=== PATIENT | female | born 1940 | race African-American/Black ===

== ENCOUNTER 2018-02-14 18:27 | Emergency (ER) | payer OTHER ==
[2018-02-14] MEDS ORDERED: LACTULOSE 20 GM/30 ML UCUP ONE (21:09)
[2018-02-14 21:15] LABS: Glomerular Filtration Rate > 60 mL/min (>60)
[2018-02-14 21:16] LABS: Potassium 4.1 mEq/L (3.6-5.0)
[2018-02-14 21:20] LABS: Absolute Monocytes 0.5 K/uL (0.1-1.3); Absolute Neutrophil 7.4 K/uL (1.8-8.0); Basophils % 0.5 % (0-1.3); Eosinophils % 0.6 % (0-4.4); Hematocrit 40.7 % (36.0-45.0); Lymphocytes % 20.1 % (15.3-44.8); MCV 100.5 fL (80-100); MPV 10.3 fL (7.6-11.3); Monocytes % 5.4 % (3.3-12.3); RBC Red Blood Cell Count 4.05 M/uL (3.86-4.86)
[2018-02-14 21:22] LABS: Albumin 4.6 g/dL (3.2-5.5); Bilirubin Direct 0.1 mg/dL (0-0.2); Bilirubin Total 1.1 mg/dL (0.3-1.2); Protein, Total 8.1 g/dL (6.0-8.3)
--- NOTE | 2018-02-14 21:43 | ER ---
Nurse's Notes [facility] Name: Estefani Leiva Age: 77 yrs Sex: Female : 1940 Arrival Date: 02/14/2018 Time: 18:31 Bed 14 Private MD: Diagnosis: Constipation, unspecified;Chronic kidney disease, unspecified Presentation: 02/14 18:33 Presenting complaint: Patient states: she hasnt had a bowel movement for 4 days; hx of hj constipation and tried everything; reports nausea and vomiting;. Transition of care: patient was not received from another setting of care. Onset of symptoms was February 14, 2018. Care prior to arrival: None. 18:33 Method Of Arrival: Ambulatory hj 18:33 Acuity: LEORA 3 hj Triage Assessment: 18:35 General: Appears in no apparent distress. uncomfortable, Behavior is calm, cooperative, hj appropriate for age. Pain: Complains of pain in abdomen. GI: Abdomen is non-distended. Historical: - Allergies: 18:35 No Known Allergies; hj - Home Meds: 18:35 amlodipine 10 mg tab 1 tab once daily [Active]; aspirin 81 mg Oral TbEC 1 tab once hj daily [Active]; atorvastatin 40 mg Oral tab 1 tab once daily [Active]; gabapentin 400 mg Oral cap 1 cap 3 times per day [Active]; Humulin 70/30 100 unit/mL (70-30) Sub-Q susp nightly [Active]; isosorbide dinitrate 30 mg Oral tab 1 tab daily [Active]; metformin 1,000 mg Oral tr24 1 tab twice a day [Active]; metoprolol tartrate 100 mg Oral tab 1 tab 2 times per day [Active]; Vesicare 5 mg Oral tab 1 tab once daily [Active]; - PMHx: 18:35 CVA; Diabetes - NIDDM; Hyperlipidemia; Hypertension; hj - PSHx: 18:35 Hysterectomy; hj - Immunization history:: Adult Immunizations up to date. - Family history:: not pertinent. - Social history:: Smoking status: unknown. - Hospitalizations: : No recent hospitalization is reported. - History obtained from: sister. Screenin:50 Abuse screen: Denies threats or abuse. Denies injuries from another. Nutritional aj1 screening: No deficits noted. Tuberculosis screening: No symptoms or risk factors identified. 22:00 Fall Risk None identified. aj1 Assessment: 18:36 GI: Bowel sounds 20:50 General: Appears in no apparent distress. comfortable, Behavior is calm, cooperative, aj1 appropriate for age. Pain: Complains of pain in abdomen. Neuro: Level of Consciousness is awake, alert, obeys commands, Oriented to person, place, time, situation, Speech is normal, Facial symmetry appears normal. Cardiovascular: Patient's skin is warm and dry. Respiratory: Airway is patent Respiratory effort is even, unlabored, Respiratory pattern is regular, symmetrical. GI: Abdomen is round non-distended, Bowel sounds present X 4 quads. Abd is soft and non tender X 4 quads. Reports constipation, Patient currently denies diarrhea, nausea, vomiting. : No signs and/or symptoms were reported regarding the genitourinary system. EENT: No signs and/or symptoms were reported regarding the EENT system. Derm: No signs and/or symptoms reported regarding the dermatologic system. Skin is pink, warm \T\ dry. normal. Musculoskeletal: No signs and/or symptoms reported regarding the musculoskeletal system. Circulation, motion, and sensation intact. 21:37 Reassessment: Patient appears in no apparent distress at this time. No changes from aj1 previously documented assessment. Patient and/or family updated on plan of care and expected duration. Pain level reassessed. Patient is alert, oriented x 3, equal unlabored respirations, skin warm/dry/pink. 22:00 Reassessment: Patient appears in no apparent distress at this time. No changes from aj1 previously documented assessment. Patient and/or family updated on plan of care and expected duration. Pain level reassessed. Patient is alert, oriented x 3, equal unlabored respirations, skin warm/dry/pink. Vital Signs: 18:36 BP 120 / 56; Pulse 94; Resp 18; Temp 98.5(O); Pulse Ox 99% on R/A; Weight 77.11 kg; Height 5 ft. 7 in. (170.18 cm); Pain 10/10; 20:50 BP 182 / 80; Pulse 89; Resp 18; Pulse Ox 97% ; aj1 21:38 BP 160 / 73; Pulse 91; Resp 18; Pulse Ox 98% on R/A; aj1 18:36 Body Mass Index 26.63 (77.11 kg, 170.18 cm) ED Course: 18:31 Patient arrived in ED. mr 18:34 Triage completed. hj 18:36 Arm band placed on left wrist. 20:33 [facility] Portillo [facility]. ka 20:33 Nader Santos MD is Attending Physician. ka 20:46 Tabitha Jean Baptiste, RN is Primary Nurse. aj1 20:50 Patient has correct armband on for positive identification. Bed in low position. Call aj1 light in reach. Side rails up X 1. 20:50 No provider procedures requiring assistance completed. Initial lab(s) drawn, by mn, aj1 sent to lab. Inserted saline lock: 20 gauge in left antecubital area, using aseptic technique. Blood collected. 22:00 IV discontinued, intact, bleeding controlled, No redness/swelling at site. Pressure aj1 dressing applied. Administered Medications: 21:09 Drug: Lactulose 20 grams Volume: 30 ml; Route: PO; aj1 22:40 Follow up: Response: No adverse reaction aj 22:27 Drug: [place] (7.5 mg-325 mg) 1 tabs Route: PO; aj1 22:40 Follow up: Response: No adverse reaction aj Outcome: 21:42 Discharge ordered by . ka 22:00 Discharged to home via wheelchair, with family. aj1 22:00 Condition: good 22:00 Discharge instructions given to patient, Instructed on discharge instructions, follow up and referral plans. medication usage, Demonstrated understanding of instructions, follow-up care, medications, Prescriptions given X 1. 22:44 Patient left the ED. [facility] Signatures: Tabitha Jean Baptiste, RN RN aj Clari Portillo FNP FNP kav Rivera, Maria mr De La GarzaEdgar RN RN Corrections: (The following items were deleted from the chart) 18:34 18:33 Presenting complaint: Patient states: she hasnt had a bowel movement for 4 days; hj hx of constipation and tried everything; hj 18:39 18:36 Pulse 101bpm; Resp 18bpm; Pulse Ox 99% RA; Temp 98.5F Oral; 77.11 kg; Height 5 hj ft. 7 in.; BMI: 26.6; Pain 10/10; hj
--- NOTE | 2018-02-14 21:43 | EDPHYS ---
Physician Documentation [facility] Name: Estefani Leiva Age: 77 yrs Sex: Female : 1940 Arrival Date: 02/14/2018 Time: 18:31 Bed 14 Private MD: ED Physician Nader Santos HPI: 02/14 20:33 This 77 yrs old Black Female presents to ER via Ambulatory with complaints of kav Constipation. 20:35 Onset: The symptoms/episode began/occurred 4 day(s) ago. Associated signs and symptoms: kav Pertinent positives:. 20:55 The patient has not recently seen a physician. reports diffuse "...crampy abdominal kav pain". 20:56 The patient presents with abdominal pain that is diffuse. Onset: The symptoms/episode kav began/occurred acutely, 4 day(s) ago. The symptoms do not radiate. Associated signs and symptoms: Pertinent positives: constipation, Pertinent negatives: nausea and vomiting, blood in stools. The symptoms are described as crampy. Modifying factors: The symptoms are alleviated by nothing, the symptoms are aggravated by nothing. Severity of pain: At its worst the pain was very mild just prior to arrival. The patient has experienced a previous episode, approximately 1 years ago. Historical: - Allergies: 18:35 No Known Allergies; hj - Home Meds: 18:35 amlodipine 10 mg tab 1 tab once daily [Active]; aspirin 81 mg Oral TbEC 1 tab once hj daily [Active]; atorvastatin 40 mg Oral tab 1 tab once daily [Active]; gabapentin 400 mg Oral cap 1 cap 3 times per day [Active]; Humulin 70/30 100 unit/mL (70-30) Sub-Q susp nightly [Active]; isosorbide dinitrate 30 mg Oral tab 1 tab daily [Active]; metformin 1,000 mg Oral tr24 1 tab twice a day [Active]; metoprolol tartrate 100 mg Oral tab 1 tab 2 times per day [Active]; Vesicare 5 mg Oral tab 1 tab once daily [Active]; - PMHx: 18:35 CVA; Diabetes - NIDDM; Hyperlipidemia; Hypertension; hj - PSHx: 18:35 Hysterectomy; hj - Immunization history:: Adult Immunizations up to date. - Family history:: not pertinent. - Social history:: Smoking status: unknown. - Hospitalizations: : No recent hospitalization is reported. - History obtained from: sister. ROS: 20:58 Constitutional: Negative for fever, chills, and weight loss, Eyes: Negative for injury, kav pain, redness, and discharge, ENT: Negative for injury, pain, and discharge, Neck: Negative for injury, pain, and swelling, Cardiovascular: Negative for chest pain, palpitations, and edema, Respiratory: Negative for shortness of breath, cough, wheezing, and pleuritic chest pain, Back: Negative for injury and pain, : Negative for injury, bleeding, discharge, and swelling, MS/Extremity: Negative for injury and deformity, Skin: Negative for injury, rash, and discoloration, Neuro: Negative for headache, weakness, numbness, tingling, and seizure, Psych: Negative for depression, anxiety, suicide ideation, homicidal ideation, and hallucinations, Allergy/Immunology: Negative for hives, rash, and allergies, Endocrine: Negative for neck swelling, polydipsia, polyuria, polyphagia, and marked weight changes, Hematologic/Lymphatic: Negative for swollen nodes, abnormal bleeding, and unusual bruising. 20:58 Abdomen/GI: Positive for abdominal pain, constipation, abdominal cramps, Negative for nausea and vomiting, diarrhea, abdominal distension, black/tarry stool, rectal pain, rectal bleeding. Exam: 20:58 Constitutional: This is a well developed, well nourished patient who is awake, alert, kav and in no acute distress. Head/Face: Normocephalic, atraumatic. Eyes: Pupils equal round and reactive to light, extra-ocular motions intact. Lids and lashes normal. Conjunctiva and sclera are non-icteric and not injected. Cornea within normal limits. Periorbital areas with no swelling, redness, or edema. ENT: Nares patent. No nasal discharge, no septal abnormalities noted. Tympanic membranes are normal and external auditory canals are clear. Oropharynx with no redness, swelling, or masses, exudates, or evidence of obstruction, uvula midline. Mucous membranes moist. Neck: Trachea midline, no thyromegaly or masses palpated, and no cervical lymphadenopathy. Supple, full range of motion without nuchal rigidity, or vertebral point tenderness. No Meningismus. Chest/axilla: Normal chest wall appearance and motion. Nontender with no deformity. No lesions are appreciated. Cardiovascular: Regular rate and rhythm with a normal S1 and S2. No gallops, murmurs, or rubs. Normal PMI, no JVD. No pulse deficits. Respiratory: Lungs have equal breath sounds bilaterally, clear to auscultation and percussion. No rales, rhonchi or wheezes noted. No increased work of breathing, no retractions or nasal flaring. Back: No spinal tenderness. No costovertebral tenderness. Full range of motion. Skin: Warm, dry with normal turgor. Normal color with no rashes, no lesions, and no evidence of cellulitis. MS/ Extremity: Pulses equal, no cyanosis. Neurovascular intact. Full, normal range of motion. Neuro: Awake and alert, GCS 15, oriented to person, place, time, and situation. Cranial nerves II-XII grossly intact. Motor strength 5/5 in all extremities. Sensory grossly intact. Cerebellar exam normal. Normal gait. Psych: Awake, alert, with orientation to person, place and time. Behavior, mood, and affect are within normal limits. 20:58 Abdomen/GI: Inspection: abdomen appears normal, Bowel sounds: normal, in all quadrants, Palpation: soft, in all quadrants, mild abdominal tenderness, in all quadrants. Vital Signs: 18:36 BP 120 / 56; Pulse 94; Resp 18; Temp 98.5(O); Pulse Ox 99% on R/A; Weight 77.11 kg; hj Height 5 ft. 7 in. (170.18 cm); Pain 10/10; 20:50 BP 182 / 80; Pulse 89; Resp 18; Pulse Ox 97% ; aj1 21:38 BP 160 / 73; Pulse 91; Resp 18; Pulse Ox 98% on R/A; aj1 18:36 Body Mass Index 26.63 (77.11 kg, 170.18 cm) MDM: 20:33 Patient medically screened. kav 20:58 Data reviewed: vital signs, nurses notes. kav 21:31 Data reviewed: lab test result(s), CBC, electrolytes, creatinine, 1.03. kav 21:33 Data reviewed: lab test result(s), electrolytes, baseline creatinine 1.03. patient is kav at baseline. 21:37 ED course: patient reports abdominal pain 7/10. kav 02/14 20:36 Order name: Amylase, Serum kav 02/14 20:36 Order name: Basic Metabolic Panel [facility] 02/14 20:36 Order name: CBC with Diff [facility] 02/14 20:36 Order name: Creatinine for Radiology [facility] 02/14 20:36 Order name: Hepatic Function [facility] 02/14 20:36 Order name: Lipase [facility] 02/14 20:36 Order name: Urine Microscopic Only [facility] 02/14 21:16 Order name: Creatinine (Radiology Only); Complete Time: 21:29 EDMS 02/14 21:29 Interpretation: Normal except: CRE 1.07. [facility] 02/14 21:16 Order name: Basic Metabolic Panel; Complete Time: 21:29 EDMS 02/14 21:29 Interpretation: Normal except: GLUC 123; CRE 1.03; GFR 63. [facility] 02/14 21:16 Order name: Lipase; Complete Time: 21:29 EDMS 02/14 21:30 Interpretation: Abnormal: LIP 16. [facility] 02/14 21:22 Order name: CBC with Automated Diff; Complete Time: 21:50 EDOH 02/14 21:29 Interpretation: Normal except: MCV 100.5; RDW 15.4. [facility] 02/14 21:22 Order name: Liver (Hepatic) Function; Complete Time: 21:29 EDMS 02/14 21:29 Interpretation: Within normal limits. [facility] 02/14 21:22 Order name: Amylase Level; Complete Time: 21:30 EDMS 02/14 21:30 Interpretation: Abnormal: PATRICIA 199. [facility] 02/14 21:46 Order name: CBC Smear Scan; Complete Time: 21:50 EDOH 02/14 20:36 Order name: IV Saline Lock; Complete Time: 21:09 [facility] 02/14 20:36 Order name: Labs collected and sent; Complete Time: 21:09 [facility] Administered Medications: 21:09 Drug: Lactulose 20 grams Volume: 30 ml; Route: PO; aj1 22:40 Follow up: Response: No adverse reaction aj1 22:27 Drug: [place] (7.5 mg-325 mg) 1 tabs Route: PO; aj1 22:40 Follow up: Response: No adverse reaction aj1 Disposition: 02/15 06:21 Co-signature as Attending Physician, Nader Santos MD. Disposition: 02/14/18 21:42 Discharged to Home. Impression: Constipation, unspecified, Chronic kidney disease, unspecified. - Condition is Stable. - Discharge Instructions: Constipation, Adult, [id number]. - Prescriptions for Miralax 17 gram/dose Oral - take 1 packet by ORAL route once daily dilute powder in 8 ounces of water or juice; 1 Container. - Medication Reconciliation Form, Thank You Letter, Antibiotic Education, Prescription Opioid Use form. - Follow up: Private Physician; When: 1 week; Reason: Recheck today's complaints, Continuance of care, Re-evaluation by your physician. - Problem is new. - Symptoms are unchanged. - Notes: f/u with nephrology for chronic kidney disease. baseline creatinine 1.3 Signatures: Dispatcher [employer] EDMS Tabitha Jean Baptiste RN RN ajClari Camarillo FNP Edgar Brown RN RN hj Nader Santos MD MD gs Corrections: (The following items were deleted from the chart) 02/14 20:57 20:55 Modifying factors: The patient symptoms are alleviated by nothing, the patient kav symptoms are aggravated by nothing, kav 20:57 20:55 The patient has experienced similar episodes in the past, chronically, kav kav 20:57 20:55 The patient has experienced a previous episode, approximately 1 years ago, The kav patient has experienced similar episodes in the past, chronically, kav
[2018-02-14 21:45] LABS: Platelet Estimate ADEQ; Urine White Blood Cell Casts OK
[2018-02-14 21:46] LABS: Anisocytosis SLIGHT; Blood Morphology Comment NOTED (NOT SEEN); Poikilocytosis SLIGHT
[2018-02-14] MEDS ORDERED: HYDROCODONE/APAP 7.5/325 MG TAB ONE (22:40)
[2018-02-14 22:54] VITALS: TEMP 98.5
[2018-02-14 22:56] VITALS: BP 160/73; O2SAT 98
== END 2018-02-14 22:44 | disposition home or self-care (01) ==
LOC: ER 18:27
DX: K59.00 Constipation, unspecified (principal); N18.9 Chronic kidney disease, unspecified; E11.9 Type 2 diabetes mellitus without complications; E78.5 Hyperlipidemia, unspecified; I10 Essential (primary) hypertension
CPT/HCPCS: 36415; 80048; 80076; 82150; 83690; 85025; 99284

== ENCOUNTER 2018-07-13 10:41 | Emergency (ER) | payer OTHER ==
[2018-07-13 12:20] LABS: Absolute Lymphocytes (CBC) 1.2 K/uL (0.7-4.9); Absolute Monocytes 0.3 K/uL (0.1-1.3); Absolute Neutrophil 4.1 K/uL (1.8-8.0); Basophils % 0.7 % (0-1.3); Eosinophils % 1.4 % (0-4.4); Hematocrit 40.8 % (36.0-45.0); Lymphocytes % 20.4 % (15.3-44.8); MCH 32.6 pg (27.0-35.0); MPV 11.8 fL (7.6-11.3); Monocytes % 5.8 % (3.3-12.3); RBC Red Blood Cell Count 4.08 M/uL (3.86-4.86)
[2018-07-13 12:28] LABS: Potassium 4.1 mmol/L (3.5-5.1)
--- NOTE | 2018-07-13 13:15 | ER ---
Nurse's Notes [facility] Name: Estefani Leiva Age: 78 yrs Sex: Female : 1940 Arrival Date: 07/13/2018 Time: 10:45 Bed 13 Private MD: Deo Peres Diagnosis: Diarrhea, unspecified Presentation: 07/13 11:10 Presenting complaint: Patient states: Chronic loose stool for 2-3 months. Seen in this ER and followed up with PCP for same complaint. Reports 3-4 loose stools this AM. Transition of care: patient was not received from another setting of care. Onset of symptoms was March 2018. Risk Assessment: Do you want to hurt yourself or someone else? Patient reports no desire to harm self or others. Initial Sepsis Screen: Does the patient meet any 2 criteria? No. Patient's initial sepsis screen is negative. Does the patient have a suspected source of infection? No. Patient's initial sepsis screen is negative. Care prior to arrival: None. 11:10 Method Of Arrival: Ambulatory 11:10 Acuity: LEORA 4 Triage Assessment: 11:13 General: Appears in no apparent distress. comfortable, Behavior is calm, cooperative, aj appropriate for age. Pain: Denies pain. Neuro: Level of Consciousness is awake, alert, obeys commands, Oriented to person, place, time, situation, Appropriate for age. Respiratory: Airway is patent Respiratory effort is even, unlabored, Respiratory pattern is regular, symmetrical. GI: Abdomen is flat, non-distended, Reports diarrhea. Derm: Skin is intact, is healthy with good turgor, Skin is pink, warm \T\ dry. normal. Historical: - Allergies: 11:13 No Known Allergies; - Home Meds: 11:13 amlodipine 10 mg tab 1 tab once daily [Active]; aspirin 81 mg Oral TbEC 1 tab once aj daily [Active]; atorvastatin 40 mg Oral tab 1 tab once daily [Active]; gabapentin 400 mg Oral cap 1 cap 3 times per day [Active]; Humulin 70/30 100 unit/mL (70-30) Sub-Q susp nightly [Active]; isosorbide dinitrate 30 mg Oral tab 1 tab daily [Active]; metformin 1,000 mg Oral tr24 1 tab twice a day [Active]; metoprolol tartrate 100 mg Oral tab 1 tab 2 times per day [Active]; Vesicare 5 mg Oral tab 1 tab once daily [Active]; - PMHx: 11:13 CVA; Diabetes - NIDDM; Hyperlipidemia; Hypertension; aj - PSHx: 11:13 Hysterectomy; aj - Immunization history:: Adult Immunizations up to date. - Social history:: Smoking status: Patient/guardian denies using tobacco. - Ebola Screening: : Patient negative for fever greater than or equal to 101.5 degrees Fahrenheit, and additional compatible Ebola Virus Disease symptoms Patient denies exposure to infectious person Patient denies travel to an Ebola-affected area in the 21 days before illness onset No symptoms or risks identified at this time. Screenin:07 Abuse screen: Denies threats or abuse. Denies injuries from another. Nutritional aj screening: No deficits noted. Tuberculosis screening: No symptoms or risk factors identified. Fall Risk None identified. Assessment: 12:07 Reassessment: see triage. aj 12:07 Reassessment: Patient appears in no apparent distress at this time. No changes from aj previously documented assessment. Patient and/or family updated on plan of care and expected duration. Pain level reassessed. Patient is alert, oriented x 3, equal unlabored respirations, skin warm/dry/pink. Patient denies pain at this time. Vital Signs: 11:15 BP 176 / 90; Pulse 89; Resp 16; Temp 98.9; Pulse Ox 98% on R/A; Weight 72.57 kg; Height aj 5 ft. 9 in. (175.26 cm); Pain 0/10; 11:15 Body Mass Index 23.63 (72.57 kg, 175.26 cm) aj ED Course: 10:45 Patient arrived in ED. mr 10:45 Deo Peres MD is Private Physician. mr 11:10 Christina Gómez, RN is Primary Nurse. aj 11:12 Triage completed. aj 11:15 Arm band placed on left wrist. Patient placed in an exam room. aj 11:27 Nader Santos MD is Attending Physician. gs 12:07 Patient has correct armband on for positive identification. Bed in low position. Call aj light in reach. Side rails up X 1. Adult w/ patient. Pulse ox on. NIBP on. 12:07 Inserted saline lock: 20 gauge in left antecubital area, using aseptic technique. Blood aj collected. 13:01 XRAY Abdomen Acute Series In Process Unspecified. EDMS 13:15 Juan Jose Herman MD is Referral Physician. Administered Medications: No medications were administered Outcome: 13:15 Discharge ordered by . 13:50 Patient left the ED. [facility] Signatures: Dispatcher [employer] EDMS Christina Gómez RN RN aj Rivera, Maria mr Martinez, Maria [facility] Nader Santos MD MD Corrections: (The following items were deleted from the chart) 11:16 11:10 Acuity: LEORA 3 aj aj
--- NOTE | 2018-07-13 13:15 | EDPHYS ---
Physician Documentation [facility] Name: Estefani Leiva Age: 78 yrs Sex: Female : 1940 Arrival Date: 07/13/2018 Time: 10:45 Bed 13 Private MD: Deo Peres ED Physician Nader Santos HPI: 07/13 13:13 This 78 yrs old Black Female presents to ER via Ambulatory with complaints of Diarrhea. gs 13:13 The patient presents to the emergency department with diarrhea, loose stools. Onset: gs The symptoms/episode began/occurred 3 month(s) ago. Possible causes: unknown. The symptoms are aggravated by nothing. The symptoms are alleviated by nothing. Associated signs and symptoms: Pertinent negatives: abdominal pain, fever. Severity of symptoms: At their worst the symptoms were moderate in the emergency department the symptoms are unchanged. The patient has experienced similar episodes in the past, a few times. Historical: - Allergies: 11:13 No Known Allergies; aj - Home Meds: 11:13 amlodipine 10 mg tab 1 tab once daily [Active]; aspirin 81 mg Oral TbEC 1 tab once aj daily [Active]; atorvastatin 40 mg Oral tab 1 tab once daily [Active]; gabapentin 400 mg Oral cap 1 cap 3 times per day [Active]; Humulin 70/30 100 unit/mL (70-30) Sub-Q susp nightly [Active]; isosorbide dinitrate 30 mg Oral tab 1 tab daily [Active]; metformin 1,000 mg Oral tr24 1 tab twice a day [Active]; metoprolol tartrate 100 mg Oral tab 1 tab 2 times per day [Active]; Vesicare 5 mg Oral tab 1 tab once daily [Active]; - PMHx: 11:13 CVA; Diabetes - NIDDM; Hyperlipidemia; Hypertension; aj - PSHx: 11:13 Hysterectomy; aj - Immunization history:: Adult Immunizations up to date. - Social history:: Smoking status: Patient/guardian denies using tobacco. - Ebola Screening: : Patient negative for fever greater than or equal to 101.5 degrees Fahrenheit, and additional compatible Ebola Virus Disease symptoms Patient denies exposure to infectious person Patient denies travel to an Ebola-affected area in the 21 days before illness onset No symptoms or risks identified at this time. ROS: 13:13 All other systems are negative. gs Exam: 13:13 Head/Face: Normocephalic, atraumatic. Eyes: Pupils equal round and reactive to light, gs extra-ocular motions intact. Lids and lashes normal. Conjunctiva and sclera are non-icteric and not injected. Cornea within normal limits. Periorbital areas with no swelling, redness, or edema. ENT: Nares patent. No nasal discharge, no septal abnormalities noted. Tympanic membranes are normal and external auditory canals are clear. Oropharynx with no redness, swelling, or masses, exudates, or evidence of obstruction, uvula midline. Mucous membranes moist. Neck: Trachea midline, no thyromegaly or masses palpated, and no cervical lymphadenopathy. Supple, full range of motion without nuchal rigidity, or vertebral point tenderness. No Meningismus. Chest/axilla: Normal chest wall appearance and motion. Nontender with no deformity. No lesions are appreciated. Cardiovascular: Regular rate and rhythm with a normal S1 and S2. No gallops, murmurs, or rubs. Normal PMI, no JVD. No pulse deficits. Respiratory: Lungs have equal breath sounds bilaterally, clear to auscultation and percussion. No rales, rhonchi or wheezes noted. No increased work of breathing, no retractions or nasal flaring. Abdomen/GI: Soft, non-tender, with normal bowel sounds. No distension or tympany. No guarding or rebound. No evidence of tenderness throughout. Back: No spinal tenderness. No costovertebral tenderness. Full range of motion. Skin: Warm, dry with normal turgor. Normal color with no rashes, no lesions, and no evidence of cellulitis. MS/ Extremity: Pulses equal, no cyanosis. Neurovascular intact. Full, normal range of motion. Neuro: Awake and alert, GCS 15, oriented to person, place, time, and situation. Cranial nerves II-XII grossly intact. Motor strength 5/5 in all extremities. Sensory grossly intact. Cerebellar exam normal. Normal gait. 13:13 Constitutional: The patient appears alert, awake. Vital Signs: 11:15 BP 176 / 90; Pulse 89; Resp 16; Temp 98.9; Pulse Ox 98% on R/A; Weight 72.57 kg; Height aj 5 ft. 9 in. (175.26 cm); Pain 0/10; 11:15 Body Mass Index 23.63 (72.57 kg, 175.26 cm) gela MDM: 11:44 Patient medically screened. 13:13 Data reviewed: vital signs, nurses notes. Response to treatment: There is no gs appreciated change of the patient's symptoms at this time, and as a result, I will discharge patient. ED course: pt with chronic loose stools / diarrhea will discharge refer to gi. 07/13 11:51 Order name: CBC with Diff; Complete Time: 12:48 07/13 11:51 Order name: Basic Metabolic Panel; Complete Time: 12:48 07/13 11:51 Order name: XRAY Abdomen Acute Series Administered Medications: No medications were administered Disposition: 07/13/18 13:15 Discharged to Home. Impression: Diarrhea, unspecified. - Condition is Stable. - Discharge Instructions: Chronic Diarrhea. - Medication Reconciliation Form, Thank You Letter, Antibiotic Education, Prescription Opioid Use form. - Follow up: Juan Jose Herman MD; When: 2 - 3 days; Reason: Re-evaluation by your physician. Signatures: Dispatcher [employer] EDChristina Alvarenga RN RN aj [place] [id number] Nader Santos MD MD Corrections: (The following items were deleted from the chart) 13:50 13:15 07/13/2018 13:15 Discharged to Home. Impression: Diarrhea, unspecified. Condition mh5 is Stable. Forms are Medication Reconciliation Form, Thank You Letter, Antibiotic Education, Prescription Opioid Use. Follow up: Juan Jose Herman; When: 2 - 3 days; Reason: Re-evaluation by your physician.
[2018-07-13 13:55] VITALS: BP 176/90; TEMP 98.9; O2SAT 98
--- NOTE | 2018-07-13 14:13 | RAD REPORT ---
EXAM DESCRIPTION: RAD - Abdomen Acute Series - 07/13/2018 1:03 pm CLINICAL HISTORY: Abdominal pain and constipation FINDINGS: Free air is not seen beneath the diaphragm Bilateral interstitial lung opacities are probably mostly chronic. The bowel gas pattern is unremarkable Vascular calcifications are noted
== END 2018-07-13 13:50 | disposition home or self-care (01) ==
LOC: ER 10:41
DX: R19.7 Diarrhea, unspecified (principal); E11.9 Type 2 diabetes mellitus without complications; Z79.4 Long term (current) use of insulin; Z79.84 Long term (current) use of oral hypoglycemic drugs; I10 Essential (primary) hypertension; E78.5 Hyperlipidemia, unspecified; Z86.73 Personal history of transient ischemic attack (TIA), and cerebral infarction without residual deficits
CPT/HCPCS: 36415; 74022; 80048; 85025; 99284

== ENCOUNTER 2018-09-10 04:24 | Observation (INO) | payer OTHER ==
[2018-09-10] MEDS ORDERED: FUROSEMIDE 20 MG/ 2ML VIAL ONE (05:07)
[2018-09-10] MEDS ORDERED: IPRATROPIUM BROM 0.5MG/2.5ML ONE (05:07)
[2018-09-10] MEDS ORDERED: ALBUTEROL 2.5 MG/3 ML NEB SOL ONE (05:07)
[2018-09-10 05:44] LABS: Absolute Lymphocytes (CBC) 1.1 K/uL (0.7-4.9); Absolute Monocytes 0.3 K/uL (0.1-1.3); Absolute Neutrophil 7.5 K/uL (1.8-8.0); Basophils % 0.4 % (0-1.3); Eosinophils % 1.4 % (0-4.4); Hematocrit 40.2 % (36.0-45.0); Lymphocytes % 11.9 % (15.3-44.8); MCH 33.5 pg (27.0-35.0); MCV 102.9 fL (80-100); MPV 11.4 fL (7.6-11.3); Monocytes % 3.8 % (3.3-12.3); RBC Red Blood Cell Count 3.91 M/uL (3.86-4.86)
[2018-09-10 05:50] LABS: Protime INR 1.03
[2018-09-10] MEDS ORDERED: ONDANSETRON 4 MG/2 ML VIAL IV PRN (06:09)
[2018-09-10] MEDS ORDERED: MAGNESIUM HYDROXIDE 8% 30 ML PO PRN (06:09)
[2018-09-10] MEDS ORDERED: ACETAMINOPHEN 500 MG TAB PO PRN (06:09)
--- NOTE | 2018-09-10 06:09 | ER ---
Nurse's Notes [facility] Name: Estefani Leiva Age: 78 yrs Sex: Female : 1940 Arrival Date: 09/10/2018 Time: 04:38 Bed 7 Private MD: Deo Peres Diagnosis: Systolic (congestive) heart failure Presentation: 09/10 04:26 Presenting complaint: Patient states: that she is having trouble breathing and it fc started yesterday. Denies any cough or congestion. Transition of care: patient was not received from another setting of care. Onset of symptoms was September 09, 2018. Risk Assessment: Do you want to hurt yourself or someone else? Patient reports no desire to harm self or others. Initial Sepsis Screen: Does the patient meet any 2 criteria? No. Patient's initial sepsis screen is negative. Does the patient have a suspected source of infection? No. Patient's initial sepsis screen is negative. Care prior to arrival: Glucose check: 223. 04:26 Method Of Arrival: EMS: [facility] 04:26 Acuity: LEORA 3 fc Triage Assessment: 05:13 Respiratory: Reports shortness of breath at rest Onset: The symptoms/episode ao began/occurred at an unknown time. the patient has moderate shortness of breath. Historical: - Allergies: 04:46 No Known Allergies; fc - Home Meds: 04:46 atorvastatin 40 mg Oral tab 1 tab once daily [Active]; Vesicare 5 mg Oral tab 1 tab fc once daily [Active]; Humulin 70/30 100 unit/mL (70-30) Sub-Q susp 32 units in am and 20 units at night [Active]; isosorbide dinitrate 30 mg Oral tab 1 tab daily [Active]; metformin 1,000 mg Oral tr24 1 tab twice a day [Active]; metoprolol tartrate 100 mg Oral tab 1 tab 2 times per day [Active]; Miralax 17 gram/dose Oral powd once daily [Active]; trazodone 50 mg Oral tab 1 tab q hs prn [Active]; metronidazole 500 mg Oral tab 1 tab once daily [Active]; - PMHx: 04:46 CVA; Diabetes - NIDDM; Hyperlipidemia; Hypertension; Chronic Diarrhea; fc - PSHx: 04:46 Hysterectomy; fc - Immunization history:: Last tetanus immunization: unknown. - Social history:: Smoking status: Patient/guardian denies using tobacco, but has a distant history of tobacco abuse. - Ebola Screening: : Patient negative for fever greater than or equal to 101.5 degrees Fahrenheit, and additional compatible Ebola Virus Disease symptoms Patient denies exposure to infectious person Patient denies travel to an Ebola-affected area in the 21 days before illness onset. Screenin:26 Abuse screen: Denies threats or abuse. Nutritional screening: No deficits noted. fc Tuberculosis screening: No symptoms or risk factors identified. 05:13 Fall Risk None identified. ao Assessment: 04:45 General: Appears in no apparent distress. uncomfortable, Behavior is cooperative, ao anxious. Pain:. Neuro: Level of Consciousness is awake, obeys commands, Oriented to person, place, time, situation, Weakness Speech is normal. Cardiovascular: Heart tones S1 S2 Capillary refill < 3 seconds Patient's skin is warm and dry. Rhythm is sinus tachycardia. Respiratory: Airway is patent Respiratory effort is labored, Breath sounds with crackles Breath sounds are diminished bilaterally. GI: Abdomen is obese, Bowel sounds present X 4 quads. : Last void at 04:00. EENT: No signs and/or symptoms were reported regarding the EENT system. Derm: Skin is intact, Skin is pink, warm \T\ dry. normal, Skin temperature is warm. Musculoskeletal: Circulation, motion, and sensation intact. Range of motion: intact in all extremities. 04:47 Reassessment: Patient was all duty. Patient was cleaned with a clean diaper and a clean ao hospital gown. 05:45 Reassessment: Patient appears in no apparent distress at this time. Patient and/or ao family updated on plan of care and expected duration. Pain level reassessed. 06:20 Reassessment: Patient appears in no apparent distress at this time. Patient and/or ao family updated on plan of care and expected duration. Pain level reassessed. Dr Santos at bedside. Patient to stay in the hospital. Patient agree with POC. 07:05 General: Appears in no apparent distress. comfortable, Behavior is calm, cooperative, sv appropriate for age. Pain: Denies pain. Neuro: Level of Consciousness is awake, alert, obeys commands, Oriented to person, place, time, situation, Speech is normal. Respiratory: Respiratory effort is even, unlabored, Respiratory pattern is symmetrical, tachypnea. Derm: Skin is normal. 07:10 Reassessment: Pt cleaning of urinary incontinence. Brief changed, gown and linens sv changed. Vital Signs: 04:26 BP 149 / 98; Pulse 88; Resp 28; Temp 97.9(O); Pulse Ox 85% on R/A; Weight 86.18 kg (R); fc Height 5 ft. 6 in. (167.64 cm) (R); Pain 0/10; 04:28 Pulse Ox 94% on 4 lpm NC; fc 05:23 BP 149 / 98; Pulse 85; Resp 28; Pulse Ox 98% on Nebulizer Mask; Pain 0/10; ao 05:45 BP 145 / 75; Pulse 52; Resp 23; Pulse Ox 96% on 4 lpm NC; ao 06:20 BP 119 / 60; Pulse 68; Resp 23; Pulse Ox 98% on R/A; ao 07:27 BP 150 / 70; Pulse 73; Resp 23; Temp 97; Pulse Ox 98% 2 lpm ; sv 04:26 Body Mass Index 30.67 (86.18 kg, 167.64 cm) ED Course: 04:26 Arm band placed on Patient placed in an exam room, on a stretcher. fc 04:26 Patient has correct armband on for positive identification. Placed in gown. Bed in low fc position. Call light in reach. Side rails up X2. salon shampoo assistant on. Pulse ox on. NIBP on. 04:26 No provider procedures requiring assistance completed. fc 04:38 Patient arrived in ED. fc 04:38 Deo Peres MD is Private Physician. fc 04:40 Nader Santos MD is Attending Physician. gs 04:42 Triage completed. fc 04:46 Ron Canas RN is Primary Nurse. ao 04:56 EKG done, by ED staff, reviewed by Nader Santos MD. ao 05:01 X-ray completed. Portable x-ray completed in exam room. Patient tolerated procedure az well. 05:02 XRAY Chest (1 view) In Process Unspecified. EDMS 05:05 Inserted saline lock: 20 gauge in left antecubital area, using aseptic technique. Blood jd3 collected. 05:05 First set of blood cultures drawn by ED staff. ao 06:07 Marcela Cohen MD is Hospitalizing Provider. gs 07:26 Evy Hancock, RN is Primary Nurse. sv 07:32 Patient admitted, IV remains in place. intact. sv Administered Medications: 05:05 Drug: Albuterol 2.5 mg Route: Inhalation; ao 05:05 Drug: AtroVENT Aerosol 0.5 mg Route: Inhalation; ao 05:07 Drug: Lasix 20 mg Route: IVP; Site: left antecubital; ao 06:23 Follow up: Response: No adverse reaction ao 07:31 Drug: Aspirin Chewable Tablet 324 mg Route: PO; sv 07:33 Follow up: Response: No adverse reaction sv Outcome: 06:08 Decision to Hospitalize by Provider. gs 07:45 Admitted to Tele accompanied by tech, via stretcher, room 406, with oxygen, with chart, sv Report called to Deirdre WINKLER 07:45 Condition: stable 07:45 Instructed on the need for admit. 08:05 Patient left the ED. sv Signatures: Dispatcher [employer] EDMS Evy Hancock RN RN sv Chretien, Felicia, RN RN Ron Canas RN RN ao Starr, Gregory, MD MD Zach Shelton RN RN jHeidi Doyle Corrections: (The following items were deleted from the chart) 07:46 07:45 Instructed on the need for transfer, sv
--- NOTE | 2018-09-10 06:09 | EDPHYS ---
Physician Documentation [facility] Name: Estefani Leiva Age: 78 yrs Sex: Female : 1940 Arrival Date: 09/10/2018 Time: 04:38 Bed 7 Private MD: Deo Peres ED Physician Nader Santos HPI: 09/10 06:01 This 78 yrs old Black Female presents to ER via EMS with complaints of Shortness Of gs Breath. 06:01 The patient has shortness of breath at rest. Onset: The symptoms/episode began/occurred gs acutely, this morning. Duration: The symptoms are continuous, and are unchanged since they started. The patient's shortness of breath is aggravated by nothing, is alleviated by nothing. Associated signs and symptoms: Pertinent negatives: chest pain, diaphoresis, fever, hemoptysis. Severity of symptoms: At their worst the symptoms were severe in the emergency department the symptoms are unchanged. The patient has not experienced similar symptoms in the past. The patient has not recently seen a physician. Historical: - Allergies: 04:46 No Known Allergies; fc - Home Meds: 04:46 atorvastatin 40 mg Oral tab 1 tab once daily [Active]; Vesicare 5 mg Oral tab 1 tab fc once daily [Active]; Humulin 70/30 100 unit/mL (70-30) Sub-Q susp 32 units in am and 20 units at night [Active]; isosorbide dinitrate 30 mg Oral tab 1 tab daily [Active]; metformin 1,000 mg Oral tr24 1 tab twice a day [Active]; metoprolol tartrate 100 mg Oral tab 1 tab 2 times per day [Active]; Miralax 17 gram/dose Oral powd once daily [Active]; trazodone 50 mg Oral tab 1 tab q hs prn [Active]; metronidazole 500 mg Oral tab 1 tab once daily [Active]; - PMHx: 04:46 CVA; Diabetes - NIDDM; Hyperlipidemia; Hypertension; Chronic Diarrhea; fc - PSHx: 04:46 Hysterectomy; fc - Immunization history:: Last tetanus immunization: unknown. - Social history:: Smoking status: Patient/guardian denies using tobacco, but has a distant history of tobacco abuse. - Ebola Screening: : Patient negative for fever greater than or equal to 101.5 degrees Fahrenheit, and additional compatible Ebola Virus Disease symptoms Patient denies exposure to infectious person Patient denies travel to an Ebola-affected area in the 21 days before illness onset. ROS: 06:01 All other systems are negative. gs Exam: 06:01 Head/Face: Normocephalic, atraumatic. Eyes: Pupils equal round and reactive to light, gs extra-ocular motions intact. Lids and lashes normal. Conjunctiva and sclera are non-icteric and not injected. Cornea within normal limits. Periorbital areas with no swelling, redness, or edema. ENT: Nares patent. No nasal discharge, no septal abnormalities noted. Tympanic membranes are normal and external auditory canals are clear. Oropharynx with no redness, swelling, or masses, exudates, or evidence of obstruction, uvula midline. Mucous membranes moist. Neck: Trachea midline, no thyromegaly or masses palpated, and no cervical lymphadenopathy. Supple, full range of motion without nuchal rigidity, or vertebral point tenderness. No Meningismus. Chest/axilla: Normal chest wall appearance and motion. Nontender with no deformity. No lesions are appreciated. 06:01 Abdomen/GI: Soft, non-tender, with normal bowel sounds. No distension or tympany. No guarding or rebound. No evidence of tenderness throughout. Back: No spinal tenderness. No costovertebral tenderness. Full range of motion. Skin: Warm, dry with normal turgor. Normal color with no rashes, no lesions, and no evidence of cellulitis. MS/ Extremity: Pulses equal, no cyanosis. Neurovascular intact. Full, normal range of motion. Neuro: Awake and alert, GCS 15, oriented to person, place, time, and situation. Cranial nerves II-XII grossly intact. Motor strength 5/5 in all extremities. Sensory grossly intact. Cerebellar exam normal. Normal gait. 06:01 Constitutional: The patient appears alert, awake, in obvious distress, severely distressed. 06:01 Cardiovascular: Rate: normal, Rhythm: regular, Pulses: no pulse deficits are appreciated. 06:01 ECG was reviewed by the Attending Physician. 06:01 Respiratory: moderate respiratory distress is noted, Respirations: tachypnea, Breath sounds: rales, that are moderate, are heard diffusely. Vital Signs: 04:26 BP 149 / 98; Pulse 88; Resp 28; Temp 97.9(O); Pulse Ox 85% on R/A; Weight 86.18 kg (R); fc Height 5 ft. 6 in. (167.64 cm) (R); Pain 0/10; 04:28 Pulse Ox 94% on 4 lpm NC; fc 05:23 BP 149 / 98; Pulse 85; Resp 28; Pulse Ox 98% on Nebulizer Mask; Pain 0/10; ao 05:45 BP 145 / 75; Pulse 52; Resp 23; Pulse Ox 96% on 4 lpm NC; ao 06:20 BP 119 / 60; Pulse 68; Resp 23; Pulse Ox 98% on R/A; ao 07:27 BP 150 / 70; Pulse 73; Resp 23; Temp 97; Pulse Ox 98% 2 lpm ; sv 04:26 Body Mass Index 30.67 (86.18 kg, 167.64 cm) fc MDM: 04:40 Patient medically screened. 06:01 Differential diagnosis: CHF exacerbation, Chronic Obstructive Pulmonary Disease gs Myocardial Infarction pneumonia. Data reviewed: vital signs, nurses notes. Response to treatment: the patient's symptoms have markedly improved after treatment, and as a result, I will admit patient. 09/10 04:45 Order name: Basic Metabolic Panel; Complete Time: 07:36 09/10 04:45 Order name: CBC with Diff; Complete Time: 05:55 09/10 04:45 Order name: LFT's; Complete Time: 07:36 09/10 04:45 Order name: Magnesium; Complete Time: 07:36 09/10 04:45 Order name: NT PRO-BNP; Complete Time: 07:36 09/10 04:45 Order name: PT-INR; Complete Time: 06:27 09/10 04:45 Order name: Troponin (emerg Dept Use Only); Complete Time: 07:36 09/10 04:50 Order name: Blood Culture* 09/10 06:15 Order name: CBC with Automated Diff EDMS 09/10 06:15 Order name: CBC with Automated Diff EDMS 09/10 06:15 Order name: Comprehensive Metabolic Panel EDMS 09/10 06:15 Order name: Comprehensive Metabolic Panel EDMS 09/10 06:15 Order name: Magnesium EDMS 09/10 06:15 Order name: Magnesium EDMS 09/10 04:45 Order name: XRAY Chest (1 view) 09/10 04:45 Order name: EKG; Complete Time: 04:46 09/10 06:15 Order name: CONS Physician Consult [facility] 09/10 06:15 Order name: Heart Healthy [facility] 09/10 06:15 Order name: Echo with Doppler [facility] 09/10 06:15 Order name: Phosphorus [facility] 09/10 06:15 Order name: Phosphorus [facility] 09/10 06:15 Order name: NT PRO-BNP [facility] 09/10 06:15 Order name: NT PRO-BNP [facility] 09/10 06:15 Order name: Troponin I [facility] 09/10 06:15 Order name: Troponin I [facility] 09/10 06:15 Order name: Troponin I [facility] 09/10 04:45 Order name: Cardiac monitoring; Complete Time: 04:52 09/10 04:45 Order name: EKG - Nurse/Tech; Complete Time: 04:52 09/10 04:45 Order name: IV Saline Lock; Complete Time: 05:10 09/10 04:45 Order name: Labs collected and sent; Complete Time: 05:10 09/10 04:45 Order name: O2 Per Protocol; Complete Time: 04:52 09/10 04:45 Order name: O2 Sat Monitoring; Complete Time: 04:52 09/10 06:15 Order name: EKG Electrocardiogram [facility] 09/10 06:15 Order name: EKG Electrocardiogram [facility] EC:01 Rate is 81 beats/min. Rhythm is regular. OH interval is prolonged. QRS interval is gs normal. QT interval is prolonged. T waves are Flattened. Clinical impression: Abnormal EKG without significant change and no change 01/14/18, very prolonged pr. Interpreted by me. Administered Medications: 05:05 Drug: Albuterol 2.5 mg Route: Inhalation; ao 05:05 Drug: AtroVENT Aerosol 0.5 mg Route: Inhalation; ao 05:07 Drug: Lasix 20 mg Route: IVP; Site: left antecubital; ao 06:23 Follow up: Response: No adverse reaction ao 07:31 Drug: Aspirin Chewable Tablet 324 mg Route: PO; sv 07:33 Follow up: Response: No adverse reaction sv Disposition: 09/10/18 06:08 Hospitalization ordered by Marcela Cohen for Inpatient Admission. Preliminary diagnosis is Systolic (congestive) heart failure. - Bed requested for Telemetry/MedSurg (Inpatient). - Status is Inpatient Admission. sv - Condition is Stable. - Problem is new. - Symptoms have improved. UTI on Admission? No Signatures: Dispatcher [employer] Evy iLng RN CATHI Nan Mckeon RN RN Celsa Kahn, RN RN Sharif Coello PA PA cp Ortiz, Alex, RN RN ao Starr, Gregory, MD MD Corrections: (The following items were deleted from the chart) 06:13 06:08 Hospitalization Ordered by Marcela Cohen MD for Inpatient Admission. Preliminary mw diagnosis is Systolic (congestive) heart failure. Bed requested for Telemetry/MedSurg (Inpatient). Status is Inpatient Admission. Condition is Stable. Problem is new. Symptoms have improved. UTI on Admission? No. 06:42 06:01 Rate is 81 beats/min. Rhythm is regular. QRS interval is normal. QT interval is gs prolonged. T waves are Flattened. Clinical impression: Abnormal EKG without significant change. Interpreted by me. 08:05 06:13 09/10/2018 06:08 Hospitalization Ordered by Marcela Cohen MD for Inpatient sv Admission. Preliminary diagnosis is Systolic (congestive) heart failure. Bed requested for Telemetry/MedSurg (Inpatient). Status is Inpatient Admission. Condition is Stable. Problem is new. Symptoms have improved. UTI on Admission? No.
[2018-09-10] MEDS ORDERED: CEFEPIME 1 GM/100 ML BAG IV ONE (06:52)
[2018-09-10 07:15] LABS: Albumin 3.5 g/dL (3.4-5.0); Bilirubin Direct 0.2 mg/dL (0-0.2); Bilirubin Total 0.6 mg/dL (0.2-1.0); Potassium 4.2 mmol/L (3.5-5.1); Protein, Total 7.3 g/dL (6.4-8.2); Troponin (Emerg Dept Use Only) 0.08 ng/mL (0.0-0.045)
[2018-09-10 07:24] LABS: Magnesium 1.5 mg/dL (1.8-2.4)
[2018-09-10] MEDS ORDERED: ASPIRIN 81 MG CHEWABLE TABLET ONE (07:35)
--- NOTE | 2018-09-10 08:29 | RAD REPORT ---
EXAM DESCRIPTION: RAD - Chest Single View - 09/10/2018 5:02 am CLINICAL HISTORY: SOB Chest pain. COMPARISON: Abdomen Acute Series dated 07/13/2018; Chest Single View dated 01/14/2018; CHEST SINGLE EW dated 10/19/2012 FINDINGS: Portable technique limits examination quality. Mild bilateral pulmonary opacities are present, likely representing pulmonary edema. Small pleural ef fusions also present. The heart is upper limit normal size. No displaced fractures. IMPRESSION: Mild CHF versus volume overload pattern.
--- NOTE | 2018-09-10 08:43 | P.HP ---
Certification for Inpatient Patient admitted to: Inpatient With expected LOS: >2 Midnights Patient will require the following post-hospital care: None Practitioner: I am a practitioner with admitting privileges, knowledge of patient current condition, hospital course, and medical plan of care. Services: Services provided to patient in accordance with Admission requirements found in Title 42 Section 412.3 of the Code of Federal Regulations Patient History Date of Service: 09/10/18 Reason for admission: Patient with dyspnea History of Present Illness: Patient is a 78-year-old female came to the hospital with difficulty breathing. Patient has shortness of breath. Patient states she has been feeling poorly for a last few days. Her respiratory status has gradually worsened. She came into the emergency room for further evaluation. In the emergency room patient' s workup revealed congestive heart failure. Patient was admitted to the hospital for further workup. Patient denies any orthopnea or PND. Patient has multiple risk factors including hypertension and diabetes. Patient's EKGs had shown a first-degree AV block. Patient has also had chest x-ray with cardiomegaly. Patient's last carotid Doppler also revealed carotid artery stenosis. Patient will get further workup at this time. Allergies No Known Allergies Allergy (Verified 02/07/16 11:56) Home Medications: Amlodipine Besylate 10 mg PO DAILY 09/08/15 Aspirin [Aspirin EC 81 MG] 1 tab PO DAILY 09/08/15 Gabapentin 300 mg PO TID 09/08/15 Isosorbide Toombs [Imdur*] 1 tab PO DAILY 09/08/15 Metformin HCl 1,000 mg PO BID 09/08/15 Metoprolol Tartrate 100 mg PO BID 09/08/15 Simvastatin 20 mg PO BEDTIME 09/08/15 Solifenacin [Vesicare*] 5 mg PO DAILY 09/08/15 Hum Insulin NPH/Reg Insulin Hm [Humulin 70-30 Vial] 20 units SQ BEDTIME Docusate [Colace Cap*] 100 mg PO BID #60 cap 09/10/15 Cyanocobalamin [Vitamin B-12*] 1,000 mcg PO DAILY 02/07/16 Insulin NPH Hum/Reg Insulin Hm [Humulin 70/30 Kwikpen] 20 unit SQ DAILY AT SUPPER 02/07/16 Insulin NPH Hum/Reg Insulin Hm [Humulin 70/30 Kwikpen] 32 unit SQ DAILY WITH BREAKFAST 02/07/16 - Past Medical/Surgical History Diabetic: Yes -: IDDM -: HTN -: HIGH CHOLESTEROL -: CVA -: HYSTERECTOMY - Social History Alcohol use: No CD- Drugs: No Caffeine use: No Physical Examination - Vital Signs Temperature: 97 F Blood Pressure: 150/70 Pulse: 73 Respirations: 23 - Physical Exam General: Alert, In no apparent distress, Oriented x3 HEENT: Atraumatic, Normocephalic Neck: Supple, 2+ carotid pulse no bruit, JVD not distended, No Thyromegaly, Bruit Respiratory: Clear to auscultation bilaterally, Normal air movement Cardiovascular: Regular rate/rhythm, Normal S1 S2, Systolic murmur Gastrointestinal: Normal bowel sounds, Hypoactive, Soft and benign, Non- distended, W/out succussion splash Musculoskeletal: No clubbing, No swelling, No erythema Neurological: Normal gait, Normal speech, Normal tone, Sensation intact, Cranial nerves 3-12 intact, Normal reflexes 2+, Abnormal strength - Studies Laboratory Data (last 24 hrs) 09/10/18 05:05: PT 12.1, INR 1.03 09/10/18 05:05: WBC 9.1, Hgb 13.1, Hct 40.2, Plt Count 188 09/10/18 05:05: Sodium 143, Potassium 4.2, BUN 14, Creatinine 1.10, Glucose 156 H, Magnesium 1.5 L, Total Bilirubin 0.6, AST 63 H, ALT 50, Alkaline Phosphatase 64 Assessment & Plan - Problems (Diagnosis) (1) Shortness of breath Current Visit: Yes Status: Acute (2) Systolic CHF, acute Current Visit: Yes Status: Acute (3) Hypertension Current Visit: Yes Status: Acute (4) Diabetes type 2 with atherosclerosis of arteries of extremities Current Visit: Yes Status: Acute (5) Carotid artery disease Current Visit: Yes Status: Acute - Plan 1. Echocardiogram 2. Start medication for heart failure including angiotensin receptor sony and beta-sony therapy 3. Carotid artery Doppler 4. Cardiology consultation 5. Aggressive diuresis 6. Strict I's and O's 7. Repeat CXR 8. Daily weights 9. Education regarding diet and treatment of congestive heart failure Discharge Plan: Home Plan to discharge in: Greater than 2 days - Advance Directives Does patient have a Living Will: No Does patient have a Durable POA for Healthcare: No - Code Status/Comfort Care Code Status Assessed: Yes Code Status: Full Code Critical Care: No Time Spent Managing PTS Care (In Minutes): 55
[2018-09-10] MEDS: NPH (HUMAN) 100 UNITS/ML INSULIN SQ SCH (08:50)
[2018-09-10] MEDS: FUROSEMIDE 40 MG/4 ML VIAL IV SCH ×2 (08:51→16:17)
[2018-09-10] MEDS: ASPIRIN EC 81 MG TAB PO SCH ×2 (08:53→09:00)
[2018-09-10] MEDS: ENOXAPARIN 40 MG/0.4 ML SQ SCH (08:53)
[2018-09-10] MEDS: METOPROLOL TAR 50 MG TAB PO SCH ×2 (08:53→19:59)
[2018-09-10] MEDS: ISOSORBIDE MONO SR 30 MG TAB PO SCH (08:53)
--- NOTE | 2018-09-10 10:45 | RAD REPORT ---
EXAM DESCRIPTION: US - CP - 09/10/2018 10:07 am CLINICAL HISTORY: carotid artery stenosis COMPARISON: Carotid Artery Bilateral dated 12/27/2016 TECHNIQUE: Real-time sonographic evaluation of both carotid systems was performed. Doppler interroga tion was performed with waveform tracing bilaterally. FINDINGS: There is advanced atherosclerotic plaquing in both proximal internal carotid arteries and carotid artery bulbs. There is turbulent flow with significant elevated peak systolic velocity involving the right carotid bulb measuring 304 cm/second. Right ICA to CCA ratio is 3.2. Marked atherosclerotic plaquing is seen involving the left carotid bulb within elevated peak systolic velocity 304 cm/second. No flow is seen distal to the left internal carotid bulb compatible with jade pected occlusion. The left vertebral artery is poorly seen. The right vertebral artery shows forward flow. IMPRESSION: Suspected occlusion of the left internal carotid artery distal to the left carotid bulb. Significant stenosis involving the right carotid bulb suspected estimated at 90-95%. If further assessment is clinically desired, CTA or MRA would be useful.
[2018-09-10] MEDS ORDERED: Magnesium Sulfate 2gm IVPB 2 G/50 ML BAG IV ONE (11:00)
[2018-09-10] MEDS ORDERED: PNEUMOCOCCAL VACCINE 0.5 ML IMVAC ONE (12:00)
[2018-09-10] MEDS ORDERED: INFLUENZA VACCINE (for 3y+) 0.5 ML DOSE IMVAC ONE (12:00)
--- NOTE | 2018-09-10 12:29 | ECHO ---
HEIGHT: 5 ft 6 in WEIGHT: 189 lb 15.91 oz DATE OF STUDY: 09/10/[address]: Marcela Cohen MD 2-DIMENSIONAL: YES M.MODE: YES DOPPLER: YES COLOR FLOW: YES TDS: NO PORTABLE: NO DEFINITY: NO BUBBLE STUDY: NO DIAGNOSIS: CONGESTIVE HEART FAILURE CARDIAC HISTORY: CATHERIZATION: NO SURGERY: NO PROSTHETIC VALVE: NO PACEMAKER: NO MEASUREMENTS (cm) DIASTOLIC (NORMALS) SYSTOLIC (NORMALS) IVSd 1.3 (0.6-1.2) LA Diam 2.8 (1.9-4.0) LVEF 30-35% LVIDd 4.1 (3.5-5.7) LVIDs 2.8 (2.0-3.5) %FS % LVPWd 1.3 (0.6-1.2) Ao Diam 3.0 (2.0-3.7) 2 DIMENSIONAL ASSESSMENT: RIGHT ATRIUM: NORMAL LEFT ATRIUM: NORMAL RIGHT VENTRICLE: NORMAL LEFT VENTRICLE: NORMAL TRICUSPID VALVE: NORMAL MITRAL VALVE: NORMAL PULMONIC VALVE: NORMAL AORTIC VALVE: NORMAL PERICARDIAL EFFUSION: NONE AORTIC ROOT: NORMAL LEFT VENTRICULAR WALL MOTION: ANTEROAPICAL AKINESIS. DOPPLER/COLOR FLOW: MILD TRICUSPID AND AORTIC REGURGITATION. COMMENTS: ANTEROAPICAL AKINESIS. LEFT VENTRICULAR EJECTION FRACTION 30-35%. MILD TRICUSPID AND AORTIC REGURGITATION. TECHNOLOGIST: Magnolia PHILLIPS
--- NOTE | 2018-09-10 12:35 | EKG ---
Test Date: 2018-09-10 Test Time: 04:54:13 Condominium Property Manager: CARLOS MEASUREMENT RESULTS: Intervals: Rate: 81 [place]: QRSD: 68 QT: 418 QTc: 485 [place]: P: [place]: QRS: 2 T: 47 INTERPRETIVE STATEMENTS: Accelerated Junctional rhythm Prolonged QT Abnormal ECG Compared to ECG 01/14/2018 12:02:40 Accelerated junctional rhythm now present Prolonged QT interval now present Sinus rhythm no longer present First degree AV block no longer present Electronically Signed On 09-10-18 12:33:11 CDT by Erick Pedersen
[2018-09-10] MEDS: SPIRONOLACTONE 25 MG TABLET PO SCH (14:02)
[2018-09-10 14:37] LABS: Urine Appearance CLEAR; Urine Bilirubin NEGATIVE (NEG); Urine Blood NEGATIVE (NEG); Urine Color YELLOW; Urine Glucose NEGATIVE (NEG); Urine Protein NEGATIVE (NEG); Urine Specific Gravity <=1.005 (1.005-1.030); Urine Urobilinogen 0.2 mg/dL (0.2-1.0); Urine pH 5.5 (5.0-7.0)
[2018-09-10 14:38] LABS: Urine Microscopic Reflex NO UMIC
[2018-09-10] MEDS ORDERED: NPH (HUMAN) 100 UNITS/ML INSULIN SQ SCH (17:00)
--- NOTE | 2018-09-10 17:42 | PN ---
Date of Progress Note: 09/10/2018 Subjective: The patient seen and examined. Chart reviewed and case discussed with RN. The patient states her shortness of breath has been improved as has her lower extremity swelling. Review of Systems: Negative except as above. Medications: List reviewed. Code Status: Full. Physical Examination: Vital Signs: Temperature 98.4, heart rate 70, blood pressure 132/65, respirations 18, O2 94% on room air. General: Awake, alert, oriented x3, in some mild distress. Elderly female, obese, ill-appearing. CV: S1, S2. Regular rate and rhythm. Peripheral pulses present. Respiratory: Diminished breath sounds at the bases. No wheezing or stridor. No use of accessory mu scles. Gastrointestinal: Abdomen is soft, nontender, nondistended. Positive bowel sounds. Extremities: No clubbing or cyanosis. Trace pedal edema. Neurologic: Nonfocal. Laboratory Data: Sodium 142, potassium 4.2, chloride 109, CO2 24, BUN 14, creatinine 1.1, glucose 15 6, magnesium 1.5. Troponin 0.08. Repeat troponin level 0.5. BNP 1437. WBC 9.1, H and H 15.1 and 4 0.2, platelet 188. Blood cultures pending. Echocardiogram shows EF of 30-35%. Anterior apical steven esis, mild tricuspid and aortic regurgitation. Assessment And Plan: A 78-year-old female with: 1.Acute systolic congestive heart failure, ejection fraction is 30-35%. Echocardiogram does show so me apical akinesis. We will continue with beta-sony, BISI inhibitor, and diuretics. Monitor I's a nd O's, and continue fluid-restricted diet. 2.Obesity, BMI 30. 3.Hypomagnesemia. Replace and monitor. 4.Shortness of breath secondary to congestive heart failure, improving. 5.Essential hypertension, stable. 6.Diabetes mellitus type 2 with hyperglycemia with long-term use of insulin. 7.Carotid artery disease. Plan: Continue with diuretics. Rest of the plan as above. SA/MODL Voice ID: [id number] Report ID: [id number]
[2018-09-10 19:42] LABS: Magnesium 1.8 mg/dL (1.8-2.4)
[2018-09-10 19:48] LABS: Troponin I 0.55 ng/mL (0.0-0.045)
[2018-09-10] MEDS ORDERED: MAGNESIUM SULFATE 1 gm IVPB 1 GM/100 ML BAG IV ONE (20:50)
[2018-09-11 04:36] LABS: Absolute Lymphocytes (CBC) 1.5 K/uL (0.7-4.9); Absolute Monocytes 0.4 K/uL (0.1-1.3); Absolute Neutrophil 3.2 K/uL (1.8-8.0); Basophils % 0.9 % (0-1.3); Eosinophils % 1.5 % (0-4.4); MCH 33.5 pg (27.0-35.0); MCV 101.5 fL (80-100); Monocytes % 8.3 % (3.3-12.3); RBC Red Blood Cell Count 3.85 M/uL (3.86-4.86)
[2018-09-11 04:53] LABS: Albumin 3.4 g/dL (3.4-5.0); Bilirubin Total 0.6 mg/dL (0.2-1.0); Magnesium 2.1 mg/dL (1.8-2.4); Potassium 3.5 mmol/L (3.5-5.1); Protein, Total 7.1 g/dL (6.4-8.2)
[2018-09-11] MEDS ORDERED: POTASSIUM 25 MEQ EFFERV TAB PO ONE (04:57)
[2018-09-11 05:52] VITALS: BMI 25.2
--- NOTE | 2018-09-11 07:01 | P.PN ---
Date of Service: 09/11/18 Called by nurse overnight as patient was resting comfortably but telemetry strips indicated a first-degree AV block. This was confirmed by EKG however patient also had a second-degree Mobitz type 1 that she wanted to just briefly. Will continue to monitor on telemetry. Cardiology to follow in the morning as well.
--- NOTE | 2018-09-11 07:24 | CON ---
Date of Consultation: 09/10/2018 Reason For Consultation: Congestive heart failure. History Of Present Illness: Ms. Leiva is a 78-year-old black woman, who has a history of chronic diarrhea, has a history of CVA in the past, diabetes, hypertension, and dyslipidemia. She came in wi th shortness of breath. Chest x-ray showed congestive heart failure. Denied chest pain, nausea, vom iting, diaphoresis. She did not have any PND or orthopnea. Denied palpitations or syncope, but did have some edema when she came in. She was hypertensive when she came in at 188/89 that has improved. The patient denied any previous cardiac history. Past Medical History: As stated above. Allergies: NONE. Review of Systems: Negative. Social History: Negative for tobacco, alcohol, and drug use. Family History: Positive for hypertension and diabetes. Medications: At home include insulin, Imdur, metoprolol, metformin, aspirin, Norvasc, Neurontin, Zoc or, and VESIcare. Physical Examination: General: By the time I saw her, she had diuresed well and is feeling better. No complaint. No acut e distress. Normal sinus rhythm, afebrile. HEENT: Negative, Neck: Supple without any bruit, lymphadenopathy, JVD, or thyromegaly. Chest: Reveals some rales at both bases. Cardiac: Revealed a regular rhythm and rate with an S3 gallops. No murmurs or rubs. Abdomen: Benign. Extremities: Revealed trace edema. Laboratory Data: Her troponin was 0.08. Her BNP was 1437. Impression And Plan: 1.New-onset congestive heart failure, possibly systolic. Elevated BNP and troponin. We will get a 2D echocardiogram. The patient is already asymptomatic and has diuresed well. We will see what the echocardiogram shows prior to making final decisions. 2.History of chronic diarrhea. 3.History of cerebrovascular accident. 4.Diabetes. 5.Hypertension, poorly controlled. 6.Dyslipidemia. Ms. Leiva presently does not have any primary care physician and she will need 1 when she goes trish e. She will also need to follow up with us for further outpatient workup. I think she will eventual ly need to have a stress test to evaluate her coronary anatomy. I will discuss the case further with Dr. Cohen. She is on beta-blockers and Norvasc, but she may need an BISI inhibitor to help with her b lood pressure and protect her kidneys from her diabetes and maybe good for her congestive heart failu re as well. She should probably also be on Lasix when she goes home. MACY Voice ID: [id number] Report ID: [id number]
[2018-09-11] MEDS: NPH (HUMAN) 100 UNITS/ML INSULIN SQ SCH (08:00)
[2018-09-11] MEDS: FUROSEMIDE 40 MG/4 ML VIAL IV SCH (08:17)
[2018-09-11] MEDS: ENOXAPARIN 40 MG/0.4 ML SQ SCH (08:18)
[2018-09-11] MEDS: SPIRONOLACTONE 25 MG TABLET PO SCH (08:18)
[2018-09-11] MEDS: ISOSORBIDE MONO SR 30 MG TAB PO SCH (08:18)
[2018-09-11] MEDS: METOPROLOL TAR 50 MG TAB PO SCH (08:18)
[2018-09-11] MEDS: ASPIRIN EC 81 MG TAB PO SCH (08:19)
[2018-09-11 09:06] VITALS: O2SAT 98
--- NOTE | 2018-09-11 10:34 | EKG ---
Test Date: 2018-09-11 Test Time: 02:30:14 Flat Breakdown Processor: RT MEASUREMENT RESULTS: Intervals: Rate: 63 OH: 314 QRSD: 72 QT: 528 QTc: 540 [place]: P: 79 OH: 314 QRS: -26 T: 247 INTERPRETIVE STATEMENTS: Sinus rhythm with 1st degree AV block ST & T wave abnormality, non specific Prolonged QT Abnormal ECG Compared to ECG 09/10/2018 04:54:13 First degree AV block now present ST (T wave) deviation now present Electronically Signed On 09-11-18 10:34:23 CDT by Myles Sood
[2018-09-11] MEDS ORDERED: POLYETHYL GLY 3350 17 GM/DOSE PO PRN (10:53)
[2018-09-11 13:06] VITALS: BP 108/59; TEMP 97.6
[2018-09-11] MEDS ORDERED: ATORVASTATIN 40 MG TAB PO SCH (21:00)
[2018-09-11] MEDS ORDERED: SOLIFENACIN SUCCIN 5 MG TAB PO SCH (21:00)
[2018-09-11] MEDS ORDERED: TRAZODONE 50 MG TABLET PO SCH (21:00)
--- NOTE | 2018-09-12 06:03 | DS ---
Date of Discharge: 09/11/2018 Solar Sales Assessor: Dr. Pedersen with Cardiology. Admitting Diagnoses: 1.Shortness of breath. 2.Acute new-onset systolic congestive heart failure. 3.Essential hypertension. 4.Diabetes mellitus type 2 with hyperglycemia with long-term use of insulin. 5.Carotid artery disease. Discharge Diagnoses: 1.Acute systolic congestive heart failure, new onset, ejection fraction 30% to 35%, improved. 2.Obesity, body mass index 30. 3.Hypomagnesemia, replaced. 4.Shortness of breath secondary to above, improved. 5.Essential hypertension, stable. 6.Diabetes mellitus type 2 with hyperglycemia and long-term use of insulin. 7.Carotid artery disease. 8.Dyslipidemia. 9.History of chronic diarrhea. 10.First-degree atrioventricular block. Hospital Course: The patient is a 78-year-old female who was admitted to the hospital with shortness of breath. The patient was found to have pulmonary edema. The patient's x-ray also showed some car diomegaly. Her BNP was elevated. She also had some troponin elevation, which was likely due to the congestive heart failure. The patient was seen by rock wool insulator, Dr. Pedersen. CHF guidelines were in itiated. The patient had diuresed well. Her shortness of breath improved. Her edema resolved. Her magnesium was replaced. She was recommended to have outpatient workup including stress test and pos sible catheterization done as an outpatient. Echocardiogram was also done, showed depressed ejection fraction of 30% to 35%. I spoke with Dr. Sood. The patient is okay to follow up as an outpatient . She did have some arrhythmia which is first-degree AV block. She will need outpatient workup incl uding stress test once her CHF is more stable. The patient otherwise was doing well. She did not mcghee ve any further symptoms of shortness of breath. She was then discharged in a stable condition. Activity: Fall precautions. Use assistive ambulatory device. Diet: Diabetic diet. Followup: Follow up with rock wool insulator, Dr. Pedersen, in 1 to 2 weeks. Return to ER for worsening con dition. Establish care with PCP in 2 to 3 days. Medications: As per medication reconciliation list. Physical Examination: General: Awake, alert, and oriented x3. No acute distress. Elderly female. CV: S1, S2. No murmurs. Respiratory: Moving air well bilaterally. Abdomen: Abdomen is soft, nontender, and nondistended. Positive bowel sounds. Extremities: No clubbing, cyanosis, or edema. Neurologic: Nonfocal. SA/MODL Voice ID: [id number] Report ID: [id number]
[2018-09-12] MEDS ORDERED: metroNIDAZOLE 500 MG TABLET PO SCH (09:00)
== END 2018-09-11 13:30 | disposition home or self-care (01) ==
LOC: ER 04:24 → ERHOLD 06:10 → INTOOBSV 06:10 → 4TH 07:46
PROVIDERS: ADMIT Hospitalist; ATTEND Hospitalist
DX: I11.0 Hypertensive heart disease with heart failure (principal); I50.21 Acute systolic (congestive) heart failure; E66.9 Obesity, unspecified; Z68.25 Body mass index [BMI] 25.0-25.9, adult; E83.42 Hypomagnesemia; E11.65 Type 2 diabetes mellitus with hyperglycemia; Z79.4 Long term (current) use of insulin; I77.89 Other specified disorders of arteries and arterioles; E78.5 Hyperlipidemia, unspecified; I44.0 Atrioventricular block, first degree; Z86.73 Personal history of transient ischemic attack (TIA), and cerebral infarction without residual deficits; Z23 Encounter for immunization
CPT/HCPCS: 36415; 71045; 80048; 80053; 80076; 81003; 82962 ×4; 83735 ×3; 83880 ×2; 84100; 84484 ×3; 85025 ×2; 85610; 87040 ×2; 93005 ×2; 93306; 93880; 96374; 99285; G0008; G0378 ×2; J0692; J1650 ×2; J1940; J3475 ×2; Q2035; 90670

== ENCOUNTER 2018-10-22 07:00 | Day surgery (SDC) | payer OTHER ==
--- NOTE | 2018-10-10 14:34 | RAD REPORT ---
EXAM DESCRIPTION: RAD - Chest Pa And Lat (2 Views) - 10/10/2018 2:29 pm CLINICAL HISTORY: preop Chest pain. COMPARISON: Chest Single View dated 09/10/2018; Abdomen Acute Series dated 07/13/2018; Chest Single V iew dated 01/14/2018; CHEST SINGLE VIEW dated 10/19/2012 FINDINGS: The lungs are mildly emphysematous but clear. The heart is upper limit normal size. No dis placed fractures. Aortic atherosclerosis. IMPRESSION: Mild COPD.
[2018-10-10 15:20] LABS: Absolute Lymphocytes (CBC) 1.8 K/uL (0.7-4.9); Absolute Monocytes 0.3 K/uL (0.1-1.3); Absolute Neutrophil 3.3 K/uL (1.8-8.0); Basophils % 0.6 % (0-1.3); Eosinophils % 1.5 % (0-4.4); Hematocrit 38.2 % (36.0-45.0); Lymphocytes % 32.3 % (15.3-44.8); MCH 35.3 pg (27.0-35.0); MCV 100.8 fL (80-100); MPV 10.9 fL (7.6-11.3); Monocytes % 5.5 % (3.3-12.3); RBC Red Blood Cell Count 3.79 M/uL (3.86-4.86)
[2018-10-10 15:29] LABS: Protime INR 1.1
[2018-10-10 15:56] LABS: Potassium 4.3 mmol/L (3.5-5.1)
--- NOTE | 2018-10-10 17:11 | EKG ---
Test Date: 2018-10-10 Test Time: 13:39:05 Electrophysiology Scientist: GAVIN MEASUREMENT RESULTS: Intervals: Rate: 57 NE: 430 QRSD: 66 QT: 452 QTc: 439 [place]: P: 56 NE: 430 QRS: -4 T: 78 INTERPRETIVE STATEMENTS: Sinus bradycardia with 1st degree AV block Otherwise normal ECG Compared to ECG 10/10/2018 13:38:17 T-wave abnormality no longer present Electronically Signed On 10-10-18 17:10:17 CLOTH FINISHER by Myles Sood
[2018-10-22] MEDS ORDERED: NA CHLORIDE 0.9% 500 ML ONE (07:52)
[2018-10-22] MEDS ORDERED: ATROPINE SULF 1 MG/10 ML SYR IV ONE (09:24)
[2018-10-22] MEDS ORDERED: NA CHLORIDE 0.9% 0 ML ONE (09:24)
[2018-10-22] MEDS ORDERED: FENTANYL CITR 100 MCG/2 ML ONE ×2 (10:04→10:17)
[2018-10-22] MEDS ORDERED: MIDAZOLAM HCL 2 MG/2 ML INJ ONE ×3 (10:04→10:16)
[2018-10-22 12:31] VITALS: O2SAT 100
[2018-10-22 15:06] VITALS: BP 160/90; TEMP 98.9
--- NOTE | 2018-10-23 05:08 | OP ---
Surgeon: Erick Pedersen MD Wallcovering Hanger: Hadley Chaudhry. Procedure: The patient admitted to myself as an outpatient for a left heart catheterization and holder tid angiography. Indication: Unstable angina and documented cerebrovascular disease by carotid Doppler. Description Of Procedure: Ms. Leiva is a 78-year-old. She was brought to the tutorial laboratory supervisor as an outp atient. She received 4 mg of Versed for IV sedation and 50 mcg of fentanyl. She is status post aort obifemoral surgery. A 6-Slovenian sheath was introduced in the right common femoral artery and the bypa ss graft itself. Angiography was done with Mela catheter. She was found to have a very large ect atic LAD with about 70 to 80% proximal stenosis just after the first diagonal. She had a subtotal ci rcumflex and a total RCA with collaterals from the LAD to both of those vessels. She appeared to be more left dominant. Carotid angiography was done with a JR4 6-Slovenian catheter and she was found to h ave a total occlusion of her left carotid internal and external. She was found to have a 90% right c arotid bulb stenosis. Left ventriculogram was normal with LVH and ejection fraction about 70%. The patient had an angiography of the graft and the right common femoral area was normal. Pressure was u sed to obtain hemostasis after the case. Total conscious sedation was 45 minutes. Complications wer e none and blood loss was 10 cc. Plater Hot Dip: Erick Pedersen M.D. Final Diagnoses: Severe cerebrovascular disease with a 90% right carotid stenosis, 100% left carotid stenosis. Severe coronary artery disease with 100% occlusion of the circumflex and RCA with collate rals from an LAD with 70% stenosis in it. Plan: The plan is to send Ms. Leiva to [facility] for possible bypass surgery as well as an endarter ectomy of the right carotid versus carotid stent. I would let the surgeon make that decision. I dis cussed the case with the family. They will come to see me in the office on Sunday. We will discuss the risks of the surgery and the benefits and we will proceed from there. SORAYA/RENE Voice ID: [id number] Report ID: [id number]
== END 2018-10-22 15:01 | disposition home or self-care (01) ==
LOC: CCL 07:00
DX: I25.110 Atherosclerotic heart disease of native coronary artery with unstable angina pectoris (principal); I25.82 Chronic total occlusion of coronary artery; I65.23 Occlusion and stenosis of bilateral carotid arteries; I11.0 Hypertensive heart disease with heart failure; I50.21 Acute systolic (congestive) heart failure; E78.6 Lipoprotein deficiency; E11.9 Type 2 diabetes mellitus without complications; Z86.73 Personal history of transient ischemic attack (TIA), and cerebral infarction without residual deficits; Z87.891 Personal history of nicotine dependence
CPT/HCPCS: 36222; 36415; 71046; 80048; 82962 ×2; 85025; 85610; 85730; 93005; 93458; C1893; J2250 ×2; J3010; J0583

== ENCOUNTER 2018-11-11 13:15 | Emergency (ER) | payer OTHER ==
--- OUTSIDE RECORDS SUMMARY | 2018-11-11 13:17 | XMS REPORT | Clinical Summary ---
:1940 Author Organization [facility] Address [address] [place] [address] Care Team Providers Name Role Phone Unavailable Primary Care Provider Unavailable Allergies No Known Allergies Medications Medication Sig Dispensed Refills Start Date End Date Status aspirin 81 MG EC tablet Take 81 mg by 0 Active mouth daily. atorvastatin (LIPITOR) Take 40 mg by 0 10/01/2018 Active 40 MG tablet mouth daily. furosemide (LASIX) 20 MG Take 20 mg by 0 09/11/2018 Active tablet mouth daily. HUMULIN 70/30 U-100 INJECT 32 UNITS 0 08/29/2018 Active INSULIN 100 unit/mL UNDER THE SKIN (70-30) injection EVERY MORNING AND 20 UNITS EVERY EVENING isosorbide dinitrate Take 30 mg by 0 09/12/2018 Active (ISORDIL) 30 MG tablet mouth daily. lisinopril Take 10 mg by 0 09/11/2018 Active (PRINIVIL,ZESTRIL) 10 MG mouth daily. tablet metoprolol (LOPRESSOR) Take 100 mg by 0 08/31/2018 Active 100 MG tablet mouth 2 (two) times daily. metFORMIN Take 1,000 mg by 0 08/31/2018 Active (GLUCOPHAGE-XR) 500 MG mouth 2 (two) 24 hr tablet times daily. VESICARE 5 mg tablet Take 5 mg by 0 09/11/2018 Active mouth daily. spironolactone Take 25 mg by 0 09/11/2018 Active (ALDACTONE) 25 MG tablet mouth daily. traZODone (DESYREL) 50 Take 50 mg by 0 10/21/2018 Active MG tablet mouth every night as needed. Active Problems Problem Noted Date Carotid artery occlusion Coronary artery disease Stroke Hypertension Hyperlipidemia Encounters Date Type Specialty Care Team Description 11/04/2018 Office Visit Cardiology Geo Farfan Occlusion of right carotid artery; MD [facility] Coronary artery disease involving atka coronary artery of atka heart without angina pectoris; Cerebrovascular accident (CVA), unspecified mechanism (HCC); Essential hypertension; Pure hypercholesterolemia after 11/10/2017 Family History Medical History Relation Name Comments Breast cancer Mother Relation Name Status Comments Mother Social History Tobacco Use Types Packs/Day Years Used Date Former Smoker 1 Quit: 2018 Smokeless Tobacco: Never Used Alcohol Use Drinks/Week oz/Week Comments Yes moderately Alcohol Habits Answer Date Recorded How often do you have a drink containing alcohol? Never 11/04/2018 How many drinks containing alcohol do you have on a typical Not asked day when you are drinking? How often do you have six or more drinks on one occasion? Not asked Sex Assigned at Date Recorded Not on file Job Start Date Occupation Industry Not on file Not on file Not on file Travel History Travel Start Travel End No recent travel history available. Last Filed Vital Signs Vital Sign Reading Time Taken Blood Pressure 191/78 11/04/2018 11:06 AM GAS WORKER Pulse 52 11/04/2018 11:06 AM GAS WORKER Temperature 36.6 C (97.9 F) 11/04/2018 11:06 AM GAS WORKER Respiratory Rate 18 11/04/2018 11:06 AM GAS WORKER Oxygen Saturation 96% 11/04/2018 11:06 AM GAS WORKER Inhaled Oxygen Concentration - - Weight 73.9 kg (162 lb 14.4 oz) 11/04/2018 11:06 AM GAS WORKER Height 180.3 cm (5' 11") 11/04/2018 11:06 AM GAS WORKER Body Mass Index 22.72 11/04/2018 11:06 AM GAS WORKER Plan of Treatment Date Type Specialty Care Team Description 11/28/2018 Hospital Encounter Geo Farfan MD [phone] [place], [place] [id number] 11/28/2018 Surgery Geo Farfan ENDARTERECTOMY,CAROTID MD [facility] [phone] [place], [place] [address] Results Not on fileafter 11/10/2017 Insurance Payer Benefit Plan / Group Subscriber ID Type Phone Address CARE IM[employer]OVEMENT MEDICARE MGD CARE IMPROVEMENT PLUS xxxxxxxxx CARE
[2018-11-11 13:54] LABS: Absolute Lymphocytes (CBC) 1.4 K/uL (0.7-4.9); Absolute Monocytes 0.3 K/uL (0.1-1.3); Absolute Neutrophil 4.3 K/uL (1.8-8.0); Basophils % 0.6 % (0-1.3); Eosinophils % 1.6 % (0-4.4); Hematocrit 38.6 % (36.0-45.0); Lymphocytes % 23.2 % (15.3-44.8); MCH 34.3 pg (27.0-35.0); MCV 101.8 fL (80-100); MPV 10.7 fL (7.6-11.3); Monocytes % 5.2 % (3.3-12.3); RBC Red Blood Cell Count 3.79 M/uL (3.86-4.86)
[2018-11-11 13:57] LABS: Protime INR 1.13
[2018-11-11 14:39] LABS: BUN Blood Urea Nitrogen 17 mg/dL (7-18); Bicarbonate 24 mmol/L (21-32); Glucose Level 137 mg/dL (74-106); Potassium 4.5 mmol/L (3.5-5.1); Sodium Level 141 mmol/L (136-145); Troponin (Emerg Dept Use Only) < 0.02 ng/mL (0.0-0.045)
--- NOTE | 2018-11-11 15:12 | RAD REPORT ---
EXAM DESCRIPTION: RAD - Chest Single View - 11/11/2018 1:49 pm CLINICAL HISTORY: Shortness of breath, syncope COMPARISON: October 10, 2018 TECHNIQUE: AP portable chest image was obtained 1337 hours . FINDINGS: Lungs are clear. Lungs are fibrotic as a baseline. Pattern is not substantially different from comparison imaging. No focal consolidation or mass. No measurable pleural effusion and no pneumo thorax. No acute bony abnormality seen. No acute aortic findings suspected. IMPRESSION: Fibrotic lung pattern not substantially different from comparison. No acute finding.
[2018-11-11 15:30] LABS: Urine Amorphous Sediment 1+ /HPF (NONE SEEN); Urine Bacteria <20 /HPF (<20); Urine Culture Reflex Order REFLEXED; Urine RBC <5 /HPF (NONE SEEN)
--- NOTE | 2018-11-11 15:30 | EKG ---
Test Date: 2018-11-11 Test Time: 13:43:15 Tanning Wheel Filler: TORSTEN MEASUREMENT RESULTS: Intervals: Rate: 60 MO: 388 QRSD: 64 QT: 488 QTc: 488 [place]: P: 60 MO: 388 QRS: -23 T: 29 INTERPRETIVE STATEMENTS: Sinus rhythm with 1st degree AV block Possible Left atrial enlargement Left ventricular hypertrophy Abnormal ECG Compared to ECG 10/10/2018 13:39:05 Left ventricular hypertrophy now present Sinus bradycardia no longer present Electronically Signed On 11-11-18 15:30:13 BARREL LATHE OPERATOR INSIDE by Myles Sood
--- NOTE | 2018-11-11 15:35 | ER ---
Nurse's Notes [facility] Name: Estefani Leiva Age: 78 yrs Sex: Female : 1940 Arrival Date: 11/11/2018 Time: 13:23 Bed 23 Private MD: Diagnosis: Syncope and collapse;Benign paroxysmal vertigo Presentation: 11/11 13:25 Presenting complaint: Patient states: was out shopping, then started feeling weak, felt iw like she was going to pass out, felt nauseated, headache, felt SOB, has hx of chronic diarrhea, also c/o pain with urination. Transition of care: patient was not received from another setting of care. Onset of symptoms was November 11, 2018. Risk Assessment: Do you want to hurt yourself or someone else? Patient reports no desire to harm self or others. Initial Sepsis Screen: Does the patient meet any 2 criteria? No. Patient's initial sepsis screen is negative. Does the patient have a suspected source of infection? No. Patient's initial sepsis screen is negative. Care prior to arrival: Medication(s) given: Normal saline infusion, IV initiated. 18 GA, in the left antecubital area, Glucose check: 136 Oxygen administered. via nasal cannula. 13:25 Method Of Arrival: EMS: [facility] iw 13:25 Acuity: LEORA 3 iw Triage Assessment: 15:10 General: Appears in no apparent distress. Behavior is calm, cooperative. Pain: Denies ls4 pain. Historical: - Allergies: 13:41 NKA; iw - Home Meds: 13:41 atorvastatin 40 mg Oral tab 1 tab once daily [Active]; Humulin 70/30 100 unit/mL iw (70-30) Sub-Q susp 32 units in am and 20 units at night [Active]; isosorbide dinitrate 30 mg Oral tab 1 tab daily [Active]; metformin 1,000 mg Oral tr24 1 tab twice a day [Active]; metoprolol tartrate 100 mg Oral tab 1 tab 2 times per day [Active]; metronidazole 500 mg Oral tab 1 tab once daily [Active]; Miralax 17 gram/dose Oral powd once daily [Active]; trazodone 50 mg Oral tab 1 tab q hs prn [Active]; Vesicare 5 mg Oral tab 1 tab once daily [Active]; - PMHx: 13:41 chronic diarrhea; CVA; Diabetes - NIDDM; Hyperlipidemia; Hypertension; iw - PSHx: 13:41 Hysterectomy; iw - Immunization history:: Adult Immunizations. - Ebola Screening: : Patient negative for fever greater than or equal to 101.5 degrees Fahrenheit, and additional compatible Ebola Virus Disease symptoms Patient denies exposure to infectious person Patient denies travel to an Ebola-affected area in the 21 days before illness onset No symptoms or risks identified at this time. - Social history:: Smoking status: Patient/guardian denies using tobacco. Screenin:51 Abuse screen: Denies threats or abuse. Denies injuries from another. Nutritional iw screening: No deficits noted. Tuberculosis screening: No symptoms or risk factors identified. Fall Risk IV access (20 points). Assessment: 14:00 General: Behavior is calm, cooperative. Pain: Denies pain. Neuro: Level of iw Consciousness is awake, alert, obeys commands, Oriented to person, place, time, situation, Paralysis in right arm(s) Reports dizziness. Cardiovascular: Patient's skin is warm and dry. Respiratory: Respiratory effort is even, unlabored, Respiratory pattern is regular. GI: Reports diarrhea, nausea, Patient currently denies abdominal pain. : Reports burning with urination. Derm: Skin is intact, is healthy with good turgor. Musculoskeletal: Range of motion: intact in all extremities. Vital Signs: 13:27 BP 107 / 51; Pulse 58; Resp 16; Temp 97.7(A); Pulse Ox 96% on R/A; Weight 73.48 kg; iw Height 5 ft. 10 in. (177.80 cm); Pain 0/10; 15:09 BP 131 / 64; Pulse 76; Resp 16; Pulse Ox 100% on R/A; Pain 0/10; ls4 13:27 Body Mass Index 23.24 (73.48 kg, 177.80 cm) iw NIH Stroke Scale Scores: 15:25 NIHSS Score: 0 ED Course: 13:23 Patient arrived in ED. iw 13:24 Nader Santos MD is Attending Physician. gs 13:27 Triage completed. iw 13:27 Arm band placed on. iw 13:31 Fabiola Anderson, RN is Primary Nurse. iw 13:35 X-ray completed. Portable x-ray completed in exam room. Patient tolerated procedure ls3 well. 13:51 XRAY Chest (1 view) In Process Unspecified. EDMS 13:51 Maintain EMS IV. Dressing intact. Good blood return noted. Site clean \T\ dry. Gauge \T\ iw site: 18 LAC. 13:52 EKG done, by career technical education instructor. reviewed by Nader Santos MD. sm3 14:30 Urine collected: straight cath specimen, clear. iw 15:10 No provider procedures requiring assistance completed. ls4 15:34 Bed in low position. Call light in reach. Side rails up X 1. ls4 15:34 PT AMBULATED WITH STANDBY ASSISTANCE. NO DISTRESS OR COMPLAINTS OF EARLIER SYMPTOMS. . ls4 16:00 IV discontinued, intact, bleeding controlled, No redness/swelling at site. Pressure ls4 dressing applied. Administered Medications: No medications were administered Outcome: 15:35 Discharge ordered by . gs 16:00 Discharged to home via wheelchair, with family. ls4 16:00 Condition: good 16:00 Discharge instructions given to patient, family, Instructed on discharge instructions, follow up and referral plans. medication usage, safety practices, Demonstrated understanding of Prescriptions given X 1. 16:02 Patient left the ED. ls4 NIH Stroke Scale - NIH Stroke Score Date: 11/11/2018 Time: 15:25 Total Score = 0 1a. Level of Consciousness (LOC) - 0(Alert) 1b. Level of Consciousness (LOC) (Year \T\ Age) - 0(Both) 1c. LOC Commands (Open \T\ Closes Eyes/Child Monitor) - 0(Both) 2. Best Gaze (Lateral Gaze Paresis) - 0(Normal) 3. Visual Field Loss - 0(No visual loss) 4. Facial Palsy - 0(Normal) 5a. Left Arm: Motor (10-second hold) - 0(No drift) 5b. Right Arm: Motor (10-second hold) - 0(No drift) 6a. Left Leg: Motor (5-second hold - always test supine) - 0(No drift) 6b. Right Leg: Motor (5-second hold - always test supine) - 0(No drift) 7. Limb Ataxia (finger/nose \T\ heel/marcus - test with eyes open) - 0(Absent) 8. Sensory Loss (pinprick arms/legs/face) - 0(Normal) 9. Best Language: Aphasia (description/naming/reading) - 0(No aphasia) 10. Dysarthria (speech clarity - read or repeat words) - 0(Normal) 11. Extinction and Inattention (visual/tactile/auditory/spatial/personal) - 0(No abnormality) Initials: Signatures: Dispatcher [employer] Fabiola Pearson, RN RN iw Nader Santos MD MD gs Montes, Shakira 3 Romel Mojica ls3 Nancy Williamson RN RN ls4
--- NOTE | 2018-11-11 15:35 | EDPHYS ---
Physician Documentation [facility] Name: Estefani Leiva Age: 78 yrs Sex: Female : 1940 Arrival Date: 11/11/2018 Time: 13:23 Bed 23 Private MD: ED Physician Nader Santos HPI: 11/11 15:25 This 78 yrs old Black Female presents to ER via EMS with complaints of Near Syncope. gs 15:25 Onset: The symptoms/episode began/occurred acutely, just prior to arrival. Duration: gs This was a single episode. Context: occurred at a store. Associated injury: The patient did not suffer any apparent associated injury. Associated signs and symptoms: Pertinent positives: dizziness, lightheadedness, Pertinent negatives: abdominal pain, chest pain, confusion. Current symptoms: Currently, the patient is not experiencing any symptoms. The patient has experienced similar episodes in the past, several times. Historical: - Allergies: 13:41 NKA; iw - Home Meds: 13:41 atorvastatin 40 mg Oral tab 1 tab once daily [Active]; Humulin 70/30 100 unit/mL iw (70-30) Sub-Q susp 32 units in am and 20 units at night [Active]; isosorbide dinitrate 30 mg Oral tab 1 tab daily [Active]; metformin 1,000 mg Oral tr24 1 tab twice a day [Active]; metoprolol tartrate 100 mg Oral tab 1 tab 2 times per day [Active]; metronidazole 500 mg Oral tab 1 tab once daily [Active]; Miralax 17 gram/dose Oral powd once daily [Active]; trazodone 50 mg Oral tab 1 tab q hs prn [Active]; Vesicare 5 mg Oral tab 1 tab once daily [Active]; - PMHx: 13:41 chronic diarrhea; CVA; Diabetes - NIDDM; Hyperlipidemia; Hypertension; iw - PSHx: 13:41 Hysterectomy; iw - Immunization history:: Adult Immunizations. - Ebola Screening: : Patient negative for fever greater than or equal to 101.5 degrees Fahrenheit, and additional compatible Ebola Virus Disease symptoms Patient denies exposure to infectious person Patient denies travel to an Ebola-affected area in the 21 days before illness onset No symptoms or risks identified at this time. - Social history:: Smoking status: Patient/guardian denies using tobacco. ROS: 15:25 All other systems are negative. gs Exam: 15:25 Head/Face: Normocephalic, atraumatic. Eyes: Pupils equal round and reactive to light, gs extra-ocular motions intact. Lids and lashes normal. Conjunctiva and sclera are non-icteric and not injected. Cornea within normal limits. Periorbital areas with no swelling, redness, or edema. ENT: Nares patent. No nasal discharge, no septal abnormalities noted. Tympanic membranes are normal and external auditory canals are clear. Oropharynx with no redness, swelling, or masses, exudates, or evidence of obstruction, uvula midline. Mucous membranes moist. Neck: Trachea midline, no thyromegaly or masses palpated, and no cervical lymphadenopathy. Supple, full range of motion without nuchal rigidity, or vertebral point tenderness. No Meningismus. Chest/axilla: Normal chest wall appearance and motion. Nontender with no deformity. No lesions are appreciated. Cardiovascular: Regular rate and rhythm with a normal S1 and S2. No gallops, murmurs, or rubs. Normal PMI, no JVD. No pulse deficits. Respiratory: Lungs have equal breath sounds bilaterally, clear to auscultation and percussion. No rales, rhonchi or wheezes noted. No increased work of breathing, no retractions or nasal flaring. Abdomen/GI: Soft, non-tender, with normal bowel sounds. No distension or tympany. No guarding or rebound. No evidence of tenderness throughout. Back: No spinal tenderness. No costovertebral tenderness. Full range of motion. Skin: Warm, dry with normal turgor. Normal color with no rashes, no lesions, and no evidence of cellulitis. MS/ Extremity: Pulses equal, no cyanosis. Neurovascular intact. Full, normal range of motion. Neuro: Awake and alert, GCS 15, oriented to person, place, time, and situation. Cranial nerves II-XII grossly intact. Motor strength 5/5 in all extremities. Sensory grossly intact. Cerebellar exam normal. Normal gait. 15:25 ECG was reviewed by the Attending Physician. Vital Signs: 13:27 BP 107 / 51; Pulse 58; Resp 16; Temp 97.7(A); Pulse Ox 96% on R/A; Weight 73.48 kg; iw Height 5 ft. 10 in. (177.80 cm); Pain 0/10; 15:09 BP 131 / 64; Pulse 76; Resp 16; Pulse Ox 100% on R/A; Pain 0/10; ls4 13:27 Body Mass Index 23.24 (73.48 kg, 177.80 cm) iw NIH Stroke Scale Scores: 15:25 NIHSS Score: 0 gs MDM: 13:29 Patient medically screened. 15:25 Differential Diagnosis: cardiac arrhythmia, vasovagal episode, vertigo. Data reviewed: vital signs, nurses notes. Response to treatment: the patient's symptoms have markedly improved after treatment, and as a result, I will discharge patient. 11/11 13:30 Order name: Basic Metabolic Panel; Complete Time: 15:21 11/11 13:30 Order name: CBC with Diff; Complete Time: 15:21 11/11 13:30 Order name: Magnesium; Complete Time: 15:21 11/11 13:30 Order name: PT-INR; Complete Time: 15:21 11/11 13:30 Order name: Troponin (emerg Dept Use Only); Complete Time: 15:21 11/11 13:30 Order name: Urine Microscopic Only; Complete Time: 15:33 11/11 13:30 Order name: XRAY Chest (1 view); Complete Time: 15:21 11/11 13:30 Order name: EKG; Complete Time: 13:31 11/11 13:30 Order name: Cardiac monitoring; Complete Time: 13:30 11/11 13:30 Order name: EKG - Nurse/Tech; Complete Time: 13:47 11/11 13:30 Order name: IV Saline Lock; Complete Time: 13:30 11/11 13:30 Order name: Labs collected and sent; Complete Time: 13:30 11/11 15:35 Order name: Urine Culture [facility] 11/11 15:58 Order name: Urine Dipstick--Ancillary (enter results) 11/11 13:30 Order name: O2 Per Protocol; Complete Time: 13:30 11/11 13:30 Order name: O2 Sat Monitoring; Complete Time: 13:30 11/11 13:30 Order name: Urine Dipstick-Ancillary (obtain specimen); Complete Time: 14:21 EC:25 Rate is 60 beats/min. Rhythm is regular. TX interval is prolonged. QRS interval is gs normal. T waves are Flattened. Clinical impression: NSR w/ Non-specific ST/T Changes and Abnormal EKG without significant change. Interpreted by me. Administered Medications: No medications were administered Disposition: 11/11/18 15:35 Discharged to Home. Impression: Syncope and collapse, Benign paroxysmal vertigo. - Condition is Stable. - Discharge Instructions: Benign Positional Vertigo, Near-Syncope. - Prescriptions for Meclizine 25 mg Oral Tablet - take 1 tablet by ORAL route every 12 hours As needed; 15 tablet. - Medication Reconciliation Form, Thank You Letter, Antibiotic Education, Prescription Opioid Use form. - Follow up: Private Physician; When: 2 - 3 days; Reason: Re-evaluation by your physician. NIH Stroke Scale - NIH Stroke Score Date: 11/11/2018 Time: 15:25 Total Score = 0 1a. Level of Consciousness (LOC) - 0(Alert) 1b. Level of Consciousness (LOC) (Year \T\ Age) - 0(Both) 1c. LOC Commands (Open \T\ Closes Eyes/Clinical Supervisor) - 0(Both) 2. Best Gaze (Lateral Gaze Paresis) - 0(Normal) 3. Visual Field Loss - 0(No visual loss) 4. Facial Palsy - 0(Normal) 5a. Left Arm: Motor (10-second hold) - 0(No drift) 5b. Right Arm: Motor (10-second hold) - 0(No drift) 6a. Left Leg: Motor (5-second hold - always test supine) - 0(No drift) 6b. Right Leg: Motor (5-second hold - always test supine) - 0(No drift) 7. Limb Ataxia (finger/nose \T\ heel/marcus - test with eyes open) - 0(Absent) 8. Sensory Loss (pinprick arms/legs/face) - 0(Normal) 9. Best Language: Aphasia (description/naming/reading) - 0(No aphasia) 10. Dysarthria (speech clarity - read or repeat words) - 0(Normal) 11. Extinction and Inattention (visual/tactile/auditory/spatial/personal) - 0(No abnormality) Initials: Signatures: Dispatcher [employer] EDDE Fabiola Anderson RN RN iw Nader Santos MD MD Nancy Williamson RN RN ls4 Corrections: (The following items were deleted from the chart) 16:02 15:35 11/11/2018 15:35 Discharged to Home. Impression: Syncope and collapse; ls4 Benign paroxysmal vertigo. Condition is Stable. Forms are Medication Reconciliation Form, Thank You Letter, Antibiotic Education, Prescription Opioid Use. Follow up: Private Physician; When: 2 - 3 days; Reason: Re-evaluation by your physician. gs
[2018-11-11 16:16] LABS: Urine Blood NEGATIVE (NEG); Urine Glucose NEGATIVE (NEG); Urine Protein 1+ (NEG); Urine Specific Gravity 1.025 (1.005-1.030)
[2018-11-11 16:38] VITALS: BP 131/64; O2SAT 100
== END 2018-11-11 16:02 | disposition home or self-care (01) ==
LOC: ER 13:15
DX: H81.10 Benign paroxysmal vertigo, unspecified ear (principal); I10 Essential (primary) hypertension; E78.5 Hyperlipidemia, unspecified; E11.9 Type 2 diabetes mellitus without complications; Z79.4 Long term (current) use of insulin; Z86.73 Personal history of transient ischemic attack (TIA), and cerebral infarction without residual deficits
CPT/HCPCS: 36415; 71045; 80048; 81003; 81015; 83735; 84484; 85025; 85610; 87086; 87088; 93005; 99284

== ENCOUNTER 2019-04-25 11:16 | Emergency (ER) | payer OTHER ==
[2019-04-25 13:49] LABS: Absolute Lymphocytes (CBC) 1.3 K/uL (0.7-4.9); Absolute Monocytes 0.4 K/uL (0.1-1.3); Absolute Neutrophil 5.2 K/uL (1.8-8.0); Basophils % 0.8 % (0-1.3); Eosinophils % 0.3 % (0-4.4); Hematocrit 41.1 % (36.0-45.0); Lymphocytes % 18.7 % (15.3-44.8); MPV 10.2 fL (7.6-11.3); Monocytes % 5.1 % (3.3-12.3); RBC Red Blood Cell Count 4.24 M/uL (3.86-4.86)
[2019-04-25 14:09] LABS: Albumin 3.6 g/dL (3.4-5.0); Bilirubin Direct 0.2 mg/dL (0-0.2); Bilirubin Total 0.7 mg/dL (0.2-1.0); Potassium 4.1 mmol/L (3.5-5.1); Protein, Total 7.8 g/dL (6.4-8.2)
--- OUTSIDE RECORDS SUMMARY | 2019-04-25 14:31 | XMS REPORT | Clinical Summary ---
:1940 Author Organization [facility] Address [address] [place] [address] Care Team Providers Name Role Phone Pcp, No Primary Care Provider Unavailable Hair Mixon Unavailable Allergies No Known Allergies Medications Medication Sig Dispensed Refills Start Date End Date Status aspirin 81 MG EC Take 81 mg by 0 Active tablet mouth daily. atorvastatin Take 40 mg by 0 10/01/2018 Active (LIPITOR) 40 MG mouth daily. tablet furosemide (LASIX) Take 20 mg by 0 09/11/2018 Active 20 MG tablet mouth daily. HUMULIN 70/30 U-100 INJECT 32 UNITS 0 08/29/2018 Active INSULIN 100 unit/mL UNDER THE SKIN (70-30) injection EVERY MORNING AND 20 UNITS EVERY EVENING metFORMIN Take 1,000 mg by 0 08/31/2018 Active (GLUCOPHAGE-XR) 500 mouth 2 (two) MG 24 hr tablet times daily. VESICARE 5 mg Take 5 mg by 0 09/11/2018 Active tablet mouth daily. traZODone (DESYREL) Take 50 mg by 0 10/21/2018 Active 50 MG tablet mouth every night as needed. polyethylene glycol Use daily per 0 12/27/2018 Active (GLYCOLAX) 17 gram package packet instructions for constipation. Is vnue-zps-cpatzib. . lisinopril Take 1 tablet (10 0 12/27/2018 12/27/19 Active (PRINIVIL,ZESTRIL) mg total) by 20 10 MG tablet mouth daily. ferrous sulfate 325 Take 1 tablet 60 tablet 1 12/27/2018 12/27/19 Active (65 FE) MG tablet (325 mg total) by 20 mouth 2 (two) times daily with breakfast and dinner No more refills through my office. metoprolol Take 0.5 tablets 30 tablet 5 12/27/2018 12/27/19 Active (LOPRESSOR) 25 MG (12.5 mg total) 20 tablet by mouth 2 (two) times daily No more refills through my office. isosorbide Take 30 mg by 0 09/12/2018 12/27/19 Discontinued dinitrate (ISORDIL) mouth daily. 19 30 MG tablet lisinopril Take 10 mg by 0 09/11/2018 12/27/19 Discontinued (PRINIVIL,ZESTRIL) mouth daily. 19 10 MG tablet metoprolol Take 100 mg by 0 08/31/2018 12/27/19 Discontinued (LOPRESSOR) 100 MG mouth 2 (two) 19 tablet times daily. spironolactone Take 25 mg by 0 09/11/2018 12/27/19 Discontinued (ALDACTONE) 25 MG mouth daily. 19 tablet metoprolol Take 0.5 tablets 30 tablet 5 12/27/2018 12/27/19 Discontinued (LOPRESSOR) 25 MG (12.5 mg total) 19 tablet by mouth 2 (two) times daily No more refills through my office. acetaminophen-codei Take 1 tablet by 30 tablet 0 12/27/2018 12/27/19 Discontinued ne (TYLENOL #3) mouth every 6 19 300-30 mg per (six) hours as tablet needed for Pain for up to 10 days No more refills through my office. ferrous sulfate 325 Take 1 tablet 60 tablet 1 12/27/2018 12/27/19 Discontinued (65 FE) MG tablet (325 mg total) by 19 mouth 2 (two) times daily with breakfast and dinner No more refills through my office. acetaminophen-codei Take 1 tablet by 30 tablet 0 12/27/2018 01/06/20 ne (TYLENOL #3) mouth every 6 19 300-30 mg per (six) hours as tablet needed for Pain for up to 10 days No more refills through my office. Active Problems Problem Noted Date S/P CABG (coronary artery bypass graft) 12/27/2018 S/P carotid endarterectomy 12/27/2018 CAD (coronary artery disease) 12/17/2018 Carotid stenosis, right 11/28/2018 Carotid artery occlusion Coronary artery disease Stroke Hypertension Hyperlipidemia Encounters Date Type Specialty Care Team Description 01/06/2019 Office Visit Cardiology Adolph, Postoperative state Geo (Primary Dx) MD Scarlet 12/17/2018 Surgery [facility], BYPASS,AORTO CORONARY EDEN Geo Novak MD 12/17/2018 Anesthesia Event Dony Childers MD 11/30/2018 Orders Only General Internal Medicine 11/28/2018 Surgery [facility], ENDARTERECTOMY,CAROTID Geo Novak MD 11/28/2018 Anesthesia Event Dimitri Kowalski MD 11/28/2018 [facility] Cardiology [facility], Carotid stenosis, right (Primary Dx ); - Encounter Geo Occlusion of right carotid artery; 12/27/2018 MD Scarlet Essential hypertension; Dann Jensen, Cerebrovascular accident (CVA), unspecified mechanism (HCC) ; Coronary artery disease involving [place] heart with angina pectoris, unspecified vessel or lesion type (HCC); S/P CABG (coronary artery bypass graft); Impaired mobility and ADLs; Other abnormalities of gait and mobility 11/04/2018 Office Visit Cardiology Adolph, Occlusion of right carotid artery; Geo Coronary artery disease involving [place] coronary artery of [place] heart without angina pectoris; MD Scarlet Cerebrovascular accident (CVA), unspecified mechanism (HCC); Essential hypertension; Pure hypercholesterolemia after 04/24/2018 Family History Medical History Relation Name Comments [...] Vital Sign Reading Time Taken Blood Pressure 99/52 01/06/2019 11:14 AM RESIDENT PHYSICIAN Pulse 95 01/06/2019 11:14 AM RESIDENT PHYSICIAN Temperature 37 C (98.6 F) 01/06/2019 11:14 AM RESIDENT PHYSICIAN Respiratory Rate 18 01/06/2019 11:14 AM RESIDENT PHYSICIAN Oxygen Saturation 98% 01/06/2019 11:14 AM RESIDENT PHYSICIAN Inhaled Oxygen Concentration 60% 12/18/2018 5:00 PM RESIDENT PHYSICIAN Weight 68.9 kg (152 lb) 01/06/2019 11:14 AM RESIDENT PHYSICIAN Height 177.8 cm (5' 10") 01/06/2019 11:14 AM RESIDENT PHYSICIAN Body Mass Index 21.81 01/06/2019 11:14 AM RESIDENT PHYSICIAN Plan of Treatment Not on file Implants Implanted Type Area Engraving Patternmaker Device Shelf Model / Identifier Expiration Serial / Lot Date Leila Hemshld Dbl Akin 0.3x3.0in [id number] - [id number] Graft/Pa Right: GETINGE 02/23/2023 [id number] / Implanted: Qty: 1 on 11/28/2018 by Geo Farfan MD [facility] Neck IND: MAQUET:CV [id number] / [id number] Procedures Procedure Name Priority Date/Time Associated Comments Diagnosis RHYTHM STRIP - SCAN 02/28/2019 10:30 AM CDT RHYTHM STRIP - SCAN 02/27/2019 3:01 PM CDT RHYTHM STRIP - SCAN 02/11/2019 3:40 PM CDT RHYTHM STRIP - SCAN 01/13/2019 9:00 AM RESIDENT PHYSICIAN RHYTHM STRIP - SCAN 01/13/2019 9:00 AM RESIDENT PHYSICIAN POCT-GLUCOSE METER Routine 12/27/2018 1:27 Results for this PM RESIDENT PHYSICIAN procedure are in the results section. POCT-GLUCOSE METER Routine 12/27/2018 8:52 Results for this AM RESIDENT PHYSICIAN procedure are in the results section. CBC W/PLT COUNT & AUTO Routine 12/27/2018 5:54 Results for this DIFFERENTIAL AM RESIDENT PHYSICIAN procedure are in the results section. MAGNESIUM Routine 12/27/2018 5:54 Results for this AM RESIDENT PHYSICIAN procedure are in the results section. BASIC METABOLIC PANEL Routine 12/27/2018 5:54 Results for this (7) AM RESIDENT PHYSICIAN procedure are in the results section. CBC W/PLT COUNT & AUTO Routine 12/27/2018 5:54 Results for this DIFFERENTIAL AM RESIDENT PHYSICIAN procedure are in the results section. POCT-GLUCOSE METER Routine 12/26/2018 11:22 Results for this PM RESIDENT PHYSICIAN procedure are in the results section. POCT-GLUCOSE METER Routine 12/26/2018 6:06 Results for this PM RESIDENT PHYSICIAN procedure are in the results section. POCT-GLUCOSE METER Routine 12/26/2018 1:03 Results for this PM RESIDENT PHYSICIAN procedure are in the results section. POCT-GLUCOSE METER Routine 12/26/2018 8:54 Results for this AM RESIDENT PHYSICIAN procedure are in the results section. POCT-GLUCOSE METER Routine 12/25/2018 9:28 Results for this PM RESIDENT PHYSICIAN procedure are in the results section. POCT-GLUCOSE METER Routine 12/25/2018 5:24 Results for this PM RESIDENT PHYSICIAN procedure are in the results section. POCT-GLUCOSE METER Routine 12/25/2018 1:11 Results for this PM RESIDENT PHYSICIAN procedure are in the results section. POCT-GLUCOSE METER Routine 12/25/2018 9:39 Results for this AM RESIDENT PHYSICIAN procedure are in the results section. POCT-GLUCOSE METER Routine 12/25/2018 8:07 Results for this AM RESIDENT PHYSICIAN procedure are in the results section. CBC W/PLT COUNT & AUTO Routine 12/25/2018 4:19 Results for this DIFFERENTIAL AM RESIDENT PHYSICIAN procedure are in the results section. URIC ACID Routine 12/25/2018 4:19 Results for this AM RESIDENT PHYSICIAN procedure are in the results section. MAGNESIUM Routine 12/25/2018 4:19 Results for this AM RESIDENT PHYSICIAN procedure are in the results section. CBC W/PLT COUNT & AUTO Routine 12/25/2018 4:19 Results for this DIFFERENTIAL AM RESIDENT PHYSICIAN procedure are in the results section. BASIC METABOLIC PANEL Routine 12/25/2018 4:19 Results for this (7) AM RESIDENT PHYSICIAN procedure are in the results section. POCT-GLUCOSE METER Routine 12/24/2018 9:23 Results for this PM RESIDENT PHYSICIAN procedure are in the results section. POCT-GLUCOSE METER Routine 12/24/2018 5:57 Results for this PM RESIDENT PHYSICIAN procedure are in the results section. POCT-GLUCOSE METER Routine 12/24/2018 1:02 Results for this PM RESIDENT PHYSICIAN procedure are in the results section. POCT-GLUCOSE METER Routine 12/24/2018 8:43 Results for this AM RESIDENT PHYSICIAN procedure are in the results section. POCT-GLUCOSE METER Routine 12/23/2018 9:42 Results for this PM RESIDENT PHYSICIAN procedure are in the results section. POCT-GLUCOSE METER Routine 12/23/2018 5:27 Results for this PM RESIDENT PHYSICIAN procedure are in the results section. POCT-GLUCOSE METER Routine 12/23/2018 1:01 Results for this PM RESIDENT PHYSICIAN procedure are in the results section. ECHOCARDIOGRAM REPORT - 12/23/2018 11:20 SCAN AM RESIDENT PHYSICIAN POCT-GLUCOSE METER Routine 12/23/2018 8:37 Results for this AM RESIDENT PHYSICIAN procedure are in the results section. CBC W/PLT COUNT & AUTO Routine 12/23/2018 4:01 Results for this DIFFERENTIAL AM RESIDENT PHYSICIAN procedure are in the results section. CBC W/PLT COUNT & AUTO Routine 12/23/2018 4:01 Results for this DIFFERENTIAL AM RESIDENT PHYSICIAN procedure are in the results section. MAGNESIUM Routine 12/23/2018 4:01 Results for this AM RESIDENT PHYSICIAN procedure are in the results section. BASIC METABOLIC PANEL Routine 12/23/2018 4:01 Results for this (7) AM RESIDENT PHYSICIAN procedure are in the results section. POCT-GLUCOSE METER Routine 12/22/2018 10:01 Results for this PM RESIDENT PHYSICIAN procedure are in the results section. 2D ECHO W/ DOPPLER FITZ 12/22/2018 8:30 Results for this (CW/PW/COLOR) PM RESIDENT PHYSICIAN procedure are in the results section. POCT-GLUCOSE METER Routine 12/22/2018 6:17 Results for this PM RESIDENT PHYSICIAN procedure are in the results section. POCT-GLUCOSE METER Routine 12/22/2018 12:45 Results for this PM RESIDENT PHYSICIAN procedure are in the results section. POCT-GLUCOSE METER Routine 12/22/2018 9:29 Results for this AM RESIDENT PHYSICIAN procedure are in the results section. CBC W/PLT COUNT & AUTO Routine 12/22/2018 5:51 Results for this DIFFERENTIAL AM RESIDENT PHYSICIAN procedure are in the results section. CBC W/PLT COUNT & AUTO Routine 12/22/2018 5:51 Results for this DIFFERENTIAL AM RESIDENT PHYSICIAN procedure are in the results section. MAGNESIUM Routine 12/22/2018 5:39 Results for this AM RESIDENT PHYSICIAN procedure are in the results section. BASIC METABOLIC PANEL Routine 12/22/2018 5:39 Results for this (7) AM RESIDENT PHYSICIAN procedure are in the results section. POCT-GLUCOSE METER Routine 12/21/2018 10:05 Results for this PM RESIDENT PHYSICIAN procedure are in the results section. POCT-GLUCOSE METER Routine 12/21/2018 9:40 Results for this PM RESIDENT PHYSICIAN procedure are in the results section. POCT-GLUCOSE METER Routine 12/21/2018 5:35 Results for this PM RESIDENT PHYSICIAN procedure are in the results section. MAGNESIUM Routine 12/21/2018 2:38 Results for this PM RESIDENT PHYSICIAN procedure are in the results section. BASIC METABOLIC PANEL Routine 12/21/2018 2:38 Results for this (7) PM RESIDENT PHYSICIAN procedure are in the results section. CBC (HEMOGRAM ONLY) Routine 12/21/2018 2:38 Results for this PM RESIDENT PHYSICIAN procedure are in the results section. POCT-GLUCOSE METER Routine 12/21/2018 12:47 Results for this PM RESIDENT PHYSICIAN procedure are in the results section. POCT-GLUCOSE METER Routine 12/21/2018 8:48 Results for this AM RESIDENT PHYSICIAN procedure are in the results section. POCT-GLUCOSE METER Routine 12/20/2018 10:27 Results for this PM RESIDENT PHYSICIAN procedure are in the results section. POCT-GLUCOSE METER Routine 12/20/2018 5:09 Results for this PM RESIDENT PHYSICIAN procedure are in the results section. POCT-GLUCOSE METER Routine 12/20/2018 2:15 Results for this PM RESIDENT PHYSICIAN procedure are in the results section. XR CHEST 1 VIEW STAT 12/20/2018 11:31 Results for this PORTABLE/BEDSIDE AM RESIDENT PHYSICIAN procedure are in the results section. ECG 12-LEAD Routine 12/20/2018 11:13 Results for this AM RESIDENT PHYSICIAN procedure are in the results section. POCT-GLUCOSE METER Routine 12/20/2018 10:04 Results for this AM RESIDENT PHYSICIAN procedure are in the results section. MAGNESIUM Routine 12/20/2018 6:55 Results for this AM RESIDENT PHYSICIAN procedure are in the results section. CBC (HEMOGRAM ONLY) Routine 12/20/2018 6:55 Results for this AM RESIDENT PHYSICIAN procedure are in the results section. BASIC METABOLIC PANEL Routine 12/20/2018 6:55 Results for this (7) AM RESIDENT PHYSICIAN procedure are in the results section. POCT-GLUCOSE METER Routine 12/19/2018 10:02 Results for this PM RESIDENT PHYSICIAN procedure are in the results section. TRANSFUSION SERVICE 12/19/2018 5:50 REPORT - SCAN PM RESIDENT PHYSICIAN POCT-GLUCOSE METER Routine 12/19/2018 5:44 Results for this PM RESIDENT PHYSICIAN procedure are in the results section. POCT-GLUCOSE METER Routine 12/19/2018 12:24 Results for this PM RESIDENT PHYSICIAN procedure are in the results section. POCT-GLUCOSE METER Routine 12/19/2018 8:49 Results for this AM RESIDENT PHYSICIAN procedure are in the results section. ECG 12-LEAD Routine 12/19/2018 6:44 Results for this AM RESIDENT PHYSICIAN procedure are in the results section. PHOSPHORUS Routine 12/19/2018 6:32 Results for this AM RESIDENT PHYSICIAN procedure are in the results section. MAGNESIUM Routine 12/19/2018 6:32 Results for this AM RESIDENT PHYSICIAN procedure are in the results section. CBC (HEMOGRAM ONLY) Routine 12/19/2018 6:32 Results for this AM RESIDENT PHYSICIAN procedure are in the results section. BASIC METABOLIC PANEL Routine 12/19/2018 6:32 Results for this (7) AM RESIDENT PHYSICIAN procedure are in the results section. PREPARE RBC STAT 12/18/2018 11:54 Results for this PM RESIDENT PHYSICIAN procedure are in the results section. POCT-GLUCOSE METER Routine 12/18/2018 9:27 Results for this PM RESIDENT PHYSICIAN procedure are in the results section. TRANSFUSION SERVICE 12/18/2018 5:53 REPORT - SCAN PM RESIDENT PHYSICIAN POCT-GLUCOSE METER Routine 12/18/2018 12:16 Results for this PM RESIDENT PHYSICIAN procedure are in the results section. ECG 12-LEAD Routine 12/18/2018 10:22 AM RESIDENT PHYSICIAN Procedure Note - Interface, External Ris In - 12/18/2018 10:29 AM RESIDENT PHYSICIAN Ventricular Rate 61 BPM Atrial Rate 72 BPM QRS Duration 66 ms Q-T Interval 454 ms QTC Calculation(Bazett) 457 ms R Wales 0 degrees T Wales 30 degrees Atrial fibrillation Abnormal ECG ECG 12-LEAD STAT 12/18/2018 10:22 AM RESIDENT PHYSICIAN POCT-GLUCOSE METER Routine 12/18/2018 9:48 AM RESIDENT PHYSICIAN POCT-GLUCOSE METER Routine 12/18/2018 7:56 AM RESIDENT PHYSICIAN POCT-GLUCOSE METER Routine 12/18/2018 4:57 AM RESIDENT PHYSICIAN BLOOD GAS, ARTERIAL STAT 12/18/2018 4:49 AM RESIDENT PHYSICIAN PHOSPHORUS Routine 12/18/2018 4:49 AM RESIDENT PHYSICIAN APTT Routine 12/18/2018 4:49 AM RESIDENT PHYSICIAN MAGNESIUM Routine 12/18/2018 4:49 AM RESIDENT PHYSICIAN CBC (HEMOGRAM ONLY) Routine 12/18/2018 4:49 AM RESIDENT PHYSICIAN BASIC METABOLIC PANEL (7) Routine 12/18/2018 4:49 AM RESIDENT PHYSICIAN XR CHEST 1 VIEW Routine 12/18/2018 4:03 AM RESIDENT PHYSICIAN Results for this PORTABLE/BEDSIDE procedure are in the results section. POCT-GLUCOSE METER Routine 12/18/2018 2:53 AM RESIDENT PHYSICIAN BLOOD GAS, ARTERIAL STAT 12/18/2018 2:21 AM RESIDENT PHYSICIAN MAGNESIUM Routine 12/17/2018 10:54 PM RESIDENT PHYSICIAN BLOOD GAS, ARTERIAL STAT 12/17/2018 10:52 PM RESIDENT PHYSICIAN ECG 12-LEAD STAT 12/17/2018 9:10 PM RESIDENT PHYSICIAN OXYGEN SATURATION, MEASURED STAT 12/17/2018 7:30 PM RESIDENT PHYSICIAN HGB/HCT (H&H) - STAT LAB STAT 12/17/2018 7:30 PM RESIDENT PHYSICIAN GLUCOSE-STAT LAB STAT 12/17/2018 7:30 PM RESIDENT PHYSICIAN POTASSIUM-STAT LAB STAT 12/17/2018 7:30 PM RESIDENT PHYSICIAN SODIUM NA-STAT LAB STAT 12/17/2018 7:30 PM RESIDENT PHYSICIAN BLOOD GAS, ARTERIAL STAT 12/17/2018 7:30 PM RESIDENT PHYSICIAN LACTIC ACID, ARTERIAL STAT 12/17/2018 7:30 PM RESIDENT PHYSICIAN MAGNESIUM STAT 12/17/2018 7:30 PM RESIDENT PHYSICIAN CALCIUM, IONIZED STAT 12/17/2018 7:30 PM RESIDENT PHYSICIAN RRL CRITICAL LABS STAT 12/17/2018 7:30 PM RESIDENT PHYSICIAN Results for this (ABG,NA,K,H&H,GLUCOSE) procedure are in the results section. POCT-GLUCOSE METER Routine 12/17/2018 6:35 PM RESIDENT PHYSICIAN TRANSFUSION SERVICE REPORT 12/17/2018 5:51 PM RESIDENT PHYSICIAN - SCAN POCT-GLUCOSE METER Routine 12/17/2018 5:34 PM RESIDENT PHYSICIAN POCT-GLUCOSE METER Routine 12/17/2018 3:26 PM RESIDENT PHYSICIAN MAGNESIUM Routine 12/17/2018 2:51 PM RESIDENT PHYSICIAN OXYGEN SATURATION, MEASURED STAT 12/17/2018 2:51 PM RESIDENT PHYSICIAN HGB/HCT (H&H) - STAT LAB Routine 12/17/2018 2:45 PM RESIDENT PHYSICIAN GLUCOSE-STAT LAB Routine 12/17/2018 2:45 PM RESIDENT PHYSICIAN POTASSIUM-STAT LAB Routine 12/17/2018 2:45 PM RESIDENT PHYSICIAN SODIUM NA-STAT LAB Routine 12/17/2018 2:45 PM RESIDENT PHYSICIAN BLOOD GAS, ARTERIAL Routine 12/17/2018 2:45 PM RESIDENT PHYSICIAN LACTIC ACID, ARTERIAL STAT 12/17/2018 2:45 PM RESIDENT PHYSICIAN RRL CRITICAL LABS Routine 12/17/2018 2:45 PM RESIDENT PHYSICIAN Results for this (ABG,NA,K,H&H,GLUCOSE) procedure are in the results section. ECG 12-LEAD Routine 12/17/2018 1:43 PM RESIDENT PHYSICIAN Procedure Note - Interface, External Ris In - 12/17/2018 1:52 PM RESIDENT PHYSICIAN Ventricular Rate 65 BPM Atrial Rate 65 BPM P-R Interval 348 ms QRS Duration 82 ms Q-T Interval 460 ms QTC Calculation(Bazett) 478 ms P Wales 56 degrees R Wales -22 degrees T Wales 90 degrees Sinus rhythm with 1st degree A-V block Prolonged QT Abnormal ECG When compared with ECG of 17-DEC-2018 13:43, No significant change was found ECG 12-LEAD Routine 12/17/2018 1:43 PM RESIDENT PHYSICIAN Procedure Note - Interface, External Ris In - 12/17/2018 1:51 PM RESIDENT PHYSICIAN Ventricular Rate 63 BPM Atrial Rate 63 BPM P-R Interval 280 ms QRS Duration 84 ms Q-T Interval 462 ms QTC Calculation(Bazett) 472 ms P Wales 70 degrees R Wales -22 degrees T Wales 78 degrees Sinus rhythm with 1st degree A-V block Prolonged QT Abnormal ECG When compared with ECG of 16-DEC-2018 13:57, No significant change was found ECG 12-LEAD STAT 12/17/2018 1:43 PM Results for this RESIDENT PHYSICIAN procedure are in the results section. BLOOD GAS, ARTERIAL STAT 12/17/2018 1:20 PM Results for this RESIDENT PHYSICIAN procedure are in the results section. XR CHEST 1 VIEW STAT 12/17/2018 12:03 PM Results for this PORTABLE/BEDSIDE RESIDENT PHYSICIAN procedure are in the results section. (CELLAVISION MANUAL Routine 12/17/2018 12:01 PM Results for this DIFF) RESIDENT PHYSICIAN procedure are in the results section. CBC W/PLT COUNT & Routine 12/17/2018 12:01 PM Results for this AUTO DIFFERENTIAL RESIDENT PHYSICIAN procedure are in the results section. LACTIC ACID, ARTERIAL STAT 12/17/2018 12:01 PM Results for this RESIDENT PHYSICIAN procedure are in the results section. MAGNESIUM STAT 12/17/2018 12:01 PM Results for this RESIDENT PHYSICIAN procedure are in the results section. BASIC METABOLIC PANEL Routine 12/17/2018 12:01 PM Results for this (7) RESIDENT PHYSICIAN procedure are in the results section. CBC W/PLT COUNT & Routine 12/17/2018 12:01 PM Results for this AUTO DIFFERENTIAL RESIDENT PHYSICIAN procedure are in the results section. OXYGEN SATURATION, STAT 12/17/2018 12:01 PM Results for this MEASURED RESIDENT PHYSICIAN procedure are in the results section. FIBRINOGEN STAT 12/17/2018 12:01 PM Results for this RESIDENT PHYSICIAN procedure are in the results section. APTT STAT 12/17/2018 12:01 PM Results for this RESIDENT PHYSICIAN procedure are in the results section. PROTHROMBIN TIME/INR STAT 12/17/2018 12:01 PM Results for this RESIDENT PHYSICIAN procedure are in the results section. CALCIUM, IONIZED STAT 12/17/2018 12:01 PM Results for this RESIDENT PHYSICIAN procedure are in the results section. BLOOD GAS, ARTERIAL STAT 12/17/2018 12:01 PM Results for this RESIDENT PHYSICIAN procedure are in the results section. HGB/HCT (H&H) - STAT STAT 12/17/2018 10:47 AM Results for this LAB RESIDENT PHYSICIAN procedure are in the results section. GLUCOSE-STAT LAB STAT 12/17/2018 10:47 AM Results for this RESIDENT PHYSICIAN procedure are in the results section. POTASSIUM-STAT LAB STAT 12/17/2018 10:47 AM Results for this RESIDENT PHYSICIAN procedure are in the results section. SODIUM NA-STAT LAB STAT 12/17/2018 10:47 AM Results for this RESIDENT PHYSICIAN procedure are in the results section. BLOOD GAS, ARTERIAL STAT 12/17/2018 10:47 AM Results for this RESIDENT PHYSICIAN procedure are in the results section. RRL CRITICAL LABS STAT 12/17/2018 10:47 AM Results for this (ABG,NA,K,H&H,GLUCOSE RESIDENT PHYSICIAN procedure are in ) the results section. CALCIUM, IONIZED STAT 12/17/2018 10:47 AM Results for this RESIDENT PHYSICIAN procedure are in the results section. HGB/HCT (H&H) - STAT STAT 12/17/2018 10:19 AM Results for this LAB RESIDENT PHYSICIAN procedure are in the results section. GLUCOSE-STAT LAB STAT 12/17/2018 10:19 AM Results for this RESIDENT PHYSICIAN procedure are in the results section. POTASSIUM-STAT LAB STAT 12/17/2018 10:19 AM Results for this RESIDENT PHYSICIAN procedure are in the results section. SODIUM NA-STAT LAB STAT 12/17/2018 10:19 AM Results for this RESIDENT PHYSICIAN procedure are in the results section. BLOOD GAS, ARTERIAL STAT 12/17/2018 10:19 AM Results for this RESIDENT PHYSICIAN procedure are in the results section. CALCIUM, IONIZED STAT 12/17/2018 10:19 AM Results for this RESIDENT PHYSICIAN procedure are in the results section. RRL CRITICAL LABS STAT 12/17/2018 10:19 AM Results for this (ABG,NA,K,H&H,GLUCOSE RESIDENT PHYSICIAN procedure are in ) the results section. HGB/HCT (H&H) - STAT STAT 12/17/2018 9:31 AM Results for this LAB RESIDENT PHYSICIAN procedure are in the results section. GLUCOSE-STAT LAB STAT 12/17/2018 9:31 AM Results for this RESIDENT PHYSICIAN procedure are in the results section. POTASSIUM-STAT LAB STAT 12/17/2018 9:31 AM Results for this RESIDENT PHYSICIAN procedure are in the results section. SODIUM NA-STAT LAB STAT 12/17/2018 9:31 AM Results for this RESIDENT PHYSICIAN procedure are in the results section. BLOOD GAS, ARTERIAL STAT 12/17/2018 9:31 AM Results for this RESIDENT PHYSICIAN procedure are in the results section. RRL CRITICAL LABS STAT 12/17/2018 9:31 AM Results for this (ABG,NA,K,H&H,GLUCOSE RESIDENT PHYSICIAN procedure are in ) the results section. TRANSFUSE Routine 12/17/2018 9:22 AM LEUKO-REDUCED RED RESIDENT PHYSICIAN BLOOD CELLS TRANSFUSE Routine 12/17/2018 9:22 AM LEUKO-REDUCED RED RESIDENT PHYSICIAN BLOOD CELLS HGB/HCT (H&H) - STAT STAT 12/17/2018 9:09 AM Results for this LAB RESIDENT PHYSICIAN procedure are in the results section. GLUCOSE-STAT LAB STAT 12/17/2018 9:09 AM Results for this RESIDENT PHYSICIAN procedure are in the results section. POTASSIUM-STAT LAB STAT 12/17/2018 9:09 AM Results for this RESIDENT PHYSICIAN procedure are in the results section. SODIUM NA-STAT LAB STAT 12/17/2018 9:09 AM Results for this RESIDENT PHYSICIAN procedure are in the results section. BLOOD GAS, ARTERIAL STAT 12/17/2018 9:09 AM Results for this RESIDENT PHYSICIAN procedure are in the results section. RRL CRITICAL LABS STAT 12/17/2018 9:09 AM Results for this (ABG,NA,K,H&H,GLUCOSE RESIDENT PHYSICIAN procedure are in ) the results section. ANESTHESIA SHADY Routine 12/17/2018 8:24 AM Results for this RESIDENT PHYSICIAN procedure are in the results section. HGB/HCT (H&H) - STAT STAT 12/17/2018 8:12 AM Results for this LAB RESIDENT PHYSICIAN procedure are in the results section. GLUCOSE-STAT LAB STAT 12/17/2018 8:12 AM Results for this RESIDENT PHYSICIAN procedure are in the results section. POTASSIUM-STAT LAB STAT 12/17/2018 8:12 AM Results for this RESIDENT PHYSICIAN procedure are in the results section. SODIUM NA-STAT LAB STAT 12/17/2018 8:12 AM Results for this RESIDENT PHYSICIAN procedure are in the results section. BLOOD GAS, ARTERIAL STAT 12/17/2018 8:12 AM Results for this RESIDENT PHYSICIAN procedure are in the results section. CALCIUM, IONIZED STAT 12/17/2018 8:12 AM Results for this RESIDENT PHYSICIAN procedure are in the results section. RRL CRITICAL LABS STAT 12/17/2018 8:12 AM Results for this (ABG,NA,K,H&H,GLUCOSE RESIDENT PHYSICIAN procedure are in ) the results section. ENDOSCOPIC 12/17/2018 7:30 AM Coronary artery HARVEST,VEIN RESIDENT PHYSICIAN disease with angina pectoris, unspecified vessel or lesion type, unspecified whether [place] or transplanted heart (HCC) Case Notes 2.5 BYPASS,AORTO CORONARY EDEN 12/17/2018 7:30 AM RESIDENT PHYSICIAN Coronary artery disease with angina pectoris, unspecified vessel or lesion type, unspecified whether [place] or transplanted heart (HCC) Case Notes 2.5 POCT-ACT Routine 12/17/2018 7:19 AM RESIDENT PHYSICIAN POCT-ACT Routine 12/17/2018 7:07 AM RESIDENT PHYSICIAN POCT-ACT Routine 12/17/2018 6:56 AM RESIDENT PHYSICIAN POCT-ACT Routine 12/17/2018 6:44 AM RESIDENT PHYSICIAN POCT-ACT Routine 12/17/2018 6:32 AM RESIDENT PHYSICIAN POCT-ACT Routine 12/17/2018 6:20 AM RESIDENT PHYSICIAN APTT Routine 12/17/2018 4:50 AM RESIDENT PHYSICIAN MAGNESIUM Routine 12/17/2018 4:50 AM RESIDENT PHYSICIAN CBC (HEMOGRAM ONLY) Routine 12/17/2018 4:50 AM RESIDENT PHYSICIAN BASIC METABOLIC PANEL (7) Routine 12/17/2018 4:50 AM RESIDENT PHYSICIAN PROTHROMBIN TIME/INR Routine 12/17/2018 4:50 AM RESIDENT PHYSICIAN POCT-GLUCOSE METER Routine 12/16/2018 9:04 PM RESIDENT PHYSICIAN POCT-GLUCOSE METER Routine 12/16/2018 5:18 PM RESIDENT PHYSICIAN TYPE AND SCREEN, AUTOMATED Routine 12/16/2018 4:29 PM RESIDENT PHYSICIAN ECG 12-LEAD Routine 12/16/2018 1:57 PM RESIDENT PHYSICIAN Procedure Note - Interface, External Ris In - 12/16/2018 2:01 PM RESIDENT PHYSICIAN Ventricular Rate 74 BPM Atrial Rate 74 BPM P-R Interval 406 ms QRS Duration 70 ms Q-T Interval 392 ms QTC Calculation(Bazett) 435 ms P Wales 58 degrees R Wales -19 degrees T Wales 79 degrees Sinus rhythm with 1st degree A-V block Minimal voltage criteria for LVH, may be normal variant Borderline ECG When compared with ECG of 09-DEC-2018 10:48, No significant change was found ECG 12-LEAD Routine 12/16/2018 1:57 PM RESIDENT PHYSICIAN POCT-GLUCOSE METER Routine 12/16/2018 12:31 PM RESIDENT PHYSICIAN POCT-GLUCOSE METER Routine 12/16/2018 9:50 AM RESIDENT PHYSICIAN APTT Routine 12/16/2018 4:06 AM RESIDENT PHYSICIAN MAGNESIUM Routine 12/16/2018 4:06 AM RESIDENT PHYSICIAN CBC (HEMOGRAM ONLY) Routine 12/16/2018 4:06 AM RESIDENT PHYSICIAN BASIC METABOLIC PANEL (7) Routine 12/16/2018 4:06 AM RESIDENT PHYSICIAN APTT Routine 12/15/2018 11:01 PM RESIDENT PHYSICIAN POCT-GLUCOSE METER Routine 12/15/2018 9:41 PM RESIDENT PHYSICIAN POCT-GLUCOSE METER Routine 12/15/2018 6:27 PM RESIDENT PHYSICIAN APTT Routine 12/15/2018 4:29 PM RESIDENT PHYSICIAN APTT Routine 12/15/2018 8:58 AM RESIDENT PHYSICIAN POCT-GLUCOSE METER Routine 12/15/2018 8:52 AM RESIDENT PHYSICIAN APTT Routine 12/15/2018 3:13 AM RESIDENT PHYSICIAN MAGNESIUM Routine 12/15/2018 3:13 AM RESIDENT PHYSICIAN CBC (HEMOGRAM ONLY) Routine 12/15/2018 3:13 AM RESIDENT PHYSICIAN BASIC METABOLIC PANEL (7) Routine 12/15/2018 3:13 AM RESIDENT PHYSICIAN APTT Routine 12/14/2018 9:04 PM RESIDENT PHYSICIAN POCT-GLUCOSE METER Routine 12/14/2018 8:26 PM RESIDENT PHYSICIAN POCT-GLUCOSE METER Routine 12/14/2018 2:32 PM RESIDENT PHYSICIAN APTT Routine 12/14/2018 1:43 PM RESIDENT PHYSICIAN POCT-GLUCOSE METER Routine 12/14/2018 7:43 AM RESIDENT PHYSICIAN APTT Routine 12/14/2018 5:43 AM RESIDENT PHYSICIAN MAGNESIUM Routine 12/14/2018 5:43 AM RESIDENT PHYSICIAN CBC (HEMOGRAM ONLY) Routine 12/14/2018 5:43 AM RESIDENT PHYSICIAN BASIC METABOLIC PANEL (7) Routine 12/14/2018 5:43 AM RESIDENT PHYSICIAN OCCULT BLOOD, STOOL Routine 12/13/2018 10:45 PM RESIDENT PHYSICIAN C. DIFFICILE GDH TOXIN Routine 12/13/2018 10:45 PM RESIDENT PHYSICIAN POCT-GLUCOSE METER Routine 12/13/2018 9:10 PM RESIDENT PHYSICIAN APTT Routine 12/13/2018 8:09 PM RESIDENT PHYSICIAN POCT-GLUCOSE METER Routine 12/13/2018 5:59 PM RESIDENT PHYSICIAN APTT Routine 12/13/2018 2:00 PM RESIDENT PHYSICIAN POCT-GLUCOSE METER Routine 12/13/2018 12:52 PM RESIDENT PHYSICIAN POCT-GLUCOSE METER Routine 12/13/2018 9:35 AM RESIDENT PHYSICIAN APTT Routine 12/13/2018 5:20 AM RESIDENT PHYSICIAN MAGNESIUM Routine 12/13/2018 5:20 AM RESIDENT PHYSICIAN CBC (HEMOGRAM ONLY) Routine 12/13/2018 5:20 AM RESIDENT PHYSICIAN BASIC METABOLIC PANEL (7) Routine 12/13/2018 5:20 AM RESIDENT PHYSICIAN POCT-GLUCOSE METER Routine 12/12/2018 11:15 PM RESIDENT PHYSICIAN POCT-GLUCOSE METER Routine 12/12/2018 6:09 PM RESIDENT PHYSICIAN POCT-GLUCOSE METER Routine 12/12/2018 1:03 PM RESIDENT PHYSICIAN APTT Routine 12/12/2018 12:18 PM RESIDENT PHYSICIAN POCT-GLUCOSE METER Routine 12/12/2018 8:51 AM RESIDENT PHYSICIAN APTT Routine 12/12/2018 4:41 AM RESIDENT PHYSICIAN MAGNESIUM Routine 12/12/2018 1:17 AM RESIDENT PHYSICIAN CBC (HEMOGRAM ONLY) Routine 12/12/2018 1:17 AM RESIDENT PHYSICIAN BASIC METABOLIC PANEL (7) Routine 12/12/2018 1:17 AM RESIDENT PHYSICIAN APTT Routine 12/12/2018 1:17 AM RESIDENT PHYSICIAN POCT-GLUCOSE METER Routine 12/11/2018 6:05 PM RESIDENT PHYSICIAN APTT Routine 12/11/2018 5:13 PM RESIDENT PHYSICIAN POCT-GLUCOSE METER Routine 12/11/2018 2:01 PM RESIDENT PHYSICIAN APTT Routine 12/11/2018 10:41 AM RESIDENT PHYSICIAN POCT-GLUCOSE METER Routine 12/11/2018 8:20 AM RESIDENT PHYSICIAN POCT-GLUCOSE METER Routine 12/10/2018 9:45 PM RESIDENT PHYSICIAN POCT-GLUCOSE METER Routine 12/10/2018 5:25 PM RESIDENT PHYSICIAN POCT-GLUCOSE METER Routine 12/10/2018 1:37 PM RESIDENT PHYSICIAN POCT-GLUCOSE METER Routine 12/10/2018 9:01 AM RESIDENT PHYSICIAN CBC W/PLT COUNT & AUTO Routine 12/10/2018 6:11 AM RESIDENT PHYSICIAN Results for this DIFFERENTIAL procedure are in the results section. MAGNESIUM Routine 12/10/2018 6:11 AM RESIDENT PHYSICIAN BASIC METABOLIC PANEL (7) Routine 12/10/2018 6:11 AM RESIDENT PHYSICIAN CBC W/PLT COUNT & AUTO Routine 12/10/2018 6:11 AM RESIDENT PHYSICIAN Results for this DIFFERENTIAL procedure are in the results section. APTT Routine 12/10/2018 6:11 AM RESIDENT PHYSICIAN APTT Routine 12/09/2018 11:51 PM RESIDENT PHYSICIAN TROPONIN I STAT 12/09/2018 11:51 PM RESIDENT PHYSICIAN POCT-GLUCOSE METER Routine 12/09/2018 11:25 PM RESIDENT PHYSICIAN POCT-GLUCOSE METER Routine 12/09/2018 5:42 PM RESIDENT PHYSICIAN TROPONIN I STAT 12/09/2018 5:32 PM RESIDENT PHYSICIAN POCT-GLUCOSE METER Routine 12/09/2018 1:54 PM RESIDENT PHYSICIAN MAGNESIUM Routine 12/09/2018 11:41 AM RESIDENT PHYSICIAN BASIC METABOLIC PANEL (7) Routine 12/09/2018 11:41 AM RESIDENT PHYSICIAN TROPONIN I STAT 12/09/2018 11:41 AM RESIDENT PHYSICIAN ECG 12-LEAD Routine 12/09/2018 10:48 AM RESIDENT PHYSICIAN Procedure Note - Interface, External Ris In - 12/09/2018 11:05 AM RESIDENT PHYSICIAN Ventricular Rate 72 BPM Atrial Rate 72 BPM P-R Interval 346 ms QRS Duration 70 ms Q-T Interval 416 ms QTC Calculation(Bazett) 455 ms P Wales 84 degrees R Wales -11 degrees T Wales 112 degrees Sinus rhythm with 1st degree A-V block Minimal voltage criteria for LVH, may be normal variant Nonspecific T wave abnormality Abnormal ECG When compared with ECG of 05-DEC-2018 16:10, Significant changes have occurred ECG 12-LEAD STAT 12/09/2018 10:48 AM RESIDENT PHYSICIAN POCT-GLUCOSE METER Routine 12/09/2018 8:33 AM RESIDENT PHYSICIAN CBC W/PLT COUNT & AUTO Routine 12/09/2018 5:44 AM RESIDENT PHYSICIAN Results for this DIFFERENTIAL procedure are in the results section. CBC W/PLT COUNT & AUTO Routine 12/09/2018 5:44 AM RESIDENT PHYSICIAN Results for this DIFFERENTIAL procedure are in the results section. POCT-GLUCOSE METER Routine 12/08/2018 10:51 PM RESIDENT PHYSICIAN POCT-GLUCOSE METER Routine 12/08/2018 7:29 PM RESIDENT PHYSICIAN POCT-GLUCOSE METER Routine 12/08/2018 12:25 PM RESIDENT PHYSICIAN POCT-GLUCOSE METER Routine 12/08/2018 9:17 AM RESIDENT PHYSICIAN POCT-GLUCOSE METER Routine 12/08/2018 7:32 AM RESIDENT PHYSICIAN CBC W/PLT COUNT & AUTO Routine 12/08/2018 4:52 AM RESIDENT PHYSICIAN Results for this DIFFERENTIAL procedure are in the results section. CBC W/PLT COUNT & AUTO Routine 12/08/2018 4:52 AM RESIDENT PHYSICIAN Results for this DIFFERENTIAL procedure are in the results section. BASIC METABOLIC PANEL (7) Routine 12/08/2018 4:52 AM RESIDENT PHYSICIAN POCT-GLUCOSE METER Routine 12/07/2018 10:51 PM RESIDENT PHYSICIAN POCT-GLUCOSE METER Routine 12/07/2018 5:23 PM RESIDENT PHYSICIAN POCT-GLUCOSE METER Routine 12/07/2018 11:59 AM RESIDENT PHYSICIAN POCT-GLUCOSE METER Routine 12/07/2018 8:06 AM RESIDENT PHYSICIAN POCT-GLUCOSE METER Routine 12/06/2018 11:02 PM RESIDENT PHYSICIAN POCT-GLUCOSE METER Routine 12/06/2018 5:01 PM RESIDENT PHYSICIAN POCT-GLUCOSE METER Routine 12/06/2018 1:01 PM RESIDENT PHYSICIAN POCT-GLUCOSE METER Routine 12/06/2018 8:16 AM RESIDENT PHYSICIAN POCT-GLUCOSE METER Routine 12/05/2018 10:49 PM RESIDENT PHYSICIAN POCT-GLUCOSE METER Routine 12/05/2018 6:59 PM RESIDENT PHYSICIAN ECG 12-LEAD Routine 12/05/2018 4:10 PM RESIDENT PHYSICIAN Procedure Note - Interface, External Ris In - 12/05/2018 4:20 PM RESIDENT PHYSICIAN Ventricular Rate 81 BPM Atrial Rate 81 BPM QRS Duration 62 ms Q-T Interval 386 ms QTC Calculation(Bazett) 448 ms P Wales 86 degrees R Wales -10 degrees T Wales 77 degrees Sinus rhythm with marked sinus arrhythmia with 1st degree A-V block Otherwise normal ECG When compared with ECG of 30-NOV-2018 11:52, Significant changes have occurred ECG 12-LEAD FITZ 12/05/2018 4:10 PM Results for this RESIDENT PHYSICIAN procedure are in the results section. POCT-GLUCOSE METER Routine 12/05/2018 1:38 PM Results for this RESIDENT PHYSICIAN procedure are in the results section. POCT-GLUCOSE METER Routine 12/05/2018 8:20 AM Results for this RESIDENT PHYSICIAN procedure are in the results section. CBC (HEMOGRAM ONLY) Routine 12/05/2018 6:09 AM Results for this RESIDENT PHYSICIAN procedure are in the results section. BASIC METABOLIC PANEL Routine 12/05/2018 6:09 AM Results for this (7) RESIDENT PHYSICIAN procedure are in the results section. POCT-GLUCOSE METER Routine 12/04/2018 10:00 PM Results for this RESIDENT PHYSICIAN procedure are in the results section. POCT-GLUCOSE METER Routine 12/04/2018 6:02 PM Results for this RESIDENT PHYSICIAN procedure are in the results section. C. DIFFICILE GDH TOXIN STAT 12/04/2018 5:55 PM Results for this RESIDENT PHYSICIAN procedure are in the results section. POCT-GLUCOSE METER Routine 12/04/2018 1:15 PM Results for this RESIDENT PHYSICIAN procedure are in the results section. POCT-GLUCOSE METER Routine 12/04/2018 7:33 AM Results for this RESIDENT PHYSICIAN procedure are in the results section. CBC (HEMOGRAM ONLY) Routine 12/04/2018 5:21 AM Results for this RESIDENT PHYSICIAN procedure are in the results section. MAGNESIUM Routine 12/04/2018 5:21 AM Results for this RESIDENT PHYSICIAN procedure are in the results section. BASIC METABOLIC PANEL Routine 12/04/2018 5:21 AM Results for this (7) RESIDENT PHYSICIAN procedure are in the results section. POCT-GLUCOSE METER Routine 12/03/2018 10:34 PM Results for this RESIDENT PHYSICIAN procedure are in the results section. POCT-GLUCOSE METER Routine 12/03/2018 5:06 PM Results for this RESIDENT PHYSICIAN procedure are in the results section. POCT-GLUCOSE METER Routine 12/03/2018 12:39 PM Results for this RESIDENT PHYSICIAN procedure are in the results section. POCT-GLUCOSE METER Routine 12/03/2018 8:12 AM Results for this RESIDENT PHYSICIAN procedure are in the results section. CBC (HEMOGRAM ONLY) Routine 12/03/2018 5:27 AM Results for this RESIDENT PHYSICIAN procedure are in the results section. MAGNESIUM Routine 12/03/2018 5:27 AM Results for this RESIDENT PHYSICIAN procedure are in the results section. BASIC METABOLIC PANEL Routine 12/03/2018 5:27 AM Results for this (7) RESIDENT PHYSICIAN procedure are in the results section. POCT-GLUCOSE METER Routine 12/02/2018 10:58 PM Results for this RESIDENT PHYSICIAN procedure are in the results section. POCT-GLUCOSE METER Routine 12/02/2018 5:14 PM Results for this RESIDENT PHYSICIAN procedure are in the results section. POCT-GLUCOSE METER Routine 12/02/2018 11:36 AM Results for this RESIDENT PHYSICIAN procedure are in the results section. POCT-GLUCOSE METER Routine 12/02/2018 8:45 AM Results for this RESIDENT PHYSICIAN procedure are in the results section. CBC (HEMOGRAM ONLY) Routine 12/02/2018 4:49 AM Results for this RESIDENT PHYSICIAN procedure are in the results section. MAGNESIUM Routine 12/02/2018 4:49 AM Results for this RESIDENT PHYSICIAN procedure are in the results section. BASIC METABOLIC PANEL Routine 12/02/2018 4:49 AM Results for this (7) RESIDENT PHYSICIAN procedure are in the results section. POCT-GLUCOSE METER Routine 12/01/2018 9:40 PM Results for this RESIDENT PHYSICIAN procedure are in the results section. POCT-GLUCOSE METER Routine 12/01/2018 5:52 PM Results for this RESIDENT PHYSICIAN procedure are in the results section. POCT-GLUCOSE METER Routine 12/01/2018 12:48 PM Results for this RESIDENT PHYSICIAN procedure are in the results section. POCT-GLUCOSE METER Routine 12/01/2018 9:48 AM Results for this RESIDENT PHYSICIAN procedure are in the results section. CBC W/PLT COUNT & AUTO Routine 12/01/2018 5:00 AM Results for this DIFFERENTIAL RESIDENT PHYSICIAN procedure are in the results section. HEPATIC FUNCTION PANEL Routine 12/01/2018 5:00 AM Results for this RESIDENT PHYSICIAN procedure are in the results section. MAGNESIUM Routine 12/01/2018 5:00 AM Results for this RESIDENT PHYSICIAN procedure are in the results section. BASIC METABOLIC PANEL Routine 12/01/2018 5:00 AM Results for this (7) RESIDENT PHYSICIAN procedure are in the results section. CBC W/PLT COUNT & AUTO Routine 12/01/2018 5:00 AM Results for this DIFFERENTIAL RESIDENT PHYSICIAN procedure are in the results section. POCT-GLUCOSE METER Routine 11/30/2018 9:24 PM Results for this RESIDENT PHYSICIAN procedure are in the results section. POCT-GLUCOSE METER Routine 11/30/2018 6:24 PM Results for this RESIDENT PHYSICIAN procedure are in the results section. POCT-GLUCOSE METER Routine 11/30/2018 12:19 PM Results for this RESIDENT PHYSICIAN procedure are in the results section. ECG 12-LEAD Routine 11/30/2018 11:52 AM Results for this RESIDENT PHYSICIAN procedure are in the results section. POCT-GLUCOSE METER Routine 11/30/2018 8:14 AM Results for this RESIDENT PHYSICIAN procedure are in the results section. CBC W/PLT COUNT & AUTO Routine 11/30/2018 5:46 AM Results for this DIFFERENTIAL RESIDENT PHYSICIAN procedure are in the results section. LIPID PANEL Routine 11/30/2018 5:46 AM Results for this RESIDENT PHYSICIAN procedure are in the results section. HEMOGLOBIN A1C Routine 11/30/2018 5:46 AM Results for this RESIDENT PHYSICIAN procedure are in the results section. MAGNESIUM Routine 11/30/2018 5:46 AM Results for this RESIDENT PHYSICIAN procedure are in the results section. BASIC METABOLIC PANEL Routine 11/30/2018 5:46 AM Results for this (7) RESIDENT PHYSICIAN procedure are in the results section. CBC W/PLT COUNT & AUTO Routine 11/30/2018 5:46 AM Results for this DIFFERENTIAL RESIDENT PHYSICIAN procedure are in the results section. POCT-GLUCOSE METER Routine 11/29/2018 9:43 PM Results for this RESIDENT PHYSICIAN procedure are in the results section. TRANSFUSION SERVICE 11/29/2018 5:53 PM REPORT - SCAN RESIDENT PHYSICIAN POCT-GLUCOSE METER Routine 11/29/2018 5:24 PM Results for this RESIDENT PHYSICIAN procedure are in the results section. POCT-GLUCOSE METER Routine 11/29/2018 3:22 PM Results for this RESIDENT PHYSICIAN procedure are in the results section. POCT-GLUCOSE METER Routine 11/29/2018 11:03 AM Results for this RESIDENT PHYSICIAN procedure are in the results section. POCT-GLUCOSE METER Routine 11/29/2018 7:22 AM Results for this RESIDENT PHYSICIAN procedure are in the results section. CBC W/PLT COUNT & AUTO Routine 11/29/2018 3:05 AM Results for this DIFFERENTIAL RESIDENT PHYSICIAN procedure are in the results section. MAGNESIUM Routine 11/29/2018 3:05 AM Results for this RESIDENT PHYSICIAN procedure are in the results section. BASIC METABOLIC PANEL Routine 11/29/2018 3:05 AM Results for this (7) RESIDENT PHYSICIAN procedure are in the results section. CBC W/PLT COUNT & AUTO Routine 11/29/2018 3:05 AM Results for this DIFFERENTIAL RESIDENT PHYSICIAN procedure are in the results section. BASIC METABOLIC PANEL Routine 11/28/2018 5:14 PM Results for this (7) RESIDENT PHYSICIAN procedure are in the results section. POCT-GLUCOSE METER Routine 11/28/2018 3:16 PM Results for this RESIDENT PHYSICIAN procedure are in the results section. POCT-GLUCOSE METER Routine 11/28/2018 2:35 PM Results for this RESIDENT PHYSICIAN procedure are in the results section. CBC W/PLT COUNT & AUTO STAT 11/28/2018 9:54 AM Results for this DIFFERENTIAL RESIDENT PHYSICIAN procedure are in the results section. PHOSPHORUS STAT 11/28/2018 9:54 AM Results for this RESIDENT PHYSICIAN procedure are in the results section. BLOOD GAS, ARTERIAL STAT 11/28/2018 9:54 AM Results for this RESIDENT PHYSICIAN procedure are in the results section. LACTIC ACID, ARTERIAL STAT 11/28/2018 9:54 AM Results for this RESIDENT PHYSICIAN procedure are in the results section. CALCIUM, IONIZED STAT 11/28/2018 9:54 AM Results for this RESIDENT PHYSICIAN procedure are in the results section. MAGNESIUM STAT 11/28/2018 9:54 AM Results for this RESIDENT PHYSICIAN procedure are in the results section. BASIC METABOLIC PANEL STAT 11/28/2018 9:54 AM Results for this (7) RESIDENT PHYSICIAN procedure are in the results section. CBC W/PLT COUNT & AUTO STAT 11/28/2018 9:54 AM Results for this DIFFERENTIAL RESIDENT PHYSICIAN procedure are in the results section. TISSUE EXAM AP Routine 11/28/2018 9:01 AM Results for this RESIDENT PHYSICIAN procedure are in the results section. ABORH, MANUAL STAT 11/28/2018 8:16 AM Results for this RESIDENT PHYSICIAN procedure are in the results section. ECG 12-LEAD Routine 11/28/2018 8:02 AM Results for this RESIDENT PHYSICIAN procedure are in the results section. 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 CBC W/PLT COUNT & AUTO Routine 11/28/2018 6:47 AM Results for this DIFFERENTIAL RESIDENT PHYSICIAN procedure are in the results section. TYPE AND SCREEN, Routine 11/28/2018 6:47 AM Results for this AUTOMATED RESIDENT PHYSICIAN procedure are in the results section. APTT Routine 11/28/2018 6:47 AM Results for this RESIDENT PHYSICIAN procedure are in the results section. PROTHROMBIN TIME/INR Routine 11/28/2018 6:47 AM Results for this RESIDENT PHYSICIAN procedure are in the results section. CBC W/PLT COUNT & AUTO Routine 11/28/2018 6:47 AM Results for this DIFFERENTIAL RESIDENT PHYSICIAN procedure are in the results section. COMPREHENSIVE Routine 11/28/2018 6:47 AM Results for this METABOLIC PANEL RESIDENT PHYSICIAN procedure are in the results section. after 04/24/2018 Results RHYTHM STRIP - SCAN (02/28/2019 10:30 AM CDT)Only the most recent of5 resultswithin the time period is included. Narrative Performed At POC-Glucose meter (12/27/2018 1:27 PM RESIDENT PHYSICIAN)Only the most recent of118 resultswithin the time period is included. POC-Glucose Meter 153 (H)Comment: TESTED AT 70 - 110 mg/dL [facility] [address] [place] [id number] Specimen Blood Performing Organization Address City/State/Zipcode Phone Number [address] [address] CENTER CBC with platelet count + automated diff (12/27/2018 5:54 AM RESIDENT PHYSICIAN)Only the most recent of13 resultswithin the time period is included. WBC 7.1 3.5 - 10.5 K/L [facility] RBC 2.97 (L) 3.93 - 5.22 M/L [facility] Hemoglobin 9.2 (L) 11.2 - 15.7 GM/DL [facility] Hematocrit 30.1 (L) 34.1 - 44.9 % [facility] MCV 101.3 (H) 79.4 - 94.8 fL [facility] MCH 31.0 25.6 - 32.2 pg [facility] MCHC 30.6 (L) 32.2 - 35.5 GM/DL [facility] RDW 17.2 (H) 11.7 - 14.4 % [facility] Platelets 292 150 - 450 K/CU MM [facility] MPV 11.5 9.4 - 12.3 fL [facility] nRBC 0 0 - 0 /100 WBC [facility] % Neutros 71 % [facility] % Lymphs 19 % [facility] % Monos 7 % [facility] % Eos 2 % [facility] % Baso 1 % [facility] # Neutros 5.01 1.56 - 6.13 K/L [facility] # Lymphs 1.35 1.18 - 3.74 K/L [facility] # Monos 0.50 (H) 0.24 - 0.36 K/L [facility] # Eos 0.11 0.04 - 0.36 K/L [facility] # Baso 0.05 0.01 - 0.08 K/L [facility] Immature 1 0 - 1 % [facility] Granulocytes-[facility] Specimen Blood Performing Organization Address City/State/Zipcode Phone Number [address] [address] CENTER Magnesium (12/27/2018 5:54 AM RESIDENT PHYSICIAN)Only the most recent of27 resultswithin the time period is included. Magnesium 1.5 (L) 1.6 - 2.6 mg/dL [facility] Specimen Blood Performing Organization Address City/State/Zipcode Phone Number [address] [address] [place] Basic Metabolic Panel (12/27/2018 5:54 AM RESIDENT PHYSICIAN)Only the most recent of27 resultswithin the time period is included. Sodium 141 136 - 145 meq/L [facility] Potassium 4.9 3.5 - 5.1 meq/L [facility] Chloride 105 98 - 107 meq/L [facility] CO2 28 22 - 29 meq/L [facility] BUN 11 7 - 21 mg/dL [facility] Creatinine 0.88 0.57 - 1.25 mg/dL [facility] Glucose 132 (H) 70 - 105 mg/dL [facility] Calcium 9.9 8.4 - 10.2 mg/dL [facility] EGFR 75Comment: ESTIMATED GFR IS mL/min/1.73 sq m [facility] NOT ACCURATE CREATININE [facility] CENTER CLEARANCE IN PREDICTING GLOMERULAR FILTRATION RATE. ESTIMATED GFR IS NOT APPLICABLE FOR DIALYSIS PATIENTS. Specimen Blood Performing Organization Address City/State/Zipcode Phone Number [address] [address] [phone] [place] Uric acid (12/25/2018 4:19 AM RESIDENT PHYSICIAN) Uric Acid 5.9 2.6 - 7.2 mg/dL [facility] Specimen Blood Performing Organization Address City/State/Zipcode Phone Number [address] [address] [place] ECHOCARDIOGRAM REPORT - SCAN (12/23/2018 11:20 AM RESIDENT PHYSICIAN) Narrative Performed At 2D Echo W/Doppler(CW/PW/Color) (12/22/2018 8:30 PM RESIDENT PHYSICIAN) Ejection Fraction [facility] Specimen Narrative Performed At Transthoracic Echocardiography Report (TTE) 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 Clinical History CANCER, ANEMIA, CHF, ACBX2(12/17/18) HLD, HTN HGB 8.9 HCT 28.9 % Height: 70 inches Weight: 68.04 kg (150 lbs) BSA: 1.85 m^2 BMI: 21.52 kg/m^2 HR: 100 bpm BP: 110/58 mmHg Summary The left ventricle is chamber size (by PSLAX dimension) is small . LV septal thickness is mildly increased. LV posterior wall thickness is normal . All of the LV segments are hyperkinetic . Estimated LVEF by qualitative assessment is increased (>60%) . Normal right ventricle structure and function. Estimated peak systolic PA pressure is 35-40 mmHg . No evidence of pericardial effusion. Signature Findings Left Ventricle The left ventricle is chamber size (by PSLAX di mension) is small . LV septal thickness is mildly in creased. LV posterior wall thickness is normal . Al l of the LV segments are hyperkinetic . Estimated LV EF by qualitative assessment is increased (>60%) . Left AtriumLA size is normal . Right VentricleNormal right ventricle structure and function. Right Atrium Normal right atrium. Aortic Valve Mild AoV cusp thickening. A trace of aortic regurgitation. Mitral Valve Mild MV leaflet thickening. Tricuspid ValveMild tricuspid regurgitation. Es timated peak systolic PA pressure is 35-40 mmHg . Pulmonic Valve PV is not well visualized. AortaAortic root size (SInus of Valsalva diameter) is no rmal . PericardiumNo evidence of pericardial effusion. IVC/SVC/PA/PV/PleuralThe estimated RA pressure by IVC dynamics 5-10mmHg . A left pleural effusion is noted. Chambers/Structures Left Atrium LA Dimension: 3.45 cmLA Area: 20.27 cm^2 LA Volume: 55.46 ml LA Vol. Index: 30 ml/m^2 Left Ventricle LVIDd: 3.57 cm LV Septum Diastolic: 1.17 cm LV PW Diastolic: 1.05 cm LVOT Diameter: 2.02 cm Aorta Ao Root S of Heather.: 3.31 cm Doppler/Quantitative Measurements LVOT Peak Velocity: 1.32 m/s Peak Gradient: 6.93 mmHg Mean Velocity: 0.83 m/s Mean Gradient: 3.37 mmHg LVOT Diameter: 2.02 cmLVOT VTI: 19.23 cm LVOT Area: 3.2 cm^2 LVOT SV:61.6 ml LVOT CO: 6.16 l/min LVOT CI: 3.33 l/min/m^2 Procedure Note Interface, External Ris In - 12/23/2018 10:38 AM RESIDENT PHYSICIAN Transthoracic Echocardiography Report (TTE) Demographics Patient Name AVIS LEIVA Date of Study 12/22/2018 TOPHER Gender Female Visit Number [id number] Race Unknown Room Number 1161 Number Date of 1940 Referring LEONORA Fernandes Physician Age 78 year(s) 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 Clinical History CANCER, ANEMIA, CHF, ACBX2(12/17/18) HLD, HTN HGB 8.9 HCT 28.9 % Height: 70 inches Weight: 68.04 kg (150 lbs) BSA: 1.85 m^2 BMI: 21.52 kg/m^2 HR: 100 bpm BP: 110/58 mmHg Summary The left ventricle is chamber size (by PSLAX dimension) is small . LV septal thickness is mildly increased. LV posterior wall thickness is normal . All of the LV segments are hyperkinetic . Estimated LVEF by qualitative assessment is increased (>60%) . Normal right ventricle structure and function. Estimated peak systolic PA pressure is 35-40 mmHg . No evidence of pericardial effusion. Signature Findings Left Ventricle The left ventricle is chamber size (by PSLAX dimension) is small . LV septal thickness is mildly increased. LV posterior wall thickness is normal . All of the LV segments are hyperkinetic . Estimated LVEF by qualitative assessment is increased (>60%) . Left Atrium LA size is normal . Right Ventricle Normal right ventricle structure and function. Right Atrium Normal right atrium. Aortic Valve Mild AoV cusp thickening. A trace of aortic regurgitation. Mitral Valve Mild MV leaflet thickening. Tricuspid Valve Mild tricuspid regurgitation. Estimated peak systolic PA pressure is 35-40 mmHg . Pulmonic Valve PV is not well visualized. Aorta Aortic root size (SInus of Valsalva diameter) is normal . Pericardium No evidence of pericardial effusion. IVC/SVC/PA/PV/Pleural The estimated RA pressure by IVC dynamics 5-10mmHg . A left pleural effusion is noted. Chambers/Structures Left Atrium LA Dimension: 3.45 cm LA Area: 20.27 cm^2 LA Volume: 55.46 ml LA Vol. Index: 30 ml/m^2 Left Ventricle LVIDd: 3.57 cm LV Septum Diastolic: 1.17 cm LV PW Diastolic: 1.05 cm LVOT Diameter: 2.02 cm Aorta Ao Root S of Heather.: 3.31 cm Doppler/Quantitative Measurements LVOT Peak Velocity: 1.32 m/s Peak Gradient: 6.93 mmHg Mean Velocity: 0.83 m/s Mean Gradient: 3.37 mmHg LVOT Diameter: 2.02 cm LVOT VTI: 19.23 cm LVOT Area: 3.2 cm^2 LVOT SV:61.6 ml LVOT CO: 6.16 l/min LVOT CI: 3.33 l/min/m^2 Performing Organization Address [facility] [place] [facility] Centercode Phone Number [facility] MKCKESSON CPACS CBC (Hemogram only) (12/21/2018 2:38 PM RESIDENT PHYSICIAN)Only the most recent of14 resultswithin the time period is included. WBC 9.0 3.5 - 10.5 K/L [facility] RBC 3.01 (L) 3.93 - 5.22 M/L [facility] Hemoglobin 9.5 (L) 11.2 - 15.7 GM/DL [facility] Hematocrit 30.6 (L) 34.1 - 44.9 % [facility] MCV 101.7 (H) 79.4 - 94.8 fL [facility] MCH 31.6 25.6 - 32.2 pg [facility] MCHC 31.0 (L) 32.2 - 35.5 GM/DL [facility] RDW 17.0 (H) 11.7 - 14.4 % [facility] Platelets 131 (L) 150 - 450 K/CU MM [facility] MPV 12.6 (H) 9.4 - 12.3 fL [facility] nRBC 1 (H) 0 - 0 /100 WBC [facility] Specimen Blood Performing Organization Address City/[facility]/Zipcode Phone Number [facility] [address] [place] [address] [phone] CENTER XR chest 1 view portable / bedside (12/20/2018 11:31 AM RESIDENT PHYSICIAN)Only the most recent of4 resultswithin the time period is included. Specimen Narrative Performed At FINAL REPORT [facility] TECHNIQUE: Frontal chest radiographs dated 12/20/2018. CLINICAL HISTORY: Shortness of breath COMPARISON STUDY: Chest radiograph dated 12/18/2018 IMPRESSION: Small left pleural effusion with associated atelectasis. Right lung is clear. No pneumothorax. Cardiomediastinal silhouette is normal in size. No pulmonary edema. Sternotomy wires are intact and well aligned. Bones are osteopenic. Signed: Flor Shipman MD Report Verified Date/Time:12/20/2018 12:01:09 Reading Location: [facility] Radiology Reading Room Procedure Note Interface, External Ris In - 12/20/2018 12:03 PM RESIDENT PHYSICIAN FINAL REPORT TECHNIQUE: Frontal chest radiographs dated 12/20/2018. CLINICAL HISTORY: Shortness of breath COMPARISON STUDY: Chest radiograph dated 12/18/2018 IMPRESSION: Small left pleural effusion with associated atelectasis. Right lung is clear. No pneumothorax. Cardiomediastinal silhouette is normal in size. No pulmonary edema. Sternotomy wires are intact and well aligned. Bones are osteopenic. Signed: Flor Shipman MD Report Verified Date/Time: 12/20/2018 12:01:09 Reading Location: [facility] Radiology Reading Room Performing Organization Address City/State/Zipcode Phone Number GE RIS ECG 12 lead (12/20/2018 11:13 AM RESIDENT PHYSICIAN)Only the most recent of10 resultswithin the time period is included. Specimen Narrative Performed At Ventricular Rate 84 BPM GE MUSE Atrial Rate 535 BPM QRS Duration 64 ms Q-T Interval 376 ms QTC Calculation(Bazett) 444 ms R Wales 9 degrees T Wales -18 degrees Atrial fibrillation Nonspecific T wave abnormality Abnormal ECG When compared with ECG of 19-DEC-2018 06:44, Atrial fibrillation replaced sinus rhythm Confirmed by MD SOLOMON YOCHAI ([id number]) on 12/22/2018 6:34:58 AM Procedure Note Interface, External Ris In - 12/22/2018 6:35 AM RESIDENT PHYSICIAN Ventricular Rate 84 BPM Atrial Rate 535 BPM QRS Duration 64 ms Q-T Interval 376 ms QTC Calculation(Bazett) 444 ms R Wales 9 degrees T Wales -18 degrees Atrial fibrillation Nonspecific T wave abnormality Abnormal ECG When compared with ECG of 19-DEC-2018 06:44, Atrial fibrillation replaced sinus rhythm Confirmed by MD SOLOMON YOCHAI ([id number]) on 12/22/2018 6:34:58 AM Performing Organization Address City/State/Zipcode Phone Number [facility] [employer] TRANSFUSION SERVICE REPORT - SCAN (12/19/2018 5:50 PM RESIDENT PHYSICIAN)Only the most recent of4 resultswithin the time period is included. Narrative Performed At Phosphorus (12/19/2018 6:32 AM RESIDENT PHYSICIAN)Only the most recent of3 resultswithin the time period is included. Phosphorus 2.9 2.3 - 4.7 mg/dL [facility] Specimen Blood Performing Organization Address [facility] [place] [facility] Centercode Phone Number [facility] [address] [place] [address] [phone] CENTER Prepare RBC (12/18/2018 11:54 PM RESIDENT PHYSICIAN) CROSSMATCH COMPATIBLE SAFETRACE TX Unit ABO O Pos SAFETRACE TX UNIT NUMBER [id number] SAFETRACE TX Status TRANSFUSED SAFETRACE TX Blood Bank Product RED BLOOD CELLS SAFETRACE TX PRODUCT CODE [id number] SAFETRACE TX CROSSMATCH COMPATIBLE SAFETRACE TX Unit ABO O Pos SAFETRACE TX UNIT NUMBER [id number] SAFETRACE TX Status TRANSFUSED SAFETRACE TX Blood Bank Product RED BLOOD CELLS SAFETRACE TX PRODUCT CODE [id number] SAFETRACE TX CROSSMATCH COMPATIBLE SAFETRACE TX Unit ABO O Pos SAFETRACE TX UNIT NUMBER [id number] SAFETRACE TX Status RETURNED FROM ISSUE SAFETRACE TX Blood Bank Product RED BLOOD CELLS SAFETRACE TX PRODUCT CODE [id number] SAFETRACE TX CROSSMATCH COMPATIBLE SAFETRACE TX Unit ABO O Pos SAFETRACE TX UNIT NUMBER [id number] SAFETRACE TX Status RETURNED FROM ISSUE SAFETRACE TX Blood Bank Product RED BLOOD CELLS SAFETRACE TX PRODUCT CODE [id number] SAFETRACE TX Performing Organization Address City/[facility] Phone Number SAFETRACE TX aPTT (12/18/2018 4:49 AM RESIDENT PHYSICIAN)Only the most recent of22 resultswithin the time period is included. PTT 32.9 22.5 - 36.0 seconds [facility] Specimen Blood Performing Organization Address City/[facility]/Zipcode Phone Number [facility] [address] [place] Blood gas, arterial (12/18/2018 4:49 AM RESIDENT PHYSICIAN)Only the most recent of13 resultswithin the time period is included. pH, Arterial 7.41 7.35 - 7.45 [facility] pCO2, Arterial 34 (L) 35 - 45 mmHg [facility] pO2, Arterial 242 (H) 80 - 90 mmHg [facility] O2 Sat, Arterial 99.6 (H) 96.0 - 97.0 % [facility] HCO3, Arterial 21 21 - 29 mmol/L [facility] Base Excess, Arterial -3.1 (L) -2.0 - 3.0 mmol/L [facility] Patient Temperature 36.9 C [facility] FIO2 60.0 % [facility] Specimen Blood, Arterial Performing Organization Address City/[facility] [place] [facility] Centercode Phone Number [address] [address] [place] Potassium-Stat Lab (12/17/2018 7:30 PM RESIDENT PHYSICIAN)Only the most recent of7 resultswithin the time period is included. Potassium 4.2 3.6 - 5.5 meq/L [facility] Specimen Blood, Arterial Performing Organization Address City/[facility]/Zipcode Phone Number [address] [address] CENTER Sodium Na-Stat Lab (12/17/2018 7:30 PM RESIDENT PHYSICIAN)Only the most recent of7 resultswithin the time period is included. Sodium 139 135 - 148 meq/L [facility] Specimen Blood, Arterial Performing Organization Address [facility] [place] [facility] Centercode Phone Number [address] [address] CENTER Glucose-Stat Lab (12/17/2018 7:30 PM RESIDENT PHYSICIAN)Only the most recent of7 resultswithin the time period is included. Glucose 136 (H) 70 - 110 mg/dL [facility] Specimen Blood, Arterial Performing Organization Address [facility] [place] [facility] Centercoil Phone Number [address] [address] [place] Oxygen saturation, measured (12/17/2018 7:30 PM RESIDENT PHYSICIAN)Only the most recent of3 resultswithin the time period is included. O2 Saturation (Measured) 61.6 % [facility] Specimen Blood Performing Organization Address [facility] [place] [facility] Centercoil Phone Number [address] [address] [place] HGB/HCT (H&H)-Stat Lab (12/17/2018 7:30 PM RESIDENT PHYSICIAN)Only the most recent of7 resultswithin the time period is included. Hemoglobin 10.8 (L) 12.0 - 15.0 g/dL [facility] Hematocrit 32.0 (L) 36.0 - 45.0 % [facility] Specimen Blood, Arterial Performing Organization Address [facility] Phone Number [address] [address] [phone] [place] Calcium, Ionized (12/17/2018 7:30 PM RESIDENT PHYSICIAN)Only the most recent of6 resultswithin the time period is included. Calcium, Ion 1.12 1.12 - 1.27 mmol/L [facility] pH, Blood 7.48 [facility] Specimen Blood Performing Organization Address [facility] [place] [facility] Centerco[facility] Phone Number [address] [address] [phone] [place] Lactic acid, arterial, whole blood (12/17/2018 7:30 PM RESIDENT PHYSICIAN)Only the most recent of4 resultswithin the time period is included. Lactate, Art 1.5 0.5 - 2.2 mmol/L [facility] Specimen Blood, Arterial Performing Organization Address City/[facility]/Zipcode Phone Number [address] [address] [place] Manual Differential (12/17/2018 12:01 PM RESIDENT PHYSICIAN) Total Counted [facility] WBC Morphology Normal [facility] Platelet Morphology Normal [facility] Polychromasia 1+ few [facility] Anisocytosis 1+ few [facility] Specimen Blood Performing Organization Address [facility] [place] [facility] Centerco[facility] Phone Number [address] [address] CENTER Prothrombin time/INR (12/17/2018 12:01 PM RESIDENT PHYSICIAN)Only the most recent of3 resultswithin the time period is included. Protime 17.4 (H) 11.7 - 14.7 seconds [facility] INR 1.4 <=5.9 [facility] Specimen Blood Narrative Performed At RECOMMENDED COUMADIN/WARFARIN INR THERAPY [facility] RANGES STANDARD DOSE: 2.0 - 3.0 Includes: PROPHYLAXIS for venous thrombosis, systemic embolization; TREATMENT for venous thrombosis and/or pulmonary embolus. HIGH RISK: Target INR is 2.5-3.5 for patients with mechanical heart valves. Performing Organization Address City/[facility] [place] [facility] Centercode Phone Number [address] [address] [phone] CENTER Fibrinogen (12/17/2018 12:01 PM RESIDENT PHYSICIAN) Fibrinogen 238 225 - 434 mg/dl [facility] Specimen Blood Performing Organization Address City/[facility] [place] [facility] Centercode Phone Number [address] [address] CENTER Transfuse Leuko-Red RBC (12/17/2018 9:22 AM RESIDENT PHYSICIAN)Only the most recent of2 resultswithin the time period is included.SHADY (12/17/2018 8:24 AM RESIDENT PHYSICIAN) Narrative Performed At Geo Alarcon MD 12/17/2018 10:53 AM SHADY Date: 12/17/2018 8:24 AM Sex: Female Location: OR Requesting Physician: Geo Farfan MD Examiner: Geo Alarcon MD Ma, MD Dony IntubatedSedated Patient screened for esoph disease: Yes Insertion: easy Probe Type: multiplane Modalities: 2D, CWD and PWD Pre Intervention Summary: Aorta: No aneurysm, no dissection, no mobile plaques, grade 4 atheroma distal arch AV: trileaflet morphology, no aortic stenosis, mild central aortic regurgitation LV: normal chamber size , no LVH, normal systolic function (EF 60% by qualitative assessment), no RWMA, no thrombus MV: normal morphology, mild mitral regurgitation, no mitral stenosis LA: no JAMES thrombus, normal size and function PV: limited visualization RV: normal sized chamber, grossly normal function, no thrombus TV: normal morphology, trace tricuspid regurgitation RA: no thrombus no PFO by color doppler flow All findings communicated to surgical team. Post Intervention Summary:S/p ACB x3 Preserved biventricular function. Trace AI. No aortic dissection. Procedure Note Geo Alarcon MD - 12/17/2018 8:24 AM RESIDENT PHYSICIAN SHADY Date: 12/17/2018 8:24 AM Sex: Female Location: OR Requesting Physician: Geo Farfan MD Examiner: Geo Alarcon MD Ma, MD Dony Intubated Sedated Patient screened for esoph disease: Yes Insertion: easy Probe Type: multiplane Modalities: 2D, CWD and PWD Pre Intervention Summary: Aorta: No aneurysm, no dissection, no mobile plaques , grade 4 atheroma distal arch AV: trileaflet morphology, no aortic stenosis, mild central aortic regurgitation LV: normal chamber size , no LVH, normal systolic function (EF 60% by qualitative assessment), no RWMA, no thrombus MV: normal morphology, mild mitral regurgitation, no mitral stenosis LA: no JAMES thrombus, normal size and function PV: limited visualization RV: normal sized chamber, grossly normal function, no thrombus TV: normal morphology, trace tricuspid regurgitation RA: no thrombus no PFO by color doppler flow All findings communicated to surgical team. Post Intervention Summary: S/p ACB x3 Preserved biventricular function. Trace AI. No aortic dissection. POC ACTIVATED CLOTTING TIME (12/17/2018 7:19 AM RESIDENT PHYSICIAN)Only the most recent of6 resultswithin the time period is included. Activated Clotting Time 103Comment: TESTED AT sec [address] [address] Specimen Blood Performing Organization Address [facility]/[place] [facility] Centercode Phone Number [address] [address] CENTER Type and screen, automated (12/16/2018 4:29 PM RESIDENT PHYSICIAN)Only the most recent of2 resultswithin the time period is included. ABO/RH AUTOMATED (BEAKER) O POSITIVE [facility] Ab Scrn NEGATIVE [facility] Specimen Blood Performing Organization Address [facility] [place] [facility] Centercoil Phone Number [address] [address] [phone] Clostridium difficile [facility] Toxin (12/13/2018 10:45 PM RESIDENT PHYSICIAN)Only the most recent of2 resultswithin the time period is included. C. Difficle Toxin Negative Negative [facility] C. Difficile [facility] Antigen Positive (A)Comment: C. Negative [facility] difficile present but toxin [facility] not detected. Indicates colonization with non-toxigenic strain or level of toxin below detectable levels. No need for enteric isolation. Treatment is rarely needed (only when strong clinical suspicion for Clostridium difficile infection) Specimen Stool Narrative Performed At Testing performed by [employer] [facility] Assay.For [facility], published sensitivity of the assay is 98.7% compared to cytotoxicity testing.For Toxin AB, published sensitivity is 87.8% and specificity 99.4% compared to cytotoxicity testing. Verification of kit performance was done by the [facility] Microbiology Lab prior to clinical use. Performing Organization Address [facility] [place] [facility] Centercode Phone Number [address] [address] [place] Occult blood, stool (12/13/2018 10:45 PM RESIDENT PHYSICIAN) Occult blood Negative Negative [facility] Specimen Stool Performing Organization Address [facility] [place] [facility] Center[facility] Phone Number [place] [phone] [place] [address] [phone] [place] Troponin I (12/09/2018 11:51 PM RESIDENT PHYSICIAN)Only the most recent of3 resultswithin the time period is included. Troponin I 0.03 0.00 - 0.03 ng/mL [facility] Specimen Blood Narrative Performed At Troponin I (TnI) levels must be interpreted [facility] in the context of the presenting symptoms and the clinical findings. Elevated TnI levels indicate myocardial damage, but are not specific for ischemic heart disease. Elevated TnI levels are seen in patients with other cardiac conditions (including myocarditis and congestive heart failure), and slight TnI elevations occur in patients with other conditions, including sepsis, renal failure, acidosis, acute neurological disease, and persistent tachyarrhythmia. Performing Organization Address [facility] Phone Number [address] [address] [place] Hepatic function panel (12/01/2018 5:00 AM RESIDENT PHYSICIAN) Protein, Total 6.6 6.0 - 8.3 gm/dL [facility] Albumin 3.2 (L) 3.5 - 5.0 g/dL [facility] Total Bilirubin 0.6 0.2 - 1.2 mg/dL [facility] Bilirubin, Direct 0.3 0.1 - 0.5 mg/dL [facility] Alkaline Phosphatase 56 40 - 150 U/L [facility] AST 35 (H) 5 - 34 U/L [facility] ALT 32 6 - 55 U/L [facility] Specimen Blood Performing Organization Address [facility]/State/Zipcode Phone Number [facility] [address] [place], [place] [address] [phone] [place] Hemoglobin A1c (11/30/2018 5:46 AM RESIDENT PHYSICIAN) Hemoglobin A1C 7.2 (H) 4.3 - 6.1 % [facility] Specimen Blood Performing Organization Address City/[facility]/Zipcode Phone Number [address] [address] [phone] [place] Lipid panel (11/30/2018 5:46 AM RESIDENT PHYSICIAN) Triglycerides 120 mg/dL [facility] Cholesterol 123 mg/dL [facility] HDL 21 mg/dL [facility] LDL Calculated 78 mg/dL [facility] Specimen Blood Narrative Performed At Triglyceride Reference Range: [facility] Low Risk <150 [id number] High Risk 200-499 Very High Risk>=500 Cholesterol Reference Range: Low Risk <200 [id number] High Risk>240 HDL Cholesterol Reference Range: Low Risk >=60 High Risk <40 LDL Cholesterol Reference Range: Optimal<100 Near [id number] [id number] Dnhy651-107 Very High >=190 Performing Organization Address City/State/Zipcode Phone Number [address] [phone] [place] Tissue Exam (11/28/2018 9:01 AM RESIDENT PHYSICIAN) Case Report Surgical Pathology Report Case: [id number] [facility] Authorizing Provider:Geo Farfan, Collected: 11/28/2018 0901 [facility] Ordering Location: [facility] ANTOINETTE Received: 11/28/2018 1029 [employer] Pathologist: Reese Soares MD Specimen:Plaque, Right Carotid DIAGNOSIS ARTERY, RIGHT CAROTID, ENDARTERECTOMY: [facility] CALCIFIC ATHEROSCLEROTIC PLAQUE [facility] Signing Pathologist Direct Phone Line: [phone] CPT Code(s) 63624; [address] [facility] CLINICAL HISTORY Carotid stenosis [facility] SPECIMEN SOURCE Right carotid plaque [facility] GROSS DESCRIPTION Specimen is received in [facility] saline labeled with the [facility] patient's information and labeled "right carotid plaque" and consists of three irregular fragments of calcified azar-red tissue measuring 2.5 x 2 x 0[address] Construction Inspector sections are submitted in A1 for decalcification. CG/ew MICROSCOPIC DESCRIPTION PERFORMED [facility] Specimen Tissue Performing Organization Address City/[facility]/Zipcode Phone Number [facility] [address] [place] [address] [phone] CENTER ABORH, manual (11/28/2018 8:16 AM RESIDENT PHYSICIAN) ABO Grouping O [facility] Rh Factor Positive [facility] Specimen Blood Performing Organization Address City/[facility]/[place] [facility] Centercode Phone Number [address] [address] Comprehensive metabolic panel (11/28/2018 6:47 AM RESIDENT PHYSICIAN) Protein, Total 7.4Comment: Specimen 6.0 - 8.3 gm/dL [facility] slightly hemolyzed [facility] Albumin 3.6Comment: Specimen 3.5 - 5.0 g/dL [facility] [facility] slightly hemolyzed [facility] Alkaline Phosphatase 77 40 - 150 U/L [facility] Total Bilirubin 0.8Comment: Specimen 0.2 - 1.2 mg/dL [facility] slightly hemolyzed [facility] Sodium 140 136 - 145 meq/L [facility] Potassium 4.2Comment: Specimen 3.5 - 5.1 meq/L [facility] slightly hemolyzed [facility] Chloride 106 98 - 107 meq/L [facility] CO2 24 22 - 29 meq/L [facility] BUN 41 (H) 7 - 21 mg/dL [facility] Creatinine 1.76 (H)Comment: 0.57 - 1.25 mg/dL [facility] Specimen slightly [facility] hemolyzed Glucose 98 70 - 105 mg/dL [facility] Calcium 9.9 8.4 - 10.2 mg/dL [facility] AST 143 (H)Comment: Specimen 5 - 34 U/L [facility] slightly hemolyzed [facility] ALT 112 (H)Comment: Specimen 6 - 55 U/L [facility] slightly hemolyzed [facility] EGFR 34Comment: ESTIMATED GFR mL/min/1.73 sq m [facility] IS NOT ACCURATE [facility] CREATININE CLEARANCE IN PREDICTING GLOMERULAR FILTRATION RATE. ESTIMATED GFR IS NOT APPLICABLE FOR DIALYSIS PATIENTS. Specimen Blood Performing Organization Address City/State/Zipcode Phone Number [facility] [address] [place] [address] CENTER after 04/24/2018 Insurance Payer Benefit Plan / Subscriber ID Type Phone Address Group [facility] - UNITED MEDICARE xxxxxxxxx MEDICARE MGD CARE HMO MEDICAID - MEDICAID [facility] xxxxxxxxx Medicaid Contracted MGD CARE PLAN Advance Directives For more information, please contact:[address] [phone] Code Status Date Activated Date Inactivated Comments Full Code 12/17/2018 7:11 AM This code status was determined by: Patient Full Code 12/16/2018 1:38 PM 12/17/2018 7:11 AM This code status was determined by: Patient Full Code 11/28/2018 6:09 AM 12/16/2018 1:38 PM This code status was determined by: Patient
--- OUTSIDE RECORDS SUMMARY | 2019-04-25 14:35 | XMS REPORT ---
:1940 [facility] Address [address] [place] [address] Care Team Providers Name Role Phone CHIO FREY Unavailable Unavailable Problems This patient has no known problems. Allergies, Adverse Reactions, Alerts This patient has no known allergies or adverse reactions. Medications This patient has no known medications. Results Test Description Test Time Test Comments Text Results Atomic Results Result Comments POCT-GLUCOSE METER 2018-12-27 13:28:00 Test Item Value Reference Range Comments POC-GLUCOSE METER (BEAKER) (test 153 mg/dL 70-110 TESTED AT [address] ipmu=6595) [facility] [address] POCT-GLUCOSE [id number] 09:00:00 Test Item Value Reference Range Comments POC-GLUCOSE METER (BEAKER) 193 mg/dL 70-110 TESTED AT [address] (test zjxn=4645) [facility] [address] [id number] 06:55:00 Test Item Value Reference Range Comments MAGNESIUM (BEAKER) (test wvet=438) 1.5 mg/dL 1.6-2.6 BASIC METABOLIC [id number] 06:55:00 Test Item Value Reference Range Comments SODIUM (BEAKER) (test 141 meq/L 136-145 stup=436) POTASSIUM (BEAKER) (test 4.9 meq/L 3.5-5.1 pfvj=238) CHLORIDE (BEAKER) (test 105 meq/L 98-107 psll=602) CO2 (BEAKER) (test 28 meq/L 22-29 gcft=344) BLOOD UREA NITROGEN 11 mg/dL 7-21 (BEAKER) (test wgkt=417) CREATININE (BEAKER) (test 0.88 mg/dL 0.57-1.25 tvtn=949) GLUCOSE RANDOM (BEAKER) 132 mg/dL 70-105 (test uawi=256) CALCIUM (BEAKER) (test 9.9 mg/dL 8.4-10.2 tezp=182) EGFR (BEAKER) (test 75 mL/min/1.73 sq m ESTIMATED GFR IS NOT wlix=2148) ACCURATE CREATININE CLEARANCE IN PREDICTING GLOMERULAR FILTRATION RATE. ESTIMATED GFR IS NOT APPLICABLE FOR DIALYSIS PATIENTS. CBC W/PLT COUNT & AUTO [id number] 06:25:00 Test Item Value Reference Range Comments WHITE BLOOD CELL COUNT (BEAKER) (test pxzf=446) 7.1 K/ L 3.5-10.5 RED BLOOD CELL COUNT (BEAKER) (test fgyw=820) 2.97 M/ L 3.93-5.22 HEMOGLOBIN (BEAKER) (test vkcf=482) 9.2 GM/DL 11.2-15.7 HEMATOCRIT (BEAKER) (test dydm=217) 30.1 % 34.1-44.9 MEAN CORPUSCULAR VOLUME (BEAKER) (test ploj=559) 101.3 fL 79.4-94.8 MEAN CORPUSCULAR HEMOGLOBIN (BEAKER) (test 31.0 pg 25.6-32.2 ciib=112) MEAN CORPUSCULAR HEMOGLOBIN CONC (BEAKER) (test 30.6 GM/DL 32.2-35.5 ztky=206) RED CELL DISTRIBUTION WIDTH (BEAKER) (test 17.2 % 11.7-14.4 wydn=537) PLATELET COUNT (BEAKER) (test mkcd=435) 292 K/CU MM 150-450 MEAN PLATELET VOLUME (BEAKER) (test drdh=058) 11.5 fL 9.4-12.3 NUCLEATED RED BLOOD CELLS (BEAKER) (test 0 /100 WBC 0-0 odws=239) NEUTROPHILS RELATIVE PERCENT (BEAKER) (test 71 % nwnu=573) LYMPHOCYTES RELATIVE PERCENT (BEAKER) (test 19 % ftcj=862) MONOCYTES RELATIVE PERCENT (BEAKER) (test 7 % aunx=676) EOSINOPHILS RELATIVE PERCENT (BEAKER) (test 2 % hndk=256) BASOPHILS RELATIVE PERCENT (BEAKER) (test 1 % bzpr=499) NEUTROPHILS ABSOLUTE COUNT (BEAKER) (test 5.01 K/ L 1.56-6.13 khor=941) LYMPHOCYTES ABSOLUTE COUNT (BEAKER) (test 1.35 K/ L 1.18-3.74 oygg=913) MONOCYTES ABSOLUTE COUNT (BEAKER) (test 0.50 K/ L 0.24-0.36 hxvb=263) EOSINOPHILS ABSOLUTE COUNT (BEAKER) (test 0.11 K/ L 0.04-0.36 iwqo=001) BASOPHILS ABSOLUTE COUNT (BEAKER) (test 0.05 K/ L 0.01-0.08 jyie=279) IMMATURE GRANULOCYTES-RELATIVE PERCENT (BEAKER) 1 % 0-1 (test mntb=7043) POCT-GLUCOSE [id number] 23:25:00 Test Item Value Reference Range Comments POC-GLUCOSE METER (BEAKER) 171 mg/dL 70-110 TESTED AT [address] (test wjhu=8348) [facility] [address] POCT-GLUCOSE [id number] 18:08:00 Test Item Value Reference Range Comments POC-GLUCOSE METER (BEAKER) 138 mg/dL 70-110 TESTED AT [address] (test turq=0895) [place] [id number] POCT-GLUCOSE [id number] 13:05:00 Test Item Value Reference Range Comments POC-GLUCOSE METER (BEAKER) 140 mg/dL 70-110 TESTED AT [address] (test lqdh=3388) [facility] [address] POCT-GLUCOSE [id number] 08:57:00 Test Item Value Reference Range Comments POC-GLUCOSE METER (BEAKER) 180 mg/dL 70-110 TESTED AT [address] (test gmkv=6854) [facility] [address] POCT-GLUCOSE [id number] 21:30:00 Test Item Value Reference Range Comments POC-GLUCOSE METER (BEAKER) 212 mg/dL 70-110 TESTED AT [address] (test nlpx=1811) [facility] [address] POCT-GLUCOSE [id number] 17:26:00 Test Item Value Reference Range Comments POC-GLUCOSE METER (BEAKER) 117 mg/dL 70-110 TESTED AT [address] (test qfnv=7246) [facility] [address] POCT-GLUCOSE [id number] 13:12:00 Test Item Value Reference Range Comments POC-GLUCOSE METER (BEAKER) 166 mg/dL 70-110 TESTED AT [address] (test ruyk=0466) [facility] [address] URIC [id number] 13:02:00 Test Item Value Reference Range Comments URIC ACID (BEAKER) (test sqsa=549) 5.9 mg/dL 2.6-7.2 POCT-GLUCOSE [id number] 09:40:00 Test Item Value Reference Range Comments POC-GLUCOSE METER (BEAKER) 175 mg/dL 70-110 TESTED AT [place] [id number] [facility] (test casa=0267) [place] [address] POCT-GLUCOSE [id number] 08:10:00 Test Item Value Reference Range Comments POC-GLUCOSE METER (BEAKER) 175 mg/dL 70-110 TESTED AT [address] (test zgeq=6881) [place] [address] [id number] 05:15:00 Test Item Value Reference Range Comments MAGNESIUM (BEAKER) (test dfan=938) 1.8 mg/dL 1.6-2.6 BASIC METABOLIC [id number] 05:15:00 Test Item Value Reference Range Comments SODIUM (BEAKER) (test 140 meq/L 136-145 upiu=430) POTASSIUM (BEAKER) (test 4.2 meq/L 3.5-5.1 mlua=312) CHLORIDE (BEAKER) (test 105 meq/L 98-107 parc=839) CO2 (BEAKER) (test 29 meq/L 22-29 dktn=972) BLOOD UREA NITROGEN 11 mg/dL 7-21 (BEAKER) (test hulk=361) CREATININE (BEAKER) (test 0.77 mg/dL 0.57-1.25 omyv=150) GLUCOSE RANDOM (BEAKER) 110 mg/dL 70-105 (test romj=939) CALCIUM (BEAKER) (test 9.5 mg/dL 8.4-10.2 bmjk=856) EGFR (BEAKER) (test 88 mL/min/1.73 sq m ESTIMATED GFR IS NOT yzse=9436) ACCURATE CREATININE CLEARANCE IN PREDICTING GLOMERULAR FILTRATION RATE. ESTIMATED GFR IS NOT APPLICABLE FOR DIALYSIS PATIENTS. CBC W/PLT COUNT & AUTO [id number] 04:56:00 Test Item Value Reference Range Comments WHITE BLOOD CELL COUNT (BEAKER) (test qtws=044) 6.3 K/ L 3.5-10.5 RED BLOOD CELL COUNT (BEAKER) (test hcgz=135) 2.85 M/ L 3.93-5.22 HEMOGLOBIN (BEAKER) (test mlgl=407) 8.8 GM/DL 11.2-15.7 HEMATOCRIT (BEAKER) (test dnwl=546) 28.6 % 34.1-44.9 MEAN CORPUSCULAR VOLUME (BEAKER) (test ddqt=331) 100.4 fL 79.4-94.8 MEAN CORPUSCULAR HEMOGLOBIN (BEAKER) (test 30.9 pg 25.6-32.2 zjva=730) MEAN CORPUSCULAR HEMOGLOBIN CONC (BEAKER) (test 30.8 GM/DL 32.2-35.5 wozi=739) RED CELL DISTRIBUTION WIDTH (BEAKER) (test 17.0 % 11.7-14.4 plvk=728) PLATELET COUNT (BEAKER) (test bbwm=712) 214 K/CU MM 150-450 MEAN PLATELET VOLUME (BEAKER) (test tihl=009) 11.6 fL 9.4-12.3 NUCLEATED RED BLOOD CELLS (BEAKER) (test 0 /100 WBC 0-0 vqfn=973) NEUTROPHILS RELATIVE PERCENT (BEAKER) (test 68 % ygzd=137) LYMPHOCYTES RELATIVE PERCENT (BEAKER) (test 19 % gyvs=326) MONOCYTES RELATIVE PERCENT (BEAKER) (test 9 % ovny=042) EOSINOPHILS RELATIVE PERCENT (BEAKER) (test 2 % wojg=208) BASOPHILS RELATIVE PERCENT (BEAKER) (test 1 % dvae=890) NEUTROPHILS ABSOLUTE COUNT (BEAKER) (test 4.27 K/ L 1.56-6.13 gijy=894) LYMPHOCYTES ABSOLUTE COUNT (BEAKER) (test 1.20 K/ L 1.18-3.74 urnu=313) MONOCYTES ABSOLUTE COUNT (BEAKER) (test 0.53 K/ L 0.24-0.36 ypud=900) EOSINOPHILS ABSOLUTE COUNT (BEAKER) (test 0.15 K/ L 0.04-0.36 ppml=983) BASOPHILS ABSOLUTE COUNT (BEAKER) (test 0.04 K/ L 0.01-0.08 zxxv=579) IMMATURE GRANULOCYTES-RELATIVE PERCENT (BEAKER) 1 % 0-1 (test xbeo=1688) POCT-GLUCOSE [id number] 21:26:00 Test Item Value Reference Range Comments POC-GLUCOSE METER (BEAKER) 162 mg/dL 70-110 TESTED AT [address] (test zlbr=6409) [place] [id number] POCT-GLUCOSE [id number] 19:38:00 Test Item Value Reference Range Comments POC-GLUCOSE METER (BEAKER) 194 mg/dL 70-110 TESTED AT [address] (test avoh=4704) [place] [address] POCT-GLUCOSE [id number] 13:05:00 Test Item Value Reference Range Comments POC-GLUCOSE METER (BEAKER) 177 mg/dL 70-110 TESTED AT [address] (test dixh=6926) [place] [address] POCT-GLUCOSE [id number] 08:48:00 Test Item Value Reference Range Comments POC-GLUCOSE METER (BEAKER) 140 mg/dL 70-110 TESTED AT [address] (test ywug=7039) [place] [address] POCT-GLUCOSE [id number] 21:57:00 Test Item Value Reference Range Comments POC-GLUCOSE METER (BEAKER) 160 mg/dL 70-110 TESTED AT [address] (test rvoe=1219) [place] [address] POCT-GLUCOSE [id number] 17:35:00 Test Item Value Reference Range Comments POC-GLUCOSE METER (BEAKER) 107 mg/dL 70-110 TESTED AT [address] (test pkxd=6414) [place] [address] POCT-GLUCOSE [id number] 13:02:00 Test Item Value Reference Range Comments POC-GLUCOSE METER (BEAKER) 167 mg/dL 70-110 TESTED AT [address] (test clai=9579) [place] [address] POCT-GLUCOSE [id number] 08:39:00 Test Item Value Reference Range Comments POC-GLUCOSE METER (BEAKER) 172 mg/dL 70-110 TESTED AT [address] (test otuq=1241) [place] [address] [id number] 06:10:00 Test Item Value Reference Range Comments MAGNESIUM (BEAKER) (test kxcj=763) 1.5 mg/dL 1.6-2.6 BASIC METABOLIC [id number] 06:10:00 Test Item Value Reference Range Comments SODIUM (BEAKER) (test 140 meq/L 136-145 nczv=017) POTASSIUM (BEAKER) (test 3.9 meq/L 3.5-5.1 nvve=915) CHLORIDE (BEAKER) (test 105 meq/L 98-107 edcb=950) CO2 (BEAKER) (test 28 meq/L 22-29 cbsx=275) BLOOD UREA NITROGEN 12 mg/dL 7-21 (BEAKER) (test ilnu=264) CREATININE (BEAKER) (test 0.73 mg/dL 0.57-1.25 ihfv=733) GLUCOSE RANDOM (BEAKER) 102 mg/dL 70-105 (test gwoe=009) CALCIUM (BEAKER) (test 9.0 mg/dL 8.4-10.2 hetu=087) EGFR (BEAKER) (test 93 mL/min/1.73 sq m ESTIMATED GFR IS NOT xavo=2200) ACCURATE CREATININE CLEARANCE IN PREDICTING GLOMERULAR FILTRATION RATE. ESTIMATED GFR IS NOT APPLICABLE FOR DIALYSIS PATIENTS. CBC W/PLT COUNT & AUTO [id number] 05:12:00 Test Item Value Reference Range Comments WHITE BLOOD CELL COUNT (BEAKER) (test mvvh=938) 8.0 K/ L 3.5-10.5 RED BLOOD CELL COUNT (BEAKER) (test lzwf=460) 2.70 M/ L 3.93-5.22 HEMOGLOBIN (BEAKER) (test pmvj=741) 8.5 GM/DL 11.2-15.7 HEMATOCRIT (BEAKER) (test pbcm=670) 27.2 % 34.1-44.9 MEAN CORPUSCULAR VOLUME (BEAKER) (test mcaw=164) 100.7 fL 79.4-94.8 MEAN CORPUSCULAR HEMOGLOBIN (BEAKER) (test 31.5 pg 25.6-32.2 pvra=357) MEAN CORPUSCULAR HEMOGLOBIN CONC (BEAKER) (test 31.3 GM/DL 32.2-35.5 xjdo=810) RED CELL DISTRIBUTION WIDTH (BEAKER) (test 16.9 % 11.7-14.4 vdns=362) PLATELET COUNT (BEAKER) (test laum=006) 146 K/CU MM 150-450 MEAN PLATELET VOLUME (BEAKER) (test mghz=765) 12.2 fL 9.4-12.3 NUCLEATED RED BLOOD CELLS (BEAKER) (test 0 /100 WBC 0-0 jsha=389) NEUTROPHILS RELATIVE PERCENT (BEAKER) (test 75 % pvmv=387) LYMPHOCYTES RELATIVE PERCENT (BEAKER) (test 15 % nvhr=728) MONOCYTES RELATIVE PERCENT (BEAKER) (test 7 % aoco=738) EOSINOPHILS RELATIVE PERCENT (BEAKER) (test 2 % dnxj=154) BASOPHILS RELATIVE PERCENT (BEAKER) (test 0 % ifrg=320) NEUTROPHILS ABSOLUTE COUNT (BEAKER) (test 6.01 K/ L 1.56-6.13 xftg=428) LYMPHOCYTES ABSOLUTE COUNT (BEAKER) (test 1.16 K/ L 1.18-3.74 ytos=159) MONOCYTES ABSOLUTE COUNT (BEAKER) (test 0.59 K/ L 0.24-0.36 alpn=599) EOSINOPHILS ABSOLUTE COUNT (BEAKER) (test 0.12 K/ L 0.04-0.36 czvh=452) BASOPHILS ABSOLUTE COUNT (BEAKER) (test 0.03 K/ L 0.01-0.08 rtrv=771) IMMATURE GRANULOCYTES-RELATIVE PERCENT (BEAKER) 1 % 0-1 (test qtro=0276) POCT-GLUCOSE [id number] 22:03:00 Test Item Value Reference Range Comments POC-GLUCOSE METER (BEAKER) 208 mg/dL 70-110 TESTED AT [address] (test qrev=1459) [place] [address] POCT-GLUCOSE [id number] 18:20:00 Test Item Value Reference Range Comments POC-GLUCOSE METER (BEAKER) 146 mg/dL 70-110 TESTED AT [address] (test pmsx=2167) [place] [address] POCT-GLUCOSE [id number] 12:53:00 Test Item Value Reference Range Comments POC-GLUCOSE METER (BEAKER) 168 mg/dL 70-110 TESTED AT [address] (test jfna=7435) [place] [address] POCT-GLUCOSE [id number] 09:31:00 Test Item Value Reference Range Comments POC-GLUCOSE METER (BEAKER) 192 mg/dL 70-110 TESTED AT [address] (test rnmn=6657) [place] [address] [id number] 07:27:00 Test Item Value Reference Range Comments MAGNESIUM (BEAKER) (test wllr=823) 1.6 mg/dL 1.6-2.6 BASIC METABOLIC [id number] 07:27:00 Test Item Value Reference Range Comments SODIUM (BEAKER) (test 140 meq/L 136-145 ppqx=293) POTASSIUM (BEAKER) (test 4.4 meq/L 3.5-5.1 gvur=475) CHLORIDE (BEAKER) (test 106 meq/L 98-107 xmvm=282) CO2 (BEAKER) (test 26 meq/L 22-29 hvec=618) BLOOD UREA NITROGEN 15 mg/dL 7-21 (BEAKER) (test usta=486) CREATININE (BEAKER) (test 0.78 mg/dL 0.57-1.25 nvwl=368) GLUCOSE RANDOM (BEAKER) 128 mg/dL 70-105 (test vird=511) CALCIUM (BEAKER) (test 9.3 mg/dL 8.4-10.2 bwyo=461) EGFR (BEAKER) (test 86 mL/min/1.73 sq m ESTIMATED GFR IS NOT hieo=0177) ACCURATE CREATININE CLEARANCE IN PREDICTING GLOMERULAR FILTRATION RATE. ESTIMATED GFR IS NOT APPLICABLE FOR DIALYSIS PATIENTS. CBC W/PLT COUNT & AUTO [id number] 06:06:00 Test Item Value Reference Range Comments WHITE BLOOD CELL COUNT (BEAKER) (test dacv=330) 8.0 K/ L 3.5-10.5 RED BLOOD CELL COUNT (BEAKER) (test aqcc=323) 2.86 M/ L 3.93-5.22 HEMOGLOBIN (BEAKER) (test wuen=979) 8.9 GM/DL 11.2-15.7 HEMATOCRIT (BEAKER) (test prcz=673) 28.9 % 34.1-44.9 MEAN CORPUSCULAR VOLUME (BEAKER) (test pthr=896) 101.0 fL 79.4-94.8 MEAN CORPUSCULAR HEMOGLOBIN (BEAKER) (test 31.1 pg 25.6-32.2 ryro=392) MEAN CORPUSCULAR HEMOGLOBIN CONC (BEAKER) (test 30.8 GM/DL 32.2-35.5 ahmq=442) RED CELL DISTRIBUTION WIDTH (BEAKER) (test 16.8 % 11.7-14.4 gdgk=598) PLATELET COUNT (BEAKER) (test pfcn=312) 142 K/CU MM 150-450 MEAN PLATELET VOLUME (BEAKER) (test jkjh=878) 12.5 fL 9.4-12.3 NUCLEATED RED BLOOD CELLS (BEAKER) (test 0 /100 WBC 0-0 wjee=359) NEUTROPHILS RELATIVE PERCENT (BEAKER) (test 74 % pxmk=925) LYMPHOCYTES RELATIVE PERCENT (BEAKER) (test 16 % ftze=710) MONOCYTES RELATIVE PERCENT (BEAKER) (test 7 % aejn=869) EOSINOPHILS RELATIVE PERCENT (BEAKER) (test 2 % gtkg=464) BASOPHILS RELATIVE PERCENT (BEAKER) (test 0 % cmzf=529) NEUTROPHILS ABSOLUTE COUNT (BEAKER) (test 5.96 K/ L 1.56-6.13 fbyt=068) LYMPHOCYTES ABSOLUTE COUNT (BEAKER) (test 1.24 K/ L 1.18-3.74 uopg=813) MONOCYTES ABSOLUTE COUNT (BEAKER) (test 0.58 K/ L 0.24-0.36 rllm=941) EOSINOPHILS ABSOLUTE COUNT (BEAKER) (test 0.13 K/ L 0.04-0.36 tlln=946) BASOPHILS ABSOLUTE COUNT (BEAKER) (test 0.03 K/ L 0.01-0.08 jlwr=228) IMMATURE GRANULOCYTES-RELATIVE PERCENT (BEAKER) 1 % 0-1 (test wmvu=8301) POCT-GLUCOSE [id number] 22:49:00 Test Item Value Reference Range Comments POC-GLUCOSE METER (BEAKER) 214 mg/dL 70-110 TESTED AT [address] (test thiw=4988) [place] [address] POCT-GLUCOSE [id number] 22:48:00 Test Item Value Reference Range Comments POC-GLUCOSE METER (BEAKER) 247 mg/dL 70-110 TESTED AT [address] (test ghqb=3183) [place] [id number] POCT-GLUCOSE [id number] 17:37:00 Test Item Value Reference Range Comments POC-GLUCOSE METER (BEAKER) 185 mg/dL 70-110 TESTED AT [address] (test bzgq=6681) [place] [address] [id number] 15:08:00 Test Item Value Reference Range Comments MAGNESIUM (BEAKER) (test wbwp=497) 1.7 mg/dL 1.6-2.6 BASIC METABOLIC [id number] 15:08:00 Test Item Value Reference Range Comments SODIUM (BEAKER) (test 141 meq/L 136-145 zivy=878) POTASSIUM (BEAKER) (test 4.1 meq/L 3.5-5.1 fykc=318) CHLORIDE (BEAKER) (test 108 meq/L 98-107 xmzs=468) CO2 (BEAKER) (test 23 meq/L 22-29 tbtb=846) BLOOD UREA NITROGEN 17 mg/dL 7-21 (BEAKER) (test opim=547) CREATININE (BEAKER) (test 0.87 mg/dL 0.57-1.25 upzc=321) GLUCOSE RANDOM (BEAKER) 143 mg/dL 70-105 (test tvye=588) CALCIUM (BEAKER) (test 9.5 mg/dL 8.4-10.2 invb=834) EGFR (BEAKER) (test 76 mL/min/1.73 sq m ESTIMATED GFR IS NOT fvxr=6261) ACCURATE CREATININE CLEARANCE IN PREDICTING GLOMERULAR FILTRATION RATE. ESTIMATED GFR IS NOT APPLICABLE FOR DIALYSIS PATIENTS. CBC (HEMOGRAM ONLY)2018-12-21 15:00:00 Test Item Value Reference Range Comments WHITE BLOOD CELL COUNT (BEAKER) (test iofu=342) 9.0 K/ L 3.5-10.5 RED BLOOD CELL COUNT (BEAKER) (test lmwc=967) 3.01 M/ L 3.93-5.22 HEMOGLOBIN (BEAKER) (test piql=973) 9.5 GM/DL 11.2-15.7 HEMATOCRIT (BEAKER) (test llna=043) 30.6 % 34.1-44.9 MEAN CORPUSCULAR VOLUME (BEAKER) (test skip=601) 101.7 fL 79.4-94.8 MEAN CORPUSCULAR HEMOGLOBIN (BEAKER) (test 31.6 pg 25.6-32.2 htfy=861) MEAN CORPUSCULAR HEMOGLOBIN CONC (BEAKER) (test 31.0 GM/DL 32.2-35.5 etag=552) RED CELL DISTRIBUTION WIDTH (BEAKER) (test 17.0 % 11.7-14.4 mnfd=372) PLATELET COUNT (BEAKER) (test ecgj=341) 131 K/CU MM 150-450 MEAN PLATELET VOLUME (BEAKER) (test sbnk=931) 12.6 fL 9.4-12.3 NUCLEATED RED BLOOD CELLS (BEAKER) (test WBC 0-0 hdrh=387) POCT-GLUCOSE [id number] 12:49:00 Test Item Value Reference Range Comments POC-GLUCOSE METER (BEAKER) 182 mg/dL 70-110 TESTED AT [address] (test niah=4003) [place] [id number] POCT-GLUCOSE [id number] 08:49:00 Test Item Value Reference Range Comments POC-GLUCOSE METER (BEAKER) 111 mg/dL 70-110 TESTED AT [address] (test bfnk=3262) [facility] [address] POCT-GLUCOSE [id number] 22:38:00 Test Item Value Reference Range Comments POC-GLUCOSE METER (BEAKER) 225 mg/dL 70-110 TESTED AT [address] (test jutd=0019) [place] [id number] POCT-GLUCOSE [id number] 17:12:00 Test Item Value Reference Range Comments POC-GLUCOSE METER (BEAKER) 194 mg/dL 70-110 TESTED AT [address] (test lven=1772) [facility] [address] POCT-GLUCOSE [id number] 14:19:00 Test Item Value Reference Range Comments POC-GLUCOSE METER (BEAKER) 179 mg/dL 70-110 TESTED AT [address] (test lqat=1891) [facility] [address] RAD, CHEST, 1 VIEW, NON [id number] 12:01:00Reason for exam:->short of breathShould this be performed at the bedside?->YesFINAL REPORT TECHNIQUE: Frontal chest radiographs dated 12/20/2018. CLINICAL HISTORY: Shortness of breath COMPARISON STUDY: Chest radiograph dated 12/18/2018 IMPRESSION:Small leftpleural effusion with associated atelectasis. Right lung is clear. No pneumothorax. Cardiomediastinal silhouette is normal in size. No pulmonary edema. Sternotomy wires are intact and well aligned. Bones are osteopenic. Signed: Linh [place] Verified Date/Time: 12/20/2018 12:01:09 Reading Location: [facility] Radiology Reading Room POCT-GLUCOSE [id number] 10:07:00 Test Item Value Reference Range Comments POC-GLUCOSE METER (BEAKER) 169 mg/dL 70-110 TESTED AT [facility] [address] (test unfo=6026) [facility] [address] [id number] 08:40:00 Test Item Value Reference Range Comments MAGNESIUM (BEAKER) (test gprp=362) 1.5 mg/dL 1.6-2.6 BASIC METABOLIC [id number] 08:40:00 Test Item Value Reference Range Comments SODIUM (BEAKER) (test 141 meq/L 136-145 xsos=281) POTASSIUM (BEAKER) (test 4.1 meq/L 3.5-5.1 kqmk=752) CHLORIDE (BEAKER) (test 106 meq/L 98-107 sjui=798) CO2 (BEAKER) (test 28 meq/L 22-29 dqhe=040) BLOOD UREA NITROGEN 13 mg/dL 7-21 (BEAKER) (test wdrq=215) CREATININE (BEAKER) (test 0.84 mg/dL 0.57-1.25 kqni=820) GLUCOSE RANDOM (BEAKER) 142 mg/dL 70-105 (test fltv=830) CALCIUM (BEAKER) (test 9.6 mg/dL 8.4-10.2 rrqd=113) EGFR (BEAKER) (test 79 mL/min/1.73 sq m ESTIMATED GFR IS NOT wfnn=9406) ACCURATE CREATININE CLEARANCE IN PREDICTING GLOMERULAR FILTRATION RATE. ESTIMATED GFR IS NOT APPLICABLE FOR DIALYSIS PATIENTS. CBC (HEMOGRAM ONLY)2018-12-20 08:24:00 Test Item Value Reference Range Comments WHITE BLOOD CELL COUNT (BEAKER) (test pzvy=129) 9.7 K/ L 3.5-10.5 RED BLOOD CELL COUNT (BEAKER) (test eyxo=463) 3.10 M/ L 3.93-5.22 HEMOGLOBIN (BEAKER) (test sqos=311) 9.8 GM/DL 11.2-15.7 HEMATOCRIT (BEAKER) (test drsb=736) 30.8 % 34.1-44.9 MEAN CORPUSCULAR VOLUME (BEAKER) (test oxpu=507) 99.4 fL 79.4-94.8 MEAN CORPUSCULAR HEMOGLOBIN (BEAKER) (test 31.6 pg 25.6-32.2 dvkq=353) MEAN CORPUSCULAR HEMOGLOBIN CONC (BEAKER) (test 31.8 GM/DL 32.2-35.5 zwqv=315) RED CELL DISTRIBUTION WIDTH (BEAKER) (test 17.1 % 11.7-14.4 yhjb=522) PLATELET COUNT (BEAKER) (test awet=954) 110 K/CU MM 150-450 MEAN PLATELET VOLUME (BEAKER) (test btzb=292) 13.1 fL 9.4-12.3 NUCLEATED RED BLOOD CELLS (BEAKER) (test 0 /100 WBC 0-0 shqf=801) POCT-GLUCOSE [id number] 22:11:00 Test Item Value Reference Range Comments POC-GLUCOSE METER (BEAKER) 207 mg/dL 70-110 TESTED AT [address] (test ehni=1475) [place] [id number] POCT-GLUCOSE [id number] 17:51:00 Test Item Value Reference Range Comments POC-GLUCOSE METER (BEAKER) 197 mg/dL 70-110 TESTED AT [address] (test rzbm=8503) [place] [id number] POCT-GLUCOSE [id number] 12:26:00 Test Item Value Reference Range Comments POC-GLUCOSE METER (BEAKER) 238 mg/dL 70-110 TESTED AT [address] (test kdfo=8442) [place] [id number] POCT-GLUCOSE [id number] 12:00:00 Test Item Value Reference Range Comments POC-GLUCOSE METER (BEAKER) 207 mg/dL 70-110 TESTED AT [address] (test rzjf=2280) [place] [id number] 07:04:00 Test Item Value Reference Range Comments PHOSPHORUS (BEAKER) (test ftdg=840) 2.9 mg/dL 2.3-4.7 [id number] 07:04:00 Test Item Value Reference Range Comments MAGNESIUM (BEAKER) (test lmrq=129) 1.8 mg/dL 1.6-2.6 BASIC METABOLIC [id number] 07:04:00 Test Item Value Reference Range Comments SODIUM (BEAKER) (test 143 meq/L 136-145 rstz=758) POTASSIUM (BEAKER) (test 4.3 meq/L 3.5-5.1 jhzz=844) CHLORIDE (BEAKER) (test 109 meq/L 98-107 ftpt=095) CO2 (BEAKER) (test 23 meq/L 22-29 osqy=231) BLOOD UREA NITROGEN 13 mg/dL 7-21 (BEAKER) (test funi=094) CREATININE (BEAKER) (test 0.88 mg/dL 0.57-1.25 tlsm=356) GLUCOSE RANDOM (BEAKER) 168 mg/dL 70-105 (test wnxj=148) CALCIUM (BEAKER) (test 10.1 mg/dL 8.4-10.2 shlq=304) EGFR (BEAKER) (test 75 mL/min/1.73 sq m ESTIMATED GFR IS NOT czri=1553) ACCURATE CREATININE CLEARANCE IN PREDICTING GLOMERULAR FILTRATION RATE. ESTIMATED GFR IS NOT APPLICABLE FOR DIALYSIS PATIENTS. CBC (HEMOGRAM ONLY)2018-12-19 06:44:00 Test Item Value Reference Range Comments WHITE BLOOD CELL COUNT (BEAKER) (test nave=383) 13.1 K/ L 3.5-10.5 RED BLOOD CELL COUNT (BEAKER) (test ysmg=419) 3.42 M/ L 3.93-5.22 HEMOGLOBIN (BEAKER) (test rfyp=226) 10.7 GM/DL 11.2-15.7 HEMATOCRIT (BEAKER) (test jmkx=891) 33.7 % 34.1-44.9 MEAN CORPUSCULAR VOLUME (BEAKER) (test rreu=248) 98.5 fL 79.4-94.8 MEAN CORPUSCULAR HEMOGLOBIN (BEAKER) (test 31.3 pg 25.6-32.2 fzdg=806) MEAN CORPUSCULAR HEMOGLOBIN CONC (BEAKER) (test 31.8 GM/DL 32.2-35.5 wgkw=982) RED CELL DISTRIBUTION WIDTH (BEAKER) (test 17.4 % 11.7-14.4 twqx=561) PLATELET COUNT (BEAKER) (test fdee=250) 107 K/CU MM 150-450 MEAN PLATELET VOLUME (BEAKER) (test hsek=551) 12.3 fL 9.4-12.3 NUCLEATED RED BLOOD CELLS (BEAKER) (test 0 /100 WBC 0-0 srir=620) POCT-GLUCOSE [id number] 21:38:00 Test Item Value Reference Range Comments POC-GLUCOSE METER (BEAKER) 204 mg/dL 70-110 TESTED AT [address] (test hwjk=3675) [facility] [address] POCT-GLUCOSE [id number] 12:18:00 Test Item Value Reference Range Comments POC-GLUCOSE METER (BEAKER) 158 mg/dL 70-110 TESTED AT [address] (test zmvg=3386) [place] [id number] POCT-GLUCOSE [id number] 09:50:00 Test Item Value Reference Range Comments POC-GLUCOSE METER (BEAKER) 153 mg/dL 70-110 TESTED AT [address] (test tzvh=7937) [place] [id number] POCT-GLUCOSE [id number] 09:50:00 Test Item Value Reference Range Comments POC-GLUCOSE METER (BEAKER) 132 mg/dL 70-110 TESTED AT [address] (test ggdo=5665) [place] [id number] POCT-GLUCOSE [id number] 07:48:00 Test Item Value Reference Range Comments POC-GLUCOSE METER (BEAKER) 98 mg/dL 70-110 TESTED AT [address] (test vyzu=7104) [place] [id number] POCT-GLUCOSE [id number] 07:48:00 Test Item Value Reference Range Comments POC-GLUCOSE METER (BEAKER) 101 mg/dL 70-110 TESTED AT [address] (test hfup=9453) [place] [address] [id number] 05:44:00 Test Item Value Reference Range Comments PHOSPHORUS (BEAKER) (test nryw=613) 3.7 mg/dL 2.3-4.7 [id number] 05:44:00 Test Item Value Reference Range Comments MAGNESIUM (BEAKER) (test mbpc=014) 2.4 mg/dL 1.6-2.6 BASIC METABOLIC [id number] 05:44:00 Test Item Value Reference Range Comments SODIUM (BEAKER) (test 144 meq/L 136-145 zegn=988) POTASSIUM (BEAKER) (test 4.3 meq/L 3.5-5.1 xbiy=736) CHLORIDE (BEAKER) (test 115 meq/L 98-107 nmyq=755) CO2 (BEAKER) (test 21 meq/L 22-29 lbfc=261) BLOOD UREA NITROGEN 16 mg/dL 7-21 (BEAKER) (test gcow=168) CREATININE (BEAKER) (test 0.99 mg/dL 0.57-1.25 ksoy=067) GLUCOSE RANDOM (BEAKER) 107 mg/dL 70-105 (test ezvq=713) CALCIUM (BEAKER) (test 9.0 mg/dL 8.4-10.2 zvuo=897) EGFR (BEAKER) (test 66 mL/min/1.73 sq m ESTIMATED GFR IS NOT oljo=4170) ACCURATE CREATININE CLEARANCE IN PREDICTING GLOMERULAR FILTRATION RATE. ESTIMATED GFR IS NOT APPLICABLE FOR DIALYSIS PATIENTS. [id number] 05:26:00 Test Item Value Reference Range Comments PARTIAL THROMBOPLASTIN TIME (BEAKER) (test 32.9 seconds 22.5-36.0 azal=337) CBC (HEMOGRAM ONLY)2018-12-18 05:20:00 Test Item Value Reference Range Comments WHITE BLOOD CELL COUNT (BEAKER) (test mltt=071) 11.6 K/ L 3.5-10.5 RED BLOOD CELL COUNT (BEAKER) (test hpds=528) 3.08 M/ L 3.93-5.22 HEMOGLOBIN (BEAKER) (test wurz=652) 9.7 GM/DL 11.2-15.7 HEMATOCRIT (BEAKER) (test vboc=037) 29.7 % 34.1-44.9 MEAN CORPUSCULAR VOLUME (BEAKER) (test tnwf=597) 96.4 fL 79.4-94.8 MEAN CORPUSCULAR HEMOGLOBIN (BEAKER) (test 31.5 pg 25.6-32.2 lhei=557) MEAN CORPUSCULAR HEMOGLOBIN CONC (BEAKER) (test 32.7 GM/DL 32.2-35.5 kpwu=926) RED CELL DISTRIBUTION WIDTH (BEAKER) (test 17.8 % 11.7-14.4 zffo=699) PLATELET COUNT (BEAKER) (test ozuu=513) 102 K/CU MM 150-450 MEAN PLATELET VOLUME (BEAKER) (test qvhz=003) 12.1 fL 9.4-12.3 NUCLEATED RED BLOOD CELLS (BEAKER) (test 0 /100 WBC 0-0 uxui=498) BLOOD GAS, [id number] 05:10:00 Test Item Value Reference Range Comments PH ARTERIAL (BEAKER) (test wueh=436) 7.41 7.35-7.45 PCO2 ARTERIAL (BEAKER) (test kkzh=568) 34 mmHg 35-45 PO2 ARTERIAL (BEAKER) (test sgxp=311) 242 mmHg 80-90 O2 SATURATION ARTERIAL (BEAKER) (test kari=282) 99.6 % 96.0-97.0 HCO3 ARTERIAL (BEAKER) (test rdcv=728) 21 mmol/L 21-29 BASE EXCESS ARTERIAL (BEAKER) (test ozyp=155) -3.1 mmol/L -2.0-3.0 PATIENT TEMPERATURE (BEAKER) (test vpzm=2375) 36.9 C FIO2 (BEAKER) (test dllu=8760) 60.0 % RAD, CHEST, 1 VIEW, NON [id number] 04:43:00while patient is intubated or has chest tubes.Reason for exam:->Status post CV SurgeryShould thisbe performed at the bedside?->YesFINAL REPORT Chest one view. Clinical history: Status post CV Surgery Comparison: Chest radiograph 12/17 Technique: A single frontal view of the chest was obtained. Findings: There has been interval removal of endotracheal and feeding tubes. There is a left chest tube. There is a mediastinal drain. The cardiomediastinal contours are stable. There improved aeration in the bilateral lungs with residual bilateral lower lobe opacities, left greater than right which may represent pneumonia/atelectasis. There is no definite pleural effusion. There is no pneumothorax. Signed: Anabell Hamilton MDReport Verified Date/Time: 12/18/2018 04: 43:02 Reading Location: [address] Reading Room BLOOD GAS, [id number] 02:48:00 Test Item Value Reference Range Comments PH ARTERIAL (BEAKER) (test ziil=415) 7.39 7.35-7.45 PCO2 ARTERIAL (BEAKER) (test osbf=556) 36 mmHg 35-45 PO2 ARTERIAL (BEAKER) (test iqmz=102) 221 mmHg 80-90 O2 SATURATION ARTERIAL (BEAKER) (test wppa=288) 99.5 % 96.0-97.0 HCO3 ARTERIAL (BEAKER) (test sypr=260) 21 mmol/L 21-29 BASE EXCESS ARTERIAL (BEAKER) (test vdye=179) -3.5 mmol/L -2.0-3.0 PATIENT TEMPERATURE (BEAKER) (test oqra=4526) 36.7 C FIO2 (BEAKER) (test gnbr=5630) 40.0 % [id number] 23:12:00 Test Item Value Reference Range Comments MAGNESIUM (BEAKER) (test pgqk=001) 2.4 mg/dL 1.6-2.6 Check Serum Magnesium level 2 hours after IV magnesium replacement.BLOOD GAS, [id number] 23:00:00 Test Item Value Reference Range Comments PH ARTERIAL (BEAKER) (test frhp=001) 7.40 7.35-7.45 PCO2 ARTERIAL (BEAKER) (test rnim=617) 35 mmHg 35-45 PO2 ARTERIAL (BEAKER) (test xlqi=770) 139 mmHg 80-90 O2 SATURATION ARTERIAL (BEAKER) (test vzfi=640) 98.8 % 96.0-97.0 HCO3 ARTERIAL (BEAKER) (test obop=743) 22 mmol/L 21-29 BASE EXCESS ARTERIAL (BEAKER) (test kuaw=706) -2.8 mmol/L -2.0-3.0 PATIENT TEMPERATURE (BEAKER) (test gllv=5860) 36.9 C FIO2 (BEAKER) (test dswb=2228) 40.0 % LACTIC ACID, ARTERIAL, WHOLE [id number] 20:01:00 Test Item Value Reference Range Comments LACTATE BLOOD ARTERIAL (2) (BEAKER) (test 1.5 mmol/L 0.5-2.2 ltte=6149) [id number] 19:59:00 Test Item Value Reference Range Comments MAGNESIUM (BEAKER) (test zuow=915) 1.7 mg/dL 1.6-2.6 SODIUM NA-STAT [id number] 19:40:00 Test Item Value Reference Range Comments SODIUM (BEAKER) (test kyig=421) 139 meq/L 135-148 POTASSIUM-STAT [id number] 19:40:00 Test Item Value Reference Range Comments POTASSIUM (BEAKER) (test ywsv=734) 4.2 meq/L 3.6-5.5 OXYGEN SATURATION, [id number] 19:40:00 Test Item Value Reference Range Comments O2 SATURATION (MEASURED) (BEAKER) (test wbmp=8933) 61.6 % CALCIUM, [id number] 19:40:00 Test Item Value Reference Range Comments CALCIUM IONIZED (BEAKER) (test wawn=926) 1.12 mmol/L 1.12-1.27 PH, BLOOD (BEAKER) (test pbvf=2411) 7.48 BLOOD GAS, [id number] 19:40:00 Test Item Value Reference Range Comments PH ARTERIAL (BEAKER) (test mirt=453) 7.48 7.35-7.45 PCO2 ARTERIAL (BEAKER) (test luid=326) 27 mmHg 35-45 PO2 ARTERIAL (BEAKER) (test hgxe=469) 158 mmHg 80-90 O2 SATURATION ARTERIAL (BEAKER) (test ljek=009) 99.2 % 96.0-97.0 HCO3 ARTERIAL (BEAKER) (test hhbl=167) 19 mmol/L 21-29 BASE EXCESS ARTERIAL (BEAKER) (test wpcc=092) -2.9 mmol/L -2.0-3.0 PATIENT TEMPERATURE (BEAKER) (test yggh=9629) 37.4 C FIO2 (BEAKER) (test hmqa=0000) 40.0 % GLUCOSE-STAT [id number] 19:40:00 Test Item Value Reference Range Comments GLUCOSE RANDOM (BEAKER) (test gvlx=744) 136 mg/dL 70-110 HGB/HCT (H&H) - STAT [id number] 19:40:00 Test Item Value Reference Range Comments HEMOGLOBIN (BEAKER) (test btzp=363) 10.8 g/dL 12.0-15.0 HEMATOCRIT (BEAKER) (test bnay=993) 32.0 % 36.0-45.0 POCT-GLUCOSE [id number] 18:42:00 Test Item Value Reference Range Comments POC-GLUCOSE METER (BEAKER) 138 mg/dL 70-110 TESTED AT [facility] [address] [facility] (test gfrs=7739) [facility] [address] POCT-GLUCOSE [id number] 17:37:00 Test Item Value Reference Range Comments POC-GLUCOSE METER (BEAKER) 147 mg/dL 70-110 TESTED AT [facility] [address] (test sqex=9009) [facility] [address] CBC W/PLT COUNT & AUTO [id number] 16:05:00 Test Item Value Reference Range Comments WHITE BLOOD CELL COUNT 4.7 K/ L 3.5-10.5 (BEAKER) (test sxby=532) RED BLOOD CELL COUNT (BEAKER) 4.11 M/ L 3.93-5.22 (test oizl=499) HEMOGLOBIN (BEAKER) (test 12.8 GM/DL 11.2-15.7 zpml=625) HEMATOCRIT (BEAKER) (test 40.0 % 34.1-44.9 ppfo=630) MEAN CORPUSCULAR VOLUME 97.3 fL 79.4-94.8 Discordant result compared (BEAKER) (test pavu=650) to previous result; clinical correlation required. MEAN CORPUSCULAR HEMOGLOBIN 31.1 pg 25.6-32.2 (BEAKER) (test ujly=269) MEAN CORPUSCULAR HEMOGLOBIN 32.0 GM/DL 32.2-35.5 CONC (BEAKER) (test zghw=492) RED CELL DISTRIBUTION WIDTH 17.1 % 11.7-14.4 (BEAKER) (test oitg=987) PLATELET COUNT (BEAKER) (test 84 K/CU MM 150-450 Discordant result compared zhpg=773) to previous result; clinical correlation required. MEAN PLATELET VOLUME (BEAKER) 12.3 fL 9.4-12.3 (test mzgw=233) NUCLEATED RED BLOOD CELLS 0 /100 WBC 0-0 (BEAKER) (test mvft=228) NEUTROPHILS RELATIVE PERCENT 87 % (BEAKER) (test zqgd=867) LYMPHOCYTES RELATIVE PERCENT 9 % (BEAKER) (test amcj=510) MONOCYTES RELATIVE PERCENT 2 % (BEAKER) (test benb=639) EOSINOPHILS RELATIVE PERCENT 0 % (BEAKER) (test znrn=046) BASOPHILS RELATIVE PERCENT 0 % (BEAKER) (test hymz=601) NEUTROPHILS ABSOLUTE COUNT 4.07 K/ L 1.56-6.13 (BEAKER) (test mrci=961) LYMPHOCYTES ABSOLUTE COUNT 0.41 K/ L 1.18-3.74 (BEAKER) (test boue=767) MONOCYTES ABSOLUTE COUNT 0.08 K/ L 0.24-0.36 (BEAKER) (test jmta=652) EOSINOPHILS ABSOLUTE COUNT 0.02 K/ L 0.04-0.36 (BEAKER) (test psqr=964) BASOPHILS ABSOLUTE COUNT 0.01 K/ L 0.01-0.08 (BEAKER) (test jkmu=632) IMMATURE GRANULOCYTES-RELATIVE 2 % 0-1 PERCENT (BEAKER) (test jyij=2366) (CELLAVISION MANUAL DIFF)2018-12-17 16:05:00 Test Item Value Reference Range Comments TOTAL COUNTED (BEAKER) (test thwd=2125) WBC MORPHOLOGY (BEAKER) (test qazz=388) Normal PLT MORPHOLOGY (BEAKER) (test mutb=845) Normal POLYCHROMATOPHILLIC RBCS(BEAKER) (test eetp=012) 1+ few ANISOCYTOSIS (BEAKER) (test knwf=426) 1+ few [id number] 15:49:00 Test Item Value Reference Range Comments ACTIVATED CLOTTING TIME 103 sec TESTED AT [address] (BEAKER) (test xykj=520) [place] [address] [id number] 15:49:00 Test Item Value Reference Range Comments ACTIVATED CLOTTING TIME 400 sec TESTED AT [address] (BEAKER) (test desu=247) [place] [address] [id number] 15:49:00 Test Item Value Reference Range Comments ACTIVATED CLOTTING TIME 373 sec TESTED AT [address] (BEAKER) (test lxzp=326) [place] [address] [id number] 15:49:00 Test Item Value Reference Range Comments ACTIVATED CLOTTING TIME 450 sec TESTED AT [address] (BEAKER) (test avlg=692) [place] [address] [id number] 15:49:00 Test Item Value Reference Range Comments ACTIVATED CLOTTING TIME 389 sec TESTED AT [address] (BEAKER) (test afah=138) [place] [address] [id number] 15:49:00 Test Item Value Reference Range Comments ACTIVATED CLOTTING TIME 340 sec TESTED AT [place] [address] [address] (BEAKER) (test fbrn=405) [place] [address] POCT-GLUCOSE [id number] 15:27:00 Test Item Value Reference Range Comments POC-GLUCOSE METER (BEAKER) 131 mg/dL 70-110 TESTED AT [facility] [address] [facility] (test vuxc=2612) [facility] [address] LACTIC ACID, ARTERIAL, WHOLE [id number] 15:19:00 Test Item Value Reference Range Comments LACTATE BLOOD ARTERIAL (2) (BEAKER) (test 2.3 mmol/L 0.5-2.2 dpnv=5875) [id number] 15:16:00 Test Item Value Reference Range Comments MAGNESIUM (BEAKER) (test hjny=485) 2.8 mg/dL 1.6-2.6 OXYGEN SATURATION, [id number] 14:57:00 Test Item Value Reference Range Comments O2 SATURATION (MEASURED) (BEAKER) (test aovn=8725) 51.5 % SODIUM NA-STAT [id number] 14:56:00 Test Item Value Reference Range Comments SODIUM (BEAKER) (test kveq=066) 140 meq/L 135-148 POTASSIUM-STAT [id number] 14:56:00 Test Item Value Reference Range Comments POTASSIUM (BEAKER) (test jprc=723) 3.9 meq/L 3.6-5.5 HGB/HCT (H&H) - STAT [id number] 14:56:00 Test Item Value Reference Range Comments HEMOGLOBIN (BEAKER) (test syux=296) 12.3 g/dL 12.0-15.0 HEMATOCRIT (BEAKER) (test rdia=937) 36.0 % 36.0-45.0 BLOOD GAS, [id number] 14:56:00 Test Item Value Reference Range Comments PH ARTERIAL (BEAKER) (test hhwx=591) 7.42 7.35-7.45 PCO2 ARTERIAL (BEAKER) (test nfzs=781) 33 mmHg 35-45 PO2 ARTERIAL (BEAKER) (test rguj=476) 96 mmHg 80-90 O2 SATURATION ARTERIAL (BEAKER) (test svaa=590) 97.9 % 96.0-97.0 HCO3 ARTERIAL (BEAKER) (test jtkv=464) 22 mmol/L 21-29 BASE EXCESS ARTERIAL (BEAKER) (test jqoh=482) -3.0 mmol/L -2.0-3.0 PATIENT TEMPERATURE (BEAKER) (test wres=7561) 35.0 C FIO2 (BEAKER) (test wxjn=4353) 60.0 % GLUCOSE-STAT [id number] 14:56:00 Test Item Value Reference Range Comments GLUCOSE RANDOM (BEAKER) (test ghbl=845) 141 mg/dL 70-110 BLOOD GAS, [id number] 13:28:00 Test Item Value Reference Range Comments PH ARTERIAL (BEAKER) (test xejk=052) 7.30 7.35-7.45 PCO2 ARTERIAL (BEAKER) (test mjzu=799) 42 mmHg 35-45 PO2 ARTERIAL (BEAKER) (test ebrh=386) 74 mmHg 80-90 O2 SATURATION ARTERIAL (BEAKER) (test awis=572) 94.6 % 96.0-97.0 HCO3 ARTERIAL (BEAKER) (test qkkj=134) 21 mmol/L 21-29 BASE EXCESS ARTERIAL (BEAKER) (test gkua=663) -5.8 mmol/L -2.0-3.0 PATIENT TEMPERATURE (BEAKER) (test bpip=4052) 35.5 C FIO2 (BEAKER) (test hmnv=3150) 60.0 % RAD, CHEST, 1 VIEW, NON [id number] 12:53:00Reason for exam:->PostopFINAL REPORT Chest x-ray Clinical History: Postop Comparison: November 28, 2018Views: 1 Chest x-ray:The cardiac and mediastinal silhouettes are prominent. There is no evidence ofa pneumothorax. There is no evidence of a large pleural effusion. There is no evidence of overt cardiac failure. The visible regional skeleton is intact. There is evidence of a left lower loberetrocardiac space focal parenchymal opacity. Interval placement of sternal wires, two chest tubes and endotracheal tube and nasogastric tube. There is a left internal jugular catheter terminating in the left brachiocephalic vein. Impression: Postoperative changes noted with interval development of left lower lobe presumed retrocardiac space compressive atelectasis. A nasogastric tube terminates in the proximal stomach. The left central venous catheter terminates in the expected location of the leftbrachiocephalic vein. Signed: Shorty Tyler Verified Date/Time: 12/17/2018 12:53:38 Reading Location: [facility] B1 [id number] Consult Reading Room PROTHROMBIN [id number] 12:37:00 Test Item Value Reference Range Comments PROTIME (BEAKER) (test asyl=437) 17.4 seconds 11.7-14.7 INR (BEAKER) (test soyo=945) 1.4 <=5.9 RECOMMENDED COUMADIN/WARFARIN INR THERAPY RANGESSTANDARD DOSE: 2.0 - 3.0 Includes: PROPHYLAXIS forvenous thrombosis, systemic embolization; TREATMENT for venous thrombosis and/or pulmonary embolus.HIGH RISK: Target INR is 2.5-3.5 for patients with mechanical heart valves.[id number] 12:37:00 Test Item Value Reference Range Comments FIBRINOGEN LEVEL (BEAKER) (test rnfo=649) 238 mg/dl 225-434 [id number] 12:37:00 Test Item Value Reference Range Comments PARTIAL THROMBOPLASTIN TIME (BEAKER) (test 33.3 seconds 22.5-36.0 smtj=561) [id number] 12:37:00 Test Item Value Reference Range Comments MAGNESIUM (BEAKER) (test fwtd=510) 1.4 mg/dL 1.6-2.6 BASIC METABOLIC [id number] 12:37:00 Test Item Value Reference Range Comments SODIUM (BEAKER) (test 142 meq/L 136-145 fmmp=123) POTASSIUM (BEAKER) (test 4.2 meq/L 3.5-5.1 yrmi=532) CHLORIDE (BEAKER) (test 113 meq/L 98-107 legz=874) CO2 (BEAKER) (test 22 meq/L 22-29 rkml=914) BLOOD UREA NITROGEN 15 mg/dL 7-21 (BEAKER) (test hatg=921) CREATININE (BEAKER) (test 0.86 mg/dL 0.57-1.25 yhzd=466) GLUCOSE RANDOM (BEAKER) 195 mg/dL 70-105 (test lwzq=459) CALCIUM (BEAKER) (test 8.5 mg/dL 8.4-10.2 jemd=617) EGFR (BEAKER) (test 77 mL/min/1.73 sq m ESTIMATED GFR IS NOT mudn=2923) ACCURATE CREATININE CLEARANCE IN PREDICTING GLOMERULAR FILTRATION RATE. ESTIMATED GFR IS NOT APPLICABLE FOR DIALYSIS PATIENTS. LACTIC ACID, ARTERIAL, WHOLE [id number] 12:35:00 Test Item Value Reference Range Comments LACTATE BLOOD ARTERIAL (2) (BEAKER) (test 1.5 mmol/L 0.5-2.2 qwkl=0074) CALCIUM, [id number] 12:32:00 Test Item Value Reference Range Comments CALCIUM IONIZED (BEAKER) (test gvzt=622) 1.19 mmol/L 1.12-1.27 PH, BLOOD (BEAKER) (test fdjk=6463) 7.28 OXYGEN SATURATION, [id number] 12:32:00 Test Item Value Reference Range Comments O2 SATURATION (MEASURED) (BEAKER) (test qnjp=5000) 49.7 % BLOOD GAS, [id number] 12:31:00 Test Item Value Reference Range Comments PH ARTERIAL (BEAKER) (test dgey=036) 7.31 7.35-7.45 PCO2 ARTERIAL (BEAKER) (test anep=944) 44 mmHg 35-45 PO2 ARTERIAL (BEAKER) (test xabj=721) 53 mmHg 80-90 O2 SATURATION ARTERIAL (BEAKER) (test vfqc=256) 87.4 % 96.0-97.0 HCO3 ARTERIAL (BEAKER) (test fsyv=589) 22 mmol/L 21-29 BASE EXCESS ARTERIAL (BEAKER) (test nysy=095) -4.9 mmol/L -2.0-3.0 PATIENT TEMPERATURE (BEAKER) (test jinm=9238) 35.3 C FIO2 (BEAKER) (test tqpm=9790) 60.0 % BLOOD GAS, [id number] 10:54:00 Test Item Value Reference Range Comments PH ARTERIAL (BEAKER) (test pfgg=710) 7.36 7.35-7.45 PCO2 ARTERIAL (BEAKER) (test yydr=671) 37 mmHg 35-45 PO2 ARTERIAL (BEAKER) (test opgi=629) 220 mmHg 80-90 O2 SATURATION ARTERIAL (BEAKER) (test uiph=100) 99.4 % 96.0-97.0 HCO3 ARTERIAL (BEAKER) (test ypnd=198) 21 mmol/L 21-29 BASE EXCESS ARTERIAL (BEAKER) (test vdoz=472) -4.7 mmol/L -2.0-3.0 PATIENT TEMPERATURE (BEAKER) (test tbbw=6174) 35.7 C FIO2 (BEAKER) (test lely=6509) 100.0 % GLUCOSE-STAT [id number] 10:54:00 Test Item Value Reference Range Comments GLUCOSE RANDOM (BEAKER) (test qbof=864) 193 mg/dL 70-110 CALCIUM, [id number] 10:54:00 Test Item Value Reference Range Comments CALCIUM IONIZED (BEAKER) (test apfv=557) 1.08 mmol/L 1.12-1.27 PH, BLOOD (BEAKER) (test tinh=4166) 7.34 SODIUM NA-STAT [id number] 10:53:00 Test Item Value Reference Range Comments SODIUM (BEAKER) (test zwnz=244) 138 meq/L 135-148 POTASSIUM-STAT [id number] 10:53:00 Test Item Value Reference Range Comments POTASSIUM (BEAKER) (test onlf=258) 4.4 meq/L 3.6-5.5 HGB/HCT (H&H) - STAT [id number] 10:53:00 Test Item Value Reference Range Comments HEMOGLOBIN (BEAKER) (test zznt=625) 12.3 g/dL 12.0-15.0 HEMATOCRIT (BEAKER) (test cimv=445) 36.0 % 36.0-45.0 CALCIUM, [id number] 10:30:00 Test Item Value Reference Range Comments CALCIUM IONIZED (BEAKER) (test jbaa=048) 1.16 mmol/L 1.12-1.27 PH, BLOOD (BEAKER) (test cmak=6491) 7.34 BLOOD GAS, [id number] 10:25:00 Test Item Value Reference Range Comments PH ARTERIAL (BEAKER) (test jkss=679) 7.36 7.35-7.45 PCO2 ARTERIAL (BEAKER) (test hktn=370) 41 mmHg 35-45 PO2 ARTERIAL (BEAKER) (test tdol=954) 115 mmHg 80-90 O2 SATURATION ARTERIAL (BEAKER) (test uwcq=111) 98.2 % 96.0-97.0 HCO3 ARTERIAL (BEAKER) (test mwyt=642) 23 mmol/L 21-29 BASE EXCESS ARTERIAL (BEAKER) (test xkpw=923) -3.1 mmol/L -2.0-3.0 PATIENT TEMPERATURE (BEAKER) (test rzug=9190) 35.7 C FIO2 (BEAKER) (test xciv=1518) 100.0 % GLUCOSE-STAT [id number] 10:25:00 Test Item Value Reference Range Comments GLUCOSE RANDOM (BEAKER) (test zrfv=176) 223 mg/dL 70-110 HGB/HCT (H&H) - STAT [id number] 10:25:00 Test Item Value Reference Range Comments HEMOGLOBIN (BEAKER) (test swfz=759) 13.4 g/dL 12.0-15.0 HEMATOCRIT (BEAKER) (test lpxv=333) 39.0 % 36.0-45.0 SODIUM NA-STAT [id number] 10:24:00 Test Item Value Reference Range Comments SODIUM (BEAKER) (test ptyb=415) 136 meq/L 135-148 POTASSIUM-STAT [id number] 10:24:00 Test Item Value Reference Range Comments POTASSIUM (BEAKER) (test iush=789) 5.0 meq/L 3.6-5.5 POTASSIUM-STAT [id number] 09:51:00 Test Item Value Reference Range Comments POTASSIUM (BEAKER) (test glxs=859) 6.4 meq/L 3.6-5.5 BLOOD GAS, [id number] 09:45:00 Test Item Value Reference Range Comments PH ARTERIAL (BEAKER) (test yoab=516) 7.42 7.35-7.45 PCO2 ARTERIAL (BEAKER) (test yljn=161) 37 mmHg 35-45 PO2 ARTERIAL (BEAKER) (test jhoi=514) 277 mmHg 80-90 O2 SATURATION ARTERIAL (BEAKER) (test mgev=668) 99.7 % 96.0-97.0 HCO3 ARTERIAL (BEAKER) (test ewrw=663) 24 mmol/L 21-29 BASE EXCESS ARTERIAL (BEAKER) (test bzho=575) -0.7 mmol/L -2.0-3.0 PATIENT TEMPERATURE (BEAKER) (test wczw=0467) 34.4 C FIO2 (BEAKER) (test cahf=7526) 70.0 % GLUCOSE-STAT [id number] 09:45:00 Test Item Value Reference Range Comments GLUCOSE RANDOM (BEAKER) (test heuu=749) 235 mg/dL 70-110 HGB/HCT (H&H) - STAT [id number] 09:45:00 Test Item Value Reference Range Comments HEMOGLOBIN (BEAKER) (test dnyg=056) 9.0 g/dL 12.0-15.0 HEMATOCRIT (BEAKER) (test wcki=871) 26.0 % 36.0-45.0 SODIUM NA-STAT [id number] 09:45:00 Test Item Value Reference Range Comments SODIUM (BEAKER) (test syur=688) 134 meq/L 135-148 HGB/HCT (H&H) - STAT [id number] 09:23:00 Test Item Value Reference Range Comments HEMOGLOBIN (BEAKER) (test xsex=574) 5.3 g/dL 12.0-15.0 HEMATOCRIT (BEAKER) (test whrz=344) 16.0 % 36.0-45.0 SODIUM NA-STAT [id number] 09:16:00 Test Item Value Reference Range Comments SODIUM (BEAKER) (test dnas=418) 130 meq/L 135-148 POTASSIUM-STAT [id number] 09:16:00 Test Item Value Reference Range Comments POTASSIUM (BEAKER) (test hpfc=970) 5.7 meq/L 3.6-5.5 BLOOD GAS, [id number] 09:15:00 Test Item Value Reference Range Comments PH ARTERIAL (BEAKER) (test tovc=127) 7.29 7.35-7.45 PCO2 ARTERIAL (BEAKER) (test kjey=967) 40 mmHg 35-45 PO2 ARTERIAL (BEAKER) (test jdwr=333) 270 mmHg 80-90 O2 SATURATION ARTERIAL (BEAKER) (test eupw=417) 99.6 % 96.0-97.0 HCO3 ARTERIAL (BEAKER) (test kugd=605) 20 mmol/L 21-29 BASE EXCESS ARTERIAL (BEAKER) (test ehdf=961) -7.0 mmol/L -2.0-3.0 PATIENT TEMPERATURE (BEAKER) (test aaqk=2114) 34.1 C FIO2 (BEAKER) (test iybj=4252) 65.0 % GLUCOSE-STAT [id number] 09:15:00 Test Item Value Reference Range Comments GLUCOSE RANDOM (BEAKER) (test vbsz=545) 206 mg/dL 70-110 BLOOD GAS, [id number] 08:17:00 Test Item Value Reference Range Comments PH ARTERIAL (BEAKER) (test hnsj=931) 7.49 7.35-7.45 PCO2 ARTERIAL (BEAKER) (test txbl=314) 27 mmHg 35-45 PO2 ARTERIAL (BEAKER) (test mhir=882) 436 mmHg 80-90 O2 SATURATION ARTERIAL (BEAKER) (test fiti=318) 99.9 % 96.0-97.0 HCO3 ARTERIAL (BEAKER) (test koab=741) 21 mmol/L 21-29 BASE EXCESS ARTERIAL (BEAKER) (test tshq=300) -2.3 mmol/L -2.0-3.0 PATIENT TEMPERATURE (BEAKER) (test fksj=8843) 35.3 C FIO2 (BEAKER) (test uvac=9136) 100.0 % GLUCOSE-STAT [id number] 08:17:00 Test Item Value Reference Range Comments GLUCOSE RANDOM (BEAKER) (test yrxg=240) 124 mg/dL 70-110 HGB/HCT (H&H) - STAT [id number] 08:17:00 Test Item Value Reference Range Comments HEMOGLOBIN (BEAKER) (test tkic=909) 10.0 g/dL 12.0-15.0 HEMATOCRIT (BEAKER) (test gubm=677) 29.0 % 36.0-45.0 CALCIUM, [id number] 08:17:00 Test Item Value Reference Range Comments CALCIUM IONIZED (BEAKER) (test pacd=010) 1.10 mmol/L 1.12-1.27 PH, BLOOD (BEAKER) (test xotk=5874) 7.47 SODIUM NA-STAT [id number] 08:16:00 Test Item Value Reference Range Comments SODIUM (BEAKER) (test eigc=101) 138 meq/L 135-148 POTASSIUM-STAT [id number] 08:16:00 Test Item Value Reference Range Comments POTASSIUM (BEAKER) (test rfur=345) 4.2 meq/L 3.6-5.5 [id number] 06:01:00 Test Item Value Reference Range Comments MAGNESIUM (BEAKER) (test owgu=690) 1.5 mg/dL 1.6-2.6 BASIC METABOLIC [id number] 06:01:00 Test Item Value Reference Range Comments SODIUM (BEAKER) (test 141 meq/L 136-145 ukev=160) POTASSIUM (BEAKER) (test 4.6 meq/L 3.5-5.1 wnxs=329) CHLORIDE (BEAKER) (test 112 meq/L 98-107 dgpt=013) CO2 (BEAKER) (test 22 meq/L 22-29 smns=232) BLOOD UREA NITROGEN 17 mg/dL 7-21 (BEAKER) (test jayf=150) CREATININE (BEAKER) (test 1.03 mg/dL 0.57-1.25 wfcm=540) GLUCOSE RANDOM (BEAKER) 109 mg/dL 70-105 (test oaiv=496) CALCIUM (BEAKER) (test 9.7 mg/dL 8.4-10.2 qduz=745) EGFR (BEAKER) (test 63 mL/min/1.73 sq m ESTIMATED GFR IS NOT hpwh=4735) ACCURATE CREATININE CLEARANCE IN PREDICTING GLOMERULAR FILTRATION RATE. ESTIMATED GFR IS NOT APPLICABLE FOR DIALYSIS PATIENTS. [id number] 05:50:00 Test Item Value Reference Range Comments PARTIAL THROMBOPLASTIN TIME (BEAKER) (test 81.2 seconds 22.5-36.0 xddy=404) PROTHROMBIN [id number] 05:49:00 Test Item Value Reference Range Comments PROTIME (BEAKER) (test cewg=797) 14.2 seconds 11.7-14.7 INR (BEAKER) (test btzy=817) 1.1 <=5.9 RECOMMENDED COUMADIN/WARFARIN INR THERAPY RANGESSTANDARD DOSE: 2.0 - 3.0 Includes: PROPHYLAXIS forvenous thrombosis, systemic embolization; TREATMENT for venous thrombosis and/or pulmonary embolus.HIGH RISK: Target INR is 2.5-3.5 for patients with mechanical heart valves.CBC (HEMOGRAM ONLY)[id number] 05:40:00 Test Item Value Reference Range Comments WHITE BLOOD CELL COUNT (BEAKER) (test xzks=634) 4.9 K/ L 3.5-10.5 RED BLOOD CELL COUNT (BEAKER) (test pebt=016) 3.05 M/ L 3.93-5.22 HEMOGLOBIN (BEAKER) (test yytp=033) 10.0 GM/DL 11.2-15.7 HEMATOCRIT (BEAKER) (test cydk=346) 31.8 % 34.1-44.9 MEAN CORPUSCULAR VOLUME (BEAKER) (test eawo=986) 104.3 fL 79.4-94.8 MEAN CORPUSCULAR HEMOGLOBIN (BEAKER) (test 32.8 pg 25.6-32.2 ywgf=960) MEAN CORPUSCULAR HEMOGLOBIN CONC (BEAKER) (test 31.4 GM/DL 32.2-35.5 umar=130) RED CELL DISTRIBUTION WIDTH (BEAKER) (test 14.8 % 11.7-14.4 pwrf=505) PLATELET COUNT (BEAKER) (test ossa=306) 171 K/CU MM 150-450 MEAN PLATELET VOLUME (BEAKER) (test kohb=352) 12.5 fL 9.4-12.3 NUCLEATED RED BLOOD CELLS (BEAKER) (test 0 /100 WBC 0-0 ofgq=392) POCT-GLUCOSE [id number] 21:31:00 Test Item Value Reference Range Comments POC-GLUCOSE METER (BEAKER) 123 mg/dL 70-110 TESTED AT [address] (test bdjw=4329) [place] [id number] POCT-GLUCOSE [id number] 17:23:00 Test Item Value Reference Range Comments POC-GLUCOSE METER (BEAKER) 121 mg/dL 70-110 TESTED AT [address] (test mvdx=6846) [place] [id number] POCT-GLUCOSE [id number] 12:37:00 Test Item Value Reference Range Comments POC-GLUCOSE METER (BEAKER) 167 mg/dL 70-110 TESTED AT [address] (test mklr=3714) [place] [id number] POCT-GLUCOSE [id number] 09:52:00 Test Item Value Reference Range Comments POC-GLUCOSE METER (BEAKER) 227 mg/dL 70-110 TESTED AT [address] (test nosz=2785) [place] [address] [id number] 04:44:00 Test Item Value Reference Range Comments PARTIAL THROMBOPLASTIN TIME (BEAKER) (test 66.8 seconds 22.5-36.0 kylp=853) [id number] 04:42:00 Test Item Value Reference Range Comments MAGNESIUM (BEAKER) (test uypk=672) 1.7 mg/dL 1.6-2.6 BASIC METABOLIC [id number] 04:42:00 Test Item Value Reference Range Comments SODIUM (BEAKER) (test 139 meq/L 136-145 ujld=259) POTASSIUM (BEAKER) (test 4.0 meq/L 3.5-5.1 knqs=967) CHLORIDE (BEAKER) (test 111 meq/L 98-107 rsqe=354) CO2 (BEAKER) (test 22 meq/L 22-29 jmio=552) BLOOD UREA NITROGEN 19 mg/dL 7-21 (BEAKER) (test rejq=977) CREATININE (BEAKER) (test 1.09 mg/dL 0.57-1.25 xvcm=205) GLUCOSE RANDOM (BEAKER) 109 mg/dL 70-105 (test hish=106) CALCIUM (BEAKER) (test 9.3 mg/dL 8.4-10.2 ppuh=079) EGFR (BEAKER) (test 59 mL/min/1.73 sq m ESTIMATED GFR IS NOT nmbi=9340) ACCURATE CREATININE CLEARANCE IN PREDICTING GLOMERULAR FILTRATION RATE. ESTIMATED GFR IS NOT APPLICABLE FOR DIALYSIS PATIENTS. CBC (HEMOGRAM ONLY)2018-12-16 04:25:00 Test Item Value Reference Range Comments WHITE BLOOD CELL COUNT (BEAKER) (test wfdm=440) 4.5 K/ L 3.5-10.5 RED BLOOD CELL COUNT (BEAKER) (test nlpg=563) 2.86 M/ L 3.93-5.22 HEMOGLOBIN (BEAKER) (test mxor=576) 9.3 GM/DL 11.2-15.7 HEMATOCRIT (BEAKER) (test iwzd=791) 29.8 % 34.1-44.9 MEAN CORPUSCULAR VOLUME (BEAKER) (test gyiv=008) 104.2 fL 79.4-94.8 MEAN CORPUSCULAR HEMOGLOBIN (BEAKER) (test 32.5 pg 25.6-32.2 diqz=129) MEAN CORPUSCULAR HEMOGLOBIN CONC (BEAKER) (test 31.2 GM/DL 32.2-35.5 tltr=612) RED CELL DISTRIBUTION WIDTH (BEAKER) (test 14.7 % 11.7-14.4 usls=494) PLATELET COUNT (BEAKER) (test ufeu=935) 181 K/CU MM 150-450 MEAN PLATELET VOLUME (BEAKER) (test rlmm=145) 12.2 fL 9.4-12.3 NUCLEATED RED BLOOD CELLS (BEAKER) (test 0 /100 WBC 0-0 jgjr=361) [id number] 23:39:00 Test Item Value Reference Range Comments PARTIAL THROMBOPLASTIN TIME (BEAKER) (test 70.2 seconds 22.5-36.0 dhdz=967) POCT-GLUCOSE [id number] 21:47:00 Test Item Value Reference Range Comments POC-GLUCOSE METER (BEAKER) 145 mg/dL 70-110 TESTED AT [address] (test jctp=1191) [place] [address] POCT-GLUCOSE [id number] 18:36:00 Test Item Value Reference Range Comments POC-GLUCOSE METER (BEAKER) 143 mg/dL 70-110 TESTED AT [address] (test dvtt=4798) [place] [address] [id number] 17:07:00 Test Item Value Reference Range Comments PARTIAL THROMBOPLASTIN TIME (BEAKER) (test 65.6 seconds 22.5-36.0 aguq=858) [id number] 09:50:00 Test Item Value Reference Range Comments PARTIAL THROMBOPLASTIN TIME (BEAKER) (test 58.1 seconds 22.5-36.0 dcrj=304) POCT-GLUCOSE [id number] 09:08:00 Test Item Value Reference Range Comments POC-GLUCOSE METER (BEAKER) 164 mg/dL 70-110 TESTED AT [address] (test twcr=3089) [place] [address] [id number] 04:08:00 Test Item Value Reference Range Comments PARTIAL THROMBOPLASTIN TIME (BEAKER) (test 79.3 seconds 22.5-36.0 qdnh=259) [id number] 04:05:00 Test Item Value Reference Range Comments MAGNESIUM (BEAKER) (test qbzs=508) 1.5 mg/dL 1.6-2.6 BASIC METABOLIC [id number] 04:05:00 Test Item Value Reference Range Comments SODIUM (BEAKER) (test 140 meq/L 136-145 vjip=493) POTASSIUM (BEAKER) (test 4.2 meq/L 3.5-5.1 rovw=835) CHLORIDE (BEAKER) (test 110 meq/L 98-107 cgob=372) CO2 (BEAKER) (test 22 meq/L 22-29 neaz=974) BLOOD UREA NITROGEN 19 mg/dL 7-21 (BEAKER) (test acdr=429) CREATININE (BEAKER) (test 1.04 mg/dL 0.57-1.25 irlo=002) GLUCOSE RANDOM (BEAKER) 118 mg/dL 70-105 (test jcug=722) CALCIUM (BEAKER) (test 9.6 mg/dL 8.4-10.2 zfmp=638) EGFR (BEAKER) (test 62 mL/min/1.73 sq m ESTIMATED GFR IS NOT sfxw=0559) ACCURATE CREATININE CLEARANCE IN PREDICTING GLOMERULAR FILTRATION RATE. ESTIMATED GFR IS NOT APPLICABLE FOR DIALYSIS PATIENTS. CBC (HEMOGRAM ONLY)2018-12-15 03:57:00 Test Item Value Reference Range Comments WHITE BLOOD CELL COUNT (BEAKER) (test uste=774) 5.5 K/ L 3.5-10.5 RED BLOOD CELL COUNT (BEAKER) (test zaou=735) 2.99 M/ L 3.93-5.22 HEMOGLOBIN (BEAKER) (test hqyr=221) 9.7 GM/DL 11.2-15.7 HEMATOCRIT (BEAKER) (test uxzy=736) 31.2 % 34.1-44.9 MEAN CORPUSCULAR VOLUME (BEAKER) (test dirn=484) 104.3 fL 79.4-94.8 MEAN CORPUSCULAR HEMOGLOBIN (BEAKER) (test 32.4 pg 25.6-32.2 ezzf=253) MEAN CORPUSCULAR HEMOGLOBIN CONC (BEAKER) (test 31.1 GM/DL 32.2-35.5 hmqf=035) RED CELL DISTRIBUTION WIDTH (BEAKER) (test 14.6 % 11.7-14.4 sprf=495) PLATELET COUNT (BEAKER) (test fcqp=523) 167 K/CU MM 150-450 MEAN PLATELET VOLUME (BEAKER) (test qcvd=811) 12.3 fL 9.4-12.3 NUCLEATED RED BLOOD CELLS (BEAKER) (test 0 /100 WBC 0-0 cgaf=316) [id number] 21:53:00 Test Item Value Reference Range Comments PARTIAL THROMBOPLASTIN TIME (BEAKER) (test 112.2 seconds 22.5-36.0 kisx=458) POCT-GLUCOSE [id number] 20:34:00 Test Item Value Reference Range Comments POC-GLUCOSE METER (BEAKER) 125 mg/dL 70-110 TESTED AT [address] (test lkmc=4959) [place] [address] OCCULT BLOOD, [id number] 14:49:00 Test Item Value Reference Range Comments FECAL OCCULT BLOOD (BEAKER) (test xupt=664) Negative Negative POCT-GLUCOSE [id number] 14:43:00 Test Item Value Reference Range Comments POC-GLUCOSE METER (BEAKER) 128 mg/dL 70-110 TESTED AT [address] (test celh=6774) [place] [address] [id number] 14:43:00 Test Item Value Reference Range Comments PARTIAL THROMBOPLASTIN TIME (BEAKER) (test 104.0 seconds 22.5-36.0 khyw=307) C. DIFFICILE GDH [id number] 09:11:00 Test Item Value Reference Range Comments CDT TOXIN (test Negative Negative ejlu=[id number]) CDT GDH ANTIGEN (test Positive Negative C. difficile present but toxin cvln=[id number]) not detected. Indicates colonization with non-toxigenic strain or level of toxin below detectable levels. No need for enteric isolation. Treatment is rarely needed (only when strong clinical suspicion for Clostridium difficile infection) Testing performed by [employer] Rapid Cassette Assay. For GDH, published sensitivity of the assay is 98.7% compared to cytotoxicity testing. For Toxin AB, published sensitivity is 87.8% and specificity 99.4% compared to cytotoxicity testing.Verification of kit performance was done by the [facility] Microbiology Lab prior to clinical use.[id number] 07:50:00 Test Item Value Reference Range Comments MAGNESIUM (BEAKER) (test 1.8 mg/dL 1.6-2.6 Specimen slightly hemolyzed stnq=250) BASIC METABOLIC [id number] 07:50:00 Test Item Value Reference Range Comments SODIUM (BEAKER) (test 137 meq/L 136-145 jaoz=654) POTASSIUM (BEAKER) (test 4.8 meq/L 3.5-5.1 Specimen slightly zmyw=584) hemolyzed CHLORIDE (BEAKER) (test 107 meq/L 98-107 kvnz=430) CO2 (BEAKER) (test 20 meq/L 22-29 nxqy=001) BLOOD UREA NITROGEN 21 mg/dL 7-21 (BEAKER) (test eobe=797) CREATININE (BEAKER) (test 1.11 mg/dL 0.57-1.25 Specimen slightly wrlv=823) hemolyzed GLUCOSE RANDOM (BEAKER) 97 mg/dL 70-105 (test bueu=043) CALCIUM (BEAKER) (test 9.3 mg/dL 8.4-10.2 thhy=227) EGFR (BEAKER) (test 57 mL/min/1.73 sq m ESTIMATED GFR IS NOT vmch=7152) ACCURATE CREATININE CLEARANCE IN PREDICTING GLOMERULAR FILTRATION RATE. ESTIMATED GFR IS NOT APPLICABLE FOR DIALYSIS PATIENTS. POCT-GLUCOSE [id number] 07:49:00 Test Item Value Reference Range Comments POC-GLUCOSE METER (BEAKER) 131 mg/dL 70-110 TESTED AT [facility] [address] [place] [address] (test xckw=5565) [facility] [address] [id number] 07:18:00 Test Item Value Reference Range Comments PARTIAL THROMBOPLASTIN TIME (BEAKER) (test 38.8 seconds 22.5-36.0 lzhe=354) CBC (HEMOGRAM ONLY)2018-12-14 07:00:00 Test Item Value Reference Range Comments WHITE BLOOD CELL COUNT (BEAKER) (test bvue=988) 4.9 K/ L 3.5-10.5 RED BLOOD CELL COUNT (BEAKER) (test nipe=079) 2.91 M/ L 3.93-5.22 HEMOGLOBIN (BEAKER) (test pdhi=355) 9.5 GM/DL 11.2-15.7 HEMATOCRIT (BEAKER) (test ucfa=763) 30.8 % 34.1-44.9 MEAN CORPUSCULAR VOLUME (BEAKER) (test oobt=832) 105.8 fL 79.4-94.8 MEAN CORPUSCULAR HEMOGLOBIN (BEAKER) (test 32.6 pg 25.6-32.2 kmcc=462) MEAN CORPUSCULAR HEMOGLOBIN CONC (BEAKER) (test 30.8 GM/DL 32.2-35.5 foei=428) RED CELL DISTRIBUTION WIDTH (BEAKER) (test 14.6 % 11.7-14.4 vixz=181) PLATELET COUNT (BEAKER) (test hoob=623) 177 K/CU MM 150-450 MEAN PLATELET VOLUME (BEAKER) (test xttb=623) 12.7 fL 9.4-12.3 NUCLEATED RED BLOOD CELLS (BEAKER) (test 0 /100 WBC 0-0 muhv=204) [id number] 21:36:00 Test Item Value Reference Range Comments PARTIAL THROMBOPLASTIN TIME (BEAKER) (test 73.2 seconds 22.5-36.0 lxpm=251) POCT-GLUCOSE [id number] 21:14:00 Test Item Value Reference Range Comments POC-GLUCOSE METER (BEAKER) 116 mg/dL 70-110 TESTED AT [address] (test qxop=6777) [place] [address] POCT-GLUCOSE [id number] 18:13:00 Test Item Value Reference Range Comments POC-GLUCOSE METER (BEAKER) 150 mg/dL 70-110 TESTED AT [address] (test xfey=9216) [place] [address] [id number] 14:26:00 Test Item Value Reference Range Comments PARTIAL THROMBOPLASTIN TIME (BEAKER) (test 87.5 seconds 22.5-36.0 iyie=404) POCT-GLUCOSE [id number] 12:54:00 Test Item Value Reference Range Comments POC-GLUCOSE METER (BEAKER) 140 mg/dL 70-110 TESTED AT [address] (test jkfh=0200) [place] [id number] POCT-GLUCOSE [id number] 09:38:00 Test Item Value Reference Range Comments POC-GLUCOSE METER (BEAKER) 148 mg/dL 70-110 TESTED AT [address] (test nvgn=9925) [place] [address] [id number] 06:53:00 Test Item Value Reference Range Comments MAGNESIUM (BEAKER) (test knpi=496) 2.0 mg/dL 1.6-2.6 BASIC METABOLIC [id number] 06:53:00 Test Item Value Reference Range Comments SODIUM (BEAKER) (test 138 meq/L 136-145 vkpt=768) POTASSIUM (BEAKER) (test 4.5 meq/L 3.5-5.1 ocqc=949) CHLORIDE (BEAKER) (test 106 meq/L 98-107 walw=041) CO2 (BEAKER) (test 22 meq/L 22-29 sjoy=760) BLOOD UREA NITROGEN 24 mg/dL 7-21 (BEAKER) (test uabv=474) CREATININE (BEAKER) (test 1.18 mg/dL 0.57-1.25 bvih=970) GLUCOSE RANDOM (BEAKER) 128 mg/dL 70-105 (test rbth=875) CALCIUM (BEAKER) (test 9.5 mg/dL 8.4-10.2 gfiz=257) EGFR (BEAKER) (test 54 mL/min/1.73 sq m ESTIMATED GFR IS NOT ceey=8912) ACCURATE CREATININE CLEARANCE IN PREDICTING GLOMERULAR FILTRATION RATE. ESTIMATED GFR IS NOT APPLICABLE FOR DIALYSIS PATIENTS. [id number] 06:39:00 Test Item Value Reference Range Comments PARTIAL THROMBOPLASTIN TIME (BEAKER) (test 109.7 seconds 22.5-36.0 hzwv=207) CBC (HEMOGRAM ONLY)2018-12-13 06:19:00 Test Item Value Reference Range Comments WHITE BLOOD CELL COUNT (BEAKER) (test mlkt=391) 5.2 K/ L 3.5-10.5 RED BLOOD CELL COUNT (BEAKER) (test opil=226) 3.38 M/ L 3.93-5.22 HEMOGLOBIN (BEAKER) (test gyci=412) 10.8 GM/DL 11.2-15.7 HEMATOCRIT (BEAKER) (test beos=309) 35.6 % 34.1-44.9 MEAN CORPUSCULAR VOLUME (BEAKER) (test dxps=107) 105.3 fL 79.4-94.8 MEAN CORPUSCULAR HEMOGLOBIN (BEAKER) (test 32.0 pg 25.6-32.2 wztv=888) MEAN CORPUSCULAR HEMOGLOBIN CONC (BEAKER) (test 30.3 GM/DL 32.2-35.5 prsq=396) RED CELL DISTRIBUTION WIDTH (BEAKER) (test 14.5 % 11.7-14.4 lqlp=124) PLATELET COUNT (BEAKER) (test mvzv=023) 190 K/CU MM 150-450 MEAN PLATELET VOLUME (BEAKER) (test twpe=867) 12.4 fL 9.4-12.3 NUCLEATED RED BLOOD CELLS (BEAKER) (test 0 /100 WBC 0-0 hiwg=530) POCT-GLUCOSE [id number] 23:24:00 Test Item Value Reference Range Comments POC-GLUCOSE METER (BEAKER) 157 mg/dL 70-110 TESTED AT [address] (test bjhg=1884) [place] [address] POCT-GLUCOSE [id number] 18:13:00 Test Item Value Reference Range Comments POC-GLUCOSE METER (BEAKER) 135 mg/dL 70-110 TESTED AT [address] (test qfim=1635) [place] [address] POCT-GLUCOSE [id number] 13:04:00 Test Item Value Reference Range Comments POC-GLUCOSE METER (BEAKER) 147 mg/dL 70-110 TESTED AT [address] (test nbyw=3897) [place] [address] [id number] 12:49:00 Test Item Value Reference Range Comments PARTIAL THROMBOPLASTIN TIME (BEAKER) (test 92.6 seconds 22.5-36.0 qnxj=862) POCT-GLUCOSE [id number] 08:55:00 Test Item Value Reference Range Comments POC-GLUCOSE METER (BEAKER) 144 mg/dL 70-110 TESTED AT [address] (test ohsl=8152) [place] [address] [id number] 05:30:00 Test Item Value Reference Range Comments PARTIAL THROMBOPLASTIN TIME (BEAKER) (test 84.5 seconds 22.5-36.0 aewv=765) [id number] 02:15:00 Test Item Value Reference Range Comments PARTIAL THROMBOPLASTIN TIME (BEAKER) (test 160.4 seconds 22.5-36.0 ujlw=540) [id number] 01:51:00 Test Item Value Reference Range Comments MAGNESIUM (BEAKER) (test zczz=972) 1.7 mg/dL 1.6-2.6 BASIC METABOLIC [id number] 01:51:00 Test Item Value Reference Range Comments SODIUM (BEAKER) (test 137 meq/L 136-145 nmfu=560) POTASSIUM (BEAKER) (test 4.1 meq/L 3.5-5.1 kldr=476) CHLORIDE (BEAKER) (test 106 meq/L 98-107 qhkn=638) CO2 (BEAKER) (test 21 meq/L 22-29 dysm=747) BLOOD UREA NITROGEN 25 mg/dL 7-21 (BEAKER) (test obxn=126) CREATININE (BEAKER) (test 1.25 mg/dL 0.57-1.25 retb=306) GLUCOSE RANDOM (BEAKER) 101 mg/dL 70-105 (test wyof=436) CALCIUM (BEAKER) (test 9.2 mg/dL 8.4-10.2 sqrf=107) EGFR (BEAKER) (test 50 mL/min/1.73 sq m ESTIMATED GFR IS NOT pigl=2369) ACCURATE CREATININE CLEARANCE IN PREDICTING GLOMERULAR FILTRATION RATE. ESTIMATED GFR IS NOT APPLICABLE FOR DIALYSIS PATIENTS. CBC (HEMOGRAM ONLY)2018-12-12 01:24:00 Test Item Value Reference Range Comments WHITE BLOOD CELL COUNT (BEAKER) (test gbyb=275) 6.0 K/ L 3.5-10.5 RED BLOOD CELL COUNT (BEAKER) (test rjta=768) 2.99 M/ L 3.93-5.22 HEMOGLOBIN (BEAKER) (test ihbn=918) 9.7 GM/DL 11.2-15.7 HEMATOCRIT (BEAKER) (test clnh=984) 30.4 % 34.1-44.9 MEAN CORPUSCULAR VOLUME (BEAKER) (test kqcj=926) 101.7 fL 79.4-94.8 MEAN CORPUSCULAR HEMOGLOBIN (BEAKER) (test 32.4 pg 25.6-32.2 zkfm=466) MEAN CORPUSCULAR HEMOGLOBIN CONC (BEAKER) (test 31.9 GM/DL 32.2-35.5 pzyr=864) RED CELL DISTRIBUTION WIDTH (BEAKER) (test 14.5 % 11.7-14.4 xucu=013) PLATELET COUNT (BEAKER) (test knnh=773) 197 K/CU MM 150-450 MEAN PLATELET VOLUME (BEAKER) (test lcvz=877) 12.0 fL 9.4-12.3 NUCLEATED RED BLOOD CELLS (BEAKER) (test 0 /100 WBC 0-0 ybdc=667) POCT-GLUCOSE [id number] 18:06:00 Test Item Value Reference Range Comments POC-GLUCOSE METER (BEAKER) 110 mg/dL 70-110 TESTED AT [address] (test jeec=6165) [facility] [address] [id number] 17:35:00 Test Item Value Reference Range Comments PARTIAL THROMBOPLASTIN TIME (BEAKER) (test 49.2 seconds 22.5-36.0 hwey=001) POCT-GLUCOSE [id number] 14:02:00 Test Item Value Reference Range Comments POC-GLUCOSE METER (BEAKER) 215 mg/dL 70-110 TESTED AT [address] (test ojxt=7719) [place] [address] [id number] 11:09:00 Test Item Value Reference Range Comments PARTIAL THROMBOPLASTIN TIME (BEAKER) (test 52.4 seconds 22.5-36.0 qxuj=359) Prior to initiating heparinPOCT-GLUCOSE [id number] 08:34:00 Test Item Value Reference Range Comments POC-GLUCOSE METER (BEAKER) 121 mg/dL 70-110 TESTED AT [address] (test kodx=3900) [place] [id number] POCT-GLUCOSE [id number] 21:46:00 Test Item Value Reference Range Comments POC-GLUCOSE METER (BEAKER) 132 mg/dL 70-110 TESTED AT [address] (test hbzt=6632) [place] [id number] POCT-GLUCOSE [id number] 17:30:00 Test Item Value Reference Range Comments POC-GLUCOSE METER (BEAKER) 146 mg/dL 70-110 TESTED AT [address] (test fxaf=0128) [place] [id number] POCT-GLUCOSE [id number] 13:44:00 Test Item Value Reference Range Comments POC-GLUCOSE METER (BEAKER) 124 mg/dL 70-110 TESTED AT [address] (test kjbj=4912) [place] [id number] POCT-GLUCOSE [id number] 09:03:00 Test Item Value Reference Range Comments POC-GLUCOSE METER (BEAKER) 136 mg/dL 70-110 TESTED AT [address] (test garh=9995) [place] [address] CBC W/PLT COUNT & AUTO [id number] 07:24:00 Test Item Value Reference Range Comments WHITE BLOOD CELL COUNT (BEAKER) (test nmzp=931) 5.8 K/ L 3.5-10.5 RED BLOOD CELL COUNT (BEAKER) (test oudz=507) 3.17 M/ L 3.93-5.22 HEMOGLOBIN (BEAKER) (test yjuf=588) 10.4 GM/DL 11.2-15.7 HEMATOCRIT (BEAKER) (test clzk=285) 33.1 % 34.1-44.9 MEAN CORPUSCULAR VOLUME (BEAKER) (test pnvi=373) 104.4 fL 79.4-94.8 MEAN CORPUSCULAR HEMOGLOBIN (BEAKER) (test 32.8 pg 25.6-32.2 pybv=438) MEAN CORPUSCULAR HEMOGLOBIN CONC (BEAKER) (test 31.4 GM/DL 32.2-35.5 unmr=784) RED CELL DISTRIBUTION WIDTH (BEAKER) (test 14.5 % 11.7-14.4 wqmr=173) PLATELET COUNT (BEAKER) (test iqte=964) 218 K/CU MM 150-450 MEAN PLATELET VOLUME (BEAKER) (test vswt=312) 12.2 fL 9.4-12.3 NUCLEATED RED BLOOD CELLS (BEAKER) (test 0 /100 WBC 0-0 sywu=590) NEUTROPHILS RELATIVE PERCENT (BEAKER) (test 66 % mlwt=542) LYMPHOCYTES RELATIVE PERCENT (BEAKER) (test 25 % zizn=856) MONOCYTES RELATIVE PERCENT (BEAKER) (test 6 % wlxj=403) EOSINOPHILS RELATIVE PERCENT (BEAKER) (test 2 % eaet=230) BASOPHILS RELATIVE PERCENT (BEAKER) (test 1 % bcks=356) NEUTROPHILS ABSOLUTE COUNT (BEAKER) (test 3.84 K/ L 1.56-6.13 lajc=846) LYMPHOCYTES ABSOLUTE COUNT (BEAKER) (test 1.45 K/ L 1.18-3.74 bajz=233) MONOCYTES ABSOLUTE COUNT (BEAKER) (test 0.34 K/ L 0.24-0.36 ebcy=882) EOSINOPHILS ABSOLUTE COUNT (BEAKER) (test 0.13 K/ L 0.04-0.36 zbde=795) BASOPHILS ABSOLUTE COUNT (BEAKER) (test 0.04 K/ L 0.01-0.08 wgxq=566) IMMATURE GRANULOCYTES-RELATIVE PERCENT (BEAKER) 0 % 0-1 (test jroz=8485) [id number] 06:43:00 Test Item Value Reference Range Comments MAGNESIUM (BEAKER) (test dojo=140) 1.4 mg/dL 1.6-2.6 BASIC METABOLIC [id number] 06:43:00 Test Item Value Reference Range Comments SODIUM (BEAKER) (test 140 meq/L 136-145 qmxt=909) POTASSIUM (BEAKER) (test 4.1 meq/L 3.5-5.1 nqzt=115) CHLORIDE (BEAKER) (test 108 meq/L 98-107 kfrx=541) CO2 (BEAKER) (test 21 meq/L 22-29 nzdd=055) BLOOD UREA NITROGEN 22 mg/dL 7-21 (BEAKER) (test gnjx=614) CREATININE (BEAKER) (test 1.08 mg/dL 0.57-1.25 rnob=223) GLUCOSE RANDOM (BEAKER) 101 mg/dL 70-105 (test qtfw=368) CALCIUM (BEAKER) (test 9.2 mg/dL 8.4-10.2 zjmt=389) EGFR (BEAKER) (test 59 mL/min/1.73 sq m ESTIMATED GFR IS NOT svbf=8082) ACCURATE CREATININE CLEARANCE IN PREDICTING GLOMERULAR FILTRATION RATE. ESTIMATED GFR IS NOT APPLICABLE FOR DIALYSIS PATIENTS. [id number] 06:36:00 Test Item Value Reference Range Comments PARTIAL THROMBOPLASTIN TIME (BEAKER) (test 70.2 seconds 22.5-36.0 kvct=389) TROPONIN [id number] 00:58:00 Test Item Value Reference Range Comments TROPONIN I (BEAKER) (test pnro=526) 0.03 ng/mL 0.00-0.03 Troponin I (TnI) levels must be interpreted in the context of the presenting symptoms and the clinical findings. Elevated TnI levels indicate myocardial damage, but are not specific for ischemic heart disease. Elevated TnI levels are seen in patients with other cardiac conditions (including myocarditis and congestive heart failure), and slight TnI elevations occur in patients with other conditions, including sepsis, renal failure, acidosis, acute neurological disease, and persistent tachyarrhythmia.[id number] 00:23:00 Test Item Value Reference Range Comments PARTIAL THROMBOPLASTIN TIME (BEAKER) (test 46.8 seconds 22.5-36.0 mvfm=304) Prior to initiating heparinPOCT-GLUCOSE [id number] 23:28:00 Test Item Value Reference Range Comments POC-GLUCOSE METER (BEAKER) 96 mg/dL 70-110 TESTED AT [address] (test jpgb=8582) [facility] [id number] TROPONIN [id number] 18:41:00 Test Item Value Reference Range Comments TROPONIN I (BEAKER) (test jqte=259) 0.02 ng/mL 0.00-0.03 Troponin I (TnI) levels must be interpreted in the context of the presenting symptoms and the clinical findings. Elevated TnI levels indicate myocardial damage, but are not specific for ischemic heart disease. Elevated TnI levels are seen in patients with other cardiac conditions (including myocarditis and congestive heart failure), and slight TnI elevations occur in patients with other conditions, including sepsis, renal failure, acidosis, acute neurological disease, and persistent tachyarrhythmia.POCT-GLUCOSE [id number] 17:53:00 Test Item Value Reference Range Comments POC-GLUCOSE METER (BEAKER) 132 mg/dL 70-110 TESTED AT [address] (test cegd=7099) [place] [id number] POCT-GLUCOSE [id number] 14:30:00 Test Item Value Reference Range Comments POC-GLUCOSE METER (BEAKER) 179 mg/dL 70-110 TESTED AT [address] (test czja=3974) [place] [id number] TROPONIN [id number] 12:32:00 Test Item Value Reference Range Comments TROPONIN I (BEAKER) (test gikd=231) 0.03 ng/mL 0.00-0.03 Troponin I (TnI) levels must be interpreted in the context of the presenting symptoms and the clinical findings. Elevated TnI levels indicate myocardial damage, but are not specific for ischemic heart disease. Elevated TnI levels are seen in patients with other cardiac conditions (including myocarditis and congestive heart failure), and slight TnI elevations occur in patients with other conditions, including sepsis, renal failure, acidosis, acute neurological disease, and persistent tachyarrhythmia.[id number] 12:22:00 Test Item Value Reference Range Comments MAGNESIUM (BEAKER) (test pjlz=950) 1.1 mg/dL 1.6-2.6 BASIC METABOLIC [id number] 12:22:00 Test Item Value Reference Range Comments SODIUM (BEAKER) (test 138 meq/L 136-145 pbdr=894) POTASSIUM (BEAKER) (test 4.1 meq/L 3.5-5.1 lzec=646) CHLORIDE (BEAKER) (test 105 meq/L 98-107 fuup=211) CO2 (BEAKER) (test 24 meq/L 22-29 phfv=021) BLOOD UREA NITROGEN 22 mg/dL 7-21 (BEAKER) (test aogn=694) CREATININE (BEAKER) (test 1.44 mg/dL 0.57-1.25 oqlt=614) GLUCOSE RANDOM (BEAKER) 134 mg/dL 70-105 (test hvor=625) CALCIUM (BEAKER) (test 9.4 mg/dL 8.4-10.2 grus=413) EGFR (BEAKER) (test 43 mL/min/1.73 sq m ESTIMATED GFR IS NOT ratv=6851) ACCURATE CREATININE CLEARANCE IN PREDICTING GLOMERULAR FILTRATION RATE. ESTIMATED GFR IS NOT APPLICABLE FOR DIALYSIS PATIENTS. POCT-GLUCOSE [id number] 08:39:00 Test Item Value Reference Range Comments POC-GLUCOSE METER (BEAKER) 121 mg/dL 70-110 TESTED AT [facility] [address] [place] [address] (test tqne=9571) [facility] [address] CBC W/PLT COUNT & AUTO [id number] 06:20:00 Test Item Value Reference Range Comments WHITE BLOOD CELL COUNT (BEAKER) (test qccm=369) 4.9 K/ L 3.5-10.5 RED BLOOD CELL COUNT (BEAKER) (test mfiy=615) 3.28 M/ L 3.93-5.22 HEMOGLOBIN (BEAKER) (test ncbo=683) 10.6 GM/DL 11.2-15.7 HEMATOCRIT (BEAKER) (test oaqn=870) 33.8 % 34.1-44.9 MEAN CORPUSCULAR VOLUME (BEAKER) (test kvkd=403) 103.0 fL 79.4-94.8 MEAN CORPUSCULAR HEMOGLOBIN (BEAKER) (test 32.3 pg 25.6-32.2 igrk=579) MEAN CORPUSCULAR HEMOGLOBIN CONC (BEAKER) (test 31.4 GM/DL 32.2-35.5 trpd=397) RED CELL DISTRIBUTION WIDTH (BEAKER) (test 14.5 % 11.7-14.4 jvdh=459) PLATELET COUNT (BEAKER) (test xfdg=104) 232 K/CU MM 150-450 MEAN PLATELET VOLUME (BEAKER) (test pmnk=574) 11.9 fL 9.4-12.3 NUCLEATED RED BLOOD CELLS (BEAKER) (test 0 /100 WBC 0-0 ldkf=302) NEUTROPHILS RELATIVE PERCENT (BEAKER) (test 56 % hvaa=229) LYMPHOCYTES RELATIVE PERCENT (BEAKER) (test 32 % jftv=357) MONOCYTES RELATIVE PERCENT (BEAKER) (test 8 % phsd=425) EOSINOPHILS RELATIVE PERCENT (BEAKER) (test 3 % xout=762) BASOPHILS RELATIVE PERCENT (BEAKER) (test 1 % otiw=351) NEUTROPHILS ABSOLUTE COUNT (BEAKER) (test 2.76 K/ L 1.56-6.13 aein=301) LYMPHOCYTES ABSOLUTE COUNT (BEAKER) (test 1.57 K/ L 1.18-3.74 qdha=178) MONOCYTES ABSOLUTE COUNT (BEAKER) (test 0.39 K/ L 0.24-0.36 whho=545) EOSINOPHILS ABSOLUTE COUNT (BEAKER) (test 0.13 K/ L 0.04-0.36 djwn=097) BASOPHILS ABSOLUTE COUNT (BEAKER) (test 0.04 K/ L 0.01-0.08 eqbp=881) IMMATURE GRANULOCYTES-RELATIVE PERCENT (BEAKER) 1 % 0-1 (test efgr=7489) POCT-GLUCOSE [id number] 23:04:00 Test Item Value Reference Range Comments POC-GLUCOSE METER (BEAKER) 106 mg/dL 70-110 TESTED AT [address] (test pxwu=9216) [facility] [address] POCT-GLUCOSE [id number] 19:31:00 Test Item Value Reference Range Comments POC-GLUCOSE METER (BEAKER) 142 mg/dL 70-110 TESTED AT [address] (test rolc=7508) [facility] [address] POCT-GLUCOSE [id number] 12:27:00 Test Item Value Reference Range Comments POC-GLUCOSE METER (BEAKER) 101 mg/dL 70-110 TESTED AT [address] (test ghqs=1449) [facility] [address] POCT-GLUCOSE [id number] 09:34:00 Test Item Value Reference Range Comments POC-GLUCOSE METER (BEAKER) 126 mg/dL 70-110 TESTED AT [place] [id number] [facility] (test ogic=7852) [facility] [address] POCT-GLUCOSE [id number] 07:54:00 Test Item Value Reference Range Comments POC-GLUCOSE METER (BEAKER) 101 mg/dL 70-110 TESTED AT [place] [address] [facility] (test atlr=5823) [facility] [address] BASIC METABOLIC [id number] 05:55:00 Test Item Value Reference Range Comments SODIUM (BEAKER) (test 139 meq/L 136-145 cqmj=444) POTASSIUM (BEAKER) (test 4.2 meq/L 3.5-5.1 davg=393) CHLORIDE (BEAKER) (test 105 meq/L 98-107 oevr=167) CO2 (BEAKER) (test 25 meq/L 22-29 ommm=977) BLOOD UREA NITROGEN 17 mg/dL 7-21 (BEAKER) (test ipfu=281) CREATININE (BEAKER) (test 1.08 mg/dL 0.57-1.25 ergy=882) GLUCOSE RANDOM (BEAKER) 85 mg/dL 70-105 (test ifob=168) CALCIUM (BEAKER) (test 9.3 mg/dL 8.4-10.2 rmze=869) EGFR (BEAKER) (test 59 mL/min/1.73 sq m ESTIMATED GFR IS NOT gxtq=3100) ACCURATE CREATININE CLEARANCE IN PREDICTING GLOMERULAR FILTRATION RATE. ESTIMATED GFR IS NOT APPLICABLE FOR DIALYSIS PATIENTS. CBC W/PLT COUNT & AUTO [id number] 05:06:00 Test Item Value Reference Range Comments WHITE BLOOD CELL COUNT (BEAKER) (test qlai=415) 4.5 K/ L 3.5-10.5 RED BLOOD CELL COUNT (BEAKER) (test nlcy=572) 3.42 M/ L 3.93-5.22 HEMOGLOBIN (BEAKER) (test savh=984) 11.1 GM/DL 11.2-15.7 HEMATOCRIT (BEAKER) (test upcq=833) 35.2 % 34.1-44.9 MEAN CORPUSCULAR VOLUME (BEAKER) (test qaed=571) 102.9 fL 79.4-94.8 MEAN CORPUSCULAR HEMOGLOBIN (BEAKER) (test 32.5 pg 25.6-32.2 voua=461) MEAN CORPUSCULAR HEMOGLOBIN CONC (BEAKER) (test 31.5 GM/DL 32.2-35.5 fpjz=252) RED CELL DISTRIBUTION WIDTH (BEAKER) (test 14.6 % 11.7-14.4 xqrn=022) PLATELET COUNT (BEAKER) (test byik=750) 258 K/CU MM 150-450 MEAN PLATELET VOLUME (BEAKER) (test bomj=020) 11.7 fL 9.4-12.3 NUCLEATED RED BLOOD CELLS (BEAKER) (test 0 /100 WBC 0-0 elgg=183) NEUTROPHILS RELATIVE PERCENT (BEAKER) (test 62 % ypnn=347) LYMPHOCYTES RELATIVE PERCENT (BEAKER) (test 26 % ejfi=846) MONOCYTES RELATIVE PERCENT (BEAKER) (test 7 % vyhb=936) EOSINOPHILS RELATIVE PERCENT (BEAKER) (test 3 % ehcf=087) BASOPHILS RELATIVE PERCENT (BEAKER) (test 0 % sbdk=929) NEUTROPHILS ABSOLUTE COUNT (BEAKER) (test 2.77 K/ L 1.56-6.13 ebdm=774) LYMPHOCYTES ABSOLUTE COUNT (BEAKER) (test 1.17 K/ L 1.18-3.74 zeln=837) MONOCYTES ABSOLUTE COUNT (BEAKER) (test 0.33 K/ L 0.24-0.36 ziaq=002) EOSINOPHILS ABSOLUTE COUNT (BEAKER) (test 0.15 K/ L 0.04-0.36 xlkl=697) BASOPHILS ABSOLUTE COUNT (BEAKER) (test 0.02 K/ L 0.01-0.08 jaoj=801) IMMATURE GRANULOCYTES-RELATIVE PERCENT (BEAKER) 1 % 0-1 (test fyww=4698) POCT-GLUCOSE [id number] 23:07:00 Test Item Value Reference Range Comments POC-GLUCOSE METER (BEAKER) 102 mg/dL 70-110 TESTED AT [address] (test xgoj=9294) [facility] [address] POCT-GLUCOSE [id number] 17:29:00 Test Item Value Reference Range Comments POC-GLUCOSE METER (BEAKER) 114 mg/dL 70-110 TESTED AT [address] (test ejzm=7744) [facility] [address] POCT-GLUCOSE [id number] 12:02:00 Test Item Value Reference Range Comments POC-GLUCOSE METER (BEAKER) 146 mg/dL 70-110 TESTED AT [address] (test tmot=3105) [facility] [address] POCT-GLUCOSE [id number] 08:14:00 Test Item Value Reference Range Comments POC-GLUCOSE METER (BEAKER) 101 mg/dL 70-110 TESTED AT [address] (test yzbm=1382) [facility] [address] POCT-GLUCOSE [id number] 23:17:00 Test Item Value Reference Range Comments POC-GLUCOSE METER (BEAKER) 112 mg/dL 70-110 TESTED AT [address] (test dkii=1621) [facility] [address] POCT-GLUCOSE [id number] 17:06:00 Test Item Value Reference Range Comments POC-GLUCOSE METER (BEAKER) 114 mg/dL 70-110 TESTED AT [address] (test vwax=4382) [facility] [address] POCT-GLUCOSE [id number] 13:08:00 Test Item Value Reference Range Comments POC-GLUCOSE METER (BEAKER) 110 mg/dL 70-110 TESTED AT [address] (test upbh=1894) [facility] [address] POCT-GLUCOSE [id number] 08:26:00 Test Item Value Reference Range Comments POC-GLUCOSE METER (BEAKER) 151 mg/dL 70-110 TESTED AT [address] (test thrf=5571) [facility] [address] POCT-GLUCOSE [id number] 23:22:00 Test Item Value Reference Range Comments POC-GLUCOSE METER (BEAKER) 116 mg/dL 70-110 TESTED AT [address] (test muzu=5732) [facility] [address] POCT-GLUCOSE [id number] 19:01:00 Test Item Value Reference Range Comments POC-GLUCOSE METER (BEAKER) 145 mg/dL 70-110 TESTED AT [address] (test ukkg=3244) [facility] [address] POCT-GLUCOSE [id number] 13:42:00 Test Item Value Reference Range Comments POC-GLUCOSE METER (BEAKER) 119 mg/dL 70-110 TESTED AT [address] (test knnq=3994) [facility] [address] TISSUE [id number] 12:34:00Surgical Pathology Report Case: [id number] Authorizing Provider: Chio Frey, Collected: [id number] OrderingLocation: [facility] Received: 2018 1029 [employer]IOPERAT[employer] SERVICES Pathologist: Reese Soares MD Specimen: Plaque, Right Carotid ARTERY, RIGHT CAROTID, ENDARTERECTOMY:CALCIFIC ATHEROSCLEROTIC PLAQUE Signing Pathologist Direct Phone Line: [phone] signed by Reese Soares MD on 2018 at 12:34 [id number]; [id number] stenosis Right carotid plaque Specimen is received in saline labeled with the patient's information and labeled "right carotid plaque" and consists of three irregular fragments of calcified azar-red tissue measuring 2.5 x 2 x 0.3 cm in aggregate. Employee Relations Administrator sections are submitted in A1 for decalcification.CG/ew PERFORMEDPOCT-GLUCOSE [id number] 10:06:00 Test Item Value Reference Range Comments POC-GLUCOSE METER (BEAKER) 137 mg/dL 70-110 TESTED AT [address] (test eudk=9389) [facility] [address] C. DIFFICILE GDH [id number] 09:08:00 Test Item Value Reference Range Comments CDT TOXIN (test Negative Negative zfwq=[id number]) CDT GDH ANTIGEN (test Positive Negative C. difficile present but toxin nkzk=[id number]) not detected. Indicates colonization with non-toxigenic strain or level of toxin below detectable levels. No need for enteric isolation. Treatment is rarely needed (only when strong clinical suspicion for Clostridium difficile infection) Testing performed by [employer] Rapid Cassette Assay. For GDH, published sensitivity of the assay is 98.7% compared to cytotoxicity testing. For Toxin AB, published sensitivity is 87.8% and specificity 99.4% compared to cytotoxicity testing.Verification of kit performance was done by the [facility] Microbiology Lab prior to clinical use.BASIC METABOLIC [id number] 07:16:00 Test Item Value Reference Range Comments SODIUM (BEAKER) (test 141 meq/L 136-145 vihj=173) POTASSIUM (BEAKER) (test 4.1 meq/L 3.5-5.1 ejmy=905) CHLORIDE (BEAKER) (test 109 meq/L 98-107 jmue=946) CO2 (BEAKER) (test 24 meq/L 22-29 vbww=295) BLOOD UREA NITROGEN 15 mg/dL 7-21 (BEAKER) (test jzzr=962) CREATININE (BEAKER) (test 0.95 mg/dL 0.57-1.25 fotj=674) GLUCOSE RANDOM (BEAKER) 105 mg/dL 70-105 (test nrmd=435) CALCIUM (BEAKER) (test 9.3 mg/dL 8.4-10.2 roij=167) EGFR (BEAKER) (test 69 mL/min/1.73 sq m ESTIMATED GFR IS NOT tllm=4405) ACCURATE CREATININE CLEARANCE IN PREDICTING GLOMERULAR FILTRATION RATE. ESTIMATED GFR IS NOT APPLICABLE FOR DIALYSIS PATIENTS. CBC (HEMOGRAM ONLY)2018-12-05 06:56:00 Test Item Value Reference Range Comments WHITE BLOOD CELL COUNT (BEAKER) (test abwj=243) 6.9 K/ L 3.5-10.5 RED BLOOD CELL COUNT (BEAKER) (test zznk=853) 3.26 M/ L 3.93-5.22 HEMOGLOBIN (BEAKER) (test lhgt=192) 10.7 GM/DL 11.2-15.7 HEMATOCRIT (BEAKER) (test nsdw=559) 33.4 % 34.1-44.9 MEAN CORPUSCULAR VOLUME (BEAKER) (test yjjt=378) 102.5 fL 79.4-94.8 MEAN CORPUSCULAR HEMOGLOBIN (BEAKER) (test 32.8 pg 25.6-32.2 tjld=225) MEAN CORPUSCULAR HEMOGLOBIN CONC (BEAKER) (test 32.0 GM/DL 32.2-35.5 aowv=641) RED CELL DISTRIBUTION WIDTH (BEAKER) (test 14.2 % 11.7-14.4 whni=839) PLATELET COUNT (BEAKER) (test bldm=841) 289 K/CU MM 150-450 MEAN PLATELET VOLUME (BEAKER) (test oovn=449) 11.2 fL 9.4-12.3 NUCLEATED RED BLOOD CELLS (BEAKER) (test 0 /100 WBC 0-0 idso=696) POCT-GLUCOSE [id number] 22:15:00 Test Item Value Reference Range Comments POC-GLUCOSE METER (BEAKER) 112 mg/dL 70-110 TESTED AT [address] (test bftf=6101) [facility] [address] POCT-GLUCOSE [id number] 18:17:00 Test Item Value Reference Range Comments POC-GLUCOSE METER (BEAKER) 149 mg/dL 70-110 TESTED AT [address] (test hcif=6110) [facility] [address] POCT-GLUCOSE [id number] 13:17:00 Test Item Value Reference Range Comments POC-GLUCOSE METER (BEAKER) 160 mg/dL 70-110 TESTED AT [address] (test pwfi=3096) [facility] [address] POCT-GLUCOSE [id number] 08:01:00 Test Item Value Reference Range Comments POC-GLUCOSE METER (BEAKER) 110 mg/dL 70-110 TESTED AT [address] (test juxo=2206) [place] [id number] 05:54:00 Test Item Value Reference Range Comments MAGNESIUM (BEAKER) (test 1.9 mg/dL 1.6-2.6 Specimen slightly hemolyzed sdcp=935) BASIC METABOLIC [id number] 05:54:00 Test Item Value Reference Range Comments SODIUM (BEAKER) (test 141 meq/L 136-145 txtx=140) POTASSIUM (BEAKER) (test 4.4 meq/L 3.5-5.1 Specimen slightly xtxx=035) hemolyzed CHLORIDE (BEAKER) (test 109 meq/L 98-107 fgqe=276) CO2 (BEAKER) (test 23 meq/L 22-29 mznv=743) BLOOD UREA NITROGEN 18 mg/dL 7-21 (BEAKER) (test mlmk=492) CREATININE (BEAKER) (test 0.91 mg/dL 0.57-1.25 Specimen slightly mxhh=703) hemolyzed GLUCOSE RANDOM (BEAKER) 87 mg/dL 70-105 (test fzwb=056) CALCIUM (BEAKER) (test 9.5 mg/dL 8.4-10.2 mmex=424) EGFR (BEAKER) (test 72 mL/min/1.73 sq m ESTIMATED GFR IS NOT nhva=5459) ACCURATE CREATININE CLEARANCE IN PREDICTING GLOMERULAR FILTRATION RATE. ESTIMATED GFR IS NOT APPLICABLE FOR DIALYSIS PATIENTS. CBC (HEMOGRAM ONLY)2018-12-04 05:42:00 Test Item Value Reference Range Comments WHITE BLOOD CELL COUNT (BEAKER) (test uiiu=359) 6.2 K/ L 3.5-10.5 RED BLOOD CELL COUNT (BEAKER) (test gwua=825) 3.39 M/ L 3.93-5.22 HEMOGLOBIN (BEAKER) (test iero=701) 11.2 GM/DL 11.2-15.7 HEMATOCRIT (BEAKER) (test dlaz=103) 34.9 % 34.1-44.9 MEAN CORPUSCULAR VOLUME (BEAKER) (test wtlf=272) 102.9 fL 79.4-94.8 MEAN CORPUSCULAR HEMOGLOBIN (BEAKER) (test 33.0 pg 25.6-32.2 qufe=239) MEAN CORPUSCULAR HEMOGLOBIN CONC (BEAKER) (test 32.1 GM/DL 32.2-35.5 zhzo=206) RED CELL DISTRIBUTION WIDTH (BEAKER) (test 14.4 % 11.7-14.4 fkuh=064) PLATELET COUNT (BEAKER) (test dysw=039) 299 K/CU MM 150-450 MEAN PLATELET VOLUME (BEAKER) (test vqld=538) 11.5 fL 9.4-12.3 NUCLEATED RED BLOOD CELLS (BEAKER) (test 0 /100 WBC 0-0 lbnt=107) POCT-GLUCOSE [id number] 22:44:00 Test Item Value Reference Range Comments POC-GLUCOSE METER (BEAKER) 91 mg/dL 70-110 TESTED AT [address] (test llcg=8356) [facility] [address] POCT-GLUCOSE [id number] 17:10:00 Test Item Value Reference Range Comments POC-GLUCOSE METER (BEAKER) 151 mg/dL 70-110 TESTED AT [address] (test pwdv=1935) [facility] [address] POCT-GLUCOSE [id number] 12:46:00 Test Item Value Reference Range Comments POC-GLUCOSE METER (BEAKER) 166 mg/dL 70-110 TESTED AT [address] (test tqno=3128) [facility] [address] POCT-GLUCOSE [id number] 08:21:00 Test Item Value Reference Range Comments POC-GLUCOSE METER (BEAKER) 147 mg/dL 70-110 TESTED AT [facility] [address] (test ebbm=8539) [facility] [address] CBC (HEMOGRAM ONLY)2018-12-03 07:53:00 Test Item Value Reference Range Comments WHITE BLOOD CELL COUNT (BEAKER) (test ifvu=984) 6.1 K/ L 3.5-10.5 RED BLOOD CELL COUNT (BEAKER) (test sllp=546) 3.30 M/ L 3.93-5.22 HEMOGLOBIN (BEAKER) (test uxrx=596) 10.7 GM/DL 11.2-15.7 HEMATOCRIT (BEAKER) (test qtjd=441) 33.6 % 34.1-44.9 MEAN CORPUSCULAR VOLUME (BEAKER) (test bdqv=368) 101.8 fL 79.4-94.8 MEAN CORPUSCULAR HEMOGLOBIN (BEAKER) (test 32.4 pg 25.6-32.2 uakd=247) MEAN CORPUSCULAR HEMOGLOBIN CONC (BEAKER) (test 31.8 GM/DL 32.2-35.5 uyiq=817) RED CELL DISTRIBUTION WIDTH (BEAKER) (test 14.0 % 11.7-14.4 jiyr=365) PLATELET COUNT (BEAKER) (test wfqy=732) 252 K/CU MM 150-450 MEAN PLATELET VOLUME (BEAKER) (test ktjj=060) 11.9 fL 9.4-12.3 NUCLEATED RED BLOOD CELLS (BEAKER) (test 0 /100 WBC 0-0 xraq=133) [id number] 06:48:00 Test Item Value Reference Range Comments MAGNESIUM (BEAKER) (test iume=339) 1.5 mg/dL 1.6-2.6 BASIC METABOLIC [id number] 06:48:00 Test Item Value Reference Range Comments SODIUM (BEAKER) (test 142 meq/L 136-145 vasv=874) POTASSIUM (BEAKER) (test 4.1 meq/L 3.5-5.1 lkcm=320) CHLORIDE (BEAKER) (test 108 meq/L 98-107 kzsc=353) CO2 (BEAKER) (test 25 meq/L 22-29 onvc=222) BLOOD UREA NITROGEN 19 mg/dL 7-21 (BEAKER) (test okkq=926) CREATININE (BEAKER) (test 0.95 mg/dL 0.57-1.25 nbgl=425) GLUCOSE RANDOM (BEAKER) 119 mg/dL 70-105 (test odiw=884) CALCIUM (BEAKER) (test 9.1 mg/dL 8.4-10.2 oeir=703) EGFR (BEAKER) (test 69 mL/min/1.73 sq m ESTIMATED GFR IS NOT gxus=6682) ACCURATE CREATININE CLEARANCE IN PREDICTING GLOMERULAR FILTRATION RATE. ESTIMATED GFR IS NOT APPLICABLE FOR DIALYSIS PATIENTS. POCT-GLUCOSE [id number] 23:20:00 Test Item Value Reference Range Comments POC-GLUCOSE METER (BEAKER) 125 mg/dL 70-110 TESTED AT [address] (test yzcy=2244) [place] [id number] POCT-GLUCOSE [id number] 17:33:00 Test Item Value Reference Range Comments POC-GLUCOSE METER (BEAKER) 136 mg/dL 70-110 TESTED AT [address] (test dzoh=5801) [place] [address] POCT-GLUCOSE [id number] 11:43:00 Test Item Value Reference Range Comments POC-GLUCOSE METER (BEAKER) 168 mg/dL 70-110 TESTED AT [address] (test wvod=3533) [place] [address] POCT-GLUCOSE [id number] 08:52:00 Test Item Value Reference Range Comments POC-GLUCOSE METER (BEAKER) 165 mg/dL 70-110 TESTED AT [address] (test sopl=7067) [place] [address] [id number] 05:18:00 Test Item Value Reference Range Comments MAGNESIUM (BEAKER) (test dyqt=493) 1.8 mg/dL 1.6-2.6 BASIC METABOLIC [id number] 05:18:00 Test Item Value Reference Range Comments SODIUM (BEAKER) (test 139 meq/L 136-145 oaca=594) POTASSIUM (BEAKER) (test 4.3 meq/L 3.5-5.1 tone=682) CHLORIDE (BEAKER) (test 107 meq/L 98-107 leny=666) CO2 (BEAKER) (test 24 meq/L 22-29 fpvc=590) BLOOD UREA NITROGEN 18 mg/dL 7-21 (BEAKER) (test vfzl=997) CREATININE (BEAKER) (test 0.98 mg/dL 0.57-1.25 cgfz=221) GLUCOSE RANDOM (BEAKER) 138 mg/dL 70-105 (test tqhl=408) CALCIUM (BEAKER) (test 8.8 mg/dL 8.4-10.2 axwb=623) EGFR (BEAKER) (test 66 mL/min/1.73 sq m ESTIMATED GFR IS NOT uqpc=2186) ACCURATE CREATININE CLEARANCE IN PREDICTING GLOMERULAR FILTRATION RATE. ESTIMATED GFR IS NOT APPLICABLE FOR DIALYSIS PATIENTS. CBC (HEMOGRAM ONLY)2018-12-02 05:06:00 Test Item Value Reference Range Comments WHITE BLOOD CELL COUNT (BEAKER) (test nvkp=569) 5.9 K/ L 3.5-10.5 RED BLOOD CELL COUNT (BEAKER) (test jlvg=382) 3.14 M/ L 3.93-5.22 HEMOGLOBIN (BEAKER) (test wyoh=925) 10.2 GM/DL 11.2-15.7 HEMATOCRIT (BEAKER) (test pric=532) 32.6 % 34.1-44.9 MEAN CORPUSCULAR VOLUME (BEAKER) (test sqig=267) 103.8 fL 79.4-94.8 MEAN CORPUSCULAR HEMOGLOBIN (BEAKER) (test 32.5 pg 25.6-32.2 rvxn=592) MEAN CORPUSCULAR HEMOGLOBIN CONC (BEAKER) (test 31.3 GM/DL 32.2-35.5 uywv=980) RED CELL DISTRIBUTION WIDTH (BEAKER) (test 14.3 % 11.7-14.4 alme=699) PLATELET COUNT (BEAKER) (test kfep=214) 206 K/CU MM 150-450 MEAN PLATELET VOLUME (BEAKER) (test qicn=703) 11.8 fL 9.4-12.3 NUCLEATED RED BLOOD CELLS (BEAKER) (test 0 /100 WBC 0-0 inzc=198) POCT-GLUCOSE [id number] 22:03:00 Test Item Value Reference Range Comments POC-GLUCOSE METER (BEAKER) 206 mg/dL 70-110 TESTED AT [facility] [address] [facility] (test chcw=7112) [facility] [address] POCT-GLUCOSE [id number] 21:51:00 Test Item Value Reference Range Comments POC-GLUCOSE METER (BEAKER) 185 mg/dL 70-110 TESTED AT [facility] [address] [place] [address] (test syaq=9347) [facility] [address] POCT-GLUCOSE [id number] 12:51:00 Test Item Value Reference Range Comments POC-GLUCOSE METER (BEAKER) 180 mg/dL 70-110 TESTED AT [address] (test gfen=8824) [facility] [address] POCT-GLUCOSE [id number] 09:51:00 Test Item Value Reference Range Comments POC-GLUCOSE METER (BEAKER) 171 mg/dL 70-110 TESTED AT [address] (test divb=5832) [facility] [address] [id number] 06:42:00 Test Item Value Reference Range Comments MAGNESIUM (BEAKER) (test lngp=637) 1.6 mg/dL 1.6-2.6 BASIC METABOLIC [id number] 06:42:00 Test Item Value Reference Range Comments SODIUM (BEAKER) (test 140 meq/L 136-145 ouwi=984) POTASSIUM (BEAKER) (test 3.9 meq/L 3.5-5.1 nzfs=281) CHLORIDE (BEAKER) (test 108 meq/L 98-107 dauv=239) CO2 (BEAKER) (test 25 meq/L 22-29 yjgj=113) BLOOD UREA NITROGEN 12 mg/dL 7-21 (BEAKER) (test bbwz=749) CREATININE (BEAKER) (test 0.91 mg/dL 0.57-1.25 vgjp=909) GLUCOSE RANDOM (BEAKER) 133 mg/dL 70-105 (test nnwy=907) CALCIUM (BEAKER) (test 9.2 mg/dL 8.4-10.2 tgkx=309) EGFR (BEAKER) (test 72 mL/min/1.73 sq m ESTIMATED GFR IS NOT khrn=6412) ACCURATE CREATININE CLEARANCE IN PREDICTING GLOMERULAR FILTRATION RATE. ESTIMATED GFR IS NOT APPLICABLE FOR DIALYSIS PATIENTS. HEPATIC FUNCTION [id number] 06:42:00 Test Item Value Reference Range Comments TOTAL PROTEIN (BEAKER) (test clfv=589) 6.6 gm/dL 6.0-8.3 ALBUMIN (BEAKER) (test pfaf=6261) 3.2 g/dL 3.5-5.0 BILIRUBIN TOTAL (BEAKER) (test vvyw=057) 0.6 mg/dL 0.2-1.2 BILIRUBIN DIRECT (BEAKER) (test igkh=106) 0.3 mg/dL 0.1-0.5 ALKALINE PHOSPHATASE (BEAKER) (test bofy=015) 56 U/L 40-150 AST (SGOT) (BEAKER) (test wmeg=833) 35 U/L 5-34 ALT (SGPT) (BEAKER) (test cqgw=912) 32 U/L 6-55 CBC W/PLT COUNT & AUTO [id number] 05:25:00 Test Item Value Reference Range Comments WHITE BLOOD CELL COUNT (BEAKER) (test dsnd=989) 6.0 K/ L 3.5-10.5 RED BLOOD CELL COUNT (BEAKER) (test zkbt=817) 2.96 M/ L 3.93-5.22 HEMOGLOBIN (BEAKER) (test jwtn=248) 9.7 GM/DL 11.2-15.7 HEMATOCRIT (BEAKER) (test vywp=547) 30.9 % 34.1-44.9 MEAN CORPUSCULAR VOLUME (BEAKER) (test xfjv=321) 104.4 fL 79.4-94.8 MEAN CORPUSCULAR HEMOGLOBIN (BEAKER) (test 32.8 pg 25.6-32.2 eltq=930) MEAN CORPUSCULAR HEMOGLOBIN CONC (BEAKER) (test 31.4 GM/DL 32.2-35.5 chfp=562) RED CELL DISTRIBUTION WIDTH (BEAKER) (test 14.3 % 11.7-14.4 wijz=511) PLATELET COUNT (BEAKER) (test ittm=138) 185 K/CU MM 150-450 MEAN PLATELET VOLUME (BEAKER) (test kzaz=823) 12.3 fL 9.4-12.3 NUCLEATED RED BLOOD CELLS (BEAKER) (test 0 /100 WBC 0-0 qocy=059) NEUTROPHILS RELATIVE PERCENT (BEAKER) (test 61 % tgzj=367) LYMPHOCYTES RELATIVE PERCENT (BEAKER) (test 26 % nonl=325) MONOCYTES RELATIVE PERCENT (BEAKER) (test 8 % rthp=449) EOSINOPHILS RELATIVE PERCENT (BEAKER) (test 3 % ohft=328) BASOPHILS RELATIVE PERCENT (BEAKER) (test 1 % qvbj=400) NEUTROPHILS ABSOLUTE COUNT (BEAKER) (test 3.61 K/ L 1.56-6.13 xbni=654) LYMPHOCYTES ABSOLUTE COUNT (BEAKER) (test 1.57 K/ L 1.18-3.74 ytym=934) MONOCYTES ABSOLUTE COUNT (BEAKER) (test 0.49 K/ L 0.24-0.36 bzak=183) EOSINOPHILS ABSOLUTE COUNT (BEAKER) (test 0.17 K/ L 0.04-0.36 qqgh=962) BASOPHILS ABSOLUTE COUNT (BEAKER) (test 0.04 K/ L 0.01-0.08 ksqz=818) IMMATURE GRANULOCYTES-RELATIVE PERCENT (BEAKER) 2 % 0-1 (test poeu=8663) POCT-GLUCOSE [id number] 21:31:00 Test Item Value Reference Range Comments POC-GLUCOSE METER (BEAKER) 143 mg/dL 70-110 TESTED AT [address] (test nhkp=2313) [place] [address] POCT-GLUCOSE [id number] 18:26:00 Test Item Value Reference Range Comments POC-GLUCOSE METER (BEAKER) 252 mg/dL 70-110 TESTED AT [address] (test ueaq=5853) [place] [address] POCT-GLUCOSE [id number] 12:40:00 Test Item Value Reference Range Comments POC-GLUCOSE METER (BEAKER) 161 mg/dL 70-110 TESTED AT [address] (test rjfi=3530) [place] [address] HEMOGLOBIN [id number] 11:08:00 Test Item Value Reference Range Comments HEMOGLOBIN A1C (BEAKER) (test ggfd=769) 7.2 % 4.3-6.1 POCT-GLUCOSE [id number] 08:17:00 Test Item Value Reference Range Comments POC-GLUCOSE METER (BEAKER) 162 mg/dL 70-110 TESTED AT [address] (test lajk=2358) [place] [address] POCT-GLUCOSE [id number] 07:48:00 Test Item Value Reference Range Comments POC-GLUCOSE METER (BEAKER) 158 mg/dL 70-110 TESTED AT [address] (test iyjh=0462) [place] [address] [id number] 06:55:00 Test Item Value Reference Range Comments MAGNESIUM (BEAKER) (test jyry=171) 1.4 mg/dL 1.6-2.6 BASIC METABOLIC [id number] 06:55:00 Test Item Value Reference Range Comments SODIUM (BEAKER) (test 140 meq/L 136-145 cpkh=325) POTASSIUM (BEAKER) (test 3.9 meq/L 3.5-5.1 zyoq=548) CHLORIDE (BEAKER) (test 107 meq/L 98-107 dfwb=225) CO2 (BEAKER) (test 24 meq/L 22-29 hsnx=140) BLOOD UREA NITROGEN 12 mg/dL 7-21 (BEAKER) (test fojd=650) CREATININE (BEAKER) (test 0.93 mg/dL 0.57-1.25 hpik=353) GLUCOSE RANDOM (BEAKER) 143 mg/dL 70-105 (test fzka=754) CALCIUM (BEAKER) (test 9.0 mg/dL 8.4-10.2 fifx=350) EGFR (BEAKER) (test 70 mL/min/1.73 sq m ESTIMATED GFR IS NOT uwue=6411) ACCURATE CREATININE CLEARANCE IN PREDICTING GLOMERULAR FILTRATION RATE. ESTIMATED GFR IS NOT APPLICABLE FOR DIALYSIS PATIENTS. LIPID [id number] 06:55:00 Test Item Value Reference Range Comments TRIGLYCERIDES (BEAKER) (test qlfy=690) 120 mg/dL CHOLESTEROL (BEAKER) (test gopy=517) 123 mg/dL HDL CHOLESTEROL (BEAKER) (test bric=620) 21 mg/dL LDL CHOLESTEROL CALCULATED (BEAKER) (test 78 mg/dL nwdu=861) Triglyceride Reference Range: Low Risk <150 Borderline 150- 199 High Risk 200-499 Very High Risk >=500Cholesterol Reference Range: Low Risk <200 Borderline 200-239 High Risk > 240HDL Cholesterol Reference Range: Low Risk >=60 High Risk <40LDL Cholesterol Reference Range: Optimal <100 Near Optimal 100-129 Borderline 130-159 High 160-189 Very High >=190CBC W/PLT COUNT & AUTO [id number] 06:39:00 Test Item Value Reference Range Comments WHITE BLOOD CELL COUNT (BEAKER) (test ytev=575) 6.1 K/ L 3.5-10.5 RED BLOOD CELL COUNT (BEAKER) (test ujvx=895) 3.35 M/ L 3.93-5.22 HEMOGLOBIN (BEAKER) (test jtqm=071) 10.9 GM/DL 11.2-15.7 HEMATOCRIT (BEAKER) (test cwpc=489) 34.4 % 34.1-44.9 MEAN CORPUSCULAR VOLUME (BEAKER) (test fizv=115) 102.7 fL 79.4-94.8 MEAN CORPUSCULAR HEMOGLOBIN (BEAKER) (test 32.5 pg 25.6-32.2 wjvy=483) MEAN CORPUSCULAR HEMOGLOBIN CONC (BEAKER) (test 31.7 GM/DL 32.2-35.5 zyoq=812) RED CELL DISTRIBUTION WIDTH (BEAKER) (test 14.3 % 11.7-14.4 ztxx=324) PLATELET COUNT (BEAKER) (test kozh=698) 182 K/CU MM 150-450 MEAN PLATELET VOLUME (BEAKER) (test zhpl=645) 12.9 fL 9.4-12.3 NUCLEATED RED BLOOD CELLS (BEAKER) (test 0 /100 WBC 0-0 bmwr=620) NEUTROPHILS RELATIVE PERCENT (BEAKER) (test 70 % jyud=487) LYMPHOCYTES RELATIVE PERCENT (BEAKER) (test 18 % zxqf=718) MONOCYTES RELATIVE PERCENT (BEAKER) (test 7 % bzdk=014) EOSINOPHILS RELATIVE PERCENT (BEAKER) (test 3 % wacy=313) BASOPHILS RELATIVE PERCENT (BEAKER) (test 0 % masx=629) NEUTROPHILS ABSOLUTE COUNT (BEAKER) (test 4.29 K/ L 1.56-6.13 heoy=622) LYMPHOCYTES ABSOLUTE COUNT (BEAKER) (test 1.10 K/ L 1.18-3.74 hiyr=575) MONOCYTES ABSOLUTE COUNT (BEAKER) (test 0.44 K/ L 0.24-0.36 pxkt=310) EOSINOPHILS ABSOLUTE COUNT (BEAKER) (test 0.18 K/ L 0.04-0.36 igju=411) BASOPHILS ABSOLUTE COUNT (BEAKER) (test 0.02 K/ L 0.01-0.08 xruw=353) IMMATURE GRANULOCYTES-RELATIVE PERCENT (BEAKER) 2 % 0-1 (test swqm=6787) POCT-GLUCOSE [id number] 21:50:00 Test Item Value Reference Range Comments POC-GLUCOSE METER (BEAKER) 185 mg/dL 70-110 TESTED AT [address] (test oiwl=3702) [facility] [id number] POCT-GLUCOSE [id number] 17:26:00 Test Item Value Reference Range Comments POC-GLUCOSE METER (BEAKER) 201 mg/dL 70-110 TESTED AT [address] (test tiga=0507) [place] [id number] POCT-GLUCOSE [id number] 15:25:00 Test Item Value Reference Range Comments POC-GLUCOSE METER (BEAKER) 136 mg/dL 70-110 TESTED AT [address] (test rpiw=7223) [place] [id number] POCT-GLUCOSE [id number] 13:38:00 Test Item Value Reference Range Comments POC-GLUCOSE METER (BEAKER) 136 mg/dL 70-110 TESTED AT [address] (test ndvc=9194) [place] [id number] POCT-GLUCOSE [id number] 11:05:00 Test Item Value Reference Range Comments POC-GLUCOSE METER (BEAKER) 183 mg/dL 70-110 TESTED AT [address] (test hoha=9883) [place] [id number] 04:18:00 Test Item Value Reference Range Comments MAGNESIUM (BEAKER) (test seyb=943) 1.4 mg/dL 1.6-2.6 BASIC METABOLIC [id number] 04:18:00 Test Item Value Reference Range Comments SODIUM (BEAKER) (test 142 meq/L 136-145 hvnp=701) POTASSIUM (BEAKER) (test 3.6 meq/L 3.5-5.1 pzuf=163) CHLORIDE (BEAKER) (test 111 meq/L 98-107 zxrh=368) CO2 (BEAKER) (test 22 meq/L 22-29 ovug=897) BLOOD UREA NITROGEN 21 mg/dL 7-21 (BEAKER) (test mpda=243) CREATININE (BEAKER) (test 0.95 mg/dL 0.57-1.25 jich=074) GLUCOSE RANDOM (BEAKER) 128 mg/dL 70-105 (test hjtj=129) CALCIUM (BEAKER) (test 8.6 mg/dL 8.4-10.2 pxre=343) EGFR (BEAKER) (test 69 mL/min/1.73 sq m ESTIMATED GFR IS NOT tktg=0484) ACCURATE CREATININE CLEARANCE IN PREDICTING GLOMERULAR FILTRATION RATE. ESTIMATED GFR IS NOT APPLICABLE FOR DIALYSIS PATIENTS. CBC W/PLT COUNT & AUTO [id number] 03:47:00 Test Item Value Reference Range Comments WHITE BLOOD CELL COUNT (BEAKER) (test haqu=010) 6.1 K/ L 3.5-10.5 RED BLOOD CELL COUNT (BEAKER) (test icae=491) 2.88 M/ L 3.93-5.22 HEMOGLOBIN (BEAKER) (test xiuh=413) 9.6 GM/DL 11.2-15.7 HEMATOCRIT (BEAKER) (test xych=154) 29.2 % 34.1-44.9 MEAN CORPUSCULAR VOLUME (BEAKER) (test zqbe=838) 101.4 fL 79.4-94.8 MEAN CORPUSCULAR HEMOGLOBIN (BEAKER) (test 33.3 pg 25.6-32.2 sawf=735) MEAN CORPUSCULAR HEMOGLOBIN CONC (BEAKER) (test 32.9 GM/DL 32.2-35.5 lift=858) RED CELL DISTRIBUTION WIDTH (BEAKER) (test 14.0 % 11.7-14.4 rnxs=613) PLATELET COUNT (BEAKER) (test jmwh=160) 126 K/CU MM 150-450 MEAN PLATELET VOLUME (BEAKER) (test sbzl=213) 12.6 fL 9.4-12.3 NUCLEATED RED BLOOD CELLS (BEAKER) (test 0 /100 WBC 0-0 mcqf=245) NEUTROPHILS RELATIVE PERCENT (BEAKER) (test 73 % ccqb=905) LYMPHOCYTES RELATIVE PERCENT (BEAKER) (test 15 % usog=220) MONOCYTES RELATIVE PERCENT (BEAKER) (test 8 % yruu=491) EOSINOPHILS RELATIVE PERCENT (BEAKER) (test 2 % xwfy=343) BASOPHILS RELATIVE PERCENT (BEAKER) (test 0 % qopx=517) NEUTROPHILS ABSOLUTE COUNT (BEAKER) (test 4.44 K/ L 1.56-6.13 kgno=931) LYMPHOCYTES ABSOLUTE COUNT (BEAKER) (test 0.90 K/ L 1.18-3.74 vyyt=040) MONOCYTES ABSOLUTE COUNT (BEAKER) (test 0.48 K/ L 0.24-0.36 lkel=304) EOSINOPHILS ABSOLUTE COUNT (BEAKER) (test 0.14 K/ L 0.04-0.36 aprs=513) BASOPHILS ABSOLUTE COUNT (BEAKER) (test 0.02 K/ L 0.01-0.08 apva=060) IMMATURE GRANULOCYTES-RELATIVE PERCENT (BEAKER) 1 % 0-1 (test nywd=5614) BASIC METABOLIC [id number] 17:45:00 Test Item Value Reference Range Comments SODIUM (BEAKER) (test 141 meq/L 136-145 wsii=974) POTASSIUM (BEAKER) (test 3.9 meq/L 3.5-5.1 yqsv=051) CHLORIDE (BEAKER) (test 110 meq/L 98-107 awcj=840) CO2 (BEAKER) (test 25 meq/L 22-29 aicr=663) BLOOD UREA NITROGEN 28 mg/dL 7-21 (BEAKER) (test iurj=366) CREATININE (BEAKER) (test 1.18 mg/dL 0.57-1.25 wwti=658) GLUCOSE RANDOM (BEAKER) 147 mg/dL 70-105 (test rebp=730) CALCIUM (BEAKER) (test 9.0 mg/dL 8.4-10.2 npqa=886) EGFR (BEAKER) (test 54 mL/min/1.73 sq m ESTIMATED GFR IS NOT djmb=8475) ACCURATE CREATININE CLEARANCE IN PREDICTING GLOMERULAR FILTRATION RATE. ESTIMATED GFR IS NOT APPLICABLE FOR DIALYSIS PATIENTS. POCT-GLUCOSE [id number] 14:36:00 Test Item Value Reference Range Comments POC-GLUCOSE METER (BEAKER) 158 mg/dL 70-110 TESTED AT [facility] [address] [facility] (test ltqu=3277) [facility] [address] [id number] 10:50:00 Test Item Value Reference Range Comments PHOSPHORUS (BEAKER) (test agzo=508) 3.1 mg/dL 2.3-4.7 [id number] 10:50:00 Test Item Value Reference Range Comments MAGNESIUM (BEAKER) (test fiyl=583) 1.4 mg/dL 1.6-2.6 BASIC METABOLIC [id number] 10:50:00 Test Item Value Reference Range Comments SODIUM (BEAKER) (test 137 meq/L 136-145 nkel=625) POTASSIUM (BEAKER) (test 3.6 meq/L 3.5-5.1 oryd=983) CHLORIDE (BEAKER) (test 107 meq/L 98-107 anvw=902) CO2 (BEAKER) (test 18 meq/L 22-29 owdw=253) BLOOD UREA NITROGEN 36 mg/dL 7-21 (BEAKER) (test wjny=242) CREATININE (BEAKER) (test 1.54 mg/dL 0.57-1.25 gmyu=362) GLUCOSE RANDOM (BEAKER) 139 mg/dL 70-105 (test yjjs=742) CALCIUM (BEAKER) (test 8.7 mg/dL 8.4-10.2 jxpr=018) EGFR (BEAKER) (test 39 mL/min/1.73 sq m ESTIMATED GFR IS NOT esfx=7328) ACCURATE CREATININE CLEARANCE IN PREDICTING GLOMERULAR FILTRATION RATE. ESTIMATED GFR IS NOT APPLICABLE FOR DIALYSIS PATIENTS. LACTIC ACID, ARTERIAL, WHOLE [id number] 10:47:00 Test Item Value Reference Range Comments LACTATE BLOOD ARTERIAL (2) (BEAKER) (test 0.7 mmol/L 0.5-2.2 yymd=3868) BLOOD GAS, [id number] 10:36:00 Test Item Value Reference Range Comments PH ARTERIAL (BEAKER) (test hwlw=312) 7.41 7.35-7.45 PCO2 ARTERIAL (BEAKER) (test yczt=940) 33 mmHg 35-45 PO2 ARTERIAL (BEAKER) (test tgci=293) 157 mmHg 80-90 O2 SATURATION ARTERIAL (BEAKER) (test caxb=542) 99.1 % 96.0-97.0 HCO3 ARTERIAL (BEAKER) (test kzbc=610) 20 mmol/L 21-29 BASE EXCESS ARTERIAL (BEAKER) (test endw=295) -3.5 mmol/L -2.0-3.0 PATIENT TEMPERATURE (BEAKER) (test offm=1429) 36.8 C FIO2 (BEAKER) (test bjhq=0841) 32.0 % CALCIUM, [id number] 10:36:00 Test Item Value Reference Range Comments CALCIUM IONIZED (BEAKER) (test nxza=106) 1.12 mmol/L 1.12-1.27 PH, BLOOD (BEAKER) (test gioq=1227) 7.41 CBC W/PLT COUNT & AUTO [id number] 10:32:00 Test Item Value Reference Range Comments WHITE BLOOD CELL COUNT (BEAKER) (test pwjo=316) 8.9 K/ L 3.5-10.5 RED BLOOD CELL COUNT (BEAKER) (test tzin=154) 3.38 M/ L 3.93-5.22 HEMOGLOBIN (BEAKER) (test nojg=747) 11.2 GM/DL 11.2-15.7 HEMATOCRIT (BEAKER) (test twlp=808) 34.3 % 34.1-44.9 MEAN CORPUSCULAR VOLUME (BEAKER) (test ngss=129) 101.5 fL 79.4-94.8 MEAN CORPUSCULAR HEMOGLOBIN (BEAKER) (test 33.1 pg 25.6-32.2 awyi=268) MEAN CORPUSCULAR HEMOGLOBIN CONC (BEAKER) (test 32.7 GM/DL 32.2-35.5 hkhc=972) RED CELL DISTRIBUTION WIDTH (BEAKER) (test 14.4 % 11.7-14.4 jfuq=211) PLATELET COUNT (BEAKER) (test fpzc=887) 142 K/CU MM 150-450 MEAN PLATELET VOLUME (BEAKER) (test xlri=219) 12.9 fL 9.4-12.3 NUCLEATED RED BLOOD CELLS (BEAKER) (test 0 /100 WBC 0-0 xway=594) NEUTROPHILS RELATIVE PERCENT (BEAKER) (test 77 % cysn=767) LYMPHOCYTES RELATIVE PERCENT (BEAKER) (test 12 % jnqq=083) MONOCYTES RELATIVE PERCENT (BEAKER) (test 8 % qxjk=936) EOSINOPHILS RELATIVE PERCENT (BEAKER) (test 1 % jxyp=491) BASOPHILS RELATIVE PERCENT (BEAKER) (test 0 % hrdg=074) NEUTROPHILS ABSOLUTE COUNT (BEAKER) (test 6.87 K/ L 1.56-6.13 eanv=394) LYMPHOCYTES ABSOLUTE COUNT (BEAKER) (test 1.10 K/ L 1.18-3.74 upeg=993) MONOCYTES ABSOLUTE COUNT (BEAKER) (test 0.69 K/ L 0.24-0.36 ylvb=831) EOSINOPHILS ABSOLUTE COUNT (BEAKER) (test 0.10 K/ L 0.04-0.36 yctz=915) BASOPHILS ABSOLUTE COUNT (BEAKER) (test 0.03 K/ L 0.01-0.08 lltn=902) IMMATURE GRANULOCYTES-RELATIVE PERCENT (BEAKER) 1 % 0-1 (test pgrb=4373) COMPREHENSIVE METABOLIC [id number] 07:28:00 Test Item Value Reference Range Comments TOTAL PROTEIN (BEAKER) 7.4 gm/dL 6.0-8.3 Specimen slightly (test xyrq=795) hemolyzed ALBUMIN (BEAKER) (test 3.6 g/dL 3.5-5.0 Specimen slightly yitl=3198) hemolyzed ALKALINE PHOSPHATASE 77 U/L 40-150 (BEAKER) (test ojak=621) BILIRUBIN TOTAL (BEAKER) 0.8 mg/dL 0.2-1.2 Specimen slightly (test yayb=403) hemolyzed SODIUM (BEAKER) (test 140 meq/L 136-145 nxvt=708) POTASSIUM (BEAKER) (test 4.2 meq/L 3.5-5.1 Specimen slightly fiyg=987) hemolyzed CHLORIDE (BEAKER) (test 106 meq/L 98-107 siyl=135) CO2 (BEAKER) (test 24 meq/L 22-29 csjg=200) BLOOD UREA NITROGEN 41 mg/dL 7-21 (BEAKER) (test ghfk=865) CREATININE (BEAKER) (test 1.76 mg/dL 0.57-1.25 Specimen slightly eedj=224) hemolyzed GLUCOSE RANDOM (BEAKER) 98 mg/dL 70-105 (test unlt=944) CALCIUM (BEAKER) (test 9.9 mg/dL 8.4-10.2 mcbb=114) AST (SGOT) (BEAKER) (test 143 U/L 5-34 Specimen slightly qpnp=980) hemolyzed ALT (SGPT) (BEAKER) (test 112 U/L 6-55 Specimen slightly lhie=917) hemolyzed EGFR (BEAKER) (test 34 mL/min/1.73 sq m ESTIMATED GFR IS NOT uafv=5572) ACCURATE CREATININE CLEARANCE IN PREDICTING GLOMERULAR FILTRATION RATE. ESTIMATED GFR IS NOT APPLICABLE FOR DIALYSIS PATIENTS. RAD, CHEST, 1 VIEW, NON [id number] 07:18:00Reason for exam:->CV pre- opShould this be performed at the bedside?->YesFINAL REPORT INDICATION: CV pre-op COMPARISON: None TECHNIQUE: Single frontalview of the chest. FINDINGS: Lungs and pleura: Clear lungs. No effusion.Heart and mediastinum: Normal heart size. Unremarkable mediastinal contours.Osseous structures: No acute abnormality.Other: None. IMPRESSION: No acute intrathoracic abnormality. Signed: JR Victor M, Juan Jose Skinner Verified Date/Time: 11/28/2018 07:18:00 Reading Location: [facility] Radiology Reading Room [id number] 07:13:00 Test Item Value Reference Range Comments PARTIAL THROMBOPLASTIN TIME (BEAKER) (test 38.8 seconds 22.5-36.0 caef=534) PROTHROMBIN [id number] 07:12:00 Test Item Value Reference Range Comments PROTIME (BEAKER) (test nbfw=564) 14.3 seconds 11.7-14.7 INR (BEAKER) (test txux=736) 1.1 <=5.9 RECOMMENDED COUMADIN/WARFARIN INR THERAPY RANGESSTANDARD DOSE: 2.0 - 3.0 Includes: PROPHYLAXIS forvenous thrombosis, systemic embolization; TREATMENT for venous thrombosis and/or pulmonary embolus.HIGH RISK: Target INR is 2.5-3.5 for patients with mechanical heart valves.CBC W/PLT COUNT & AUTO [id number] 07:04:00 Test Item Value Reference Range Comments WHITE BLOOD CELL COUNT (BEAKER) (test rfks=402) 6.0 K/ L 3.5-10.5 RED BLOOD CELL COUNT (BEAKER) (test ligv=697) 3.34 M/ L 3.93-5.22 HEMOGLOBIN (BEAKER) (test ckuk=642) 11.2 GM/DL 11.2-15.7 HEMATOCRIT (BEAKER) (test gkos=528) 34.2 % 34.1-44.9 MEAN CORPUSCULAR VOLUME (BEAKER) (test attj=396) 102.4 fL 79.4-94.8 MEAN CORPUSCULAR HEMOGLOBIN (BEAKER) (test 33.5 pg 25.6-32.2 ysoo=699) MEAN CORPUSCULAR HEMOGLOBIN CONC (BEAKER) (test 32.7 GM/DL 32.2-35.5 lutr=973) RED CELL DISTRIBUTION WIDTH (BEAKER) (test 14.6 % 11.7-14.4 pmzt=169) PLATELET COUNT (BEAKER) (test pokt=610) 151 K/CU MM 150-450 MEAN PLATELET VOLUME (BEAKER) (test bgab=192) 13.5 fL 9.4-12.3 NUCLEATED RED BLOOD CELLS (BEAKER) (test 0 /100 WBC 0-0 xojk=526) NEUTROPHILS RELATIVE PERCENT (BEAKER) (test 68 % xzaj=116) LYMPHOCYTES RELATIVE PERCENT (BEAKER) (test 19 % eoqh=599) MONOCYTES RELATIVE PERCENT (BEAKER) (test 10 % iwnz=317) EOSINOPHILS RELATIVE PERCENT (BEAKER) (test 2 % hyvs=966) BASOPHILS RELATIVE PERCENT (BEAKER) (test 0 % wern=274) NEUTROPHILS ABSOLUTE COUNT (BEAKER) (test 4.08 K/ L 1.56-6.13 qpzw=340) LYMPHOCYTES ABSOLUTE COUNT (BEAKER) (test 1.13 K/ L 1.18-3.74 jhum=316) MONOCYTES ABSOLUTE COUNT (BEAKER) (test 0.58 K/ L 0.24-0.36 kcll=806) EOSINOPHILS ABSOLUTE COUNT (BEAKER) (test 0.12 K/ L 0.04-0.36 ztku=221) BASOPHILS ABSOLUTE COUNT (BEAKER) (test 0.02 K/ L 0.01-0.08 qsqg=567) IMMATURE GRANULOCYTES-RELATIVE PERCENT (BEAKER) 1 % 0-1 (test jdgi=8847)
--- NOTE | 2019-04-25 14:48 | RAD REPORT ---
EXAM DESCRIPTION: CTAbdomen Pelvis W Contrast - 04/25/2019 2:30 pm CLINICAL HISTORY: Abdominal pain. lower abdominal pain, IV ONLY COMPARISON: Abdomen Pelvis W Contrast dated 07/10/2017 TECHNIQUE: Biphasic CT imaging of the abdomen and pelvis was performed with 100 ml non-ionic IV cont rast. All CT scans are performed using dose optimization technique as appropriate and may include automated exposure control or mA/KV adjustment according to patient size. FINDINGS: A small left pleural effusion is seen. Mild atelectasis in both lung bases. The liver demonstrates no focal mass or biliary dilatation. Multiple gallstones are present in the ga llbladder. The spleen, pancreas, adrenal glands and kidneys are within normal limits. No bowel obstruction, free air, free fluid or abscess. Moderate stool is noted throughout the colon. There is a particularly large volume of stool in the rectum. The appendix is normal. No evidence of significant lymphadenopathy. Moderate lumbar degenerative changes. Changes of previous aortobifemoral bypass noted. IMPRESSION: Rectal fecal impaction is likely with stercoral colitis. Cholelithiasis. Small left pleural effusion.
[2019-04-25] MEDS ORDERED: MAGNESIUM CITRATE 300 ML BOT ONE (15:29)
--- NOTE | 2019-04-25 17:35 | EDPHYS ---
Physician Documentation [facility] Name: Estefani Leiva Age: 78 yrs Sex: Female : 1940 Arrival Date: 04/25/2019 Time: 11:19 Bed 15 Private MD: ED Physician Cliff Campuzano HPI: 04/25 12:49 This 78 yrs old Black Female presents to ER via Wheelchair with complaints of Abdominal jmm Pain, High Blood Pressure, High Blood Sugar. 12:49 The patient presents with abdominal pain in the lower abdomen. Onset: The jmm symptoms/episode began/occurred today. The symptoms do not radiate. This is a 78 year old female with a history of DM, CVA, HLP, HTN that presents to the ED with complaints of lower abdominal pain. Denies vomiting or diarrhea. patient recently on antibiotics for diarrhea and uti 2 weeks prior. . Historical: - Allergies: 11:22 NKA; sv - PMHx: 11:22 chronic diarrhea; CVA; Diabetes - NIDDM; Hyperlipidemia; Hypertension; sv - PSHx: 11:22 Hysterectomy; sv - Immunization history:: Adult Immunizations up to date. - Social history:: Smoking status: Patient/guardian denies using tobacco. - Ebola Screening: : No symptoms or risks identified at this time. ROS: 12:49 Constitutional: Negative for fever, chills, and weight loss, Cardiovascular: Negative jmm for chest pain, palpitations, and edema, Respiratory: Negative for shortness of breath, cough, wheezing, and pleuritic chest pain. 12:49 Abdomen/GI: Positive for abdominal pain. 12:49 All other systems are negative. Exam: 12:49 Head/Face: atraumatic. Chest/axilla: Normal chest wall appearance and motion. jmm Cardiovascular: Regular rate and rhythm. No edema appreciated Respiratory: Normal respirations, no respiratory distress appreciated 12:49 Constitutional: The patient appears alert, awake, uncomfortable. 12:49 Abdomen/GI: Inspection: abdomen appears normal, Bowel sounds: normal, Palpation: soft, mild abdominal tenderness, in the suprapubic area. 12:49 Skin: Appearance: Color: normal in color. 12:49 Neuro: Orientation: is normal, Mentation: is normal, Memory: is normal. 12:49 Psych: Behavior/mood is pleasant, cooperative. Vital Signs: 11:22 BP 146 / 78; Pulse 99; Resp 24; Temp 97.6; Pulse Ox 98% ; Weight 71.21 kg; Height 5 ft. sv 10 in. (177.80 cm); Pain 7/10; 13:30 BP 161 / 69; Pulse 87; Resp 16; Pulse Ox 98% ; bp 15:24 BP 173 / 71; Pulse 85; Resp 16; Pulse Ox 98% ; bp 16:30 BP 112 / 66; Pulse 48; Resp 14; Pulse Ox 97% ; bp 18:14 BP 167 / 96; Pulse 90; Resp 14; Temp 98; Pulse Ox 97% ; bp 11:22 Body Mass Index 22.53 (71.21 kg, 177.80 cm) sv MDM: 12:49 Patient medically screened. [facility] 17:18 Data reviewed: vital signs, nurses notes. Counseling: I had a detailed discussion with [facility] the patient and/or guardian regarding: the historical points, exam findings, and any diagnostic results supporting the discharge/admit diagnosis, the need for outpatient follow up, to return to the emergency department if symptoms worsen or persist or if there are any questions or concerns that arise at home. 17:18 ED course: Patient was manually dis impacted in the ED. Patient has decreased pain in [facility] the ED. Advised to follow up with GI for further evaluation and otherwise given strict return precautions. Patient understood and agrees with the plan of care. . 04/25 12:49 Order name: Basic Metabolic Panel; Complete Time: 14:11 [facility] 04/25 12:49 Order name: CBC with Diff; Complete Time: 14:11 [facility] 04/25 12:49 Order name: Creatinine for Radiology; Complete Time: 14:11 [facility] 04/25 12:49 Order name: Hepatic Function; Complete Time: 14:11 [facility] 04/25 12:49 Order name: Lipase; Complete Time: 14:11 [facility] 04/25 12:49 Order name: CT Abd/Pelvis - W/Contrast; Complete Time: 14:50 [facility] 04/25 12:49 Order name: IV Saline Lock; Complete Time: 13:16 [facility] 04/25 12:49 Order name: Labs collected and sent; Complete Time: 13:31 [facility] 04/25 15:41 Order name: Gown patient; Complete Time: 16:07 [facility] 04/25 15:41 Order name: Gila. Order: disimpaction; Complete Time: 16:48 [facility] Administered Medications: 13:30 Drug: morphine 2 mg Route: IVP; Site: left forearm; bp 14:54 Follow up: Response: No adverse reaction bp 13:30 Drug: Zofran 4 mg Route: IVP; Site: left forearm; bp 14:54 Follow up: Response: No adverse reaction bp 15:00 Drug: Magnesium Citrate Liquid 300 ml Route: PO; bp 15:16 Follow up: Response: No adverse reaction bp Point of Care Testing: Blood Glucose: 11:22 Blood Glucose: 161 mg/dL; sv Ranges: Critical Glucose Levels:Adult <50 mg/dl or >400 mg/dl <40 mg/dl or >180 mg/dl Disposition: 04/25/19 17:35 Discharged to Home. Impression: Fecal impaction, Colitis. - Condition is Stable. - Discharge Instructions: Fecal Impaction, Colitis. - Prescriptions for Augmentin 875- 125 mg Oral Tablet - take 1 tablet by ORAL route every 12 hours for 10 days; 20 tablet. Flagyl 500 mg Oral Tablet - take 1 tablet by ORAL route every 8 hours for 10 days; 30 tablet. - Medication Reconciliation Form, Thank You Letter, Antibiotic Education, Prescription Opioid Use form. - Follow up: Haresh Pack MD; When: 2 - 3 days; Reason: Recheck today's complaints, Continuance of care, Re-evaluation by your physician. Addendum: 04/28/2019 06:56 Co-signature as Attending Physician, Cliff Campuzano MD I agree with the assessment and k dr plan of care. Signatures: Dispatcher [employer] Evy Ling, RN RN Cliff Medina MD MD kdr Mickail, Joel, PA PA [facility] Heber Smith, RN RN bp Corrections: (The following items were deleted from the chart) 04/25 18:27 17:35 04/25/2019 17:35 Discharged to Home. Impression: Fecal impaction; Colitis. bp Condition is Stable. Forms are Medication Reconciliation Form, Thank You Letter, Antibiotic Education, Prescription Opioid Use. Follow up: Haresh Pack; When: 2 - 3 days; Reason: Recheck today's complaints, Continuance of care, Re-evaluation by your physician. kaya
--- NOTE | 2019-04-25 17:35 | ER ---
Nurse's Notes [facility] Name: Estefani Leiva Age: 78 yrs Sex: Female : 1940 Arrival Date: 04/25/2019 Time: 11:19 Bed 15 Private MD: Diagnosis: Fecal impaction;Colitis Presentation: 04/25 11:21 Presenting complaint: Patient states: lower abd pain x 1 day, hyperglycemia. Denies sv n/v. Transition of care: patient was not received from another setting of care. Onset of symptoms was April 25, 2019. Initial Sepsis Screen:. Care prior to arrival: None. 11:21 Method Of Arrival: Wheelchair sv 11:25 Acuity: LEORA 3 sv 11:30 Risk Assessment: Do you want to hurt yourself or someone else? Patient reports no bp desire to harm self or others. Initial Sepsis Screen: Does the patient meet any 2 criteria? No. Patient's initial sepsis screen is negative. Does the patient have a suspected source of infection? No. Patient's initial sepsis screen is negative. Triage Assessment: 11:30 General: Appears in no apparent distress. comfortable, Behavior is cooperative, bp appropriate for age, anxious. Pain: Complains of pain in abdomen. EENT: No deficits noted. Neuro: No deficits noted. Cardiovascular: No deficits noted. Respiratory: No deficits noted. GI: Abdomen is non-distended, Bowel sounds present X 4 quads. : No deficits noted. Derm: No deficits noted. Musculoskeletal: Circulation, motion, and sensation intact. Range of motion: intact in all extremities. Historical: - Allergies: 11:22 NKA; sv - PMHx: 11:22 chronic diarrhea; CVA; Diabetes - NIDDM; Hyperlipidemia; Hypertension; sv - PSHx: 11:22 Hysterectomy; sv - Immunization history:: Adult Immunizations up to date. - Social history:: Smoking status: Patient/guardian denies using tobacco. - Ebola Screening: : No symptoms or risks identified at this time. Screenin:30 Abuse screen: Denies threats or abuse. Denies injuries from another. Nutritional bp screening: No deficits noted. Tuberculosis screening: No symptoms or risk factors identified. Fall Risk None identified. Assessment: 11:30 General: SEE TRIAGE NOTE. bp 13:34 Reassessment: ALL CURRENT ORDERS COMPLETED, VS STABLE ON MONITOR. bp 15:24 Reassessment: PT DRINKING MAG CITRATE, VS STABLE ON MONITOR. bp 16:48 Reassessment: PT SUCCESSFULLY USED BED DASILVA FOR BOWEL MOVEMENT. bp 18:14 Reassessment: PT D/C HOME VIA W/C WITH FAMILY, DX WITH FECAL IMPACTION AND COLITIS. bp AWAITING FAMILY FOR TRANSPORT. 18:26 Reassessment: PT JOSE WITH FAMILY. bp Vital Signs: 11:22 BP 146 / 78; Pulse 99; Resp 24; Temp 97.6; Pulse Ox 98% ; Weight 71.21 kg; Height 5 ft. sv 10 in. (177.80 cm); Pain 7/10; 13:30 BP 161 / 69; Pulse 87; Resp 16; Pulse Ox 98% ; bp 15:24 BP 173 / 71; Pulse 85; Resp 16; Pulse Ox 98% ; bp 16:30 BP 112 / 66; Pulse 48; Resp 14; Pulse Ox 97% ; bp 18:14 BP 167 / 96; Pulse 90; Resp 14; Temp 98; Pulse Ox 97% ; bp 11:22 Body Mass Index 22.53 (71.21 kg, 177.80 cm) sv ED Course: 11:19 Patient arrived in ED. mr 11:25 Triage completed. sv 11:30 Arm band placed on. bp 11:30 Patient has correct armband on for positive identification. Bed in low position. Call bp light in reach. Side rails up X2. Adult w/ patient. 12:17 Cliff Campuzano MD is Attending Physician. kdr 12:23 Christina Gómez, RN is Primary Nurse. aj 12:48 James Yadav PA is PHCP. jmm 12:52 Radiology exam delayed due to lab results not completed at this time. (BUN/Creatinine). vm2 13:17 Inserted saline lock: 22 gauge in left wrist, using aseptic technique. em1 13:25 Radiology exam delayed due to lab results not completed at this time. (BUN/Creatinine). vm2 14:31 CT Abd/Pelvis - W/Contrast In Process Unspecified. 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 bp 17:34 Haresh Pack MD is Referral Physician. jmm 18:15 IV discontinued, intact, bleeding controlled, No redness/swelling at site. Pressure bp dressing applied. Administered Medications: 13:30 Drug: morphine 2 mg Route: IVP; Site: left forearm; bp 14:54 Follow up: Response: No adverse reaction bp 13:30 Drug: Zofran 4 mg Route: IVP; Site: left forearm; bp 14:54 Follow up: Response: No adverse reaction bp 15:00 Drug: Magnesium Citrate Liquid 300 ml Route: PO; bp 15:16 Follow up: Response: No adverse reaction bp Point of Care Testing: Blood Glucose: 11:22 Blood Glucose: 161 mg/dL; sv Ranges: Outcome: 17:35 Discharge ordered by MD. kirkpatrick 18:15 Discharged to home bp 18:15 Condition: stable 18:15 Discharge instructions given to patient, Instructed on discharge instructions, follow up and referral plans. medication usage, Demonstrated understanding of instructions, follow-up care, medications, Prescriptions given X 2. 18:27 Patient left the ED. bp Signatures: Dispatcher [employer] EDMS Evy Hancock RN RN sv Myers, Amanda, RN RN aj Rittger, Kevin, MD MD kdr Mickail, Joel, PA PA jmm Rivera, Mary mr Martinez, Eric 1 Jessa Bernal 2 Heber Smith RN RN bp
[2019-04-25 19:06] VITALS: O2SAT 97
[2019-04-25 19:07] VITALS: BP 167/96; TEMP 98
== END 2019-04-25 18:27 | disposition home or self-care (01) ==
LOC: ER 11:16
DX: K56.41 Fecal impaction (principal); K52.9 Noninfective gastroenteritis and colitis, unspecified; I10 Essential (primary) hypertension; E11.9 Type 2 diabetes mellitus without complications; Z86.73 Personal history of transient ischemic attack (TIA), and cerebral infarction without residual deficits
CPT/HCPCS: 85025; 80048; 36415; 82962; 80076; 83690; 74177; 96375; 96374; 99284; Q9967

== ENCOUNTER 2020-01-20 11:41 | Emergency (ER) | payer OTHER ==
--- OUTSIDE RECORDS SUMMARY | 2020-01-20 11:50 | XMS REPORT ---
:1940 [facility] Address [address] [place] [address] Care Team Providers Name Role Phone CHIO [...] (BEAKER) (test 153 mg/dL 70-110 TESTED AT [address] rnqh=4198) [facility] [address] POCT-GLUCOSE [id number] 09:00:00 Test Item Value Reference Range Comments POC-GLUCOSE METER (BEAKER) 193 mg/dL 70-110 TESTED AT [address] (test hhts=9118) [facility] [address] [id number] 06:55:00 Test Item Value Reference Range Comments MAGNESIUM (BEAKER) (test owxa=859) 1.5 mg/dL 1.6-2.6 BASIC METABOLIC [id number] 06:55:00 Test Item Value Reference Range Comments SODIUM (BEAKER) (test 141 meq/L 136-145 apvd=945) POTASSIUM (BEAKER) (test 4.9 meq/L 3.5-5.1 jsvk=513) CHLORIDE (BEAKER) (test 105 meq/L 98-107 vdcc=739) CO2 (BEAKER) (test 28 meq/L 22-29 ntgu=788) BLOOD UREA NITROGEN 11 mg/dL 7-21 (BEAKER) (test ojvc=061) CREATININE (BEAKER) (test 0.88 mg/dL 0.57-1.25 qqwp=265) GLUCOSE RANDOM (BEAKER) 132 mg/dL 70-105 (test giye=048) CALCIUM (BEAKER) (test 9.9 mg/dL 8.4-10.2 deyx=851) EGFR (BEAKER) (test 75 mL/min/1.73 sq m ESTIMATED GFR IS NOT difn=2415) ACCURATE CREATININE CLEARANCE IN PREDICTING GLOMERULAR FILTRATION RATE. ESTIMATED GFR IS NOT APPLICABLE FOR DIALYSIS PATIENTS. CBC W/PLT COUNT & AUTO [id number] 06:25:00 Test Item Value Reference Range Comments WHITE BLOOD CELL COUNT (BEAKER) (test gnwo=173) 7.1 K/ L 3.5-10.5 RED BLOOD CELL COUNT (BEAKER) (test pgap=885) 2.97 M/ L 3.93-5.22 HEMOGLOBIN (BEAKER) (test oope=811) 9.2 GM/DL 11.2-15.7 HEMATOCRIT (BEAKER) (test inem=187) 30.1 % 34.1-44.9 MEAN CORPUSCULAR VOLUME (BEAKER) (test zizt=887) 101.3 fL 79.4-94.8 MEAN CORPUSCULAR HEMOGLOBIN (BEAKER) (test 31.0 pg 25.6-32.2 wjrn=026) MEAN CORPUSCULAR HEMOGLOBIN CONC (BEAKER) (test 30.6 GM/DL 32.2-35.5 gofo=322) RED CELL DISTRIBUTION WIDTH (BEAKER) (test 17.2 % 11.7-14.4 wjmy=044) PLATELET COUNT (BEAKER) (test iawa=326) 292 K/CU MM 150-450 MEAN PLATELET VOLUME (BEAKER) (test kmdk=122) 11.5 fL 9.4-12.3 NUCLEATED RED BLOOD CELLS (BEAKER) (test 0 /100 WBC 0-0 nyaf=485) NEUTROPHILS RELATIVE PERCENT (BEAKER) (test 71 % mvsz=420) LYMPHOCYTES RELATIVE PERCENT (BEAKER) (test 19 % abfq=681) MONOCYTES RELATIVE PERCENT (BEAKER) (test 7 % fkjg=403) EOSINOPHILS RELATIVE PERCENT (BEAKER) (test 2 % hazg=202) BASOPHILS RELATIVE PERCENT (BEAKER) (test 1 % hzwa=538) NEUTROPHILS ABSOLUTE COUNT (BEAKER) (test 5.01 K/ L 1.56-6.13 yyjn=769) LYMPHOCYTES ABSOLUTE COUNT (BEAKER) (test 1.35 K/ L 1.18-3.74 tdsk=556) MONOCYTES ABSOLUTE COUNT (BEAKER) (test 0.50 K/ L 0.24-0.36 tedv=634) EOSINOPHILS ABSOLUTE COUNT (BEAKER) (test 0.11 K/ L 0.04-0.36 prfk=885) BASOPHILS ABSOLUTE COUNT (BEAKER) (test 0.05 K/ L 0.01-0.08 hobs=747) IMMATURE GRANULOCYTES-RELATIVE PERCENT (BEAKER) 1 % 0-1 (test cfvm=7508) POCT-GLUCOSE [id number] 23:25:00 Test Item Value Reference Range Comments POC-GLUCOSE METER (BEAKER) 171 mg/dL 70-110 TESTED AT [address] (test ezvr=9470) [facility] [address] POCT-GLUCOSE [id number] 18:08:00 Test Item Value Reference Range Comments POC-GLUCOSE METER (BEAKER) 138 mg/dL 70-110 TESTED AT [address] (test cfxd=7590) [place] [id number] POCT-GLUCOSE [id number] 13:05:00 Test Item Value Reference Range Comments POC-GLUCOSE METER (BEAKER) 140 mg/dL 70-110 TESTED AT [address] (test wmlq=9964) [facility] [address] POCT-GLUCOSE [id number] 08:57:00 Test Item Value Reference Range Comments POC-GLUCOSE METER (BEAKER) 180 mg/dL 70-110 TESTED AT [address] (test mkuw=4996) [facility] [address] POCT-GLUCOSE [id number] 21:30:00 Test Item Value Reference Range Comments POC-GLUCOSE METER (BEAKER) 212 mg/dL 70-110 TESTED AT [address] (test vjzm=7555) [facility] [address] POCT-GLUCOSE [id number] 17:26:00 Test Item Value Reference Range Comments POC-GLUCOSE METER (BEAKER) 117 mg/dL 70-110 TESTED AT [address] (test ltnx=5622) [facility] [address] POCT-GLUCOSE [id number] 13:12:00 Test Item Value Reference Range Comments POC-GLUCOSE METER (BEAKER) 166 mg/dL 70-110 TESTED AT [address] (test qves=3081) [facility] [address] URIC [id number] 13:02:00 Test Item Value Reference Range Comments URIC ACID (BEAKER) (test useu=274) 5.9 mg/dL 2.6-7.2 POCT-GLUCOSE [id number] 09:40:00 Test Item Value Reference Range Comments POC-GLUCOSE METER (BEAKER) 175 mg/dL 70-110 TESTED AT [place] [id number] [facility] (test vybj=5944) [place] [id number] POCT-GLUCOSE [id number] 08:10:00 Test Item Value Reference Range Comments POC-GLUCOSE METER (BEAKER) 175 mg/dL 70-110 TESTED AT [address] (test uyqe=9704) [place] [address] [id number] 05:15:00 Test Item Value Reference Range Comments MAGNESIUM (BEAKER) (test livp=270) 1.8 mg/dL 1.6-2.6 BASIC METABOLIC [id number] 05:15:00 Test Item Value Reference Range Comments SODIUM (BEAKER) (test 140 meq/L 136-145 czwj=463) POTASSIUM (BEAKER) (test 4.2 meq/L 3.5-5.1 zyjz=490) CHLORIDE (BEAKER) (test 105 meq/L 98-107 fnad=452) CO2 (BEAKER) (test 29 meq/L 22-29 kwpb=201) BLOOD UREA NITROGEN 11 mg/dL 7-21 (BEAKER) (test btxz=073) CREATININE (BEAKER) (test 0.77 mg/dL 0.57-1.25 uisq=910) GLUCOSE RANDOM (BEAKER) 110 mg/dL 70-105 (test wukv=863) CALCIUM (BEAKER) (test 9.5 mg/dL 8.4-10.2 pfvh=034) EGFR (BEAKER) (test 88 mL/min/1.73 sq m ESTIMATED GFR IS NOT ypoi=6419) ACCURATE CREATININE CLEARANCE IN PREDICTING GLOMERULAR FILTRATION RATE. ESTIMATED GFR IS NOT APPLICABLE FOR DIALYSIS PATIENTS. CBC W/PLT COUNT & AUTO [id number] 04:56:00 Test Item Value Reference Range Comments WHITE BLOOD CELL COUNT (BEAKER) (test fiik=564) 6.3 K/ L 3.5-10.5 RED BLOOD CELL COUNT (BEAKER) (test oypx=595) 2.85 M/ L 3.93-5.22 HEMOGLOBIN (BEAKER) (test iwod=262) 8.8 GM/DL 11.2-15.7 HEMATOCRIT (BEAKER) (test ljla=540) 28.6 % 34.1-44.9 MEAN CORPUSCULAR VOLUME (BEAKER) (test jpww=238) 100.4 fL 79.4-94.8 MEAN CORPUSCULAR HEMOGLOBIN (BEAKER) (test 30.9 pg 25.6-32.2 wggk=579) MEAN CORPUSCULAR HEMOGLOBIN CONC (BEAKER) (test 30.8 GM/DL 32.2-35.5 ptuv=340) RED CELL DISTRIBUTION WIDTH (BEAKER) (test 17.0 % 11.7-14.4 hyif=759) PLATELET COUNT (BEAKER) (test pdqh=546) 214 K/CU MM 150-450 MEAN PLATELET VOLUME (BEAKER) (test lais=417) 11.6 fL 9.4-12.3 NUCLEATED RED BLOOD CELLS (BEAKER) (test 0 /100 WBC 0-0 jnie=867) NEUTROPHILS RELATIVE PERCENT (BEAKER) (test 68 % nudq=322) LYMPHOCYTES RELATIVE PERCENT (BEAKER) (test 19 % ckkf=756) MONOCYTES RELATIVE PERCENT (BEAKER) (test 9 % seqd=695) EOSINOPHILS RELATIVE PERCENT (BEAKER) (test 2 % lwtv=169) BASOPHILS RELATIVE PERCENT (BEAKER) (test 1 % jlok=435) NEUTROPHILS ABSOLUTE COUNT (BEAKER) (test 4.27 K/ L 1.56-6.13 wsic=727) LYMPHOCYTES ABSOLUTE COUNT (BEAKER) (test 1.20 K/ L 1.18-3.74 utgj=913) MONOCYTES ABSOLUTE COUNT (BEAKER) (test 0.53 K/ L 0.24-0.36 zrsx=757) EOSINOPHILS ABSOLUTE COUNT (BEAKER) (test 0.15 K/ L 0.04-0.36 pmjm=193) BASOPHILS ABSOLUTE COUNT (BEAKER) (test 0.04 K/ L 0.01-0.08 lkgf=337) IMMATURE GRANULOCYTES-RELATIVE PERCENT (BEAKER) 1 % 0-1 (test pvvu=6800) POCT-GLUCOSE [id number] 21:26:00 Test Item Value Reference Range Comments POC-GLUCOSE METER (BEAKER) 162 mg/dL 70-110 TESTED AT [address] (test kmju=0674) [place] [address] POCT-GLUCOSE [id number] 19:38:00 Test Item Value Reference Range Comments POC-GLUCOSE METER (BEAKER) 194 mg/dL 70-110 TESTED AT [address] (test nefi=8055) [place] [address] POCT-GLUCOSE [id number] 13:05:00 Test Item Value Reference Range Comments POC-GLUCOSE METER (BEAKER) 177 mg/dL 70-110 TESTED AT [address] (test drtr=8324) [place] [address] POCT-GLUCOSE [id number] 08:48:00 Test Item Value Reference Range Comments POC-GLUCOSE METER (BEAKER) 140 mg/dL 70-110 TESTED AT [address] (test zxuq=7269) [place] [address] POCT-GLUCOSE [id number] 21:57:00 Test Item Value Reference Range Comments POC-GLUCOSE METER (BEAKER) 160 mg/dL 70-110 TESTED AT [address] (test eggm=4521) [place] [address] POCT-GLUCOSE [id number] 17:35:00 Test Item Value Reference Range Comments POC-GLUCOSE METER (BEAKER) 107 mg/dL 70-110 TESTED AT [address] (test dvuh=5585) [place] [address] POCT-GLUCOSE [id number] 13:02:00 Test Item Value Reference Range Comments POC-GLUCOSE METER (BEAKER) 167 mg/dL 70-110 TESTED AT [address] (test zncp=8641) [place] [address] POCT-GLUCOSE [id number] 08:39:00 Test Item Value Reference Range Comments POC-GLUCOSE METER (BEAKER) 172 mg/dL 70-110 TESTED AT [address] (test bzqw=8617) [place] [address] [id number] 06:10:00 Test Item Value Reference Range Comments MAGNESIUM (BEAKER) (test wjrn=679) 1.5 mg/dL 1.6-2.6 BASIC METABOLIC [id number] 06:10:00 Test Item Value Reference Range Comments SODIUM (BEAKER) (test 140 meq/L 136-145 elik=712) POTASSIUM (BEAKER) (test 3.9 meq/L 3.5-5.1 okai=876) CHLORIDE (BEAKER) (test 105 meq/L 98-107 yvpa=322) CO2 (BEAKER) (test 28 meq/L 22-29 popj=528) BLOOD UREA NITROGEN 12 mg/dL 7-21 (BEAKER) (test ukxl=329) CREATININE (BEAKER) (test 0.73 mg/dL 0.57-1.25 nezj=159) GLUCOSE RANDOM (BEAKER) 102 mg/dL 70-105 (test htwa=395) CALCIUM (BEAKER) (test 9.0 mg/dL 8.4-10.2 ewen=444) EGFR (BEAKER) (test 93 mL/min/1.73 sq m ESTIMATED GFR IS NOT mwlb=1742) ACCURATE CREATININE CLEARANCE IN PREDICTING GLOMERULAR FILTRATION RATE. ESTIMATED GFR IS NOT APPLICABLE FOR DIALYSIS PATIENTS. CBC W/PLT COUNT & AUTO [id number] 05:12:00 Test Item Value Reference Range Comments WHITE BLOOD CELL COUNT (BEAKER) (test bwsv=850) 8.0 K/ L 3.5-10.5 RED BLOOD CELL COUNT (BEAKER) (test mznd=520) 2.70 M/ L 3.93-5.22 HEMOGLOBIN (BEAKER) (test jwrt=132) 8.5 GM/DL 11.2-15.7 HEMATOCRIT (BEAKER) (test qosi=113) 27.2 % 34.1-44.9 MEAN CORPUSCULAR VOLUME (BEAKER) (test xwro=619) 100.7 fL 79.4-94.8 MEAN CORPUSCULAR HEMOGLOBIN (BEAKER) (test 31.5 pg 25.6-32.2 wwev=712) MEAN CORPUSCULAR HEMOGLOBIN CONC (BEAKER) (test 31.3 GM/DL 32.2-35.5 mftr=913) RED CELL DISTRIBUTION WIDTH (BEAKER) (test 16.9 % 11.7-14.4 uuta=085) PLATELET COUNT (BEAKER) (test klpy=643) 146 K/CU MM 150-450 MEAN PLATELET VOLUME (BEAKER) (test uihx=610) 12.2 fL 9.4-12.3 NUCLEATED RED BLOOD CELLS (BEAKER) (test 0 /100 WBC 0-0 azer=703) NEUTROPHILS RELATIVE PERCENT (BEAKER) (test 75 % jmaa=759) LYMPHOCYTES RELATIVE PERCENT (BEAKER) (test 15 % vzvw=239) MONOCYTES RELATIVE PERCENT (BEAKER) (test 7 % gvtt=942) EOSINOPHILS RELATIVE PERCENT (BEAKER) (test 2 % osxr=427) BASOPHILS RELATIVE PERCENT (BEAKER) (test 0 % rwme=170) NEUTROPHILS ABSOLUTE COUNT (BEAKER) (test 6.01 K/ L 1.56-6.13 kfdw=054) LYMPHOCYTES ABSOLUTE COUNT (BEAKER) (test 1.16 K/ L 1.18-3.74 zumb=485) MONOCYTES ABSOLUTE COUNT (BEAKER) (test 0.59 K/ L 0.24-0.36 limg=016) EOSINOPHILS ABSOLUTE COUNT (BEAKER) (test 0.12 K/ L 0.04-0.36 mlrm=179) BASOPHILS ABSOLUTE COUNT (BEAKER) (test 0.03 K/ L 0.01-0.08 ratu=459) IMMATURE GRANULOCYTES-RELATIVE PERCENT (BEAKER) 1 % 0-1 (test rkkh=6660) POCT-GLUCOSE [id number] 22:03:00 Test Item Value Reference Range Comments POC-GLUCOSE METER (BEAKER) 208 mg/dL 70-110 TESTED AT [address] (test sxzb=4812) [place] [address] POCT-GLUCOSE [id number] 18:20:00 Test Item Value Reference Range Comments POC-GLUCOSE METER (BEAKER) 146 mg/dL 70-110 TESTED AT [address] (test jfzb=1577) [place] [address] POCT-GLUCOSE [id number] 12:53:00 Test Item Value Reference Range Comments POC-GLUCOSE METER (BEAKER) 168 mg/dL 70-110 TESTED AT [address] (test gpcb=2740) [place] [address] POCT-GLUCOSE [id number] 09:31:00 Test Item Value Reference Range Comments POC-GLUCOSE METER (BEAKER) 192 mg/dL 70-110 TESTED AT [address] (test sopf=2032) [place] [address] [id number] 07:27:00 Test Item Value Reference Range Comments MAGNESIUM (BEAKER) (test vlqx=642) 1.6 mg/dL 1.6-2.6 BASIC METABOLIC [id number] 07:27:00 Test Item Value Reference Range Comments SODIUM (BEAKER) (test 140 meq/L 136-145 ibsq=190) POTASSIUM (BEAKER) (test 4.4 meq/L 3.5-5.1 wywf=957) CHLORIDE (BEAKER) (test 106 meq/L 98-107 mgea=370) CO2 (BEAKER) (test 26 meq/L 22-29 lcof=371) BLOOD UREA NITROGEN 15 mg/dL 7-21 (BEAKER) (test kjho=678) CREATININE (BEAKER) (test 0.78 mg/dL 0.57-1.25 ezpz=970) GLUCOSE RANDOM (BEAKER) 128 mg/dL 70-105 (test bfdz=068) CALCIUM (BEAKER) (test 9.3 mg/dL 8.4-10.2 rnul=090) EGFR (BEAKER) (test 86 mL/min/1.73 sq m ESTIMATED GFR IS NOT wikc=2679) ACCURATE CREATININE CLEARANCE IN PREDICTING GLOMERULAR FILTRATION RATE. ESTIMATED GFR IS NOT APPLICABLE FOR DIALYSIS PATIENTS. CBC W/PLT COUNT & AUTO [id number] 06:06:00 Test Item Value Reference Range Comments WHITE BLOOD CELL COUNT (BEAKER) (test lhhw=328) 8.0 K/ L 3.5-10.5 RED BLOOD CELL COUNT (BEAKER) (test jgak=335) 2.86 M/ L 3.93-5.22 HEMOGLOBIN (BEAKER) (test raqt=215) 8.9 GM/DL 11.2-15.7 HEMATOCRIT (BEAKER) (test dleq=611) 28.9 % 34.1-44.9 MEAN CORPUSCULAR VOLUME (BEAKER) (test xrkn=125) 101.0 fL 79.4-94.8 MEAN CORPUSCULAR HEMOGLOBIN (BEAKER) (test 31.1 pg 25.6-32.2 bofl=206) MEAN CORPUSCULAR HEMOGLOBIN CONC (BEAKER) (test 30.8 GM/DL 32.2-35.5 kwll=143) RED CELL DISTRIBUTION WIDTH (BEAKER) (test 16.8 % 11.7-14.4 hiic=964) PLATELET COUNT (BEAKER) (test tcad=276) 142 K/CU MM 150-450 MEAN PLATELET VOLUME (BEAKER) (test fgzf=121) 12.5 fL 9.4-12.3 NUCLEATED RED BLOOD CELLS (BEAKER) (test 0 /100 WBC 0-0 wfkq=407) NEUTROPHILS RELATIVE PERCENT (BEAKER) (test 74 % meiw=051) LYMPHOCYTES RELATIVE PERCENT (BEAKER) (test 16 % mbxx=205) MONOCYTES RELATIVE PERCENT (BEAKER) (test 7 % xjrd=215) EOSINOPHILS RELATIVE PERCENT (BEAKER) (test 2 % orkk=491) BASOPHILS RELATIVE PERCENT (BEAKER) (test 0 % fwtt=217) NEUTROPHILS ABSOLUTE COUNT (BEAKER) (test 5.96 K/ L 1.56-6.13 gwfp=978) LYMPHOCYTES ABSOLUTE COUNT (BEAKER) (test 1.24 K/ L 1.18-3.74 uzhf=569) MONOCYTES ABSOLUTE COUNT (BEAKER) (test 0.58 K/ L 0.24-0.36 pyri=516) EOSINOPHILS ABSOLUTE COUNT (BEAKER) (test 0.13 K/ L 0.04-0.36 gnvc=381) BASOPHILS ABSOLUTE COUNT (BEAKER) (test 0.03 K/ L 0.01-0.08 ktwb=752) IMMATURE GRANULOCYTES-RELATIVE PERCENT (BEAKER) 1 % 0-1 (test jynu=7762) POCT-GLUCOSE [id number] 22:49:00 Test Item Value Reference Range Comments POC-GLUCOSE METER (BEAKER) 214 mg/dL 70-110 TESTED AT [address] (test feuz=9321) [place] [address] POCT-GLUCOSE [id number] 22:48:00 Test Item Value Reference Range Comments POC-GLUCOSE METER (BEAKER) 247 mg/dL 70-110 TESTED AT [address] (test mfny=5438) [place] [id number] POCT-GLUCOSE [id number] 17:37:00 Test Item Value Reference Range Comments POC-GLUCOSE METER (BEAKER) 185 mg/dL 70-110 TESTED AT [address] (test uqnj=4490) [place] [address] [id number] 15:08:00 Test Item Value Reference Range Comments MAGNESIUM (BEAKER) (test zqus=195) 1.7 mg/dL 1.6-2.6 BASIC METABOLIC [id number] 15:08:00 Test Item Value Reference Range Comments SODIUM (BEAKER) (test 141 meq/L 136-145 pdhl=072) POTASSIUM (BEAKER) (test 4.1 meq/L 3.5-5.1 oivt=033) CHLORIDE (BEAKER) (test 108 meq/L 98-107 rdbb=329) CO2 (BEAKER) (test 23 meq/L 22-29 dqbt=722) BLOOD UREA NITROGEN 17 mg/dL 7-21 (BEAKER) (test pliq=076) CREATININE (BEAKER) (test 0.87 mg/dL 0.57-1.25 rcei=390) GLUCOSE RANDOM (BEAKER) 143 mg/dL 70-105 (test pboj=725) CALCIUM (BEAKER) (test 9.5 mg/dL 8.4-10.2 lvxv=812) EGFR (BEAKER) (test 76 mL/min/1.73 sq m ESTIMATED GFR IS NOT cgiq=8703) ACCURATE CREATININE CLEARANCE IN PREDICTING GLOMERULAR FILTRATION RATE. ESTIMATED GFR IS NOT APPLICABLE FOR DIALYSIS PATIENTS. CBC (HEMOGRAM ONLY)2018-12-21 15:00:00 Test Item Value Reference Range Comments WHITE BLOOD CELL COUNT (BEAKER) (test ycsp=987) 9.0 K/ L 3.5-10.5 RED BLOOD CELL COUNT (BEAKER) (test pari=352) 3.01 M/ L 3.93-5.22 HEMOGLOBIN (BEAKER) (test iqig=233) 9.5 GM/DL 11.2-15.7 HEMATOCRIT (BEAKER) (test eusp=868) 30.6 % 34.1-44.9 MEAN CORPUSCULAR VOLUME (BEAKER) (test gaho=291) 101.7 fL 79.4-94.8 MEAN CORPUSCULAR HEMOGLOBIN (BEAKER) (test 31.6 pg 25.6-32.2 penl=785) MEAN CORPUSCULAR HEMOGLOBIN CONC (BEAKER) (test 31.0 GM/DL 32.2-35.5 rrft=328) RED CELL DISTRIBUTION WIDTH (BEAKER) (test 17.0 % 11.7-14.4 djcx=107) PLATELET COUNT (BEAKER) (test rxhr=369) 131 K/CU MM 150-450 MEAN PLATELET VOLUME (BEAKER) (test tyyd=069) 12.6 fL 9.4-12.3 NUCLEATED RED BLOOD CELLS (BEAKER) (test WBC 0-0 fait=865) POCT-GLUCOSE [id number] 12:49:00 Test Item Value Reference Range Comments POC-GLUCOSE METER (BEAKER) 182 mg/dL 70-110 TESTED AT [address] (test lfmi=2657) [place] [id number] POCT-GLUCOSE [id number] 08:49:00 Test Item Value Reference Range Comments POC-GLUCOSE METER (BEAKER) 111 mg/dL 70-110 TESTED AT [address] (test eqqh=6467) [facility] [address] POCT-GLUCOSE [id number] 22:38:00 Test Item Value Reference Range Comments POC-GLUCOSE METER (BEAKER) 225 mg/dL 70-110 TESTED AT [address] (test ezll=7670) [place] [id number] POCT-GLUCOSE [id number] 17:12:00 Test Item Value Reference Range Comments POC-GLUCOSE METER (BEAKER) 194 mg/dL 70-110 TESTED AT [address] (test pqyn=9454) [facility] [address] POCT-GLUCOSE [id number] 14:19:00 Test Item Value Reference Range Comments POC-GLUCOSE METER (BEAKER) 179 mg/dL 70-110 TESTED AT [address] (test xymv=9527) [facility] [address] RAD, CHEST, 1 VIEW, NON [id number] 12:01:00Reason for exam:->short of breathShould this be [...] [place] Verified Date/Time: 12/20/2018 12:01:09 Reading Location: [facility] Radiology Reading Room POCT-GLUCOSE [id number] 10:07:00 Test Item Value Reference Range Comments POC-GLUCOSE METER (BEAKER) 169 mg/dL 70-110 TESTED AT [facility] [address] (test tgmv=0781) [facility] [address] [id number] 08:40:00 Test Item Value Reference Range Comments MAGNESIUM (BEAKER) (test flfm=076) 1.5 mg/dL 1.6-2.6 BASIC METABOLIC [id number] 08:40:00 Test Item Value Reference Range Comments SODIUM (BEAKER) (test 141 meq/L 136-145 fjiy=982) POTASSIUM (BEAKER) (test 4.1 meq/L 3.5-5.1 jbsg=035) CHLORIDE (BEAKER) (test 106 meq/L 98-107 nuiv=031) CO2 (BEAKER) (test 28 meq/L 22-29 fykl=897) BLOOD UREA NITROGEN 13 mg/dL 7-21 (BEAKER) (test bnuh=034) CREATININE (BEAKER) (test 0.84 mg/dL 0.57-1.25 ssab=114) GLUCOSE RANDOM (BEAKER) 142 mg/dL 70-105 (test iiyv=059) CALCIUM (BEAKER) (test 9.6 mg/dL 8.4-10.2 heei=175) EGFR (BEAKER) (test 79 mL/min/1.73 sq m ESTIMATED GFR IS NOT wizu=1923) ACCURATE CREATININE CLEARANCE IN PREDICTING GLOMERULAR FILTRATION RATE. ESTIMATED GFR IS NOT APPLICABLE FOR DIALYSIS PATIENTS. CBC (HEMOGRAM ONLY)2018-12-20 08:24:00 Test Item Value Reference Range Comments WHITE BLOOD CELL COUNT (BEAKER) (test zzcv=540) 9.7 K/ L 3.5-10.5 RED BLOOD CELL COUNT (BEAKER) (test prue=052) 3.10 M/ L 3.93-5.22 HEMOGLOBIN (BEAKER) (test byhi=887) 9.8 GM/DL 11.2-15.7 HEMATOCRIT (BEAKER) (test yuro=199) 30.8 % 34.1-44.9 MEAN CORPUSCULAR VOLUME (BEAKER) (test zcpb=101) 99.4 fL 79.4-94.8 MEAN CORPUSCULAR HEMOGLOBIN (BEAKER) (test 31.6 pg 25.6-32.2 xgjf=813) MEAN CORPUSCULAR HEMOGLOBIN CONC (BEAKER) (test 31.8 GM/DL 32.2-35.5 zzbe=248) RED CELL DISTRIBUTION WIDTH (BEAKER) (test 17.1 % 11.7-14.4 gjds=991) PLATELET COUNT (BEAKER) (test osnq=554) 110 K/CU MM 150-450 MEAN PLATELET VOLUME (BEAKER) (test ultc=379) 13.1 fL 9.4-12.3 NUCLEATED RED BLOOD CELLS (BEAKER) (test 0 /100 WBC 0-0 vbkn=182) POCT-GLUCOSE [id number] 22:11:00 Test Item Value Reference Range Comments POC-GLUCOSE METER (BEAKER) 207 mg/dL 70-110 TESTED AT [address] (test zokb=6202) [place] [id number] POCT-GLUCOSE [id number] 17:51:00 Test Item Value Reference Range Comments POC-GLUCOSE METER (BEAKER) 197 mg/dL 70-110 TESTED AT [address] (test bywh=7648) [place] [id number] POCT-GLUCOSE [id number] 12:26:00 Test Item Value Reference Range Comments POC-GLUCOSE METER (BEAKER) 238 mg/dL 70-110 TESTED AT [address] (test ykjz=7769) [place] [id number] POCT-GLUCOSE [id number] 12:00:00 Test Item Value Reference Range Comments POC-GLUCOSE METER (BEAKER) 207 mg/dL 70-110 TESTED AT [address] (test ommi=2071) [place] [id number] 07:04:00 Test Item Value Reference Range Comments PHOSPHORUS (BEAKER) (test axql=097) 2.9 mg/dL 2.3-4.7 [id number] 07:04:00 Test Item Value Reference Range Comments MAGNESIUM (BEAKER) (test ufpz=770) 1.8 mg/dL 1.6-2.6 BASIC METABOLIC [id number] 07:04:00 Test Item Value Reference Range Comments SODIUM (BEAKER) (test 143 meq/L 136-145 dfuc=000) POTASSIUM (BEAKER) (test 4.3 meq/L 3.5-5.1 cpko=850) CHLORIDE (BEAKER) (test 109 meq/L 98-107 urgt=556) CO2 (BEAKER) (test 23 meq/L 22-29 xtdx=573) BLOOD UREA NITROGEN 13 mg/dL 7-21 (BEAKER) (test mvhk=469) CREATININE (BEAKER) (test 0.88 mg/dL 0.57-1.25 ulzn=572) GLUCOSE RANDOM (BEAKER) 168 mg/dL 70-105 (test yljt=484) CALCIUM (BEAKER) (test 10.1 mg/dL 8.4-10.2 gbfh=785) EGFR (BEAKER) (test 75 mL/min/1.73 sq m ESTIMATED GFR IS NOT zwuz=2299) ACCURATE CREATININE CLEARANCE IN PREDICTING GLOMERULAR FILTRATION RATE. ESTIMATED GFR IS NOT APPLICABLE FOR DIALYSIS PATIENTS. CBC (HEMOGRAM ONLY)2018-12-19 06:44:00 Test Item Value Reference Range Comments WHITE BLOOD CELL COUNT (BEAKER) (test ybfz=653) 13.1 K/ L 3.5-10.5 RED BLOOD CELL COUNT (BEAKER) (test yuur=741) 3.42 M/ L 3.93-5.22 HEMOGLOBIN (BEAKER) (test zdhd=053) 10.7 GM/DL 11.2-15.7 HEMATOCRIT (BEAKER) (test mmkd=297) 33.7 % 34.1-44.9 MEAN CORPUSCULAR VOLUME (BEAKER) (test lvpp=036) 98.5 fL 79.4-94.8 MEAN CORPUSCULAR HEMOGLOBIN (BEAKER) (test 31.3 pg 25.6-32.2 xxoc=506) MEAN CORPUSCULAR HEMOGLOBIN CONC (BEAKER) (test 31.8 GM/DL 32.2-35.5 srdu=491) RED CELL DISTRIBUTION WIDTH (BEAKER) (test 17.4 % 11.7-14.4 ufou=278) PLATELET COUNT (BEAKER) (test ezid=585) 107 K/CU MM 150-450 MEAN PLATELET VOLUME (BEAKER) (test wzfy=618) 12.3 fL 9.4-12.3 NUCLEATED RED BLOOD CELLS (BEAKER) (test 0 /100 WBC 0-0 kyum=425) POCT-GLUCOSE [id number] 21:38:00 Test Item Value Reference Range Comments POC-GLUCOSE METER (BEAKER) 204 mg/dL 70-110 TESTED AT [address] (test jgkk=6991) [facility] [id number] POCT-GLUCOSE [id number] 12:18:00 Test Item Value Reference Range Comments POC-GLUCOSE METER (BEAKER) 158 mg/dL 70-110 TESTED AT [address] (test nqrd=2853) [place] [id number] POCT-GLUCOSE [id number] 09:50:00 Test Item Value Reference Range Comments POC-GLUCOSE METER (BEAKER) 153 mg/dL 70-110 TESTED AT [address] (test jhrv=4425) [place] [id number] POCT-GLUCOSE [id number] 09:50:00 Test Item Value Reference Range Comments POC-GLUCOSE METER (BEAKER) 132 mg/dL 70-110 TESTED AT [address] (test nadd=4580) [place] [id number] POCT-GLUCOSE [id number] 07:48:00 Test Item Value Reference Range Comments POC-GLUCOSE METER (BEAKER) 98 mg/dL 70-110 TESTED AT [address] (test fsdd=7238) [place] [id number] POCT-GLUCOSE [id number] 07:48:00 Test Item Value Reference Range Comments POC-GLUCOSE METER (BEAKER) 101 mg/dL 70-110 TESTED AT [address] (test noxc=2807) [place] [address] [id number] 05:44:00 Test Item Value Reference Range Comments PHOSPHORUS (BEAKER) (test jtok=471) 3.7 mg/dL 2.3-4.7 [id number] 05:44:00 Test Item Value Reference Range Comments MAGNESIUM (BEAKER) (test twru=351) 2.4 mg/dL 1.6-2.6 BASIC METABOLIC [id number] 05:44:00 Test Item Value Reference Range Comments SODIUM (BEAKER) (test 144 meq/L 136-145 doxx=880) POTASSIUM (BEAKER) (test 4.3 meq/L 3.5-5.1 dhln=291) CHLORIDE (BEAKER) (test 115 meq/L 98-107 oafz=130) CO2 (BEAKER) (test 21 meq/L 22-29 plzp=958) BLOOD UREA NITROGEN 16 mg/dL 7-21 (BEAKER) (test ajqv=310) CREATININE (BEAKER) (test 0.99 mg/dL 0.57-1.25 wqzl=541) GLUCOSE RANDOM (BEAKER) 107 mg/dL 70-105 (test aaap=997) CALCIUM (BEAKER) (test 9.0 mg/dL 8.4-10.2 cxlt=731) EGFR (BEAKER) (test 66 mL/min/1.73 sq m ESTIMATED GFR IS NOT rfbj=1052) ACCURATE CREATININE CLEARANCE IN PREDICTING GLOMERULAR FILTRATION RATE. ESTIMATED GFR IS NOT APPLICABLE FOR DIALYSIS PATIENTS. [id number] 05:26:00 Test Item Value Reference Range Comments PARTIAL THROMBOPLASTIN TIME (BEAKER) (test 32.9 seconds 22.5-36.0 uova=107) CBC (HEMOGRAM ONLY)2018-12-18 05:20:00 Test Item Value Reference Range Comments WHITE BLOOD CELL COUNT (BEAKER) (test hler=739) 11.6 K/ L 3.5-10.5 RED BLOOD CELL COUNT (BEAKER) (test xbvw=699) 3.08 M/ L 3.93-5.22 HEMOGLOBIN (BEAKER) (test qmyt=463) 9.7 GM/DL 11.2-15.7 HEMATOCRIT (BEAKER) (test qrpb=755) 29.7 % 34.1-44.9 MEAN CORPUSCULAR VOLUME (BEAKER) (test vwzo=472) 96.4 fL 79.4-94.8 MEAN CORPUSCULAR HEMOGLOBIN (BEAKER) (test 31.5 pg 25.6-32.2 wdmi=503) MEAN CORPUSCULAR HEMOGLOBIN CONC (BEAKER) (test 32.7 GM/DL 32.2-35.5 wjfa=161) RED CELL DISTRIBUTION WIDTH (BEAKER) (test 17.8 % 11.7-14.4 wifk=457) PLATELET COUNT (BEAKER) (test qlse=312) 102 K/CU MM 150-450 MEAN PLATELET VOLUME (BEAKER) (test pgzz=882) 12.1 fL 9.4-12.3 NUCLEATED RED BLOOD CELLS (BEAKER) (test 0 /100 WBC 0-0 hfmw=128) BLOOD GAS, [id number] 05:10:00 Test Item Value Reference Range Comments PH ARTERIAL (BEAKER) (test xvth=473) 7.41 7.35-7.45 PCO2 ARTERIAL (BEAKER) (test ckql=926) 34 mmHg 35-45 PO2 ARTERIAL (BEAKER) (test gwbb=335) 242 mmHg 80-90 O2 SATURATION ARTERIAL (BEAKER) (test orcs=455) 99.6 % 96.0-97.0 HCO3 ARTERIAL (BEAKER) (test hlyq=190) 21 mmol/L 21-29 BASE EXCESS ARTERIAL (BEAKER) (test qxqe=874) -3.1 mmol/L -2.0-3.0 PATIENT TEMPERATURE (BEAKER) (test pksb=0943) 36.9 C FIO2 (BEAKER) (test fifb=8242) 60.0 % RAD, CHEST, 1 VIEW, NON [id number] 04:43:00while patient is intubated or has chest [...] Verified Date/Time: 12/18/2018 04: 43:02 Reading Location: [address] Reading Room BLOOD GAS, [id number] 02:48:00 Test Item Value Reference Range Comments PH ARTERIAL (BEAKER) (test ohdz=875) 7.39 7.35-7.45 PCO2 ARTERIAL (BEAKER) (test gomx=420) 36 mmHg 35-45 PO2 ARTERIAL (BEAKER) (test iqzt=657) 221 mmHg 80-90 O2 SATURATION ARTERIAL (BEAKER) (test zsew=617) 99.5 % 96.0-97.0 HCO3 ARTERIAL (BEAKER) (test epcs=861) 21 mmol/L 21-29 BASE EXCESS ARTERIAL (BEAKER) (test ogfl=471) -3.5 mmol/L -2.0-3.0 PATIENT TEMPERATURE (BEAKER) (test qfwz=8132) 36.7 C FIO2 (BEAKER) (test ffwu=1666) 40.0 % [id number] 23:12:00 Test Item Value Reference Range Comments MAGNESIUM (BEAKER) (test dadm=254) 2.4 mg/dL 1.6-2.6 Check Serum Magnesium level 2 hours after IV magnesium replacement.BLOOD GAS, [id number] 23:00:00 Test Item Value Reference Range Comments PH ARTERIAL (BEAKER) (test stib=384) 7.40 7.35-7.45 PCO2 ARTERIAL (BEAKER) (test zpvh=387) 35 mmHg 35-45 PO2 ARTERIAL (BEAKER) (test uvmw=713) 139 mmHg 80-90 O2 SATURATION ARTERIAL (BEAKER) (test gags=061) 98.8 % 96.0-97.0 HCO3 ARTERIAL (BEAKER) (test yyfl=521) 22 mmol/L 21-29 BASE EXCESS ARTERIAL (BEAKER) (test ykck=959) -2.8 mmol/L -2.0-3.0 PATIENT TEMPERATURE (BEAKER) (test qjki=4000) 36.9 C FIO2 (BEAKER) (test bgkx=9382) 40.0 % LACTIC ACID, ARTERIAL, WHOLE [id number] 20:01:00 Test Item Value Reference Range Comments LACTATE BLOOD ARTERIAL (2) (BEAKER) (test 1.5 mmol/L 0.5-2.2 gqpp=2015) [id number] 19:59:00 Test Item Value Reference Range Comments MAGNESIUM (BEAKER) (test mgcw=335) 1.7 mg/dL 1.6-2.6 SODIUM NA-STAT [id number] 19:40:00 Test Item Value Reference Range Comments SODIUM (BEAKER) (test bzfb=427) 139 meq/L 135-148 POTASSIUM-STAT [id number] 19:40:00 Test Item Value Reference Range Comments POTASSIUM (BEAKER) (test kfyd=964) 4.2 meq/L 3.6-5.5 OXYGEN SATURATION, [id number] 19:40:00 Test Item Value Reference Range Comments O2 SATURATION (MEASURED) (BEAKER) (test khey=4034) 61.6 % CALCIUM, [id number] 19:40:00 Test Item Value Reference Range Comments CALCIUM IONIZED (BEAKER) (test rjhx=806) 1.12 mmol/L 1.12-1.27 PH, BLOOD (BEAKER) (test eayu=7673) 7.48 BLOOD GAS, [id number] 19:40:00 Test Item Value Reference Range Comments PH ARTERIAL (BEAKER) (test nhdj=320) 7.48 7.35-7.45 PCO2 ARTERIAL (BEAKER) (test fqjn=976) 27 mmHg 35-45 PO2 ARTERIAL (BEAKER) (test apry=708) 158 mmHg 80-90 O2 SATURATION ARTERIAL (BEAKER) (test skqh=480) 99.2 % 96.0-97.0 HCO3 ARTERIAL (BEAKER) (test jlaf=614) 19 mmol/L 21-29 BASE EXCESS ARTERIAL (BEAKER) (test fywm=337) -2.9 mmol/L -2.0-3.0 PATIENT TEMPERATURE (BEAKER) (test pkcn=8673) 37.4 C FIO2 (BEAKER) (test vkzp=9484) 40.0 % GLUCOSE-STAT [id number] 19:40:00 Test Item Value Reference Range Comments GLUCOSE RANDOM (BEAKER) (test njuc=334) 136 mg/dL 70-110 HGB/HCT (H&H) - STAT [id number] 19:40:00 Test Item Value Reference Range Comments HEMOGLOBIN (BEAKER) (test tkqw=086) 10.8 g/dL 12.0-15.0 HEMATOCRIT (BEAKER) (test qaol=441) 32.0 % 36.0-45.0 POCT-GLUCOSE [id number] 18:42:00 Test Item Value Reference Range Comments POC-GLUCOSE METER (BEAKER) 138 mg/dL 70-110 TESTED AT [facility] [address] [facility] (test zmrj=9006) [facility] [address] POCT-GLUCOSE [id number] 17:37:00 Test Item Value Reference Range Comments POC-GLUCOSE METER (BEAKER) 147 mg/dL 70-110 TESTED AT [facility] [address] (test vkjo=1625) [facility] [address] CBC W/PLT COUNT & AUTO [id number] 16:05:00 Test Item Value Reference Range Comments WHITE BLOOD CELL COUNT 4.7 K/ L 3.5-10.5 (BEAKER) (test cogn=212) RED BLOOD CELL COUNT (BEAKER) 4.11 M/ L 3.93-5.22 (test himz=318) HEMOGLOBIN (BEAKER) (test 12.8 GM/DL 11.2-15.7 uqnz=756) HEMATOCRIT (BEAKER) (test 40.0 % 34.1-44.9 vupw=895) MEAN CORPUSCULAR VOLUME 97.3 fL 79.4-94.8 Discordant result compared (BEAKER) (test vlhd=694) to previous result; clinical correlation required. MEAN CORPUSCULAR HEMOGLOBIN 31.1 pg 25.6-32.2 (BEAKER) (test jljz=711) MEAN CORPUSCULAR HEMOGLOBIN 32.0 GM/DL 32.2-35.5 CONC (BEAKER) (test fvrl=720) RED CELL DISTRIBUTION WIDTH 17.1 % 11.7-14.4 (BEAKER) (test finv=019) PLATELET COUNT (BEAKER) (test 84 K/CU MM 150-450 Discordant result compared ecbx=657) to previous result; clinical correlation required. MEAN PLATELET VOLUME (BEAKER) 12.3 fL 9.4-12.3 (test omfx=578) NUCLEATED RED BLOOD CELLS 0 /100 WBC 0-0 (BEAKER) (test jprp=569) NEUTROPHILS RELATIVE PERCENT 87 % (BEAKER) (test jyhm=212) LYMPHOCYTES RELATIVE PERCENT 9 % (BEAKER) (test zomj=493) MONOCYTES RELATIVE PERCENT 2 % (BEAKER) (test nwuv=583) EOSINOPHILS RELATIVE PERCENT 0 % (BEAKER) (test wxgx=781) BASOPHILS RELATIVE PERCENT 0 % (BEAKER) (test gduy=493) NEUTROPHILS ABSOLUTE COUNT 4.07 K/ L 1.56-6.13 (BEAKER) (test skhv=199) LYMPHOCYTES ABSOLUTE COUNT 0.41 K/ L 1.18-3.74 (BEAKER) (test axms=762) MONOCYTES ABSOLUTE COUNT 0.08 K/ L 0.24-0.36 (BEAKER) (test wkkk=372) EOSINOPHILS ABSOLUTE COUNT 0.02 K/ L 0.04-0.36 (BEAKER) (test dzao=952) BASOPHILS ABSOLUTE COUNT 0.01 K/ L 0.01-0.08 (BEAKER) (test vzvl=248) IMMATURE GRANULOCYTES-RELATIVE 2 % 0-1 PERCENT (BEAKER) (test dzcj=9830) (CELLAVISION MANUAL DIFF)2018-12-17 16:05:00 Test Item Value Reference Range Comments TOTAL COUNTED (BEAKER) (test cgjd=6089) WBC MORPHOLOGY (BEAKER) (test smoi=392) Normal PLT MORPHOLOGY (BEAKER) (test bnxw=920) Normal POLYCHROMATOPHILLIC RBCS(BEAKER) (test aklp=045) 1+ few ANISOCYTOSIS (BEAKER) (test bfyq=644) 1+ few [id number] 15:49:00 Test Item Value Reference Range Comments ACTIVATED CLOTTING TIME 103 sec TESTED AT [address] (BEAKER) (test eapa=830) [place] [address] [id number] 15:49:00 Test Item Value Reference Range Comments ACTIVATED CLOTTING TIME 400 sec TESTED AT [address] (BEAKER) (test zrxj=919) [place] [address] [id number] 15:49:00 Test Item Value Reference Range Comments ACTIVATED CLOTTING TIME 373 sec TESTED AT [address] (BEAKER) (test gotp=454) [place] [address] [id number] 15:49:00 Test Item Value Reference Range Comments ACTIVATED CLOTTING TIME 450 sec TESTED AT [address] (BEAKER) (test jrny=246) [place] [address] [id number] 15:49:00 Test Item Value Reference Range Comments ACTIVATED CLOTTING TIME 389 sec TESTED AT [address] (BEAKER) (test ranc=909) [place] [address] [id number] 15:49:00 Test Item Value Reference Range Comments ACTIVATED CLOTTING TIME 340 sec TESTED AT [place] [address] [facility] (BEAKER) (test uzpq=531) [place] [address] POCT-GLUCOSE [id number] 15:27:00 Test Item Value Reference Range Comments POC-GLUCOSE METER (BEAKER) 131 mg/dL 70-110 TESTED AT [facility] [address] [facility] (test suhv=9155) [facility] [address] LACTIC ACID, ARTERIAL, WHOLE [id number] 15:19:00 Test Item Value Reference Range Comments LACTATE BLOOD ARTERIAL (2) (BEAKER) (test 2.3 mmol/L 0.5-2.2 tgow=5450) [id number] 15:16:00 Test Item Value Reference Range Comments MAGNESIUM (BEAKER) (test wghh=899) 2.8 mg/dL 1.6-2.6 OXYGEN SATURATION, [id number] 14:57:00 Test Item Value Reference Range Comments O2 SATURATION (MEASURED) (BEAKER) (test jsow=3582) 51.5 % SODIUM NA-STAT [id number] 14:56:00 Test Item Value Reference Range Comments SODIUM (BEAKER) (test cjvb=280) 140 meq/L 135-148 POTASSIUM-STAT [id number] 14:56:00 Test Item Value Reference Range Comments POTASSIUM (BEAKER) (test efxb=997) 3.9 meq/L 3.6-5.5 HGB/HCT (H&H) - STAT [id number] 14:56:00 Test Item Value Reference Range Comments HEMOGLOBIN (BEAKER) (test ddcy=463) 12.3 g/dL 12.0-15.0 HEMATOCRIT (BEAKER) (test dgmp=119) 36.0 % 36.0-45.0 BLOOD GAS, [id number] 14:56:00 Test Item Value Reference Range Comments PH ARTERIAL (BEAKER) (test ckxi=099) 7.42 7.35-7.45 PCO2 ARTERIAL (BEAKER) (test aawe=309) 33 mmHg 35-45 PO2 ARTERIAL (BEAKER) (test vtua=439) 96 mmHg 80-90 O2 SATURATION ARTERIAL (BEAKER) (test uobq=743) 97.9 % 96.0-97.0 HCO3 ARTERIAL (BEAKER) (test piuc=196) 22 mmol/L 21-29 BASE EXCESS ARTERIAL (BEAKER) (test dfck=455) -3.0 mmol/L -2.0-3.0 PATIENT TEMPERATURE (BEAKER) (test cpck=4074) 35.0 C FIO2 (BEAKER) (test pvoc=5811) 60.0 % GLUCOSE-STAT [id number] 14:56:00 Test Item Value Reference Range Comments GLUCOSE RANDOM (BEAKER) (test lwyp=470) 141 mg/dL 70-110 BLOOD GAS, [id number] 13:28:00 Test Item Value Reference Range Comments PH ARTERIAL (BEAKER) (test bpao=175) 7.30 7.35-7.45 PCO2 ARTERIAL (BEAKER) (test botj=085) 42 mmHg 35-45 PO2 ARTERIAL (BEAKER) (test rdlr=879) 74 mmHg 80-90 O2 SATURATION ARTERIAL (BEAKER) (test nnzj=931) 94.6 % 96.0-97.0 HCO3 ARTERIAL (BEAKER) (test bnzu=993) 21 mmol/L 21-29 BASE EXCESS ARTERIAL (BEAKER) (test lpqb=264) -5.8 mmol/L -2.0-3.0 PATIENT TEMPERATURE (BEAKER) (test iywa=0188) 35.5 C FIO2 (BEAKER) (test vznp=4035) 60.0 % RAD, CHEST, 1 VIEW, NON [id number] 12:53:00Reason for exam:->PostopFINAL REPORT Chest x-ray Clinical [...] Tyler Verified Date/Time: 12/17/2018 12:53:38 Reading Location: [facility] B1 C013W Consult Reading Room PROTHROMBIN [id number] 12:37:00 Test Item Value Reference Range Comments PROTIME (BEAKER) (test wsrt=007) 17.4 seconds 11.7-14.7 INR (BEAKER) (test qhna=222) 1.4 <=5.9 RECOMMENDED COUMADIN/WARFARIN INR THERAPY RANGESSTANDARD DOSE: 2.0 - 3.0 Includes: PROPHYLAXIS forvenous thrombosis, systemic embolization; TREATMENT for venous thrombosis and/or pulmonary embolus.HIGH RISK: Target INR is 2.5-3.5 for patients with mechanical heart valves.[id number] 12:37:00 Test Item Value Reference Range Comments FIBRINOGEN LEVEL (BEAKER) (test dqeb=473) 238 mg/dl 225-434 [id number] 12:37:00 Test Item Value Reference Range Comments PARTIAL THROMBOPLASTIN TIME (BEAKER) (test 33.3 seconds 22.5-36.0 wfwk=507) [id number] 12:37:00 Test Item Value Reference Range Comments MAGNESIUM (BEAKER) (test sonc=088) 1.4 mg/dL 1.6-2.6 BASIC METABOLIC [id number] 12:37:00 Test Item Value Reference Range Comments SODIUM (BEAKER) (test 142 meq/L 136-145 gffv=826) POTASSIUM (BEAKER) (test 4.2 meq/L 3.5-5.1 gkrt=327) CHLORIDE (BEAKER) (test 113 meq/L 98-107 cnmc=114) CO2 (BEAKER) (test 22 meq/L 22-29 kbek=922) BLOOD UREA NITROGEN 15 mg/dL 7-21 (BEAKER) (test kort=533) CREATININE (BEAKER) (test 0.86 mg/dL 0.57-1.25 djdv=380) GLUCOSE RANDOM (BEAKER) 195 mg/dL 70-105 (test eapb=536) CALCIUM (BEAKER) (test 8.5 mg/dL 8.4-10.2 yedi=013) EGFR (BEAKER) (test 77 mL/min/1.73 sq m ESTIMATED GFR IS NOT umzh=1677) ACCURATE CREATININE CLEARANCE IN PREDICTING GLOMERULAR FILTRATION RATE. ESTIMATED GFR IS NOT APPLICABLE FOR DIALYSIS PATIENTS. LACTIC ACID, ARTERIAL, WHOLE [id number] 12:35:00 Test Item Value Reference Range Comments LACTATE BLOOD ARTERIAL (2) (BEAKER) (test 1.5 mmol/L 0.5-2.2 lkhv=4049) CALCIUM, [id number] 12:32:00 Test Item Value Reference Range Comments CALCIUM IONIZED (BEAKER) (test epzm=520) 1.19 mmol/L 1.12-1.27 PH, BLOOD (BEAKER) (test tazy=0072) 7.28 OXYGEN SATURATION, [id number] 12:32:00 Test Item Value Reference Range Comments O2 SATURATION (MEASURED) (BEAKER) (test qeoy=8991) 49.7 % BLOOD GAS, [id number] 12:31:00 Test Item Value Reference Range Comments PH ARTERIAL (BEAKER) (test taur=659) 7.31 7.35-7.45 PCO2 ARTERIAL (BEAKER) (test znhc=682) 44 mmHg 35-45 PO2 ARTERIAL (BEAKER) (test wdqt=004) 53 mmHg 80-90 O2 SATURATION ARTERIAL (BEAKER) (test rikj=790) 87.4 % 96.0-97.0 HCO3 ARTERIAL (BEAKER) (test zido=783) 22 mmol/L 21-29 BASE EXCESS ARTERIAL (BEAKER) (test yejs=581) -4.9 mmol/L -2.0-3.0 PATIENT TEMPERATURE (BEAKER) (test ceeu=9956) 35.3 C FIO2 (BEAKER) (test fuym=6135) 60.0 % BLOOD GAS, [id number] 10:54:00 Test Item Value Reference Range Comments PH ARTERIAL (BEAKER) (test vsgc=929) 7.36 7.35-7.45 PCO2 ARTERIAL (BEAKER) (test uhkh=859) 37 mmHg 35-45 PO2 ARTERIAL (BEAKER) (test ysdb=498) 220 mmHg 80-90 O2 SATURATION ARTERIAL (BEAKER) (test oedc=154) 99.4 % 96.0-97.0 HCO3 ARTERIAL (BEAKER) (test etiv=282) 21 mmol/L 21-29 BASE EXCESS ARTERIAL (BEAKER) (test tspy=167) -4.7 mmol/L -2.0-3.0 PATIENT TEMPERATURE (BEAKER) (test nktu=8962) 35.7 C FIO2 (BEAKER) (test xshk=2263) 100.0 % GLUCOSE-STAT [id number] 10:54:00 Test Item Value Reference Range Comments GLUCOSE RANDOM (BEAKER) (test acqg=940) 193 mg/dL 70-110 CALCIUM, [id number] 10:54:00 Test Item Value Reference Range Comments CALCIUM IONIZED (BEAKER) (test oril=768) 1.08 mmol/L 1.12-1.27 PH, BLOOD (BEAKER) (test fxoh=8333) 7.34 SODIUM NA-STAT [id number] 10:53:00 Test Item Value Reference Range Comments SODIUM (BEAKER) (test kche=894) 138 meq/L 135-148 POTASSIUM-STAT [id number] 10:53:00 Test Item Value Reference Range Comments POTASSIUM (BEAKER) (test djdu=560) 4.4 meq/L 3.6-5.5 HGB/HCT (H&H) - STAT [id number] 10:53:00 Test Item Value Reference Range Comments HEMOGLOBIN (BEAKER) (test zzle=989) 12.3 g/dL 12.0-15.0 HEMATOCRIT (BEAKER) (test xaah=142) 36.0 % 36.0-45.0 CALCIUM, [id number] 10:30:00 Test Item Value Reference Range Comments CALCIUM IONIZED (BEAKER) (test pebt=268) 1.16 mmol/L 1.12-1.27 PH, BLOOD (BEAKER) (test fxtn=7812) 7.34 BLOOD GAS, [id number] 10:25:00 Test Item Value Reference Range Comments PH ARTERIAL (BEAKER) (test twtl=722) 7.36 7.35-7.45 PCO2 ARTERIAL (BEAKER) (test gbov=661) 41 mmHg 35-45 PO2 ARTERIAL (BEAKER) (test jstf=612) 115 mmHg 80-90 O2 SATURATION ARTERIAL (BEAKER) (test jqqj=500) 98.2 % 96.0-97.0 HCO3 ARTERIAL (BEAKER) (test terw=537) 23 mmol/L 21-29 BASE EXCESS ARTERIAL (BEAKER) (test kzmh=421) -3.1 mmol/L -2.0-3.0 PATIENT TEMPERATURE (BEAKER) (test lhdv=3499) 35.7 C FIO2 (BEAKER) (test utai=9053) 100.0 % GLUCOSE-STAT [id number] 10:25:00 Test Item Value Reference Range Comments GLUCOSE RANDOM (BEAKER) (test qwbx=607) 223 mg/dL 70-110 HGB/HCT (H&H) - STAT [id number] 10:25:00 Test Item Value Reference Range Comments HEMOGLOBIN (BEAKER) (test mbai=018) 13.4 g/dL 12.0-15.0 HEMATOCRIT (BEAKER) (test txhq=564) 39.0 % 36.0-45.0 SODIUM NA-STAT [id number] 10:24:00 Test Item Value Reference Range Comments SODIUM (BEAKER) (test yymu=231) 136 meq/L 135-148 POTASSIUM-STAT [id number] 10:24:00 Test Item Value Reference Range Comments POTASSIUM (BEAKER) (test crdu=432) 5.0 meq/L 3.6-5.5 POTASSIUM-STAT [id number] 09:51:00 Test Item Value Reference Range Comments POTASSIUM (BEAKER) (test fjrd=051) 6.4 meq/L 3.6-5.5 BLOOD GAS, [id number] 09:45:00 Test Item Value Reference Range Comments PH ARTERIAL (BEAKER) (test nprq=222) 7.42 7.35-7.45 PCO2 ARTERIAL (BEAKER) (test lvtm=650) 37 mmHg 35-45 PO2 ARTERIAL (BEAKER) (test munv=579) 277 mmHg 80-90 O2 SATURATION ARTERIAL (BEAKER) (test edpj=265) 99.7 % 96.0-97.0 HCO3 ARTERIAL (BEAKER) (test ekbs=388) 24 mmol/L 21-29 BASE EXCESS ARTERIAL (BEAKER) (test uyuu=871) -0.7 mmol/L -2.0-3.0 PATIENT TEMPERATURE (BEAKER) (test vfia=0285) 34.4 C FIO2 (BEAKER) (test xvhy=9532) 70.0 % GLUCOSE-STAT [id number] 09:45:00 Test Item Value Reference Range Comments GLUCOSE RANDOM (BEAKER) (test gwsf=642) 235 mg/dL 70-110 HGB/HCT (H&H) - STAT [id number] 09:45:00 Test Item Value Reference Range Comments HEMOGLOBIN (BEAKER) (test myza=694) 9.0 g/dL 12.0-15.0 HEMATOCRIT (BEAKER) (test yrog=237) 26.0 % 36.0-45.0 SODIUM NA-STAT [id number] 09:45:00 Test Item Value Reference Range Comments SODIUM (BEAKER) (test yowk=505) 134 meq/L 135-148 HGB/HCT (H&H) - STAT [id number] 09:23:00 Test Item Value Reference Range Comments HEMOGLOBIN (BEAKER) (test wvnb=323) 5.3 g/dL 12.0-15.0 HEMATOCRIT (BEAKER) (test hnup=151) 16.0 % 36.0-45.0 SODIUM NA-STAT [id number] 09:16:00 Test Item Value Reference Range Comments SODIUM (BEAKER) (test tewr=662) 130 meq/L 135-148 POTASSIUM-STAT [id number] 09:16:00 Test Item Value Reference Range Comments POTASSIUM (BEAKER) (test vghh=848) 5.7 meq/L 3.6-5.5 BLOOD GAS, [id number] 09:15:00 Test Item Value Reference Range Comments PH ARTERIAL (BEAKER) (test ztlw=622) 7.29 7.35-7.45 PCO2 ARTERIAL (BEAKER) (test mymn=168) 40 mmHg 35-45 PO2 ARTERIAL (BEAKER) (test tjkt=075) 270 mmHg 80-90 O2 SATURATION ARTERIAL (BEAKER) (test blde=322) 99.6 % 96.0-97.0 HCO3 ARTERIAL (BEAKER) (test oihd=591) 20 mmol/L 21-29 BASE EXCESS ARTERIAL (BEAKER) (test njhx=316) -7.0 mmol/L -2.0-3.0 PATIENT TEMPERATURE (BEAKER) (test dubg=0814) 34.1 C FIO2 (BEAKER) (test kodd=1074) 65.0 % GLUCOSE-STAT [id number] 09:15:00 Test Item Value Reference Range Comments GLUCOSE RANDOM (BEAKER) (test ysnh=992) 206 mg/dL 70-110 BLOOD GAS, [id number] 08:17:00 Test Item Value Reference Range Comments PH ARTERIAL (BEAKER) (test erwx=217) 7.49 7.35-7.45 PCO2 ARTERIAL (BEAKER) (test qipd=745) 27 mmHg 35-45 PO2 ARTERIAL (BEAKER) (test ngxf=601) 436 mmHg 80-90 O2 SATURATION ARTERIAL (BEAKER) (test pmiv=918) 99.9 % 96.0-97.0 HCO3 ARTERIAL (BEAKER) (test wiki=038) 21 mmol/L 21-29 BASE EXCESS ARTERIAL (BEAKER) (test cvnn=970) -2.3 mmol/L -2.0-3.0 PATIENT TEMPERATURE (BEAKER) (test cywp=2617) 35.3 C FIO2 (BEAKER) (test pxfh=4663) 100.0 % GLUCOSE-STAT [id number] 08:17:00 Test Item Value Reference Range Comments GLUCOSE RANDOM (BEAKER) (test dgie=295) 124 mg/dL 70-110 HGB/HCT (H&H) - STAT [id number] 08:17:00 Test Item Value Reference Range Comments HEMOGLOBIN (BEAKER) (test legc=139) 10.0 g/dL 12.0-15.0 HEMATOCRIT (BEAKER) (test nfmf=046) 29.0 % 36.0-45.0 CALCIUM, [id number] 08:17:00 Test Item Value Reference Range Comments CALCIUM IONIZED (BEAKER) (test uzaj=555) 1.10 mmol/L 1.12-1.27 PH, BLOOD (BEAKER) (test xcdm=1515) 7.47 SODIUM NA-STAT [id number] 08:16:00 Test Item Value Reference Range Comments SODIUM (BEAKER) (test aket=514) 138 meq/L 135-148 POTASSIUM-STAT [id number] 08:16:00 Test Item Value Reference Range Comments POTASSIUM (BEAKER) (test myjp=648) 4.2 meq/L 3.6-5.5 [id number] 06:01:00 Test Item Value Reference Range Comments MAGNESIUM (BEAKER) (test lkox=297) 1.5 mg/dL 1.6-2.6 BASIC METABOLIC [id number] 06:01:00 Test Item Value Reference Range Comments SODIUM (BEAKER) (test 141 meq/L 136-145 hpyi=698) POTASSIUM (BEAKER) (test 4.6 meq/L 3.5-5.1 dwut=242) CHLORIDE (BEAKER) (test 112 meq/L 98-107 gjsr=288) CO2 (BEAKER) (test 22 meq/L 22-29 ulcg=035) BLOOD UREA NITROGEN 17 mg/dL 7-21 (BEAKER) (test dbzy=813) CREATININE (BEAKER) (test 1.03 mg/dL 0.57-1.25 jlyi=673) GLUCOSE RANDOM (BEAKER) 109 mg/dL 70-105 (test gabz=390) CALCIUM (BEAKER) (test 9.7 mg/dL 8.4-10.2 ewck=832) EGFR (BEAKER) (test 63 mL/min/1.73 sq m ESTIMATED GFR IS NOT xyvb=0090) ACCURATE CREATININE CLEARANCE IN PREDICTING GLOMERULAR FILTRATION RATE. ESTIMATED GFR IS NOT APPLICABLE FOR DIALYSIS PATIENTS. [id number] 05:50:00 Test Item Value Reference Range Comments PARTIAL THROMBOPLASTIN TIME (BEAKER) (test 81.2 seconds 22.5-36.0 zsdz=466) PROTHROMBIN TIME/[id number] 05:49:00 Test Item Value Reference Range Comments PROTIME (BEAKER) (test ycin=135) 14.2 seconds 11.7-14.7 INR (BEAKER) (test xpxe=654) 1.1 <=5.9 RECOMMENDED COUMADIN/WARFARIN INR THERAPY RANGESSTANDARD DOSE: 2.0 - 3.0 Includes: PROPHYLAXIS forvenous thrombosis, systemic embolization; TREATMENT for venous thrombosis and/or pulmonary embolus.HIGH RISK: Target INR is 2.5-3.5 for patients with mechanical heart valves.CBC (HEMOGRAM ONLY)2018-12-17 05:40:00 Test Item Value Reference Range Comments WHITE BLOOD CELL COUNT (BEAKER) (test aiol=598) 4.9 K/ L 3.5-10.5 RED BLOOD CELL COUNT (BEAKER) (test xfld=418) 3.05 M/ L 3.93-5.22 HEMOGLOBIN (BEAKER) (test dycs=390) 10.0 GM/DL 11.2-15.7 HEMATOCRIT (BEAKER) (test agrx=292) 31.8 % 34.1-44.9 MEAN CORPUSCULAR VOLUME (BEAKER) (test lsdq=917) 104.3 fL 79.4-94.8 MEAN CORPUSCULAR HEMOGLOBIN (BEAKER) (test 32.8 pg 25.6-32.2 jwqy=832) MEAN CORPUSCULAR HEMOGLOBIN CONC (BEAKER) (test 31.4 GM/DL 32.2-35.5 hpte=742) RED CELL DISTRIBUTION WIDTH (BEAKER) (test 14.8 % 11.7-14.4 zthi=473) PLATELET COUNT (BEAKER) (test upzn=032) 171 K/CU MM 150-450 MEAN PLATELET VOLUME (BEAKER) (test ooxu=202) 12.5 fL 9.4-12.3 NUCLEATED RED BLOOD CELLS (BEAKER) (test 0 /100 WBC 0-0 teth=198) POCT-GLUCOSE [id number] 21:31:00 Test Item Value Reference Range Comments POC-GLUCOSE METER (BEAKER) 123 mg/dL 70-110 TESTED AT [address] (test fzqr=6486) [place] [id number] POCT-GLUCOSE [id number] 17:23:00 Test Item Value Reference Range Comments POC-GLUCOSE METER (BEAKER) 121 mg/dL 70-110 TESTED AT [address] (test ajhe=1351) [place] [id number] POCT-GLUCOSE [id number] 12:37:00 Test Item Value Reference Range Comments POC-GLUCOSE METER (BEAKER) 167 mg/dL 70-110 TESTED AT [address] (test auew=0550) [place] [id number] POCT-GLUCOSE [id number] 09:52:00 Test Item Value Reference Range Comments POC-GLUCOSE METER (BEAKER) 227 mg/dL 70-110 TESTED AT [address] (test zpda=3380) [place] [id number] [id number] 04:44:00 Test Item Value Reference Range Comments PARTIAL THROMBOPLASTIN TIME (BEAKER) (test 66.8 seconds 22.5-36.0 tkfl=217) [id number] 04:42:00 Test Item Value Reference Range Comments MAGNESIUM (BEAKER) (test dcnr=808) 1.7 mg/dL 1.6-2.6 BASIC METABOLIC [id number] 04:42:00 Test Item Value Reference Range Comments SODIUM (BEAKER) (test 139 meq/L 136-145 kzbs=479) POTASSIUM (BEAKER) (test 4.0 meq/L 3.5-5.1 xshy=575) CHLORIDE (BEAKER) (test 111 meq/L 98-107 glcf=874) CO2 (BEAKER) (test 22 meq/L 22-29 isvg=906) BLOOD UREA NITROGEN 19 mg/dL 7-21 (BEAKER) (test cybh=783) CREATININE (BEAKER) (test 1.09 mg/dL 0.57-1.25 pfro=170) GLUCOSE RANDOM (BEAKER) 109 mg/dL 70-105 (test ysza=897) CALCIUM (BEAKER) (test 9.3 mg/dL 8.4-10.2 szba=859) EGFR (BEAKER) (test 59 mL/min/1.73 sq m ESTIMATED GFR IS NOT dxqx=8187) ACCURATE CREATININE CLEARANCE IN PREDICTING GLOMERULAR FILTRATION RATE. ESTIMATED GFR IS NOT APPLICABLE FOR DIALYSIS PATIENTS. CBC (HEMOGRAM ONLY)2018-12-16 04:25:00 Test Item Value Reference Range Comments WHITE BLOOD CELL COUNT (BEAKER) (test zehd=777) 4.5 K/ L 3.5-10.5 RED BLOOD CELL COUNT (BEAKER) (test mjqr=311) 2.86 M/ L 3.93-5.22 HEMOGLOBIN (BEAKER) (test mmym=297) 9.3 GM/DL 11.2-15.7 HEMATOCRIT (BEAKER) (test ykcu=778) 29.8 % 34.1-44.9 MEAN CORPUSCULAR VOLUME (BEAKER) (test myvi=991) 104.2 fL 79.4-94.8 MEAN CORPUSCULAR HEMOGLOBIN (BEAKER) (test 32.5 pg 25.6-32.2 vggh=075) MEAN CORPUSCULAR HEMOGLOBIN CONC (BEAKER) (test 31.2 GM/DL 32.2-35.5 aaes=794) RED CELL DISTRIBUTION WIDTH (BEAKER) (test 14.7 % 11.7-14.4 llfe=344) PLATELET COUNT (BEAKER) (test huiz=597) 181 K/CU MM 150-450 MEAN PLATELET VOLUME (BEAKER) (test waxo=602) 12.2 fL 9.4-12.3 NUCLEATED RED BLOOD CELLS (BEAKER) (test 0 /100 WBC 0-0 twbr=280) [id number] 23:39:00 Test Item Value Reference Range Comments PARTIAL THROMBOPLASTIN TIME (BEAKER) (test 70.2 seconds 22.5-36.0 bvcz=735) POCT-GLUCOSE [id number] 21:47:00 Test Item Value Reference Range Comments POC-GLUCOSE METER (BEAKER) 145 mg/dL 70-110 TESTED AT [address] (test punl=7152) [place] [address] POCT-GLUCOSE [id number] 18:36:00 Test Item Value Reference Range Comments POC-GLUCOSE METER (BEAKER) 143 mg/dL 70-110 TESTED AT [address] (test tmup=5866) [place] [address] [id number] 17:07:00 Test Item Value Reference Range Comments PARTIAL THROMBOPLASTIN TIME (BEAKER) (test 65.6 seconds 22.5-36.0 lrcc=417) [id number] 09:50:00 Test Item Value Reference Range Comments PARTIAL THROMBOPLASTIN TIME (BEAKER) (test 58.1 seconds 22.5-36.0 stbm=492) POCT-GLUCOSE [id number] 09:08:00 Test Item Value Reference Range Comments POC-GLUCOSE METER (BEAKER) 164 mg/dL 70-110 TESTED AT [address] (test jati=8663) [place] [address] [id number] 04:08:00 Test Item Value Reference Range Comments PARTIAL THROMBOPLASTIN TIME (BEAKER) (test 79.3 seconds 22.5-36.0 wgfi=047) [id number] 04:05:00 Test Item Value Reference Range Comments MAGNESIUM (BEAKER) (test wjol=084) 1.5 mg/dL 1.6-2.6 BASIC METABOLIC [id number] 04:05:00 Test Item Value Reference Range Comments SODIUM (BEAKER) (test 140 meq/L 136-145 fsqc=410) POTASSIUM (BEAKER) (test 4.2 meq/L 3.5-5.1 ctwd=054) CHLORIDE (BEAKER) (test 110 meq/L 98-107 ngna=771) CO2 (BEAKER) (test 22 meq/L 22-29 encb=463) BLOOD UREA NITROGEN 19 mg/dL 7-21 (BEAKER) (test xyot=578) CREATININE (BEAKER) (test 1.04 mg/dL 0.57-1.25 kqko=158) GLUCOSE RANDOM (BEAKER) 118 mg/dL 70-105 (test ucym=177) CALCIUM (BEAKER) (test 9.6 mg/dL 8.4-10.2 bijn=018) EGFR (BEAKER) (test 62 mL/min/1.73 sq m ESTIMATED GFR IS NOT rtmg=8375) ACCURATE CREATININE CLEARANCE IN PREDICTING GLOMERULAR FILTRATION RATE. ESTIMATED GFR IS NOT APPLICABLE FOR DIALYSIS PATIENTS. CBC (HEMOGRAM ONLY)2018-12-15 03:57:00 Test Item Value Reference Range Comments WHITE BLOOD CELL COUNT (BEAKER) (test dskl=776) 5.5 K/ L 3.5-10.5 RED BLOOD CELL COUNT (BEAKER) (test ollz=828) 2.99 M/ L 3.93-5.22 HEMOGLOBIN (BEAKER) (test vnfa=062) 9.7 GM/DL 11.2-15.7 HEMATOCRIT (BEAKER) (test bclv=568) 31.2 % 34.1-44.9 MEAN CORPUSCULAR VOLUME (BEAKER) (test hksr=877) 104.3 fL 79.4-94.8 MEAN CORPUSCULAR HEMOGLOBIN (BEAKER) (test 32.4 pg 25.6-32.2 mzap=409) MEAN CORPUSCULAR HEMOGLOBIN CONC (BEAKER) (test 31.1 GM/DL 32.2-35.5 ltfh=732) RED CELL DISTRIBUTION WIDTH (BEAKER) (test 14.6 % 11.7-14.4 mkji=742) PLATELET COUNT (BEAKER) (test uryb=175) 167 K/CU MM 150-450 MEAN PLATELET VOLUME (BEAKER) (test dhvm=419) 12.3 fL 9.4-12.3 NUCLEATED RED BLOOD CELLS (BEAKER) (test 0 /100 WBC 0-0 obff=710) [id number] 21:53:00 Test Item Value Reference Range Comments PARTIAL THROMBOPLASTIN TIME (BEAKER) (test 112.2 seconds 22.5-36.0 elyh=904) POCT-GLUCOSE [id number] 20:34:00 Test Item Value Reference Range Comments POC-GLUCOSE METER (BEAKER) 125 mg/dL 70-110 TESTED AT [address] (test peop=3070) [place] [address] OCCULT BLOOD, [id number] 14:49:00 Test Item Value Reference Range Comments FECAL OCCULT BLOOD (BEAKER) (test rrwv=185) Negative Negative POCT-GLUCOSE [id number] 14:43:00 Test Item Value Reference Range Comments POC-GLUCOSE METER (BEAKER) 128 mg/dL 70-110 TESTED AT [address] (test ydhu=2205) [place] [address] [id number] 14:43:00 Test Item Value Reference Range Comments PARTIAL THROMBOPLASTIN TIME (BEAKER) (test 104.0 seconds 22.5-36.0 wcit=950) C. DIFFICILE GDH [id number] 09:11:00 Test Item Value Reference Range Comments CDT TOXIN (test Negative Negative jhyr=[id number]) CDT GDH ANTIGEN (test Positive Negative C. difficile present but toxin mxzc=[id number]) not detected. Indicates colonization with non-toxigenic strain [...] of kit performance was done by the [facility] Microbiology Lab prior to clinical use.[id number] 07:50:00 Test Item Value Reference Range Comments MAGNESIUM (BEAKER) (test 1.8 mg/dL 1.6-2.6 Specimen slightly hemolyzed ujdd=616) BASIC METABOLIC [id number] 07:50:00 Test Item Value Reference Range Comments SODIUM (BEAKER) (test 137 meq/L 136-145 avxx=635) POTASSIUM (BEAKER) (test 4.8 meq/L 3.5-5.1 Specimen slightly hhwa=561) hemolyzed CHLORIDE (BEAKER) (test 107 meq/L 98-107 ssku=645) CO2 (BEAKER) (test 20 meq/L 22-29 pzxa=947) BLOOD UREA NITROGEN 21 mg/dL 7-21 (BEAKER) (test tutp=447) CREATININE (BEAKER) (test 1.11 mg/dL 0.57-1.25 Specimen slightly irdh=699) hemolyzed GLUCOSE RANDOM (BEAKER) 97 mg/dL 70-105 (test ybti=140) CALCIUM (BEAKER) (test 9.3 mg/dL 8.4-10.2 kujt=701) EGFR (BEAKER) (test 57 mL/min/1.73 sq m ESTIMATED GFR IS NOT okwm=7726) ACCURATE CREATININE CLEARANCE IN PREDICTING GLOMERULAR FILTRATION RATE. ESTIMATED GFR IS NOT APPLICABLE FOR DIALYSIS PATIENTS. POCT-GLUCOSE [id number] 07:49:00 Test Item Value Reference Range Comments POC-GLUCOSE METER (BEAKER) 131 mg/dL 70-110 TESTED AT [facility] [address] [place] [address] (test remg=2438) [facility] [address] [id number] 07:18:00 Test Item Value Reference Range Comments PARTIAL THROMBOPLASTIN TIME (BEAKER) (test 38.8 seconds 22.5-36.0 rmuh=786) CBC (HEMOGRAM ONLY)2018-12-14 07:00:00 Test Item Value Reference Range Comments WHITE BLOOD CELL COUNT (BEAKER) (test zoul=925) 4.9 K/ L 3.5-10.5 RED BLOOD CELL COUNT (BEAKER) (test jsmy=302) 2.91 M/ L 3.93-5.22 HEMOGLOBIN (BEAKER) (test tevm=702) 9.5 GM/DL 11.2-15.7 HEMATOCRIT (BEAKER) (test dxcd=075) 30.8 % 34.1-44.9 MEAN CORPUSCULAR VOLUME (BEAKER) (test lizo=146) 105.8 fL 79.4-94.8 MEAN CORPUSCULAR HEMOGLOBIN (BEAKER) (test 32.6 pg 25.6-32.2 jauk=333) MEAN CORPUSCULAR HEMOGLOBIN CONC (BEAKER) (test 30.8 GM/DL 32.2-35.5 lajq=663) RED CELL DISTRIBUTION WIDTH (BEAKER) (test 14.6 % 11.7-14.4 ribx=658) PLATELET COUNT (BEAKER) (test ohcf=930) 177 K/CU MM 150-450 MEAN PLATELET VOLUME (BEAKER) (test nxwc=124) 12.7 fL 9.4-12.3 NUCLEATED RED BLOOD CELLS (BEAKER) (test 0 /100 WBC 0-0 fbpa=358) [id number] 21:36:00 Test Item Value Reference Range Comments PARTIAL THROMBOPLASTIN TIME (BEAKER) (test 73.2 seconds 22.5-36.0 wumi=962) POCT-GLUCOSE [id number] 21:14:00 Test Item Value Reference Range Comments POC-GLUCOSE METER (BEAKER) 116 mg/dL 70-110 TESTED AT [address] (test ockj=1379) [place] [address] POCT-GLUCOSE [id number] 18:13:00 Test Item Value Reference Range Comments POC-GLUCOSE METER (BEAKER) 150 mg/dL 70-110 TESTED AT [address] (test shea=1939) [place] [address] [id number] 14:26:00 Test Item Value Reference Range Comments PARTIAL THROMBOPLASTIN TIME (BEAKER) (test 87.5 seconds 22.5-36.0 nqrn=891) POCT-GLUCOSE [id number] 12:54:00 Test Item Value Reference Range Comments POC-GLUCOSE METER (BEAKER) 140 mg/dL 70-110 TESTED AT [address] (test olcn=5446) [place] [id number] POCT-GLUCOSE [id number] 09:38:00 Test Item Value Reference Range Comments POC-GLUCOSE METER (BEAKER) 148 mg/dL 70-110 TESTED AT [address] (test kmzr=8585) [place] [address] [id number] 06:53:00 Test Item Value Reference Range Comments MAGNESIUM (BEAKER) (test lhtt=352) 2.0 mg/dL 1.6-2.6 BASIC METABOLIC [id number] 06:53:00 Test Item Value Reference Range Comments SODIUM (BEAKER) (test 138 meq/L 136-145 vejc=216) POTASSIUM (BEAKER) (test 4.5 meq/L 3.5-5.1 paie=174) CHLORIDE (BEAKER) (test 106 meq/L 98-107 hxld=816) CO2 (BEAKER) (test 22 meq/L 22-29 zfwf=902) BLOOD UREA NITROGEN 24 mg/dL 7-21 (BEAKER) (test hnib=042) CREATININE (BEAKER) (test 1.18 mg/dL 0.57-1.25 enhw=071) GLUCOSE RANDOM (BEAKER) 128 mg/dL 70-105 (test ldhz=392) CALCIUM (BEAKER) (test 9.5 mg/dL 8.4-10.2 dvfn=901) EGFR (BEAKER) (test 54 mL/min/1.73 sq m ESTIMATED GFR IS NOT zoki=2835) ACCURATE CREATININE CLEARANCE IN PREDICTING GLOMERULAR FILTRATION RATE. ESTIMATED GFR IS NOT APPLICABLE FOR DIALYSIS PATIENTS. [id number] 06:39:00 Test Item Value Reference Range Comments PARTIAL THROMBOPLASTIN TIME (BEAKER) (test 109.7 seconds 22.5-36.0 axyh=432) CBC (HEMOGRAM ONLY)2018-12-13 06:19:00 Test Item Value Reference Range Comments WHITE BLOOD CELL COUNT (BEAKER) (test uuuu=921) 5.2 K/ L 3.5-10.5 RED BLOOD CELL COUNT (BEAKER) (test oyvc=295) 3.38 M/ L 3.93-5.22 HEMOGLOBIN (BEAKER) (test sxiv=041) 10.8 GM/DL 11.2-15.7 HEMATOCRIT (BEAKER) (test vqou=721) 35.6 % 34.1-44.9 MEAN CORPUSCULAR VOLUME (BEAKER) (test mzxc=608) 105.3 fL 79.4-94.8 MEAN CORPUSCULAR HEMOGLOBIN (BEAKER) (test 32.0 pg 25.6-32.2 pfbb=236) MEAN CORPUSCULAR HEMOGLOBIN CONC (BEAKER) (test 30.3 GM/DL 32.2-35.5 wblp=635) RED CELL DISTRIBUTION WIDTH (BEAKER) (test 14.5 % 11.7-14.4 gtqt=539) PLATELET COUNT (BEAKER) (test hwez=042) 190 K/CU MM 150-450 MEAN PLATELET VOLUME (BEAKER) (test bxse=322) 12.4 fL 9.4-12.3 NUCLEATED RED BLOOD CELLS (BEAKER) (test 0 /100 WBC 0-0 wycz=954) POCT-GLUCOSE [id number] 23:24:00 Test Item Value Reference Range Comments POC-GLUCOSE METER (BEAKER) 157 mg/dL 70-110 TESTED AT [address] (test hzzs=0477) [place] [address] POCT-GLUCOSE [id number] 18:13:00 Test Item Value Reference Range Comments POC-GLUCOSE METER (BEAKER) 135 mg/dL 70-110 TESTED AT [address] (test ghyh=7446) [place] [address] POCT-GLUCOSE [id number] 13:04:00 Test Item Value Reference Range Comments POC-GLUCOSE METER (BEAKER) 147 mg/dL 70-110 TESTED AT [address] (test vyzf=1692) [place] [address] [id number] 12:49:00 Test Item Value Reference Range Comments PARTIAL THROMBOPLASTIN TIME (BEAKER) (test 92.6 seconds 22.5-36.0 teaq=646) POCT-GLUCOSE [id number] 08:55:00 Test Item Value Reference Range Comments POC-GLUCOSE METER (BEAKER) 144 mg/dL 70-110 TESTED AT [address] (test nodq=5803) [place] [address] [id number] 05:30:00 Test Item Value Reference Range Comments PARTIAL THROMBOPLASTIN TIME (BEAKER) (test 84.5 seconds 22.5-36.0 nuqc=286) [id number] 02:15:00 Test Item Value Reference Range Comments PARTIAL THROMBOPLASTIN TIME (BEAKER) (test 160.4 seconds 22.5-36.0 kpoj=258) [id number] 01:51:00 Test Item Value Reference Range Comments MAGNESIUM (BEAKER) (test sxwn=268) 1.7 mg/dL 1.6-2.6 BASIC METABOLIC [id number] 01:51:00 Test Item Value Reference Range Comments SODIUM (BEAKER) (test 137 meq/L 136-145 ixfp=879) POTASSIUM (BEAKER) (test 4.1 meq/L 3.5-5.1 rxyp=349) CHLORIDE (BEAKER) (test 106 meq/L 98-107 vzoz=091) CO2 (BEAKER) (test 21 meq/L 22-29 rzhr=767) BLOOD UREA NITROGEN 25 mg/dL 7-21 (BEAKER) (test wehf=305) CREATININE (BEAKER) (test 1.25 mg/dL 0.57-1.25 cbkb=489) GLUCOSE RANDOM (BEAKER) 101 mg/dL 70-105 (test otga=218) CALCIUM (BEAKER) (test 9.2 mg/dL 8.4-10.2 tbai=758) EGFR (BEAKER) (test 50 mL/min/1.73 sq m ESTIMATED GFR IS NOT zjuz=1886) ACCURATE CREATININE CLEARANCE IN PREDICTING GLOMERULAR FILTRATION RATE. ESTIMATED GFR IS NOT APPLICABLE FOR DIALYSIS PATIENTS. CBC (HEMOGRAM ONLY)2018-12-12 01:24:00 Test Item Value Reference Range Comments WHITE BLOOD CELL COUNT (BEAKER) (test dxwv=729) 6.0 K/ L 3.5-10.5 RED BLOOD CELL COUNT (BEAKER) (test upsk=783) 2.99 M/ L 3.93-5.22 HEMOGLOBIN (BEAKER) (test relg=523) 9.7 GM/DL 11.2-15.7 HEMATOCRIT (BEAKER) (test vkyg=713) 30.4 % 34.1-44.9 MEAN CORPUSCULAR VOLUME (BEAKER) (test wkiu=347) 101.7 fL 79.4-94.8 MEAN CORPUSCULAR HEMOGLOBIN (BEAKER) (test 32.4 pg 25.6-32.2 osqx=620) MEAN CORPUSCULAR HEMOGLOBIN CONC (BEAKER) (test 31.9 GM/DL 32.2-35.5 fmpf=723) RED CELL DISTRIBUTION WIDTH (BEAKER) (test 14.5 % 11.7-14.4 pkkq=649) PLATELET COUNT (BEAKER) (test jqpx=280) 197 K/CU MM 150-450 MEAN PLATELET VOLUME (BEAKER) (test ugpb=260) 12.0 fL 9.4-12.3 NUCLEATED RED BLOOD CELLS (BEAKER) (test 0 /100 WBC 0-0 mest=899) POCT-GLUCOSE [id number] 18:06:00 Test Item Value Reference Range Comments POC-GLUCOSE METER (BEAKER) 110 mg/dL 70-110 TESTED AT [address] (test kojl=9974) [facility] [address] [id number] 17:35:00 Test Item Value Reference Range Comments PARTIAL THROMBOPLASTIN TIME (BEAKER) (test 49.2 seconds 22.5-36.0 tqdm=830) POCT-GLUCOSE [id number] 14:02:00 Test Item Value Reference Range Comments POC-GLUCOSE METER (BEAKER) 215 mg/dL 70-110 TESTED AT [address] (test fcqc=6136) [place] [address] [id number] 11:09:00 Test Item Value Reference Range Comments PARTIAL THROMBOPLASTIN TIME (BEAKER) (test 52.4 seconds 22.5-36.0 bwjf=704) Prior to initiating heparinPOCT-GLUCOSE [id number] 08:34:00 Test Item Value Reference Range Comments POC-GLUCOSE METER (BEAKER) 121 mg/dL 70-110 TESTED AT [address] (test xyfb=8318) [place] [id number] POCT-GLUCOSE [id number] 21:46:00 Test Item Value Reference Range Comments POC-GLUCOSE METER (BEAKER) 132 mg/dL 70-110 TESTED AT [address] (test qxzo=4791) [place] [address] POCT-GLUCOSE [id number] 17:30:00 Test Item Value Reference Range Comments POC-GLUCOSE METER (BEAKER) 146 mg/dL 70-110 TESTED AT [address] (test bpoc=8402) [place] [address] POCT-GLUCOSE [id number] 13:44:00 Test Item Value Reference Range Comments POC-GLUCOSE METER (BEAKER) 124 mg/dL 70-110 TESTED AT [address] (test pscu=4465) [place] [address] POCT-GLUCOSE [id number] 09:03:00 Test Item Value Reference Range Comments POC-GLUCOSE METER (BEAKER) 136 mg/dL 70-110 TESTED AT [address] (test tttb=5696) [place] [address] CBC W/PLT COUNT & AUTO [id number] 07:24:00 Test Item Value Reference Range Comments WHITE BLOOD CELL COUNT (BEAKER) (test qugr=937) 5.8 K/ L 3.5-10.5 RED BLOOD CELL COUNT (BEAKER) (test rygb=763) 3.17 M/ L 3.93-5.22 HEMOGLOBIN (BEAKER) (test rmlo=664) 10.4 GM/DL 11.2-15.7 HEMATOCRIT (BEAKER) (test ixpy=669) 33.1 % 34.1-44.9 MEAN CORPUSCULAR VOLUME (BEAKER) (test uoat=461) 104.4 fL 79.4-94.8 MEAN CORPUSCULAR HEMOGLOBIN (BEAKER) (test 32.8 pg 25.6-32.2 zckr=571) MEAN CORPUSCULAR HEMOGLOBIN CONC (BEAKER) (test 31.4 GM/DL 32.2-35.5 kvhc=654) RED CELL DISTRIBUTION WIDTH (BEAKER) (test 14.5 % 11.7-14.4 xdkc=648) PLATELET COUNT (BEAKER) (test slsw=661) 218 K/CU MM 150-450 MEAN PLATELET VOLUME (BEAKER) (test epef=622) 12.2 fL 9.4-12.3 NUCLEATED RED BLOOD CELLS (BEAKER) (test 0 /100 WBC 0-0 pfjk=935) NEUTROPHILS RELATIVE PERCENT (BEAKER) (test 66 % fbwu=570) LYMPHOCYTES RELATIVE PERCENT (BEAKER) (test 25 % sjze=908) MONOCYTES RELATIVE PERCENT (BEAKER) (test 6 % hqih=821) EOSINOPHILS RELATIVE PERCENT (BEAKER) (test 2 % kior=972) BASOPHILS RELATIVE PERCENT (BEAKER) (test 1 % yuvl=829) NEUTROPHILS ABSOLUTE COUNT (BEAKER) (test 3.84 K/ L 1.56-6.13 akfa=420) LYMPHOCYTES ABSOLUTE COUNT (BEAKER) (test 1.45 K/ L 1.18-3.74 dnvz=058) MONOCYTES ABSOLUTE COUNT (BEAKER) (test 0.34 K/ L 0.24-0.36 wonl=810) EOSINOPHILS ABSOLUTE COUNT (BEAKER) (test 0.13 K/ L 0.04-0.36 ians=462) BASOPHILS ABSOLUTE COUNT (BEAKER) (test 0.04 K/ L 0.01-0.08 unjk=123) IMMATURE GRANULOCYTES-RELATIVE PERCENT (BEAKER) 0 % 0-1 (test fjiw=2788) [id number] 06:43:00 Test Item Value Reference Range Comments MAGNESIUM (BEAKER) (test zklo=309) 1.4 mg/dL 1.6-2.6 BASIC METABOLIC [id number] 06:43:00 Test Item Value Reference Range Comments SODIUM (BEAKER) (test 140 meq/L 136-145 hruf=947) POTASSIUM (BEAKER) (test 4.1 meq/L 3.5-5.1 kjse=928) CHLORIDE (BEAKER) (test 108 meq/L 98-107 kvdx=418) CO2 (BEAKER) (test 21 meq/L 22-29 nsov=603) BLOOD UREA NITROGEN 22 mg/dL 7-21 (BEAKER) (test llne=377) CREATININE (BEAKER) (test 1.08 mg/dL 0.57-1.25 jomw=326) GLUCOSE RANDOM (BEAKER) 101 mg/dL 70-105 (test tgtm=614) CALCIUM (BEAKER) (test 9.2 mg/dL 8.4-10.2 gpda=868) EGFR (BEAKER) (test 59 mL/min/1.73 sq m ESTIMATED GFR IS NOT uhun=6922) ACCURATE CREATININE CLEARANCE IN PREDICTING GLOMERULAR FILTRATION RATE. ESTIMATED GFR IS NOT APPLICABLE FOR DIALYSIS PATIENTS. [id number] 06:36:00 Test Item Value Reference Range Comments PARTIAL THROMBOPLASTIN TIME (BEAKER) (test 70.2 seconds 22.5-36.0 gcps=556) TROPONIN [id number] 00:58:00 Test Item Value Reference Range Comments TROPONIN I (BEAKER) (test labt=305) 0.03 ng/mL 0.00-0.03 Troponin I (TnI) levels [...] failure, acidosis, acute neurological disease, and persistent tachyarrhythmia.[id number] 00:23:00 Test Item Value Reference Range Comments PARTIAL THROMBOPLASTIN TIME (BEAKER) (test 46.8 seconds 22.5-36.0 grsy=769) Prior to initiating heparinPOCT-GLUCOSE [id number] 23:28:00 Test Item Value Reference Range Comments POC-GLUCOSE METER (BEAKER) 96 mg/dL 70-110 TESTED AT [address] (test pggm=3713) [facility] [address] TROPONIN [id number] 18:41:00 Test Item Value Reference Range Comments TROPONIN I (BEAKER) (test txje=040) 0.02 ng/mL 0.00-0.03 Troponin I (TnI) levels [...] acidosis, acute neurological disease, and persistent tachyarrhythmia.POCT-GLUCOSE [id number] 17:53:00 Test Item Value Reference Range Comments POC-GLUCOSE METER (BEAKER) 132 mg/dL 70-110 TESTED AT [address] (test rhrz=5389) [place] [address] POCT-GLUCOSE [id number] 14:30:00 Test Item Value Reference Range Comments POC-GLUCOSE METER (BEAKER) 179 mg/dL 70-110 TESTED AT [address] (test dvmg=4257) [place] [id number] TROPONIN [id number] 12:32:00 Test Item Value Reference Range Comments TROPONIN I (BEAKER) (test kznx=159) 0.03 ng/mL 0.00-0.03 Troponin I (TnI) levels [...] failure, acidosis, acute neurological disease, and persistent tachyarrhythmia.[id number] 12:22:00 Test Item Value Reference Range Comments MAGNESIUM (BEAKER) (test lfch=907) 1.1 mg/dL 1.6-2.6 BASIC METABOLIC [id number] 12:22:00 Test Item Value Reference Range Comments SODIUM (BEAKER) (test 138 meq/L 136-145 otci=482) POTASSIUM (BEAKER) (test 4.1 meq/L 3.5-5.1 tore=682) CHLORIDE (BEAKER) (test 105 meq/L 98-107 kyfg=361) CO2 (BEAKER) (test 24 meq/L 22-29 gdko=310) BLOOD UREA NITROGEN 22 mg/dL 7-21 (BEAKER) (test yfnp=901) CREATININE (BEAKER) (test 1.44 mg/dL 0.57-1.25 zuhm=677) GLUCOSE RANDOM (BEAKER) 134 mg/dL 70-105 (test bwpt=529) CALCIUM (BEAKER) (test 9.4 mg/dL 8.4-10.2 bdkv=255) EGFR (BEAKER) (test 43 mL/min/1.73 sq m ESTIMATED GFR IS NOT jnkn=8144) ACCURATE CREATININE CLEARANCE IN PREDICTING GLOMERULAR FILTRATION RATE. ESTIMATED GFR IS NOT APPLICABLE FOR DIALYSIS PATIENTS. POCT-GLUCOSE [id number] 08:39:00 Test Item Value Reference Range Comments POC-GLUCOSE METER (BEAKER) 121 mg/dL 70-110 TESTED AT [facility] [address] [place] [address] (test cvdh=1587) [facility] [address] CBC W/PLT COUNT & AUTO [id number] 06:20:00 Test Item Value Reference Range Comments WHITE BLOOD CELL COUNT (BEAKER) (test ucuh=660) 4.9 K/ L 3.5-10.5 RED BLOOD CELL COUNT (BEAKER) (test bvkx=277) 3.28 M/ L 3.93-5.22 HEMOGLOBIN (BEAKER) (test zqgr=722) 10.6 GM/DL 11.2-15.7 HEMATOCRIT (BEAKER) (test zwon=972) 33.8 % 34.1-44.9 MEAN CORPUSCULAR VOLUME (BEAKER) (test wwed=342) 103.0 fL 79.4-94.8 MEAN CORPUSCULAR HEMOGLOBIN (BEAKER) (test 32.3 pg 25.6-32.2 pivn=686) MEAN CORPUSCULAR HEMOGLOBIN CONC (BEAKER) (test 31.4 GM/DL 32.2-35.5 wjql=122) RED CELL DISTRIBUTION WIDTH (BEAKER) (test 14.5 % 11.7-14.4 uzge=363) PLATELET COUNT (BEAKER) (test jzgv=541) 232 K/CU MM 150-450 MEAN PLATELET VOLUME (BEAKER) (test hxpd=925) 11.9 fL 9.4-12.3 NUCLEATED RED BLOOD CELLS (BEAKER) (test 0 /100 WBC 0-0 wfgg=994) NEUTROPHILS RELATIVE PERCENT (BEAKER) (test 56 % gjlh=618) LYMPHOCYTES RELATIVE PERCENT (BEAKER) (test 32 % rotg=777) MONOCYTES RELATIVE PERCENT (BEAKER) (test 8 % deeo=554) EOSINOPHILS RELATIVE PERCENT (BEAKER) (test 3 % cblk=386) BASOPHILS RELATIVE PERCENT (BEAKER) (test 1 % vtid=496) NEUTROPHILS ABSOLUTE COUNT (BEAKER) (test 2.76 K/ L 1.56-6.13 rvxf=834) LYMPHOCYTES ABSOLUTE COUNT (BEAKER) (test 1.57 K/ L 1.18-3.74 wrcx=903) MONOCYTES ABSOLUTE COUNT (BEAKER) (test 0.39 K/ L 0.24-0.36 kwba=072) EOSINOPHILS ABSOLUTE COUNT (BEAKER) (test 0.13 K/ L 0.04-0.36 gpmh=779) BASOPHILS ABSOLUTE COUNT (BEAKER) (test 0.04 K/ L 0.01-0.08 junn=885) IMMATURE GRANULOCYTES-RELATIVE PERCENT (BEAKER) 1 % 0-1 (test plhs=7530) POCT-GLUCOSE [id number] 23:04:00 Test Item Value Reference Range Comments POC-GLUCOSE METER (BEAKER) 106 mg/dL 70-110 TESTED AT [address] (test zdls=9206) [facility] [id number] POCT-GLUCOSE [id number] 19:31:00 Test Item Value Reference Range Comments POC-GLUCOSE METER (BEAKER) 142 mg/dL 70-110 TESTED AT [address] (test madb=7044) [facility] [address] POCT-GLUCOSE [id number] 12:27:00 Test Item Value Reference Range Comments POC-GLUCOSE METER (BEAKER) 101 mg/dL 70-110 TESTED AT [address] (test vwba=5336) [facility] [address] POCT-GLUCOSE [id number] 09:34:00 Test Item Value Reference Range Comments POC-GLUCOSE METER (BEAKER) 126 mg/dL 70-110 TESTED AT [place] [id number] [facility] (test zvaa=4548) [facility] [address] POCT-GLUCOSE [id number] 07:54:00 Test Item Value Reference Range Comments POC-GLUCOSE METER (BEAKER) 101 mg/dL 70-110 TESTED AT [place] [id number] [facility] (test hotp=5565) [facility] [address] BASIC METABOLIC [id number] 05:55:00 Test Item Value Reference Range Comments SODIUM (BEAKER) (test 139 meq/L 136-145 ckzz=106) POTASSIUM (BEAKER) (test 4.2 meq/L 3.5-5.1 bhou=052) CHLORIDE (BEAKER) (test 105 meq/L 98-107 oukp=135) CO2 (BEAKER) (test 25 meq/L 22-29 voiv=131) BLOOD UREA NITROGEN 17 mg/dL 7-21 (BEAKER) (test lwco=873) CREATININE (BEAKER) (test 1.08 mg/dL 0.57-1.25 nxzx=619) GLUCOSE RANDOM (BEAKER) 85 mg/dL 70-105 (test vqfb=234) CALCIUM (BEAKER) (test 9.3 mg/dL 8.4-10.2 jrht=165) EGFR (BEAKER) (test 59 mL/min/1.73 sq m ESTIMATED GFR IS NOT irkl=5003) ACCURATE CREATININE CLEARANCE IN PREDICTING GLOMERULAR FILTRATION RATE. ESTIMATED GFR IS NOT APPLICABLE FOR DIALYSIS PATIENTS. CBC W/PLT COUNT & AUTO [id number] 05:06:00 Test Item Value Reference Range Comments WHITE BLOOD CELL COUNT (BEAKER) (test qecp=656) 4.5 K/ L 3.5-10.5 RED BLOOD CELL COUNT (BEAKER) (test frss=007) 3.42 M/ L 3.93-5.22 HEMOGLOBIN (BEAKER) (test qimn=062) 11.1 GM/DL 11.2-15.7 HEMATOCRIT (BEAKER) (test ijbz=303) 35.2 % 34.1-44.9 MEAN CORPUSCULAR VOLUME (BEAKER) (test ffvx=490) 102.9 fL 79.4-94.8 MEAN CORPUSCULAR HEMOGLOBIN (BEAKER) (test 32.5 pg 25.6-32.2 bayt=121) MEAN CORPUSCULAR HEMOGLOBIN CONC (BEAKER) (test 31.5 GM/DL 32.2-35.5 qjbu=399) RED CELL DISTRIBUTION WIDTH (BEAKER) (test 14.6 % 11.7-14.4 awzf=044) PLATELET COUNT (BEAKER) (test roew=122) 258 K/CU MM 150-450 MEAN PLATELET VOLUME (BEAKER) (test kyeb=215) 11.7 fL 9.4-12.3 NUCLEATED RED BLOOD CELLS (BEAKER) (test 0 /100 WBC 0-0 rjld=280) NEUTROPHILS RELATIVE PERCENT (BEAKER) (test 62 % gfid=879) LYMPHOCYTES RELATIVE PERCENT (BEAKER) (test 26 % fqlj=042) MONOCYTES RELATIVE PERCENT (BEAKER) (test 7 % lafo=580) EOSINOPHILS RELATIVE PERCENT (BEAKER) (test 3 % zlmb=662) BASOPHILS RELATIVE PERCENT (BEAKER) (test 0 % mboz=039) NEUTROPHILS ABSOLUTE COUNT (BEAKER) (test 2.77 K/ L 1.56-6.13 etmj=041) LYMPHOCYTES ABSOLUTE COUNT (BEAKER) (test 1.17 K/ L 1.18-3.74 hhwo=133) MONOCYTES ABSOLUTE COUNT (BEAKER) (test 0.33 K/ L 0.24-0.36 xryl=603) EOSINOPHILS ABSOLUTE COUNT (BEAKER) (test 0.15 K/ L 0.04-0.36 eigz=103) BASOPHILS ABSOLUTE COUNT (BEAKER) (test 0.02 K/ L 0.01-0.08 etoa=122) IMMATURE GRANULOCYTES-RELATIVE PERCENT (BEAKER) 1 % 0-1 (test wqjn=5129) POCT-GLUCOSE [id number] 23:07:00 Test Item Value Reference Range Comments POC-GLUCOSE METER (BEAKER) 102 mg/dL 70-110 TESTED AT [address] (test hmry=1242) [facility] [address] POCT-GLUCOSE [id number] 17:29:00 Test Item Value Reference Range Comments POC-GLUCOSE METER (BEAKER) 114 mg/dL 70-110 TESTED AT [address] (test vhrp=8291) [facility] [address] POCT-GLUCOSE [id number] 12:02:00 Test Item Value Reference Range Comments POC-GLUCOSE METER (BEAKER) 146 mg/dL 70-110 TESTED AT [address] (test lgqu=0771) [facility] [address] POCT-GLUCOSE [id number] 08:14:00 Test Item Value Reference Range Comments POC-GLUCOSE METER (BEAKER) 101 mg/dL 70-110 TESTED AT [address] (test ocpg=7540) [facility] [address] POCT-GLUCOSE [id number] 23:17:00 Test Item Value Reference Range Comments POC-GLUCOSE METER (BEAKER) 112 mg/dL 70-110 TESTED AT [address] (test wlxm=0504) [facility] [address] POCT-GLUCOSE [id number] 17:06:00 Test Item Value Reference Range Comments POC-GLUCOSE METER (BEAKER) 114 mg/dL 70-110 TESTED AT [address] (test duem=4090) [facility] [address] POCT-GLUCOSE [id number] 13:08:00 Test Item Value Reference Range Comments POC-GLUCOSE METER (BEAKER) 110 mg/dL 70-110 TESTED AT [address] (test ieos=5177) [facility] [address] POCT-GLUCOSE [id number] 08:26:00 Test Item Value Reference Range Comments POC-GLUCOSE METER (BEAKER) 151 mg/dL 70-110 TESTED AT [address] (test exhp=6163) [facility] [address] POCT-GLUCOSE [id number] 23:22:00 Test Item Value Reference Range Comments POC-GLUCOSE METER (BEAKER) 116 mg/dL 70-110 TESTED AT [address] (test tstv=2297) [facility] [address] POCT-GLUCOSE [id number] 19:01:00 Test Item Value Reference Range Comments POC-GLUCOSE METER (BEAKER) 145 mg/dL 70-110 TESTED AT [address] (test jihn=5783) [facility] [address] POCT-GLUCOSE [id number] 13:42:00 Test Item Value Reference Range Comments POC-GLUCOSE METER (BEAKER) 119 mg/dL 70-110 TESTED AT [address] (test dfgb=7909) [facility] [address] TISSUE [id number] 12:34:00Surgical Pathology Report Case: [id number] Authorizing Provider: Chio Frey, Collected: 11/28/2018900 OrderingLocation: [facility] Received: 2018 1029 PERIOPERATIVE SERVICES Pathologist: Reese Soares MD Specimen: Plaque, Right Carotid ARTERY, RIGHT CAROTID, ENDARTERECTOMY:CALCIFIC ATHEROSCLEROTIC PLAQUE Signing Pathologist Direct Phone Line: [phone] signed by Reese Soares MD on 2018 at 12:34 [id number]; [id number] stenosis Right carotid plaque Specimen is received in saline labeled with the patient's information and labeled "right carotid plaque" and consists of three irregular fragments of calcified azar-red tissue measuring 2.5 x 2 x 0.3 cm in aggregate. Applied Psychology Teacher sections are submitted in A1 for decalcification.CG/ew PERFORMEDPOCT-GLUCOSE [id number] 10:06:00 Test Item Value Reference Range Comments POC-GLUCOSE METER (BEAKER) 137 mg/dL 70-110 TESTED AT [address] (test sadh=0184) [facility] [address] C. DIFFICILE GDH [id number] 09:08:00 Test Item Value Reference Range Comments CDT TOXIN (test Negative Negative tiqc=[id number]) CDT GDH ANTIGEN (test Positive Negative C. difficile present but toxin ehqt=[id number]) not detected. Indicates colonization with non-toxigenic strain [...] of kit performance was done by the [facility] Microbiology Lab prior to clinical use.BASIC METABOLIC [id number] 07:16:00 Test Item Value Reference Range Comments SODIUM (BEAKER) (test 141 meq/L 136-145 ngob=895) POTASSIUM (BEAKER) (test 4.1 meq/L 3.5-5.1 bkjz=211) CHLORIDE (BEAKER) (test 109 meq/L 98-107 lwwu=564) CO2 (BEAKER) (test 24 meq/L 22-29 mfpe=253) BLOOD UREA NITROGEN 15 mg/dL 7-21 (BEAKER) (test jxtg=518) CREATININE (BEAKER) (test 0.95 mg/dL 0.57-1.25 emgd=428) GLUCOSE RANDOM (BEAKER) 105 mg/dL 70-105 (test uddt=220) CALCIUM (BEAKER) (test 9.3 mg/dL 8.4-10.2 pydd=401) EGFR (BEAKER) (test 69 mL/min/1.73 sq m ESTIMATED GFR IS NOT guii=8790) ACCURATE CREATININE CLEARANCE IN PREDICTING GLOMERULAR FILTRATION RATE. ESTIMATED GFR IS NOT APPLICABLE FOR DIALYSIS PATIENTS. CBC (HEMOGRAM ONLY)2018-12-05 06:56:00 Test Item Value Reference Range Comments WHITE BLOOD CELL COUNT (BEAKER) (test ojxn=165) 6.9 K/ L 3.5-10.5 RED BLOOD CELL COUNT (BEAKER) (test wzdd=442) 3.26 M/ L 3.93-5.22 HEMOGLOBIN (BEAKER) (test dcfb=763) 10.7 GM/DL 11.2-15.7 HEMATOCRIT (BEAKER) (test bntg=105) 33.4 % 34.1-44.9 MEAN CORPUSCULAR VOLUME (BEAKER) (test jtwo=140) 102.5 fL 79.4-94.8 MEAN CORPUSCULAR HEMOGLOBIN (BEAKER) (test 32.8 pg 25.6-32.2 gtmc=230) MEAN CORPUSCULAR HEMOGLOBIN CONC (BEAKER) (test 32.0 GM/DL 32.2-35.5 qdls=459) RED CELL DISTRIBUTION WIDTH (BEAKER) (test 14.2 % 11.7-14.4 iltv=052) PLATELET COUNT (BEAKER) (test gycy=206) 289 K/CU MM 150-450 MEAN PLATELET VOLUME (BEAKER) (test phkk=685) 11.2 fL 9.4-12.3 NUCLEATED RED BLOOD CELLS (BEAKER) (test 0 /100 WBC 0-0 dkee=431) POCT-GLUCOSE [id number] 22:15:00 Test Item Value Reference Range Comments POC-GLUCOSE METER (BEAKER) 112 mg/dL 70-110 TESTED AT [address] (test fhah=8833) [facility] [address] POCT-GLUCOSE [id number] 18:17:00 Test Item Value Reference Range Comments POC-GLUCOSE METER (BEAKER) 149 mg/dL 70-110 TESTED AT [address] (test ziay=1992) [facility] [address] POCT-GLUCOSE [id number] 13:17:00 Test Item Value Reference Range Comments POC-GLUCOSE METER (BEAKER) 160 mg/dL 70-110 TESTED AT [address] (test ihvz=4421) [facility] [address] POCT-GLUCOSE [id number] 08:01:00 Test Item Value Reference Range Comments POC-GLUCOSE METER (BEAKER) 110 mg/dL 70-110 TESTED AT [address] (test lzgq=5098) [place] [id number] 05:54:00 Test Item Value Reference Range Comments MAGNESIUM (BEAKER) (test 1.9 mg/dL 1.6-2.6 Specimen slightly hemolyzed zkay=050) BASIC METABOLIC [id number] 05:54:00 Test Item Value Reference Range Comments SODIUM (BEAKER) (test 141 meq/L 136-145 lrge=460) POTASSIUM (BEAKER) (test 4.4 meq/L 3.5-5.1 Specimen slightly onjc=066) hemolyzed CHLORIDE (BEAKER) (test 109 meq/L 98-107 vavs=346) CO2 (BEAKER) (test 23 meq/L 22-29 qtre=626) BLOOD UREA NITROGEN 18 mg/dL 7-21 (BEAKER) (test rmyu=607) CREATININE (BEAKER) (test 0.91 mg/dL 0.57-1.25 Specimen slightly fxum=089) hemolyzed GLUCOSE RANDOM (BEAKER) 87 mg/dL 70-105 (test ohyt=107) CALCIUM (BEAKER) (test 9.5 mg/dL 8.4-10.2 pvcs=078) EGFR (BEAKER) (test 72 mL/min/1.73 sq m ESTIMATED GFR IS NOT vsmm=0403) ACCURATE CREATININE CLEARANCE IN PREDICTING GLOMERULAR FILTRATION RATE. ESTIMATED GFR IS NOT APPLICABLE FOR DIALYSIS PATIENTS. CBC (HEMOGRAM ONLY)2018-12-04 05:42:00 Test Item Value Reference Range Comments WHITE BLOOD CELL COUNT (BEAKER) (test enwc=937) 6.2 K/ L 3.5-10.5 RED BLOOD CELL COUNT (BEAKER) (test ytiy=147) 3.39 M/ L 3.93-5.22 HEMOGLOBIN (BEAKER) (test cdcp=600) 11.2 GM/DL 11.2-15.7 HEMATOCRIT (BEAKER) (test xkvq=725) 34.9 % 34.1-44.9 MEAN CORPUSCULAR VOLUME (BEAKER) (test kgdz=959) 102.9 fL 79.4-94.8 MEAN CORPUSCULAR HEMOGLOBIN (BEAKER) (test 33.0 pg 25.6-32.2 fytd=667) MEAN CORPUSCULAR HEMOGLOBIN CONC (BEAKER) (test 32.1 GM/DL 32.2-35.5 hpfs=282) RED CELL DISTRIBUTION WIDTH (BEAKER) (test 14.4 % 11.7-14.4 qgdv=042) PLATELET COUNT (BEAKER) (test xcrc=706) 299 K/CU MM 150-450 MEAN PLATELET VOLUME (BEAKER) (test mnre=848) 11.5 fL 9.4-12.3 NUCLEATED RED BLOOD CELLS (BEAKER) (test 0 /100 WBC 0-0 fqoq=308) POCT-GLUCOSE [id number] 22:44:00 Test Item Value Reference Range Comments POC-GLUCOSE METER (BEAKER) 91 mg/dL 70-110 TESTED AT [address] (test klik=6545) [facility] [address] POCT-GLUCOSE [id number] 17:10:00 Test Item Value Reference Range Comments POC-GLUCOSE METER (BEAKER) 151 mg/dL 70-110 TESTED AT [address] (test ozzm=5604) [facility] [address] POCT-GLUCOSE [id number] 12:46:00 Test Item Value Reference Range Comments POC-GLUCOSE METER (BEAKER) 166 mg/dL 70-110 TESTED AT [address] (test vyor=3608) [facility] [address] POCT-GLUCOSE [id number] 08:21:00 Test Item Value Reference Range Comments POC-GLUCOSE METER (BEAKER) 147 mg/dL 70-110 TESTED AT [facility] [address] (test xxas=9275) [facility] [address] CBC (HEMOGRAM ONLY)2018-12-03 07:53:00 Test Item Value Reference Range Comments WHITE BLOOD CELL COUNT (BEAKER) (test yzur=316) 6.1 K/ L 3.5-10.5 RED BLOOD CELL COUNT (BEAKER) (test wtnp=998) 3.30 M/ L 3.93-5.22 HEMOGLOBIN (BEAKER) (test uxoa=668) 10.7 GM/DL 11.2-15.7 HEMATOCRIT (BEAKER) (test rsdp=858) 33.6 % 34.1-44.9 MEAN CORPUSCULAR VOLUME (BEAKER) (test xxos=898) 101.8 fL 79.4-94.8 MEAN CORPUSCULAR HEMOGLOBIN (BEAKER) (test 32.4 pg 25.6-32.2 aouw=460) MEAN CORPUSCULAR HEMOGLOBIN CONC (BEAKER) (test 31.8 GM/DL 32.2-35.5 gbvz=219) RED CELL DISTRIBUTION WIDTH (BEAKER) (test 14.0 % 11.7-14.4 qedo=100) PLATELET COUNT (BEAKER) (test mqfw=267) 252 K/CU MM 150-450 MEAN PLATELET VOLUME (BEAKER) (test swpe=080) 11.9 fL 9.4-12.3 NUCLEATED RED BLOOD CELLS (BEAKER) (test 0 /100 WBC 0-0 bejx=424) [id number] 06:48:00 Test Item Value Reference Range Comments MAGNESIUM (BEAKER) (test snro=863) 1.5 mg/dL 1.6-2.6 BASIC METABOLIC [id number] 06:48:00 Test Item Value Reference Range Comments SODIUM (BEAKER) (test 142 meq/L 136-145 vwow=180) POTASSIUM (BEAKER) (test 4.1 meq/L 3.5-5.1 xkzx=580) CHLORIDE (BEAKER) (test 108 meq/L 98-107 kmwd=001) CO2 (BEAKER) (test 25 meq/L 22-29 vshw=481) BLOOD UREA NITROGEN 19 mg/dL 7-21 (BEAKER) (test bgjy=444) CREATININE (BEAKER) (test 0.95 mg/dL 0.57-1.25 vxcj=294) GLUCOSE RANDOM (BEAKER) 119 mg/dL 70-105 (test dnsu=059) CALCIUM (BEAKER) (test 9.1 mg/dL 8.4-10.2 xbrx=038) EGFR (BEAKER) (test 69 mL/min/1.73 sq m ESTIMATED GFR IS NOT sxbq=5514) ACCURATE CREATININE CLEARANCE IN PREDICTING GLOMERULAR FILTRATION RATE. ESTIMATED GFR IS NOT APPLICABLE FOR DIALYSIS PATIENTS. POCT-GLUCOSE [id number] 23:20:00 Test Item Value Reference Range Comments POC-GLUCOSE METER (BEAKER) 125 mg/dL 70-110 TESTED AT [address] (test usqf=1893) [place] [id number] POCT-GLUCOSE [id number] 17:33:00 Test Item Value Reference Range Comments POC-GLUCOSE METER (BEAKER) 136 mg/dL 70-110 TESTED AT [address] (test osqe=7954) [place] [address] POCT-GLUCOSE [id number] 11:43:00 Test Item Value Reference Range Comments POC-GLUCOSE METER (BEAKER) 168 mg/dL 70-110 TESTED AT [address] (test bbcb=4914) [place] [id number] POCT-GLUCOSE [id number] 08:52:00 Test Item Value Reference Range Comments POC-GLUCOSE METER (BEAKER) 165 mg/dL 70-110 TESTED AT [address] (test wofs=4347) [place] [address] [id number] 05:18:00 Test Item Value Reference Range Comments MAGNESIUM (BEAKER) (test kkjk=857) 1.8 mg/dL 1.6-2.6 BASIC METABOLIC [id number] 05:18:00 Test Item Value Reference Range Comments SODIUM (BEAKER) (test 139 meq/L 136-145 xnyp=100) POTASSIUM (BEAKER) (test 4.3 meq/L 3.5-5.1 lejj=417) CHLORIDE (BEAKER) (test 107 meq/L 98-107 xrhv=442) CO2 (BEAKER) (test 24 meq/L 22-29 inhy=163) BLOOD UREA NITROGEN 18 mg/dL 7-21 (BEAKER) (test tidi=503) CREATININE (BEAKER) (test 0.98 mg/dL 0.57-1.25 kpml=396) GLUCOSE RANDOM (BEAKER) 138 mg/dL 70-105 (test vitm=358) CALCIUM (BEAKER) (test 8.8 mg/dL 8.4-10.2 jhet=401) EGFR (BEAKER) (test 66 mL/min/1.73 sq m ESTIMATED GFR IS NOT wegl=0446) ACCURATE CREATININE CLEARANCE IN PREDICTING GLOMERULAR FILTRATION RATE. ESTIMATED GFR IS NOT APPLICABLE FOR DIALYSIS PATIENTS. CBC (HEMOGRAM ONLY)2018-12-02 05:06:00 Test Item Value Reference Range Comments WHITE BLOOD CELL COUNT (BEAKER) (test oitp=869) 5.9 K/ L 3.5-10.5 RED BLOOD CELL COUNT (BEAKER) (test xnph=091) 3.14 M/ L 3.93-5.22 HEMOGLOBIN (BEAKER) (test oueq=216) 10.2 GM/DL 11.2-15.7 HEMATOCRIT (BEAKER) (test ndux=931) 32.6 % 34.1-44.9 MEAN CORPUSCULAR VOLUME (BEAKER) (test qumt=706) 103.8 fL 79.4-94.8 MEAN CORPUSCULAR HEMOGLOBIN (BEAKER) (test 32.5 pg 25.6-32.2 piae=777) MEAN CORPUSCULAR HEMOGLOBIN CONC (BEAKER) (test 31.3 GM/DL 32.2-35.5 exnf=438) RED CELL DISTRIBUTION WIDTH (BEAKER) (test 14.3 % 11.7-14.4 nbtw=348) PLATELET COUNT (BEAKER) (test kwbv=061) 206 K/CU MM 150-450 MEAN PLATELET VOLUME (BEAKER) (test ipus=317) 11.8 fL 9.4-12.3 NUCLEATED RED BLOOD CELLS (BEAKER) (test 0 /100 WBC 0-0 eyyp=239) POCT-GLUCOSE [id number] 22:03:00 Test Item Value Reference Range Comments POC-GLUCOSE METER (BEAKER) 206 mg/dL 70-110 TESTED AT [facility] [address] [facility] (test wwpy=6814) [facility] [address] POCT-GLUCOSE [id number] 21:51:00 Test Item Value Reference Range Comments POC-GLUCOSE METER (BEAKER) 185 mg/dL 70-110 TESTED AT [facility] [address] [place] [address] (test xwge=7522) [facility] [address] POCT-GLUCOSE [id number] 12:51:00 Test Item Value Reference Range Comments POC-GLUCOSE METER (BEAKER) 180 mg/dL 70-110 TESTED AT [address] (test fgpm=8657) [facility] [address] POCT-GLUCOSE [id number] 09:51:00 Test Item Value Reference Range Comments POC-GLUCOSE METER (BEAKER) 171 mg/dL 70-110 TESTED AT [address] (test fmcc=9471) [facility] [address] [id number] 06:42:00 Test Item Value Reference Range Comments MAGNESIUM (BEAKER) (test zose=854) 1.6 mg/dL 1.6-2.6 BASIC METABOLIC [id number] 06:42:00 Test Item Value Reference Range Comments SODIUM (BEAKER) (test 140 meq/L 136-145 jcyg=260) POTASSIUM (BEAKER) (test 3.9 meq/L 3.5-5.1 rmrf=460) CHLORIDE (BEAKER) (test 108 meq/L 98-107 gacy=561) CO2 (BEAKER) (test 25 meq/L 22-29 wqna=309) BLOOD UREA NITROGEN 12 mg/dL 7-21 (BEAKER) (test rxly=423) CREATININE (BEAKER) (test 0.91 mg/dL 0.57-1.25 hvgi=236) GLUCOSE RANDOM (BEAKER) 133 mg/dL 70-105 (test kinv=798) CALCIUM (BEAKER) (test 9.2 mg/dL 8.4-10.2 sufo=199) EGFR (BEAKER) (test 72 mL/min/1.73 sq m ESTIMATED GFR IS NOT bthp=9261) ACCURATE CREATININE CLEARANCE IN PREDICTING GLOMERULAR FILTRATION RATE. ESTIMATED GFR IS NOT APPLICABLE FOR DIALYSIS PATIENTS. HEPATIC FUNCTION [id number] 06:42:00 Test Item Value Reference Range Comments TOTAL PROTEIN (BEAKER) (test aiqc=040) 6.6 gm/dL 6.0-8.3 ALBUMIN (BEAKER) (test tdog=9095) 3.2 g/dL 3.5-5.0 BILIRUBIN TOTAL (BEAKER) (test zhvs=256) 0.6 mg/dL 0.2-1.2 BILIRUBIN DIRECT (BEAKER) (test ltka=164) 0.3 mg/dL 0.1-0.5 ALKALINE PHOSPHATASE (BEAKER) (test qlbm=716) 56 U/L 40-150 AST (SGOT) (BEAKER) (test bzmj=790) 35 U/L 5-34 ALT (SGPT) (BEAKER) (test pwhf=673) 32 U/L 6-55 CBC W/PLT COUNT & AUTO [id number] 05:25:00 Test Item Value Reference Range Comments WHITE BLOOD CELL COUNT (BEAKER) (test cjyk=382) 6.0 K/ L 3.5-10.5 RED BLOOD CELL COUNT (BEAKER) (test qvlt=375) 2.96 M/ L 3.93-5.22 HEMOGLOBIN (BEAKER) (test oank=541) 9.7 GM/DL 11.2-15.7 HEMATOCRIT (BEAKER) (test krgg=485) 30.9 % 34.1-44.9 MEAN CORPUSCULAR VOLUME (BEAKER) (test bnjg=785) 104.4 fL 79.4-94.8 MEAN CORPUSCULAR HEMOGLOBIN (BEAKER) (test 32.8 pg 25.6-32.2 nery=676) MEAN CORPUSCULAR HEMOGLOBIN CONC (BEAKER) (test 31.4 GM/DL 32.2-35.5 ttud=515) RED CELL DISTRIBUTION WIDTH (BEAKER) (test 14.3 % 11.7-14.4 bdyp=751) PLATELET COUNT (BEAKER) (test nqpk=139) 185 K/CU MM 150-450 MEAN PLATELET VOLUME (BEAKER) (test aden=102) 12.3 fL 9.4-12.3 NUCLEATED RED BLOOD CELLS (BEAKER) (test 0 /100 WBC 0-0 ielq=884) NEUTROPHILS RELATIVE PERCENT (BEAKER) (test 61 % legn=163) LYMPHOCYTES RELATIVE PERCENT (BEAKER) (test 26 % rzfz=084) MONOCYTES RELATIVE PERCENT (BEAKER) (test 8 % ziwj=693) EOSINOPHILS RELATIVE PERCENT (BEAKER) (test 3 % dmyl=424) BASOPHILS RELATIVE PERCENT (BEAKER) (test 1 % szum=418) NEUTROPHILS ABSOLUTE COUNT (BEAKER) (test 3.61 K/ L 1.56-6.13 pkwi=051) LYMPHOCYTES ABSOLUTE COUNT (BEAKER) (test 1.57 K/ L 1.18-3.74 qtfk=625) MONOCYTES ABSOLUTE COUNT (BEAKER) (test 0.49 K/ L 0.24-0.36 idnb=296) EOSINOPHILS ABSOLUTE COUNT (BEAKER) (test 0.17 K/ L 0.04-0.36 rooy=406) BASOPHILS ABSOLUTE COUNT (BEAKER) (test 0.04 K/ L 0.01-0.08 ndap=677) IMMATURE GRANULOCYTES-RELATIVE PERCENT (BEAKER) 2 % 0-1 (test waqa=1615) POCT-GLUCOSE [id number] 21:31:00 Test Item Value Reference Range Comments POC-GLUCOSE METER (BEAKER) 143 mg/dL 70-110 TESTED AT [address] (test xvvp=5367) [place] [address] POCT-GLUCOSE [id number] 18:26:00 Test Item Value Reference Range Comments POC-GLUCOSE METER (BEAKER) 252 mg/dL 70-110 TESTED AT [address] (test rpsw=2229) [place] [address] POCT-GLUCOSE [id number] 12:40:00 Test Item Value Reference Range Comments POC-GLUCOSE METER (BEAKER) 161 mg/dL 70-110 TESTED AT [address] (test keek=6154) [place] [address] HEMOGLOBIN [id number] 11:08:00 Test Item Value Reference Range Comments HEMOGLOBIN A1C (BEAKER) (test tyzh=454) 7.2 % 4.3-6.1 POCT-GLUCOSE [id number] 08:17:00 Test Item Value Reference Range Comments POC-GLUCOSE METER (BEAKER) 162 mg/dL 70-110 TESTED AT [address] (test wjab=7353) [place] [address] POCT-GLUCOSE [id number] 07:48:00 Test Item Value Reference Range Comments POC-GLUCOSE METER (BEAKER) 158 mg/dL 70-110 TESTED AT [address] (test nvpz=2386) [place] [address] [id number] 06:55:00 Test Item Value Reference Range Comments MAGNESIUM (BEAKER) (test vcin=736) 1.4 mg/dL 1.6-2.6 BASIC METABOLIC [id number] 06:55:00 Test Item Value Reference Range Comments SODIUM (BEAKER) (test 140 meq/L 136-145 zxta=953) POTASSIUM (BEAKER) (test 3.9 meq/L 3.5-5.1 jisn=886) CHLORIDE (BEAKER) (test 107 meq/L 98-107 losx=739) CO2 (BEAKER) (test 24 meq/L 22-29 kqhk=247) BLOOD UREA NITROGEN 12 mg/dL 7-21 (BEAKER) (test gktv=680) CREATININE (BEAKER) (test 0.93 mg/dL 0.57-1.25 wdcf=056) GLUCOSE RANDOM (BEAKER) 143 mg/dL 70-105 (test hhnf=452) CALCIUM (BEAKER) (test 9.0 mg/dL 8.4-10.2 faos=647) EGFR (BEAKER) (test 70 mL/min/1.73 sq m ESTIMATED GFR IS NOT koel=7428) ACCURATE CREATININE CLEARANCE IN PREDICTING GLOMERULAR FILTRATION RATE. ESTIMATED GFR IS NOT APPLICABLE FOR DIALYSIS PATIENTS. LIPID [id number] 06:55:00 Test Item Value Reference Range Comments TRIGLYCERIDES (BEAKER) (test obam=835) 120 mg/dL CHOLESTEROL (BEAKER) (test kxfp=752) 123 mg/dL HDL CHOLESTEROL (BEAKER) (test ohzr=707) 21 mg/dL LDL CHOLESTEROL CALCULATED (BEAKER) (test 78 mg/dL dbyo=885) Triglyceride Reference Range: Low Risk <150 Borderline 150- 199 High Risk 200-499 Very High Risk >=500Cholesterol Reference Range: Low Risk <200 Borderline 200-239 High Risk > 240HDL Cholesterol Reference Range: Low Risk >=60 High Risk <40LDL Cholesterol Reference Range: Optimal <100 Near Optimal 100-129 Borderline 130-159 High 160-189 Very High >=190CBC W/PLT COUNT & AUTO [id number] 06:39:00 Test Item Value Reference Range Comments WHITE BLOOD CELL COUNT (BEAKER) (test ogfu=436) 6.1 K/ L 3.5-10.5 RED BLOOD CELL COUNT (BEAKER) (test afyw=399) 3.35 M/ L 3.93-5.22 HEMOGLOBIN (BEAKER) (test mbpp=742) 10.9 GM/DL 11.2-15.7 HEMATOCRIT (BEAKER) (test rqrn=300) 34.4 % 34.1-44.9 MEAN CORPUSCULAR VOLUME (BEAKER) (test deft=402) 102.7 fL 79.4-94.8 MEAN CORPUSCULAR HEMOGLOBIN (BEAKER) (test 32.5 pg 25.6-32.2 zizs=583) MEAN CORPUSCULAR HEMOGLOBIN CONC (BEAKER) (test 31.7 GM/DL 32.2-35.5 swph=784) RED CELL DISTRIBUTION WIDTH (BEAKER) (test 14.3 % 11.7-14.4 hnfe=878) PLATELET COUNT (BEAKER) (test ajzh=956) 182 K/CU MM 150-450 MEAN PLATELET VOLUME (BEAKER) (test jpoy=665) 12.9 fL 9.4-12.3 NUCLEATED RED BLOOD CELLS (BEAKER) (test 0 /100 WBC 0-0 ojto=095) NEUTROPHILS RELATIVE PERCENT (BEAKER) (test 70 % kjyn=890) LYMPHOCYTES RELATIVE PERCENT (BEAKER) (test 18 % insv=709) MONOCYTES RELATIVE PERCENT (BEAKER) (test 7 % pbyr=181) EOSINOPHILS RELATIVE PERCENT (BEAKER) (test 3 % pfkq=578) BASOPHILS RELATIVE PERCENT (BEAKER) (test 0 % ahft=386) NEUTROPHILS ABSOLUTE COUNT (BEAKER) (test 4.29 K/ L 1.56-6.13 ttnn=089) LYMPHOCYTES ABSOLUTE COUNT (BEAKER) (test 1.10 K/ L 1.18-3.74 pjuv=936) MONOCYTES ABSOLUTE COUNT (BEAKER) (test 0.44 K/ L 0.24-0.36 jovv=158) EOSINOPHILS ABSOLUTE COUNT (BEAKER) (test 0.18 K/ L 0.04-0.36 lapw=612) BASOPHILS ABSOLUTE COUNT (BEAKER) (test 0.02 K/ L 0.01-0.08 ojok=940) IMMATURE GRANULOCYTES-RELATIVE PERCENT (BEAKER) 2 % 0-1 (test jnnd=8371) POCT-GLUCOSE [id number] 21:50:00 Test Item Value Reference Range Comments POC-GLUCOSE METER (BEAKER) 185 mg/dL 70-110 TESTED AT [address] (test cnhh=3102) [facility] [address] POCT-GLUCOSE [id number] 17:26:00 Test Item Value Reference Range Comments POC-GLUCOSE METER (BEAKER) 201 mg/dL 70-110 TESTED AT [address] (test gbby=9746) [place] [id number] POCT-GLUCOSE [id number] 15:25:00 Test Item Value Reference Range Comments POC-GLUCOSE METER (BEAKER) 136 mg/dL 70-110 TESTED AT [address] (test swmm=3968) [place] [id number] POCT-GLUCOSE [id number] 13:38:00 Test Item Value Reference Range Comments POC-GLUCOSE METER (BEAKER) 136 mg/dL 70-110 TESTED AT [address] (test umzq=9658) [place] [id number] POCT-GLUCOSE [id number] 11:05:00 Test Item Value Reference Range Comments POC-GLUCOSE METER (BEAKER) 183 mg/dL 70-110 TESTED AT [address] (test kril=6643) [place] [address] [id number] 04:18:00 Test Item Value Reference Range Comments MAGNESIUM (BEAKER) (test ypis=295) 1.4 mg/dL 1.6-2.6 BASIC METABOLIC [id number] 04:18:00 Test Item Value Reference Range Comments SODIUM (BEAKER) (test 142 meq/L 136-145 tzgl=510) POTASSIUM (BEAKER) (test 3.6 meq/L 3.5-5.1 ldxe=788) CHLORIDE (BEAKER) (test 111 meq/L 98-107 ulbp=983) CO2 (BEAKER) (test 22 meq/L 22-29 czjl=322) BLOOD UREA NITROGEN 21 mg/dL 7-21 (BEAKER) (test vtjg=650) CREATININE (BEAKER) (test 0.95 mg/dL 0.57-1.25 nxhj=683) GLUCOSE RANDOM (BEAKER) 128 mg/dL 70-105 (test ynnz=655) CALCIUM (BEAKER) (test 8.6 mg/dL 8.4-10.2 ofbb=966) EGFR (BEAKER) (test 69 mL/min/1.73 sq m ESTIMATED GFR IS NOT erqz=5430) ACCURATE CREATININE CLEARANCE IN PREDICTING GLOMERULAR FILTRATION RATE. ESTIMATED GFR IS NOT APPLICABLE FOR DIALYSIS PATIENTS. CBC W/PLT COUNT & AUTO [id number] 03:47:00 Test Item Value Reference Range Comments WHITE BLOOD CELL COUNT (BEAKER) (test biqo=360) 6.1 K/ L 3.5-10.5 RED BLOOD CELL COUNT (BEAKER) (test lbxl=458) 2.88 M/ L 3.93-5.22 HEMOGLOBIN (BEAKER) (test ofvb=993) 9.6 GM/DL 11.2-15.7 HEMATOCRIT (BEAKER) (test vpdg=441) 29.2 % 34.1-44.9 MEAN CORPUSCULAR VOLUME (BEAKER) (test ognr=044) 101.4 fL 79.4-94.8 MEAN CORPUSCULAR HEMOGLOBIN (BEAKER) (test 33.3 pg 25.6-32.2 mkhi=275) MEAN CORPUSCULAR HEMOGLOBIN CONC (BEAKER) (test 32.9 GM/DL 32.2-35.5 pbpk=548) RED CELL DISTRIBUTION WIDTH (BEAKER) (test 14.0 % 11.7-14.4 eeyw=312) PLATELET COUNT (BEAKER) (test zxwu=756) 126 K/CU MM 150-450 MEAN PLATELET VOLUME (BEAKER) (test wbpr=170) 12.6 fL 9.4-12.3 NUCLEATED RED BLOOD CELLS (BEAKER) (test 0 /100 WBC 0-0 iptt=373) NEUTROPHILS RELATIVE PERCENT (BEAKER) (test 73 % coga=612) LYMPHOCYTES RELATIVE PERCENT (BEAKER) (test 15 % isca=802) MONOCYTES RELATIVE PERCENT (BEAKER) (test 8 % wwjg=705) EOSINOPHILS RELATIVE PERCENT (BEAKER) (test 2 % vpgo=661) BASOPHILS RELATIVE PERCENT (BEAKER) (test 0 % hvin=570) NEUTROPHILS ABSOLUTE COUNT (BEAKER) (test 4.44 K/ L 1.56-6.13 bxjb=999) LYMPHOCYTES ABSOLUTE COUNT (BEAKER) (test 0.90 K/ L 1.18-3.74 oxdy=088) MONOCYTES ABSOLUTE COUNT (BEAKER) (test 0.48 K/ L 0.24-0.36 rjyj=954) EOSINOPHILS ABSOLUTE COUNT (BEAKER) (test 0.14 K/ L 0.04-0.36 uuzv=592) BASOPHILS ABSOLUTE COUNT (BEAKER) (test 0.02 K/ L 0.01-0.08 nilw=659) IMMATURE GRANULOCYTES-RELATIVE PERCENT (BEAKER) 1 % 0-1 (test odwa=8872) BASIC METABOLIC [id number] 17:45:00 Test Item Value Reference Range Comments SODIUM (BEAKER) (test 141 meq/L 136-145 hfif=740) POTASSIUM (BEAKER) (test 3.9 meq/L 3.5-5.1 gunn=805) CHLORIDE (BEAKER) (test 110 meq/L 98-107 fdar=664) CO2 (BEAKER) (test 25 meq/L 22-29 qase=444) BLOOD UREA NITROGEN 28 mg/dL 7-21 (BEAKER) (test nsdd=497) CREATININE (BEAKER) (test 1.18 mg/dL 0.57-1.25 ivps=245) GLUCOSE RANDOM (BEAKER) 147 mg/dL 70-105 (test tccg=533) CALCIUM (BEAKER) (test 9.0 mg/dL 8.4-10.2 tvpi=825) EGFR (BEAKER) (test 54 mL/min/1.73 sq m ESTIMATED GFR IS NOT acoy=3298) ACCURATE CREATININE CLEARANCE IN PREDICTING GLOMERULAR FILTRATION RATE. ESTIMATED GFR IS NOT APPLICABLE FOR DIALYSIS PATIENTS. POCT-GLUCOSE [id number] 14:36:00 Test Item Value Reference Range Comments POC-GLUCOSE METER (BEAKER) 158 mg/dL 70-110 TESTED AT [facility] [address] [facility] (test hrus=5541) [facility] [address] [id number] 10:50:00 Test Item Value Reference Range Comments PHOSPHORUS (BEAKER) (test tpwi=237) 3.1 mg/dL 2.3-4.7 [id number] 10:50:00 Test Item Value Reference Range Comments MAGNESIUM (BEAKER) (test sfzy=477) 1.4 mg/dL 1.6-2.6 BASIC METABOLIC [id number] 10:50:00 Test Item Value Reference Range Comments SODIUM (BEAKER) (test 137 meq/L 136-145 zovc=601) POTASSIUM (BEAKER) (test 3.6 meq/L 3.5-5.1 ptad=026) CHLORIDE (BEAKER) (test 107 meq/L 98-107 trrm=308) CO2 (BEAKER) (test 18 meq/L 22-29 oadl=457) BLOOD UREA NITROGEN 36 mg/dL 7-21 (BEAKER) (test pkzw=313) CREATININE (BEAKER) (test 1.54 mg/dL 0.57-1.25 vvsq=831) GLUCOSE RANDOM (BEAKER) 139 mg/dL 70-105 (test crkp=848) CALCIUM (BEAKER) (test 8.7 mg/dL 8.4-10.2 degm=225) EGFR (BEAKER) (test 39 mL/min/1.73 sq m ESTIMATED GFR IS NOT lmww=1718) ACCURATE CREATININE CLEARANCE IN PREDICTING GLOMERULAR FILTRATION RATE. ESTIMATED GFR IS NOT APPLICABLE FOR DIALYSIS PATIENTS. LACTIC ACID, ARTERIAL, WHOLE [id number] 10:47:00 Test Item Value Reference Range Comments LACTATE BLOOD ARTERIAL (2) (BEAKER) (test 0.7 mmol/L 0.5-2.2 fapg=1413) BLOOD GAS, [id number] 10:36:00 Test Item Value Reference Range Comments PH ARTERIAL (BEAKER) (test wtyn=600) 7.41 7.35-7.45 PCO2 ARTERIAL (BEAKER) (test fvhj=196) 33 mmHg 35-45 PO2 ARTERIAL (BEAKER) (test rxnu=293) 157 mmHg 80-90 O2 SATURATION ARTERIAL (BEAKER) (test akeg=103) 99.1 % 96.0-97.0 HCO3 ARTERIAL (BEAKER) (test dqta=101) 20 mmol/L 21-29 BASE EXCESS ARTERIAL (BEAKER) (test knpt=694) -3.5 mmol/L -2.0-3.0 PATIENT TEMPERATURE (BEAKER) (test rwat=1589) 36.8 C FIO2 (BEAKER) (test oadb=9906) 32.0 % CALCIUM, [id number] 10:36:00 Test Item Value Reference Range Comments CALCIUM IONIZED (BEAKER) (test rvwm=708) 1.12 mmol/L 1.12-1.27 PH, BLOOD (BEAKER) (test auzj=9036) 7.41 CBC W/PLT COUNT & AUTO [id number] 10:32:00 Test Item Value Reference Range Comments WHITE BLOOD CELL COUNT (BEAKER) (test isyy=119) 8.9 K/ L 3.5-10.5 RED BLOOD CELL COUNT (BEAKER) (test clca=394) 3.38 M/ L 3.93-5.22 HEMOGLOBIN (BEAKER) (test xanu=814) 11.2 GM/DL 11.2-15.7 HEMATOCRIT (BEAKER) (test yozi=962) 34.3 % 34.1-44.9 MEAN CORPUSCULAR VOLUME (BEAKER) (test jcnt=408) 101.5 fL 79.4-94.8 MEAN CORPUSCULAR HEMOGLOBIN (BEAKER) (test 33.1 pg 25.6-32.2 qgve=437) MEAN CORPUSCULAR HEMOGLOBIN CONC (BEAKER) (test 32.7 GM/DL 32.2-35.5 nnwb=854) RED CELL DISTRIBUTION WIDTH (BEAKER) (test 14.4 % 11.7-14.4 moeg=471) PLATELET COUNT (BEAKER) (test taoi=267) 142 K/CU MM 150-450 MEAN PLATELET VOLUME (BEAKER) (test oync=857) 12.9 fL 9.4-12.3 NUCLEATED RED BLOOD CELLS (BEAKER) (test 0 /100 WBC 0-0 dgtu=091) NEUTROPHILS RELATIVE PERCENT (BEAKER) (test 77 % mgpv=361) LYMPHOCYTES RELATIVE PERCENT (BEAKER) (test 12 % rkls=961) MONOCYTES RELATIVE PERCENT (BEAKER) (test 8 % ndio=750) EOSINOPHILS RELATIVE PERCENT (BEAKER) (test 1 % negr=184) BASOPHILS RELATIVE PERCENT (BEAKER) (test 0 % zocu=188) NEUTROPHILS ABSOLUTE COUNT (BEAKER) (test 6.87 K/ L 1.56-6.13 tanj=237) LYMPHOCYTES ABSOLUTE COUNT (BEAKER) (test 1.10 K/ L 1.18-3.74 vebq=970) MONOCYTES ABSOLUTE COUNT (BEAKER) (test 0.69 K/ L 0.24-0.36 jhpo=861) EOSINOPHILS ABSOLUTE COUNT (BEAKER) (test 0.10 K/ L 0.04-0.36 pfgh=345) BASOPHILS ABSOLUTE COUNT (BEAKER) (test 0.03 K/ L 0.01-0.08 mwpv=531) IMMATURE GRANULOCYTES-RELATIVE PERCENT (BEAKER) 1 % 0-1 (test kxyv=9677) COMPREHENSIVE METABOLIC [id number] 07:28:00 Test Item Value Reference Range Comments TOTAL PROTEIN (BEAKER) 7.4 gm/dL 6.0-8.3 Specimen slightly (test nhav=973) hemolyzed ALBUMIN (BEAKER) (test 3.6 g/dL 3.5-5.0 Specimen slightly cxfq=2655) hemolyzed ALKALINE PHOSPHATASE 77 U/L 40-150 (BEAKER) (test mkqr=258) BILIRUBIN TOTAL (BEAKER) 0.8 mg/dL 0.2-1.2 Specimen slightly (test whkx=264) hemolyzed SODIUM (BEAKER) (test 140 meq/L 136-145 lkzu=706) POTASSIUM (BEAKER) (test 4.2 meq/L 3.5-5.1 Specimen slightly ksww=064) hemolyzed CHLORIDE (BEAKER) (test 106 meq/L 98-107 mkan=782) CO2 (BEAKER) (test 24 meq/L 22-29 lris=279) BLOOD UREA NITROGEN 41 mg/dL 7-21 (BEAKER) (test amom=957) CREATININE (BEAKER) (test 1.76 mg/dL 0.57-1.25 Specimen slightly kslp=502) hemolyzed GLUCOSE RANDOM (BEAKER) 98 mg/dL 70-105 (test agtd=152) CALCIUM (BEAKER) (test 9.9 mg/dL 8.4-10.2 jnxh=374) AST (SGOT) (BEAKER) (test 143 U/L 5-34 Specimen slightly lhfk=902) hemolyzed ALT (SGPT) (BEAKER) (test 112 U/L 6-55 Specimen slightly ehrx=422) hemolyzed EGFR (BEAKER) (test 34 mL/min/1.73 sq m ESTIMATED GFR IS NOT mads=8865) ACCURATE CREATININE CLEARANCE IN PREDICTING GLOMERULAR FILTRATION RATE. ESTIMATED GFR IS NOT APPLICABLE FOR DIALYSIS PATIENTS. RAD, CHEST, 1 VIEW, NON [id number] 07:18:00Reason for exam:->CV pre- opShould this be performed at the bedside?->YesFINAL REPORT INDICATION: CV pre-op COMPARISON: None TECHNIQUE: Single frontalview of the chest. FINDINGS: Lungs and pleura: Clear lungs. No effusion.Heart and mediastinum: Normal heart size. Unremarkable mediastinal contours.Osseous structures: No acute abnormality.Other: None. IMPRESSION: No acute intrathoracic abnormality. Signed: JR Victor M, Juan Jose Skinner Verified Date/Time: 11/28/2018 07:18:00 Reading Location: [facility] Radiology Reading Room [id number] 07:13:00 Test Item Value Reference Range Comments PARTIAL THROMBOPLASTIN TIME (BEAKER) (test 38.8 seconds 22.5-36.0 nvvd=191) PROTHROMBIN TIME/[id number] 07:12:00 Test Item Value Reference Range Comments PROTIME (BEAKER) (test jdbc=452) 14.3 seconds 11.7-14.7 INR (BEAKER) (test bdns=449) 1.1 <=5.9 RECOMMENDED COUMADIN/WARFARIN INR THERAPY RANGESSTANDARD DOSE: 2.0 - 3.0 Includes: PROPHYLAXIS forvenous thrombosis, systemic embolization; TREATMENT for venous thrombosis and/or pulmonary embolus.HIGH RISK: Target INR is 2.5-3.5 for patients with mechanical heart valves.CBC W/PLT COUNT & AUTO [id number] 07:04:00 Test Item Value Reference Range Comments WHITE BLOOD CELL COUNT (BEAKER) (test vzfs=791) 6.0 K/ L 3.5-10.5 RED BLOOD CELL COUNT (BEAKER) (test uufu=283) 3.34 M/ L 3.93-5.22 HEMOGLOBIN (BEAKER) (test pbgz=643) 11.2 GM/DL 11.2-15.7 HEMATOCRIT (BEAKER) (test nocp=686) 34.2 % 34.1-44.9 MEAN CORPUSCULAR VOLUME (BEAKER) (test xkhn=360) 102.4 fL 79.4-94.8 MEAN CORPUSCULAR HEMOGLOBIN (BEAKER) (test 33.5 pg 25.6-32.2 ulkk=789) MEAN CORPUSCULAR HEMOGLOBIN CONC (BEAKER) (test 32.7 GM/DL 32.2-35.5 eokj=652) RED CELL DISTRIBUTION WIDTH (BEAKER) (test 14.6 % 11.7-14.4 pcde=593) PLATELET COUNT (BEAKER) (test rcre=609) 151 K/CU MM 150-450 MEAN PLATELET VOLUME (BEAKER) (test qvba=024) 13.5 fL 9.4-12.3 NUCLEATED RED BLOOD CELLS (BEAKER) (test 0 /100 WBC 0-0 gynr=103) NEUTROPHILS RELATIVE PERCENT (BEAKER) (test 68 % eiol=343) LYMPHOCYTES RELATIVE PERCENT (BEAKER) (test 19 % vxmo=523) MONOCYTES RELATIVE PERCENT (BEAKER) (test 10 % agey=695) EOSINOPHILS RELATIVE PERCENT (BEAKER) (test 2 % kfgq=867) BASOPHILS RELATIVE PERCENT (BEAKER) (test 0 % zmqu=402) NEUTROPHILS ABSOLUTE COUNT (BEAKER) (test 4.08 K/ L 1.56-6.13 hanz=967) LYMPHOCYTES ABSOLUTE COUNT (BEAKER) (test 1.13 K/ L 1.18-3.74 inkm=092) MONOCYTES ABSOLUTE COUNT (BEAKER) (test 0.58 K/ L 0.24-0.36 fmqh=733) EOSINOPHILS ABSOLUTE COUNT (BEAKER) (test 0.12 K/ L 0.04-0.36 gtcs=013) BASOPHILS ABSOLUTE COUNT (BEAKER) (test 0.02 K/ L 0.01-0.08 spyx=354) IMMATURE GRANULOCYTES-RELATIVE PERCENT (BEAKER) 1 % 0-1 (test lhro=2382)
[2020-01-20 12:23] LABS: Absolute Lymphocytes (CBC) 1.2 K/uL (0.7-4.9); Basophils % 0.3 % (0-1.3); Hematocrit 37.4 % (36.0-45.0); Lymphocytes % 15.5 % (15.3-44.8); RBC Red Blood Cell Count 3.63 M/uL (3.86-4.86)
[2020-01-20 12:31] LABS: Protime INR 1.08
[2020-01-20 12:41] LABS: ALT/SGPT 408 U/L (12-78); Albumin 3.8 g/dL (3.4-5.0); Alkaline Phosphatase 53 U/L (45-117); BUN Blood Urea Nitrogen 34 mg/dL (7-18); Bicarbonate 25 mmol/L (21-32); Bilirubin Direct 0.2 mg/dL (0-0.2); CKMB Creatine Kinase MB 1.7 ng/mL (0.3-3.6); Creatine Phosphokinase 152 U/L (26-192); Glucose Level 182 mg/dL (74-106); Lipase 119 U/L (73-393); Magnesium 1.9 mg/dL (1.8-2.4); Potassium 4.6 mmol/L (3.5-5.1); Protein, Total 8.5 g/dL (6.4-8.2); Sodium Level 144 mmol/L (136-145); Troponin (Emerg Dept Use Only) < 0.02 ng/mL (0.0-0.045)
[2020-01-20 12:43] LABS: AST/SGOT 568 U/L (15-37)
--- NOTE | 2020-01-20 12:52 | RAD REPORT ---
EXAM DESCRIPTION: CT - CTHCSPWOC - 01/20/2020 12:38 pm CLINICAL HISTORY: Trauma, head and neck injury. fall COMPARISON: CT HEAD CSPINE MPR WO CONTRAST dated 01/28/2014 TECHNIQUE: Axial 5 mm thick images of the head were obtained. Axial 2 mm thick images of the cervical spine were obtained with sagittal and coronal reconstruction images generated and reviewed. All CT scans are performed using dose optimization technique as appropriate and may include automated exposure control or mA/KV adjustment according to patient size. FINDINGS: CT HEAD WITHOUT CONTRAST: No acute hemorrhage, hydrocephalus or extra-axial collection is identified.Moderate generalized brain atrophy is present with advanced periventricular and deep white matter chronic microvascular ischemi c changes.No areas of brain edema or midline shift. The paranasal sinuses and mastoids are clear.The calvarium is intact. CT CERVICAL SPINE WITHOUT CONTRAST: No fracture or subluxation.Degenerative changes are present lower cervical spine with endplate osteop hytes.No prevertebral soft tissues swelling is identified. Small pneumothorax is identified in the ri ght lung apex. IMPRESSION: No acute intracranial or cervical spine findings. Small pneumothorax is incidentally noted in the right apex. Correlation with chest radiograph would b e suggested. Dr. Gordon was notified.
--- NOTE | 2020-01-20 13:07 | RAD REPORT ---
EXAM DESCRIPTION: RAD - Chest Single View - 01/20/2020 1:00 pm CLINICAL HISTORY: PNEUMOTHORAX Chest pain. COMPARISON: Chest Single View dated 11/11/2018; Chest Pa And Lat (2 Views) dated 10/10/2018; Chest S reena View dated 09/10/2018; Abdomen Acute Series dated 07/13/2018 FINDINGS: Portable technique limits examination quality. A moderate to large right-sided pneumothorax is seen estimated at 50-60% of lung volume. The heart is enlarged with sternotomy wires present. Several right-sided rib fractures are seen affecting ribs 2 - 7.
--- NOTE | 2020-01-20 13:08 | RAD REPORT ---
EXAM DESCRIPTION: RAD - Knee Right 2 View - 01/20/2020 1:03 pm CLINICAL HISTORY: PAIN COMPARISON: No comparisons FINDINGS: Tricompartmental osteoarthritic changes are present. No acute fracture or dislocation. No joint effusion. Moderate popliteal atherosclerosis.
--- NOTE | 2020-01-20 13:27 | RAD REPORT ---
EXAM DESCRIPTION: CT - Thorax Wo Con CLINICAL HISTORY: Chest pain pneumothorax COMPARISON: No comparisons FINDINGS: A large right-sided pneumothorax is present estimated at 60-70 % of lung volume. Mild atel ectasis is present in the right lung base. Emphysematous changes are present. There is shift of the cardiomediastinal structures to the left present. Multiple right-sided rib fractures seen involving lateral right fourth, fifth, sixth and seventh, eig hth ribs. Additionally fracture with displacement seen involving posterior right sixth, seventh, eigh th, ninth, tenth ribs. All CT scans are performed using dose optimization technique as appropriate and may include automated exposure control or mA/KV adjustment according to patient size. IMPRESSION: Large right-sided tension pneumothorax as detailed. Numerous right-sided rib fractures involving the lateral and posterior aspects of several ribs as det dang. Findings discussed with Dr. Campuzano
[2020-01-20] MEDS ORDERED: propofoL 200 MG/20 ML VIAL IV ONE (13:41)
[2020-01-20] MEDS ORDERED: NA CHLORIDE 0.9% 1,000 ML ONE (13:41)
[2020-01-20] MEDS ORDERED: ONDANSETRON 4 MG/2 ML VIAL ONE ×2 (13:55→14:47)
[2020-01-20] MEDS ORDERED: HYDRALAZINE HCL 20 MG/ML VIAL ONE (15:51)
--- NOTE | 2020-01-20 15:55 | RAD REPORT ---
EXAM DESCRIPTION: CT - Abdomen Pelvis W Contrast - 01/20/2020 3:27 pm CLINICAL HISTORY: PAIN, right-sided pneumothorax with chest tube placement COMPARISON: Abdomen Pelvis W Contrast dated 04/25/2019; Thorax Wo Con dated 01/20/2020 TECHNIQUE: Biphasic, helical CT imaging of the abdomen and pelvis was performed following 100 ml non -ionic IV contrast. No oral contrast. All CT scans are performed using dose optimization technique as appropriate and may include automated exposure control or mA/KV adjustment according to patient size. FINDINGS: Right base atelectasis is present. Only a trace amount of pneumothorax present. Chest tube is seen in the soft tissues of the lower chest. Entry into the chest is above the field of view of t his examination. No pericardial thickening or effusion. No acute left lung base finding. Approximately 8 centimeter diameter low-density area is present in the posterosuperior right lobe of the liver. posterolateral capsular margin is poorly defined. There is fluid between the diaphragm and liver and along the lateral and inferior aspect of the liver capsule. No active extravasation of con trast seen at this time. There is fluid attenuation collecting in the dependent portion of the pelvis . Spleen and pancreas show no acute findings peer multiple gallstones are present with no acute gallbla dder finding seen. No biliary tree dilatation. Symmetric renal function is seen with no hydronephrosis or suspicious renal mass. No traumatic injury to the renal parenchyma. No pyelonephritis or mass lesion. No bladder abnormalities. No adrenal abno rmalities. Uterus is absent. Ovaries are absent or atrophic. No traumatic injury to the bowel. Moderate stool volume distends the rectum. No free air or pneumato sis. No hernia, mass or bulky lymphadenopathy. Bony degenerative change present. No acute vertebral body compression fracture. Rib fractures are det dang on the chest report. Findings telephoned to the referring physician 3:49 p.m. IMPRESSION: Large 8 centimeter low-density area in the posterosuperior liver in proximity to rib fra ctures. Irregular capsular margins seen posterolateral liver. There is fluid adjacent to the liver an d collecting in the dependent portion of the pelvis. Liver laceration is most likely given the trauma setting. No active extravasation of contrast outside of the liver capsule. Chest tube has been placed. Trace amount of pneumothorax seen in the lateral right base. Right chest is only partially imaged on this study.
--- NOTE | 2020-01-20 16:19 | RAD REPORT ---
EXAM DESCRIPTION: RAD - Chest Single View - 01/20/2020 3:26 pm CLINICAL HISTORY: POST CHEST TUBE, slip and fall COMPARISON: Chest Single View dated 01/20/2020 TECHNIQUE: AP portable chest image was obtained 01/20/2020 3:26 pm . FINDINGS: Large bore chest tube has been placed. Tip is in the lateral apex. The large tension pneum othorax has been nearly fully resolved. There does appear to be trace amounts of pneumothorax remnant at the base on the right. Trachea is midline. No pulmonary hemorrhage identified. Atelectasis is min imal. Heart size is normal. No measurable pleural effusion and no pneumothorax. No acute bony abnorma lity seen. No acute aortic findings suspected. IMPRESSION: Right-sided chest tube placement with complete or near complete resolution of the pneumo thorax. Trachea is now midline. No pulmonary hemorrhage. Minimal atelectasis present.
[2020-01-20 16:20] LABS: Absolute Lymphocytes (CBC) 0.7 K/uL (0.7-4.9); Basophils % 0.4 % (0-1.3); Hematocrit 34.8 % (36.0-45.0); Lymphocytes % 6.9 % (15.3-44.8); MPV 10.9 fL (7.6-11.3); RBC Red Blood Cell Count 3.38 M/uL (3.86-4.86)
--- NOTE | 2020-01-20 16:29 | ER ---
Nurse's Notes [facility] Name: Estefani Leiva Age: 79 yrs Sex: Female : 1940 Arrival Date: 01/20/2020 Time: 11:47 Bed 3 Private MD: Diagnosis: Pneumothorax, unspecified;Multiple fractures of ribs, right side;Moderate laceration of liver Presentation: 01/20 11:48 Presenting complaint: Patient states: Slipped and fell in kitchen. Unable to get up for ll1 2 hours. Found down by family, lived alone. Generalized right sided body pain. Transition of care: patient was not received from another setting of care. Onset of symptoms was January 20, 2020. Risk Assessment: Do you want to hurt yourself or someone else? Patient reports no desire to harm self or others. Initial Sepsis Screen: Does the patient meet any 2 criteria? No. Patient's initial sepsis screen is negative. Does the patient have a suspected source of infection? No. Patient's initial sepsis screen is negative. Care prior to arrival: Glucose check: 197. 11:48 Method Of Arrival: EMS: [facility] ll1 11:48 Acuity: LEORA 4 ll1 11:48 Acuity: LEORA 3 ll1 12:01 Mechanism of Injury: Fall from standing position. Trauma event details: Injury ll1 occurred: at home. Injury occurred: January 20, 2020. 16:01 Acuity: LEORA 2 jl7 Triage Assessment: 11:52 General: Appears in no apparent distress. uncomfortable, Behavior is calm, cooperative. ll1 Pain: Complains of pain in right knee and right lateral neck pain. Neuro: Level of Consciousness is awake, alert, Oriented to person, place, Prototype Model Maker are weak on right Moves all extremities. Speech is normal, Facial symmetry appears normal, Denies blurred vision numbness headache. Cardiovascular: Capillary refill < 3 seconds Patient's skin is warm and dry. Respiratory: No deficits noted. Derm: No deficits noted. Musculoskeletal: Reports pain in right knee and right neck. Trauma Activation: Not Applicable Physician: ED Physician; Name: ; Notified At: ; Arrived At: Physician: General Surgeon; Name: ; Notified At: ; Arrived At: Physician: Radiology; Name: ; Notified At: ; Arrived At: Physician: Respiratory; Name: ; Notified At: ; Arrived At: Physician: Lab; Name: ; Notified At: ; Arrived At: Historical: - Allergies: 11:51 NKA; ll1 - PMHx: 11:51 chronic diarrhea; Diabetes - NIDDM; CVA; Hyperlipidemia; Hypertension; ll1 - PSHx: 11:51 Hysterectomy; ll1 - Immunization history:: Adult Immunizations unknown. - Coronavirus screen:: The patient has NOT traveled to [place] in the past 14 days. - Immunization history: Last tetanus immunization: unknown. - Social history:: Smoking status: Patient denies any tobacco usage or history of. - Ebola Screening: : No symptoms or risks identified at this time. Screenin:00 Abuse screen: Denies threats or abuse. Tuberculosis screening: No symptoms or risk ll1 factors identified. Fall risk At risk due to age, prior history of falls, Intervention for positive screen: instructed to call for assist when getting up, side rails up. Exposure risk/Travel Screening: None identified. 12:02 Nutritional screening: No deficits noted. Fall Risk Fall in past 12 months (25 points). ll1 Primary Survey: 11:58 NO uncontrolled hemorrhage observed. A: The patient is alert. A: Airway: patent. ll1 Breathing/Chest: Respiratory pattern: regular, Respiratory effort: spontaneous, unlabored. Circulation: Skin color: pink, Skin temperature: warm, dry. Disability Alert. Exposure/Environment: A warming method has been applied: A warm blanket has been provided to the patient. 12:49 Reassessment Breathing/Chest Respiratory pattern Regular Respiratory effort Spontaneous ll1 Unlabored. Secondary Survey: 11:59 Musculoskeletal: Reports pain in right knee and right side of neck. ll1 Assessment: 11:57 General: see triage assessment. ll1 14:15 Reassessment: Patient appears in no apparent distress at this time. Patient and/or ph family updated on plan of care and expected duration. Pain level reassessed. Pt awake and alert, oriented to person and place, moved to ER-3 for chest tube placement, procedure explained to family by ERP, awaiting surgeon for chest tube placement. 14:30 Reassessment: Patient appears in no apparent distress at this time. No changes from ph previously documented assessment. Pt c/ nausea, ERP notified, see MAR. 14:50 Reassessment: Patient appears in no apparent distress at this time. No changes from ph previously documented assessment. Patient and/or family updated on plan of care and expected duration. Pain level reassessed. Dr La at bedside for chest tube placement, consent for signed by daughter. 15:15 Reassessment: Patient appears in no apparent distress at this time. Patient and/or ph family updated on plan of care and expected duration. Pain level reassessed. Pt awake but drowsy, tolerated procedure well, CXR taken to confirm plcmnt, pt taken to CT via stretcher. 15:45 Reassessment: ERD notified of BP, see MAR for orders. jl7 15:56 Reassessment: vEan Vela and family at bedside discussing results and POC. jl7 16:17 Reassessment: Patient appears in no apparent distress at this time. Patient and/or ph family updated on plan of care and expected duration. Pain level reassessed. 16:30 Reassessment: Patient appears in no apparent distress at this time. Patient and/or ph family updated on plan of care and expected duration. Pain level reassessed. Report called to [facility] ED, awaiting EMS for transport. 17:35 Reassessment: Patient appears in no apparent distress at this time. Patient and/or ph family updated on plan of care and expected duration. Pain level reassessed. [facility] at bedside for transfer, report given to Red LORENZO-P, approx 5 mL of bloody drainage noted in Pleur-a-vac. Vital Signs: 11:55 BP 190 / 66; Pulse 57; Resp 16; Temp 97.2; Pulse Ox 98% ; Weight 68.04 kg; ll1 12:15 BP 169 / 56; Pulse 58; Resp 18; Pulse Ox 95% ; ll1 13:00 BP 167 / 89; Pulse 56; Resp 22; Pulse Ox 95% on R/A; ph 14:00 BP 164 / 92; Pulse 58; Resp 24; Pulse Ox 93% on 2 lpm NC; ll1 14:35 BP 160 / 69; Pulse 55; Resp 22; Pulse Ox 99% on 2 lpm NC; ph 15:12 BP 164 / 89; Pulse 66; Resp 22; Pulse Ox 100% on 2 lpm NC; ph 15:45 BP 207 / 89; Pulse 73; Resp 19; Pulse Ox 100% ; jl7 16:08 BP 109 / 96; Pulse 68; Resp 21; Pulse Ox 100% ; jl7 16:30 BP 122 / 56; Pulse 64; Resp 20; Pulse Ox 99% on 2 lpm NC; ph 17:27 BP 138 / 59; Pulse 67; Resp 18; Temp 97.5; Pulse Ox 98% on 2 lpm NC; ph Becky Coma Score: 12:00 Eye Response: spontaneous(4). Verbal Response: oriented(5). Motor Response: obeys ll1 commands(6). Total: 15. 13:00 Eye Response: spontaneous(4). Verbal Response: oriented(5). Motor Response: obeys ph commands(6). Total: 15. 14:00 Eye Response: spontaneous(4). Verbal Response: oriented(5). Motor Response: obeys ph commands(6). Total: 15. 15:00 Eye Response: spontaneous(4). Verbal Response: oriented(5). Motor Response: obeys ph commands(6). Total: 15. 17:00 Eye Response: spontaneous(4). Verbal Response: oriented(5). Motor Response: obeys ph commands(6). Total: 15. Trauma Score (Adult): 12:00 Eye Response: spontaneous(1); Verbal Response: oriented(1); Motor Response: obeys ll1 commands(2); Systolic BP: > 89 mm Hg(4); Respiratory Rate: 10 to 29 per min(4); Becky Score: 15; Trauma Score: 12 13:00 Eye Response: spontaneous(1); Verbal Response: oriented(1); Motor Response: obeys ph commands(2); Systolic BP: > 89 mm Hg(4); Respiratory Rate: 10 to 29 per min(4); Becky Score: 15; Trauma Score: 12 14:00 Eye Response: spontaneous(1); Verbal Response: oriented(1); Motor Response: obeys ph commands(2); Systolic BP: > 89 mm Hg(4); Respiratory Rate: 10 to 29 per min(4); Becky Score: 15; Trauma Score: 12 15:00 Eye Response: spontaneous(1); Verbal Response: oriented(1); Motor Response: obeys ph commands(2); Systolic BP: > 89 mm Hg(4); Respiratory Rate: 10 to 29 per min(4); Becky Score: 15; Trauma Score: 12 16:08 Eye Response: spontaneous(1); Verbal Response: oriented(1); Motor Response: obeys ph commands(2); Systolic BP: > 89 mm Hg(4); Respiratory Rate: 10 to 29 per min(4); Becky Score: 15; Trauma Score: 12 17:00 Eye Response: spontaneous(1); Verbal Response: oriented(1); Motor Response: obeys ph commands(2); Systolic BP: > 89 mm Hg(4); Respiratory Rate: 10 to 29 per min(4); Newry Score: 15; Trauma Score: 12 ED Course: 11:47 Patient arrived in ED. ll1 11:49 Jeanmarie Gordon MD is Attending Physician. tw4 11:50 Triage completed. ll1 11:57 Arm band placed on right wrist. ll1 12:02 Patient has correct armband on for positive identification. Fall risk band placed. Bed ll1 in low position. Call light in reach. Side rails up X 1. monitor worker on. Pulse ox on. NIBP on. 12:02 Patient maintains SpO2 saturation greater than 95% on room air. Thermoregulation: warm ll1 blanket given to patient. 12:03 Amandeep Johnson, RN is Primary Nurse. ll1 12:16 Inserted saline lock: 20 gauge in left antecubital area, using aseptic technique. Blood ll1 collected. 12:38 CT Head C Spine In Process Unspecified. EDMS 13:02 Knee Right 2 View In Process Unspecified. EDMS 13:02 CXR XRAY In Process Unspecified. EDMS 13:15 CT Chest Wo Con In Process Unspecified. EDMS 14:25 Consent for conscious sedation explained by physician, JEAN MARIE juarez. Surgical consent ph explained by physicianlarry POA. 15:00 Assist provider with chest tube insertion with 28 Fr. in right lateral chest wall. Tray ph was set up. Attached to A-TEX. Chest tube inserted by Edgar La MD Placement verified by CXR, return of air, Dressed with foam tape, 4X4s, Patient tolerated well. 15:26 CXR XRAY In Process Unspecified. EDMS 15:29 CT Abd/Pelvis - IV Contrast Only In Process Unspecified. EDMS 16:08 Repeat lab(s) drawn. by me, sent to lab. jl7 17:32 Patient transferred, IV remains in place. ph Administered Medications: 14:25 Drug: Zofran 4 mg Route: IVP; Site: left antecubital; ph 14:40 Follow up: Response: No adverse reaction; Nausea unchanged ph 14:45 Drug: Zofran 4 mg Route: IVP; Site: left antecubital; ph 14:55 Follow up: Response: No adverse reaction; Vomiting decreased ph 14:51 Drug: Propofol 80 mg {Note: given as 40 mg \T\ 1451, 20 mg \T\ 1452, 20 mg \T\ 1457, per Dr bj Gordon.} Route: IVP; Site: left antecubital; 14:55 Follow up: Response: No adverse reaction; Patient is sedated; RASS: Moderate sedation ph (-3) 15:46 Drug: hydrALAZINE 20 mg Route: IV; Rate: calculated rate; Site: left antecubital; jl7 17:34 Follow up: Response: No adverse reaction; Blood pressure is lowered; IV Status: ph Completed infusion 16:21 Drug: NS 0.9% 500 ml Route: IV; Rate: bolus; Site: left antecubital; ph 17:34 Follow up: Response: No adverse reaction; IV Status: Completed infusion; IV Intake: ph 500ml 16:45 Drug: fentaNYL (PF) 25 mcg Route: IVP; Site: left antecubital; ph 17:00 Follow up: Response: No adverse reaction; Pain is decreased; RASS: Drowsy (-1) ph 17:24 Drug: fentaNYL (PF) 25 mcg Route: IVP; Site: left antecubital; ph 17:35 Follow up: Response: No adverse reaction ph Intake: 12:00 PO: 0ml; Total: 0ml. ll1 17:34 IV: 500ml; Total: 500ml. ph 17:37 drainage from chest tube ph Output: 17:37 Drainage: 5ml; Total: 5ml. ph 17:37 drainage from chest tube ph Outcome: 16:28 ER care complete, transfer ordered by twKyle 17:31 Transferred by ground [facility]. to [facility], Transfer form ph completed. X-rays sent w/ patient. 17:31 Condition: stable 17:31 Patient's length of stay was not longer than 2 hours. 17:38 Patient left the ED. ph Signatures: Dispatcher [employer] Criss Palumbo, RN RN ph Healy, CATHI Servin RN jl7 Jeanmarie Gordon MD MD tw4 Amandeep Johnson RN RN ll1
--- NOTE | 2020-01-20 16:30 | EDPHYS ---
Physician Documentation [facility] Name: Estefani Leiva Age: 79 yrs Sex: Female : 1940 Arrival Date: 01/20/2020 Time: 11:47 Bed 3 Private MD: ED Physician Jeanmarie Gordon HPI: 01/20 14:06 This 79 yrs old Black Female presents to ER via EMS with complaints of Fall Injury. tw4 14:06 Details of fall: The patient fell from an upright position, while walking. Onset: The tw4 symptoms/episode began/occurred today. Associated injuries: The patient sustained right knee. Severity of symptoms: At their worst the symptoms were moderate, in the emergency department the symptoms are unchanged. The patient has not experienced similar symptoms in the past. Historical: - Allergies: 11:51 NKA; ll1 - PMHx: 11:51 chronic diarrhea; Diabetes - NIDDM; CVA; Hyperlipidemia; Hypertension; ll1 - PSHx: 11:51 Hysterectomy; ll1 - Immunization history:: Adult Immunizations unknown. - Coronavirus screen:: The patient has NOT traveled to [place] in the past 14 days. - Immunization history: Last tetanus immunization: unknown. - Social history:: Smoking status: Patient denies any tobacco usage or history of. - Ebola Screening: : No symptoms or risks identified at this time. ROS: 14:06 Constitutional: Negative for fever, chills, and weight loss, Eyes: Negative for injury, tw4 pain, redness, and discharge, Cardiovascular: Negative for chest pain, palpitations, and edema, Respiratory: Negative for shortness of breath, cough, wheezing, and pleuritic chest pain, Abdomen/GI: Negative for abdominal pain, nausea, vomiting, diarrhea, and constipation, Back: Negative for injury and pain, Skin: Negative for injury, rash, and discoloration, Neuro: Negative for headache, weakness, numbness, tingling, and seizure. 14:06 MS/extremity: Positive for injury or acute deformity, decreased range of motion, swelling, tenderness. Exam: 14:06 Constitutional: This is a well developed, well nourished patient who is awake, alert, tw4 and in no acute distress. Head/Face: Normocephalic, atraumatic. Cardiovascular: Regular rate and rhythm with a normal S1 and S2. No gallops, murmurs, or rubs. Normal PMI, no JVD. No pulse deficits. Respiratory: Lungs have equal breath sounds bilaterally, clear to auscultation and percussion. No rales, rhonchi or wheezes noted. No increased work of breathing, no retractions or nasal flaring. Abdomen/GI: Soft, non-tender, with normal bowel sounds. No distension or tympany. No guarding or rebound. No evidence of tenderness throughout. Back: No spinal tenderness. No costovertebral tenderness. Full range of motion. MS/ Extremity: Pulses equal, no cyanosis. Neurovascular intact. Full, normal range of motion. Neuro: Awake and alert, GCS 15, oriented to person, place, time, and situation. Cranial nerves II-XII grossly intact. Motor strength 5/5 in all extremities. Sensory grossly intact. Cerebellar exam normal. Normal gait. Vital Signs: 11:55 BP 190 / 66; Pulse 57; Resp 16; Temp 97.2; Pulse Ox 98% ; Weight 68.04 kg; ll1 12:15 BP 169 / 56; Pulse 58; Resp 18; Pulse Ox 95% ; ll1 13:00 BP 167 / 89; Pulse 56; Resp 22; Pulse Ox 95% on R/A; ph 14:00 BP 164 / 92; Pulse 58; Resp 24; Pulse Ox 93% on 2 lpm NC; ll1 14:35 BP 160 / 69; Pulse 55; Resp 22; Pulse Ox 99% on 2 lpm NC; ph 15:12 BP 164 / 89; Pulse 66; Resp 22; Pulse Ox 100% on 2 lpm NC; ph 15:45 BP 207 / 89; Pulse 73; Resp 19; Pulse Ox 100% ; jl7 16:08 BP 109 / 96; Pulse 68; Resp 21; Pulse Ox 100% ; jl7 16:30 BP 122 / 56; Pulse 64; Resp 20; Pulse Ox 99% on 2 lpm NC; ph 17:27 BP 138 / 59; Pulse 67; Resp 18; Temp 97.5; Pulse Ox 98% on 2 lpm NC; ph Kaleva Coma Score: 12:00 Eye Response: spontaneous(4). Verbal Response: oriented(5). Motor Response: obeys ll1 commands(6). Total: 15. 13:00 Eye Response: spontaneous(4). Verbal Response: oriented(5). Motor Response: obeys ph commands(6). Total: 15. 14:00 Eye Response: spontaneous(4). Verbal Response: oriented(5). Motor Response: obeys ph commands(6). Total: 15. 15:00 Eye Response: spontaneous(4). Verbal Response: oriented(5). Motor Response: obeys ph commands(6). Total: 15. 17:00 Eye Response: spontaneous(4). Verbal Response: oriented(5). Motor Response: obeys ph commands(6). Total: 15. Trauma Score (Adult): 12:00 Eye Response: spontaneous(1); Verbal Response: oriented(1); Motor Response: obeys ll1 commands(2); Systolic BP: > 89 mm Hg(4); Respiratory Rate: 10 to 29 per min(4); Becky Score: 15; Trauma Score: 12 13:00 Eye Response: spontaneous(1); Verbal Response: oriented(1); Motor Response: obeys ph commands(2); Systolic BP: > 89 mm Hg(4); Respiratory Rate: 10 to 29 per min(4); Kaleva Score: 15; Trauma Score: 12 14:00 Eye Response: spontaneous(1); Verbal Response: oriented(1); Motor Response: obeys ph commands(2); Systolic BP: > 89 mm Hg(4); Respiratory Rate: 10 to 29 per min(4); Kaleva Score: 15; Trauma Score: 12 15:00 Eye Response: spontaneous(1); Verbal Response: oriented(1); Motor Response: obeys ph commands(2); Systolic BP: > 89 mm Hg(4); Respiratory Rate: 10 to 29 per min(4); Kaleva Score: 15; Trauma Score: 12 16:08 Eye Response: spontaneous(1); Verbal Response: oriented(1); Motor Response: obeys ph commands(2); Systolic BP: > 89 mm Hg(4); Respiratory Rate: 10 to 29 per min(4); Kaleva Score: 15; Trauma Score: 12 17:00 Eye Response: spontaneous(1); Verbal Response: oriented(1); Motor Response: obeys ph commands(2); Systolic BP: > 89 mm Hg(4); Respiratory Rate: 10 to 29 per min(4); Kaleva Score: 15; Trauma Score: 12 Procedures: 16:50 Moderate sedation: Pre-procedure assessment: the patient has been NPO an unknown amount tw4 of time prior to arrival, ASA physical classification: I - healthy, no underlying organic disease, Airway assessment: able to hyperextend neck, able to maintain airway, can open mouth without difficulty, Mallampati classification of tongue size: I - faucial pillars, soft palate, and uvula can be fully visualized, Monitoring during procedure: manager monitoring, continuous pulse oximetry, nurse at bedside at all times, Medications employed: Propofol 80 mg, Post-procedure assessment: the patient is moderately sedated, Coy sedation score: Respiratory status: even and unlabored, a reversal agent was not used. MDM: 11:49 Patient medically screened. tw4 13:56 Differential diagnosis: abrasion, closed head injury, contusion, sprain, strain. Data tw4 reviewed: vital signs, nurses notes, old medical records, lab test result(s), CBC, electrolytes, hepatic panel, radiologic studies, CT scan, plain films. Data interpreted: Pulse oximetry: Interpretation: normal. Counseling: I had a detailed discussion with the patient and/or guardian regarding: the historical points, exam findings, and any diagnostic results supporting the discharge/admit diagnosis, lab results, radiology results. Other consultation: consulted surgery Dr La for PTX at 1340 will perform chest thoracostomy in the ED. 16:20 Medication response: hydralazine. Response to treatment: the patient's symptoms have tw4 mildly improved after treatment, and as a result, I will admit patient. ED course: Pt had CT scan performed which revealed liver laceration that is encapsulated with no extravasation of contrast. There is minimal extraperitoneal hemorrhage. 16:50 ED course: Chest tube placed by Dr La pt tolerated procedure well. Pt received tw4 Fentanyl 25mcg for pain. 01/20 11:52 Order name: Basic Metabolic Panel; Complete Time: 12:49 tw4 01/20 12:49 Interpretation: Normal except: CL 110; GLUC 182; BUN 34; CRE 1.40; GFR 44. tw4 01/20 11:52 Order name: CBC with Diff; Complete Time: 12:43 tw4 01/20 12:43 Interpretation: Normal except: RBC 3.63; MCV 103.0; RDW 17.3. tw4 /25 11:52 Order name: Ckmb; Complete Time: 12:49 01/20 11:52 Order name: CPK; Complete Time: 12:49 01/20 11:52 Order name: Hepatic Function; Complete Time: 12:49 01/20 11:52 Order name: Lipase; Complete Time: 12:49 01/20 11:52 Order name: CT Head C Spine; Complete Time: 16:09 01/20 11:52 Order name: Magnesium; Complete Time: 12:49 01/20 11:52 Order name: Protime (+inr); Complete Time: 12:43 01/20 12:43 Interpretation: Normal except: PT 12.7. 01/20 11:52 Order name: Ptt, Activated; Complete Time: 12:43 01/20 11:52 Order name: Troponin (emerg Dept Use Only); Complete Time: 12:49 01/20 12:50 Order name: Knee Right 2 View; Complete Time: 16:09 [facility] 01/20 16:01 Order name: CBC with Diff jl7 01/20 16:29 Interpretation: Normal except: WBC 10.3; RBC 3.38; HGB 11.3; HCT 34.8; MCV 103.0; NEUT tw4 A 9.1; LYM% 6.9; CLARE% 88.4; RDW 17.0. 01/20 11:52 Order name: EKG; Complete Time: 11:54 01/20 11:52 Order name: Cardiac monitoring; Complete Time: 12:21 01/20 11:52 Order name: EKG - Nurse/Tech; Complete Time: 14:31 01/20 11:52 Order name: IV Saline Lock; Complete Time: 12:21 01/20 11:52 Order name: Labs collected and sent; Complete Time: 12:21 01/20 12:51 Order name: CXR XRAY; Complete Time: 16:09 01/20 12:53 Order name: CT Chest Wo Con; Complete Time: 16:09 01/20 14:59 Order name: CT Abd/Pelvis - IV Contrast Only; Complete Time: 16:01/20 15:01 Order name: CXR XRAY; Complete Time: 16:29 tw4 01/20 11:52 Order name: NPO; Complete Time: 12:21 4 01/20 11:52 Order name: O2 Per Protocol; Complete Time: 12:01/20 11:52 Order name: O2 Sat Monitoring; Complete Time: 12:4 EC:30 Rate is 57 beats/min. Rhythm is regular. QRS [place] is Normal. VA interval is normal. QRS tw4 interval is normal. QT interval is normal. No Q waves. T waves are Inverted in leads V5, V6. No ST changes noted. Clinical impression: NSR w/ Non-specific ST/T Changes. Interpreted by me. Reviewed by me. Administered Medications: 14:25 Drug: Zofran 4 mg Route: IVP; Site: left antecubital; ph 14:40 Follow up: Response: No adverse reaction; Nausea unchanged ph 14:45 Drug: Zofran 4 mg Route: IVP; Site: left antecubital; ph 14:55 Follow up: Response: No adverse reaction; Vomiting decreased ph 14:51 Drug: Propofol 80 mg {Note: given as 40 mg \T\ 1451, 20 mg \T\ 1452, 20 mg \T\ 1457, per Dr bj Gordon.} Route: IVP; Site: left antecubital; 14:55 Follow up: Response: No adverse reaction; Patient is sedated; RASS: Moderate sedation ph (-3) 15:46 Drug: hydrALAZINE 20 mg Route: IV; Rate: calculated rate; Site: left antecubital; jl7 17:34 Follow up: Response: No adverse reaction; Blood pressure is lowered; IV Status: ph Completed infusion 16:21 Drug: NS 0.9% 500 ml Route: IV; Rate: bolus; Site: left antecubital; ph 17:34 Follow up: Response: No adverse reaction; IV Status: Completed infusion; IV Intake: ph 500ml 16:45 Drug: fentaNYL (PF) 25 mcg Route: IVP; Site: left antecubital; ph 17:00 Follow up: Response: No adverse reaction; Pain is decreased; RASS: Drowsy (-1) ph 17:24 Drug: fentaNYL (PF) 25 mcg Route: IVP; Site: left antecubital; ph 17:35 Follow up: Response: No adverse reaction ph Disposition: 01/20/20 16:28 Transfer ordered to [facility]. Diagnosis are Pneumothorax, unspecified, Multiple fractures of ribs, right side, Moderate laceration of liver. - Reason for transfer: Higher level of care. - Accepting physician is Dr Kendrick. - Condition is Stable. - Problem is new. - Symptoms have improved. Critical care time excluding procedures: 16:50 Critical care time: Bedside Care: 40 minutes, Consultation: 15 minutes, Family tw4 Intervention: 10 minutes. Total time: 65 minutes Signatures: Dispatcher [employer] EDNH Criss Shahid, RN RN ph Malathi Healy, RN RN jl7 Jeanmarie Gordon MD MD tw4 Amandeep Johnson RN RN ll1 Corrections: (The following items were deleted from the chart) 12:49 11:54 Knee Right 3 View+RAD.RAD.BRZ ordered. [facility] 17:38 16:28 01/20/2020 16:28 Transfer ordered to [facility]. Diagnosis is ph Pneumothorax, unspecified; Multiple fractures of ribs, right side; Moderate laceration of liver. Reason for transfer: Higher level of care. Accepting physician is Dr Kendrick. Condition is Stable. Problem is new. Symptoms have improved. tw4
[2020-01-20] MEDS ORDERED: FENTANYL CITR 100 MCG/2 ML ONE (16:37)
[2020-01-20 17:23] LABS: Blood Morphology Comment NOT SEEN (NOT SEEN); Platelet Estimate DECR; Urine White Blood Cell Casts OK
--- NOTE | 2020-01-20 20:23 | CON ---
Date of Consultation: 01/20/2020 Reason For Consultation: Trauma patient and a pneumothorax. History Of Present Illness: This is a case of a female who comes to us, initially seen by the ER alan brown after the patient apparently tripped and hit the right chest with the nearby table as per virgen nicole, sustaining multiple rib fractures, but during the workup, initially it seemed as a possible rib f racture. Did not do the chest CT, but then the doctor did a chest CT and then found to have a pneumo thorax. So, the x-ray also showing the patient has a pneumothorax and a surgical consult was called emergently for placement of a chest tube since this is more than 40%. Most of the information of ramirez s patient is obtained from the 2 daughters. They are at bedside. They seem to communicate. The pat ient is calm, but she does not give much information. Other than that, she did not pass out and she just tripped what she called it. No dysuria, hematuria, hematochezia, melena. No shortness of breat h. No chest pain other than over the area of the ribs on palpation. Secondary survey shows a tender ness of the right chest area and no crepitus, no open lacerations. Allergies: NONE. Past Medical History: History of intermittent diarrhea or constipation, CVA, noninsulin-dependent di abetes, hyperlipidemia, hypertension. Past Surgical History: Hysterectomy. Social History: She does not smoke. She does not drink alcohol. Family History: Noncontributory. Physical Examination: General: Patient is awake and alert. She follows commands. She states she has tenderness when we p alpated the right chest area. HEENT: Pupils are anicteric, equal, and reactive. EOM positive. Tongue in the midline. No step-of f, no pinpoint tenderness. Neck: No step-off, no pinpoint tenderness. Chest: Initially before the chest tube, patient had diminished breath sounds on the right side. Aft er the chest tube, patient had a full normal auscultation. Patient has a midline incision in the lidia st a previous cardiac surgery, although details of that are not given at this moment. Abdomen: Soft and depressible. No guarding or rebound. No peritoneal signs. Pelvis: Stable. Rectal: Deferred. Genitalia: Deferred. Breasts: No discrete masses palpated, no nipple discharge. Extremities: Patient has no pinpoint tenderness. No gross deformities. pulses are prese nt in dorsalis pedis, although decreased. No cyanosis. Neuro: GCS 15. Diagnostic Data: Blood work shows a WBC count of 8.1, hemoglobin of 12. INR is 1.08. AST 568, ALT 408. Potassium is 4.6. Lipase 119. Patient had initial head CT, C-spine CAT. The head and neck [facility] CAT scan shows no intracranial or cervical spine findings. Small pneumothorax seen in the apex. This was followed by a chest CT and the chest CT shows a large right-sided pneumothorax. Assessment: An 79-year-old patient comes to us with a large pneumothorax on the right side. Patient and the family fully explained the benefits, alternatives, and risks of chest tube placement which i nclude but not limited to infection, bleeding, damage to adjacent structures, anesthesia complication , hemothorax, pneumothorax, empyema, VA, even . She also understands this may not relieve her s ymptoms. She might need more than one surgical intervention. I discussed the case with the ER physi bhavya and the primary doctor. Even though she is in the trauma service now, may require some medical intervention in the future in the sense of pulmonary toilet, even pain management since the patient h as multiple rib fractures. The chest tube was done just before we have this note since we did not wa nt to delay the treatment immediately. The patient was explained about the multiple rib fractures on the right side and the lateral side which are the right 4, 5, 6, 7, and 8 and then she also has lu tional fractures on 6, 7, 8, 9, 10. The patient's primary doctor will evaluate her to see if they fe el comfortable admitting this patient to this institution. If not, then patient will be transferred to a higher level of care. Once again, we would pay attention to the chest tube point and daily x-ra ys. I also recommend the patient to complete the CAT scan to include the abdomen and pelvis. HM/MODL Voice ID: [id number] Report ID: [id number]
[2020-01-20 23:27] VITALS: BP 138/59; TEMP 97.5; O2SAT 98
--- NOTE | 2020-01-21 00:59 | OP ---
Surgeon: Edgar La MD This is an emergent chest tube placement in the ER. Preoperative Diagnoses: Multiple rib fracture, right side and pneumothorax large. Postoperative Diagnoses: Multiple rib fracture, right side and pneumothorax large. Procedure: A right chest tube placement. Please see the ER physician's conscious sedation on this patient previously. Anesthesia: Javed Monson, local anesthetic Indications: This is the case 79-year-old patient found to have pneumothorax emergently explained to the patient and family the need for immediate chest tube placement, decompress the area the area and treat. The patient is hemodynamically stable in no distress and no chest pain at this moment. Ines l signs were stable. So, we put the patient in the supine position. Local anesthesia was applied. The area was prepped and draped in a sterile fashion. Time-out was called. We identified the area b etween the fourth and fifth intercostal space. We made an incision around that area and found the ar ea just above the rib and enter the chest over that area with careful manipulation of the clamp. The n, after that, we made sure there were no adhesions and after that, we put a chest tube in this patie nt and secured in place with 3-0 nylon. [place] of air was heard when we put that in. Vital signs stil l stable. The chest tube was connected to Pleur-evac suction and the area was covered with a lasting gauze and sterile dressings. Patient tolerated the procedure well. The patient will stay in the ER and the medical doctors will try to once again evaluate to see if the y can handle the situation, if not they we will suggest the patient to be sent to a higher level of c are. KAREN/RENE Voice ID: [id number] Report ID: [id number]
--- NOTE | 2020-01-21 08:20 | EKG ---
Test Date: 2020-01-20 Test Time: 14:16:34 Replacer: PIERO MEASUREMENT RESULTS: Intervals: Rate: 57 AK: 240 QRSD: 68 QT: 460 QTc: 447 Burnet: P: 74 AK: 240 QRS: 15 T: 33 INTERPRETIVE STATEMENTS: Sinus rhythm with first degree AV block Nonspecific T wave abnormality Abnormal ECG Compared to ECG 11/11/2018 13:43:15 T-wave abnormality now present Left ventricular hypertrophy no longer present Electronically Signed On 01-21-20 08:19:47 ONLINE COMMUNICATIONS MANAGER by Myles Sood
== END 2020-01-20 17:38 | disposition short-term general hospital (02) ==
LOC: ER 11:41
PROC: 0W9930Z Drainage of Right Pleural Cavity with Drainage Device, Percutaneous Approach (ICD-10-PCS; principal; 2020-01-20)
DX: J93.9 Pneumothorax, unspecified (principal); S36.115A Moderate laceration of liver, initial encounter; M25.561 Pain in right knee; W19.XXXA Unspecified fall, initial encounter; Y93.01 Activity, walking, marching and hiking; Y92.9 Unspecified place or not applicable; I10 Essential (primary) hypertension
CPT/HCPCS: 96365; 93005; 85025 ×2; 80048; 36415; 83735; 82550; 85610; 80076; 85730; 84484; 82553; 83690; 70450; 71250; 72125; 74177; 71045 ×2; 73560; 96375; 99291; 96366; 32551; Q9967; J0360; J2704; J3010; J7030; J2405 ×2

== ENCOUNTER 2020-06-18 20:26 | Observation (INO) | payer OTHER ==
--- OUTSIDE RECORDS SUMMARY | 2020-06-18 20:28 | XMS REPORT | Clinical Summary ---
:1940 Author Organization [facility] Address [address] [place] [address] Care Team Providers Name Role Phone Pcp Primary Care Provider Unavailable Oral Christopher Unavailable Allergies No Known Allergies Medications Medication Sig Dispensed Refills Start Date End Date Status aspirin 81 MG EC Take 81 mg by mouth 0 Active tablet daily. atorvastatin Take 40 mg by mouth 0 10/01/2018 Active (LIPITOR) 40 MG daily. tablet furosemide (LASIX) Take 20 mg by mouth 0 09/11/2018 Active 20 MG tablet daily. HUMULIN 70/30 U-100 INJECT 32 UNITS 0 08/29/2018 Active INSULIN 100 unit/mL UNDER THE SKIN (70-30) injection EVERY MORNING AND 20 UNITS EVERY EVENING metFORMIN Take 1,000 mg by 0 08/31/2018 Ac tive (GLUCOPHAGE-XR) 500 mouth 2 (two) times MG 24 hr tablet daily. VESICARE 5 mg Take 5 mg by mouth 0 09/11/2018 Active tablet daily. traZODone (DESYREL) Take 50 mg by mouth 0 10/21/2018 Active 50 MG tablet every night as needed. polyethylene glycol Use daily per 0 12/27/2018 Active (GLYCOLAX) 17 gram package packet instructions for constipation. Is kvji-duw-zoyuotn.. lisinopril Take 1 tablet (10 0 12/27/2018 12/27/2019 (PRINIVIL,ZESTRIL) mg total) by mouth 10 MG tablet daily. ferrous sulfate 325 Take 1 tablet (325 60 tablet 1 12/27/2018 12/27/2019 (65 FE) MG tablet mg total) by mouth 2 (two) times daily with breakfast and dinner No more refills through my office. metoprolol Take 0.5 tablets 30 tablet 5 12/27/2018 12/27/2019 (LOPRESSOR) 25 MG (12.5 mg total) by tablet mouth 2 (two) times daily No more refills through my office. Active Problems Problem Noted Date S/P CABG (coronary artery bypass graft) 12/27/2018 S/P carotid endarterectomy 12/27/2018 CAD (coronary artery disease) 12/17/2018 Carotid stenosis, right 11/28/2018 Carotid artery occlusion Coronary artery disease Stroke Hypertension Hyperlipidemia Family History Medical History Relation Name Comments Breast cancer Mother Relation Name Status Comments Mother Social History Tobacco Use Types Packs/Day Years Used Date Former Smoker 1 Quit: 2017 Smokeless Tobacco: Never Used Alcohol Use Drinks/Week oz/Week Comments Yes moderately Alcohol Habits Answer Date Recorded How often do you have a drink containing alcohol? Never 11/04/2018 How many drinks containing alcohol do you have on a typical Not asked day when you are drinking? How often do you have six or more drinks on one occasion? No t asked Sex Assigned at Date Recorded Not on file Job Start Date Occupation Industry Not on file Not on file Not on file Travel History Travel Start Travel End No recent travel history available. Last Filed Vital Signs Not on file Plan of Treatment Health Maintenance Due Date Last Done Comments PNEUMOCOCCAL 65+ LOW/MEDIUM RISK (1 of 2 - PCV13) 2004 MEDICARE ANNUAL WELLNESS (YEAR 2 or FIRST YEAR if no 11/27/2019 IPPE) INFLUENZA VACCINE (Season Ended) 2020 Implants Implanted Type Area Access Clerk Device Shelf Model / Identifier Expiration Serial / Lot Date Grft Hemshld Dbl Akin 0.3x3.0in [id number] - [id number] Graft /Pa Right: GETINGE 02/23/2023 [id number] / Implanted: Qty: 1 on 11/28/2018 by Geo Farfan MD t ch Neck IND:MAROXANNET:CV [id number] / [id number] Results Not on fileafter 06/18/2019 Insurance Payer Benefit Plan / Subscriber ID Type Phone Address Group [facility]IC[facility] xxxxxxxxx MEDICARE MGD CARE HMO MEDICAID - MEDICAID [facility] COMM STAR xxxxxxxxx Medicaid Contracted MGD CARE PLAN Advance Directives For more information, please contact:[place] [id number] [place], [place] [phone] Code Status Date Activated Date Inactivated Comments Full Code 12/17/2018 7:11 AM This code status was determined by: Patient Full Code 12/16/2018 1:38 PM 12/17/2018 7:11 AM This code status was determined by: Patient Full Code 11/28/2018 6:09 AM 12/16/2018 1:38 PM This code status was determined by: Patient
--- OUTSIDE RECORDS SUMMARY | 2020-06-18 20:34 | XMS REPORT | Continuity of Care Document ---
:1940 Author Organization [facility] t Address [address] [place] [address] Care Team Providers Name Role Phone Pcp Primary Care Physician Unavailable ROBERT FARFAN Attending Clinician Unavailable ROBERT FARFAN Admitting Clinician Unavailable Problems Condition Condition Condition Status Onset Resolution Last Treating Co mments Source Name Details Category Date Date Treatment Clinician Date S/P CABG S/P CABG Disease [facility] 2 [place] - artery artery 00:00: Medical bypass bypass [address] [place] [address] graft) graft) S/P S/P Disease Active [facility] carotid carotid 2 [facility] - endarterec endarterec 00:00: Sd dical jessa jessa 00 [place] Carotid Carotid Disease Active [facility] stenosis, stenosis, [facility] - right right 00:00: Medical 00 [place] Carotid Carotid Disease Active [facility] St artery artery [facility] - occlusion occlusion [facility] Coronary Coronary Disease Active [facility] artery artery [facility] - disease [facility] Stroke Stroke Disease Active [facility] Hypertensi Hypertensi Disease Active [facility] on on [facility] Hyperlipid Hyperlipid Disease [facility] Allergies, Adverse Reactions, Alerts This patient has no known allergies or adverse reactions. Family History Family Member Diagnosis Comments Start Date Stop Date Source Natural mother Breast cancer [facility] Social History Social Habit Start Date Stop Date Quantity Comments Source History of tobacco Current smoker [facility] History SDOH [facility] - Alcohol Std Drinks [facility]ica Center History SDMN ZACARIAS Siddiqui - Alcohol Binge Medical Janett ter Sex Assigned At [facility] gissel - [facility] Center Cigarettes smoked 2019-01-08 2019-01-08 ZACARIAS Siddiqui - current (pack per 00:00:00 00:00:00 Medical Center day) - Reported Alcohol Comment 2018-11-06 2018-11-06 moderately [facility] [address] Denise chauhan - 00:00:00 00:00:00 Medical Center History SDMN 2018-11-04 2018-11-04 1 ZACARIAS Siddiqui - Alcohol Frequency 00:00:00 00:00:00 Medical Center Smoking Status Start Date Stop Date Source Former smoker 2019-01-08 00:00:00 2019-01-08 00:00:00 [facility] Medications Ordered Filled Start Stop Current Ordering Indication Dosage Frequency Signature Comments Components Source Medication Medication Date Date Medication? Clinician (SIG) Name Name polyethylen Yes Use daily [facility] e glycol - per [facility] - (GLYCOLAX) 00:00: package Medi preeti 17 gram 00 instructio Center packet ns for constipati on. Is over-the-c ounter.. lisinopril 2020- No 10mg QD Take [address] (PRINIVIL,Z 12-27 tablet (10 L ukes - ESTRIL) 10 00:00: 23:59 mg total) M edical MG tablet 00 :00 by mouth Center daily. ferrous 2020- No 325mg Take [address] sulfate 325 12-27 tablet [facility] - (65 FE) MG 00:00: 23:59 (325 mg Med ical tablet 00 :00 total) by Center mouth 2 (two) times daily with breakfast and dinner No more refills through my office. metoprolol 2020- No 12.5mg Q.5D Take 0.[address] (LOPRESSOR) 12-27 tablets Luke s - 25 MG 00:00: 23:59 (12.5 mg Medical tablet 00 :00 total) by Center mouth 2 (two) times daily No more refills through my office. aspirin 81 2017-11 Yes 81mg QD Take [address] MG EC 2-10 by mouth [facility] - tablet 11:11: daily. [place] [address] Center traZODone 2017-11 Yes 50mg Take [address] (DESYREL) 1-26 by mouth [facility] - 50 MG 00:00: every Medical tablet 00 night as Center needed. atorvastati 2017-11 Yes 40mg QD Take [address] n (LIPITOR) 1-06 by mouth [facility] - 40 MG 00:00: daily. Medical tablet 00 Center furosemide 2017-11 Yes 20mg QD Take [address] (LASIX) 20 0-17 by mouth [facility] - MG tablet 00:00: daily. Medica l 00 [place] VESICARE 5 2017-11 Yes 5mg QD Take [address] mg tablet 0-17 by mouth [facility] - 00:00: daily. [facility] 00 [place] metFORMIN 2017-11 Yes 1000mg Q.5D Take 1,[address] (GLUCOPHAGE 0-06 mg by [facility] - -XR) 500 MG 00:00: mouth 2 Med ical 24 hr 00 (two) Center tablet times daily. HUMULIN 2017-11 Yes INJECT 32 [facility] 70/30 U-100 0-04 UNITS [facility] - INSULIN 100 00:00: UNDER THE M edical unit/mL 00 SKIN EVERY Center (70-30) MORNING injection AND 20 UNITS EVERY EVENING Procedures This patient has no known procedures. Plan of Care Planned Activity Planned Date Details Comments Source Future Scheduled 2020-07-[address] [facility] - Test 00:00:00 (Season Ended) [code = [facility] INFLUENZA VACCINE (Season Ended)] Future Scheduled 2019-11-[address] [facility] - Test 00:00:00 WELLNESS (YEAR 2 or Medical Center FIRST YEAR if no IPPE) [code = MEDICARE ANNUAL WELLNESS (YEAR 2 or FIRST YEAR if no IPPE)] Future Scheduled 2004 PNEUMOCOCCAL [address]+ [facility] - Test 00:00:00 LOW/MEDIUM RISK ([facility] [place] 2 - PCV13) [code = PNEUMOCOCCAL 65+ LOW/MEDIUM RISK (1 of 2 - PCV13)] Results Test Description Test Time Test Comments Results Result Comments Source POCT-GLUCOSE METER 2018-12-27 13:28:00 Test Item Value Reference Range Interpretation [facility] POC-GLUCOSE METER (RUFUS) (test 153 mg/dL 70-110 H TESTED AT [facility] [address] [facility] code = 1538) [facility] 7703 0 POCT-GLUCOSE [id number] 09:00:00 Test Item Value Reference Range Interpretation Comments POC-GLUCOSE METER 193 mg/dL 70-110 H TESTED AT [facility] 6720 (BEAKER) (test code = ALONDRA Coy [facility] 1538) [id number] 06:55:00 Test Item Value Reference Range Interpretation Comments MAGNESIUM (BEAKER) (test code = 1.5 mg/dL 1.6-2.6 L 627) BASIC METABOLIC [id number] 06:55:00 Test Item Value Reference Range Interpretation Comments SODIUM (BEAKER) 141 meq/L 136-145 (test code = 381) POTASSIUM (BEAKER) 4.9 meq/L 3.5-5.1 (test code = 379) CHLORIDE (BEAKER) 105 meq/L 98-107 (test code = 382) CO2 (BEAKER) (test 28 meq/L 22-29 code = 355) BLOOD UREA NITROGEN 11 mg/dL 7-21 (BEAKER) (test code = 354) CREATININE (BEAKER) 0.88 mg/dL 0.57-1.25 (test code = 358) GLUCOSE RANDOM 132 mg/dL 70-105 H (BEAKER) (test code = 652) CALCIUM (BEAKER) 9.9 mg/dL 8.4-10.2 (test code = 697) EGFR (BEAKER) (test 75 mL/min/1.73 ESTIMA DMITRY GFR IS code = 1092) sq m NOT ACCURATE CREATININE CLEARANCE IN PREDICTING GLOMERULAR FILTRATION RATE . ESTIMATED GFR I S NOT APPLICABLE FOR DIALYSIS PATIEN TS. CBC W/PLT COUNT & AUTO [id number] 06:25:00 Test Item Value Reference Range Interpretation Comments WHITE BLOOD CELL COUNT (BEAKER) 7.1 K/ L 3.5-10.5 (test code = 775) RED BLOOD CELL COUNT (BEAKER) 2.97 M/ L 3.93-5.22 L (test code = 761) HEMOGLOBIN (BEAKER) (test code = 9.2 GM/DL 11.2-15.7 L 410) HEMATOCRIT (BEAKER) (test code = 30.1 % 34.1-44.9 L 411) MEAN CORPUSCULAR VOLUME (BEAKER) 101.3 fL 79.4-94.8 H (test code = 753) MEAN CORPUSCULAR HEMOGLOBIN 31.0 pg 25.6-32.2 (BEAKER) (test code = 751) MEAN CORPUSCULAR HEMOGLOBIN CONC 30.6 GM/DL 32.2-35.5 L (BEAKER) (test code = 752) RED CELL DISTRIBUTION WIDTH 17.2 % 11.7-14.4 H (BEAKER) (test code = 412) PLATELET COUNT (BEAKER) (test 292 K/CU MM 150-450 code = 756) MEAN PLATELET VOLUME (BEAKER) 11.5 fL 9.4-12.3 (test code = 754) NUCLEATED RED BLOOD CELLS 0 /100 WBC 0-0 (BEAKER) (test code = 413) NEUTROPHILS RELATIVE PERCENT 71 % (BEAKER) (test code = 429) LYMPHOCYTES RELATIVE PERCENT 19 % (BEAKER) (test code = 430) MONOCYTES RELATIVE PERCENT 7 % (BEAKER) (test code = 431) EOSINOPHILS RELATIVE PERCENT 2 % (BEAKER) (test code = 432) BASOPHILS RELATIVE PERCENT 1 % (BEAKER) (test code = 437) NEUTROPHILS ABSOLUTE COUNT 5.01 K/ L 1.56-6.13 (BEAKER) (test code = 670) LYMPHOCYTES ABSOLUTE COUNT 1.35 K/ L 1.18-3.74 (BEAKER) (test code = 414) MONOCYTES ABSOLUTE COUNT (BEAKER) 0.50 K/ L 0.24-0.36 H (test code = 415) EOSINOPHILS ABSOLUTE COUNT 0.11 K/ L 0.04-0.36 (BEAKER) (test code = 416) BASOPHILS ABSOLUTE COUNT (BEAKER) 0.05 K/ L 0.01-0.08 (test code = 417) IMMATURE GRANULOCYTES-RELATIVE 1 % 0-1 PERCENT (BEAKER) (test code = 2801) POCT-GLUCOSE [id number] 23:25:00 Test Item Value Reference Range Interpretation Comments POC-GLUCOSE METER 171 mg/dL 70-110 H TESTED AT [facility] 6720 (BEAKER) (test code = ALONDRA [place] 1538) [id number] POCT-GLUCOSE [id number] 18:08:00 Test Item Value Reference Range Interpretation Comments POC-GLUCOSE METER 138 mg/dL 70-110 H TESTED AT [facility] 6720 (BEAKER) (test code = ALONDRA Coy [facility] 1538) [id number] POCT-GLUCOSE [id number] 13:05:00 Test Item Value Reference Range Interpretation Comments POC-GLUCOSE METER 140 mg/dL 70-110 H TESTED AT [place] [address] ([facility]) (test code = ALONDRA Coy [facility] 1538) [id number] POCT-GLUCOSE [id number] 08:57:00 Test Item Value Reference Range Interpretation Comments POC-GLUCOSE METER 180 mg/dL 70-110 H TESTED AT [place] [address] ([facility]) (test code = ALONDRA Coy [facility] 1538) [address] POCT-GLUCOSE [id number] 21:30:00 Test Item Value Reference Range Interpretation Comments POC-GLUCOSE METER 212 mg/dL 70-110 H TESTED AT [place] [address] ([facility]) (test code = ALONDRA Coy [facility] 1538) [address] POCT-GLUCOSE [id number] 17:26:00 Test Item Value Reference Range Interpretation Comments POC-GLUCOSE METER 117 mg/dL 70-110 H TESTED AT [place] [address] ([facility]) (test code = [facility] Zbigniew [facility] 1538) [address] POCT-GLUCOSE [id number] 13:12:00 Test Item Value Reference Range Interpretation Comments POC-GLUCOSE METER 166 mg/dL 70-110 H TESTED AT [place] [address] ([facility]) (test code = [facility] Zbigniew [facility] 1538) [id number] URIC [id number] 13:02:00 Test Item Value Reference Range Interpretation Comments URIC ACID (AKER) (test code = 5.9 mg/dL 2.6-7.2 773) POCT-GLUCOSE [id number] 09:40:00 Test Item Value Reference Range Interpretation Comments POC-GLUCOSE METER 175 mg/dL 70-110 H TESTED AT [place] [address] ([facility]) (test code = [facility] Zbigniew [facility] 1538) [id number] POCT-GLUCOSE [id number] 08:10:00 Test Item Value Reference Range Interpretation Comments POC-GLUCOSE METER 175 mg/dL 70-110 H TESTED AT [place] [address] ([facility]) (test code = [facility] 1538) [id number] 05:15:00 Test Item Value Reference Range Interpretation Comments MAGNESIUM (BEAKER) (test code = 1.8 mg/dL 1.6-2.6 627) BASIC METABOLIC [id number] 05:15:00 Test Item Value Reference Range Interpretation Comments SODIUM (BEAKER) 140 meq/L 136-145 (test code = 381) POTASSIUM (BEAKER) 4.2 meq/L 3.5-5.1 (test code = 379) CHLORIDE (BEAKER) 105 meq/L 98-107 (test code = 382) CO2 (BEAKER) (test 29 meq/L 22-29 code = 355) BLOOD UREA NITROGEN 11 mg/dL 7-21 (BEAKER) (test code = 354) CREATININE (BEAKER) 0.77 mg/dL 0.57-1.25 (test code = 358) GLUCOSE RANDOM 110 mg/dL 70-105 H (BEAKER) (test code = 652) CALCIUM (BEAKER) 9.5 mg/dL 8.4-10.2 (test code = 697) EGFR (BEAKER) (test 88 mL/min/1.73 ESTIMA DMITRY GFR IS code = 1092) sq m NOT ACCURATE CREATININE CLEARANCE IN PREDICTING GLOMERULAR FILTRATION RATE . ESTIMATED GFR I S NOT APPLICABLE FOR DIALYSIS PATIEN TS. CBC W/PLT COUNT & AUTO [id number] 04:56:00 Test Item Value Reference Range Interpretation Comments WHITE BLOOD CELL COUNT (BEAKER) 6.3 K/ L 3.5-10.5 (test code = 775) RED BLOOD CELL COUNT (BEAKER) 2.85 M/ L 3.93-5.22 L (test code = 761) HEMOGLOBIN (BEAKER) (test code = 8.8 GM/DL 11.2-15.7 L 410) HEMATOCRIT (BEAKER) (test code = 28.6 % 34.1-44.9 L 411) MEAN CORPUSCULAR VOLUME (BEAKER) 100.4 fL 79.4-94.8 H (test code = 753) MEAN CORPUSCULAR HEMOGLOBIN 30.9 pg 25.6-32.2 (BEAKER) (test code = 751) MEAN CORPUSCULAR HEMOGLOBIN CONC 30.8 GM/DL 32.2-35.5 L (BEAKER) (test code = 752) RED CELL DISTRIBUTION WIDTH 17.0 % 11.7-14.4 H (BEAKER) (test code = 412) PLATELET COUNT (BEAKER) (test 214 K/CU MM 150-450 code = 756) MEAN PLATELET VOLUME (BEAKER) 11.6 fL 9.4-12.3 (test code = 754) NUCLEATED RED BLOOD CELLS 0 /100 WBC 0-0 (BEAKER) (test code = 413) NEUTROPHILS RELATIVE PERCENT 68 % (BEAKER) (test code = 429) LYMPHOCYTES RELATIVE PERCENT 19 % (BEAKER) (test code = 430) MONOCYTES RELATIVE PERCENT 9 % (BEAKER) (test code = 431) EOSINOPHILS RELATIVE PERCENT 2 % (BEAKER) (test code = 432) BASOPHILS RELATIVE PERCENT 1 % (BEAKER) (test code = 437) NEUTROPHILS ABSOLUTE COUNT 4.27 K/ L 1.56-6.13 (BEAKER) (test code = 670) LYMPHOCYTES ABSOLUTE COUNT 1.20 K/ L 1.18-3.74 (BEAKER) (test code = 414) MONOCYTES ABSOLUTE COUNT (BEAKER) 0.53 K/ L 0.24-0.36 H (test code = 415) EOSINOPHILS ABSOLUTE COUNT 0.15 K/ L 0.04-0.36 (BEAKER) (test code = 416) BASOPHILS ABSOLUTE COUNT (BEAKER) 0.04 K/ L 0.01-0.08 (test code = 417) IMMATURE GRANULOCYTES-RELATIVE 1 % 0-1 PERCENT (BEAKER) (test code = 2801) POCT-GLUCOSE [id number] 21:26:00 Test Item Value Reference Range Interpretation Comments POC-GLUCOSE METER 162 mg/dL 70-110 H TESTED AT [place] [address] [facility] (test code = ALONDRA CRISOSTOMO 1538) [id number] POCT-GLUCOSE [id number] 19:38:00 Test Item Value Reference Range Interpretation Comments POC-GLUCOSE METER 194 mg/dL 70-110 H TESTED AT [place] [address] ([facility]) (test code = ALONDRA [place]IS[place] 1538) [id number] POCT-GLUCOSE [id number] 13:05:00 Test Item Value Reference Range Interpretation Comments POC-GLUCOSE METER 177 mg/dL 70-110 H TESTED AT [place] [address] ([facility]) (test code = ALONDRA CRIS[place] 1538) [id number] POCT-GLUCOSE [id number] 08:48:00 Test Item Value Reference Range Interpretation Comments POC-GLUCOSE METER 140 mg/dL 70-110 H TESTED AT [facility] 6720 (BEAKER) (test code = ALONDRA Coy [place] 1538) [id number] POCT-GLUCOSE [id number] 21:57:00 Test Item Value Reference Range Interpretation Comments POC-GLUCOSE METER 160 mg/dL 70-110 H TESTED AT [facility] 6720 (BEAKER) (test code = ALONDRA Coy [place] 1538) [id number] POCT-GLUCOSE [id number] 17:35:00 Test Item Value Reference Range Interpretation Comments POC-GLUCOSE METER 107 mg/dL 70-110 TESTED AT [facility] 6720 (BEAKER) (test code = ALONDRA Coy [place] 1538) [id number] POCT-GLUCOSE [id number] 13:02:00 Test Item Value Reference Range Interpretation Comments POC-GLUCOSE METER 167 mg/dL 70-110 H TESTED AT [facility] 6720 (BEAKER) (test code = ALONDRA Coy [place] 1538) [id number] POCT-GLUCOSE [id number] 08:39:00 Test Item Value Reference Range Interpretation Comments POC-GLUCOSE METER 172 mg/dL 70-110 H TESTED AT [facility] 6720 (BEAKER) (test code = ALONDRA Coy [place] 1538) [id number] 06:10:00 Test Item Value Reference Range Interpretation Comments MAGNESIUM (BEAKER) (test code = 1.5 mg/dL 1.6-2.6 L 627) BASIC METABOLIC [id number] 06:10:00 Test Item Value Reference Range Interpretation Comments SODIUM (BEAKER) 140 meq/L 136-145 (test code = 381) POTASSIUM (BEAKER) 3.9 meq/L 3.5-5.1 (test code = 379) CHLORIDE (BEAKER) 105 meq/L 98-107 (test code = 382) CO2 (BEAKER) (test 28 meq/L 22-29 code = 355) BLOOD UREA NITROGEN 12 mg/dL 7-21 (BEAKER) (test code = 354) CREATININE (BEAKER) 0.73 mg/dL 0.57-1.25 (test code = 358) GLUCOSE RANDOM 102 mg/dL 70-105 (BEAKER) (test code = 652) CALCIUM (BEAKER) 9.0 mg/dL 8.4-10.2 (test code = 697) EGFR (BEAKER) (test 93 mL/min/1.73 ESTIMA DMITRY GFR IS code = 1092) sq m NOT ACCURATE CREATININE CLEARANCE IN PREDICTING GLOMERULAR FILTRATION RATE . ESTIMATED GFR I S NOT APPLICABLE FOR DIALYSIS PATIEN TS. CBC W/PLT COUNT & AUTO [id number] 05:12:00 Test Item Value Reference Range Interpretation Comments WHITE BLOOD CELL COUNT (BEAKER) 8.0 K/ L 3.5-10.5 (test code = 775) RED BLOOD CELL COUNT (BEAKER) 2.70 M/ L 3.93-5.22 L (test code = 761) HEMOGLOBIN (BEAKER) (test code = 8.5 GM/DL 11.2-15.7 L 410) HEMATOCRIT (BEAKER) (test code = 27.2 % 34.1-44.9 L 411) MEAN CORPUSCULAR VOLUME (BEAKER) 100.7 fL 79.4-94.8 H (test code = 753) MEAN CORPUSCULAR HEMOGLOBIN 31.5 pg 25.6-32.2 (BEAKER) (test code = 751) MEAN CORPUSCULAR HEMOGLOBIN CONC 31.3 GM/DL 32.2-35.5 L (BEAKER) (test code = 752) RED CELL DISTRIBUTION WIDTH 16.9 % 11.7-14.4 H (BEAKER) (test code = 412) PLATELET COUNT (BEAKER) (test 146 K/CU MM 150-450 L code = 756) MEAN PLATELET VOLUME (BEAKER) 12.2 fL 9.4-12.3 (test code = 754) NUCLEATED RED BLOOD CELLS 0 /100 WBC 0-0 (BEAKER) (test code = 413) NEUTROPHILS RELATIVE PERCENT 75 % (BEAKER) (test code = 429) LYMPHOCYTES RELATIVE PERCENT 15 % (BEAKER) (test code = 430) MONOCYTES RELATIVE PERCENT 7 % (BEAKER) (test code = 431) EOSINOPHILS RELATIVE PERCENT 2 % (BEAKER) (test code = 432) BASOPHILS RELATIVE PERCENT 0 % (BEAKER) (test code = 437) NEUTROPHILS ABSOLUTE COUNT 6.01 K/ L 1.56-6.13 (BEAKER) (test code = 670) LYMPHOCYTES ABSOLUTE COUNT 1.16 K/ L 1.18-3.74 L (BEAKER) (test code = 414) MONOCYTES ABSOLUTE COUNT (BEAKER) 0.59 K/ L 0.24-0.36 H (test code = 415) EOSINOPHILS ABSOLUTE COUNT 0.12 K/ L 0.04-0.36 (BEAKER) (test code = 416) BASOPHILS ABSOLUTE COUNT (BEAKER) 0.03 K/ L 0.01-0.08 (test code = 417) IMMATURE GRANULOCYTES-RELATIVE 1 % 0-1 PERCENT (BEAKER) (test code = 2801) POCT-GLUCOSE [id number] 22:03:00 Test Item Value Reference Range Interpretation Comments POC-GLUCOSE METER 208 mg/dL 70-110 H TESTED AT [place] [address] (BEAKER) (test code = ALONDRA [place] 1538) [id number] POCT-GLUCOSE [id number] 18:20:00 Test Item Value Reference Range Interpretation Comments POC-GLUCOSE METER 146 mg/dL 70-110 H TESTED AT [place] [address] (BEAKER) (test code = ALONDRA [place] 1538) [id number] POCT-GLUCOSE [id number] 12:53:00 Test Item Value Reference Range Interpretation Comments POC-GLUCOSE METER 168 mg/dL 70-110 H TESTED AT [place] [address] (BEAKER) (test code = ALONDRA [place] 1538) [id number] POCT-GLUCOSE [id number] 09:31:00 Test Item Value Reference Range Interpretation Comments POC-GLUCOSE METER 192 mg/dL 70-110 H TESTED AT [place] [address] (BEAKER) (test code = ALONDRA [place] 1538) [id number] 07:27:00 Test Item Value Reference Range Interpretation Comments MAGNESIUM (BEAKER) (test code = 1.6 mg/dL 1.6-2.6 627) BASIC METABOLIC [id number] 07:27:00 Test Item Value Reference Range Interpretation Comments SODIUM (BEAKER) 140 meq/L 136-145 (test code = 381) POTASSIUM (BEAKER) 4.4 meq/L 3.5-5.1 (test code = 379) CHLORIDE (BEAKER) 106 meq/L 98-107 (test code = 382) CO2 (BEAKER) (test 26 meq/L 22-29 code = 355) BLOOD UREA NITROGEN 15 mg/dL 7-21 (BEAKER) (test code = 354) CREATININE (BEAKER) 0.78 mg/dL 0.57-1.25 (test code = 358) GLUCOSE RANDOM 128 mg/dL 70-105 H (BEAKER) (test code = 652) CALCIUM (BEAKER) 9.3 mg/dL 8.4-10.2 (test code = 697) EGFR (BEAKER) (test 86 mL/min/1.73 ESTIMA DMITRY GFR IS code = 1092) sq m NOT ACCURATE CREATININE CLEARANCE IN PREDICTING GLOMERULAR FILTRATION RATE . ESTIMATED GFR I S NOT APPLICABLE FOR DIALYSIS PATIEN TS. CBC W/PLT COUNT & AUTO [id number] 06:06:00 Test Item Value Reference Range Interpretation Comments WHITE BLOOD CELL COUNT (BEAKER) 8.0 K/ L 3.5-10.5 (test code = 775) RED BLOOD CELL COUNT (BEAKER) 2.86 M/ L 3.93-5.22 L (test code = 761) HEMOGLOBIN (BEAKER) (test code = 8.9 GM/DL 11.2-15.7 L 410) HEMATOCRIT (BEAKER) (test code = 28.9 % 34.1-44.9 L 411) MEAN CORPUSCULAR VOLUME (BEAKER) 101.0 fL 79.4-94.8 H (test code = 753) MEAN CORPUSCULAR HEMOGLOBIN 31.1 pg 25.6-32.2 (BEAKER) (test code = 751) MEAN CORPUSCULAR HEMOGLOBIN CONC 30.8 GM/DL 32.2-35.5 L (BEAKER) (test code = 752) RED CELL DISTRIBUTION WIDTH 16.8 % 11.7-14.4 H (BEAKER) (test code = 412) PLATELET COUNT (BEAKER) (test 142 K/CU MM 150-450 L code = 756) MEAN PLATELET VOLUME (BEAKER) 12.5 fL 9.4-12.3 H (test code = 754) NUCLEATED RED BLOOD CELLS 0 /100 WBC 0-0 (BEAKER) (test code = 413) NEUTROPHILS RELATIVE PERCENT 74 % (BEAKER) (test code = 429) LYMPHOCYTES RELATIVE PERCENT 16 % (BEAKER) (test code = 430) MONOCYTES RELATIVE PERCENT 7 % (BEAKER) (test code = 431) EOSINOPHILS RELATIVE PERCENT 2 % (BEAKER) (test code = 432) BASOPHILS RELATIVE PERCENT 0 % (BEAKER) (test code = 437) NEUTROPHILS ABSOLUTE COUNT 5.96 K/ L 1.56-6.13 (BEAKER) (test code = 670) LYMPHOCYTES ABSOLUTE COUNT 1.24 K/ L 1.18-3.74 (BEAKER) (test code = 414) MONOCYTES ABSOLUTE COUNT (BEAKER) 0.58 K/ L 0.24-0.36 H (test code = 415) EOSINOPHILS ABSOLUTE COUNT 0.13 K/ L 0.04-0.36 (BEAKER) (test code = 416) BASOPHILS ABSOLUTE COUNT (BEAKER) 0.03 K/ L 0.01-0.08 (test code = 417) IMMATURE GRANULOCYTES-RELATIVE 1 % 0-1 PERCENT (BEAKER) (test code = 2801) POCT-GLUCOSE [id number] 22:49:00 Test Item Value Reference Range Interpretation Comments POC-GLUCOSE METER 214 mg/dL 70-110 H TESTED AT [place] [address] (BEAKER) (test code = [facility] 1538) [id number] POCT-GLUCOSE [id number] 22:48:00 Test Item Value Reference Range Interpretation Comments POC-GLUCOSE METER 247 mg/dL 70-110 H [facility] AT [place] [address] [facility] (test code = [facility] 1538) [id number] POCT-GLUCOSE [id number] 17:37:00 Test Item Value Reference Range Interpretation Comments POC-GLUCOSE METER 185 mg/dL 70-110 H TESTED AT [place] [address] ([facility] (test code = [facility] 1538) [id number] 15:08:00 Test Item Value Reference Range Interpretation Comments MAGNESIUM (BEAKER) (test code = 1.7 mg/dL 1.6-2.6 627) BASIC METABOLIC [id number] 15:08:00 Test Item Value Reference Range Interpretation Comments SODIUM (BEAKER) 141 meq/L 136-145 (test code = 381) POTASSIUM (BEAKER) 4.1 meq/L 3.5-5.1 (test code = 379) CHLORIDE (BEAKER) 108 meq/L 98-107 H (test code = 382) CO2 (BEAKER) (test 23 meq/L 22-29 code = 355) BLOOD UREA NITROGEN 17 mg/dL 7-21 (BEAKER) (test code = 354) CREATININE (BEAKER) 0.87 mg/dL 0.57-1.25 (test code = 358) GLUCOSE RANDOM 143 mg/dL 70-105 H (BEAKER) (test code = 652) CALCIUM (BEAKER) 9.5 mg/dL 8.4-10.2 (test code = 697) EGFR (BEAKER) (test 76 mL/min/1.73 ESTIMA DMITRY GFR IS code = 1092) sq m NOT ACCURATE CREATININE CLEARANCE IN PREDICTING GLOMERULAR FILTRATION RATE . ESTIMATED GFR I S NOT APPLICABLE FOR DIALYSIS PATIEN TS. CBC (HEMOGRAM ONLY)2018-12-21 15:00:00 Test Item Value Reference Range Interpretation Comments WHITE BLOOD CELL COUNT (BEAKER) 9.0 K/ L 3.5-10.5 (test code = 775) RED BLOOD CELL COUNT (BEAKER) 3.01 M/ L 3.93-5.22 L (test code = 761) HEMOGLOBIN (BEAKER) (test code = 9.5 GM/DL 11.2-15.7 L 410) HEMATOCRIT (BEAKER) (test code = 30.6 % 34.1-44.9 L 411) MEAN CORPUSCULAR VOLUME (BEAKER) 101.7 fL 79.4-94.8 H (test code = 753) MEAN CORPUSCULAR HEMOGLOBIN 31.6 pg 25.6-32.2 (BEAKER) (test code = 751) MEAN CORPUSCULAR HEMOGLOBIN CONC 31.0 GM/DL 32.2-35.5 L (BEAKER) (test code = 752) RED CELL DISTRIBUTION WIDTH 17.0 % 11.7-14.4 H (BEAKER) (test code = 412) PLATELET COUNT (BEAKER) (test 131 K/CU MM 150-450 L code = 756) MEAN PLATELET VOLUME (BEAKER) 12.6 fL 9.4-12.3 H (test code = 754) NUCLEATED RED BLOOD CELLS 1 /100 WBC 0-0 H (BEAKER) (test code = 413) POCT-GLUCOSE [id number] 12:49:00 Test Item Value Reference Range Interpretation Comments POC-GLUCOSE METER 182 mg/dL 70-110 H TESTED AT [facility] 6720 (BEAKER) (test code = [facility] 1538) [id number] POCT-GLUCOSE [id number] 08:49:00 Test Item Value Reference Range Interpretation Comments POC-GLUCOSE METER 111 mg/dL 70-110 H TESTED AT [place] [address] ([facility]) (test code = [facility] 1538) [id number] POCT-GLUCOSE [id number] 22:38:00 Test Item Value Reference Range Interpretation Comments POC-GLUCOSE METER 225 mg/dL 70-110 H TESTED AT [place] [address] ([facility]) (test code = ALONDRA Coy [facility] 1538) [id number] POCT-GLUCOSE [id number] 17:12:00 Test Item Value Reference Range Interpretation Comments POC-GLUCOSE METER 194 mg/dL 70-110 H TESTED AT [place] [address] ([facility]) (test code = ALONDRA Coy [facility] 1538) [address] POCT-GLUCOSE [id number] 14:19:00 Test Item Value Reference Range Interpretation Comments POC-GLUCOSE METER 179 mg/dL 70-110 H TESTED AT [place] [address] ([facility]) (test code = ALONDRA Coy [facility] 1538) [address] RAD, CHEST, 1 VIEW, NON [id number] 12:01:00Reason for exam:->short of breathShould this be performed at the bedside?->YesFINAL REPORT TECHNIQUE: Frontal chest radiographs dated 12/20/2018. CLINICAL H ISTORY: Shortness of breath COMPARISON STUDY: Chest radiograph dated 12/18/2018 IMPRESSION:Small leftpleural effusion with associated atelectasis. Right lung is clear. No pneumothorax. Cardiomediastinal silhouette is normal in size. No pulmonary edema. Sternotomy wires are intact and well aligned. Bones are osteopenic. Signed: Flor Shipman Verified Date/Time: 12/20/2018 12:01:09 Reading Location: [facility] Radiology Reading Room POCT-GLUCOSE METER 2018-12-20 10:07:00 Test Item Value Reference Range Interpretation Comments POC-GLUCOSE METER 169 mg/dL 70-110 H TESTED AT [place] [address] (BEAKER) (test code = ALONDRA [place] 1538) [address] [id number] 08:40:00 Test Item Value Reference Range Interpretation Comments MAGNESIUM (BEAKER) (test code = 1.5 mg/dL 1.6-2.6 L 627) BASIC METABOLIC [id number] 08:40:00 Test Item Value Reference Range Interpretation Comments SODIUM (BEAKER) 141 meq/L 136-145 (test code = 381) POTASSIUM (BEAKER) 4.1 meq/L 3.5-5.1 (test code = 379) CHLORIDE (BEAKER) 106 meq/L 98-107 (test code = 382) CO2 (BEAKER) (test 28 meq/L 22-29 code = 355) BLOOD UREA NITROGEN 13 mg/dL 7-21 (BEAKER) (test code = 354) CREATININE (BEAKER) 0.84 mg/dL 0.57-1.25 (test code = 358) GLUCOSE RANDOM 142 mg/dL 70-105 H (BEAKER) (test code = 652) CALCIUM (BEAKER) 9.6 mg/dL 8.4-10.2 (test code = 697) EGFR (BEAKER) (test 79 mL/min/1.73 ESTIMA DMITRY GFR IS code = 1092) sq m NOT ACCURATE CREATININE CLEARANCE IN PREDICTING GLOMERULAR FILTRATION RATE . ESTIMATED GFR I S NOT APPLICABLE FOR DIALYSIS PATIEN TS. CBC (HEMOGRAM ONLY)2018-12-20 08:24:00 Test Item Value Reference Range Interpretation Comments WHITE BLOOD CELL COUNT (BEAKER) 9.7 K/ L 3.5-10.5 (test code = 775) RED BLOOD CELL COUNT (BEAKER) 3.10 M/ L 3.93-5.22 L (test code = 761) HEMOGLOBIN (BEAKER) (test code = 9.8 GM/DL 11.2-15.7 L 410) HEMATOCRIT (BEAKER) (test code = 30.8 % 34.1-44.9 L 411) MEAN CORPUSCULAR VOLUME (BEAKER) 99.4 fL 79.4-94.8 H (test code = 753) MEAN CORPUSCULAR HEMOGLOBIN 31.6 pg 25.6-32.2 (BEAKER) (test code = 751) MEAN CORPUSCULAR HEMOGLOBIN CONC 31.8 GM/DL 32.2-35.5 L (BEAKER) (test code = 752) RED CELL DISTRIBUTION WIDTH 17.1 % 11.7-14.4 H (AKER) (test code = 412) PLATELET COUNT (AKER) (test 110 K/CU MM 150-450 L code = 756) MEAN PLATELET VOLUME (BEAKER) 13.1 fL 9.4-12.3 H (test code = 754) NUCLEATED RED BLOOD CELLS 0 /100 WBC 0-0 (AKER) (test code = 413) POCT-GLUCOSE [id number] 22:11:00 Test Item Value Reference Range Interpretation Comments POC-GLUCOSE METER 207 mg/dL 70-110 H TESTED AT [place] [address] ([facility]) (test code = ALONDRA CRISOSTOMO 1538) [address] POCT-GLUCOSE [id number] 17:51:00 Test Item Value Reference Range Interpretation Comments POC-GLUCOSE METER 197 mg/dL 70-110 H TESTED AT [place] [address] ([facility]) (test code = ALONDRA [place] 1538) [address] POCT-GLUCOSE [id number] 12:26:00 Test Item Value Reference Range Interpretation Comments POC-GLUCOSE METER 238 mg/dL 70-110 H TESTED AT [place] [address] ([facility]) (test code = ALONDRA [place] 1538) [address] POCT-GLUCOSE [id number] 12:00:00 Test Item Value Reference Range Interpretation Comments POC-GLUCOSE METER 207 mg/dL 70-110 H TESTED AT [place] [address] ([facility]) (test code = ALONDRA [place] 1538) [address] [id number] 07:04:00 Test Item Value Reference Range Interpretation Comments PHOSPHORUS (BEAKER) (test code = 2.9 mg/dL 2.3-4.7 604) [id number] 07:04:00 Test Item Value Reference Range Interpretation Comments MAGNESIUM (BEAKER) (test code = 1.8 mg/dL 1.6-2.6 627) BASIC METABOLIC [id number] 07:04:00 Test Item Value Reference Range Interpretation Comments SODIUM (BEAKER) 143 meq/L 136-145 (test code = 381) POTASSIUM (BEAKER) 4.3 meq/L 3.5-5.1 (test code = 379) CHLORIDE (BEAKER) 109 meq/L 98-107 H (test code = 382) CO2 (BEAKER) (test 23 meq/L 22-29 code = 355) BLOOD UREA NITROGEN 13 mg/dL 7-21 (BEAKER) (test code = 354) CREATININE (BEAKER) 0.88 mg/dL 0.57-1.25 (test code = 358) GLUCOSE RANDOM 168 mg/dL 70-105 H (BEAKER) (test code = 652) CALCIUM (BEAKER) 10.1 mg/dL 8.4-10.2 (test code = 697) EGFR (BEAKER) (test 75 mL/min/1.73 ESTIMA DMITRY GFR IS code = 1092) sq m NOT ACCURATE CREATININE CLEARANCE IN PREDICTING GLOMERULAR FILTRATION RATE . ESTIMATED GFR I S NOT APPLICABLE FOR DIALYSIS PATIEN TS. CBC (HEMOGRAM ONLY)2018-12-19 06:44:00 Test Item Value Reference Range Interpretation Comments WHITE BLOOD CELL COUNT (BEAKER) 13.1 K/ L 3.5-10.5 H (test code = 775) RED BLOOD CELL COUNT (BEAKER) 3.42 M/ L 3.93-5.22 L (test code = 761) HEMOGLOBIN (BEAKER) (test code = 10.7 GM/DL 11.2-15.7 L 410) HEMATOCRIT (BEAKER) (test code = 33.7 % 34.1-44.9 L 411) MEAN CORPUSCULAR VOLUME (BEAKER) 98.5 fL 79.4-94.8 H (test code = 753) MEAN CORPUSCULAR HEMOGLOBIN 31.3 pg 25.6-32.2 (BEAKER) (test code = 751) MEAN CORPUSCULAR HEMOGLOBIN CONC 31.8 GM/DL 32.2-35.5 L (BEAKER) (test code = 752) RED CELL DISTRIBUTION WIDTH 17.4 % 11.7-14.4 H (BEAKER) (test code = 412) PLATELET COUNT (BEAKER) (test 107 K/CU MM 150-450 L code = 756) MEAN PLATELET VOLUME (BEAKER) 12.3 fL 9.4-12.3 (test code = 754) NUCLEATED RED BLOOD CELLS 0 /100 WBC 0-0 (BEAKER) (test code = 413) POCT-GLUCOSE [id number] 21:38:00 Test Item Value Reference Range Interpretation Comments POC-GLUCOSE METER 204 mg/dL 70-110 H TESTED AT [place] [address] ([facility]) (test code = ALONDRA Coy [facility] 1538) [address] POCT-GLUCOSE [id number] 12:18:00 Test Item Value Reference Range Interpretation Comments POC-GLUCOSE METER 158 mg/dL 70-110 H TEST[facility] AT [place] [address] [facility] (test code = ALONDRA Coy [facility] 1538) [address] POCT-GLUCOSE [id number] 09:50:00 Test Item Value Reference Range Interpretation Comments POC-GLUCOSE METER 153 mg/dL 70-110 H TESTED AT [place] [address] ([facility]) ([facility] 1538) [address] POCT-GLUCOSE [id number] 09:50:00 Test Item Value Reference Range Interpretation Comments POC-GLUCOSE METER 132 mg/dL 70-110 H TESTED AT [place] [address] ([facility]) (test code = ALONDRA Coy [facility] 1538) [address] POCT-GLUCOSE [id number] 07:48:00 Test Item Value Reference Range Interpretation Comments POC-GLUCOSE METER 98 mg/dL 70-110 TESTED AT [place] [address] ([facility]) (test code = [facility] Zbigniew [facility] [id number] 1538) POCT-GLUCOSE [id number] 07:48:00 Test Item Value Reference Range Interpretation Comments POC-GLUCOSE METER 101 mg/dL 70-110 TESTED AT [place] [address] [facility] (test code = [facility] Zbigniew [facility] 1538) [address] [id number] 05:44:00 Test Item Value Reference Range Interpretation Comments PHOSPHORUS (BEAKER) (test code = 3.7 mg/dL 2.3-4.7 604) [id number] 05:44:00 Test Item Value Reference Range Interpretation Comments MAGNESIUM (BEAKER) (test code = 2.4 mg/dL 1.6-2.6 627) BASIC METABOLIC [id number] 05:44:00 Test Item Value Reference Range Interpretation Comments SODIUM (BEAKER) 144 meq/L 136-145 (test code = 381) POTASSIUM (BEAKER) 4.3 meq/L 3.5-5.1 (test code = 379) CHLORIDE (BEAKER) 115 meq/L 98-107 H (test code = 382) CO2 (BEAKER) (test 21 meq/L 22-29 L code = 355) BLOOD UREA NITROGEN 16 mg/dL 7-21 (BEAKER) (test code = 354) CREATININE (BEAKER) 0.99 mg/dL 0.57-1.25 (test code = 358) GLUCOSE RANDOM 107 mg/dL 70-105 H (BEAKER) (test code = 652) CALCIUM (BEAKER) 9.0 mg/dL 8.4-10.2 (test code = 697) EGFR (BEAKER) (test 66 mL/min/1.73 ESTIMA DMITRY GFR IS code = 1092) sq m NOT ACCURATE CREATININE CLEARANCE IN PREDICTING GLOMERULAR FILTRATION RATE . ESTIMATED GFR I S NOT APPLICABLE FOR DIALYSIS PATIEN ANGE. [id number] 05:26:00 Test Item Value Reference Range Interpretation Comments PARTIAL THROMBOPLASTIN TIME 32.9 seconds 22.5-36.0 (BEAKER) (test code = 760) CBC (HEMOGRAM ONLY)2018-12-18 05:20:00 Test Item Value Reference Range Interpretation Comments WHITE BLOOD CELL COUNT (BEAKER) 11.6 K/ L 3.5-10.5 H (test code = 775) RED BLOOD CELL COUNT (BEAKER) 3.08 M/ L 3.93-5.22 L (test code = 761) HEMOGLOBIN (BEAKER) (test code = 9.7 GM/DL 11.2-15.7 L 410) HEMATOCRIT (BEAKER) (test code = 29.7 % 34.1-44.9 L 411) MEAN CORPUSCULAR VOLUME (BEAKER) 96.4 fL 79.4-94.8 H (test code = 753) MEAN CORPUSCULAR HEMOGLOBIN 31.5 pg 25.6-32.2 (BEAKER) (test code = 751) MEAN CORPUSCULAR HEMOGLOBIN CONC 32.7 GM/DL 32.2-35.5 (BEAKER) (test code = 752) RED CELL DISTRIBUTION WIDTH 17.8 % 11.7-14.4 H (BEAKER) (test code = 412) PLATELET COUNT (BEAKER) (test 102 K/CU MM 150-450 L code = 756) MEAN PLATELET VOLUME (BEAKER) 12.1 fL 9.4-12.3 (test code = 754) NUCLEATED RED BLOOD CELLS 0 /100 WBC 0-0 (BEAKER) (test code = 413) BLOOD GAS, [id number] 05:10:00 Test Item Value Reference Range Interpretation Comments PH ARTERIAL (BEAKER) (test code = 7.41 7.35-7.45 383) PCO2 ARTERIAL (BEAKER) (test code 34 mmHg 35-45 L = 384) PO2 ARTERIAL (BEAKER) (test code 242 mmHg 80-90 H = 385) O2 SATURATION ARTERIAL (BEAKER) 99.6 % 96.0-97.0 H (test code = 386) HCO3 ARTERIAL (BEAKER) (test code 21 mmol/L 21-29 = 388) BASE EXCESS ARTERIAL (BEAKER) -3.1 mmol/L -2.0-3.0 L (test code = 387) PATIENT TEMPERATURE (BEAKER) 36.9 C (test code = 1818) FIO2 (BEAKER) (test code = 1819) 60.0 % RAD, CHEST, 1 VIEW, NON [id number] 04:43:00while patient is intubated or has chest tubes.Reason for exam:->Status post CV SurgeryShould thisbe performed at the bedside?->YesFINAL REPORT Chest one view. Clinical history: Status post CV Surgery Comparison: Chest radiograph 12/17/2018 Technique: A single frontal view of the chest was obtained. Findings:There has been interval removal of endotracheal and feeding tubes. There is a left chest tube. There is a mediastinal drain. The cardiomediastinal contours are stable. There improved aeration in the bilateral lungs with residual bilateral lower lobe opacities, left greater than right which may represent pneumonia/atelectasis. There is no definite pleural effusion. There is no pneumothorax. Signed: Nicolette Hamilton MDReport Verified Date/Time: 12/18/2018 04:43:02 Reading Location: [address] Reading Room BLOOD GAS, [id number] 02:48:00 Test Item Value Reference Range Interpretation Comments PH ARTERIAL (BEAKER) (test code = 7.39 7.35-7.45 383) PCO2 ARTERIAL (BEAKER) (test code 36 mmHg 35-45 = 384) PO2 ARTERIAL (BEAKER) (test code 221 mmHg 80-90 H = 385) O2 SATURATION ARTERIAL (BEAKER) 99.5 % 96.0-97.0 H (test code = 386) HCO3 ARTERIAL (BEAKER) (test code 21 mmol/L 21-29 = 388) BASE EXCESS ARTERIAL (BEAKER) -3.5 mmol/L -2.0-3.0 L (test code = 387) PATIENT TEMPERATURE (BEAKER) 36.7 C (test code = 1818) FIO2 (BEAKER) (test code = 1819) 40.0 % [id number] 23:12:00 Test Item Value Reference Range Interpretation Comments MAGNESIUM (BEAKER) (test code = 2.4 mg/dL 1.6-2.6 627) Check Serum Magnesium level 2 hours after IV magnesium replacement.BLOOD GAS, [id number] 23:00:00 Test Item Value Reference Range Interpretation Comments PH ARTERIAL (BEAKER) (test code = 7.40 7.35-7.45 383) PCO2 ARTERIAL (BEAKER) (test code 35 mmHg 35-45 = 384) PO2 ARTERIAL (BEAKER) (test code 139 mmHg 80-90 H = 385) O2 SATURATION ARTERIAL (BEAKER) 98.8 % 96.0-97.0 H (test code = 386) HCO3 ARTERIAL (BEAKER) (test code 22 mmol/L 21-29 = 388) BASE EXCESS ARTERIAL (BEAKER) -2.8 mmol/L -2.0-3.0 L (test code = 387) PATIENT TEMPERATURE (BEAKER) 36.9 C (test code = 1818) FIO2 (BEAKER) (test code = 1819) 40.0 % LACTIC ACID, ARTERIAL, WHOLE [id number] 20:01:00 Test Item Value Reference Range Interpretation Comments LACTATE BLOOD ARTERIAL (2) 1.5 mmol/L 0.5-2.2 (BEAKER) (test code = 2874) [id number] 19:59:00 Test Item Value Reference Range Interpretation Comments MAGNESIUM (BEAKER) (test code = 1.7 mg/dL 1.6-2.6 627) SODIUM NA-STAT [id number] 19:40:00 Test Item Value Reference Range Interpretation Comments SODIUM (BEAKER) (test code = 381) 139 meq/L 135-148 POTASSIUM-STAT [id number] 19:40:00 Test Item Value Reference Range Interpretation Comments POTASSIUM (BEAKER) (test code = 4.2 meq/L 3.6-5.5 379) OXYGEN SATURATION, [id number] 19:40:00 Test Item Value Reference Range Interpretation Comments O2 SATURATION (MEASURED) (BEAKER) 61.6 % (test code = 1455) CALCIUM, [id number] 19:40:00 Test Item Value Reference Range Interpretation Comments CALCIUM IONIZED (BEAKER) (test 1.12 mmol/L 1.12-1.27 code = 698) PH, BLOOD (BEAKER) (test code = 7.48 1810) BLOOD GAS, [id number] 19:40:00 Test Item Value Reference Range Interpretation Comments PH ARTERIAL (BEAKER) (test code = 7.48 7.35-7.45 H 383) PCO2 ARTERIAL (BEAKER) (test code 27 mmHg 35-45 L = 384) PO2 ARTERIAL (BEAKER) (test code 158 mmHg 80-90 H = 385) O2 SATURATION ARTERIAL (BEAKER) 99.2 % 96.0-97.0 H (test code = 386) HCO3 ARTERIAL (BEAKER) (test code 19 mmol/L 21-29 L = 388) BASE EXCESS ARTERIAL (BEAKER) -2.9 mmol/L -2.0-3.0 L (test code = 387) PATIENT TEMPERATURE (BEAKER) 37.4 C (test code = 1818) FIO2 (BEAKER) (test code = 1819) 40.0 % GLUCOSE-STAT [id number] 19:40:00 Test Item Value Reference Range Interpretation Comments GLUCOSE RANDOM (BEAKER) (test code 136 mg/dL 70-110 H = 652) HGB/HCT (H&H) - STAT [id number] 19:40:00 Test Item Value Reference Range Interpretation Comments HEMOGLOBIN (BEAKER) (test code = 10.8 g/dL 12.0-15.0 L 410) HEMATOCRIT (BEAKER) (test code = 32.0 % 36.0-45.0 L 411) POCT-GLUCOSE [id number] 18:42:00 Test Item Value Reference Range Interpretation Comments POC-GLUCOSE METER 138 mg/dL 70-110 H TESTED AT [facility] 6720 (BEAKER) (test code = ALONDRA Coy [place] 1538) [address] POCT-GLUCOSE [id number] 17:37:00 Test Item Value Reference Range Interpretation Comments POC-GLUCOSE METER 147 mg/dL 70-110 H TESTED AT [facility] 6720 (BEAKER) (test code = ALONDRA Coy [facility] 1538) [address] CBC W/PLT COUNT & AUTO [id number] 16:05:00 Test Item Value Reference Range Interpretation Comments WHITE BLOOD CELL COUNT 4.7 K/ L 3.5-10.5 (BEAKER) (test code = 775) RED BLOOD CELL COUNT 4.11 M/ L 3.93-5.22 (BEAKER) (test code = 761) HEMOGLOBIN (BEAKER) 12.8 GM/DL 11.2-15.7 (test code = 410) HEMATOCRIT (BEAKER) 40.0 % 34.1-44.9 (test code = 411) MEAN CORPUSCULAR 97.3 fL 79.4-94.8 H Discordant result VOLUME (BEAKER) (test compar ed to previous code = 753) result; clinica l correlation req uired. MEAN CORPUSCULAR 31.1 pg 25.6-32.2 HEMOGLOBIN (BEAKER) (test code = 751) MEAN CORPUSCULAR 32.0 GM/DL 32.2-35.5 L HEMOGLOBIN CONC (BEAKER) (test code = 752) RED CELL DISTRIBUTION 17.1 % 11.7-14.4 H WIDTH (BEAKER) (test code = 412) PLATELET COUNT 84 K/CU MM 150-450 L Discordant re sult (BEAKER) (test code = compar ed to previous 756) result; clinica l correlation req uired. MEAN PLATELET VOLUME 12.3 fL 9.4-12.3 (BEAKER) (test code = 754) NUCLEATED RED BLOOD 0 /100 WBC 0-0 CELLS (BEAKER) (test code = 413) NEUTROPHILS RELATIVE 87 % PERCENT (BEAKER) (test code = 429) LYMPHOCYTES RELATIVE 9 % PERCENT (BEAKER) (test code = 430) MONOCYTES RELATIVE 2 % PERCENT (BEAKER) (test code = 431) EOSINOPHILS RELATIVE 0 % PERCENT (BEAKER) (test code = 432) BASOPHILS RELATIVE 0 % PERCENT (BEAKER) (test code = 437) NEUTROPHILS ABSOLUTE 4.07 K/ L 1.56-6.13 COUNT (BEAKER) (test code = 670) LYMPHOCYTES ABSOLUTE 0.41 K/ L 1.18-3.74 L COUNT (BEAKER) (test code = 414) MONOCYTES ABSOLUTE 0.08 K/ L 0.24-0.36 L COUNT (BEAKER) (test code = 415) EOSINOPHILS ABSOLUTE 0.02 K/ L 0.04-0.36 L COUNT (BEAKER) (test code = 416) BASOPHILS ABSOLUTE 0.01 K/ L 0.01-0.08 COUNT (BEAKER) (test code = 417) IMMATURE 2 % 0-1 H GRANULOCYTES-RELATIVE PERCENT (BEAKER) (test code = 2801) (CELLAVISION MANUAL DIFF)2018-12-17 16:05:00 Test Item Value Reference Range Interpretation Comments TOTAL COUNTED (BEAKER) (test code = 1351) WBC MORPHOLOGY (BEAKER) (test code = Normal 487) PLT MORPHOLOGY (BEAKER) (test code = Normal 486) POLYCHROMATOPHILLIC RBCS(BEAKER) (test 1+ few code = 478) ANISOCYTOSIS (BEAKER) (test code = 1+ few 961) [id number] 15:49:00 Test Item Value Reference Range Interpretation Comments ACTIVATED CLOTTING TIME 103 sec TEST ED AT [place] [address] [facility] (test code = ALONDRA Coy [facility] 441) [address] [id number] 15:49:00 Test Item Value Reference Range Interpretation Comments ACTIVATED CLOTTING TIME 400 sec TEST ED AT [place] [address] (BEAKER) (test code = ALONDRA Coy [place] 441) [address] [id number] 15:49:00 Test Item Value Reference Range Interpretation Comments ACTIVATED CLOTTING TIME 373 sec TEST ED AT [place] [address] (BEAKER) (test code = ALONDRA Coy [place] 441) [address] [id number] 15:49:00 Test Item Value Reference Range Interpretation Comments ACTIVATED CLOTTING TIME 450 sec TEST ED AT [place] [address] ([facility]) (test code = ALONDRA [place] 441) [address] [id number] 15:49:00 Test Item Value Reference Range Interpretation Comments ACTIVATED CLOTTING TIME 389 sec TEST ED AT [place] [address] ([facility]) (test code = ALONDRA Coy [place] 441) [address] [id number] 15:49:00 Test Item Value Reference Range Interpretation Comments ACTIVATED CLOTTING TIME 340 sec TEST ED AT [place] [address] ([facility]) (test code = ALONDRA Coy [place] 441) [address] POCT-GLUCOSE [id number] 15:27:00 Test Item Value Reference Range Interpretation Comments POC-GLUCOSE METER 131 mg/dL 70-110 H TESTED AT [place] [address] ([facility]) (test code = ALONDRA Coy [place] 1538) [address] LACTIC ACID, ARTERIAL, WHOLE [id number] 15:19:00 Test Item Value Reference Range Interpretation Comments LACTATE BLOOD ARTERIAL (2) 2.3 mmol/L 0.5-2.2 H (BEAKER) (test code = 2874) [id number] 15:16:00 Test Item Value Reference Range Interpretation Comments MAGNESIUM (BEAKER) (test code = 2.8 mg/dL 1.6-2.6 H 627) OXYGEN SATURATION, [id number] 14:57:00 Test Item Value Reference Range Interpretation Comments O2 SATURATION (MEASURED) (BEAKER) 51.5 % (test code = 1455) SODIUM NA-STAT [id number] 14:56:00 Test Item Value Reference Range Interpretation Comments SODIUM (BEAKER) (test code = 381) 140 meq/L 135-148 POTASSIUM-STAT [id number] 14:56:00 Test Item Value Reference Range Interpretation Comments POTASSIUM (BEAKER) (test code = 3.9 meq/L 3.6-5.5 379) HGB/HCT (H&H) - STAT [id number] 14:56:00 Test Item Value Reference Range Interpretation Comments HEMOGLOBIN (BEAKER) (test code = 12.3 g/dL 12.0-15.0 410) HEMATOCRIT (BEAKER) (test code = 36.0 % 36.0-45.0 411) BLOOD GAS, [id number] 14:56:00 Test Item Value Reference Range Interpretation Comments PH ARTERIAL (BEAKER) (test code = 7.42 7.35-7.45 383) PCO2 ARTERIAL (BEAKER) (test code 33 mmHg 35-45 L = 384) PO2 ARTERIAL (BEAKER) (test code 96 mmHg 80-90 H = 385) O2 SATURATION ARTERIAL (BEAKER) 97.9 % 96.0-97.0 H (test code = 386) HCO3 ARTERIAL (BEAKER) (test code 22 mmol/L 21-29 = 388) BASE EXCESS ARTERIAL (BEAKER) -3.0 mmol/L -2.0-3.0 L (test code = 387) PATIENT TEMPERATURE (BEAKER) 35.0 C (test code = 1818) FIO2 (BEAKER) (test code = 1819) 60.0 % GLUCOSE-STAT [id number] 14:56:00 Test Item Value Reference Range Interpretation Comments GLUCOSE RANDOM (BEAKER) (test code 141 mg/dL 70-110 H = 652) BLOOD GAS, [id number] 13:28:00 Test Item Value Reference Range Interpretation Comments PH ARTERIAL (BEAKER) (test code = 7.30 7.35-7.45 L 383) PCO2 ARTERIAL (BEAKER) (test code 42 mmHg 35-45 = 384) PO2 ARTERIAL (BEAKER) (test code 74 mmHg 80-90 L = 385) O2 SATURATION ARTERIAL (BEAKER) 94.6 % 96.0-97.0 L (test code = 386) HCO3 ARTERIAL (BEAKER) (test code 21 mmol/L 21-29 = 388) BASE EXCESS ARTERIAL (BEAKER) -5.8 mmol/L -2.0-3.0 L (test code = 387) PATIENT TEMPERATURE (BEAKER) 35.5 C (test code = 1818) FIO2 (BEAKER) (test code = 1819) 60.0 % RAD, CHEST, 1 VIEW, NON [id number] 12:53:00Reason for exam:->PostopFINAL REPORT Chest x-ray Clinical History: Postop Comparison: November 28, 2018Views: 1 Chest x-ray:The cardiac and mediastinal silhouettes are prominent. There is no evidence ofa pneumothorax. There is no evidence of a large pleural effusion. There is no evidence of overt cardiac failure. The visible regional skeleton is intact. There is evidence of a left lower lobe retrocardiac space focal parenchymal opacity. Interval placement of [...] expected location of the leftbrachiocephalic vein. Signed: Risa Tyler Verified Date/Time: 12/17/2018 12:53:38 Reading Location: [facility] Consult Reading Room Electronically signed by: RISA TYLER M.D. on 12/17 12:53 PMPROTHROMBIN TIME/[id number] 12:37:00 Test Item Value Reference Range Interpretation Comments PROTIME (BEAKER) (test code = 17.4 seconds 11.7-14.7 H 759) INR (BEAKER) (test code = 370) 1.4 <=5.9 RECOMMENDED COUMADIN/WARFARIN INR THERAPY RANGESSTANDARD DOSE: 2.0 - 3.0 Includes: PROPHYLAXIS forvenous thrombosis, systemic embolization; TREATMENT for venous thrombosis and/or pulmonary embolus.HIGH RISK: Target INR is 2.5-3.5 for patients with mechanical heart valves.[id number] 12:37:00 Test Item Value Reference Range Interpretation Comments FIBRINOGEN LEVEL (BEAKER) (test 238 mg/dl 225-434 code = 658) [id number] 12:37:00 Test Item Value Reference Range Interpretation Comments PARTIAL THROMBOPLASTIN TIME 33.3 seconds 22.5-36.0 (BEAKER) (test code = 760) [id number] 12:37:00 Test Item Value Reference Range Interpretation Comments MAGNESIUM (BEAKER) (test code = 1.4 mg/dL 1.6-2.6 L 627) BASIC METABOLIC [id number] 12:37:00 Test Item Value Reference Range Interpretation Comments SODIUM (BEAKER) 142 meq/L 136-145 (test code = 381) POTASSIUM (BEAKER) 4.2 meq/L 3.5-5.1 (test code = 379) CHLORIDE (BEAKER) 113 meq/L 98-107 H (test code = 382) CO2 (BEAKER) (test 22 meq/L 22-29 code = 355) BLOOD UREA NITROGEN 15 mg/dL 7-21 (BEAKER) (test code = 354) CREATININE (BEAKER) 0.86 mg/dL 0.57-1.25 (test code = 358) GLUCOSE RANDOM 195 mg/dL 70-105 H (BEAKER) (test code = 652) CALCIUM (BEAKER) 8.5 mg/dL 8.4-10.2 (test code = 697) EGFR (BEAKER) (test 77 mL/min/1.73 ESTIMA DMITRY GFR IS code = 1092) sq m NOT ACCURATE CREATININE CLEARANCE IN PREDICTING GLOMERULAR FILTRATION RATE . ESTIMATED GFR I S NOT APPLICABLE FOR DIALYSIS PATIEN TS. LACTIC ACID, ARTERIAL, WHOLE [id number] 12:35:00 Test Item Value Reference Range Interpretation Comments LACTATE BLOOD ARTERIAL (2) 1.5 mmol/L 0.5-2.2 (BEAKER) (test code = 2874) CALCIUM, [id number] 12:32:00 Test Item Value Reference Range Interpretation Comments CALCIUM IONIZED (BEAKER) (test 1.19 mmol/L 1.12-1.27 code = 698) PH, BLOOD (BEAKER) (test code = 7.28 1810) OXYGEN SATURATION, [id number] 12:32:00 Test Item Value Reference Range Interpretation Comments O2 SATURATION (MEASURED) (BEAKER) 49.7 % (test code = 1455) BLOOD GAS, [id number] 12:31:00 Test Item Value Reference Range Interpretation Comments PH ARTERIAL (BEAKER) (test code = 7.31 7.35-7.45 L 383) PCO2 ARTERIAL (BEAKER) (test code 44 mmHg 35-45 = 384) PO2 ARTERIAL (BEAKER) (test code 53 mmHg 80-90 L = 385) O2 SATURATION ARTERIAL (BEAKER) 87.4 % 96.0-97.0 L (test code = 386) HCO3 ARTERIAL (BEAKER) (test code 22 mmol/L 21-29 = 388) BASE EXCESS ARTERIAL (BEAKER) -4.9 mmol/L -2.0-3.0 L (test code = 387) PATIENT TEMPERATURE (BEAKER) 35.3 C (test code = 1818) FIO2 (BEAKER) (test code = 1819) 60.0 % BLOOD GAS, [id number] 10:54:00 Test Item Value Reference Range Interpretation Comments PH ARTERIAL (BEAKER) (test code = 7.36 7.35-7.45 383) PCO2 ARTERIAL (BEAKER) (test code 37 mmHg 35-45 = 384) PO2 ARTERIAL (BEAKER) (test code 220 mmHg 80-90 H = 385) O2 SATURATION ARTERIAL (BEAKER) 99.4 % 96.0-97.0 H (test code = 386) HCO3 ARTERIAL (BEAKER) (test code 21 mmol/L 21-29 = 388) BASE EXCESS ARTERIAL (BEAKER) -4.7 mmol/L -2.0-3.0 L (test code = 387) PATIENT TEMPERATURE (BEAKER) 35.7 C (test code = 1818) FIO2 (BEAKER) (test code = 1819) 100.0 % GLUCOSE-STAT [id number] 10:54:00 Test Item Value Reference Range Interpretation Comments GLUCOSE RANDOM (BEAKER) (test code 193 mg/dL 70-110 H = 652) CALCIUM, [id number] 10:54:00 Test Item Value Reference Range Interpretation Comments CALCIUM IONIZED (BEAKER) (test 1.08 mmol/L 1.12-1.27 L code = 698) PH, BLOOD (BEAKER) (test code = 7.34 1810) SODIUM NA-STAT [id number] 10:53:00 Test Item Value Reference Range Interpretation Comments SODIUM (BEAKER) (test code = 381) 138 meq/L 135-148 POTASSIUM-STAT [id number] 10:53:00 Test Item Value Reference Range Interpretation Comments POTASSIUM (BEAKER) (test code = 4.4 meq/L 3.6-5.5 379) HGB/HCT (H&H) - STAT [id number] 10:53:00 Test Item Value Reference Range Interpretation Comments HEMOGLOBIN (BEAKER) (test code = 12.3 g/dL 12.0-15.0 410) HEMATOCRIT (BEAKER) (test code = 36.0 % 36.0-45.0 411) CALCIUM, [id number] 10:30:00 Test Item Value Reference Range Interpretation Comments CALCIUM IONIZED (BEAKER) (test 1.16 mmol/L 1.12-1.27 code = 698) PH, BLOOD (BEAKER) (test code = 7.34 1810) BLOOD GAS, [id number] 10:25:00 Test Item Value Reference Range Interpretation Comments PH ARTERIAL (BEAKER) (test code = 7.36 7.35-7.45 383) PCO2 ARTERIAL (BEAKER) (test code 41 mmHg 35-45 = 384) PO2 ARTERIAL (BEAKER) (test code 115 mmHg 80-90 H = 385) O2 SATURATION ARTERIAL (BEAKER) 98.2 % 96.0-97.0 H (test code = 386) HCO3 ARTERIAL (BEAKER) (test code 23 mmol/L 21-29 = 388) BASE EXCESS ARTERIAL (BEAKER) -3.1 mmol/L -2.0-3.0 L (test code = 387) PATIENT TEMPERATURE (BEAKER) 35.7 C (test code = 1818) FIO2 (BEAKER) (test code = 1819) 100.0 % GLUCOSE-STAT [id number] 10:25:00 Test Item Value Reference Range Interpretation Comments GLUCOSE RANDOM (BEAKER) (test code 223 mg/dL 70-110 H = 652) HGB/HCT (H&H) - STAT [id number] 10:25:00 Test Item Value Reference Range Interpretation Comments HEMOGLOBIN (BEAKER) (test code = 13.4 g/dL 12.0-15.0 410) HEMATOCRIT (BEAKER) (test code = 39.0 % 36.0-45.0 411) SODIUM NA-STAT [id number] 10:24:00 Test Item Value Reference Range Interpretation Comments SODIUM (BEAKER) (test code = 381) 136 meq/L 135-148 POTASSIUM-STAT [id number] 10:24:00 Test Item Value Reference Range Interpretation Comments POTASSIUM (BEAKER) (test code = 5.0 meq/L 3.6-5.5 379) POTASSIUM-STAT [id number] 09:51:00 Test Item Value Reference Range Interpretation Comments POTASSIUM (BEAKER) (test code = 6.4 meq/L 3.6-5.5 HH 379) BLOOD GAS, [id number] 09:45:00 Test Item Value Reference Range Interpretation Comments PH ARTERIAL (BEAKER) (test code = 7.42 7.35-7.45 383) PCO2 ARTERIAL (BEAKER) (test code 37 mmHg 35-45 = 384) PO2 ARTERIAL (BEAKER) (test code 277 mmHg 80-90 H = 385) O2 SATURATION ARTERIAL (BEAKER) 99.7 % 96.0-97.0 H (test code = 386) HCO3 ARTERIAL (BEAKER) (test code 24 mmol/L 21-29 = 388) BASE EXCESS ARTERIAL (BEAKER) -0.7 mmol/L -2.0-3.0 (test code = 387) PATIENT TEMPERATURE (BEAKER) 34.4 C (test code = 1818) FIO2 (BEAKER) (test code = 1819) 70.0 % GLUCOSE-STAT [id number] 09:45:00 Test Item Value Reference Range Interpretation Comments GLUCOSE RANDOM (BEAKER) (test code 235 mg/dL 70-110 H = 652) HGB/HCT (H&H) - STAT [id number] 09:45:00 Test Item Value Reference Range Interpretation Comments HEMOGLOBIN (BEAKER) (test code = 9.0 g/dL 12.0-15.0 L 410) HEMATOCRIT (BEAKER) (test code = 26.0 % 36.0-45.0 L 411) SODIUM NA-STAT [id number] 09:45:00 Test Item Value Reference Range Interpretation Comments SODIUM (BEAKER) (test code = 381) 134 meq/L 135-148 L HGB/HCT (H&H) - STAT [id number] 09:23:00 Test Item Value Reference Range Interpretation Comments HEMOGLOBIN (BEAKER) (test code = 5.3 g/dL 12.0-15.0 LL 410) HEMATOCRIT (BEAKER) (test code = 16.0 % 36.0-45.0 L 411) SODIUM NA-STAT [id number] 09:16:00 Test Item Value Reference Range Interpretation Comments SODIUM (BEAKER) (test code = 381) 130 meq/L 135-148 L POTASSIUM-STAT [id number] 09:16:00 Test Item Value Reference Range Interpretation Comments POTASSIUM (BEAKER) (test code = 5.7 meq/L 3.6-5.5 H 379) BLOOD GAS, [id number] 09:15:00 Test Item Value Reference Range Interpretation Comments PH ARTERIAL (BEAKER) (test code = 7.29 7.35-7.45 L 383) PCO2 ARTERIAL (BEAKER) (test code 40 mmHg 35-45 = 384) PO2 ARTERIAL (BEAKER) (test code 270 mmHg 80-90 H = 385) O2 SATURATION ARTERIAL (BEAKER) 99.6 % 96.0-97.0 H (test code = 386) HCO3 ARTERIAL (BEAKER) (test code 20 mmol/L 21-29 L = 388) BASE EXCESS ARTERIAL (BEAKER) -7.0 mmol/L -2.0-3.0 L (test code = 387) PATIENT TEMPERATURE (BEAKER) 34.1 C (test code = 1818) FIO2 (BEAKER) (test code = 1819) 65.0 % GLUCOSE-STAT [id number] 09:15:00 Test Item Value Reference Range Interpretation Comments GLUCOSE RANDOM (BEAKER) (test code 206 mg/dL 70-110 H = 652) BLOOD GAS, [id number] 08:17:00 Test Item Value Reference Range Interpretation Comments PH ARTERIAL (BEAKER) (test code = 7.49 7.35-7.45 H 383) PCO2 ARTERIAL (BEAKER) (test code 27 mmHg 35-45 L = 384) PO2 ARTERIAL (BEAKER) (test code 436 mmHg 80-90 H = 385) O2 SATURATION ARTERIAL (BEAKER) 99.9 % 96.0-97.0 H (test code = 386) HCO3 ARTERIAL (BEAKER) (test code 21 mmol/L 21-29 = 388) BASE EXCESS ARTERIAL (BEAKER) -2.3 mmol/L -2.0-3.0 L (test code = 387) PATIENT TEMPERATURE (BEAKER) 35.3 C (test code = 1818) FIO2 (BEAKER) (test code = 1819) 100.0 % GLUCOSE-STAT [id number] 08:17:00 Test Item Value Reference Range Interpretation Comments GLUCOSE RANDOM (BEAKER) (test code 124 mg/dL 70-110 H = 652) HGB/HCT (H&H) - STAT [id number] 08:17:00 Test Item Value Reference Range Interpretation Comments HEMOGLOBIN (BEAKER) (test code = 10.0 g/dL 12.0-15.0 L 410) HEMATOCRIT (BEAKER) (test code = 29.0 % 36.0-45.0 L 411) CALCIUM, [id number] 08:17:00 Test Item Value Reference Range Interpretation Comments CALCIUM IONIZED (BEAKER) (test 1.10 mmol/L 1.12-1.27 L code = 698) PH, BLOOD (BEAKER) (test code = 7.47 1810) SODIUM NA-STAT [id number] 08:16:00 Test Item Value Reference Range Interpretation Comments SODIUM (BEAKER) (test code = 381) 138 meq/L 135-148 POTASSIUM-STAT [id number] 08:16:00 Test Item Value Reference Range Interpretation Comments POTASSIUM (BEAKER) (test code = 4.2 meq/L 3.6-5.5 379) [id number] 06:01:00 Test Item Value Reference Range Interpretation Comments MAGNESIUM (BEAKER) (test code = 1.5 mg/dL 1.6-2.6 L 627) BASIC METABOLIC [id number] 06:01:00 Test Item Value Reference Range Interpretation Comments SODIUM (BEAKER) 141 meq/L 136-145 (test code = 381) POTASSIUM (BEAKER) 4.6 meq/L 3.5-5.1 (test code = 379) CHLORIDE (BEAKER) 112 meq/L 98-107 H (test code = 382) CO2 (BEAKER) (test 22 meq/L 22-29 code = 355) BLOOD UREA NITROGEN 17 mg/dL 7-21 (BEAKER) (test code = 354) CREATININE (BEAKER) 1.03 mg/dL 0.57-1.25 (test code = 358) GLUCOSE RANDOM 109 mg/dL 70-105 H (BEAKER) (test code = 652) CALCIUM (BEAKER) 9.7 mg/dL 8.4-10.2 (test code = 697) EGFR (BEAKER) (test 63 mL/min/1.73 ESTIMA DMITRY GFR IS code = 1092) sq m NOT ACCURATE CREATININE CLEARANCE IN PREDICTING GLOMERULAR FILTRATION RATE . ESTIMATED GFR I S NOT APPLICABLE FOR DIALYSIS PATIMELISSA CASSIDY. [id number] 05:50:00 Test Item Value Reference Range Interpretation Comments PARTIAL THROMBOPLASTIN TIME 81.2 seconds 22.5-36.0 H (BEAKER) (test code = 760) PROTHROMBIN [id number] 05:49:00 Test Item Value Reference Range Interpretation Comments PROTIME (BEAKER) (test code = 14.2 seconds 11.7-14.7 759) INR (BEAKER) (test code = 370) 1.1 <=5.9 RECOMMENDED COUMADIN/WARFARIN INR THERAPY RANGESSTANDARD DOSE: 2.0 - 3.0 Includes: PROPHYLAXIS forvenous thrombosis, systemic embolization; TREATMENT for venous thrombosis and/or pulmonary embolus.HIGH RISK: Target INR is 2.5-3.5 for patients with mechanical heart valves.CBC (HEMOGRAM ONLY)2018-12-17 05:40:00 Test Item Value Reference Range Interpretation Comments WHITE BLOOD CELL COUNT (BEAKER) 4.9 K/ L 3.5-10.5 (test code = 775) RED BLOOD CELL COUNT (BEAKER) 3.05 M/ L 3.93-5.22 L (test code = 761) HEMOGLOBIN (BEAKER) (test code = 10.0 GM/DL 11.2-15.7 L 410) HEMATOCRIT (BEAKER) (test code = 31.8 % 34.1-44.9 L 411) MEAN CORPUSCULAR VOLUME (BEAKER) 104.3 fL 79.4-94.8 H (test code = 753) MEAN CORPUSCULAR HEMOGLOBIN 32.8 pg 25.6-32.2 H (BEAKER) (test code = 751) MEAN CORPUSCULAR HEMOGLOBIN CONC 31.4 GM/DL 32.2-35.5 L (BEAKER) (test code = 752) RED CELL DISTRIBUTION WIDTH 14.8 % 11.7-14.4 H (BEAKER) (test code = 412) PLATELET COUNT (BEAKER) (test 171 K/CU MM 150-450 code = 756) MEAN PLATELET VOLUME (BEAKER) 12.5 fL 9.4-12.3 H (test code = 754) NUCLEATED RED BLOOD CELLS 0 /100 WBC 0-0 (BEAKER) (test code = 413) POCT-GLUCOSE [id number] 21:31:00 Test Item Value Reference Range Interpretation Comments POC-GLUCOSE METER 123 mg/dL 70-110 H TESTED AT [place] [address] (BEAKER) (test code = ALONDRA Coy [facility] 1538) [id number] POCT-GLUCOSE [id number] 17:23:00 Test Item Value Reference Range Interpretation Comments POC-GLUCOSE METER 121 mg/dL 70-110 H TESTED AT [place] [address] ([facility]) (test code = ALONDRA Coy [facility] 1538) [address] POCT-GLUCOSE [id number] 12:37:00 Test Item Value Reference Range Interpretation Comments POC-GLUCOSE METER 167 mg/dL 70-110 H TESTED AT [place] [address] ([facility]) (test code = [facility] Zbigniew [facility] 1538) [address] POCT-GLUCOSE [id number] 09:52:00 Test Item Value Reference Range Interpretation Comments POC-GLUCOSE METER 227 mg/dL 70-110 H TESTED AT [place] [address] ([facility]) (test code = [facility] Zbigniew [facility] 1538) [address] [id number] 04:44:00 Test Item Value Reference Range Interpretation Comments PARTIAL THROMBOPLASTIN TIME 66.8 seconds 22.5-36.0 H (AKER) (test code = 760) [id number] 04:42:00 Test Item Value Reference Range Interpretation Comments MAGNESIUM (BEAKER) (test code = 1.7 mg/dL 1.6-2.6 627) BASIC METABOLIC [id number] 04:42:00 Test Item Value Reference Range Interpretation Comments SODIUM (BEAKER) 139 meq/L 136-145 (test code = 381) POTASSIUM (BEAKER) 4.0 meq/L 3.5-5.1 (test code = 379) CHLORIDE (BEAKER) 111 meq/L 98-107 H (test code = 382) CO2 (BEAKER) (test 22 meq/L 22-29 code = 355) BLOOD UREA NITROGEN 19 mg/dL 7-21 (BEAKER) (test code = 354) CREATININE (BEAKER) 1.09 mg/dL 0.57-1.25 (test code = 358) GLUCOSE RANDOM 109 mg/dL 70-105 H (BEAKER) (test code = 652) CALCIUM (BEAKER) 9.3 mg/dL 8.4-10.2 (test code = 697) EGFR (BEAKER) (test 59 mL/min/1.73 ESTIMA DMITRY GFR IS code = 1092) sq m NOT ACCURATE CREATININE CLEARANCE IN PREDICTING GLOMERULAR FILTRATION RATE . ESTIMATED GFR I S NOT APPLICABLE FOR DIALYSIS PATIEN TS. CBC (HEMOGRAM ONLY)2018-12-16 04:25:00 Test Item Value Reference Range Interpretation Comments WHITE BLOOD CELL COUNT (BEAKER) 4.5 K/ L 3.5-10.5 (test code = 775) RED BLOOD CELL COUNT (BEAKER) 2.86 M/ L 3.93-5.22 L (test code = 761) HEMOGLOBIN (BEAKER) (test code = 9.3 GM/DL 11.2-15.7 L 410) HEMATOCRIT (BEAKER) (test code = 29.8 % 34.1-44.9 L 411) MEAN CORPUSCULAR VOLUME (BEAKER) 104.2 fL 79.4-94.8 H (test code = 753) MEAN CORPUSCULAR HEMOGLOBIN 32.5 pg 25.6-32.2 H (BEAKER) (test code = 751) MEAN CORPUSCULAR HEMOGLOBIN CONC 31.2 GM/DL 32.2-35.5 L (BEAKER) (test code = 752) RED CELL DISTRIBUTION WIDTH 14.7 % 11.7-14.4 H (BEAKER) (test code = 412) PLATELET COUNT (BEAKER) (test 181 K/CU MM 150-450 code = 756) MEAN PLATELET VOLUME (BEAKER) 12.2 fL 9.4-12.3 (test code = 754) NUCLEATED RED BLOOD CELLS 0 /100 WBC 0-0 (BEAKER) (test code = 413) [id number] 23:39:00 Test Item Value Reference Range Interpretation Comments PARTIAL THROMBOPLASTIN TIME 70.2 seconds 22.5-36.0 H (BEAKER) (test code = 760) POCT-GLUCOSE [id number] 21:47:00 Test Item Value Reference Range Interpretation Comments POC-GLUCOSE METER 145 mg/dL 70-110 H TESTED AT [facility] [address] ([facility]) (test code = ALONDRA CRISOSTOMO 1538) [address] POCT-GLUCOSE [id number] 18:36:00 Test Item Value Reference Range Interpretation Comments POC-GLUCOSE METER 143 mg/dL 70-110 H TESTED AT [facility] [address] ([facility]) (test code = ALONDRA CRISOSTOMO 1538) [address] [id number] 17:07:00 Test Item Value Reference Range Interpretation Comments PARTIAL THROMBOPLASTIN TIME 65.6 seconds 22.5-36.0 H (BEAKER) (test code = 760) [id number] 09:50:00 Test Item Value Reference Range Interpretation Comments PARTIAL THROMBOPLASTIN TIME 58.1 seconds 22.5-36.0 H (BEAKER) (test code = 760) POCT-GLUCOSE [id number] 09:08:00 Test Item Value Reference Range Interpretation Comments POC-GLUCOSE METER 164 mg/dL 70-110 H TESTED AT [facility] [address] (BEAKER) (test code = ALONDRA Coy [facility] 1538) [address] [id number] 04:08:00 Test Item Value Reference Range Interpretation Comments PARTIAL THROMBOPLASTIN TIME 79.3 seconds 22.5-36.0 H (BEAKER) (test code = 760) [id number] 04:05:00 Test Item Value Reference Range Interpretation Comments MAGNESIUM (BEAKER) (test code = 1.5 mg/dL 1.6-2.6 L 627) BASIC METABOLIC [id number] 04:05:00 Test Item Value Reference Range Interpretation Comments SODIUM (BEAKER) 140 meq/L 136-145 (test code = 381) POTASSIUM (BEAKER) 4.2 meq/L 3.5-5.1 (test code = 379) CHLORIDE (BEAKER) 110 meq/L 98-107 H (test code = 382) CO2 (BEAKER) (test 22 meq/L 22-29 code = 355) BLOOD UREA NITROGEN 19 mg/dL 7-21 (BEAKER) (test code = 354) CREATININE (BEAKER) 1.04 mg/dL 0.57-1.25 (test code = 358) GLUCOSE RANDOM 118 mg/dL 70-105 H (BEAKER) (test code = 652) CALCIUM (BEAKER) 9.6 mg/dL 8.4-10.2 (test code = 697) EGFR (BEAKER) (test 62 mL/min/1.73 ESTIMA DMITRY GFR IS code = 1092) sq m NOT ACCURATE CREATININE CLEARANCE IN PREDICTING GLOMERULAR FILTRATION RATE . ESTIMATED GFR I S NOT APPLICABLE FOR DIALYSIS PATIEN TS. CBC (HEMOGRAM ONLY)2018-12-15 03:57:00 Test Item Value Reference Range Interpretation Comments WHITE BLOOD CELL COUNT (BEAKER) 5.5 K/ L 3.5-10.5 (test code = 775) RED BLOOD CELL COUNT (BEAKER) 2.99 M/ L 3.93-5.22 L (test code = 761) HEMOGLOBIN (BEAKER) (test code = 9.7 GM/DL 11.2-15.7 L 410) HEMATOCRIT (BEAKER) (test code = 31.2 % 34.1-44.9 L 411) MEAN CORPUSCULAR VOLUME (BEAKER) 104.3 fL 79.4-94.8 H (test code = 753) MEAN CORPUSCULAR HEMOGLOBIN 32.4 pg 25.6-32.2 H (BEAKER) (test code = 751) MEAN CORPUSCULAR HEMOGLOBIN CONC 31.1 GM/DL 32.2-35.5 L (BEAKER) (test code = 752) RED CELL DISTRIBUTION WIDTH 14.6 % 11.7-14.4 H (BEAKER) (test code = 412) PLATELET COUNT (BEAKER) (test 167 K/CU MM 150-450 code = 756) MEAN PLATELET VOLUME (BEAKER) 12.3 fL 9.4-12.3 (test code = 754) NUCLEATED RED BLOOD CELLS 0 /100 WBC 0-0 (BEAKER) (test code = 413) [id number] 21:53:00 Test Item Value Reference Range Interpretation Comments PARTIAL THROMBOPLASTIN TIME 112.2 seconds 22.5-36.0 H (BEAKER) (test code = 760) POCT-GLUCOSE [id number] 20:34:00 Test Item Value Reference Range Interpretation Comments POC-GLUCOSE METER 125 mg/dL 70-110 H TESTED AT [place] [address] ([facility]) (test code = ALONDRA CRISOSTOM[place] 1538) [id number] OCCULT BLOOD, [id number] 14:49:00 Test Item Value Reference Range Interpretation Comments FECAL OCCULT BLOOD (BEAKER) (test Negative Negative code = 618) POCT-GLUCOSE [id number] 14:43:00 Test Item Value Reference Range Interpretation Comments POC-GLUCOSE METER 128 mg/dL 70-110 H TESTED AT [place] [address] (BEAKER) (test code = ALONDRA [place] 1538) [address] [id number] 14:43:00 Test Item Value Reference Range Interpretation Comments PARTIAL THROMBOPLASTIN TIME 104.0 seconds 22.5-36.0 H (BEAKER) (test code = 760) C. DIFFICILE GDH [id number] 09:11:00 Test Item Value Reference Range Interpretation Comments CDT TOXIN (test code Negative Negative = [id number]) CDT GDH ANTIGEN Positive Negative A C. difficile present but (test code = toxin not detec dmitry. [id number]) Indicates colon ization with non-toxige sabrina strain or level of tox in below detectable leve ls. No need for enteri c isolation. [place] atment is rarely needed ( only when strong clinical suspicion for Clostridium difficile infection) Testing performed by [employer]. For GDH, published sensitivity of the assay is 98.7% compared to cytotoxicity testing. For Toxin AB, published sensitivity is 87.8% and specificity 99.4% compared to cytotoxicity testing.Verification of kit performance was done by the [facility] prior to clinical use.[id number] 07:50:00 Test Item Value Reference Range Interpretation Comments MAGNESIUM (BEAKER) 1.8 mg/dL 1.6-2.6 Specimen slightly (test code = 627) hemolyzed BASIC METABOLIC [id number] 07:50:00 Test Item Value Reference Range Interpretation Comments SODIUM (BEAKER) 137 meq/L 136-145 (test code = 381) POTASSIUM (BEAKER) 4.8 meq/L 3.5-5.1 Specimen slightly (test code = 379) hemolyzed CHLORIDE (BEAKER) 107 meq/L 98-107 (test code = 382) CO2 (BEAKER) (test 20 meq/L 22-29 L code = 355) BLOOD UREA NITROGEN 21 mg/dL 7-21 (BEAKER) (test code = 354) CREATININE (BEAKER) 1.11 mg/dL 0.57-1.25 Specimen slightly (test code = 358) hemolyzed GLUCOSE RANDOM 97 mg/dL 70-105 (BEAKER) (test code = 652) CALCIUM (BEAKER) 9.3 mg/dL 8.4-10.2 (test code = 697) EGFR (BEAKER) (test 57 mL/min/1.73 ESTIMA DMITRY GFR IS code = 1092) sq m NOT ACCURATE CREATININE CLEARANCE IN PREDICTING GLOMERULAR FILTRATION RATE . ESTIMATED GFR I S NOT APPLICABLE FOR DIALYSIS PATIEN TS. POCT-GLUCOSE [id number] 07:49:00 Test Item Value Reference Range Interpretation Comments POC-GLUCOSE METER 131 mg/dL 70-110 H TESTED AT [facility] [address] (BEAKER) (test code = ALONDRA [place] 1538) [address] [id number] 07:18:00 Test Item Value Reference Range Interpretation Comments PARTIAL THROMBOPLASTIN TIME 38.8 seconds 22.5-36.0 H (BEAKER) (test code = 760) CBC (HEMOGRAM ONLY)2018-12-14 07:00:00 Test Item Value Reference Range Interpretation Comments WHITE BLOOD CELL COUNT (BEAKER) 4.9 K/ L 3.5-10.5 (test code = 775) RED BLOOD CELL COUNT (BEAKER) 2.91 M/ L 3.93-5.22 L (test code = 761) HEMOGLOBIN (BEAKER) (test code = 9.5 GM/DL 11.2-15.7 L 410) HEMATOCRIT (BEAKER) (test code = 30.8 % 34.1-44.9 L 411) MEAN CORPUSCULAR VOLUME (BEAKER) 105.8 fL 79.4-94.8 H (test code = 753) MEAN CORPUSCULAR HEMOGLOBIN 32.6 pg 25.6-32.2 H (BEAKER) (test code = 751) MEAN CORPUSCULAR HEMOGLOBIN CONC 30.8 GM/DL 32.2-35.5 L (BEAKER) (test code = 752) RED CELL DISTRIBUTION WIDTH 14.6 % 11.7-14.4 H (BEAKER) (test code = 412) PLATELET COUNT (BEAKER) (test 177 K/CU MM 150-450 code = 756) MEAN PLATELET VOLUME (BEAKER) 12.7 fL 9.4-12.3 H (test code = 754) NUCLEATED RED BLOOD CELLS 0 /100 WBC 0-0 (BEAKER) (test code = 413) [id number] 21:36:00 Test Item Value Reference Range Interpretation Comments PARTIAL THROMBOPLASTIN TIME 73.2 seconds 22.5-36.0 H (BEAKER) (test code = 760) POCT-GLUCOSE [id number] 21:14:00 Test Item Value Reference Range Interpretation Comments POC-GLUCOSE METER 116 mg/dL 70-110 H TESTED AT [place] [address] (BEAKER) (test code = ALONDRA Coy [facility] 1538) [address] POCT-GLUCOSE [id number] 18:13:00 Test Item Value Reference Range Interpretation Comments POC-GLUCOSE METER 150 mg/dL 70-110 H [facility] AT [place] [address] [facility] (test code = ALONDRA Coy [facility] 1538) [address] [id number] 14:26:00 Test Item Value Reference Range Interpretation Comments PARTIAL THROMBOPLASTIN TIME 87.5 seconds 22.5-36.0 H (BEAKER) (test code = 760) POCT-GLUCOSE [id number] 12:54:00 Test Item Value Reference Range Interpretation Comments POC-GLUCOSE METER 140 mg/dL 70-110 H TESTED AT [place] [address] ([facility]) (test code = ALONDRA Coy [facility] 1538) [address] POCT-GLUCOSE [id number] 09:38:00 Test Item Value Reference Range Interpretation Comments POC-GLUCOSE METER 148 mg/dL 70-110 H TESTED AT [place] [address] ([facility] (test code = [facility] Zbigniew [facility] 1538) [id number] 06:53:00 Test Item Value Reference Range Interpretation Comments MAGNESIUM (BEAKER) (test code = 2.0 mg/dL 1.6-2.6 627) BASIC METABOLIC [id number] 06:53:00 Test Item Value Reference Range Interpretation Comments SODIUM (BEAKER) 138 meq/L 136-145 (test code = 381) POTASSIUM (BEAKER) 4.5 meq/L 3.5-5.1 (test code = 379) CHLORIDE (BEAKER) 106 meq/L 98-107 (test code = 382) CO2 (BEAKER) (test 22 meq/L 22-29 code = 355) BLOOD UREA NITROGEN 24 mg/dL 7-21 H (BEAKER) (test code = 354) CREATININE (BEAKER) 1.18 mg/dL 0.57-1.25 (test code = 358) GLUCOSE RANDOM 128 mg/dL 70-105 H (BEAKER) (test code = 652) CALCIUM (BEAKER) 9.5 mg/dL 8.4-10.2 (test code = 697) EGFR (BEAKER) (test 54 mL/min/1.73 ESTIMA DMITRY GFR IS code = 1092) sq m NOT ACCURATE CREATININE CLEARANCE IN PREDICTING GLOMERULAR FILTRATION RATE . ESTIMATED GFR I S NOT APPLICABLE FOR DIALYSIS PATIEN [id number] 06:39:00 Test Item Value Reference Range Interpretation Comments PARTIAL THROMBOPLASTIN TIME 109.7 seconds 22.5-36.0 H (BEAKER) (test code = 760) CBC (HEMOGRAM ONLY)[id number] 06:19:00 Test Item Value Reference Range Interpretation Comments WHITE BLOOD CELL COUNT (BEAKER) 5.2 K/ L 3.5-10.5 (test code = 775) RED BLOOD CELL COUNT (BEAKER) 3.38 M/ L 3.93-5.22 L (test code = 761) HEMOGLOBIN (BEAKER) (test code = 10.8 GM/DL 11.2-15.7 L 410) HEMATOCRIT (BEAKER) (test code = 35.6 % 34.1-44.9 411) MEAN CORPUSCULAR VOLUME (BEAKER) 105.3 fL 79.4-94.8 H (test code = 753) MEAN CORPUSCULAR HEMOGLOBIN 32.0 pg 25.6-32.2 (BEAKER) (test code = 751) MEAN CORPUSCULAR HEMOGLOBIN CONC 30.3 GM/DL 32.2-35.5 L (BEAKER) (test code = 752) RED CELL DISTRIBUTION WIDTH 14.5 % 11.7-14.4 H (BEAKER) (test code = 412) PLATELET COUNT (BEAKER) (test 190 K/CU MM 150-450 code = 756) MEAN PLATELET VOLUME (BEAKER) 12.4 fL 9.4-12.3 H (test code = 754) NUCLEATED RED BLOOD CELLS 0 /100 WBC 0-0 (BEAKER) (test code = 413) POCT-GLUCOSE [id number] 23:24:00 Test Item Value Reference Range Interpretation Comments POC-GLUCOSE METER 157 mg/dL 70-110 H TESTED AT [facility] 6720 (BEAKER) (test code = ALONDRA CRISOSTOMO 1538) [id number] POCT-GLUCOSE [id number] 18:13:00 Test Item Value Reference Range Interpretation Comments POC-GLUCOSE METER 135 mg/dL 70-110 H TESTED AT [facility] 67[address] (BEAKER) (test code = ALONDRA Coy [place] 1538) [address] POCT-GLUCOSE [id number] 13:04:00 Test Item Value Reference Range Interpretation Comments POC-GLUCOSE METER 147 mg/dL 70-110 H TESTED AT [facility] 67[address] (BEAKER) (test code = ALONDRA Coy [place] 1538) [id number] 12:49:00 Test Item Value Reference Range Interpretation Comments PARTIAL THROMBOPLASTIN TIME 92.6 seconds 22.5-36.0 H (BEAKER) (test code = 760) POCT-GLUCOSE [id number] 08:55:00 Test Item Value Reference Range Interpretation Comments POC-GLUCOSE METER 144 mg/dL 70-110 H TESTED AT [facility] 67[address] (BEAKER) (test code = ALONDRA Coy [place] 1538) [id number] 05:30:00 Test Item Value Reference Range Interpretation Comments PARTIAL THROMBOPLASTIN TIME 84.5 seconds 22.5-36.0 H (BEAKER) (test code = 760) [id number] 02:15:00 Test Item Value Reference Range Interpretation Comments PARTIAL THROMBOPLASTIN TIME 160.4 seconds 22.5-36.0 HH (BEAKER) (test code = 760) [id number] 01:51:00 Test Item Value Reference Range Interpretation Comments MAGNESIUM (BEAKER) (test code = 1.7 mg/dL 1.6-2.6 627) BASIC METABOLIC [id number] 01:51:00 Test Item Value Reference Range Interpretation Comments SODIUM (BEAKER) 137 meq/L 136-145 (test code = 381) POTASSIUM (BEAKER) 4.1 meq/L 3.5-5.1 (test code = 379) CHLORIDE (BEAKER) 106 meq/L 98-107 (test code = 382) CO2 (BEAKER) (test 21 meq/L 22-29 L code = 355) BLOOD UREA NITROGEN 25 mg/dL 7-21 H (BEAKER) (test code = 354) CREATININE (BEAKER) 1.25 mg/dL 0.57-1.25 (test code = 358) GLUCOSE RANDOM 101 mg/dL 70-105 (BEAKER) (test code = 652) CALCIUM (BEAKER) 9.2 mg/dL 8.4-10.2 (test code = 697) EGFR (BEAKER) (test 50 mL/min/1.73 ESTIMA DMITRY GFR IS code = 1092) sq m NOT ACCURATE CREATININE CLEARANCE IN PREDICTING GLOMERULAR FILTRATION RATE . ESTIMATED GFR I S NOT APPLICABLE FOR DIALYSIS PATIEN TS. CBC (HEMOGRAM ONLY)2018-12-12 01:24:00 Test Item Value Reference Range Interpretation Comments WHITE BLOOD CELL COUNT (BEAKER) 6.0 K/ L 3.5-10.5 (test code = 775) RED BLOOD CELL COUNT (BEAKER) 2.99 M/ L 3.93-5.22 L (test code = 761) HEMOGLOBIN (BEAKER) (test code = 9.7 GM/DL 11.2-15.7 L 410) HEMATOCRIT (BEAKER) (test code = 30.4 % 34.1-44.9 L 411) MEAN CORPUSCULAR VOLUME (BEAKER) 101.7 fL 79.4-94.8 H (test code = 753) MEAN CORPUSCULAR HEMOGLOBIN 32.4 pg 25.6-32.2 H (BEAKER) (test code = 751) MEAN CORPUSCULAR HEMOGLOBIN CONC 31.9 GM/DL 32.2-35.5 L (BEAKER) (test code = 752) RED CELL DISTRIBUTION WIDTH 14.5 % 11.7-14.4 H (BEAKER) (test code = 412) PLATELET COUNT (BEAKER) (test 197 K/CU MM 150-450 code = 756) MEAN PLATELET VOLUME (BEAKER) 12.0 fL 9.4-12.3 (test code = 754) NUCLEATED RED BLOOD CELLS 0 /100 WBC 0-0 (BEAKER) (test code = 413) POCT-GLUCOSE [id number] 18:06:00 Test Item Value Reference Range Interpretation Comments POC-GLUCOSE METER 110 mg/dL 70-110 TESTED AT [facility] 6720 (BEAKER) (test code = [place] 1538) [address] [id number] 17:35:00 Test Item Value Reference Range Interpretation Comments PARTIAL THROMBOPLASTIN TIME 49.2 seconds 22.5-36.0 H ([facility]) (test code = 760) POCT-GLUCOSE [id number] 14:02:00 Test Item Value Reference Range Interpretation Comments POC-GLUCOSE METER 215 mg/dL 70-110 H TESTED AT [place] [address] ([facility]) (test code = ALONDRA Coy [facility] 1538) [address] [id number] 11:09:00 Test Item Value Reference Range Interpretation Comments PARTIAL THROMBOPLASTIN TIME 52.4 seconds 22.5-36.0 H ([facility]) (test code = 760) Prior to initiating heparinPOCT-GLUCOSE [id number] 08:34:00 Test Item Value Reference Range Interpretation Comments POC-GLUCOSE METER 121 mg/dL 70-110 H TESTED AT [place] [address] ([facility]) (test code = ALONDRA Coy [facility] 1538) [address] POCT-GLUCOSE [id number] 21:46:00 Test Item Value Reference Range Interpretation Comments POC-GLUCOSE METER 132 mg/dL 70-110 H TESTED AT [place] [address] ([facility]) (test code = ALONDRA Coy [facility] 1538) [address] POCT-GLUCOSE [id number] 17:30:00 Test Item Value Reference Range Interpretation Comments POC-GLUCOSE METER 146 mg/dL 70-110 H TESTED AT [place] [address] ([facility]) (test code = ALONDRA Coy [facility] 1538) [address] POCT-GLUCOSE [id number] 13:44:00 Test Item Value Reference Range Interpretation Comments POC-GLUCOSE METER 124 mg/dL 70-110 H TESTED AT [place] [address] ([facility]) (test code = ALONDRA Coy [facility] 1538) [address] POCT-GLUCOSE [id number] 09:03:00 Test Item Value Reference Range Interpretation Comments POC-GLUCOSE METER 136 mg/dL 70-110 H TESTED AT [place] [address] ([facility]) (test code = ALONDRA Coy [facility] 1538) [address] CBC W/PLT COUNT & AUTO [id number] 07:24:00 Test Item Value Reference Range Interpretation Comments WHITE BLOOD CELL COUNT ([facility]) 5.8 K/ L 3.5-10.5 (test code = 775) RED BLOOD CELL COUNT ([facility]) 3.17 M/ L 3.93-5.22 L (test code = 761) HEMOGLOBIN (BEAKER) (test code = 10.4 GM/DL 11.2-15.7 L 410) HEMATOCRIT (BEAKER) (test code = 33.1 % 34.1-44.9 L 411) MEAN CORPUSCULAR VOLUME (BEAKER) 104.4 fL 79.4-94.8 H (test code = 753) MEAN CORPUSCULAR HEMOGLOBIN 32.8 pg 25.6-32.2 H (BEAKER) (test code = 751) MEAN CORPUSCULAR HEMOGLOBIN CONC 31.4 GM/DL 32.2-35.5 L (BEAKER) (test code = 752) RED CELL DISTRIBUTION WIDTH 14.5 % 11.7-14.4 H (BEAKER) (test code = 412) PLATELET COUNT (BEAKER) (test 218 K/CU MM 150-450 code = 756) MEAN PLATELET VOLUME (BEAKER) 12.2 fL 9.4-12.3 (test code = 754) NUCLEATED RED BLOOD CELLS 0 /100 WBC 0-0 (BEAKER) (test code = 413) NEUTROPHILS RELATIVE PERCENT 66 % (BEAKER) (test code = 429) LYMPHOCYTES RELATIVE PERCENT 25 % (BEAKER) (test code = 430) MONOCYTES RELATIVE PERCENT 6 % (BEAKER) (test code = 431) EOSINOPHILS RELATIVE PERCENT 2 % (BEAKER) (test code = 432) BASOPHILS RELATIVE PERCENT 1 % (BEAKER) (test code = 437) NEUTROPHILS ABSOLUTE COUNT 3.84 K/ L 1.56-6.13 (BEAKER) (test code = 670) LYMPHOCYTES ABSOLUTE COUNT 1.45 K/ L 1.18-3.74 (BEAKER) (test code = 414) MONOCYTES ABSOLUTE COUNT (BEAKER) 0.34 K/ L 0.24-0.36 (test code = 415) EOSINOPHILS ABSOLUTE COUNT 0.13 K/ L 0.04-0.36 (BEAKER) (test code = 416) BASOPHILS ABSOLUTE COUNT (BEAKER) 0.04 K/ L 0.01-0.08 (test code = 417) IMMATURE GRANULOCYTES-RELATIVE 0 % 0-1 PERCENT (BEAKER) (test code = 2801) [id number] 06:43:00 Test Item Value Reference Range Interpretation Comments MAGNESIUM (BEAKER) (test code = 1.4 mg/dL 1.6-2.6 L 627) BASIC METABOLIC [id number] 06:43:00 Test Item Value Reference Range Interpretation Comments SODIUM (BEAKER) 140 meq/L 136-145 (test code = 381) POTASSIUM (BEAKER) 4.1 meq/L 3.5-5.1 (test code = 379) CHLORIDE (BEAKER) 108 meq/L 98-107 H (test code = 382) CO2 (BEAKER) (test 21 meq/L 22-29 L code = 355) BLOOD UREA NITROGEN 22 mg/dL 7-21 H (BEAKER) (test code = 354) CREATININE (BEAKER) 1.08 mg/dL 0.57-1.25 (test code = 358) GLUCOSE RANDOM 101 mg/dL 70-105 (BEAKER) (test code = 652) CALCIUM (BEAKER) 9.2 mg/dL 8.4-10.2 (test code = 697) EGFR (BEAKER) (test 59 mL/min/1.73 ESTIMA DMITRY GFR IS code = 1092) sq m NOT ACCURATE CREATININE CLEARANCE IN PREDICTING GLOMERULAR FILTRATION RATE . ESTIMATED GFR I S NOT APPLICABLE FOR DIALYSIS PATIEN TS. [id number] 06:36:00 Test Item Value Reference Range Interpretation Comments PARTIAL THROMBOPLASTIN TIME 70.2 seconds 22.5-36.0 H (BEAKER) (test code = 760) TROPONIN [id number] 00:58:00 Test Item Value Reference Range Interpretation Comments TROPONIN I (BEAKER) (test code = 0.03 ng/mL 0.00-0.03 397) Troponin I (TnI) levels must be interpreted [...] failure, acidosis, acute neurological disease, and persistent tachyarrhythmia.[id number] 00:23:00 Test Item Value Reference Range Interpretation Comments PARTIAL THROMBOPLASTIN TIME 46.8 seconds 22.5-36.0 H (BEAKER) (test code = 760) Prior to initiating heparinPOCT-GLUCOSE [id number] 23:28:00 Test Item Value Reference Range Interpretation Comments POC-GLUCOSE METER 96 mg/dL 70-110 TESTED AT [place] [address] ([facility]) (test code = [facility] [address] 1538) TROPONIN [id number] 18:41:00 Test Item Value Reference Range Interpretation Comments TROPONIN I ([facility]) (test code = 0.02 ng/mL 0.00-0.03 397) Troponin I (TnI) levels must be interpreted [...] acidosis, acute neurological disease, and persistent tachyarrhythmia.POCT-GLUCOSE [id number] 17:53:00 Test Item Value Reference Range Interpretation Comments POC-GLUCOSE METER 132 mg/dL 70-110 H TESTED AT [place] [address] ([facility]) (test code = [facility] 1538) [address] POCT-GLUCOSE [id number] 14:30:00 Test Item Value Reference Range Interpretation Comments POC-GLUCOSE METER 179 mg/dL 70-110 H TESTED AT [place] [address] ([facility]) (test code = [facility] 1538) [address] TROPONIN [id number] 12:32:00 Test Item Value Reference Range Interpretation Comments TROPONIN I ([facility]) (test code = 0.03 ng/mL 0.00-0.03 397) Troponin I (TnI) levels must be interpreted [...] failure, acidosis, acute neurological disease, and persistent tachyarrhythmia.[id number] 12:22:00 Test Item Value Reference Range Interpretation Comments MAGNESIUM ([facility]) (test code = 1.1 mg/dL 1.6-2.6 L 627) BASIC METABOLIC [id number] 12:22:00 Test Item Value Reference Range Interpretation Comments SODIUM (BEAKER) 138 meq/L 136-145 (test code = 381) POTASSIUM (BEAKER) 4.1 meq/L 3.5-5.1 (test code = 379) CHLORIDE (BEAKER) 105 meq/L 98-107 (test code = 382) CO2 (BEAKER) (test 24 meq/L 22-29 code = 355) BLOOD UREA NITROGEN 22 mg/dL 7-21 H (BEAKER) (test code = 354) CREATININE (BEAKER) 1.44 mg/dL 0.57-1.25 H (test code = 358) GLUCOSE RANDOM 134 mg/dL 70-105 H (BEAKER) (test code = 652) CALCIUM (BEAKER) 9.4 mg/dL 8.4-10.2 (test code = 697) EGFR (BEAKER) (test 43 mL/min/1.73 ESTIMA DMITRY GFR IS code = 1092) sq m NOT ACCURATE CREATININE CLEARANCE IN PREDICTING GLOMERULAR FILTRATION RATE . ESTIMATED GFR I S NOT APPLICABLE FOR DIALYSIS PATIEN TS. POCT-GLUCOSE [id number] 08:39:00 Test Item Value Reference Range Interpretation Comments POC-GLUCOSE METER 121 mg/dL 70-110 H TESTED AT [facility] 6720 (BEAKER) (test code = ALONDRA Coy [place] 1538) [address] CBC W/PLT COUNT & AUTO [id number] 06:20:00 Test Item Value Reference Range Interpretation Comments WHITE BLOOD CELL COUNT (BEAKER) 4.9 K/ L 3.5-10.5 (test code = 775) RED BLOOD CELL COUNT (BEAKER) 3.28 M/ L 3.93-5.22 L (test code = 761) HEMOGLOBIN (BEAKER) (test code = 10.6 GM/DL 11.2-15.7 L 410) HEMATOCRIT (BEAKER) (test code = 33.8 % 34.1-44.9 L 411) MEAN CORPUSCULAR VOLUME (BEAKER) 103.0 fL 79.4-94.8 H (test code = 753) MEAN CORPUSCULAR HEMOGLOBIN 32.3 pg 25.6-32.2 H (BEAKER) (test code = 751) MEAN CORPUSCULAR HEMOGLOBIN CONC 31.4 GM/DL 32.2-35.5 L (BEAKER) (test code = 752) RED CELL DISTRIBUTION WIDTH 14.5 % 11.7-14.4 H (BEAKER) (test code = 412) PLATELET COUNT (BEAKER) (test 232 K/CU MM 150-450 code = 756) MEAN PLATELET VOLUME (BEAKER) 11.9 fL 9.4-12.3 (test code = 754) NUCLEATED RED BLOOD CELLS 0 /100 WBC 0-0 (BEAKER) (test code = 413) NEUTROPHILS RELATIVE PERCENT 56 % (BEAKER) (test code = 429) LYMPHOCYTES RELATIVE PERCENT 32 % (BEAKER) (test code = 430) MONOCYTES RELATIVE PERCENT 8 % (BEAKER) (test code = 431) EOSINOPHILS RELATIVE PERCENT 3 % (BEAKER) (test code = 432) BASOPHILS RELATIVE PERCENT 1 % (BEAKER) (test code = 437) NEUTROPHILS ABSOLUTE COUNT 2.76 K/ L 1.56-6.13 (BEAKER) (test code = 670) LYMPHOCYTES ABSOLUTE COUNT 1.57 K/ L 1.18-3.74 (BEAKER) (test code = 414) MONOCYTES ABSOLUTE COUNT (BEAKER) 0.39 K/ L 0.24-0.36 H (test code = 415) EOSINOPHILS ABSOLUTE COUNT 0.13 K/ L 0.04-0.36 (BEAKER) (test code = 416) BASOPHILS ABSOLUTE COUNT (BEAKER) 0.04 K/ L 0.01-0.08 (test code = 417) IMMATURE GRANULOCYTES-RELATIVE 1 % 0-1 PERCENT (BEAKER) (test code = 2801) POCT-GLUCOSE [id number] 23:04:00 Test Item Value Reference Range Interpretation Comments POC-GLUCOSE METER 106 mg/dL 70-110 TESTED AT [place] [address] ([facility]) (test code = [place] 1538) [address] POCT-GLUCOSE [id number] 19:31:00 Test Item Value Reference Range Interpretation Comments POC-GLUCOSE METER 142 mg/dL 70-110 H TESTED AT [place] [address] ([facility]) (test code = AL[place] 1538) [address] POCT-GLUCOSE [id number] 12:27:00 Test Item Value Reference Range Interpretation Comments POC-GLUCOSE METER 101 mg/dL 70-110 TESTED AT [place] [address] (BEAKER) (test code = [facility] 1538) [address] POCT-GLUCOSE [id number] 09:34:00 Test Item Value Reference Range Interpretation Comments POC-GLUCOSE METER 126 mg/dL 70-110 H TESTED AT [facility] 67 (BEAKER) (test code = [facility] 1538) [address] POCT-GLUCOSE [id number] 07:54:00 Test Item Value Reference Range Interpretation Comments POC-GLUCOSE METER 101 mg/dL 70-110 TESTED AT [place] [address] (BEAKER) (test code = [facility] 1538) [address] BASIC METABOLIC [id number] 05:55:00 Test Item Value Reference Range Interpretation Comments SODIUM (BEAKER) 139 meq/L 136-145 (test code = 381) POTASSIUM (BEAKER) 4.2 meq/L 3.5-5.1 (test code = 379) CHLORIDE (BEAKER) 105 meq/L 98-107 (test code = 382) CO2 (BEAKER) (test 25 meq/L 22-29 code = 355) BLOOD UREA NITROGEN 17 mg/dL 7-21 (BEAKER) (test code = 354) CREATININE (BEAKER) 1.08 mg/dL 0.57-1.25 (test code = 358) GLUCOSE RANDOM 85 mg/dL 70-105 (BEAKER) (test code = 652) CALCIUM (BEAKER) 9.3 mg/dL 8.4-10.2 (test code = 697) EGFR (BEAKER) (test 59 mL/min/1.73 ESTIMA DMITRY GFR IS code = 1092) sq m NOT ACCURATE CREATININE CLEARANCE IN PREDICTING GLOMERULAR FILTRATION RATE . ESTIMATED GFR I S NOT APPLICABLE FOR DIALYSIS PATIEN TS. CBC W/PLT COUNT & AUTO [id number] 05:06:00 Test Item Value Reference Range Interpretation Comments WHITE BLOOD CELL COUNT (BEAKER) 4.5 K/ L 3.5-10.5 (test code = 775) RED BLOOD CELL COUNT (BEAKER) 3.42 M/ L 3.93-5.22 L (test code = 761) HEMOGLOBIN (BEAKER) (test code = 11.1 GM/DL 11.2-15.7 L 410) HEMATOCRIT (BEAKER) (test code = 35.2 % 34.1-44.9 411) MEAN CORPUSCULAR VOLUME (BEAKER) 102.9 fL 79.4-94.8 H (test code = 753) MEAN CORPUSCULAR HEMOGLOBIN 32.5 pg 25.6-32.2 H (BEAKER) (test code = 751) MEAN CORPUSCULAR HEMOGLOBIN CONC 31.5 GM/DL 32.2-35.5 L (BEAKER) (test code = 752) RED CELL DISTRIBUTION WIDTH 14.6 % 11.7-14.4 H (BEAKER) (test code = 412) PLATELET COUNT (BEAKER) (test 258 K/CU MM 150-450 code = 756) MEAN PLATELET VOLUME (BEAKER) 11.7 fL 9.4-12.3 (test code = 754) NUCLEATED RED BLOOD CELLS 0 /100 WBC 0-0 (BEAKER) (test code = 413) NEUTROPHILS RELATIVE PERCENT 62 % (BEAKER) (test code = 429) LYMPHOCYTES RELATIVE PERCENT 26 % (BEAKER) (test code = 430) MONOCYTES RELATIVE PERCENT 7 % (BEAKER) (test code = 431) EOSINOPHILS RELATIVE PERCENT 3 % (BEAKER) (test code = 432) BASOPHILS RELATIVE PERCENT 0 % (BEAKER) (test code = 437) NEUTROPHILS ABSOLUTE COUNT 2.77 K/ L 1.56-6.13 (BEAKER) (test code = 670) LYMPHOCYTES ABSOLUTE COUNT 1.17 K/ L 1.18-3.74 L (BEAKER) (test code = 414) MONOCYTES ABSOLUTE COUNT (BEAKER) 0.33 K/ L 0.24-0.36 (test code = 415) EOSINOPHILS ABSOLUTE COUNT 0.15 K/ L 0.04-0.36 (BEAKER) (test code = 416) BASOPHILS ABSOLUTE COUNT (BEAKER) 0.02 K/ L 0.01-0.08 (test code = 417) IMMATURE GRANULOCYTES-RELATIVE 1 % 0-1 PERCENT (BEAKER) (test code = 2801) POCT-GLUCOSE [id number] 23:07:00 Test Item Value Reference Range Interpretation Comments POC-GLUCOSE METER 102 mg/dL 70-110 TESTED AT [facility] 6720 (BEAKER) (test code = [place] 1538) [address] POCT-GLUCOSE [id number] 17:29:00 Test Item Value Reference Range Interpretation Comments POC-GLUCOSE METER 114 mg/dL 70-110 H TESTED AT [place] [address] ([facility]) (test code = ALONDRA Coy [place] 1538) [address] POCT-GLUCOSE [id number] 12:02:00 Test Item Value Reference Range Interpretation Comments POC-GLUCOSE METER 146 mg/dL 70-110 H TESTED AT [place] [address] ([facility]) (test code = ALONDRA Coy [place] 1538) [address] POCT-GLUCOSE [id number] 08:14:00 Test Item Value Reference Range Interpretation Comments POC-GLUCOSE METER 101 mg/dL 70-110 TESTED AT [place] [address] ([facility]) (test code = ALONDRA Coy [place] 1538) [address] POCT-GLUCOSE [id number] 23:17:00 Test Item Value Reference Range Interpretation Comments POC-GLUCOSE METER 112 mg/dL 70-110 H TESTED AT [place] [address] ([facility]) (test code = ALONDRA Coy [place] 1538) [address] POCT-GLUCOSE [id number] 17:06:00 Test Item Value Reference Range Interpretation Comments POC-GLUCOSE METER 114 mg/dL 70-110 H TESTED AT [place] [address] ([facility]) (test code = ALONDAR Coy [place] 1538) [address] POCT-GLUCOSE [id number] 13:08:00 Test Item Value Reference Range Interpretation Comments POC-GLUCOSE METER 110 mg/dL 70-110 TESTED AT [place] [address] ([facility]) (test code = ALONDRA Coy [place] 1538) [address] POCT-GLUCOSE [id number] 08:26:00 Test Item Value Reference Range Interpretation Comments POC-GLUCOSE METER 151 mg/dL 70-110 H TESTED AT [place] [address] ([facility]) (test code = ALONDRA Coy [place] 1538) [address] POCT-GLUCOSE [id number] 23:22:00 Test Item Value Reference Range Interpretation Comments POC-GLUCOSE METER 116 mg/dL 70-110 H TESTED AT [place] [address] ([facility]) (test code = ALONDRA Coy [place] 1538) [address] POCT-GLUCOSE [id number] 19:01:00 Test Item Value Reference Range Interpretation Comments POC-GLUCOSE METER 145 mg/dL 70-110 H TESTED AT [place] [address] ([facility]) (test code = BERTPREETHI [place] 1538) [address] POCT-GLUCOSE [id number] 13:42:00 Test Item Value Reference Range Interpretation Comments POC-GLUCOSE METER 119 mg/dL 70-110 H TESTED AT [place] [address] ([facility]) (test code = ALONDRA Coy [facility] 1538) [address] TISSUE [id number] 12:34:00Surgical Pathology Report Case: [id number] Authorizing Provider: Geo Farfan, Collected: 11/28/2018 0901 Order[address] Location: [facility] Received: 11/28/2018 1029 PERIOPERATIVE SERVICES Pathologist: Reese Soares MD Specimen: Plaque, Right Carotid ARTERY, RIGHT CAROTID, ENDARTERECTOMY:CALCIFIC ATHEROSCLEROTIC PLAQUE Signing Pathologist Direct Phone Line: [phone]; [phone] stenosis Right carotid plaque Specimen is received in saline labeled with the patient's information and labeled "right carotid plaque" and consists of three irregular fragments of calcified azar-red tissue measuring 2.5 x 2 x 0.3 cm in aggregate. Product Support Consultant sections are submitted in A1 for decalcification.CG/ew PERFORMEDPOCT-GLUCOSE [id number] 10:06:00 Test Item Value Reference Range Interpretation Comments POC-GLUCOSE METER 137 mg/dL 70-110 H TESTED AT [place] [address] ([facility]) (test code = ALONDRA Coy [facility] 1538) [address] C. DIFFICILE GDH [id number] 09:08:00 Test Item Value Reference Range Interpretation Comments CDT TOXIN (test code Negative Negative = [id number]) CDT GDH ANTIGEN Positive Negative A C. difficile present but (test code = toxin not detec dmitry. [id number]) Indicates colon ization with non-toxige sabrina strain or level of tox in below detectable leve ls. No need for enteri c isolation. Irving atment is rarely needed ( only when strong clinical suspicion for Clostridium difficile infection) Testing performed by [employer] Rapid Cassette Assay. For GDH, published sensitivity of the assay is 98.7% compared to cytotoxicity testing. For Toxin AB, published sensitivity is 87.8% and specificity 99.4% compared to cytotoxicity testing.Verification of kit performance was done by the [facility] Microbiology Lab prior to clinical use.BASIC METABOLIC [id number] 07:16:00 Test Item Value Reference Range Interpretation Comments SODIUM (BEAKER) 141 meq/L 136-145 (test code = 381) POTASSIUM (BEAKER) 4.1 meq/L 3.5-5.1 (test code = 379) CHLORIDE (BEAKER) 109 meq/L 98-107 H (test code = 382) CO2 (BEAKER) (test 24 meq/L 22-29 code = 355) BLOOD UREA NITROGEN 15 mg/dL 7-21 (BEAKER) (test code = 354) CREATININE (BEAKER) 0.95 mg/dL 0.57-1.25 (test code = 358) GLUCOSE RANDOM 105 mg/dL 70-105 (BEAKER) (test code = 652) CALCIUM (BEAKER) 9.3 mg/dL 8.4-10.2 (test code = 697) EGFR (BEAKER) (test 69 mL/min/1.73 ESTIMA DMITRY GFR IS code = 1092) sq m NOT ACCURATE CREATININE CLEARANCE IN PREDICTING GLOMERULAR FILTRATION RATE . ESTIMATED GFR I S NOT APPLICABLE FOR DIALYSIS PATIEN TS. CBC (HEMOGRAM ONLY)2018-12-05 06:56:00 Test Item Value Reference Range Interpretation Comments WHITE BLOOD CELL COUNT (BEAKER) 6.9 K/ L 3.5-10.5 (test code = 775) RED BLOOD CELL COUNT (BEAKER) 3.26 M/ L 3.93-5.22 L (test code = 761) HEMOGLOBIN (BEAKER) (test code = 10.7 GM/DL 11.2-15.7 L 410) HEMATOCRIT (BEAKER) (test code = 33.4 % 34.1-44.9 L 411) MEAN CORPUSCULAR VOLUME (BEAKER) 102.5 fL 79.4-94.8 H (test code = 753) MEAN CORPUSCULAR HEMOGLOBIN 32.8 pg 25.6-32.2 H (BEAKER) (test code = 751) MEAN CORPUSCULAR HEMOGLOBIN CONC 32.0 GM/DL 32.2-35.5 L (BEAKER) (test code = 752) RED CELL DISTRIBUTION WIDTH 14.2 % 11.7-14.4 (BEAKER) (test code = 412) PLATELET COUNT (BEAKER) (test 289 K/CU MM 150-450 code = 756) MEAN PLATELET VOLUME (AKER) 11.2 fL 9.4-12.3 (test code = 754) NUCLEATED RED BLOOD CELLS 0 /100 WBC 0-0 (AKER) (test code = 413) POCT-GLUCOSE [id number] 22:15:00 Test Item Value Reference Range Interpretation Comments POC-GLUCOSE METER 112 mg/dL 70-110 H TESTED AT [place] [address] ([facility]) (test code = ALONDRA Coy [facility] 1538) [id number] POCT-GLUCOSE [id number] 18:17:00 Test Item Value Reference Range Interpretation Comments POC-GLUCOSE METER 149 mg/dL 70-110 H TESTED AT [place] [address] ([facility]) (test code = [facility] Zbigniew [facility] 1538) [id number] POCT-GLUCOSE [id number] 13:17:00 Test Item Value Reference Range Interpretation Comments POC-GLUCOSE METER 160 mg/dL 70-110 H TESTED AT [place] [address] ([facility]) (test code = [facility]iew [facility] 1538) [id number] POCT-GLUCOSE [id number] 08:01:00 Test Item Value Reference Range Interpretation Comments POC-GLUCOSE METER 110 mg/dL 70-110 TESTED AT [place] [address] ([facility]) (test code = [facility] 1538) [id number] 05:54:00 Test Item Value Reference Range Interpretation Comments MAGNESIUM (BEAKER) 1.9 mg/dL 1.6-2.6 Specimen slightly (test code = 627) hemolyzed BASIC METABOLIC [id number] 05:54:00 Test Item Value Reference Range Interpretation Comments SODIUM (BEAKER) 141 meq/L 136-145 (test code = 381) POTASSIUM (BEAKER) 4.4 meq/L 3.5-5.1 Specimen slightly (test code = 379) hemolyzed CHLORIDE (BEAKER) 109 meq/L 98-107 H (test code = 382) CO2 (BEAKER) (test 23 meq/L 22-29 code = 355) BLOOD UREA NITROGEN 18 mg/dL 7-21 (BEAKER) (test code = 354) CREATININE (BEAKER) 0.91 mg/dL 0.57-1.25 Specimen slightly (test code = 358) hemolyzed GLUCOSE RANDOM 87 mg/dL 70-105 (BEAKER) (test code = 652) CALCIUM (BEAKER) 9.5 mg/dL 8.4-10.2 (test code = 697) EGFR (BEAKER) (test 72 mL/min/1.73 ESTIMA DMITRY GFR IS code = 1092) sq m NOT ACCURATE CREATININE CLEARANCE IN PREDICTING GLOMERULAR FILTRATION RATE . ESTIMATED GFR I S NOT APPLICABLE FOR DIALYSIS PATIEN TS. CBC (HEMOGRAM ONLY)2018-12-04 05:42:00 Test Item Value Reference Range Interpretation Comments WHITE BLOOD CELL COUNT (BEAKER) 6.2 K/ L 3.5-10.5 (test code = 775) RED BLOOD CELL COUNT (BEAKER) 3.39 M/ L 3.93-5.22 L (test code = 761) HEMOGLOBIN (BEAKER) (test code = 11.2 GM/DL 11.2-15.7 410) HEMATOCRIT (BEAKER) (test code = 34.9 % 34.1-44.9 411) MEAN CORPUSCULAR VOLUME (BEAKER) 102.9 fL 79.4-94.8 H (test code = 753) MEAN CORPUSCULAR HEMOGLOBIN 33.0 pg 25.6-32.2 H (BEAKER) (test code = 751) MEAN CORPUSCULAR HEMOGLOBIN CONC 32.1 GM/DL 32.2-35.5 L (BEAKER) (test code = 752) RED CELL DISTRIBUTION WIDTH 14.4 % 11.7-14.4 (BEAKER) (test code = 412) PLATELET COUNT (BEAKER) (test 299 K/CU MM 150-450 code = 756) MEAN PLATELET VOLUME (BEAKER) 11.5 fL 9.4-12.3 (test code = 754) NUCLEATED RED BLOOD CELLS 0 /100 WBC 0-0 (BEAKER) (test code = 413) POCT-GLUCOSE [id number] 22:44:00 Test Item Value Reference Range Interpretation Comments POC-GLUCOSE METER 91 mg/dL 70-110 TESTED AT [facility] 6720 (BEAKER) (test code = [place] [address] 1538) POCT-GLUCOSE [id number] 17:10:00 Test Item Value Reference Range Interpretation Comments POC-GLUCOSE METER 151 mg/dL 70-110 H TESTED AT [place] [address] (BEAKER) (test code = ALONDRA Coy [facility] 1538) [id number] POCT-GLUCOSE [id number] 12:46:00 Test Item Value Reference Range Interpretation Comments POC-GLUCOSE METER 166 mg/dL 70-110 H TESTED AT [place] [address] (BEAKER) (test code = ALONDRA Coy [facility] 1538) [address] POCT-GLUCOSE [id number] 08:21:00 Test Item Value Reference Range Interpretation Comments POC-GLUCOSE METER 147 mg/dL 70-110 H TESTED AT [place] [address] (BEAKER) (test code = ALONDRA Coy [facility] 1538) [id number] CBC (HEMOGRAM ONLY)2018-12-03 07:53:00 Test Item Value Reference Range Interpretation Comments WHITE BLOOD CELL COUNT (BEAKER) 6.1 K/ L 3.5-10.5 (test code = 775) RED BLOOD CELL COUNT (BEAKER) 3.30 M/ L 3.93-5.22 L (test code = 761) HEMOGLOBIN (BEAKER) (test code = 10.7 GM/DL 11.2-15.7 L 410) HEMATOCRIT (BEAKER) (test code = 33.6 % 34.1-44.9 L 411) MEAN CORPUSCULAR VOLUME (BEAKER) 101.8 fL 79.4-94.8 H (test code = 753) MEAN CORPUSCULAR HEMOGLOBIN 32.4 pg 25.6-32.2 H (BEAKER) (test code = 751) MEAN CORPUSCULAR HEMOGLOBIN CONC 31.8 GM/DL 32.2-35.5 L (BEAKER) (test code = 752) RED CELL DISTRIBUTION WIDTH 14.0 % 11.7-14.4 (BEAKER) (test code = 412) PLATELET COUNT (BEAKER) (test 252 K/CU MM 150-450 code = 756) MEAN PLATELET VOLUME (BEAKER) 11.9 fL 9.4-12.3 (test code = 754) NUCLEATED RED BLOOD CELLS 0 /100 WBC 0-0 (BEAKER) (test code = 413) [id number] 06:48:00 Test Item Value Reference Range Interpretation Comments MAGNESIUM (BEAKER) (test code = 1.5 mg/dL 1.6-2.6 L 627) BASIC METABOLIC [id number] 06:48:00 Test Item Value Reference Range Interpretation Comments SODIUM (BEAKER) 142 meq/L 136-145 (test code = 381) POTASSIUM (BEAKER) 4.1 meq/L 3.5-5.1 (test code = 379) CHLORIDE (BEAKER) 108 meq/L 98-107 H (test code = 382) CO2 (BEAKER) (test 25 meq/L 22-29 code = 355) BLOOD UREA NITROGEN 19 mg/dL 7-21 (BEAKER) (test code = 354) CREATININE (BEAKER) 0.95 mg/dL 0.57-1.25 (test code = 358) GLUCOSE RANDOM 119 mg/dL 70-105 H (BEAKER) (test code = 652) CALCIUM (BEAKER) 9.1 mg/dL 8.4-10.2 (test code = 697) EGFR (BEAKER) (test 69 mL/min/1.73 ESTIMA DMITRY GFR IS code = 1092) sq m NOT ACCURATE CREATININE CLEARANCE IN PREDICTING GLOMERULAR FILTRATION RATE . ESTIMATED GFR I S NOT APPLICABLE FOR DIALYSIS PATIEN TS. POCT-GLUCOSE [id number] 23:20:00 Test Item Value Reference Range Interpretation Comments POC-GLUCOSE METER 125 mg/dL 70-110 H TESTED AT [place] [address] ([facility]) (test code = ALONDRA [place] 1538) [address] POCT-GLUCOSE [id number] 17:33:00 Test Item Value Reference Range Interpretation Comments POC-GLUCOSE METER 136 mg/dL 70-110 H TESTED AT [place] [id number] ([facility]) (test code = ALONDRA [place] 1538) [address] POCT-GLUCOSE [id number] 11:43:00 Test Item Value Reference Range Interpretation Comments POC-GLUCOSE METER 168 mg/dL 70-110 H TESTED AT [place] [id number] ([facility]) (test code = ALONDRA [place] 1538) [address] POCT-GLUCOSE [id number] 08:52:00 Test Item Value Reference Range Interpretation Comments POC-GLUCOSE METER 165 mg/dL 70-110 H TESTED AT [facility] 67[address] ([facility]) (test code = ALONDRA [place] 1538) [address] [id number] 05:18:00 Test Item Value Reference Range Interpretation Comments MAGNESIUM (BEAKER) (test code = 1.8 mg/dL 1.6-2.6 627) BASIC METABOLIC [id number] 05:18:00 Test Item Value Reference Range Interpretation Comments SODIUM (BEAKER) 139 meq/L 136-145 (test code = 381) POTASSIUM (BEAKER) 4.3 meq/L 3.5-5.1 (test code = 379) CHLORIDE (BEAKER) 107 meq/L 98-107 (test code = 382) CO2 (BEAKER) (test 24 meq/L 22-29 code = 355) BLOOD UREA NITROGEN 18 mg/dL 7-21 (BEAKER) (test code = 354) CREATININE (BEAKER) 0.98 mg/dL 0.57-1.25 (test code = 358) GLUCOSE RANDOM 138 mg/dL 70-105 H (BEAKER) (test code = 652) CALCIUM (BEAKER) 8.8 mg/dL 8.4-10.2 (test code = 697) EGFR (BEAKER) (test 66 mL/min/1.73 ESTIMA DMITRY GFR IS code = 1092) sq m NOT ACCURATE CREATININE CLEARANCE IN PREDICTING GLOMERULAR FILTRATION RATE . ESTIMATED GFR I S NOT APPLICABLE FOR DIALYSIS PATIEN TS. CBC (HEMOGRAM ONLY)2018-12-02 05:06:00 Test Item Value Reference Range Interpretation Comments WHITE BLOOD CELL COUNT (BEAKER) 5.9 K/ L 3.5-10.5 (test code = 775) RED BLOOD CELL COUNT (BEAKER) 3.14 M/ L 3.93-5.22 L (test code = 761) HEMOGLOBIN (BEAKER) (test code = 10.2 GM/DL 11.2-15.7 L 410) HEMATOCRIT (BEAKER) (test code = 32.6 % 34.1-44.9 L 411) MEAN CORPUSCULAR VOLUME (BEAKER) 103.8 fL 79.4-94.8 H (test code = 753) MEAN CORPUSCULAR HEMOGLOBIN 32.5 pg 25.6-32.2 H (BEAKER) (test code = 751) MEAN CORPUSCULAR HEMOGLOBIN CONC 31.3 GM/DL 32.2-35.5 L (BEAKER) (test code = 752) RED CELL DISTRIBUTION WIDTH 14.3 % 11.7-14.4 (BEAKER) (test code = 412) PLATELET COUNT (BEAKER) (test 206 K/CU MM 150-450 code = 756) MEAN PLATELET VOLUME (BEAKER) 11.8 fL 9.4-12.3 (test code = 754) NUCLEATED RED BLOOD CELLS 0 /100 WBC 0-0 (BEAKER) (test code = 413) POCT-GLUCOSE [id number] 22:03:00 Test Item Value Reference Range Interpretation Comments POC-GLUCOSE METER 206 mg/dL 70-110 H TESTED AT [place] [address] ([facility]) (test code = [facility] 1538) [address] POCT-GLUCOSE [id number] 21:51:00 Test Item Value Reference Range Interpretation Comments POC-GLUCOSE METER 185 mg/dL 70-110 H TESTED AT [place] [address] ([facility]) (test code = [facility] 1538) [address] POCT-GLUCOSE [id number] 12:51:00 Test Item Value Reference Range Interpretation Comments POC-GLUCOSE METER 180 mg/dL 70-110 H TESTED AT [place] [address] ([facility]) (test code = [facility] 1538) [address] POCT-GLUCOSE [id number] 09:51:00 Test Item Value Reference Range Interpretation Comments POC-GLUCOSE METER 171 mg/dL 70-110 H TESTED AT [place] [address] ([facility]) (test code = [facility] 1538) [address] [id number] 06:42:00 Test Item Value Reference Range Interpretation Comments MAGNESIUM (BEAKER) (test code = 1.6 mg/dL 1.6-2.6 627) BASIC METABOLIC [id number] 06:42:00 Test Item Value Reference Range Interpretation Comments SODIUM (BEAKER) 140 meq/L 136-145 (test code = 381) POTASSIUM (BEAKER) 3.9 meq/L 3.5-5.1 (test code = 379) CHLORIDE (BEAKER) 108 meq/L 98-107 H (test code = 382) CO2 (BEAKER) (test 25 meq/L 22-29 code = 355) BLOOD UREA NITROGEN 12 mg/dL 7-21 (BEAKER) (test code = 354) CREATININE (BEAKER) 0.91 mg/dL 0.57-1.25 (test code = 358) GLUCOSE RANDOM 133 mg/dL 70-105 H (BEAKER) (test code = 652) CALCIUM (BEAKER) 9.2 mg/dL 8.4-10.2 (test code = 697) EGFR (BEAKER) (test 72 mL/min/1.73 ESTIMA DMITRY GFR IS code = 1092) sq m NOT ACCURATE CREATININE CLEARANCE IN PREDICTING GLOMERULAR FILTRATION RATE . ESTIMATED GFR I S NOT APPLICABLE FOR DIALYSIS PATIEN TS. HEPATIC FUNCTION [id number] 06:42:00 Test Item Value Reference Range Interpretation Comments TOTAL PROTEIN (BEAKER) (test code = 6.6 gm/dL 6.0-8.3 770) ALBUMIN (BEAKER) (test code = 1145) 3.2 g/dL 3.5-5.0 L BILIRUBIN TOTAL (BEAKER) (test code 0.6 mg/dL 0.2-1.2 = 377) BILIRUBIN DIRECT (BEAKER) (test 0.3 mg/dL 0.1-0.5 code = 706) ALKALINE PHOSPHATASE (BEAKER) (test 56 U/L 40-150 code = 346) AST (SGOT) (BEAKER) (test code = 35 U/L 5-34 H 353) ALT (SGPT) (BEAKER) (test code = 32 U/L 6-55 347) CBC W/PLT COUNT & AUTO [id number] 05:25:00 Test Item Value Reference Range Interpretation Comments WHITE BLOOD CELL COUNT (BEAKER) 6.0 K/ L 3.5-10.5 (test code = 775) RED BLOOD CELL COUNT (BEAKER) 2.96 M/ L 3.93-5.22 L (test code = 761) HEMOGLOBIN (BEAKER) (test code = 9.7 GM/DL 11.2-15.7 L 410) HEMATOCRIT (BEAKER) (test code = 30.9 % 34.1-44.9 L 411) MEAN CORPUSCULAR VOLUME (BEAKER) 104.4 fL 79.4-94.8 H (test code = 753) MEAN CORPUSCULAR HEMOGLOBIN 32.8 pg 25.6-32.2 H (BEAKER) (test code = 751) MEAN CORPUSCULAR HEMOGLOBIN CONC 31.4 GM/DL 32.2-35.5 L (BEAKER) (test code = 752) RED CELL DISTRIBUTION WIDTH 14.3 % 11.7-14.4 (BEAKER) (test code = 412) PLATELET COUNT (BEAKER) (test 185 K/CU MM 150-450 code = 756) MEAN PLATELET VOLUME (BEAKER) 12.3 fL 9.4-12.3 (test code = 754) NUCLEATED RED BLOOD CELLS 0 /100 WBC 0-0 (BEAKER) (test code = 413) NEUTROPHILS RELATIVE PERCENT 61 % (BEAKER) (test code = 429) LYMPHOCYTES RELATIVE PERCENT 26 % (BEAKER) (test code = 430) MONOCYTES RELATIVE PERCENT 8 % (BEAKER) (test code = 431) EOSINOPHILS RELATIVE PERCENT 3 % (BEAKER) (test code = 432) BASOPHILS RELATIVE PERCENT 1 % (BEAKER) (test code = 437) NEUTROPHILS ABSOLUTE COUNT 3.61 K/ L 1.56-6.13 (BEAKER) (test code = 670) LYMPHOCYTES ABSOLUTE COUNT 1.57 K/ L 1.18-3.74 (BEAKER) (test code = 414) MONOCYTES ABSOLUTE COUNT (BEAKER) 0.49 K/ L 0.24-0.36 H (test code = 415) EOSINOPHILS ABSOLUTE COUNT 0.17 K/ L 0.04-0.36 (BEAKER) (test code = 416) BASOPHILS ABSOLUTE COUNT (BEAKER) 0.04 K/ L 0.01-0.08 (test code = 417) IMMATURE GRANULOCYTES-RELATIVE 2 % 0-1 H PERCENT (BEAKER) (test code = 2801) POCT-GLUCOSE [id number] 21:31:00 Test Item Value Reference Range Interpretation Comments POC-GLUCOSE METER 143 mg/dL 70-110 H TESTED AT [place] [address] ([facility]) (test code = ALONDRA Coy [place] 1538) [address] POCT-GLUCOSE [id number] 18:26:00 Test Item Value Reference Range Interpretation Comments POC-GLUCOSE METER 252 mg/dL 70-110 H TESTED AT [place] [address] ([facility]) (test code = ALONDRA Coy [place] 1538) [address] POCT-GLUCOSE [id number] 12:40:00 Test Item Value Reference Range Interpretation Comments POC-GLUCOSE METER 161 mg/dL 70-110 H TESTED AT [facility] 6720 (BEAKER) (test code = [facility] 1538) [address] HEMOGLOBIN [id number] 11:08:00 Test Item Value Reference Range Interpretation Comments HEMOGLOBIN A1C (BEAKER) (test code = 7.2 % 4.3-6.1 H 368) POCT-GLUCOSE [id number] 08:17:00 Test Item Value Reference Range Interpretation Comments POC-GLUCOSE METER 162 mg/dL 70-110 H TESTED AT [facility] 6720 ([facility]) (test code = [facility] 1538) [address] POCT-GLUCOSE [id number] 07:48:00 Test Item Value Reference Range Interpretation Comments POC-GLUCOSE METER 158 mg/dL 70-110 H TESTED AT [facility] 67 ([facility]) (test code = [facility] 1538) [address] [id number] 06:55:00 Test Item Value Reference Range Interpretation Comments MAGNESIUM (BEAKER) (test code = 1.4 mg/dL 1.6-2.6 L 627) BASIC METABOLIC [id number] 06:55:00 Test Item Value Reference Range Interpretation Comments SODIUM (BEAKER) 140 meq/L 136-145 (test code = 381) POTASSIUM (BEAKER) 3.9 meq/L 3.5-5.1 (test code = 379) CHLORIDE (BEAKER) 107 meq/L 98-107 (test code = 382) CO2 (BEAKER) (test 24 meq/L 22-29 code = 355) BLOOD UREA NITROGEN 12 mg/dL 7-21 (BEAKER) (test code = 354) CREATININE (BEAKER) 0.93 mg/dL 0.57-1.25 (test code = 358) GLUCOSE RANDOM 143 mg/dL 70-105 H (BEAKER) (test code = 652) CALCIUM (BEAKER) 9.0 mg/dL 8.4-10.2 (test code = 697) EGFR (BEAKER) (test 70 mL/min/1.73 ESTIMA DMITRY GFR IS code = 1092) sq m NOT ACCURATE CREATININE CLEARANCE IN PREDICTING GLOMERULAR FILTRATION RATE . ESTIMATED GFR I S NOT APPLICABLE FOR DIALYSIS PATIEN TS. LIPID [id number] 06:55:00 Test Item Value Reference Range Interpretation Comments TRIGLYCERIDES (BEAKER) (test code = 120 mg/dL 540) CHOLESTEROL (BEAKER) (test code = 123 mg/dL 631) HDL CHOLESTEROL (BEAKER) (test code 21 mg/dL = 976) LDL CHOLESTEROL CALCULATED (BEAKER) 78 mg/dL (test code = 633) Triglyceride Reference Range: Low Risk <150 Borderline 150-199 High Risk 200-499 Very High Risk >=500Cholesterol Reference Range: Low Risk <200 Borderline 200-239 High Risk >240HDL Cholesterol Reference Range: Low Risk >=60 High Risk <40LDL Cholesterol Reference Range: Optimal <100 Near Optimal 100-129 Borderline 130-159 High 160-189 Very High >=190CBC W/PLT COUNT & AUTO [id number] 06:39:00 Test Item Value Reference Range Interpretation Comments WHITE BLOOD CELL COUNT (BEAKER) 6.1 K/ L 3.5-10.5 (test code = 775) RED BLOOD CELL COUNT (BEAKER) 3.35 M/ L 3.93-5.22 L (test code = 761) HEMOGLOBIN (BEAKER) (test code = 10.9 GM/DL 11.2-15.7 L 410) HEMATOCRIT (BEAKER) (test code = 34.4 % 34.1-44.9 411) MEAN CORPUSCULAR VOLUME (BEAKER) 102.7 fL 79.4-94.8 H (test code = 753) MEAN CORPUSCULAR HEMOGLOBIN 32.5 pg 25.6-32.2 H (BEAKER) (test code = 751) MEAN CORPUSCULAR HEMOGLOBIN CONC 31.7 GM/DL 32.2-35.5 L (BEAKER) (test code = 752) RED CELL DISTRIBUTION WIDTH 14.3 % 11.7-14.4 (BEAKER) (test code = 412) PLATELET COUNT (BEAKER) (test 182 K/CU MM 150-450 code = 756) MEAN PLATELET VOLUME (BEAKER) 12.9 fL 9.4-12.3 H (test code = 754) NUCLEATED RED BLOOD CELLS 0 /100 WBC 0-0 (BEAKER) (test code = 413) NEUTROPHILS RELATIVE PERCENT 70 % (BEAKER) (test code = 429) LYMPHOCYTES RELATIVE PERCENT 18 % (BEAKER) (test code = 430) MONOCYTES RELATIVE PERCENT 7 % (BEAKER) (test code = 431) EOSINOPHILS RELATIVE PERCENT 3 % (BEAKER) (test code = 432) BASOPHILS RELATIVE PERCENT 0 % (BEAKER) (test code = 437) NEUTROPHILS ABSOLUTE COUNT 4.29 K/ L 1.56-6.13 (BEAKER) (test code = 670) LYMPHOCYTES ABSOLUTE COUNT 1.10 K/ L 1.18-3.74 L (BEAKER) (test code = 414) MONOCYTES ABSOLUTE COUNT (BEAKER) 0.44 K/ L 0.24-0.36 H (test code = 415) EOSINOPHILS ABSOLUTE COUNT 0.18 K/ L 0.04-0.36 (BEAKER) (test code = 416) BASOPHILS ABSOLUTE COUNT (BEAKER) 0.02 K/ L 0.01-0.08 (test code = 417) IMMATURE GRANULOCYTES-RELATIVE 2 % 0-1 H PERCENT (BEAKER) (test code = 2801) POCT-GLUCOSE [id number] 21:50:00 Test Item Value Reference Range Interpretation Comments POC-GLUCOSE METER 185 mg/dL 70-110 H TESTED AT [place] [address] ([facility]) (test code = [facility] 1538) [address] POCT-GLUCOSE [id number] 17:26:00 Test Item Value Reference Range Interpretation Comments POC-GLUCOSE METER 201 mg/dL 70-110 H TESTED AT [place] [address] ([facility]) (test code = [facility] 1538) [address] POCT-GLUCOSE [id number] 15:25:00 Test Item Value Reference Range Interpretation Comments POC-GLUCOSE METER 136 mg/dL 70-110 H TESTED AT [place] [address] ([facility]) (test code = [facility] 1538) [address] POCT-GLUCOSE [id number] 13:38:00 Test Item Value Reference Range Interpretation Comments POC-GLUCOSE METER 136 mg/dL 70-110 H TESTED AT [place] [address] ([facility]) (test code = [facility] 1538) [address] POCT-GLUCOSE [id number] 11:05:00 Test Item Value Reference Range Interpretation Comments POC-GLUCOSE METER 183 mg/dL 70-110 H TESTED AT [place] [address] ([facility]) (test code = [facility] 1538) [address] [id number] 04:18:00 Test Item Value Reference Range Interpretation Comments MAGNESIUM (BEAKER) (test code = 1.4 mg/dL 1.6-2.6 L 627) BASIC METABOLIC [id number] 04:18:00 Test Item Value Reference Range Interpretation Comments SODIUM (BEAKER) 142 meq/L 136-145 (test code = 381) POTASSIUM (BEAKER) 3.6 meq/L 3.5-5.1 (test code = 379) CHLORIDE (BEAKER) 111 meq/L 98-107 H (test code = 382) CO2 (BEAKER) (test 22 meq/L 22-29 code = 355) BLOOD UREA NITROGEN 21 mg/dL 7-21 (BEAKER) (test code = 354) CREATININE (BEAKER) 0.95 mg/dL 0.57-1.25 (test code = 358) GLUCOSE RANDOM 128 mg/dL 70-105 H (BEAKER) (test code = 652) CALCIUM (BEAKER) 8.6 mg/dL 8.4-10.2 (test code = 697) EGFR (BEAKER) (test 69 mL/min/1.73 ESTIMA DMITRY GFR IS code = 1092) sq m NOT ACCURATE CREATININE CLEARANCE IN PREDICTING GLOMERULAR FILTRATION RATE . ESTIMATED GFR I S NOT APPLICABLE FOR DIALYSIS PATIEN TS. CBC W/PLT COUNT & AUTO [id number] 03:47:00 Test Item Value Reference Range Interpretation Comments WHITE BLOOD CELL COUNT (BEAKER) 6.1 K/ L 3.5-10.5 (test code = 775) RED BLOOD CELL COUNT (BEAKER) 2.88 M/ L 3.93-5.22 L (test code = 761) HEMOGLOBIN (BEAKER) (test code = 9.6 GM/DL 11.2-15.7 L 410) HEMATOCRIT (BEAKER) (test code = 29.2 % 34.1-44.9 L 411) MEAN CORPUSCULAR VOLUME (BEAKER) 101.4 fL 79.4-94.8 H (test code = 753) MEAN CORPUSCULAR HEMOGLOBIN 33.3 pg 25.6-32.2 H (BEAKER) (test code = 751) MEAN CORPUSCULAR HEMOGLOBIN CONC 32.9 GM/DL 32.2-35.5 (BEAKER) (test code = 752) RED CELL DISTRIBUTION WIDTH 14.0 % 11.7-14.4 (BEAKER) (test code = 412) PLATELET COUNT (BEAKER) (test 126 K/CU MM 150-450 L code = 756) MEAN PLATELET VOLUME (BEAKER) 12.6 fL 9.4-12.3 H (test code = 754) NUCLEATED RED BLOOD CELLS 0 /100 WBC 0-0 (BEAKER) (test code = 413) NEUTROPHILS RELATIVE PERCENT 73 % (BEAKER) (test code = 429) LYMPHOCYTES RELATIVE PERCENT 15 % (BEAKER) (test code = 430) MONOCYTES RELATIVE PERCENT 8 % (BEAKER) (test code = 431) EOSINOPHILS RELATIVE PERCENT 2 % (BEAKER) (test code = 432) BASOPHILS RELATIVE PERCENT 0 % (BEAKER) (test code = 437) NEUTROPHILS ABSOLUTE COUNT 4.44 K/ L 1.56-6.13 (BEAKER) (test code = 670) LYMPHOCYTES ABSOLUTE COUNT 0.90 K/ L 1.18-3.74 L (BEAKER) (test code = 414) MONOCYTES ABSOLUTE COUNT (BEAKER) 0.48 K/ L 0.24-0.36 H (test code = 415) EOSINOPHILS ABSOLUTE COUNT 0.14 K/ L 0.04-0.36 (BEAKER) (test code = 416) BASOPHILS ABSOLUTE COUNT (BEAKER) 0.02 K/ L 0.01-0.08 (test code = 417) IMMATURE GRANULOCYTES-RELATIVE 1 % 0-1 PERCENT (BEAKER) (test code = 2801) BASIC METABOLIC [id number] 17:45:00 Test Item Value Reference Range Interpretation Comments SODIUM (BEAKER) 141 meq/L 136-145 (test code = 381) POTASSIUM (BEAKER) 3.9 meq/L 3.5-5.1 (test code = 379) CHLORIDE (BEAKER) 110 meq/L 98-107 H (test code = 382) CO2 (BEAKER) (test 25 meq/L 22-29 code = 355) BLOOD UREA NITROGEN 28 mg/dL 7-21 H (BEAKER) (test code = 354) CREATININE (BEAKER) 1.18 mg/dL 0.57-1.25 (test code = 358) GLUCOSE RANDOM 147 mg/dL 70-105 H (BEAKER) (test code = 652) CALCIUM (BEAKER) 9.0 mg/dL 8.4-10.2 (test code = 697) EGFR (BEAKER) (test 54 mL/min/1.73 ESTIMA DMITRY GFR IS code = 1092) sq m NOT ACCURATE CREATININE CLEARANCE IN PREDICTING GLOMERULAR FILTRATION RATE . ESTIMATED GFR I S NOT APPLICABLE FOR DIALYSIS PATIEN TS. POCT-GLUCOSE [id number] 14:36:00 Test Item Value Reference Range Interpretation Comments POC-GLUCOSE METER 158 mg/dL 70-110 H TESTED AT [facility] 6720 (BEAKER) (test code = AL[place]DR[place] 1538) [address] [id number] 10:50:00 Test Item Value Reference Range Interpretation Comments PHOSPHORUS (BEAKER) (test code = 3.1 mg/dL 2.3-4.7 604) [id number] 10:50:00 Test Item Value Reference Range Interpretation Comments MAGNESIUM (BEAKER) (test code = 1.4 mg/dL 1.6-2.6 L 627) BASIC METABOLIC [id number] 10:50:00 Test Item Value Reference Range Interpretation Comments SODIUM (BEAKER) 137 meq/L 136-145 (test code = 381) POTASSIUM (BEAKER) 3.6 meq/L 3.5-5.1 (test code = 379) CHLORIDE (BEAKER) 107 meq/L 98-107 (test code = 382) CO2 (BEAKER) (test 18 meq/L 22-29 L code = 355) BLOOD UREA NITROGEN 36 mg/dL 7-21 H (BEAKER) (test code = 354) CREATININE (BEAKER) 1.54 mg/dL 0.57-1.25 H (test code = 358) GLUCOSE RANDOM 139 mg/dL 70-105 H (BEAKER) (test code = 652) CALCIUM (BEAKER) 8.7 mg/dL 8.4-10.2 (test code = 697) EGFR (BEAKER) (test 39 mL/min/1.73 ESTIMA DMITRY GFR IS code = 1092) sq m NOT ACCURATE CREATININE CLEARANCE IN PREDICTING GLOMERULAR FILTRATION RATE . ESTIMATED GFR I S NOT APPLICABLE FOR DIALYSIS PATIEN TS. LACTIC ACID, ARTERIAL, WHOLE [id number] 10:47:00 Test Item Value Reference Range Interpretation Comments LACTATE BLOOD ARTERIAL (2) 0.7 mmol/L 0.5-2.2 (BEAKER) (test code = 2874) BLOOD GAS, [id number] 10:36:00 Test Item Value Reference Range Interpretation Comments PH ARTERIAL (BEAKER) (test code = 7.41 7.35-7.45 383) PCO2 ARTERIAL (BEAKER) (test code 33 mmHg 35-45 L = 384) PO2 ARTERIAL (BEAKER) (test code 157 mmHg 80-90 H = 385) O2 SATURATION ARTERIAL (BEAKER) 99.1 % 96.0-97.0 H (test code = 386) HCO3 ARTERIAL (BEAKER) (test code 20 mmol/L 21-29 L = 388) BASE EXCESS ARTERIAL (BEAKER) -3.5 mmol/L -2.0-3.0 L (test code = 387) PATIENT TEMPERATURE (BEAKER) 36.8 C (test code = 1818) FIO2 (BEAKER) (test code = 1819) 32.0 % CALCIUM, [id number] 10:36:00 Test Item Value Reference Range Interpretation Comments CALCIUM IONIZED (BEAKER) (test 1.12 mmol/L 1.12-1.27 code = 698) PH, BLOOD (BEAKER) (test code = 7.41 1810) CBC W/PLT COUNT & AUTO [id number] 10:32:00 Test Item Value Reference Range Interpretation Comments WHITE BLOOD CELL COUNT (BEAKER) 8.9 K/ L 3.5-10.5 (test code = 775) RED BLOOD CELL COUNT (BEAKER) 3.38 M/ L 3.93-5.22 L (test code = 761) HEMOGLOBIN (BEAKER) (test code = 11.2 GM/DL 11.2-15.7 410) HEMATOCRIT (BEAKER) (test code = 34.3 % 34.1-44.9 411) MEAN CORPUSCULAR VOLUME (BEAKER) 101.5 fL 79.4-94.8 H (test code = 753) MEAN CORPUSCULAR HEMOGLOBIN 33.1 pg 25.6-32.2 H (BEAKER) (test code = 751) MEAN CORPUSCULAR HEMOGLOBIN CONC 32.7 GM/DL 32.2-35.5 (BEAKER) (test code = 752) RED CELL DISTRIBUTION WIDTH 14.4 % 11.7-14.4 (BEAKER) (test code = 412) PLATELET COUNT (BEAKER) (test 142 K/CU MM 150-450 L code = 756) MEAN PLATELET VOLUME (BEAKER) 12.9 fL 9.4-12.3 H (test code = 754) NUCLEATED RED BLOOD CELLS 0 /100 WBC 0-0 (BEAKER) (test code = 413) NEUTROPHILS RELATIVE PERCENT 77 % (BEAKER) (test code = 429) LYMPHOCYTES RELATIVE PERCENT 12 % (BEAKER) (test code = 430) MONOCYTES RELATIVE PERCENT 8 % (BEAKER) (test code = 431) EOSINOPHILS RELATIVE PERCENT 1 % (BEAKER) (test code = 432) BASOPHILS RELATIVE PERCENT 0 % (BEAKER) (test code = 437) NEUTROPHILS ABSOLUTE COUNT 6.87 K/ L 1.56-6.13 H (BEAKER) (test code = 670) LYMPHOCYTES ABSOLUTE COUNT 1.10 K/ L 1.18-3.74 L (BEAKER) (test code = 414) MONOCYTES ABSOLUTE COUNT (BEAKER) 0.69 K/ L 0.24-0.36 H (test code = 415) EOSINOPHILS ABSOLUTE COUNT 0.10 K/ L 0.04-0.36 (BEAKER) (test code = 416) BASOPHILS ABSOLUTE COUNT (BEAKER) 0.03 K/ L 0.01-0.08 (test code = 417) IMMATURE GRANULOCYTES-RELATIVE 1 % 0-1 PERCENT (BEAKER) (test code = 2801) COMPREHENSIVE METABOLIC [id number] 07:28:00 Test Item Value Reference Range Interpretation Comments TOTAL PROTEIN 7.4 gm/dL 6.0-8.3 Specimen sligh tly (BEAKER) (test code = hemoly zed 770) ALBUMIN (BEAKER) 3.6 g/dL 3.5-5.0 Specimen sl ightly (test code = 1145) hemolyzed ALKALINE PHOSPHATASE 77 U/L 40-150 (BEAKER) (test code = 346) BILIRUBIN TOTAL 0.8 mg/dL 0.2-1.2 Specimen sli ghtly (BEAKER) (test code = hemoly zed 377) SODIUM (BEAKER) (test 140 meq/L 136-145 code = 381) POTASSIUM (BEAKER) 4.2 meq/L 3.5-5.1 Specimen slightly (test code = 379) hemolyzed CHLORIDE (BEAKER) 106 meq/L 98-107 (test code = 382) CO2 (BEAKER) (test 24 meq/L 22-29 code = 355) BLOOD UREA NITROGEN 41 mg/dL 7-21 H (BEAKER) (test code = 354) CREATININE (BEAKER) 1.76 mg/dL 0.57-1.25 H Specimen slightly (test code = 358) hemolyzed GLUCOSE RANDOM 98 mg/dL 70-105 (BEAKER) (test code = 652) CALCIUM (BEAKER) 9.9 mg/dL 8.4-10.2 (test code = 697) AST (SGOT) (BEAKER) 143 U/L 5-34 H Specimen slightly (test code = 353) hemolyzed ALT (SGPT) (BEAKER) 112 U/L 6-55 H Specimen slightly (test code = 347) hemolyzed EGFR (BEAKER) (test 34 mL/min/1.73 ESTIMA DMITRY GFR IS code = 1092) sq m NOT ACCURATE CREATININE CLEARANCE IN PREDICTING GLOMERULAR FILTRATION RATE . ESTIMATED GFR I S NOT APPLICABLE FOR DIALYSIS PATIEN TS. RAD, CHEST, 1 VIEW, NON [id number] 07:18:00Reason for exam:->CV pre- opShould this be performed at the bedside?->YesFINAL REPORT INDICATION: CV pre-op COMPARISON: None TECHNIQUE: Single frontalview of the chest. FINDINGS: Lungs and pleura: Clear lungs. No effusion.Heart and mediastinum: Normal heart size. Unremarkable mediastinal contours.Osseous structures: No acute abnormality.Other: None. IMPRESSION: No acute intrathoracic abnormality. Signed: JR Victor M, Juan Jose Skinner Verified Date/Time: 11/28/2018 07:18:00 Reading Location: [facility] Radiology Reading Room APTT 2018-11-28 07:13:00 Test Item Value Reference Range Interpretation Comments PARTIAL THROMBOPLASTIN TIME 38.8 seconds 22.5-36.0 H (BEAKER) (test code = 760) PROTHROMBIN TIME/[id number] 07:12:00 Test Item Value Reference Range Interpretation Comments PROTIME (BEAKER) (test code = 14.3 seconds 11.7-14.7 759) INR (BEAKER) (test code = 370) 1.1 <=5.9 RECOMMENDED COUMADIN/WARFARIN INR THERAPY RANGESSTANDARD DOSE: 2.0 - 3.0 Includes: PROPHYLAXIS forvenous thrombosis, systemic embolization; TREATMENT for venous thrombosis and/or pulmonary embolus.HIGH RISK: Target INR is 2.5-3.5 for patients with mechanical heart valves.CBC W/PLT COUNT & AUTO DIFFERENTIAL 2018-11-28 07:04:00 Test Item Value Reference Range Interpretation Comments WHITE BLOOD CELL COUNT (BEAKER) 6.0 K/ L 3.5-10.5 (test code = 775) RED BLOOD CELL COUNT (BEAKER) 3.34 M/ L 3.93-5.22 L (test code = 761) HEMOGLOBIN (BEAKER) (test code = 11.2 GM/DL 11.2-15.7 410) HEMATOCRIT (BEAKER) (test code = 34.2 % 34.1-44.9 411) MEAN CORPUSCULAR VOLUME (BEAKER) 102.4 fL 79.4-94.8 H (test code = 753) MEAN CORPUSCULAR HEMOGLOBIN 33.5 pg 25.6-32.2 H (BEAKER) (test code = 751) MEAN CORPUSCULAR HEMOGLOBIN CONC 32.7 GM/DL 32.2-35.5 (BEAKER) (test code = 752) RED CELL DISTRIBUTION WIDTH 14.6 % 11.7-14.4 H (BEAKER) (test code = 412) PLATELET COUNT (BEAKER) (test 151 K/CU MM 150-450 code = 756) MEAN PLATELET VOLUME (BEAKER) 13.5 fL 9.4-12.3 H (test code = 754) NUCLEATED RED BLOOD CELLS 0 /100 WBC 0-0 (BEAKER) (test code = 413) NEUTROPHILS RELATIVE PERCENT 68 % (BEAKER) (test code = 429) LYMPHOCYTES RELATIVE PERCENT 19 % (BEAKER) (test code = 430) MONOCYTES RELATIVE PERCENT 10 % (BEAKER) (test code = 431) EOSINOPHILS RELATIVE PERCENT 2 % (BEAKER) (test code = 432) BASOPHILS RELATIVE PERCENT 0 % (BEAKER) (test code = 437) NEUTROPHILS ABSOLUTE COUNT 4.08 K/ L 1.56-6.13 (BEAKER) (test code = 670) LYMPHOCYTES ABSOLUTE COUNT 1.13 K/ L 1.18-3.74 L (BEAKER) (test code = 414) MONOCYTES ABSOLUTE COUNT (BEAKER) 0.58 K/ L 0.24-0.36 H (test code = 415) EOSINOPHILS ABSOLUTE COUNT 0.12 K/ L 0.04-0.36 (BEAKER) (test code = 416) BASOPHILS ABSOLUTE COUNT (BEAKER) 0.02 K/ L 0.01-0.08 (test code = 417) IMMATURE GRANULOCYTES-RELATIVE 1 % 0-1 PERCENT (BEAKER) (test code = 2801)
[2020-06-18 21:57] LABS: Absolute Lymphocytes (CBC) 1.1 K/uL (0.7-4.9); Basophils % 0.6 % (0-1.3); Hematocrit 36.1 % (36.0-45.0); Lymphocytes % 22.9 % (15.3-44.8); MPV 11.5 fL (7.6-11.3); RBC Red Blood Cell Count 3.83 M/uL (3.86-4.86)
[2020-06-18 22:11] LABS: Albumin 3.3 g/dL (3.4-5.0); Bilirubin Direct 0.2 mg/dL (0-0.2); Bilirubin Total 0.5 mg/dL (0.2-1.0); Potassium 3.6 mmol/L (3.5-5.1); Protein, Total 7.9 g/dL (6.4-8.2)
[2020-06-18 22:30] LABS: Anisocytosis 1+; Blood Morphology Comment NOTED (NOT SEEN); Platelet Estimate ADEQ; White Blood Cell Scan OK
[2020-06-18 22:43] LABS: Urine Bacteria LOADED /HPF (<20)
[2020-06-18 22:44] LABS: Urine Amorphous Sediment 2+ /HPF (NONE SEEN); Urine Culture Reflex Order NOT NEEDED; Urine Mucus 1+ /HPF (NONE SEEN)
[2020-06-18] MEDS ORDERED: NA CHLORIDE 0.9% 1,000 ML ONE (22:46)
[2020-06-18] MEDS ORDERED: D50W 25 GM/50 ML SYRINGE/VIAL IV ONE (23:17)
[2020-06-18] MEDS ORDERED: CEFTRIAXONE/SWI 1gm 1 GM/10 ML SYR ONE (23:17)
--- NOTE | 2020-06-19 00:50 | P.HP ---
Certification for Inpatient Patient admitted to: Inpatient With expected LOS: >2 Midnights Practitioner: I am a practitioner with admitting privileges, knowledge of patient current condition, hospital course, and medical plan of care. Services: Services provided to patient in accordance with Admission requirements found in Title 42 Section 412.3 of the Code of Federal Regulations Patient History Date of Service: 06/19/20 Reason for admission: Abdominal pain History of Present Illness: 80-year-old woman with a history of diabetes was brought to the emergency department with a complaint of abdominal pain. Patient is a poor historian and cannot provide enough history. She was found to have UTI, borderline hypoglycemia and acute renal failure in the ED. Patient denies any fever. She endorsed good oral intake. She denies any dysuria. Allergies No Known Allergies Allergy (Verified 10/10/18 13:47) Home Medications: Aspirin [Aspirin EC 81 MG] 1 tab PO DAILY 09/08/15 Isosorbide [place] [Imdur*] 1 tab PO DAILY 09/08/15 Metoprolol Tartrate 100 mg PO BID 09/08/15 Solifenacin [Vesicare*] 5 mg PO BEDTIME 09/08/15 Insulin NPH Hum/Reg Insulin Hm [Humulin 70/30 Kwikpen] 20 unit SQ DAILY AT SUPPER 02/07/16 Insulin NPH Hum/Reg Insulin Hm [Humulin 70/30 Kwikpen] 32 unit SQ DAILY WITH BREAKFAST 02/07/16 Atorvastatin Calcium 40 mg PO DAILY 09/10/18 Metformin ER [Glucophage ER*] 1 tab PO BID 09/10/18 Metronidazole 500 mg PO DAILY 09/10/18 Polyethylene Glycol 3350 [Miralax] 17 gm PO DAILY PRN 09/10/18 Trazodone HCl 50 mg PO BEDTIME 09/10/18 Furosemide [Lasix] 20 mg PO DAILY #30 tablet 09/11/18 Spironolactone [Aldactone*] 25 mg PO DAILY #30 tab 09/11/18 lisinopriL [Lisinopril] 10 mg PO DAILY #30 tablet 09/11/18 - Past Medical/Surgical History Diabetic: Yes -: IDDM -: HTN -: HIGH CHOLESTEROL -: CVA -: HYSTERECTOMY - Family History Family History: Reviewed- Non-Contributory - Social History Alcohol use: No CD- Drugs: No Caffeine use: Yes Review of Systems Other: Except as documented, all other systems reviewed and negative. Physical Examination - Physical Exam General: In no apparent distress, Other (Awake) HEENT: Mucous membr. moist/pink Neck: Supple, JVD not distended Respiratory: Clear to auscultation bilaterally, Normal air movement Cardiovascular: No edema, Regular rate/rhythm, Normal S1 S2 Gastrointestinal: Normal bowel sounds, Soft and benign, Non-distended, No tenderness Musculoskeletal: No swelling, No erythema Integumentary: No rashes Neurological: Normal strength at 5/5 x4 extr, Cranial nerves 3-12 intact - Studies Laboratory Data (last 24 hrs) 06/18/20 21:37: WBC 4.9, Hgb 12.0, Hct 36.1, Plt Count 111 L 06/18/20 21:37: Sodium 137, Potassium 3.6, BUN 36 H, Creatinine 2.49 H, Glucose 60 L, Total Bilirubin 0.5, AST 56 H, ALT 30, Alkaline Phosphatase 54, Lipase 214 Assessment and Plan - Problems (Diagnosis) (1) UTI (urinary tract infection) Current Visit: Yes Status: Acute (2) Hypoglycemia Current Visit: Yes Status: Acute (3) Chronic systolic heart failure Current Visit: Yes Status: Acute (4) Acute renal failure Current Visit: Yes Status: Acute (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 Start IV Rocephin. Cautious hydration with IV normal saline. Follow urine culture and blood cultures. Monitor electrolytes and renal function Hold NPH insulin due to hypoglycemia. Manage blood sugar with insulin sliding scale. - Advance Directives Does patient have a Living Will: No Does patient have a Durable POA for Healthcare: No
--- NOTE | 2020-06-19 00:50 | EDPHYS ---
Physician Documentation [facility] Name: Estefani Leiva Age: 80 yrs Sex: Female : 1940 Arrival Date: 06/18/2020 Time: 20:41 Bed 17 Private MD: ED Physician Shawn Lucero HPI: 06/18 22:43 This 80 yrs old Black Female presents to ER via EMS with complaints of Abdominal Pain. snw 22:43 The patient presents with abdominal pain. Onset: The symptoms/episode began/occurred snw and became persistent. The symptoms do not radiate. Associated signs and symptoms: Pertinent positives: nausea and vomiting. The symptoms are described as achy, steady. Severity of pain: At its worst the pain was moderate. The patient has experienced similar episodes in the past. It is unknown whether or not the patient has recently seen a physician. Historical: - Allergies: 20:45 PENICILLINS; - Home Meds: 20:45 atorvastatin 40 mg Oral tab 1 tab once daily [Active]; Furosemide Oral [Active]; ah carvedilol oral oral [Active]; Lisinopril Oral [Active]; metformin 1,000 mg Oral tr24 1 tab twice a day [Active]; - Immunization history:: Adult Immunizations unknown. - Social history:: Smoking status: Patient denies any tobacco usage or history of. ROS: 21:54 Constitutional: Negative for fever, chills, and weight loss, Eyes: Negative for injury, snw pain, redness, and discharge, ENT: Negative for injury, pain, and discharge, Neck: Negative for injury, pain, and swelling, Cardiovascular: Negative for chest pain, palpitations, and edema, Respiratory: Negative for shortness of breath, cough, wheezing, and pleuritic chest pain, Abdomen/GI: Negative for abdominal pain, nausea, vomiting, diarrhea, and constipation, Back: Negative for injury and pain, MS/Extremity: Negative for injury and deformity, Skin: Negative for injury, rash, and discoloration, Neuro: Negative for headache, weakness, numbness, tingling, and seizure. 21:54 : Positive for urinary symptoms, of the pelvis. Exam: 21:08 Head/Face: Normocephalic, atraumatic. Eyes: Pupils equal round and reactive to light, snw extra-ocular motions intact. Lids and lashes normal. Conjunctiva and sclera are non-icteric and not injected. Cornea within normal limits. Periorbital areas with no swelling, redness, or edema. ENT: Nares patent. No nasal discharge, no septal abnormalities noted. Tympanic membranes are normal and external auditory canals are clear. Oropharynx with no redness, swelling, or masses, exudates, or evidence of obstruction, uvula midline. Mucous membranes moist. Neck: Trachea midline, no thyromegaly or masses palpated, and no cervical lymphadenopathy. Supple, full range of motion without nuchal rigidity, or vertebral point tenderness. No Meningismus. Chest/axilla: Normal chest wall appearance and motion. Nontender with no deformity. No lesions are appreciated. Cardiovascular: Regular rate and rhythm with a normal S1 and S2. No gallops, murmurs, or rubs. Normal PMI, no JVD. No pulse deficits. Respiratory: Lungs have equal breath sounds bilaterally, clear to auscultation and percussion. No rales, rhonchi or wheezes noted. No increased work of breathing, no retractions or nasal flaring. Abdomen/GI: Soft, non-tender, with normal bowel sounds. No distension or tympany. No guarding or rebound. No evidence of tenderness throughout. Back: No spinal tenderness. No costovertebral tenderness. Full range of motion. Female : pt with pad, states area hurts off and on Skin: Warm, dry with normal turgor. Normal color with no rashes, no lesions, and no evidence of cellulitis. 21:08 Constitutional: The patient appears alert, awake, frail, uncomfortable. Vital Signs: 20:41 Pulse 74; Resp 17; Temp 98.2; Pulse Ox 98% ; ah 21:30 BP 98 / 75; Pulse 78; Resp 18; Pulse Ox 98% on R/A; Pain 0/10; ks7 06/19 00:07 BP 117 / 60; Pulse 70; Resp 18; Pulse Ox 98% on R/A; ea 00:42 BP 105 / 55; Pulse 81; Resp 16; Pulse Ox 98% on R/A; ea 02:37 BP 128 / 76; Pulse 57; Resp 18; Temp 98; Pulse Ox 98% ; ea MDM: 06/18 21:19 Patient medically screened. snw 22:42 Data reviewed: vital signs, nurses notes. Data interpreted: Pulse oximetry: on room air snw is 98 %. Interpretation: normal. Counseling: I had a detailed discussion with the patient and/or guardian regarding: the historical points, exam findings, and any diagnostic results supporting the discharge/admit diagnosis, lab results, radiology results, the need for further work-up and treatment in the hospital. Physician consultation: Lyndon Goel was called at 22:43, was contacted at 22:43, regarding admission, to the telemetry unit. patient's condition. 23:13 ED course: dx: hypoglycemia, UTI, AVRIL, dehydration. snw 06/18 21:18 Order name: Urine Culture snw 06/18 21:18 Order name: Urine Microscopic Only; Complete Time: 22:47 snw 06/18 21:18 Order name: Basic Metabolic Panel; Complete Time: 22:13 snw 06/18 21:18 Order name: CBC with Diff; Complete Time: 22:38 snw 06/18 21:18 Order name: Hepatic Function; Complete Time: 22:13 snw 06/18 21:18 Order name: Lipase; Complete Time: 22:13 snw 06/18 22:01 Order name: CBC Smear Scan; Complete Time: 22:38 EDMS 06/18 22:34 Order name: Abdomen EDMS 06/19 00:54 Order name: Glucose, Ancillary Testing; Complete Time: 00:54 EDMS 06/18 21:18 Order name: Cath; Complete Time: 22:21 snw 06/18 21:18 Order name: IV Saline Lock; Complete Time: 21:42 snw 06/18 21:18 Order name: Labs collected and sent; Complete Time: 21:42 snw Administered Medications: 23:15 Drug: NS 0.9% 1000 ml Route: IV; Rate: 75 ml/hr; Site: left antecubital; ea 06/19 02:38 Follow up: Response: No adverse reaction; IV Status: Infusion continued upon admission 06/18 23:15 Drug: D50W 25 ml Route: IVP; Site: left antecubital; ea 06/19 00:00 Follow up: Response: No adverse reaction 06/18 23:49 Drug: Rocephin 1 grams Route: IV; Rate: calculated rate; Site: left hand; rr5 06/19 00:00 Follow up: Response: No adverse reaction; IV Status: Completed infusion ea 00:52 Drug: D50W 25 ml Route: IVP; Site: left hand; ea 01:00 Follow up: Response: No adverse reaction ea Disposition: 06:05 Co-signature as Attending Physician, Shawn Lucero MD. [email or web address] Disposition: 06/19/20 00:50 Hospitalization ordered by Lyndon Goel for Observation. Preliminary diagnosis are Lower abdominal pain, unspecified, Urinary tract infection, site not specified, Acute kidney injury, Hypoglycemia, unspecified. - Bed requested for Telemetry/MedSurg (observation). - Status is Observation. ea - Condition is Stable. - Problem is new. - Symptoms are unchanged. Signatures: Dispatcher [employer] EDMI Suzi Banis, CERTIFIED ENDOSCOPY TECHNICIAN-C CERTIFIED ENDOSCOPY TECHNICIAN-Csnw Natty Campos, RN RN cg Elke Bradshaw RN Alberto Warren ea RN CATHI rr5 Deirdre Sood RN RN ah Holmes, Maurice, MD MD [facility] Corrections: (The following items were deleted from the chart) 06/18 22:34 21:19 Abdomen Pelvis W Con+CT.RAD.BRZ ordered. [facility] 06/19 01:51 00:50 Hospitalization Ordered by Lyndon Goel for Observation. Preliminary diagnosis cg is Lower abdominal pain, unspecified; Urinary tract infection, site not specified; Acute kidney injury; Hypoglycemia, unspecified. Bed requested for Telemetry/MedSurg (observation). Status is Observation. Condition is Stable. Problem is new. Symptoms are unchanged. snw 02:39 01:51 06/19/2020 00:50 Hospitalization Ordered by Lyndon Goel for Observation. ea Preliminary diagnosis is Lower abdominal pain, unspecified; Urinary tract infection, site not specified; Acute kidney injury; Hypoglycemia, unspecified. Bed requested for Telemetry/MedSurg (observation). Status is Observation. Condition is Stable. Problem is new. Symptoms are unchanged. cg
--- NOTE | 2020-06-19 00:50 | ER ---
Nurse's Notes [facility] Name: Estefani Leiva Age: 80 yrs Sex: Female : 1940 Arrival Date: 06/18/2020 Time: 20:41 Bed 17 Private MD: Diagnosis: Lower abdominal pain, unspecified;Urinary tract infection, site not specified;Acute kidney injury;Hypoglycemia, unspecified Presentation: 06/18 20:41 Chief complaint: EMS states: lower abdominal pain with nausea and diarrhea x2 days. Ebola Screen: No symptoms or risks identified at this time. Initial Sepsis Screen: Does the patient meet any 2 criteria? No. Patient's initial sepsis screen is negative. Does the patient have a suspected source of infection? No. Patient's initial sepsis screen is negative. Risk Assessment: Do you want to hurt yourself or someone else? Patient reports no desire to harm self or others. Onset of symptoms is unknown. 20:41 Method Of Arrival: EMS: [facility] 20:41 Acuity: LEORA 3 22:22 Coronavirus screen: Proceed with normal triage. ea Historical: - Allergies: 20:45 PENICILLINS; - Home Meds: 20:45 atorvastatin 40 mg Oral tab 1 tab once daily [Active]; Furosemide Oral [Active]; carvedilol oral oral [Active]; Lisinopril Oral [Active]; metformin 1,000 mg Oral tr24 1 tab twice a day [Active]; - Immunization history:: Adult Immunizations unknown. - Social history:: Smoking status: Patient denies any tobacco usage or history of. Screenin:21 Abuse screen: Denies threats or abuse. Nutritional screening: No deficits noted. ea Tuberculosis screening: No symptoms or risk factors identified. Fall Risk IV access (20 points). Assessment: 22:21 General: Appears in no apparent distress. Behavior is appropriate for age. Pain: ea Complains of pain in pelvis. Neuro: Level of Consciousness is awake, alert, obeys commands, Oriented to person, place, time, situation. Cardiovascular: Patient's skin is warm and dry. GI: Bowel sounds present X 4 quads. Abd is soft and non tender X 4 quads. 06/19 00:06 Reassessment: Patient and/or family updated on plan of care and expected duration. Pain ea level reassessed. Pt alert and oriented to self and place. Provider at bedside updating pt on plan of care. 01:30 Reassessment: Patient and/or family updated on plan of care and expected duration. Pain ea level reassessed. Patient is alert, oriented x 3, equal unlabored respirations, skin warm/dry/pink. 02:30 Reassessment: Patient and/or family updated on plan of care and expected duration. Pain ea level reassessed. Patient is alert, oriented x 3, equal unlabored respirations, skin warm/dry/pink. Vital Signs: 06/18 20:41 Pulse 74; Resp 17; Temp 98.2; Pulse Ox 98% ; ah 21:30 BP 98 / 75; Pulse 78; Resp 18; Pulse Ox 98% on R/A; Pain 0/10; ks7 06/19 00:07 BP 117 / 60; Pulse 70; Resp 18; Pulse Ox 98% on R/A; ea 00:42 BP 105 / 55; Pulse 81; Resp 16; Pulse Ox 98% on R/A; ea 02:37 BP 128 / 76; Pulse 57; Resp 18; Temp 98; Pulse Ox 98% ; ea ED Course: 06/18 20:41 Patient arrived in ED. 20:43 Triage completed. 21:01 Shawn Lucero MD is Attending Physician. [facility] 21:07 [facility]C [facility] snw 21:41 Resting quietly. warm blanket placed on pt. ks7 21:41 Patient has correct armband on for positive identification. Bed in low position. Call ks7 light in reach. Side rails up X2. 21:41 No provider procedures requiring assistance completed. Inserted saline lock: 20 gauge ks7 in left antecubital area, using aseptic technique. Blood collected. 21:42 Basic Metabolic Panel Sent. ks7 21:42 CBC with Diff Sent. ks7 21:42 Hepatic Function Sent. ks7 21:42 Lipase Sent. ks7 21:45 Deirdre Sood, RN is Primary Nurse. 22:21 Arm band placed on right wrist. Patient placed in an exam room, on a stretcher, on ea pulse oximetry. 22:21 Straight cath inserted, using sterile technique, 16 Fr. Specimen obtained. ea 22:58 Abdomen In Process Unspecified. EDMS 23:49 Inserted saline lock: 22 gauge in left hand, using aseptic technique. rr5 06/19 00:48 Lyndon Goel is Hospitalizing Provider. snw 02:37 Patient admitted, IV remains in place. ea Administered Medications: 06/18 23:15 Drug: NS 0.9% 1000 ml Route: IV; Rate: 75 ml/hr; Site: left antecubital; ea 06/19 02:38 Follow up: Response: No adverse reaction; IV Status: Infusion continued upon admission ea 06/18 23:15 Drug: D50W 25 ml Route: IVP; Site: left antecubital; ea 06/19 00:00 Follow up: Response: No adverse reaction ea 06/18 23:49 Drug: Rocephin 1 grams Route: IV; Rate: calculated rate; Site: left hand; rr5 06/19 00:00 Follow up: Response: No adverse reaction; IV Status: Completed infusion ea 00:52 Drug: D50W 25 ml Route: IVP; Site: left hand; ea 01:00 Follow up: Response: No adverse reaction ea Outcome: 00:50 Decision to Hospitalize by Provider. snw 01:00 Instructed on the need for admit, Demonstrated understanding of instructions. ea 02:37 Admitted to Med/surg accompanied by nurse, via stretcher, room 203, with chart, Report ea called to Jenni WINKLER 02:37 Condition: stable 02:39 Patient left the ED. ea Signatures: Dispatcher [employer] EDSuzi Candelario FNP-C LANGUAGE INSTRUCTOR-Csnw Elke Bradshaw RN RN ea Roque, Raymond RN RN rr5 Deirdre Sood RN Shawn Mcmanus MD MD 7 Sushma Steel RN RN ks7
[2020-06-19] MEDS ORDERED: D50W 25 GM/50 ML SYRINGE/VIAL IV ONE (01:00)
[2020-06-19] MEDS ORDERED: NA CHLORIDE 0.9% 1,000 ML IV SCH (02:37)
[2020-06-19] MEDS ORDERED: ACETAMINOPHEN 500 MG TAB PO PRN (02:37)
[2020-06-19 03:30] VITALS: BMI 26.2
[2020-06-19] MEDS ORDERED: CEFTRIAXONE/SWI 1gm 1 GM/10 ML SYR IV SCH (04:00)
[2020-06-19] MEDS: HEPARIN 5000 UNIT/ML 1 ML VIAL SQ SCH ×3 (04:22→17:21)
--- NOTE | 2020-06-19 07:29 | EKG ---
Test Date: 2020-06-19 Test Time: 03:41:00 Director Of Manufacturing: RT MEASUREMENT RESULTS: Intervals: Rate: 74 PA: QRSD: 74 QT: 428 QTc: 475 [place]: P: 83 PA: QRS: -11 T: 36 INTERPRETIVE STATEMENTS: Sinus rhythm with 2nd degree AV block (Mobitz I) Abnormal ECG Compared to ECG 01/20/2020 14:16:34 First degree AV block no longer present T-wave abnormality no longer present Electronically Signed On 06-19-20 07:28:50 CDT by Erick Pedersen
[2020-06-19] MEDS: INSULIN -REGULAR HUMAN 50 UNIT/0.5 ML ML SQ SCH ×4 (07:30→20:51)
[2020-06-19] MEDS ORDERED: CEFTRIAXONE 1 GM/NS 50 ML 1 GM/50 ML BAG IV SCH (09:00)
[2020-06-19] MEDS: CEFTRIAXONE/SWI 1gm 1 GM/10 ML SYR IV SCH (09:03)
[2020-06-19] MEDS: D5 0.9 NS 1,000 ML IV SCH (09:06)
[2020-06-19] MEDS ORDERED: POTASSIUM 25 MEQ EFFERV TAB PO ONE (11:40)
[2020-06-19 17:07] LABS: Absolute Lymphocytes (CBC) 1.3 K/uL (0.7-4.9); Basophils % 1.2 % (0-1.3); Hematocrit 35.3 % (36.0-45.0); Lymphocytes % 38.6 % (15.3-44.8); MPV 11.3 fL (7.6-11.3); RBC Red Blood Cell Count 3.68 M/uL (3.86-4.86)
[2020-06-19 17:35] LABS: Albumin 2.8 g/dL (3.4-5.0); Bilirubin Total 0.3 mg/dL (0.2-1.0); Protein, Total 7.4 g/dL (6.4-8.2); Troponin I 0.04 ng/mL (0.0-0.045)
[2020-06-19 17:40] LABS: CKMB Creatine Kinase MB 1.5 ng/mL (0.3-3.6); Magnesium 1.6 mg/dL (1.8-2.4); Phosphorus 2.5 mg/dL (2.5-4.9)
[2020-06-19] MEDS ORDERED: MAGNESIUM SULFATE 1 gm IVPB 1 GM/100 ML BAG IV ONE (21:00)
[2020-06-20] MEDS: D5 0.9 NS 1,000 ML IV SCH ×3 (00:40→17:15)
[2020-06-20] MEDS: HEPARIN 5000 UNIT/ML 1 ML VIAL SQ SCH ×3 (00:41→17:13)
[2020-06-20] MEDS ORDERED: HYDRALAZINE HCL 20 MG/ML VIAL IV PRN (01:10)
[2020-06-20 06:14] LABS: Absolute Lymphocytes (CBC) 1.2 K/uL (0.7-4.9); Basophils % 1.1 % (0-1.3); Hematocrit 37.1 % (36.0-45.0); Lymphocytes % 36.5 % (15.3-44.8); MPV 10.9 fL (7.6-11.3); RBC Red Blood Cell Count 3.91 M/uL (3.86-4.86)
[2020-06-20 06:29] LABS: Magnesium 1.8 mg/dL (1.8-2.4); Phosphorus 1.8 mg/dL (2.5-4.9)
[2020-06-20] MEDS: INSULIN -REGULAR HUMAN 50 UNIT/0.5 ML ML SQ SCH ×4 (08:46→20:33)
[2020-06-20] MEDS: CEFTRIAXONE/SWI 1gm 1 GM/10 ML SYR IV SCH (08:46)
[2020-06-20] MEDS: POTASS/SODIUM PHOSPHATE 1 PKT POWD.PACK PO SCH ×3 (08:46→12:34)
[2020-06-20] MEDS: ATORVASTATIN 40 MG TAB PO SCH (08:47)
[2020-06-20] MEDS: ASPIRIN EC 81 MG TAB PO SCH (08:47)
[2020-06-20] MEDS: lisinopriL 5 MG TAB PO SCH (08:48)
[2020-06-20] MEDS: carvediloL 3.125 MG TAB PO SCH ×2 (08:48→20:33)
[2020-06-20] MEDS: MULTIVITAMIN TAB PO SCH (08:48)
[2020-06-20] MEDS: SOLIFENACIN SUCCIN 5 MG TAB PO SCH (08:49)
[2020-06-20] MEDS ORDERED: MAGNESIUM SULFATE 1 gm IVPB 1 GM/100 ML BAG IV ONE (09:00)
--- NOTE | 2020-06-20 11:02 | P.PN ---
Subjective Date of Service: 06/20/20 Chief Complaint: Abdominal pain Subjective: No new changes, Improving Review of Systems 10-point ROS is otherwise unremarkable Physical Examination - Vital Signs Temperature: 98.5 F Blood Pressure: 132/58 Pulse: 78 Respirations: 17 Pulse Ox (%): 92 - Physical Exam General: Alert, In no apparent distress HEENT: Atraumatic, Normocephalic Neck: Supple, 2+ carotid pulse no bruit Respiratory: Clear to auscultation bilaterally Cardiovascular: Regular rate/rhythm, Normal S1 S2 Capillary refill: <2 Seconds Gastrointestinal: Soft and benign, W/out hepatosplenomegaly Musculoskeletal: No clubbing, No swelling Integumentary: No rashes, No breakdown Neurological: Other (Alert, ) Lymphatics: No axilla or inguinal lymphadenopathy Assessment & Plan Physician Review Additional Text: Monitor under telemetry Continue IV Rocephin. Cautious hydration with IV normal saline. Follow urine culture Culture showed Gram negative rods Awaiting final cultures report Monitor electrolytes and renal function Hold NPH insulin due to hypoglycemia. Manage blood sugar with insulin sliding scale. Apparently one of the family members she is staying with tested positive for COVID 19 Awaiting Covid 19 test Time Spent Managing Pts Care (In Minutes): 45
[2020-06-21] MEDS: D5 0.9 NS 1,000 ML IV SCH (00:01)
[2020-06-21] MEDS: HEPARIN 5000 UNIT/ML 1 ML VIAL SQ SCH ×3 (00:02→16:09)
[2020-06-21 06:00] LABS: Magnesium 1.6 mg/dL (1.8-2.4); Phosphorus 1.8 mg/dL (2.5-4.9)
[2020-06-21] MEDS ORDERED: MAGNESIUM SULFATE 1 gm IVPB 1 GM/100 ML BAG IV ONE (06:06)
[2020-06-21] MEDS: POTASS/SODIUM PHOSPHATE 1 PKT POWD.PACK PO SCH ×3 (07:00→08:44)
[2020-06-21] MEDS: lisinopriL 5 MG TAB PO SCH (07:28)
[2020-06-21] MEDS: MULTIVITAMIN TAB PO SCH (07:28)
[2020-06-21] MEDS: CEFTRIAXONE/SWI 1gm 1 GM/10 ML SYR IV SCH (07:28)
[2020-06-21] MEDS: carvediloL 3.125 MG TAB PO SCH (07:29)
[2020-06-21] MEDS: ATORVASTATIN 40 MG TAB PO SCH (07:29)
[2020-06-21] MEDS: INSULIN -REGULAR HUMAN 50 UNIT/0.5 ML ML SQ SCH ×3 (07:29→16:15)
[2020-06-21] MEDS: ASPIRIN EC 81 MG TAB PO SCH (07:29)
[2020-06-21] MEDS: SOLIFENACIN SUCCIN 5 MG TAB PO SCH (07:29)
--- NOTE | 2020-06-21 09:07 | RAD REPORT ---
EXAM DESCRIPTION: CT - Abdomen Pelvis Wo Contrast - 06/19/2020 4:52 am CLINICAL HISTORY: ABD PAIN COMPARISON: None Available. TECHNIQUE: CT of the abdomen and pelvis without IV contrast. Evaluation of the solid organs and vasc ulature is suboptimal due to lack of IV contrast. FINDINGS: Lung Bases: Bibasilar opacities may represent scarring or atelectasis. Coronary artery ath erosclerosis. Prior median sternotomy. Bones: Healing right rib fractures. Severe multilevel degenerative endplate spondylosis, facet arthro calin, and degenerative disc height narrowing of the visualized spine. Abdomen: Liver: The liver has normal size and density. There is a 3.8 x 2.6 x 2.1 cm nonspecific hypodense str ucture in the posterior right hepatic lobe that is not definitely cystic.. Gallbladder: Calcified gallstones. No pericholecystic inflammatory change. Spleen, Pancreas, and Adrenal Glands: The spleen, pancreas, and adrenal glands are unremarkable. Kidneys: The kidneys have normal size without evidence of hydronephrosis. No obstructing ureteral preeti culi. Vasculature: Aortoiliac atherosclerosis. Aortobifemoral bypass graft. Stomach: The stomach and duodenum have normal course. Other: No free intraperitoneal air. No free fluid or lymphadenopathy. Calcified gluteal injection granulomas. Pelvis: Bladder: Urinary bladder is decompressed. Bowel: No dilated loops of large or small bowel. Appendix: No identified. Pelvis: Uterus is not enlarged. IMPRESSION: 1. No acute inflammatory or obstructive process identified. 2. There is an indeterminate 3.8 cm structure hypodense structure in the posterior right hepatic lobe which is not definitely cystic. Correlation with multiphase hepatic CT or MRI recommended. 3. Cholelithiasis without other CT evidence of acute cholecystitis. This exam was performed according to our departmental dose-optimization program, which includes autom ated exposure control, adjustment of the mA and/or kV according to patient size and/or use of iterati ve reconstruction technique. Electronically signed by: Dony Espinoza 06/18/2020 11:14 PM CDT Due to temporary technical issues with the PACS/Fluency reporting system, reports are being signed by the in house radiologist without review as a courtesy to ensure prompt reporting. The interpreting r adiologist is fully responsible for the content of the report.
--- NOTE | 2020-06-21 10:49 | P.DS ---
Admission Date: 06/19/20 Discharge Date: 06/21/20 Disposition: ROUTINE DISCHARGE Discharge Condition: FAIR Reason for Admission: Abdominal pain Brief History of Present Illness: 80-year-old woman with a history of diabetes was brought to the emergency department with a complaint of abdominal pain. Patient is a poor historian and cannot provide enough history. She was found to have UTI, borderline hypoglycemia and acute renal failure in the ED. Patient denies any fever. She endorsed good oral intake. She denies any dysuria. Hospital Course: UTI (urinary tract infection) Hypoglycemia Chronic systolic heart failure Acute renal failure Diabetes type 2 with atherosclerosis of arteries of extremities Hypertension - Plan The patient was admitted and was monitor under telemetry. Started on IV antibiotics after getting cultures. urine culture came back positive for E. coli. NPH insulin was held due to hypoglycemia patient was started on IV hydration and renal parameters were monitored Cautious hydration with IV normal saline.Apparently one of the family members she is staying with tested positive for COVID 19 Awaiting Covid 19 test Patient wanted go home and is being discharged home today in a stable condition with advice to follow up with PCP in 1 week and also with nephrology as outpatient Vital Signs/Physical Exam: Temp Pulse Resp BP Pulse Ox 97.4 F 89 20 140/66 94 06/21/20 08:47 06/21/20 08:00 06/21/20 08:00 06/21/20 08:00 06/21/20 08:00 General: Alert, In no apparent distress HEENT: Atraumatic, Normocephalic Neck: Supple Respiratory: Clear to auscultation bilaterally Cardiovascular: Regular rate/rhythm, Normal S1 S2 Gastrointestinal: Soft and benign, W/out hepatosplenomegaly Musculoskeletal: No clubbing Integumentary: No rashes Neurological: Normal speech, Other (Alert ,Awake ) Lymphatics: No axilla or inguinal lymphadenopathy Laboratory Data at Discharge: WBC 3.4 K/uL (4.3-10.9) L 06/20/20 05:57 Hgb 12.2 g/dL (12.0-15.0) 06/20/20 05:57 Hct 37.1 % (36.0-45.0) 06/20/20 05:57 Plt Count 99 K/uL (152-406) L 06/20/20 05:57 Sodium 139 mmol/L (136-145) 06/21/20 05:10 Potassium 4.0 mmol/L (3.5-5.1) 06/21/20 05:10 BUN 10 mg/dL (7-18) 06/21/20 05:10 Creatinine 0.87 mg/dL (0.55-1.3) 06/21/20 05:10 Glucose 182 mg/dL (74-106) H 06/21/20 05:10 Phosphorus 1.8 mg/dL (2.5-4.9) L 06/21/20 05:10 Magnesium 1.6 mg/dL (1.8-2.4) L 06/21/20 05:10 Total Bilirubin 0.3 mg/dL (0.2-1.0) 06/19/20 17:00 AST 57 U/L (15-37) H 06/19/20 17:00 ALT 25 U/L (12-78) 06/19/20 17:00 Alkaline Phosphatase 54 U/L (45-117) 06/19/20 17:00 Troponin I 0.04 ng/mL (0.0-0.045) 06/19/20 17:00 Lipase 214 U/L (73-393) 06/18/20 21:37 Home Medications: Aspirin [Aspirin EC 81 MG] 1 tab PO DAILY 09/08/15 Solifenacin [Vesicare*] 5 mg PO DAILY 09/08/15 Atorvastatin Calcium 40 mg PO DAILY 09/10/18 Metformin ER [Glucophage ER*] 1,000 tab PO BID 09/10/18 Carvedilol [Coreg] 3.125 mg PO BID 06/19/20 Inulin/Chromium Picolinate [Fiber Gummies] 1 tab PO DAILY 06/19/20 Lisinopril [Zestril] 2.5 mg PO DAILY 06/19/20 Multivitamin 1 tab PO DAILY 06/19/20 Nitrofuran Macro [Macrobid] 100 mg PO BID #14 cap 06/21/20 New Medications: Nitrofuran Macro [Macrobid] 100 mg PO BID #14 cap Time spent managing pt's care (in minutes): 47
[2020-06-21 15:52] VITALS: BP 118/57; TEMP 97.2; O2SAT 95
--- NOTE | 2020-06-22 10:54 | EKG ---
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
--- NOTE | 2020-06-22 10:54 | EKG ---
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
== END 2020-06-21 16:30 | disposition home or self-care (01) ==
LOC: ER 20:26 → INTOOBSV 06-19 01:23 → ERHOLD 06-19 01:23 → 2ND 06-19 02:08 → 4TH 06-20 22:08
PROVIDERS: ADMIT Internal Medicine; ATTEND Family Medicine
DX: N39.0 Urinary tract infection, site not specified (principal); B96.20 Unspecified Escherichia coli [E. coli] as the cause of diseases classified elsewhere; N17.9 Acute kidney failure, unspecified; U07.1 COVID-19; I11.0 Hypertensive heart disease with heart failure; I50.22 Chronic systolic (congestive) heart failure; E11.649 Type 2 diabetes mellitus with hypoglycemia without coma; E11.51 Type 2 diabetes mellitus with diabetic peripheral angiopathy without gangrene; I70.209 Unspecified atherosclerosis of native arteries of extremities, unspecified extremity; E78.00 Pure hypercholesterolemia, unspecified; Z79.82 Long term (current) use of aspirin; Z79.4 Long term (current) use of insulin; Z88.0 Allergy status to penicillin; Z86.73 Personal history of transient ischemic attack (TIA), and cerebral infarction without residual deficits
CPT/HCPCS: 96361; 93005 ×5; 87088; 85025 ×3; 87086; 80048 ×3; 36415 ×3; 83735 ×3; 84100 ×3; 82947 ×13; 80076; 87077; 87186; 81015; 84484; 82553; 83690; 80053; 74176; 97161; 97530; 51702; 96375; 96374; 99285; U0002; J0360 ×2; J1644 ×9; J3475 ×3; J0696 ×3; G0378 ×5; J7042; J7030

== ENCOUNTER 2020-06-26 19:34 | Emergency (ER) | payer OTHER ==
--- OUTSIDE RECORDS SUMMARY | 2020-06-26 19:36 | XMS REPORT | Clinical Summary ---
:1940 Author Organization [facility] Address [address] [place] [address] Care Team Providers Name Role Phone Pcp [...] gram package packet instructions for constipation. Is [id number].. lisinopril Take 1 tablet (10 0 12/27/2018 [...] (YEAR 2 or FIRST YEAR if no 11/27/2018 IPPE) INFLUENZA VACCINE (#1) 2020 Implants Implanted Type Area Sound Mixer Device Shelf Model / Identifier Expiration Serial / Lot Date Grft Hemshld Dbl Akin 0.3x3.0in [id number] - [id number] Graft /Pa Right: GETINGE 02/23/2023 [id number] / Implanted: Qty: 1 on 11/28/2018 by Geo Farfan MD t ch Neck IND:MAROXANNET:CV [id number] / [id number] Results Not on fileafter 06/26/2019 Insurance Payer Benefit Plan / Subscriber ID Type Phone Address Group [facility] - UNITED MEDICARE xxxxxxxxx MEDICARE MGD CARE HMO MEDICAID - MEDICAID [facility] xxxxxxxxx Medicaid Contracted MGD CARE PLAN Advance Directives For more information, please contact:[place] [id number] [place], [place] [phone] Code Status Date Activated Date Inactivated Comments Full Code 12/17/2018 7:11 AM This code status was determined by: Patient Full Code 12/16/2018 1:38 PM 12/17/2018 7:11 AM This code status was determined by: Patient Full Code 11/28/2018 6:09 AM 12/16/2018 1:38 PM This code status was determined by: Patient
--- OUTSIDE RECORDS SUMMARY | 2020-06-26 19:40 | XMS REPORT | Continuity of Care Document ---
:1940 Author Organization [facility] t Address [address] [place] [address] Care Team Providers Name Role Phone Pcp Primary Care Physician Unavailable ROBERT FARFAN Attending Clinician Unavailable ROBERT FARFAN Admitting Clinician Unavailable Problems Condition Condition Condition Status Onset Resolution Last Treating Co mments Source Name Details Category Date Date Treatment Clinician Date S/P CABG S/P CABG Disease [facility] [place] [facility] - artery artery 00:00: Medical bypass bypass [address] [place] [address] graft) graft) S/P S/P Disease Active [facility] carotid carotid 2 [facility] - endarterec endarterec 00:00: Ak dical jessa jessa 00 [place] Carotid Carotid Disease Active [facility] stenosis, stenosis, [address] [facility] - right right 00:00: Medical 00 [place] Carotid Carotid Disease Active [facility] St artery artery [facility] - occlusion occlusion [facility] Coronary Coronary Disease Active [facility] artery artery [facility] - disease [facility] Stroke Stroke Disease Active [facility] Hypertensi Hypertensi Disease Active C HI [facility] on on [facility] Hyperlipid Hyperlipid Disease [facility] All[facility]ies, Adverse Reactions, Alerts This patient has no known allergies or adverse reactions. Family History Family Member Diagnosis Comments Start Date Stop Date Source Natural mother Breast cancer [facility] Social History Social Habit Start Date Stop Date Quantity Comments Source History of tobacco Current smoker [facility] History SDOH [facility] - Alcohol Std Drinks [facility] History SDMT ZACARIAS Siddiqui - Alcohol Binge Medical Janett ter Sex Assigned At [facility] gissel - [facility] Center Cigarettes smoked 2019-01-08 2019-01-08 ZACARIAS Siddiqui - current (pack per 00:00:00 00:00:00 Medical Center day) - Reported Alcohol Comment 2018-11-06 2018-11-06 moderately [facility] St Denise chauhan - 00:00:00 00:00:00 Medical Center History SDMT 2018-11-04 2018-11-04 1 ZACARIAS Siddiqui - Alcohol Frequency 00:00:00 00:00:00 Medical Center Smoking Status Start Date Stop Date Source Former smoker 2019-01-08 00:00:00 2019-01-08 00:00:00 [facility] Medications Ordered Filled Start Stop Current Ordering [...] by mouth [facility] - tablet 11:11: daily. [place] [address] Center traZODone 2017-11 Yes 50mg Take 50 [...] MG tablet 00:00: daily. Medica l 00 Center VESICARE 5 2017-11 Yes 5mg QD Take [address] mg tablet 0-17 by mouth [facility] - 00:00: daily. Medical 00 Center metFORMIN 2017-11 Yes 1000mg Q.5D Take 1,000 [...] Comments Source Future Scheduled 2020-07-27 INFLUENZA VACCINE (#1) [facility] - Test 00:00:00 [code = INFLUENZA Medical Ce nter VACCINE (#1)] Future Scheduled 2018-11-[address] [facility] - Test 00:00:00 WELLNESS (YEAR 2 or Medical Center FIRST YEAR if no IPPE) [code = MEDICARE ANNUAL WELLNESS (YEAR 2 or FIRST YEAR if no IPPE)] Future Scheduled 2004 PNEUMOCOCCAL [address]+ [facility] - Test 00:00:00 LOW/MEDIUM RISK (1 of Medica l Center 2 - PCV13) [code = PNEUMOCOCCAL 65+ LOW/MEDIUM RISK (1 of 2 - PCV13)] Results Test Description Test Time Test Comments Results Result Comments Source POCT-GLUCOSE METER 2018-12-27 13:28:00 Test Item Value Reference Range Interpretation Comme [facility] POC-GLUCOSE METER (RUFUS) (test 153 mg/dL 70-110 H TESTED AT [facility] [address] [facility] code = 1538) [place] [id number] 0 POCT-GLUCOSE [id number] 09:00:00 Test Item Value Reference Range Interpretation Comments POC-GLUCOSE METER 193 mg/dL 70-110 H TESTED AT [facility] 6720 (BEAKER) (test code = ALONDRA Coy [facility] 1538) [address] [id number] 06:55:00 Test Item Value Reference Range Interpretation Comments MAGNESIUM (BEAKER) (test code = 1.5 mg/dL 1.6-2.6 L 627) BASIC METABOLIC [id number] 06:55:00 Test Item Value Reference Range Interpretation [...] PATIEN TS. CBC W/PLT COUNT & AUTO [id number] 06:25:00 Test Item Value Reference Range Interpretation [...] PERCENT (BEAKER) (test code = 2801) POCT-GLUCOSE [id number] 23:25:00 Test Item Value Reference Range Interpretation Comments POC-GLUCOSE METER 171 mg/dL 70-110 H TESTED AT [facility] 6720 (BEAKER) (test code = ALONDRA CRISOSTOMO 1538) [address] POCT-GLUCOSE [id number] 18:08:00 Test Item Value Reference Range Interpretation Comments POC-GLUCOSE METER 138 mg/dL 70-110 H TESTED AT [facility] 6720 (BEAKER) (test code = [facility] Zbigniew [facility] 1538) [address] POCT-GLUCOSE [id number] 13:05:00 Test Item Value Reference Range Interpretation Comments POC-GLUCOSE METER 140 mg/dL 70-110 H TESTED AT [place] [address] ([facility]) (test code = [facility] Zbigniew [facility] 1538) 88298 POCT-GLUCOSE [id number] 08:57:00 Test Item Value Reference Range Interpretation Comments POC-GLUCOSE METER 180 mg/dL 70-110 H TESTED AT [place] [address] ([facility]) (test code = [facility] 1538) 30487 POCT-GLUCOSE [id number] 21:30:00 Test Item Value Reference Range Interpretation Comments POC-GLUCOSE METER 212 mg/dL 70-110 H TESTED AT [place] [address] ([facility]) (test code = [facility] Zbigniew [facility] 1538) 0[address] POCT-GLUCOSE [id number] 17:26:00 Test Item Value Reference Range Interpretation Comments POC-GLUCOSE METER 117 mg/dL 70-110 H TESTED AT [place] [address] ([facility]) (test code = [facility] 1538) 41352 POCT-GLUCOSE [id number] 13:12:00 Test Item Value Reference Range Interpretation Comments POC-GLUCOSE METER 166 mg/dL 70-110 H TESTED AT [place] [address] ([facility]) (test code = [facility] 1538) 31001 URIC [id number] 13:02:00 Test Item Value Reference Range Interpretation Comments URIC ACID ([facility]) (test code = 5.9 mg/dL 2.6-7.2 773) POCT-GLUCOSE [id number] 09:40:00 Test Item Value Reference Range Interpretation Comments POC-GLUCOSE METER 175 mg/dL 70-110 H TESTED AT [place] [address] ([facility]) (test code = [facility] 1538) [address]76 POCT-GLUCOSE [id number] 08:10:00 Test Item Value Reference Range Interpretation Comments POC-GLUCOSE METER 175 mg/dL 70-110 H TESTED AT [place] [address] ([facility]) (test code = [facility] 1538) 07297 [id number] 05:15:00 Test Item Value Reference Range Interpretation Comments MAGNESIUM (BEAKER) (test code = 1.8 mg/dL 1.6-2.6 627) BASIC METABOLIC [id number] 05:15:00 Test Item Value Reference Range Interpretation [...] PATIEN TS. CBC W/PLT COUNT & AUTO [id number] 04:56:00 Test Item Value Reference Range Interpretation [...] PERCENT (BEAKER) (test code = 2801) POCT-GLUCOSE [id number] 21:26:00 Test Item Value Reference Range Interpretation Comments POC-GLUCOSE METER 162 mg/dL 70-110 H [facility] [place] [address] [facility] (test code = ALONDRA [place] 1538) [address]136 POCT-GLUCOSE [id number] 19:38:00 Test Item Value Reference Range Interpretation Comments POC-GLUCOSE METER 194 mg/dL 70-110 H TESTED AT [place] [address] [facility] (test code = ALONDRA [place] 1538) 0[address] POCT-GLUCOSE [id number] 13:05:00 Test Item Value Reference Range Interpretation Comments POC-GLUCOSE METER 177 mg/dL 70-110 H TESTED AT [place] [address] ([facility]) (test code = ALONDRA [place] 1538) [address] POCT-GLUCOSE [id number] 08:48:00 Test Item Value Reference Range Interpretation Comments POC-GLUCOSE METER 140 mg/dL 70-110 H TESTED AT [facility] 6720 (BEAKER) (test code = ALONDRA Coy [facility] 1538) [address]04 POCT-GLUCOSE [id number] 21:57:00 Test Item Value Reference Range Interpretation Comments POC-GLUCOSE METER 160 mg/dL 70-110 H TESTED AT [place] [address] (BEAKER) (test code = ALONDRA Coy [facility] 1538) 52164 POCT-GLUCOSE [id number] 17:35:00 Test Item Value Reference Range Interpretation Comments POC-GLUCOSE METER 107 mg/dL 70-110 TESTED AT [place] [address] (BEAKER) (test code = ALONDRA Coy [facility] 1538) 78533 POCT-GLUCOSE [id number] 13:02:00 Test Item Value Reference Range Interpretation Comments POC-GLUCOSE METER 167 mg/dL 70-110 H TESTED AT [place] [address] (BEAKER) (test code = ALONDRA Coy [facility] 1538) 41956 POCT-GLUCOSE [id number] 08:39:00 Test Item Value Reference Range Interpretation Comments POC-GLUCOSE METER 172 mg/dL 70-110 H TESTED AT [place] [address] (BEAKER) (test code = ALONDRA Coy [facility] 1538) [address]70 [id number] 06:10:00 Test Item Value Reference Range Interpretation Comments MAGNESIUM (BEAKER) (test code = 1.5 mg/dL 1.6-2.6 L 627) BASIC METABOLIC [id number] 06:10:00 Test Item Value Reference Range Interpretation [...] PATIEN TS. CBC W/PLT COUNT & AUTO [id number] 05:12:00 Test Item Value Reference Range Interpretation [...] PERCENT (BEAKER) (test code = 2801) POCT-GLUCOSE [id number] 22:03:00 Test Item Value Reference Range Interpretation Comments POC-GLUCOSE METER 208 mg/dL 70-110 H TESTED AT [place] [address] ([facility]) (test code = ALONDRA [place] 1538) 87492 POCT-GLUCOSE [id number] 18:20:00 Test Item Value Reference Range Interpretation Comments POC-GLUCOSE METER 146 mg/dL 70-110 H TESTED AT [place] [address] ([facility]) (test code = ALONDRA Coy [facility] 1538) 71405 POCT-GLUCOSE [id number] 12:53:00 Test Item Value Reference Range Interpretation Comments POC-GLUCOSE METER 168 mg/dL 70-110 H TESTED AT [place] [address] ([facility]) (test code = ALONDRA Coy [facility] 1538) 20352 POCT-GLUCOSE [id number] 09:31:00 Test Item Value Reference Range Interpretation Comments POC-GLUCOSE METER 192 mg/dL 70-110 H TESTED AT [place] [address] ([facility]) (test code = ALONDRA Coy [facility] 1538) [address] [id number] 07:27:00 Test Item Value Reference Range Interpretation Comments MAGNESIUM (BEAKER) (test code = 1.6 mg/dL 1.6-2.6 627) BASIC METABOLIC [id number] 07:27:00 Test Item Value Reference Range Interpretation [...] PATIEN TS. CBC W/PLT COUNT & AUTO [id number] 06:06:00 Test Item Value Reference Range Interpretation [...] PERCENT (BEAKER) (test code = 2801) POCT-GLUCOSE [id number] 22:49:00 Test Item Value Reference Range Interpretation Comments POC-GLUCOSE METER 214 mg/dL 70-110 H TESTED AT [place] [address] ([facility]) (test code = [facility] 1538) [address]57 POCT-GLUCOSE [id number] 22:48:00 Test Item Value Reference Range Interpretation Comments POC-GLUCOSE METER 247 mg/dL 70-110 H TESTED AT [place] [address] ([facility]) (test code = [facility] 1538) 99115 POCT-GLUCOSE [id number] 17:37:00 Test Item Value Reference Range Interpretation Comments POC-GLUCOSE METER 185 mg/dL 70-110 H TESTED AT [place] [address] ([facility]) (test code = [facility] 1538) 85281 [id number] 15:08:00 Test Item Value Reference Range Interpretation Comments MAGNESIUM (BEAKER) (test code = 1.7 mg/dL 1.6-2.6 627) BASIC METABOLIC [id number] 15:08:00 Test Item Value Reference Range Interpretation [...] H (BEAKER) (test code = 413) POCT-GLUCOSE [id number] 12:49:00 Test Item Value Reference Range Interpretation Comments POC-GLUCOSE METER 182 mg/dL 70-110 H TESTED AT [facility] 6720 (BEAKER) (test code = ALONDRA Coy [facility] 1538) 9[address]44 POCT-GLUCOSE [id number] 08:49:00 Test Item Value Reference Range Interpretation Comments POC-GLUCOSE METER 111 mg/dL 70-110 H TESTED AT [place] [address] ([facility]) (test code = ALONDRA [place] 1538) 48996 POCT-GLUCOSE [id number] 22:38:00 Test Item Value Reference Range Interpretation Comments POC-GLUCOSE METER 225 mg/dL 70-110 H TESTED AT [place] [address] ([facility]) (test code = ALONDRA Coy [facility] 1538) 61127 POCT-GLUCOSE [id number] 17:12:00 Test Item Value Reference Range Interpretation Comments POC-GLUCOSE METER 194 mg/dL 70-110 H TESTED AT [place] [address] ([facility]) (test code = ALONDRA Coy [facility] 1538) 23507 POCT-GLUCOSE [id number] 14:19:00 Test Item Value Reference Range Interpretation Comments POC-GLUCOSE METER 179 mg/dL 70-110 H TESTED AT [place] [address] ([facility]) (test code = ALONDRA Coy [facility] 1538) 17658 RAD, CHEST, 1 VIEW, NON [id number] 12:01:00Reason for exam:->short of breathShould this be [...] Shipman Verified Date/Time: 12/20/2018 12:01:09 Reading Location: [facility] Radiology Reading Room POCT-GLUCOSE METER 2018-12-20 10:07:00 Test Item Value Reference Range Interpretation Comments POC-GLUCOSE METER 169 mg/dL 70-110 H TESTED AT [place] [address] (BEAKER) (test code = ALODNRA L[place] 1538) [address] [id number] 08:40:00 Test Item Value Reference Range Interpretation Comments MAGNESIUM (BEAKER) (test code = 1.5 mg/dL 1.6-2.6 L 627) BASIC METABOLIC [id number] 08:40:00 Test Item Value Reference Range Interpretation [...] CORPUSCULAR HEMOGLOBIN CONC 31.8 GM/DL 32.2-35.5 L ([facility]) (test code = 752) RED CELL DISTRIBUTION WIDTH 17.1 % 11.7-14.4 H (AKER) (test code = 412) PLATELET COUNT ([facility]) (test 110 K/CU MM 150-450 L code = 756) MEAN PLATELET VOLUME (AKER) 13.1 fL 9.4-12.3 H (test code = 754) NUCLEATED RED BLOOD CELLS 0 /100 WBC 0-0 (AKER) (test code = 413) POCT-GLUCOSE [id number] 22:11:00 Test Item Value Reference Range Interpretation Comments POC-GLUCOSE METER 207 mg/dL 70-110 H TESTED AT [place] [address] ([facility]) (test code = ALONDRA CRISOSTOMO 1538) 9[address] POCT-GLUCOSE [id number] 17:51:00 Test Item Value Reference Range Interpretation Comments POC-GLUCOSE METER 197 mg/dL 70-110 H TESTED AT [place] [address] ([facility]) (test code = ALONDRA CRISOSTOMO 1538) 38838 POCT-GLUCOSE [id number] 12:26:00 Test Item Value Reference Range Interpretation Comments POC-GLUCOSE METER 238 mg/dL 70-110 H TESTED AT [place] [address] ([facility]) (test code = ALONDRA CRISOSTOMO 1538) 66667 POCT-GLUCOSE [id number] 12:00:00 Test Item Value Reference Range Interpretation Comments POC-GLUCOSE METER 207 mg/dL 70-110 H TESTED AT [place] [address] ([facility]) (test code = ALONDRA [place] 1538) [address]245 [id number] 07:04:00 Test Item Value Reference Range Interpretation Comments PHOSPHORUS (BEAKER) (test code = 2.9 mg/dL 2.3-4.7 604) [id number] 07:04:00 Test Item Value Reference Range Interpretation Comments MAGNESIUM (BEAKER) (test code = 1.8 mg/dL 1.6-2.6 627) BASIC METABOLIC [id number] 07:04:00 Test Item Value Reference Range Interpretation [...] 0-0 (BEAKER) (test code = 413) POCT-GLUCOSE [id number] 21:38:00 Test Item Value Reference Range Interpretation Comments POC-GLUCOSE METER 204 mg/dL 70-110 H TESTED AT [place] [address] ([facility]) (test code = ALONDRA Coy [facility] 1538) 85606 POCT-GLUCOSE [id number] 12:18:00 Test Item Value Reference Range Interpretation Comments POC-GLUCOSE METER 158 mg/dL 70-110 H TESTED AT [place] [address] ([facility]) (test code = BANNERPREETHI Coy [facility] 1538) 25401 POCT-GLUCOSE [id number] 09:50:00 Test Item Value Reference Range Interpretation Comments POC-GLUCOSE METER 153 mg/dL 70-110 H TESTED AT [place] [address] ([facility]) (test code = [facility] Zbigniew [facility] 1538) 97447 POCT-GLUCOSE [id number] 09:50:00 Test Item Value Reference Range Interpretation Comments POC-GLUCOSE METER 132 mg/dL 70-110 H TESTED AT [place] [address] ([facility]) (test code = [facility] Zbigniew [facility] 1538) [address]33 POCT-GLUCOSE [id number] 07:48:00 Test Item Value Reference Range Interpretation Comments POC-GLUCOSE METER 98 mg/dL 70-110 TESTED AT [place] [address] ([facility]) (test code = [facility] Zbigniew [facility] [address] 1538) POCT-GLUCOSE [id number] 07:48:00 Test Item Value Reference Range Interpretation Comments POC-GLUCOSE METER 101 mg/dL 70-110 TESTED AT [place] [address] ([facility]) (test code = [facility] 1538) 8[address] [id number] 05:44:00 Test Item Value Reference Range Interpretation Comments PHOSPHORUS (BEAKER) (test code = 3.7 mg/dL 2.3-4.7 604) [id number] 05:44:00 Test Item Value Reference Range Interpretation Comments MAGNESIUM (BEAKER) (test code = 2.4 mg/dL 1.6-2.6 627) BASIC METABOLIC [id number] 05:44:00 Test Item Value Reference Range Interpretation [...] I S NOT APPLICABLE FOR DIALYSIS PATIMELISSA DEVLIN [id number] 05:26:00 Test Item Value Reference Range Interpretation [...] (BEAKER) (test code = 413) BLOOD GAS, [id number] 05:10:00 Test Item Value Reference Range Interpretation [...] 60.0 % RAD, CHEST, 1 VIEW, NON [id number] 04:43:00while patient is intubated or has chest [...] MDReport Verified Date/Time: 12/18/2018 04:43:02 Reading Location: [address] Reading Room BLOOD GAS, [id number] 02:48:00 Test Item Value Reference Range Interpretation [...] (BEAKER) (test code = 1819) 40.0 % [id number] 23:12:00 Test Item Value Reference Range Interpretation Comments MAGNESIUM (BEAKER) (test code = 2.4 mg/dL 1.6-2.6 627) Check Serum Magnesium level 2 hours after IV magnesium replacement.BLOOD GAS, [id number] 23:00:00 Test Item Value Reference Range Interpretation [...] 1819) 40.0 % LACTIC ACID, ARTERIAL, WHOLE [id number] 20:01:00 Test Item Value Reference Range Interpretation Comments LACTATE BLOOD ARTERIAL (2) 1.5 mmol/L 0.5-2.2 (BEAKER) (test code = 2874) [id number] 19:59:00 Test Item Value Reference Range Interpretation Comments MAGNESIUM (BEAKER) (test code = 1.7 mg/dL 1.6-2.6 627) SODIUM NA-STAT [id number] 19:40:00 Test Item Value Reference Range Interpretation Comments SODIUM (BEAKER) (test code = 381) 139 meq/L 135-148 POTASSIUM-STAT [id number] 19:40:00 Test Item Value Reference Range Interpretation Comments POTASSIUM (BEAKER) (test code = 4.2 meq/L 3.6-5.5 379) OXYGEN SATURATION, [id number] 19:40:00 Test Item Value Reference Range Interpretation Comments O2 SATURATION (MEASURED) (BEAKER) 61.6 % (test code = 1455) CALCIUM, [id number] 19:40:00 Test Item Value Reference Range Interpretation Comments CALCIUM IONIZED (BEAKER) (test 1.12 mmol/L 1.12-1.27 code = 698) PH, BLOOD (BEAKER) (test code = 7.48 1810) BLOOD GAS, [id number] 19:40:00 Test Item Value Reference Range Interpretation [...] (test code = 1819) 40.0 % GLUCOSE-STAT [id number] 19:40:00 Test Item Value Reference Range Interpretation Comments GLUCOSE RANDOM (BEAKER) (test code 136 mg/dL 70-110 H = 652) HGB/HCT (H&H) - STAT [id number] 19:40:00 Test Item Value Reference Range Interpretation Comments HEMOGLOBIN (BEAKER) (test code = 10.8 g/dL 12.0-15.0 L 410) HEMATOCRIT (BEAKER) (test code = 32.0 % 36.0-45.0 L 411) POCT-GLUCOSE [id number] 18:42:00 Test Item Value Reference Range Interpretation Comments POC-GLUCOSE METER 138 mg/dL 70-110 H TESTED AT [facility] 6720 (BEAKER) (test code = ALONDRA Coy [place] 1538) [address] POCT-GLUCOSE [id number] 17:37:00 Test Item Value Reference Range Interpretation Comments POC-GLUCOSE METER 147 mg/dL 70-110 H TESTED AT [facility] 6720 (BEAKER) (test code = ALONDRA Coy [facility] 1538) 9[address]25 CBC W/PLT COUNT & AUTO [id number] 16:05:00 Test Item Value Reference Range Interpretation [...] (BEAKER) (test code = 1+ few 961) [id number] 15:49:00 Test Item Value Reference Range Interpretation Comments ACTIVATED CLOTTING TIME 103 sec TEST ED AT [place] [address] [facility] (test code = ALONDRA Coy [facility] 441) [address] [id number] 15:49:00 Test Item Value Reference Range Interpretation Comments ACTIVATED CLOTTING TIME 400 sec TEST ED AT [place] [address] (BEAKER) (test code = ALONDRA Coy [facility] 441) [address] [id number] 15:49:00 Test Item Value Reference Range Interpretation Comments ACTIVATED CLOTTING TIME 373 sec TEST ED AT [place] [address] (BEAKER) (test code = ALONDRA Coy [facility] 441) 8[address] [id number] 15:49:00 Test Item Value Reference Range Interpretation Comments ACTIVATED CLOTTING TIME 450 sec TEST ED AT [place] [address] ([facility] (test code = ALONDRA Coy [place] 441) [address] [id number] 15:49:00 Test Item Value Reference Range Interpretation Comments ACTIVATED CLOTTING TIME 389 sec TEST ED AT [place] [address] ([facility]) (test code = ALONDRA Coy [facility] 441) [address]88 [id number] 15:49:00 Test Item Value Reference Range Interpretation Comments ACTIVATED CLOTTING TIME 340 sec TEST ED AT [place] [address] ([facility]) (test code = ALONDRA Coy [facility] 441) 77854 POCT-GLUCOSE [id number] 15:27:00 Test Item Value Reference Range Interpretation Comments POC-GLUCOSE METER 131 mg/dL 70-110 H TESTED AT [place] [address] ([facility]) (test code = ALONDRA Coy [place] 1538) [address] LACTIC ACID, ARTERIAL, WHOLE [id number] 15:19:00 Test Item Value Reference Range Interpretation Comments LACTATE BLOOD ARTERIAL (2) 2.3 mmol/L 0.5-2.2 H (BEAKER) (test code = 2874) [id number] 15:16:00 Test Item Value Reference Range Interpretation Comments MAGNESIUM (BEAKER) (test code = 2.8 mg/dL 1.6-2.6 H 627) OXYGEN SATURATION, [id number] 14:57:00 Test Item Value Reference Range Interpretation Comments O2 SATURATION (MEASURED) (BEAKER) 51.5 % (test code = 1455) SODIUM NA-STAT [id number] 14:56:00 Test Item Value Reference Range Interpretation Comments SODIUM (BEAKER) (test code = 381) 140 meq/L 135-148 POTASSIUM-STAT [id number] 14:56:00 Test Item Value Reference Range Interpretation Comments POTASSIUM (BEAKER) (test code = 3.9 meq/L 3.6-5.5 379) HGB/HCT (H&H) - STAT [id number] 14:56:00 Test Item Value Reference Range Interpretation Comments HEMOGLOBIN (BEAKER) (test code = 12.3 g/dL 12.0-15.0 410) HEMATOCRIT (BEAKER) (test code = 36.0 % 36.0-45.0 411) BLOOD GAS, [id number] 14:56:00 Test Item Value Reference Range Interpretation [...] (test code = 1819) 60.0 % GLUCOSE-STAT [id number] 14:56:00 Test Item Value Reference Range Interpretation Comments GLUCOSE RANDOM (BEAKER) (test code 141 mg/dL 70-110 H = 652) BLOOD GAS, [id number] 13:28:00 Test Item Value Reference Range Interpretation [...] 60.0 % RAD, CHEST, 1 VIEW, NON [id number] 12:53:00Reason for exam:->PostopFINAL REPORT Chest x-ray Clinical [...] Tyler Verified Date/Time: 12/17/2018 12:53:38 Reading Location: [facility] C0[facility] Consult Reading Room Electronically signed by: RISA TYLER M.D. on 12/17 12:53 PMPROTHROMBIN [id number] 12:37:00 Test Item Value Reference Range Interpretation Comments PROTIME (BEAKER) (test code = 17.4 seconds 11.7-14.7 H 759) INR (BEAKER) (test code = 370) 1.4 <=5.9 RECOMMENDED COUMADIN/WARFARIN INR THERAPY RANGESSTANDARD DOSE: 2.0 - 3.0 Includes: PROPHYLAXIS forvenous thrombosis, systemic embolization; TREATMENT for venous thrombosis and/or pulmonary embolus.HIGH RISK: Target INR is 2.5-3.5 for patients with mechanical heart valves.[id number] 12:37:00 Test Item Value Reference Range Interpretation Comments FIBRINOGEN LEVEL (BEAKER) (test 238 mg/dl 225-434 code = 658) [id number] 12:37:00 Test Item Value Reference Range Interpretation Comments PARTIAL THROMBOPLASTIN TIME 33.3 seconds 22.5-36.0 (BEAKER) (test code = 760) [id number] 12:37:00 Test Item Value Reference Range Interpretation Comments MAGNESIUM (BEAKER) (test code = 1.4 mg/dL 1.6-2.6 L 627) BASIC METABOLIC [id number] 12:37:00 Test Item Value Reference Range Interpretation [...] DIALYSIS PATIEN TS. LACTIC ACID, ARTERIAL, WHOLE [id number] 12:35:00 Test Item Value Reference Range Interpretation Comments LACTATE BLOOD ARTERIAL (2) 1.5 mmol/L 0.5-2.2 (BEAKER) (test code = 2874) CALCIUM, [id number] 12:32:00 Test Item Value Reference Range Interpretation Comments CALCIUM IONIZED (BEAKER) (test 1.19 mmol/L 1.12-1.27 code = 698) PH, BLOOD (BEAKER) (test code = 7.28 1810) OXYGEN SATURATION, [id number] 12:32:00 Test Item Value Reference Range Interpretation Comments O2 SATURATION (MEASURED) (BEAKER) 49.7 % (test code = 1455) BLOOD GAS, [id number] 12:31:00 Test Item Value Reference Range Interpretation [...] code = 1819) 60.0 % BLOOD GAS, [id number] 10:54:00 Test Item Value Reference Range Interpretation [...] (test code = 1819) 100.0 % GLUCOSE-STAT [id number] 10:54:00 Test Item Value Reference Range Interpretation Comments GLUCOSE RANDOM (BEAKER) (test code 193 mg/dL 70-110 H = 652) CALCIUM, [id number] 10:54:00 Test Item Value Reference Range Interpretation Comments CALCIUM IONIZED (BEAKER) (test 1.08 mmol/L 1.12-1.27 L code = 698) PH, BLOOD (BEAKER) (test code = 7.34 1810) SODIUM NA-STAT [id number] 10:53:00 Test Item Value Reference Range Interpretation Comments SODIUM (BEAKER) (test code = 381) 138 meq/L 135-148 POTASSIUM-STAT [id number] 10:53:00 Test Item Value Reference Range Interpretation Comments POTASSIUM (BEAKER) (test code = 4.4 meq/L 3.6-5.5 379) HGB/HCT (H&H) - STAT [id number] 10:53:00 Test Item Value Reference Range Interpretation Comments HEMOGLOBIN (BEAKER) (test code = 12.3 g/dL 12.0-15.0 410) HEMATOCRIT (BEAKER) (test code = 36.0 % 36.0-45.0 411) CALCIUM, [id number] 10:30:00 Test Item Value Reference Range Interpretation Comments CALCIUM IONIZED (BEAKER) (test 1.16 mmol/L 1.12-1.27 code = 698) PH, BLOOD (BEAKER) (test code = 7.34 1810) BLOOD GAS, [id number] 10:25:00 Test Item Value Reference Range Interpretation [...] (test code = 1819) 100.0 % GLUCOSE-STAT [id number] 10:25:00 Test Item Value Reference Range Interpretation Comments GLUCOSE RANDOM (BEAKER) (test code 223 mg/dL 70-110 H = 652) HGB/HCT (H&H) - STAT [id number] 10:25:00 Test Item Value Reference Range Interpretation Comments HEMOGLOBIN (BEAKER) (test code = 13.4 g/dL 12.0-15.0 410) HEMATOCRIT (BEAKER) (test code = 39.0 % 36.0-45.0 411) SODIUM NA-STAT [id number] 10:24:00 Test Item Value Reference Range Interpretation Comments SODIUM (BEAKER) (test code = 381) 136 meq/L 135-148 POTASSIUM-STAT [id number] 10:24:00 Test Item Value Reference Range Interpretation Comments POTASSIUM (BEAKER) (test code = 5.0 meq/L 3.6-5.5 379) POTASSIUM-STAT [id number] 09:51:00 Test Item Value Reference Range Interpretation Comments POTASSIUM (BEAKER) (test code = 6.4 meq/L 3.6-5.5 HH 379) BLOOD GAS, [id number] 09:45:00 Test Item Value Reference Range Interpretation [...] (test code = 1819) 70.0 % GLUCOSE-STAT [id number] 09:45:00 Test Item Value Reference Range Interpretation Comments GLUCOSE RANDOM (BEAKER) (test code 235 mg/dL 70-110 H = 652) HGB/HCT (H&H) - STAT [id number] 09:45:00 Test Item Value Reference Range Interpretation Comments HEMOGLOBIN (BEAKER) (test code = 9.0 g/dL 12.0-15.0 L 410) HEMATOCRIT (BEAKER) (test code = 26.0 % 36.0-45.0 L 411) SODIUM NA-STAT [id number] 09:45:00 Test Item Value Reference Range Interpretation Comments SODIUM (BEAKER) (test code = 381) 134 meq/L 135-148 L HGB/HCT (H&H) - STAT [id number] 09:23:00 Test Item Value Reference Range Interpretation Comments HEMOGLOBIN (BEAKER) (test code = 5.3 g/dL 12.0-15.0 LL 410) HEMATOCRIT (BEAKER) (test code = 16.0 % 36.0-45.0 L 411) SODIUM NA-STAT [id number] 09:16:00 Test Item Value Reference Range Interpretation Comments SODIUM (BEAKER) (test code = 381) 130 meq/L 135-148 L POTASSIUM-STAT [id number] 09:16:00 Test Item Value Reference Range Interpretation Comments POTASSIUM (BEAKER) (test code = 5.7 meq/L 3.6-5.5 H 379) BLOOD GAS, [id number] 09:15:00 Test Item Value Reference Range Interpretation [...] (test code = 1819) 65.0 % GLUCOSE-STAT [id number] 09:15:00 Test Item Value Reference Range Interpretation Comments GLUCOSE RANDOM (BEAKER) (test code 206 mg/dL 70-110 H = 652) BLOOD GAS, [id number] 08:17:00 Test Item Value Reference Range Interpretation [...] (test code = 1819) 100.0 % GLUCOSE-STAT [id number] 08:17:00 Test Item Value Reference Range Interpretation Comments GLUCOSE RANDOM (BEAKER) (test code 124 mg/dL 70-110 H = 652) HGB/HCT (H&H) - STAT [id number] 08:17:00 Test Item Value Reference Range Interpretation Comments HEMOGLOBIN (BEAKER) (test code = 10.0 g/dL 12.0-15.0 L 410) HEMATOCRIT (BEAKER) (test code = 29.0 % 36.0-45.0 L 411) CALCIUM, [id number] 08:17:00 Test Item Value Reference Range Interpretation Comments CALCIUM IONIZED (BEAKER) (test 1.10 mmol/L 1.12-1.27 L code = 698) PH, BLOOD (BEAKER) (test code = 7.47 1810) SODIUM NA-STAT [id number] 08:16:00 Test Item Value Reference Range Interpretation Comments SODIUM (BEAKER) (test code = 381) 138 meq/L 135-148 POTASSIUM-STAT [id number] 08:16:00 Test Item Value Reference Range Interpretation Comments POTASSIUM (BEAKER) (test code = 4.2 meq/L 3.6-5.5 379) [id number] 06:01:00 Test Item Value Reference Range Interpretation Comments MAGNESIUM (BEAKER) (test code = 1.5 mg/dL 1.6-2.6 L 627) BASIC METABOLIC [id number] 06:01:00 Test Item Value Reference Range Interpretation [...] S NOT APPLICABLE FOR DIALYSIS PATIMELISSA CASSIDY. [id number] 05:50:00 Test Item Value Reference Range Interpretation Comments PARTIAL THROMBOPLASTIN TIME 81.2 seconds 22.5-36.0 H (BEAKER) (test code = 760) PROTHROMBIN [id number] 05:49:00 Test Item Value Reference Range Interpretation [...] 0-0 (BEAKER) (test code = 413) POCT-GLUCOSE [id number] 21:31:00 Test Item Value Reference Range Interpretation Comments POC-GLUCOSE METER 123 mg/dL 70-110 H TESTED AT [place] [address] ([facility]) (test code = ALONDRA Coy [facility] 1538) [address] POCT-GLUCOSE [id number] 17:23:00 Test Item Value Reference Range Interpretation Comments POC-GLUCOSE METER 121 mg/dL 70-110 H TESTED AT [place] [address] ([facility]) (test code = ALONDRA Coy [facility] 1538) [address] POCT-GLUCOSE [id number] 12:37:00 Test Item Value Reference Range Interpretation Comments POC-GLUCOSE METER 167 mg/dL 70-110 H TESTED AT [place] [address] ([facility]) (test code = ALONDRA Coy [facility] 1538) [address] POCT-GLUCOSE [id number] 09:52:00 Test Item Value Reference Range Interpretation Comments POC-GLUCOSE METER 227 mg/dL 70-110 H TESTED AT [place] [address] ([facility]) (test code = ALONDRA Coy [facility] 1538) [address] [id number] 04:44:00 Test Item Value Reference Range Interpretation Comments PARTIAL THROMBOPLASTIN TIME 66.8 seconds 22.5-36.0 H (BEAKER) (test code = 760) [id number] 04:42:00 Test Item Value Reference Range Interpretation Comments MAGNESIUM (BEAKER) (test code = 1.7 mg/dL 1.6-2.6 627) BASIC METABOLIC [id number] 04:42:00 Test Item Value Reference Range Interpretation [...] WBC 0-0 (BEAKER) (test code = 413) [id number] 23:39:00 Test Item Value Reference Range Interpretation Comments PARTIAL THROMBOPLASTIN TIME 70.2 seconds 22.5-36.0 H (BEAKER) (test code = 760) POCT-GLUCOSE [id number] 21:47:00 Test Item Value Reference Range Interpretation Comments POC-GLUCOSE METER 145 mg/dL 70-110 H TESTED AT [facility] [address] ([facility]) (test code = [place] 1538) [address] POCT-GLUCOSE [id number] 18:36:00 Test Item Value Reference Range Interpretation Comments POC-GLUCOSE METER 143 mg/dL 70-110 H TESTED AT [facility] 67[address] (BEAKER) (test code = [place] 1538) [address] [id number] 17:07:00 Test Item Value Reference Range Interpretation Comments PARTIAL THROMBOPLASTIN TIME 65.6 seconds 22.5-36.0 H (BEAKER) (test code = 760) [id number] 09:50:00 Test Item Value Reference Range Interpretation Comments PARTIAL THROMBOPLASTIN TIME 58.1 seconds 22.5-36.0 H (BEAKER) (test code = 760) POCT-GLUCOSE [id number] 09:08:00 Test Item Value Reference Range Interpretation Comments POC-GLUCOSE METER 164 mg/dL 70-110 H TESTED AT [facility] 67[address] (BEAKER) (test code = ALONDRA Coy [facility] 1538) [address] [id number] 04:08:00 Test Item Value Reference Range Interpretation Comments PARTIAL THROMBOPLASTIN TIME 79.3 seconds 22.5-36.0 H (BEAKER) (test code = 760) [id number] 04:05:00 Test Item Value Reference Range Interpretation Comments MAGNESIUM (BEAKER) (test code = 1.5 mg/dL 1.6-2.6 L 627) BASIC METABOLIC [id number] 04:05:00 Test Item Value Reference Range Interpretation [...] WBC 0-0 (BEAKER) (test code = 413) [id number] 21:53:00 Test Item Value Reference Range Interpretation Comments PARTIAL THROMBOPLASTIN TIME 112.2 seconds 22.5-36.0 H (BEAKER) (test code = 760) POCT-GLUCOSE [id number] 20:34:00 Test Item Value Reference Range Interpretation Comments POC-GLUCOSE METER 125 mg/dL 70-110 H TESTED AT [place] [address] ([facility]) (test code = ALONDRA [place] 1538) [address] OCCULT BLOOD, [id number] 14:49:00 Test Item Value Reference Range Interpretation Comments FECAL OCCULT BLOOD (BEAKER) (test Negative Negative code = 618) POCT-GLUCOSE [id number] 14:43:00 Test Item Value Reference Range Interpretation Comments POC-GLUCOSE METER 128 mg/dL 70-110 H TESTED AT [facility] 6720 (BEAKER) (test code = AL[place] 1538) [address] [id number] 14:43:00 Test Item Value Reference Range Interpretation Comments PARTIAL THROMBOPLASTIN TIME 104.0 seconds 22.5-36.0 H (BEAKER) (test code = 760) C. DIFFICILE GDH [id number] 09:11:00 Test Item Value Reference Range Interpretation Comments CDT TOXIN (test code Negative Negative = [id number]) CDT GDH ANTIGEN Positive Negative A C. difficile present but (test code = toxin not detec dmitry. [id number]) Indicates colon ization with non-toxige sabrina strain or level of tox in below detectable leve ls. No need for enteri c isolation. Irving atment is rarely needed ( only when strong clinical suspicion for Clostridium difficile infection) Testing performed by [employer] Rapid Cassette Assay. For GDH, published sensitivity of the assay is 98.7% compared to cytotoxicity testing. For Toxin AB, published sensitivity is 87.8% and specificity 99.4% compared to cytotoxicity testing.Verification of kit performance was done by the [facility] prior to clinical use.[id number] 07:50:00 Test Item Value Reference Range Interpretation Comments MAGNESIUM (BEAKER) 1.8 mg/dL 1.6-2.6 Specimen slightly (test code = 627) hemolyzed BASIC METABOLIC [id number] 07:50:00 Test Item Value Reference Range Interpretation [...] NOT APPLICABLE FOR DIALYSIS PATIEN TS. POCT-GLUCOSE [id number] 07:49:00 Test Item Value Reference Range Interpretation Comments POC-GLUCOSE METER 131 mg/dL 70-110 H TESTED AT [facility] 67[address] (BEAKER) (test code = AL[place]DR[place] 1538) [address] [id number] 07:18:00 Test Item Value Reference Range Interpretation [...] WBC 0-0 (BEAKER) (test code = 413) [id number] 21:36:00 Test Item Value Reference Range Interpretation Comments PARTIAL THROMBOPLASTIN TIME 73.2 seconds 22.5-36.0 H (BEAKER) (test code = 760) POCT-GLUCOSE [id number] 21:14:00 Test Item Value Reference Range Interpretation Comments POC-GLUCOSE METER 116 mg/dL 70-110 H [facility] [place] [address] [facility] (test code = ALONDRA Coy [facility] 1538) [address] POCT-GLUCOSE [id number] 18:13:00 Test Item Value Reference Range Interpretation Comments POC-GLUCOSE METER 150 mg/dL 70-110 H [facility] [place] [address] [facility] (test code = ALONDRA Coy [facility] 1538) [address] [id number] 14:26:00 Test Item Value Reference Range Interpretation Comments PARTIAL THROMBOPLASTIN TIME 87.5 seconds 22.5-36.0 H (BEAKER) (test code = 760) POCT-GLUCOSE [id number] 12:54:00 Test Item Value Reference Range Interpretation Comments POC-GLUCOSE METER 140 mg/dL 70-110 H TESTED AT [place] [address] ([facility]) (test code = [facility] Zbigniew [facility] 1538) [address] POCT-GLUCOSE [id number] 09:38:00 Test Item Value Reference Range Interpretation Comments POC-GLUCOSE METER 148 mg/dL 70-110 H [facility] AT [place] [address] [facility] (test code = [facility] 1538) [address] [id number] 06:53:00 Test Item Value Reference Range Interpretation Comments MAGNESIUM (BEAKER) (test code = 2.0 mg/dL 1.6-2.6 627) BASIC METABOLIC [id number] 06:53:00 Test Item Value Reference Range Interpretation [...] I S NOT APPLICABLE FOR DIALYSIS PATIEN [id number] 06:39:00 Test Item Value Reference Range Interpretation [...] 0-0 (BEAKER) (test code = 413) POCT-GLUCOSE [id number] 23:24:00 Test Item Value Reference Range Interpretation Comments POC-GLUCOSE METER 157 mg/dL 70-110 H TESTED AT [facility] 67[address] (BEAKER) (test code = AL[place]DR[place] 1538) [address] POCT-GLUCOSE [id number] 18:13:00 Test Item Value Reference Range Interpretation Comments POC-GLUCOSE METER 135 mg/dL 70-110 H TESTED AT [facility] 6720 (BEAKER) (test code = ALONDRA Coy [place] 1538) [address] POCT-GLUCOSE [id number] 13:04:00 Test Item Value Reference Range Interpretation Comments POC-GLUCOSE METER 147 mg/dL 70-110 H TESTED AT [facility] 67[address] (BEAKER) (test code = ALONDRA Coy [place] 1538) [address] [id number] 12:49:00 Test Item Value Reference Range Interpretation Comments PARTIAL THROMBOPLASTIN TIME 92.6 seconds 22.5-36.0 H (BEAKER) (test code = 760) POCT-GLUCOSE [id number] 08:55:00 Test Item Value Reference Range Interpretation Comments POC-GLUCOSE METER 144 mg/dL 70-110 H TESTED AT [place] [address] (BEAKER) (test code = ALONDRA Coy [place] 1538) [address] [id number] 05:30:00 Test Item Value Reference Range Interpretation Comments PARTIAL THROMBOPLASTIN TIME 84.5 seconds 22.5-36.0 H (BEAKER) (test code = 760) [id number] 02:15:00 Test Item Value Reference Range Interpretation Comments PARTIAL THROMBOPLASTIN TIME 160.4 seconds 22.5-36.0 HH (BEAKER) (test code = 760) [id number] 01:51:00 Test Item Value Reference Range Interpretation Comments MAGNESIUM (BEAKER) (test code = 1.7 mg/dL 1.6-2.6 627) BASIC METABOLIC [id number] 01:51:00 Test Item Value Reference Range Interpretation [...] 0-0 (BEAKER) (test code = 413) POCT-GLUCOSE [id number] 18:06:00 Test Item Value Reference Range Interpretation Comments POC-GLUCOSE METER 110 mg/dL 70-110 TESTED AT [facility] 6720 (BEAKER) (test code = AL[place]DR[place] 1538) [address] [id number] 17:35:00 Test Item Value Reference Range Interpretation Comments PARTIAL THROMBOPLASTIN TIME 49.2 seconds 22.5-36.0 H ([facility]) (test code = 760) POCT-GLUCOSE [id number] 14:02:00 Test Item Value Reference Range Interpretation Comments POC-GLUCOSE METER 215 mg/dL 70-110 H TESTED AT [place] [address] ([facility]) (test code = ALONDRA Coy [facility] 1538) [address] [id number] 11:09:00 Test Item Value Reference Range Interpretation Comments PARTIAL THROMBOPLASTIN TIME 52.4 seconds 22.5-36.0 H ([facility]) (test code = 760) Prior to initiating heparinPOCT-GLUCOSE [id number] 08:34:00 Test Item Value Reference Range Interpretation Comments POC-GLUCOSE METER 121 mg/dL 70-110 H TESTED AT [place] [address] ([facility]) (test code = ALONDRA Coy [facility] 1538) [address] POCT-GLUCOSE [id number] 21:46:00 Test Item Value Reference Range Interpretation Comments POC-GLUCOSE METER 132 mg/dL 70-110 H TESTED AT [place] [address] ([facility]) (test code = ALONDRA Coy [facility] 1538) [address] POCT-GLUCOSE [id number] 17:30:00 Test Item Value Reference Range Interpretation Comments POC-GLUCOSE METER 146 mg/dL 70-110 H TESTED AT [place] [address] ([facility]) (test code = ALONDRA Coy [facility] 1538) [address] POCT-GLUCOSE [id number] 13:44:00 Test Item Value Reference Range Interpretation Comments POC-GLUCOSE METER 124 mg/dL 70-110 H TESTED AT [place] [address] ([facility]) (test code = ALONDRA Coy [facility] 1538) [address] POCT-GLUCOSE [id number] 09:03:00 Test Item Value Reference Range Interpretation Comments POC-GLUCOSE METER 136 mg/dL 70-110 H TESTED AT [place] [address] ([facility]) (test code = ALONDRA Coy [facility] 1538) [address] CBC W/PLT COUNT & AUTO [id number] 07:24:00 Test Item Value Reference Range Interpretation Comments WHITE BLOOD CELL COUNT ([facility]) 5.8 K/ L 3.5-10.5 (test code = 775) RED BLOOD CELL COUNT ([facility]) 3.17 M/ L 3.93-5.22 L [...] 0-1 PERCENT (BEAKER) (test code = 2801) [id number] 06:43:00 Test Item Value Reference Range Interpretation Comments MAGNESIUM (BEAKER) (test code = 1.4 mg/dL 1.6-2.6 L 627) BASIC METABOLIC [id number] 06:43:00 Test Item Value Reference Range Interpretation [...] S NOT APPLICABLE FOR DIALYSIS PATIEN TS. [id number] 06:36:00 Test Item Value Reference Range Interpretation Comments PARTIAL THROMBOPLASTIN TIME 70.2 seconds 22.5-36.0 H (BEAKER) (test code = 760) TROPONIN [id number] 00:58:00 Test Item Value Reference Range Interpretation [...] failure, acidosis, acute neurological disease, and persistent tachyarrhythmia.[id number] 00:23:00 Test Item Value Reference Range Interpretation Comments PARTIAL THROMBOPLASTIN TIME 46.8 seconds 22.5-36.0 H (BEAKER) (test code = 760) Prior to initiating heparinPOCT-GLUCOSE [id number] 23:28:00 Test Item Value Reference Range Interpretation Comments POC-GLUCOSE METER 96 mg/dL 70-110 TESTED AT [place] [address] ([facility]) (test code = [facility] [address] 1538) TROPONIN [id number] 18:41:00 Test Item Value Reference Range Interpretation Comments TROPONIN I ([facility]) (test code = 0.02 ng/mL [...] acidosis, acute neurological disease, and persistent tachyarrhythmia.POCT-GLUCOSE [id number] 17:53:00 Test Item Value Reference Range Interpretation Comments POC-GLUCOSE METER 132 mg/dL 70-110 H TESTED AT [place] [address] ([facility]) (test code = [facility] 1538) [address] POCT-GLUCOSE [id number] 14:30:00 Test Item Value Reference Range Interpretation Comments POC-GLUCOSE METER 179 mg/dL 70-110 H TESTED AT [place] [address] ([facility]) (test code = [facility] 1538) [address] TROPONIN [id number] 12:32:00 Test Item Value Reference Range Interpretation Comments TROPONIN I ([facility]) (test code = 0.03 ng/mL [...] failure, acidosis, acute neurological disease, and persistent tachyarrhythmia.[id number] 12:22:00 Test Item Value Reference Range Interpretation Comments MAGNESIUM ([facility]) (test code = 1.1 mg/dL 1.6-2.6 L 627) BASIC METABOLIC [id number] 12:22:00 Test Item Value Reference Range Interpretation [...] NOT APPLICABLE FOR DIALYSIS PATIEN TS. POCT-GLUCOSE [id number] 08:39:00 Test Item Value Reference Range Interpretation Comments POC-GLUCOSE METER 121 mg/dL 70-110 H TESTED AT [facility] 6720 (BEAKER) (test code = ALONDRA Coy [place] 1538) [address] CBC W/PLT COUNT & AUTO [id number] 06:20:00 Test Item Value Reference Range Interpretation [...] PERCENT (BEAKER) (test code = 2801) POCT-GLUCOSE [id number] 23:04:00 Test Item Value Reference Range Interpretation Comments POC-GLUCOSE METER 106 mg/dL 70-110 TESTED AT [place] [address] ([facility]) (test code = ALONDRA Coy [place] 1538) [address] POCT-GLUCOSE [id number] 19:31:00 Test Item Value Reference Range Interpretation Comments POC-GLUCOSE METER 142 mg/dL 70-110 H TESTED AT [place] [address] ([facility]) (test code = ALONDRA Coy [place] 1538) [address] POCT-GLUCOSE [id number] 12:27:00 Test Item Value Reference Range Interpretation Comments POC-GLUCOSE METER 101 mg/dL 70-110 TESTED AT [facility] 6720 (BEAKER) (test code = [facility] 1538) [address] POCT-GLUCOSE [id number] 09:34:00 Test Item Value Reference Range Interpretation Comments POC-GLUCOSE METER 126 mg/dL 70-110 H TESTED AT [facility] 67 (BEAKER) (test code = [facility] 1538) [address] POCT-GLUCOSE [id number] 07:54:00 Test Item Value Reference Range Interpretation Comments POC-GLUCOSE METER 101 mg/dL 70-110 TESTED AT [place] [address] [facility] (test code = [facility] 1538) [id number] BASIC METABOLIC [id number] 05:55:00 Test Item Value Reference Range Interpretation [...] PATIEN TS. CBC W/PLT COUNT & AUTO [id number] 05:06:00 Test Item Value Reference Range Interpretation [...] % 0-1 PERCENT (BEAKER) (test code = 1551) POCT-GLUCOSE [id number] 23:07:00 Test Item Value Reference Range Interpretation Comments POC-GLUCOSE METER 102 mg/dL 70-110 TESTED AT [facility] 6720 (BEAKER) (test code = [place] 1538) [address] POCT-GLUCOSE [id number] 17:29:00 Test Item Value Reference Range Interpretation Comments POC-GLUCOSE METER 114 mg/dL 70-110 H TESTED AT [facility] 66 ([facility]) (test code = [place] 1538) [address] POCT-GLUCOSE [id number] 12:02:00 Test Item Value Reference Range Interpretation Comments POC-GLUCOSE METER 146 mg/dL 70-110 H TESTED AT [place] [address] ([facility]) (test code = [place] 1538) [address] POCT-GLUCOSE [id number] 08:14:00 Test Item Value Reference Range Interpretation Comments POC-GLUCOSE METER 101 mg/dL 70-110 TESTED AT [place] [address] ([facility]) (test code = [place] 1538) [address] POCT-GLUCOSE [id number] 23:17:00 Test Item Value Reference Range Interpretation Comments POC-GLUCOSE METER 112 mg/dL 70-110 H TESTED AT [place] [address] ([facility]) (test code = ALONDRA Coy [place] 1538) [id number] POCT-GLUCOSE [id number] 17:06:00 Test Item Value Reference Range Interpretation Comments POC-GLUCOSE METER 114 mg/dL 70-110 H TESTED AT [place] [address] ([facility]) (test code = AL[place]DRA Coy [place] 1538) [address] POCT-GLUCOSE [id number] 13:08:00 Test Item Value Reference Range Interpretation Comments POC-GLUCOSE METER 110 mg/dL 70-110 TESTED AT [place] [address] ([facility]) (test code = AL[place]A [place] 1538) [address] POCT-GLUCOSE [id number] 08:26:00 Test Item Value Reference Range Interpretation Comments POC-GLUCOSE METER 151 mg/dL 70-110 H TESTED AT [place] [address] ([facility]) (test code = AL[place]DRA Coy [place] 1538) [address] POCT-GLUCOSE [id number] 23:22:00 Test Item Value Reference Range Interpretation Comments POC-GLUCOSE METER 116 mg/dL 70-110 H TESTED AT [place] [address] ([facility]) (test code = AL[place]DRA Coy [place] 1538) [address] POCT-GLUCOSE [id number] 19:01:00 Test Item Value Reference Range Interpretation Comments POC-GLUCOSE METER 145 mg/dL 70-110 H TESTED AT [place] [address] ([facility]) (test code = ALONDRA Coy [facility] 1538) [address] POCT-GLUCOSE [id number] 13:42:00 Test Item Value Reference Range Interpretation Comments POC-GLUCOSE METER 119 mg/dL 70-110 H TESTED AT [place] [address] ([facility]) (test code = ALONDRA Coy [facility] 1538) [address] TISSUE [id number] 12:34:00Surgical Pathology Report Case: [id number] Authorizing Provider: Geo Farfan, Collected: 11/28/2018 0901 Ordering Location: [facility] Received: 11/28/2018 1029 PERIOPERATIVE SERVICES Pathologist: Reese Soares MD Specimen: Plaque, Right Carotid ARTERY, RIGHT CAROTID, ENDARTERECTOMY:CALCIFIC ATHEROSCLEROTIC PLAQUE Signing Pathologist Direct Phone Line: [phone]; [phone] stenosis Right carotid plaque Specimen is received in saline labeled with the patient's information and labeled "right carotid plaque" and consists of three irregular fragments of calcified azar-red tissue measuring 2.5 x 2 x 0.3 cm in aggregate. Polysomnographic Tech sections are submitted in A1 for decalcification.CG/ew PERFORMEDPOCT-GLUCOSE [id number] 10:06:00 Test Item Value Reference Range Interpretation Comments POC-GLUCOSE METER 137 mg/dL 70-110 H TESTED AT [place] [address] ([facility]) (test code = RHETTMS Zbigniew [facility] 1538) [address] C. DIFFICILE GDH [id number] 09:08:00 Test Item Value Reference Range Interpretation Comments CDT TOXIN (test code Negative Negative = [id number]) CDT GDH ANTIGEN Positive Negative A C. difficile present but (test code = toxin not detec dmitry. [id number]) Indicates colon ization with non-toxige sabrina strain [...] of kit performance was done by the [facility] prior to clinical use.BASIC METABOLIC [id number] 07:16:00 Test Item Value Reference Range Interpretation [...] code = 756) MEAN PLATELET VOLUME (BEAKER) 11.2 fL 9.4-12.3 (test code = 754) NUCLEATED RED BLOOD CELLS 0 /100 WBC 0-0 (AKER) (test code = 413) POCT-GLUCOSE [id number] 22:15:00 Test Item Value Reference Range Interpretation Comments POC-GLUCOSE METER 112 mg/dL 70-110 H TESTED AT [place] [address] ([facility]) (test code = ALONDRA Coy [facility] 1538) [address] POCT-GLUCOSE [id number] 18:17:00 Test Item Value Reference Range Interpretation Comments POC-GLUCOSE METER 149 mg/dL 70-110 H TESTED AT [place] [address] ([facility]) (test code = BANNERPREETHI Coy [facility] 1538) [address] POCT-GLUCOSE [id number] 13:17:00 Test Item Value Reference Range Interpretation Comments POC-GLUCOSE METER 160 mg/dL 70-110 H TESTED AT [place] [address] ([facility]) (test code = [facility] Zbigniew [facility] 1538) [address] POCT-GLUCOSE [id number] 08:01:00 Test Item Value Reference Range Interpretation Comments POC-GLUCOSE METER 110 mg/dL 70-110 TESTED AT [place] [address] ([facility]) (test code = [facility] Zbigniew [facility] 1538) [address] [id number] 05:54:00 Test Item Value Reference Range Interpretation Comments MAGNESIUM (BEAKER) 1.9 mg/dL 1.6-2.6 Specimen slightly (test code = 627) hemolyzed BASIC METABOLIC [id number] 05:54:00 Test Item Value Reference Range Interpretation [...] 0-0 (BEAKER) (test code = 413) POCT-GLUCOSE [id number] 22:44:00 Test Item Value Reference Range Interpretation Comments POC-GLUCOSE METER 91 mg/dL 70-110 TESTED AT [facility] 6720 (BEAKER) (test code = [place] [address]38) POCT-GLUCOSE [id number] 17:10:00 Test Item Value Reference Range Interpretation Comments POC-GLUCOSE METER 151 mg/dL 70-110 H TESTED AT [place] [address] (BEAKER) (test code = ALONDRA Coy [place] 1538) [address] POCT-GLUCOSE [id number] 12:46:00 Test Item Value Reference Range Interpretation Comments POC-GLUCOSE METER 166 mg/dL 70-110 H TESTED AT [place] [address] (BEAKER) (test code = ALONDRA Coy [facility] 1538) [address]142 POCT-GLUCOSE [id number] 08:21:00 Test Item Value Reference Range Interpretation Comments POC-GLUCOSE METER 147 mg/dL 70-110 H TESTED AT [place] [address] (BEAKER) (test code = ALONDRA Coy [facility] 1538) [address] CBC (HEMOGRAM ONLY)2018-12-03 07:53:00 Test Item Value [...] WBC 0-0 (BEAKER) (test code = 413) [id number] 06:48:00 Test Item Value Reference Range Interpretation Comments MAGNESIUM (BEAKER) (test code = 1.5 mg/dL 1.6-2.6 L 627) BASIC METABOLIC [id number] 06:48:00 Test Item Value Reference Range Interpretation [...] NOT APPLICABLE FOR DIALYSIS PATIEN TS. POCT-GLUCOSE [id number] 23:20:00 Test Item Value Reference Range Interpretation Comments POC-GLUCOSE METER 125 mg/dL 70-110 H TESTED AT [place] [address] ([facility]) (test code = ALONDRA Coy [facility] 1538) [address] POCT-GLUCOSE [id number] 17:33:00 Test Item Value Reference Range Interpretation Comments POC-GLUCOSE METER 136 mg/dL 70-110 H TESTED AT [place] [address] ([facility]) (test code = ALONDRA Coy [facility] 1538) [address] POCT-GLUCOSE [id number] 11:43:00 Test Item Value Reference Range Interpretation Comments POC-GLUCOSE METER 168 mg/dL 70-110 H [facility] [place] [address] [facility] (test code = ALONDRA Coy [facility] 1538) [address] POCT-GLUCOSE [id number] 08:52:00 Test Item Value Reference Range Interpretation Comments POC-GLUCOSE METER 165 mg/dL 70-110 H TEST[facility] AT [place] [address] [facility] (test code = ALONDRA Coy [facility] 1538) [address] [id number] 05:18:00 Test Item Value Reference Range Interpretation Comments MAGNESIUM (BEAKER) (test code = 1.8 mg/dL 1.6-2.6 627) BASIC METABOLIC [id number] 05:18:00 Test Item Value Reference Range Interpretation [...] 0-0 (BEAKER) (test code = 413) POCT-GLUCOSE [id number] 22:03:00 Test Item Value Reference Range Interpretation Comments POC-GLUCOSE METER 206 mg/dL 70-110 H TESTED AT [place] [address] ([facility]) (test code = [facility] 1538) [address] POCT-GLUCOSE [id number] 21:51:00 Test Item Value Reference Range Interpretation Comments POC-GLUCOSE METER 185 mg/dL 70-110 H TESTED AT [place] [address] ([facility]) (test code = [facility] 1538) [address] POCT-GLUCOSE [id number] 12:51:00 Test Item Value Reference Range Interpretation Comments POC-GLUCOSE METER 180 mg/dL 70-110 H TESTED AT [place] [address] ([facility]) (test code = [facility] 1538) [address]70 POCT-GLUCOSE [id number] 09:51:00 Test Item Value Reference Range Interpretation Comments POC-GLUCOSE METER 171 mg/dL 70-110 H TESTED AT [place] [address] ([facility]) (test code = [facility] 1538) [address] [id number] 06:42:00 Test Item Value Reference Range Interpretation Comments MAGNESIUM (BEAKER) (test code = 1.6 mg/dL 1.6-2.6 627) BASIC METABOLIC [id number] 06:42:00 Test Item Value Reference Range Interpretation [...] APPLICABLE FOR DIALYSIS PATIEN TS. HEPATIC FUNCTION [id number] 06:42:00 Test Item Value Reference Range Interpretation [...] 6-55 347) CBC W/PLT COUNT & AUTO [id number] 05:25:00 Test Item Value Reference Range Interpretation [...] PERCENT (BEAKER) (test code = 2801) POCT-GLUCOSE [id number] 21:31:00 Test Item Value Reference Range Interpretation Comments POC-GLUCOSE METER 143 mg/dL 70-110 H TESTED AT [place] [address] ([facility]) (test code = ALONDRA Coy [place] 1538) [address] POCT-GLUCOSE [id number] 18:26:00 Test Item Value Reference Range Interpretation Comments POC-GLUCOSE METER 252 mg/dL 70-110 H TESTED AT [place] [address] ([facility]) (test code = ALONDRA Coy [place] 1538) [address] POCT-GLUCOSE [id number] 12:40:00 Test Item Value Reference Range Interpretation Comments POC-GLUCOSE METER 161 mg/dL 70-110 H TESTED AT [place] [address] (BEAKER) (test code = ALONDRA Coy [place] 1538) [address] HEMOGLOBIN [id number] 11:08:00 Test Item Value Reference Range Interpretation Comments HEMOGLOBIN A1C (BEAKER) (test code = 7.2 % 4.3-6.1 H 368) POCT-GLUCOSE [id number] 08:17:00 Test Item Value Reference Range Interpretation Comments POC-GLUCOSE METER 162 mg/dL 70-110 H [facility] AT [place] [address] [facility] (test code = [facility] Zbigniew [facility] 1538) [address] POCT-GLUCOSE [id number] 07:48:00 Test Item Value Reference Range Interpretation Comments POC-GLUCOSE METER 158 mg/dL 70-110 H TESTED AT [place] [address] ([facility]) (test code = [facility] Zbigniew [facility] 1538) [address] [id number] 06:55:00 Test Item Value Reference Range Interpretation Comments MAGNESIUM (BEAKER) (test code = 1.4 mg/dL 1.6-2.6 L 627) BASIC METABOLIC [id number] 06:55:00 Test Item Value Reference Range Interpretation [...] NOT APPLICABLE FOR DIALYSIS PATIEN TS. LIPID [id number] 06:55:00 Test Item Value Reference Range Interpretation [...] Very High >=190CBC W/PLT COUNT & AUTO [id number] 06:39:00 Test Item Value Reference Range Interpretation [...] PERCENT (BEAKER) (test code = 2801) POCT-GLUCOSE [id number] 21:50:00 Test Item Value Reference Range Interpretation Comments POC-GLUCOSE METER 185 mg/dL 70-110 H TESTED AT [place] [address] ([facility]) (test code = [facility] 1538) 6[address] POCT-GLUCOSE [id number] 17:26:00 Test Item Value Reference Range Interpretation Comments POC-GLUCOSE METER 201 mg/dL 70-110 H TESTED AT [place] [address] ([facility]) (test code = [facility] 1538) [address] POCT-GLUCOSE [id number] 15:25:00 Test Item Value Reference Range Interpretation Comments POC-GLUCOSE METER 136 mg/dL 70-110 H TESTED AT [place] [address] ([facility]) (test code = [facility] 1538) [address]27 POCT-GLUCOSE [id number] 13:38:00 Test Item Value Reference Range Interpretation Comments POC-GLUCOSE METER 136 mg/dL 70-110 H TESTED AT [place] [address] ([facility]) (test code = [facility] 1538) 81952 POCT-GLUCOSE [id number] 11:05:00 Test Item Value Reference Range Interpretation Comments POC-GLUCOSE METER 183 mg/dL 70-110 H TESTED AT [place] [address] ([facility]) (test code = [facility] 1538) [address] [id number] 04:18:00 Test Item Value Reference Range Interpretation Comments MAGNESIUM (BEAKER) (test code = 1.4 mg/dL 1.6-2.6 L 627) BASIC METABOLIC [id number] 04:18:00 Test Item Value Reference Range Interpretation [...] 697) EGFR (BEAKER) (test 69 mL/min/1.73 ESTIMA DIMTRY GFR IS code = 1092) sq m NOT ACCURATE CREATININE CLEARANCE IN PREDICTING GLOMERULAR FILTRATION RATE . ESTIMATED GFR I S NOT APPLICABLE FOR DIALYSIS PATIEN TS. CBC W/PLT COUNT & AUTO [id number] 03:47:00 Test Item Value Reference Range Interpretation [...] (BEAKER) (test code = 2801) BASIC METABOLIC [id number] 17:45:00 Test Item Value Reference Range Interpretation [...] NOT APPLICABLE FOR DIALYSIS PATIEN TS. POCT-GLUCOSE [id number] 14:36:00 Test Item Value Reference Range Interpretation Comments POC-GLUCOSE METER 158 mg/dL 70-110 H TESTED AT [facility] 6720 (BEAKER) (test code = AL[place]DR[place] 1538) [address] [id number] 10:50:00 Test Item Value Reference Range Interpretation Comments PHOSPHORUS (BEAKER) (test code = 3.1 mg/dL 2.3-4.7 604) [id number] 10:50:00 Test Item Value Reference Range Interpretation Comments MAGNESIUM (BEAKER) (test code = 1.4 mg/dL 1.6-2.6 L 627) BASIC METABOLIC [id number] 10:50:00 Test Item Value Reference Range Interpretation [...] DIALYSIS PATIEN TS. LACTIC ACID, ARTERIAL, WHOLE [id number] 10:47:00 Test Item Value Reference Range Interpretation Comments LACTATE BLOOD ARTERIAL (2) 0.7 mmol/L 0.5-2.2 (BEAKER) (test code = 2874) BLOOD GAS, [id number] 10:36:00 Test Item Value Reference Range Interpretation [...] (test code = 1819) 32.0 % CALCIUM, [id number] 10:36:00 Test Item Value Reference Range Interpretation Comments CALCIUM IONIZED (BEAKER) (test 1.12 mmol/L 1.12-1.27 code = 698) PH, BLOOD (BEAKER) (test code = 7.41 1810) CBC W/PLT COUNT & AUTO [id number] 10:32:00 Test Item Value Reference Range Interpretation [...] (BEAKER) (test code = 2801) COMPREHENSIVE METABOLIC [id number] 07:28:00 Test Item Value Reference Range Interpretation [...] PATIEN TS. RAD, CHEST, 1 VIEW, NON [id number] 07:18:00Reason for exam:->CV pre- opShould this be performed at the bedside?->YesFINAL REPORT INDICATION: CV pre-op COMPARISON: None TECHNIQUE: Single frontalview of the chest. FINDINGS: Lungs and pleura: Clear lungs. No effusion.Heart and mediastinum: Normal heart size. Unremarkable mediastinal contours.Osseous structures: No acute abnormality.Other: None. IMPRESSION: No acute intrathoracic abnormality. Signed: JR Victor M, Juan Jose Skinner Verified Date/Time: 11/28/2018 07:18:00 Reading Location: [facility] Radiology Reading Room APTT 2018-11-28 07:13:00 Test Item Value Reference Range Interpretation Comments PARTIAL THROMBOPLASTIN TIME 38.8 seconds 22.5-36.0 H (BEAKER) (test code = 760) PROTHROMBIN TIME/[id number] 07:12:00 Test Item Value Reference Range Interpretation [...]
[2020-06-26 20:44] LABS: Absolute Lymphocytes (CBC) 1.1 K/uL (0.7-4.9); Basophils % 1.4 % (0-1.3); Hematocrit 36.6 % (36.0-45.0); Lymphocytes % 18.4 % (15.3-44.8); MPV 10.1 fL (7.6-11.3); RBC Red Blood Cell Count 3.87 M/uL (3.86-4.86)
[2020-06-26 20:46] LABS: Protime INR 1.16
[2020-06-26 21:02] LABS: ALT/SGPT 45 U/L (12-78); AST/SGOT 54 U/L (15-37); Alkaline Phosphatase 60 U/L (45-117); BUN Blood Urea Nitrogen 10 mg/dL (7-18); Bicarbonate 25 mmol/L (21-32); Bilirubin Direct 0.2 mg/dL (0-0.2); Bilirubin Total 0.6 mg/dL (0.2-1.0); Glucose Level 176 mg/dL (74-106); NT PRO-BNP 1050 pg/mL (<450); Potassium 4.1 mmol/L (3.5-5.1); Protein, Total 8.2 g/dL (6.4-8.2); Sodium Level 140 mmol/L (136-145); Troponin (Emerg Dept Use Only) < 0.02 ng/mL (0.0-0.045)
[2020-06-26 21:05] LABS: Magnesium 1.4 mg/dL (1.8-2.4)
[2020-06-26 21:11] LABS: Anisocytosis 1+; Blood Morphology Comment NOTED (NOT SEEN); Platelet Estimate ADEQ; Platelets, Giant NOTED; White Blood Cell Scan OK
[2020-06-26] MEDS ORDERED: MAGNESIUM OXIDE 400 MG TAB ONE (22:36)
--- NOTE | 2020-06-26 23:38 | EDPHYS ---
Physician Documentation [facility] Name: Estefani Leiva Age: 80 yrs Sex: Female : 1940 Arrival Date: 06/26/2020 Time: 19:46 Bed 30 Private MD: ED Physician Jeanmarie Gordon HPI: 06/27 00:14 This 80 yrs old Black Female presents to ER via EMS with complaints of rectal bleeding. tw4 00:14 The patient presents to the emergency department with rectal bleeding. The patient tw4 presents to the emergency department with rectal bleeding, a moderate amount, bright red blood with bowel movement. Onset: The symptoms/episode began/occurred 3 day(s) ago. Abdominal pain: described as crampy. Modifying factors: The symptoms are alleviated by nothing, the symptoms are aggravated by nothing. Associated signs and symptoms: The patient has no apparent associated signs or symptoms. Severity of symptoms: At their worst the symptoms were moderate. The patient has not experienced similar symptoms in the past. Historical: - Allergies: 06/26 20:00 PENICILLINS; jb4 - Home Meds: 20:00 isosorbide dinitrate 30 mg Oral tab 1 tab daily [Active]; atorvastatin 40 mg Oral tab 1 jb4 tab once daily [Active]; carvedilol Oral [Active]; Furosemide Oral [Active]; Humulin 70/30 100 unit/mL (70-30) Sub-Q susp 32 units in am and 20 units at night [Active]; lisinopril Oral [Active]; metformin 1,000 mg Oral tr24 1 tab twice a day [Active]; metoprolol tartrate 100 mg Oral tab 1 tab 2 times per day [Active]; metronidazole 500 mg Oral tab 1 tab once daily [Active]; Miralax 17 gram/dose Oral powd once daily [Active]; trazodone 50 mg Oral tab 1 tab q hs prn [Active]; Vesicare 5 mg Oral tab 1 tab once daily [Active]; - PMHx: 20:00 CVA; chronic diarrhea; Diabetes - NIDDM; Hyperlipidemia; Hypertension; jb4 - Immunization history:: Adult Immunizations unknown. - Social history:: Smoking status: unknown. ROS: 06/27 00:14 Constitutional: Negative for fever, chills, and weight loss, Eyes: Negative for injury, tw4 pain, redness, and discharge, Cardiovascular: Negative for chest pain, palpitations, and edema, Respiratory: Negative for shortness of breath, cough, wheezing, and pleuritic chest pain, Back: Negative for injury and pain, MS/Extremity: Negative for injury and deformity, Skin: Negative for injury, rash, and discoloration, Neuro: Negative for headache, weakness, numbness, tingling, and seizure. Abdomen/GI: Positive for rectal pain, Negative for nausea and vomiting, nausea, vomiting, and diarrhea, nausea, vomiting, diarrhea, constipation, abdominal cramps, abdominal distension, anorexia, dysphagia, hematemesis, black/tarry stool. Exam: 00:14 Constitutional: This is a well developed, well nourished patient who is awake, alert, tw4 and in no acute distress. Head/Face: Normocephalic, atraumatic. Chest/axilla: Normal chest wall appearance and motion. Nontender with no deformity. No lesions are appreciated. Cardiovascular: Regular rate and rhythm with a normal S1 and S2. No gallops, murmurs, or rubs. Normal PMI, no JVD. No pulse deficits. Respiratory: Lungs have equal breath sounds bilaterally, clear to auscultation and percussion. No rales, rhonchi or wheezes noted. No increased work of breathing, no retractions or nasal flaring. 00:14 Back: No spinal tenderness. No costovertebral tenderness. Full range of motion. Skin: Warm, dry with normal turgor. Normal color with no rashes, no lesions, and no evidence of cellulitis. MS/ Extremity: Pulses equal, no cyanosis. Neurovascular intact. Full, normal range of motion. Neuro: Awake and alert, GCS 15, oriented to person, place, time, and situation. Cranial nerves II-XII grossly intact. Motor strength 5/5 in all extremities. Sensory grossly intact. Cerebellar exam normal. Normal gait. 00:14 Abdomen/GI: Rectal exam: Stool: guaiac positive. Vital Signs: 06/26 19:50 BP 170 / 60; Resp 16 S; Temp 98.2(O); bb 20:32 BP 135 / 60; Pulse 65; Resp 16 S; Pulse Ox 99% on R/A; bb 21:39 BP 184 / 92; Pulse 87; Resp 23; Pulse Ox 97% on R/A; jb4 22:15 BP 149 / 71; Pulse 82; Resp 18; Pulse Ox 99% on R/A; jb4 23:30 BP 175 / 92; Pulse 80; Resp 20; Temp 97.7(O); Pulse Ox 98% on R/A; jb4 06/27 00:18 BP 150 / 78; Pulse 80; Resp 19; Pulse Ox 97% on R/A; jb4 MDM: 06/26 23:37 Patient medically screened. 4 06/27 00:14 Differential diagnosis: diverticulitis, hemorrhoids, hemorrhagic shock. Data reviewed: 4 vital signs, nurses notes. Data interpreted: Pulse oximetry: Interpretation: normal. Test interpretation: by ED physician or midlevel provider: ECG. Counseling: I had a detailed discussion with the patient and/or guardian regarding: the historical points, exam findings, and any diagnostic results supporting the discharge/admit diagnosis, lab results. ED course: will transfer for higher level of care due to lack of GI call. Dr Barnett agrees to accept patient for transfer. 06/26 19:47 Order name: Basic Metabolic Panel; Complete Time: 21:55 [facility] 06/26 21:55 Interpretation: Normal except: CL 110; GFR 56; GLUC 176. [facility] 06/26 19:47 Order name: CBC with Diff; Complete Time: 21:55 [facility] 06/26 21:55 Interpretation: Normal except: WBC 6.1; PLT 184; RDW 20.3; BASO% 1.4. [facility] 06/26 19:47 Order name: LFT's; Complete Time: 21:55 [facility] 06/26 21:55 Interpretation: Normal except: AST 54; ALB 3.0; GLOB 5.2; A/G 0.6. [facility] 06/26 19:47 Order name: Magnesium; Complete Time: 21:55 [facility] 06/26 21:55 Interpretation: Abnormal: MG 1.4. 06/26 19:47 Order name: NT PRO-BNP; Complete Time: 21:55 [facility] 06/26 21:56 Interpretation: Abnormal: NT PRO-BNP 1050. [facility] 06/26 19:47 Order name: PT-INR; Complete Time: 21:55 [facility] 06/26 21:56 Interpretation: Abnormal: PT 13.6. [facility] 06/26 19:47 Order name: Troponin (emerg Dept Use Only); Complete Time: 21:55 tw4 06/26 19:47 Order name: EKG; Complete Time: 19:48 tw4 06/26 19:47 Order name: Cardiac monitoring; Complete Time: 20:37 tw4 06/26 19:47 Order name: EKG - Nurse/Tech; Complete Time: 20:37 tw4 06/26 19:47 Order name: IV Saline Lock; Complete Time: 20:37 tw4 06/26 19:47 Order name: Labs collected and sent; Complete Time: 20:37 tw4 06/26 20:48 Order name: CBC Smear Scan; Complete Time: 21:55 EDMS 06/26 19:47 Order name: O2 Per Protocol; Complete Time: 20:37 tw4 06/26 19:47 Order name: O2 Sat Monitoring; Complete Time: 20:37 tw4 EC:14 Rate is 62 beats/min. Rhythm is regular. QRS [place] is Normal. VT interval is prolonged. tw4 QRS interval is normal. QT interval is normal. No Q waves. T waves are Normal. No ST changes noted. Clinical impression: 2nd degree heart block. Interpreted by me. Reviewed by me. Administered Medications: 06/26 22:41 Drug: Magnesium 400 mg Route: PO; jb4 23:41 Follow up: Response: No adverse reaction jb4 Disposition: 06/26/20 23:[address] [facility]. Diagnosis are Encounter for screening for lower gastrointestinal disorder, Gastrointestinal hemorrhage, unspecified. - Reason for transfer: Higher level of care. - Accepting physician is Dr Barnett. - Condition is Stable. - Problem is new. - Symptoms have improved. Signatures: Dispatcher [employer] EDMS Dania Nunn RN RN bb Hair La RN RN jb4 Jeanmarie Gordon MD MD tw4 Corrections: (The following items were deleted from the chart) 06/27 00:36 06/26 23:37 06/26/2020 23:[address] [facility]. jb4 Diagnosis is Encounter for screening for lower gastrointestinal disorder; Gastrointestinal hemorrhage, unspecified. Reason for transfer: Higher level of care. Accepting physician is Dr Barnett. Condition is Stable. Problem is new. Symptoms have improved. tw4
--- NOTE | 2020-06-26 23:38 | ER ---
Nurse's Notes [facility] Name: Estefani Leiva Age: 80 yrs Sex: Female : 1940 Arrival Date: 06/26/2020 Time: 19:46 Bed 30 Private MD: Diagnosis: Encounter for screening for lower gastrointestinal disorder;Gastrointestinal hemorrhage, unspecified Presentation: 06/26 19:50 Chief complaint: EMS states: they were called out for report of pt with a rectal bleed bb pt was diagnosed Covid positive last week. Coronavirus screen: Client reports previous positive COVID test result. Ebola Screen: No symptoms or risks identified at this time. Initial Sepsis Screen: Does the patient meet any 2 criteria? No. Patient's initial sepsis screen is negative. Does the patient have a suspected source of infection? No. Patient's initial sepsis screen is negative. Risk Assessment: Do you want to hurt yourself or someone else? Patient reports no desire to harm self or others. Onset of symptoms was June 26, 2020. 19:50 Method Of Arrival: EMS: [facility] 19:50 Acuity: LEORA 3 bb Triage Assessment: 19:50 General: Appears uncomfortable, Behavior is calm, cooperative. bb Historical: - Allergies: 20:00 PENICILLINS; jb4 - Home Meds: 20:00 isosorbide dinitrate 30 mg Oral tab 1 tab daily [Active]; atorvastatin 40 mg Oral tab 1 jb4 tab once daily [Active]; carvedilol Oral [Active]; Furosemide Oral [Active]; Humulin 70/30 100 unit/mL (70-30) Sub-Q susp 32 units in am and 20 units at night [Active]; lisinopril Oral [Active]; metformin 1,000 mg Oral tr24 1 tab twice a day [Active]; metoprolol tartrate 100 mg Oral tab 1 tab 2 times per day [Active]; metronidazole 500 mg Oral tab 1 tab once daily [Active]; Miralax 17 gram/dose Oral powd once daily [Active]; trazodone 50 mg Oral tab 1 tab q hs prn [Active]; Vesicare 5 mg Oral tab 1 tab once daily [Active]; - PMHx: 20:00 CVA; chronic diarrhea; Diabetes - NIDDM; Hyperlipidemia; Hypertension; jb4 - Immunization history:: Adult Immunizations unknown. - Social history:: Smoking status: unknown. Screenin:19 Abuse screen: Denies threats or abuse. Nutritional screening: No deficits noted. jb4 Tuberculosis screening: No symptoms or risk factors identified. Fall Risk Secondary diagnosis (15 points) dementia, IV access (20 points). Mental Status- Overestimates/Forgets Limitations (15 pts.). Assessment: 20:00 General: Appears in no apparent distress. comfortable, Behavior is calm, cooperative. jb4 Pain: Denies pain. Neuro: Level of Consciousness is awake, alert, obeys commands, Oriented to person. Cardiovascular: Patient's skin is warm and dry. Rhythm is sinus rhythm. Respiratory: Reports cough that is Airway is patent Respiratory effort is even, unlabored, Respiratory pattern is regular, symmetrical, Breath sounds are clear bilaterally. GI: No signs and/or symptoms were reported involving the gastrointestinal system. Abdomen is flat, non-distended, Bowel sounds present X 4 quads. Abd is soft and non tender X 4 quads. : No signs and/or symptoms were reported regarding the genitourinary system. EENT: No signs and/or symptoms were reported regarding the EENT system. Derm: Skin is intact, Skin is dry, Skin is normal, Skin temperature is warm. Musculoskeletal: Circulation, motion, and sensation intact. Range of motion: intact in all extremities. 21:43 Reassessment: PT is resting in bed with eyes closed. Respirations are even and jb4 unlabored. No s/s of pain or distress noted. 22:05 Reassessment: Spoke with pt's Lu Mckoy, and notified her of POC. jb4 Informed of probable need to Transfer patient due to not having GI. Daughter gave verbal consent via phone.Daughter reports patient has been having bloody bowl movements since . 22:15 Reassessment: Patient and/or family updated on plan of care and expected duration. Pain jb4 level reassessed. PT is resting in bed with eyes closed. Respirations are even and unlabored with no s/s of pain or distress noted. 22:42 Reassessment: PT remains A\T\O to self only. Pt passed swallow evaluation. Show now jb4 problem swallowing pills. Pt assisted up in the bed. Reports being more comfortable. Respirations remain even and unlabored. No s/s of pain or distress noted. 23:55 Reassessment: attempted to call report. Informed that the receiving nurse was busy. [facility] Instructed to call back in 10 minutes. Lu Leiva (daughter) updated on POC and the receiving facility. 06/27 00:35 Reassessment: Patient and/or family updated on plan of care and expected duration. Pain jb4 level reassessed. Pt remains alert and oriented to self only. Pt changed and cleaned due to having a BM. Small amount of blood noted in stool. Respirations are even and unlabored. No s/s of pain or distress noted. Report Given To EMS. Pt transferred to Receiving facility. 00:58 Reassessment: Report given to CATHI Dowell at [facility]. 4 Vital Signs: 06/26 19:50 BP 170 / 60; Resp 16 S; Temp 98.2(O); bb 20:32 BP 135 / 60; Pulse 65; Resp 16 S; Pulse Ox 99% on R/A; bb 21:39 BP 184 / 92; Pulse 87; Resp 23; Pulse Ox 97% on R/A; jb4 22:15 BP 149 / 71; Pulse 82; Resp 18; Pulse Ox 99% on R/A; jb4 23:30 BP 175 / 92; Pulse 80; Resp 20; Temp 97.7(O); Pulse Ox 98% on R/A; jb4 06/27 00:18 BP 150 / 78; Pulse 80; Resp 19; Pulse Ox 97% on R/A; jb4 ED Course: 06/26 19:46 Patient arrived in ED. tw4 19:47 Jeanmarie Gordon MD is Attending Physician. tw4 19:50 Arm band placed on Patient placed in an exam room, on a stretcher, on pulse oximetry. bb 19:57 Triage completed. bb 20:00 Hair La RN is Primary Nurse. jb4 20:19 Patient has correct armband on for positive identification. Bed in low position. Call [facility] light in reach. Side rails up X2. awake overnight monitor on. Pulse ox on. NIBP on. 20:19 Initial lab(s) drawn, by oh, sent to lab. EKG done. Inserted saline lock: 22 gauge in [facility] right forearm, using aseptic technique. Blood collected. 22:31 Initiated transfer with [facility] with Tania Luo regarding patient transfer. tt3 23:10 Tania Luo called back with Dr. Barnett on the line to speak with Dr. Gordon regarding tt3 the patients case. 23:25 Tania Luo RN, gave admin approval at 2325. The patient will go to room 1422 and tt3 come through the ER to be registered. [facility] Roche accepted the patient. Nurse is to call report to . Face sheet faxed to [phone]. 08 00:35 No provider procedures requiring assistance completed. Patient transferred, IV remains jb4 in place. Administered Medications: 06/26 22:41 Drug: Magnesium 400 mg Route: PO; jb4 23:41 Follow up: Response: No adverse reaction jb4 Outcome: 23:37 ER care complete, transfer ordered by . tw4 06/27 00:35 Transferred by ground EMS [facility]. to [facility], Transfer form jb4 completed. Condition: stable Discharge instructions given to family, Instructed on the need for transfer, Demonstrated understanding of instructions. 00:36 Patient left the ED. jb4 Signatures: Dania Nunn RN RN bb Bryson, James, RN RN jb4 Jeanmarie Gordon MD MD tw4 Florentino Amato tt3 Corrections: (The following items were deleted from the chart) 06/26 23:40 22:05 Reassessment: Spoke with pt's Ean, Lu Leiva, and notified her of jb4 POC. Daughter reports patient has been having bloody bowl movements since . jb4 23:41 23:30 BP 175 / 92; Pulse 80bpm; Resp 20bpm; Pulse Ox 98% RA; jb4 jb4 23:46 20:00 Neuro: Level of Consciousness is awake, alert, obeys commands, Oriented to jb4 person, jb4
[2020-06-27 00:56] VITALS: BP 175/92; TEMP 97.7; O2SAT 98
== END 2020-06-27 00:36 | disposition short-term general hospital (02) ==
LOC: ER 19:34
DX: Z13.811 Encounter for screening for lower gastrointestinal disorder (principal); I10 Essential (primary) hypertension; E11.9 Type 2 diabetes mellitus without complications; Z79.4 Long term (current) use of insulin; Z88.0 Allergy status to penicillin
CPT/HCPCS: 36415; 80048; 80076; 83735; 83880; 84484; 85025; 85610; 93005; 99285

== ENCOUNTER 2021-08-03 17:41 | Emergency (ER) | payer OTHER ==
--- OUTSIDE RECORDS SUMMARY | 2021-08-03 17:49 | XMS REPORT | Continuity of Care Document ---
:1940 Author Organization [facility] t Address [address] [place] [address] Care Team Providers Name Role Phone Pcp Primary Care Physician Unavailable Haresh Gore Attending Clinician KRISTIE NOONAN Attending Clinician Unavailable Saeed Naqvi Attending Clinician ROBERT FARFAN Attending Clinician Unavailable KRISTIE NOONAN Admitting Clinician Unavailable Saeed Naqvi Admitting Clinician ROBERT FARFAN Admitting Clinician Unavailable Problems Condition Condition Condition Status Onset Resolution Last Treating Co mments Source Name Details Category Date Date Treatment Clinician Date COVID-19 COVID-19 [facility] detected detected 00:[facility]: Medica l 00 Center BRBPR BRBPR Disease Active [facility] (bright (bright 06-27 [facility] - red blood red blood 00:00: Medi preeti per per 00 Center rectum) rectum) Anemia Anemia Disease Active [facility] 8-02 [facility] - 00:[facility]: Medical 00 Center ACUTE Diagnosis Active 2020-02-02 Mem oria TRAUMATIC 01-20 22:10:00 l PAIN ACUTE 00:00: Jose Luis TRAUMATIC 00 PAIN Active 01/20/2020 [facility] LIVER LAC Diagnosis Active 2020-01-20 Memoria 01-20 19:43:00 l LIVER 00:00: Jose Luis LAC 00 Active 01/20/2020 [facility] S/P CABG S/P CABG Disease Active 2018[facility] (coron[facility] (coronary 2- Luke s - artery artery 00:00: Medical bypass bypass 00 Center graft) graft) S/P S/P Disease Active 2018- [facility] carotid carotid 2- [facility] - endarterec endarterec 00:00: Me dicchristie jessa jessa 00 Center CAD CAD Disease Active 2018- [facility] (coronary (coronary 1- [facility] - artery artery 00:00: Medical disease) disease) 00 Center Carotid Carotid Disease Active [facility] stenosis, stenosis, 1-03 [facility] - right right 00:00: Medical 00 Center Chronic Problem Active 2009-112021-06-02 Johnnie wilder obstructiv 0-11 21:45:07 l e lung Chronic 00:00: Jose Luis disease obstructiv 00 (disorder) e lung disease (disorder) Active 09/05/2010 Problem 06/02/2021 Data migrated from [email or web address] on 04/26/15. Chris Neuro,[facility] Carotid Carotid Disease Active [facility] artery artery [facility] - occlusion occlusion [facility] Stroke Stroke Disease Active [facility] Hypertensi Hypertensi Disease Active [facility] on on [facility] Hyperlipid Hyperlipid Disease Active [facility] emia emia [facility] Dementia Problem Active 2021-06-02 Mem oria (disorder) 21:45:07 l Dementia Chris n (disorder) Active Problem 06/02/2021 [facility] Diabetes Problem Active 2021-06-02 Mem oria mellitus 21:45:07 l type 2 Diabetes Chris n (disorder) mellitus type 2 (disorder) Active Problem 06/02/2021 [facility] ACUTE PAIN Diagnosis Active 2020-02-02 Memoria DUE TO 22:10:00 l TRAUMA ACUTE Jose Luis PAIN DUE TO TRAUMA Active [facility] Cigarette Problem Resolve 2009-112021-06-02 2021-06-02 Memoria smoker d 0-11 21:45:07 21:45:07 l (finding) 00:00: Jose Luis Cigarette 00 smoker (finding) Resolved 09/05/2010 Problem 06/02/2021 Data migrated from [email or web address] on 04/26/15. 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 Family History Family Member Diagnosis Comments Start Date Stop Date Source Natural mother Breast cancer [facility] Social History Social Habit Start Date Stop Date Quantity Comments Source [facility] - [facility] Std Drinks [facility] History [facility] - Alcohol Binge Medical [facility] ter Sex Assigned At [facility] History of tobacco Current smoker [facility] - use [facility] Social History 2021-04-18 2021-04-18 [facility] 18:43:46 18:43:46 Jose Luis Cigarettes smoked 2020-06-27 2020-06-27 [facility] - current (pack per 00:00:00 00:00:00 [facility] day) - Reported Tobacco use and 2020-06-27 2020-06-27 Never used [facility] kes - exposure 00:00:00 00:00:00 [facility] Alcohol intake 2020-06-27 2020-06-27 Current drinker of [facility] - 00:00:00 00:00:00 alcohol (finding) [facility] Alcohol Comment 2018-11-06 2018-11-06 moderately [facility] St Denise kes - 00:00:00 00:00:00 [facility] History [facility] 2018-11-04 2018-11-[address] [facility] - Alcohol Frequency 00:00:00 00:00:00 [facility] Smoking Status Start Date Stop Date Source Former smoker 2020-06-27 00:00:00 2020-06-27 00:00:00 [facility] Social [facility] Medications Ordered Filled Start Stop Current Ordering Indication Dosage Frequency Signature Comments Components Source Medication Medication Date Date Medication? Clinician (SIG) Name Name metoprolol Yes 12.5 mg = Me moria tartrate 25 5-24 0.5 tab, l mg oral 18:43: PO, BID, # Herm nancy tablet 00 180 tab, 0 Refill(s) PreserVisio Yes PO, Daily, Memoria n 5-24 0 l 18:41: Refill(s) Multi Yes 0 Memoria Vitamin+ 5-24 Refill(s) l 18:40: Vitamin D3 Yes 0 Memoria 5-24 Refill(s) l 18:40: Humulin Yes 32 units, Memor ia 70/30 5-24 SUB-Q, 0 l 18:39: Refill(s) Metformin Yes 500 mg = 1 Me moria hydrochlori 5-24 tab, PO, l de 500 MG 18:39: BID, 0 Chris n Oral Tablet 00 Refill(s) lisinopriL No 20mg QD Take [address] (PRINIVIL,Z 07-01 tablet (20 L ukes - ESTRIL) 20 00:00: 23:59 mg total) M edical MG tablet 00 :00 by mouth Center daily Hold for systolic BP less than 125. No more refills through my office. amLODIPine No 5mg QD Take [address] (NORVASC) 5 07-01 tablet (5 Denise kes - MG tablet 00:00: 23:59 mg total) Me dical 00 :00 by mouth Center daily Hold if systolic BP less than 120. aspirin 81 Yes 81mg QD Take [address] MG EC 06-30 by mouth [facility] - tablet 17:40: daily. [place] [address] Center HUMULIN Yes Resume if [facility] 70/30 U-100 06-30 taking [facility] - INSULIN 100 00:00: prior to Me dical unit/mL 00 admission, Center (70-30) resume at injection prior home dose. hydrALAZINE 2020- No 50mg [id number] Take [address] (APRESOLINE 06-30 [id number] tablet (50 [facility] - ) 50 MG 00:00: 23:59 3D mg total) Medi preeti tablet 00 :00 by mouth 3 Center (three) times daily Hold for systolic BP less than 120. No more refills through my office. cyanocobala 2020-0 Yes 1,000 Memor ia min 1000 3-03 microgram l mcg with 18:28: = 1 tab, Emma nn salcaprozat 00 PO, Daily, e sodium # 30 tab, oral tablet 0 Refill(s) Folic Acid 2019-0 Yes 1 mg = 1 Mem oria 1 MG Oral 3-03 tab, PO, l Tablet 18:28: Daily, # [place] 00 30 tab, 0 Refill(s) thiamine 2020-0 Yes 100 mg = 1 Mem oria 100 mg oral 3-03 tab, PO, l tablet 18:28: Daily, # Jose Luis 00 30 tab, 0 Refill(s) amLODIPine 2019-0 Yes 5 mg = 1 Mem oria 5 mg oral 3-03 tab, PO, l tablet 18:28: Daily, # Jose Luis 00 30 tab, 0 Refill(s) Dextrose 2019-0 No 12.5 gm, Memor ia 50% Syringe 01-25 25 mL, l (D50W) 20:09: Route: IVP, Drug Form: INJ, Dosing Weight 68, kg, PRN, PRN Blood Glucose Results, Start date: 01/26/20 14:09:00 HAT BLOCKER, Duration: 30 day, Stop date: 02/25/20 15:08:00 CDT, 0 Glucagon 2019- No 1 mg, Memoria 01-25 Route: IM, l 20:09: Drug form: PDR/INJ, PRN, Dosing Weight 68, kg, PRN Blood Glucose Results, Start date: 01/26/20 14:09:00 HAT BLOCKER, Duration: 30 day, Stop date: 02/25/20 15:08:00 CDT, 0 Insulin 2019-0 No Notes: Memoria regular 01-25 (Same as: l 20:09: Humulin R) Roll in palms of hands gently; Do not shake vigorously . WASTE: F/P - Black; E - Municipal Trash Bin Stable for 31 days at room temperatur e Expires in days from ____Date Lisinopril No Notes: Memor ia 3- (Same as: l 15:00: Prinivil) Amlodipine No Notes: Memor ia 2-29 (Same as: l 15:00: Norvasc) Jose Luis 00 Aspirin 81 2020-0 No Notes: Do Me moria MG Enteric 2-29 not crush l Coated 15:00: or chew. [place] Tablet 00 (Same As: Ecotrin) Furosemide 2019-0 No Notes: Memor ia 20 MG Oral 2-29 (Same as: l Tablet 03:00: Lasix) [place] [Lasix] 00 May cause GI upset. Give with food or milk. NPH 2019-0 Yes 20 unit, Memoria Insulin, 2-28 SUB-Q, l Human 70 20:43: BID, 0 Jose Luis UNT/ML / 00 Refill(s) Regular Insulin, Human 30 UNT/ML Injectable Suspension [Humulin] gabapentin 2019- Yes 100 mg = 1 M emoria 100 MG Oral 2-28 cap, PO, l Capsule 20:43: Q8H, 0 Jose Luis 00 Refill(s) valACYclovi 2020-0 Yes 1 gm = 1 Me moria r 1 g oral 2-28 tab, PO, l tablet 20:43: Q12H, # 21 Emma nn 00 tab, 0 Refill(s) Hydrocortis 2019-0 Yes 1 appl, Mem oria one 25 2-28 TOP, TID, l MG/ML 20:43: 0 [place] Topical 00 Refill(s) Cream [Proctozone HC] cholestyram 2019-0 Yes = 1 pkt, Me moria ine 4 g/5 g 2-28 PO, BID, 0 l oral powder 20:43: Refill(s) H ermann 00 atorvastati 2019-0 Yes 40 mg = 1 M emoria n 40 mg 2-28 tab, PO, l oral tablet 20:43: Daily, 0 He rmann 00 Refill(s) spironolact 2020-0 Yes 25 mg = 1 M emoria one 25 mg 2-28 tab, PO, l oral tablet 20:43: Daily, 0 He rmann 00 Refill(s) lisinopril 2020-0 Yes 2.5 mg = 1 M emoria 2.5 mg oral 2-28 tab, PO, l tablet 20:43: Daily, 0 Jose Luis 00 Refill(s) carvedilol 2020-0 Yes 3.125 mg = M emoria 3.125 mg 2-28 1 tab, PO, l oral tablet 20:43: BID, 0 Herm nancy 00 Refill(s) Metformin 2019-0 Yes 2,000 mg = Me moria hydrochlori 2-28 2 tab, PO, l de 1000 MG 20:43: BID, 0 Emma nn Oral Tablet 00 Refill(s) solifenacin 2020-0 Yes 5 mg = 1 Me moria 5 mg oral 2-28 tab, PO, l tablet 20:43: Daily, 0 [place] 00 Refill(s) Furosemide 2019-0 Yes 20 mg = 1 Me moria 20 MG Oral 2-28 tab, PO, l Tablet 20:43: QPM, 0 Jose Luis Refill(s) Aspirin 81 2019-0 Yes 81 mg = 1 Me moria MG Enteric 2-28 tab, PO, l Coated 20:43: Daily [place] Tablet 00 carvedilol No Notes: Memor ia 2- Give with l 03:00: food. (Same As: Coreg) Magnesium No Notes: Memori a Sulfate 01-22 WASTE: F/P l 19:23: - Sink; E [place] - Municipal Trash Bin Iohexol No 100 mL, Memoria 01-22 Route: l 19:05: IVP, Drug Form: SOLN, Dosing Weight 68, kg, ONCALL, STAT, Start date: 01/22/20 13:05:00 HAT BLOCKER, Duration: 1 doses or times, Dose = 2.2ml/kg, Max dose = 100ml -- "To be infused by Radiology Staff ONLY" carvedilol No Notes: Memor ia - Give with l 17:09: food. [place] (Same As: Coreg) Enoxaparin No Notes: Memor ia 2-27 (Same as: l 10:00: Lovenox) Jose Luis Docusate No Notes: Memoria Sodium 50 2-27 (Same as l MG / 03:00: Senokot-S) sennosides, 00 Equiv. to [facility] 8.6 MG [place] Oral Tablet e. remove No Notes: Memoria patch 2-27 Remove l 03:00: patch 12 Jose Luis 00 hours after applicatio n each day. Thiamine No Notes: Memoria 2- (Same As: l 19:00: Vitamin B1) Folic Acid No Notes: Memor ia - (Same as: l 19:00: Folvite) Vitamin B12 No Notes: Johnnie wilder - (Same As: l 19:00: Vitamin B-12) Dextrose No 12.5 gm, Memor ia 50% Syringe - 25 mL, l (D50W) 16:13: Route: IVP, Drug Form: INJ, Dosing Weight 68, kg, PRN, PRN Blood Glucose Results, Start date: 01/21/20 10:13:00 HAT BLOCKER, Duration: 30 day, Stop date: 02/20/20 11:12:00 CDT, 0 Glucagon No 1 mg, Memoria 01-21 Route: IM, l 16:13: Drug form: PDR/INJ, PRN, Dosing Weight 68, kg, PRN Blood Glucose Results, Start date: 01/21/20 10:13:00 HAT BLOCKER, Duration: 30 day, Stop date: 02/20/20 11:12:00 CDT, 0 Insulin No Notes: Memoria regular - (Same as: l 16:13: Humulin R) Roll in palms of hands gently; Do not shake vigorously . WASTE: F/P - Black; E - Municipal Trash Bin Stable for 31 days at room temperatur e Expires in days from ____Date carvedilol No Notes: Memor ia -26 Give with l 16:06: food. Jose Luis (Same As: Coreg) Spironolact No Notes: Johnnie wilder one - (Same As: l 16:06: Aldactone) Hazardous Drug Group 2:Non-anti neoplastic Hazardous Drug -- Refer to safe handling procedure PPE [id number] Lidocaine No Notes: Memori a 0.05 MG/MG 01-21 (Same as: l Transdermal 15:00: Lidoderm) H ermann Patch 00 "Remove old patch before applicatio n of new patch" Miralax 2019- No Notes: Memoria 2- Dissolve l 15:00: in 8 oz of Jose Luis water or juice. (Same as: Miralax) Hydralazine No Notes: Johnnie wilder - (Same as: l 06:00: Apresoline ) Push over 5 minutes Tylenol No Notes: Max Johnnie wilder 01-21 acetaminop l 04:40: hen 4000 Jose Luis mg/day (4 gm/day). (Same as: Tylenol Extra Strength) Tramadol No Notes: Not Mem oria 01-21 to exceed l 04:40: 400mg/day. Jose Luis (Same As: Ultram) gabapentin No Notes: Memor ia 100 MG Oral 01-21 (Same as: l Capsule 04:40: Neurontin) Herm nancy Isolyte S 2019- No Notes: Memori a PH 7.4 01-21 (Same as: l 1,000 mL 04:38: Isolyte S Herm nancy 00 PH7.4, Normosol-R PH 7.4, Plasma-Lyt e A ) Isolyte S 2019-0 No 500 mL, Memor ia PH-7.4 01-21 Route: IV, l (Bolus) IV 02:43: ONCE, Chris n 00 Dosing Weight 68 kg, Start date: 01/20/20 20:43:00 HAT BLOCKER, Stop date: 01/20/20 20:43:00 HAT BLOCKER Morphine 2019- No 4 mg, Memoria 01-21 Route: l 02:26: IVP, ONCE, [place] 00 Dosing Weight 68, kg, Priority: STAT, Start date: 01/20/20 20:26:00 HAT BLOCKER, Stop date: 01/20/20 20:26:00 HAT BLOCKER Ondansetron No 4 mg, Memor ia 2 MG/ML 01-21 Route: IV, l Injectable 02:26: ONCE, Chris n Solution 00 Dosing [Zofran] Weight 68, kg, Start date: 01/20/20 20:26:00 HAT BLOCKER, Stop date: 01/20/20 20:26:00 HAT BLOCKER Fentanyl No 50 Memoria 2- microgram, l 01:18: Route: [place] 00 IVP, ONCE, Dosing Weight 68, kg, Priority: STAT, Start date: 01/20/20 19:18:00 HAT BLOCKER, Stop date: 01/20/20 19:18:00 HAT BLOCKER Saline No Notes: Memoria Flush 0.9% 2-26 Same as: l 00:58: BD [place] Posiflush Sterile polyethylen Yes Use daily [facility] e glycol 2-01 per [facility]ukes - (GLYCOLAX) 00:00: package Medi preeti 17 gram 00 instructio Center packet ns for constipati on. Is over-the-c ounter.. traZODone 2017-11 Yes 50mg Take [address] (DESYREL) 1-26 by mouth [facility] - 50 MG 00:00: every Medical tablet 00 night as Center needed. atorvastati 2017-11 Yes 40mg QD Take [address] [facility] (LIPITOR) 1-06 by mouth Luke s - 40 MG 00:00: daily. Medical tablet [address] [place] [address] furosemide 2017-11 Yes 20mg QD Take [address] (LASIX) 20 0-17 by mouth [facility] - MG tablet 00:00: daily. Medica l [address] [place] [address] VESICARE 5 2017-11 Yes 5mg QD Take [address] mg tablet 0-17 by mouth [facility] - 00:00: daily. Medical 00 [place] metFORMIN 2017-11 Yes 1000mg Q.5D Take 1,[address] (GLUCOPHAGE 0-06 mg by [facility] - -XR) 500 MG 00:00: mouth 2 Med ical 24 hr 00 (two) Center tablet times daily. Vital Signs Vital Name Observation Time Observation Value Comments Source Systolic (mm Hg) 2021-04-18 18:24:00 Johnnie riaterence Amaya Diastolic (mm Hg) 2021-04-18 18:24:00 [facility] orial Jose Luis Heart Rate 2021-04-18 18:24:00 [facility] Respitory Rate 2021-04-18 18:24:00 Nasrin al [place] Weight 2021-04-18 18:24:00 [facility] Temperature Oral (F) 2020-01-28 18:07:00 98.2 F [facility] Heart Rate 2020-01-28 18:07:00 [facility] Systolic (mm Hg) 2020-01-28 18:07:00 Johnnie rial Jose Luis Diastolic (mm Hg) 2020-01-28 18:07:00 Mem orial [place] Temperature Oral (F) 2020-01-28 16:58:00 98.4 F [facility] [place] Heart Rate 2020-01-28 16:58:00 [facility] Jose Luis Respitory Rate 2020-01-28 16:58:00 Memori al Jose Luis Systolic (mm Hg) 2020-01-28 16:58:00 Johnnie rial [place] Diastolic (mm Hg) 2020-01-28 16:58:00 Mem orial Jose Luis Temperature Oral (F) 2020-01-28 14:49:00 98.1 F [facility] Jose Luis Heart Rate 2020-01-28 14:49:00 [facility] [place] Luis Respitory Rate 2020-01-28 14:49:00 Memori al Jose Luis Systolic (mm Hg) 2020-01-28 14:49:00 Johnnie rial Jose Luis Diastolic (mm Hg) 2020-01-28 14:49:00 Mem orial [place] Respitory Rate 2020-01-28 09:35:00 Memori al [place] Height 2020-01-21 00:44:00 172.72 cm [facility] [place] BMI Calculated 2020-01-21 00:44:00 Memori al [place] Weight 2020-01-21 00:44:00 [facility] [place] Procedures Procedure Date / Time Performed Performing Clinician [facility] e Procedure on heart Memorial Herm nancy Plan of Care Planned Activity Planned Date [...] no IPPE)] Future Scheduled 2004 PNEUMOCOCCAL 65+ [facility] - Test 00:00:00 (1 of 1 - Medical Center [id number] PCV13) [code = PNEUMOCOCCAL 65+ YRS (1 of 1 - [id number] PCV13)] Encounters Start End Encounter Admission Attending Care Care Encounter Source Date/Time Date/Time Type Type Clinicians Facility Department ID 2021-05-31 2021-05-31 Ambulatory nullFlavo MNA [id number] Memoria 16:15:00 16:15:00 Pre-Reg r Neurology 01 l [place] 2021-05-31 2021-05-31 Outpatient COLLIN POLANCO [id number] Memoria 11:15:00 11:15:00 01 l [place] 2021-05-31 2021-05-31 [facility] [id number] 11:15:00 11:15:00 Corey 01 [facility] 2021-04-18 2021-04-19 Outpatient nullFlavo MNA [id number] Memoria 18:30:00 04:59:59 r Neurology 00 l [place] 2021-04-18 2021-04-18 Outpatient JENARO Gore MISCHER [id number] 13:30:00 23:59:59 Corey 00 [facility] 2021-04-18 2021-04-18 Outpatient COLLIN POLANCO [id number] Memoria 13:30:00 13:30:00 00 [facility] 2020-01-21 2020-01-28 Inpatient nullFlavo [facility] [id number] Memoria 00:42:00 19:30:00 r Jose Luis 56 [facility] 2020-01-20 2020-01-28 Outpatient Driss [facility] [id number] 18:42:00 13:30:00 Edil Ewing Results Test Description Test Time Test Comments Results Result Comments Source POCT-GLUCOSE METER 2020-06-30 17:10:00 Test Item Value Reference Range Interpretation Comme nts POC-GLUCOSE METER (Transgenomic) 155 mg/dL 70-110 H : TESTED AT [address] (test code = 1538) [facility] [place], [address]: Psychologist Engineering/Techni bhavya ID = [id number] for Jinny Penn POCT-GLUCOSE [id number] 13:50:00 Test Item Value Reference Range Interpretation Comments POC-GLUCOSE METER 153 mg/dL 70-110 H : TESTED A T [place] [address] ([facility]) (test code = [place], 1538) [address]: Psychologist Engineering/Techni bhavya ID = [id number] for Gemini Dodson POCT-GLUCOSE [id number] 07:49:00 Test Item Value Reference Range Interpretation Comments POC-GLUCOSE METER 137 mg/dL 70-110 H : TESTED A T [facility] 67[address] (BEAKER) (test code = [place], 1538) [address]: Psychologist Engineering/Techni bhavya ID = [id number] for LORETA CASTRO CBC W/PLT COUNT & AUTO [id number] 06:39:00 Test Item Value Reference Range Interpretation Comments WHITE BLOOD CELL COUNT (BEAKER) 5.7 K/ L 3.5-10.5 (test code = 775) RED BLOOD CELL COUNT (BEAKER) 3.77 M/ L 3.93-5.22 L (test code = 761) HEMOGLOBIN (BEAKER) (test code = 11.5 GM/DL 11.2-15.7 410) HEMATOCRIT (BEAKER) (test code = 36.8 % 34.1-44.9 411) MEAN CORPUSCULAR VOLUME (BEAKER) 97.6 fL 79.4-94.8 H (test code = 753) MEAN CORPUSCULAR HEMOGLOBIN 30.5 pg 25.6-32.2 (BEAKER) (test code = 751) MEAN CORPUSCULAR HEMOGLOBIN CONC 31.3 GM/DL 32.2-35.5 L (BEAKER) (test code = 752) RED CELL DISTRIBUTION WIDTH 18.8 % 11.7-14.4 H (BEAKER) (test code = 412) PLATELET COUNT (BEAKER) (test 246 K/CU MM 150-450 code = 756) MEAN PLATELET VOLUME (BEAKER) 11.9 fL 9.4-12.3 (test code = 754) NUCLEATED RED BLOOD CELLS 0 /100 WBC 0-0 (BEAKER) (test code = 413) NEUTROPHILS RELATIVE PERCENT 62 % (BEAKER) (test code = 429) LYMPHOCYTES RELATIVE PERCENT 29 % (BEAKER) (test code = 430) MONOCYTES RELATIVE PERCENT 8 % (BEAKER) (test code = 431) EOSINOPHILS RELATIVE PERCENT 1 % (BEAKER) (test code = 432) BASOPHILS RELATIVE PERCENT 0 % (BEAKER) (test code = 437) NEUTROPHILS ABSOLUTE COUNT 3.50 K/ L 1.56-6.13 (BEAKER) (test code = 670) LYMPHOCYTES ABSOLUTE COUNT 1.64 K/ L 1.18-3.74 (BEAKER) (test code = 414) MONOCYTES ABSOLUTE COUNT (BEAKER) 0.44 K/ L 0.24-0.36 H (test code = 415) EOSINOPHILS ABSOLUTE COUNT 0.04 K/ L 0.04-0.36 (BEAKER) (test code = 416) BASOPHILS ABSOLUTE COUNT (BEAKER) 0.02 K/ L 0.01-0.08 (test code = 417) IMMATURE GRANULOCYTES-RELATIVE 1 % 0-1 PERCENT (BEAKER) (test code = 2801) POCT-GLUCOSE [id number] 20:49:00 Test Item Value Reference Range Interpretation Comments POC-GLUCOSE METER 138 mg/dL 70-110 H : TESTED A T [facility] [address] ([facility]) (test code = [facility] Zbigniew [facility], 1538) [address]: Psychologist Engineering/Techni bhavya ID = [id number] for RHONDA NEVAREZ POCT-GLUCOSE [id number] 17:00:00 Test Item Value Reference Range Interpretation Comments POC-GLUCOSE METER 137 mg/dL 70-110 H : Notified RN/MD: ([facility]) (test code = TESTED AT [facility] 6720 1538) [facility], [address]: Psychologist Engineering/Techni bhavya ID = [id number] for RUTHIE OCHOA CBC W/PLT COUNT & AUTO [id number] 12:31:00 Test Item Value Reference Range Interpretation Comments WHITE BLOOD CELL COUNT (BEAKER) 6.2 K/ L 3.5-10.5 (test code = 775) RED BLOOD CELL COUNT (BEAKER) 3.92 M/ L 3.93-5.22 L (test code = 761) HEMOGLOBIN (BEAKER) (test code = 11.9 GM/DL 11.2-15.7 410) HEMATOCRIT (BEAKER) (test code = 38.6 % 34.1-44.9 411) MEAN CORPUSCULAR VOLUME (BEAKER) 98.5 fL 79.4-94.8 H (test code = 753) MEAN CORPUSCULAR HEMOGLOBIN 30.4 pg 25.6-32.2 (BEAKER) (test code = 751) MEAN CORPUSCULAR HEMOGLOBIN CONC 30.8 GM/DL 32.2-35.5 L (BEAKER) (test code = 752) RED CELL DISTRIBUTION WIDTH 18.9 % 11.7-14.4 H (BEAKER) (test code = 412) PLATELET COUNT (BEAKER) (test 283 K/CU MM 150-450 code = 756) MEAN PLATELET VOLUME (BEAKER) 12.2 fL 9.4-12.3 (test code = 754) NUCLEATED RED BLOOD CELLS 0 /100 WBC 0-0 (BEAKER) (test code = 413) (MANUAL DIFFERENTIAL)2020-06-29 12:31:00 Test Item Value Reference Range Interpretation Comments NEUTROPHILS - REL (DIFF) (BEAKER) 64 % (test code = 1359) LYMPHOCYTES - REL (DIFF) (BEAKER) 23 % (test code = 1360) MONOCYTES - REL (DIFF) (BEAKER) 9 % (test code = 1361) EOSINOPHILS - REL (DIFF) (BEAKER) 1 % (test code = 1362) BASOPHILS - REL (DIFF) (BEAKER) 0 % (test code = 1363) MYELOCYTES-REL (DIFF) (BEAKER) 1 % 0-0 H (test code = 1594) ATYPICAL LYMPHOCYTE - REL (DIFF) 2 % 0-0 H (BEAKER) (test code = 260) NEUTROPHILS - ABS (DIFF) (BEAKER) 3.97 K/ L 1.80-8.00 (test code = 1365) LYMPHOCYTES - ABS (DIFF) (BEAKER) 1.43 K/ L 1.48-4.50 L (test code = 1366) MONOCYTES - ABS (DIFF) (BEAKER) 0.56 K/ L 0.00-1.30 (test code = 1367) EOSINOPHILS - ABS (DIFF) (BEAKER) 0.06 K/ L 0.00-0.50 (test code = 1368) BASOPHILS - ABS (DIFF) (BEAKER) 0.00 K/ L 0.00-0.20 (test code = 1369) ATYPICAL LYMPHOCYTES - ABS (DIFF) 0.12 K/ L 0.00-0.00 H (BEAKER) (test code = 263) MYELOCYTES-ABS (DIFF) (BEAKER) 0.06 K/ L 0.00-0.00 H (test code = 1593) TOTAL COUNTED (BEAKER) (test code = 100 1351) WBC MORPHOLOGY (BEAKER) (test code Normal = 487) PLT MORPHOLOGY (BEAKER) (test code Normal = 486) ANISOCYTOSIS (BEAKER) (test code = 1+ few 961) POCT-GLUCOSE [id number] 12:24:00 Test Item Value Reference Range Interpretation Comments POC-GLUCOSE METER 139 mg/dL 70-110 H : Notified RN/MD: (BEAKER) (test code = TESTED AT [facility] 6720 1538) [facility], [id number]: Psychologist Engineering/Techni bhavya ID = [id number] for AN RUTHIE WARREN [id number] 08:26:00 Test Item Value Reference Range Interpretation Comments FERRITIN (BEAKER) (test code = 406.03 ng/mL 5.00-275.00 H 361) Psychologist Engineering ID - NTPPOCT-GLUCOSE [id number] 07:44:00 Test Item Value Reference Range Interpretation Comments POC-GLUCOSE METER 126 mg/dL 70-110 H : TESTED A T [facility] 6720 (BEAKER) (test code = [facility], 1538) [address]: Psychologist Engineering/Techni bhavya ID = [id number] for AN RUTHIE WARREN [id number] 07:44:00 Test Item Value Reference Range Interpretation Comments MAGNESIUM (BEAKER) (test code = 1.6 mg/dL 1.6-2.6 627) Psychologist Engineering ID - NTPBASIC METABOLIC [id number] 07:44:00 Test Item Value Reference Range Interpretation Comments SODIUM (BEAKER) 141 meq/L 136-145 (test code = 381) POTASSIUM (BEAKER) 4.5 meq/L 3.5-5.1 (test code = 379) CHLORIDE (BEAKER) 110 meq/L 98-107 H (test code = 382) CO2 (BEAKER) (test 24 meq/L 22-29 code = 355) BLOOD UREA NITROGEN 9 mg/dL 7-21 (BEAKER) (test code = 354) CREATININE (BEAKER) 1.02 mg/dL 0.57-1.25 (test code = 358) GLUCOSE RANDOM 146 mg/dL 70-105 H (BEAKER) (test code = 652) CALCIUM (BEAKER) 9.3 mg/dL 8.4-10.2 (test code = 697) EGFR (BEAKER) (test 63 mL/min/1.73 ESTIMA DMITRY GFR IS code = 1092) sq m NOT ACCURATE CREATININE CLEARANCE IN PREDICTING GLOMERULAR FILTRATION RATE . ESTIMATED GFR I S NOT APPLICABLE FOR DIALYSIS PATIEN TS. Psychologist Engineering ID - NTPHEPATIC FUNCTION [id number] 07:44:00 Test Item Value Reference Range Interpretation Comments TOTAL PROTEIN (BEAKER) (test code = 7.8 gm/dL 6.0-8.3 770) ALBUMIN (BEAKER) (test code = 1145) 3.6 g/dL 3.5-5.0 BILIRUBIN TOTAL (BEAKER) (test code 0.7 mg/dL 0.2-1.2 = 377) BILIRUBIN DIRECT (BEAKER) (test 0.3 mg/dL 0.1-0.5 code = 706) ALKALINE PHOSPHATASE (BEAKER) (test 64 U/L 40-150 code = 346) AST (SGOT) (BEAKER) (test code = 31 U/L 5-34 353) ALT (SGPT) (BEAKER) (test code = 24 U/L 6-55 347) Psychologist Engineering ID - NTPC-REACTIVE [id number] 07:44:00 Test Item Value Reference Range Interpretation Comments C-REACTIVE PROTEIN (BEAKER) (test 1.13 mg/dL 0.00-0.50 H code = 676) Psychologist Engineering ID - [id number] 07:17:00 Test Item Value Reference Range Interpretation Comments D-DIMER QUANTITATIVE (BEAKER) 3.75 MG/L FEU <0.50 H (test code = 671) Intended Use: The D-Dimer Assay can be used to aid in the diagnosis of Deep Vein Thrombosis (DVT) and Pulmonary Embolism Disease (PED).In patients with low pre- test probability, various studies concerning STA Liatest D-dimer test have reported that with a cutoff value of 0.50 MG/L FEU, the Negative Predictive Value (NPV) regarding the exclusion of thrombosis is within 95-100% range. PT/[id number] 07:07:00 Test Item Value Reference Range Interpretation Comments PROTIME (BEAKER) (test code = 14.5 seconds 11.9-14.2 H 759) INR (BEAKER) (test code = 370) 1.2 <=5.9 PARTIAL THROMBOPLASTIN TIME 28.0 seconds 22.5-36.0 (BEAKER) (test code = 760) Effective 04/23/2019: PT Reference Range ChangeNew: 11.9-14.2 Previous: 11.7- 14.7RECOMMENDED COUMADIN/WARFARIN INR THERAPY RANGESSTANDARD DOSE: 2.0-3.0 Includes: PROPHYLAXIS for venous thrombosis, systemic embolization; TREATMENT for venous thrombosis and/or pulmonary embolus.HIGH RISK: Target INR is2.5-3.5 for patients wiht mechanical heart valves.POCT-GLUCOSE [id number] 22:26:00 Test Item Value Reference Range Interpretation Comments POC-GLUCOSE METER 179 mg/dL 70-110 H : TESTED A T [facility] 6720 (Transgenomic) (test code = [facility], 1538) [id number]: Psychologist Engineering/Techni bhavya ID = [id number] for TAHMINA AWAD POCT-GLUCOSE [id number] 17:20:00 Test Item Value Reference Range Interpretation Comments POC-GLUCOSE METER 172 mg/dL 70-110 H : TESTED A T [facility] 6720 (Transgenomic) (test code = [facility], 1538) [address]: Psychologist Engineering/Techni bhavya ID = [id number] for Yo savi, Cassidy POCT-GLUCOSE [id number] 12:48:00 Test Item Value Reference Range Interpretation Comments POC-GLUCOSE METER 158 mg/dL 70-110 H : TESTED A T [facility] 6720 (Transgenomic) (test code = [facility], 1538) 15[address]: Psychologist Engineering/Techni bhavya ID = [id number] for Yo savi, Cassidy LACTATE DEHYDROGENASE (LDH)2020-06-28 11:32:00 Test Item Value Reference Range Interpretation Comments LACTATE DEHYDROGENASE (Jump Ramp GamesAKER) (test 406 U/L 125-220 H code = 635) Psychologist Engineering ID - PIAYA LHEMOGLOBIN [id number] 08:59:00 Test Item Value Reference Range Interpretation Comments HEMOGLOBIN A1C (Jump Ramp GamesAKER) (test code = 7.0 % 4.3-6.1 H 368) POCT-GLUCOSE [id number] 08:19:00 Test Item Value Reference Range Interpretation Comments POC-GLUCOSE METER 124 mg/dL 70-110 H : TESTED A T [facility] 6720 (Transgenomic) (test code = [facility], 1538) [address]: Psychologist Engineering/Techni bhavya ID = [id number] for FREDY SANCHEZ [id number] 08:08:00 Test Item Value Reference Range Interpretation Comments MAGNESIUM (BEAKER) (test code = 1.7 mg/dL 1.6-2.6 627) Psychologist Engineering ID - WALI LBASIC METABOLIC [id number] 08:08:00 Test Item Value Reference Range Interpretation Comments SODIUM (BEAKER) 140 meq/L 136-145 (test code = 381) POTASSIUM (BEAKER) 4.0 meq/L 3.5-5.1 (test code = 379) CHLORIDE (BEAKER) 108 meq/L 98-107 H (test code = 382) CO2 (BEAKER) (test 26 meq/L 22-29 code = 355) BLOOD UREA NITROGEN 7 mg/dL 7-21 (BEAKER) (test code = 354) CREATININE (BEAKER) 1.08 mg/dL 0.57-1.25 (test code = 358) GLUCOSE RANDOM 144 mg/dL 70-105 H (BEAKER) (test code = 652) CALCIUM (BEAKER) 8.9 mg/dL 8.4-10.2 (test code = 697) EGFR (BEAKER) (test 59 mL/min/1.73 ESTIMA DMITRY GFR IS code = 1092) sq m NOT ACCURATE CREATININE CLEARANCE IN PREDICTING GLOMERULAR FILTRATION RATE . ESTIMATED GFR I S NOT APPLICABLE FOR DIALYSIS PATIEN TS. Psychologist Engineering ID - WALI LHEPATIC FUNCTION [id number] 08:08:00 Test Item Value Reference Range Interpretation Comments TOTAL PROTEIN (BEAKER) (test code = 7.5 gm/dL 6.0-8.3 770) ALBUMIN (BEAKER) (test code = 1145) 3.4 g/dL 3.5-5.0 L BILIRUBIN TOTAL (BEAKER) (test code 0.8 mg/dL 0.2-1.2 = 377) BILIRUBIN DIRECT (BEAKER) (test 0.4 mg/dL 0.1-0.5 code = 706) ALKALINE PHOSPHATASE (BEAKER) (test 60 U/L 40-150 code = 346) AST (SGOT) (BEAKER) (test code = 33 U/L 5-34 353) ALT (SGPT) (BEAKER) (test code = 26 U/L 6-55 347) Psychologist Engineering ID - PIAYA [id number] 06:30:00 Test Item Value Reference Range Interpretation Comments PROTIME (BEAKER) (test code = 15.1 seconds 11.9-14.2 H 759) INR (BEAKER) (test code = 370) 1.2 <=5.9 PARTIAL THROMBOPLASTIN TIME 30.7 seconds 22.5-36.0 (BEAKER) (test code = 760) Effective 04/23/2019: PT Reference Range ChangeNew: 11.9-14.2 Previous: 11.7- 14.7RECOMMENDED COUMADIN/WARFARIN INR THERAPY RANGESSTANDARD DOSE: 2.0-3.0 Includes: PROPHYLAXIS for venous thrombosis, systemic embolization; TREATMENT for venous thrombosis and/or pulmonary embolus.HIGH RISK: Target INR is2.5-3.5 for patients wiht mechanical heart valves.PROTHROMBIN [id number] 06:29:00 Test Item Value Reference Range Interpretation Comments PROTIME (BEAKER) (test code = 15.1 seconds 11.9-14.2 H 759) INR (BEAKER) (test code = 370) 1.2 <=5.9 Effective 04/23/2019: PT Reference Range ChangeNew: 11.9-14.2 Previous: 11.7- 14.7RECOMMENDED COUMADIN/WARFARIN INR THERAPY RANGESSTANDARD DOSE: 2.0-3.0 Includes: PROPHYLAXIS for venous thrombosis, systemic embolization; TREATMENT for venous thrombosis and/or pulmonary embolus.HIGH RISK: Target INR is2.5-3.5 for patients wiht mechanical heart valves.POCT-GLUCOSE [id number] 22:00:00 Test Item Value Reference Range Interpretation Comments POC-GLUCOSE METER 208 mg/dL 70-110 H : TESTED A T [facility] 6720 (Transgenomic) (test code = [facility] [place], 1538) [address]: Psychologist Engineering/Techni bhavya ID = [id number] for DANIELS KAILEY POCT-GLUCOSE [id number] 16:10:00 Test Item Value Reference Range Interpretation Comments POC-GLUCOSE METER 152 mg/dL 70-110 H : TESTED A T [facility] 6720 (Transgenomic) (test code = [facility] [place], 1538) [address]: Psychologist Engineering/Techni bhavya ID = [id number] for AUNDREA ALEXANDRA POCT-GLUCOSE [id number] 11:54:00 Test Item Value Reference Range Interpretation Comments POC-GLUCOSE METER 157 mg/dL 70-110 H : TESTED A T [facility] 6720 (BEAKER) (test code = [facility] [place], 1538) [address]: Psychologist Engineering/Techni bhavya ID = [id number] for CA LORETA MOROCHO CBC W/PLT COUNT & AUTO [id number] 09:49:00 Test Item Value Reference Range Interpretation Comments WHITE BLOOD CELL COUNT (BEAKER) 5.7 K/ L 3.5-10.5 (test code = 775) RED BLOOD CELL COUNT (BEAKER) 3.93 M/ L 3.93-5.22 (test code = 761) HEMOGLOBIN (BEAKER) (test code = 12.0 GM/DL 11.2-15.7 410) HEMATOCRIT (BEAKER) (test code = 38.4 % 34.1-44.9 411) MEAN CORPUSCULAR VOLUME (BEAKER) 97.7 fL 79.4-94.8 H (test code = 753) MEAN CORPUSCULAR HEMOGLOBIN 30.5 pg 25.6-32.2 (BEAKER) (test code = 751) MEAN CORPUSCULAR HEMOGLOBIN CONC 31.3 GM/DL 32.2-35.5 L (BEAKER) (test code = 752) RED CELL DISTRIBUTION WIDTH 18.5 % 11.7-14.4 H (BEAKER) (test code = 412) PLATELET COUNT (BEAKER) (test 221 K/CU MM 150-450 code = 756) MEAN PLATELET VOLUME (BEAKER) 12.5 fL 9.4-12.3 H (test code = 754) NUCLEATED RED BLOOD CELLS 0 /100 WBC 0-0 (BEAKER) (test code = 413) (CELLAVISION MANUAL DIFF)2020-06-27 09:49:00 Test Item Value Reference Range Interpretation Comments NEUTROPHILS - REL 70 % (CELLAVISION)(BEAKER) (test code = 2816) LYMPHOCYTES - REL 19 % (CELLAVISION)(BEAKER) (test code = 2817) MONOCYTES - REL 9 % (CELLAVISION)(BEAKER) (test code = 2818) EOSINOPHILS - REL 1 % (CELLAVISION)(BEAKER) (test code = 2819) ATYPICAL LYMPHOCYTES - REL 1 % 0-0 H (CELLAVISION)(BEAKER) (test code = 2829) NEUTROPHILS - ABS 3.99 K/ul 1.56-6.13 (CELLAVISION)(BEAKER) (test code = 2830) LYMPHOCYTES - ABS 1.08 K/ul 1.18-3.74 L (CELLAVISION)(BEAKER) (test code = 2831) MONOCYTES - ABS 0.51 K/uL 0.24-0.36 H (CELLAVISION)(BEAKER) (test code = 2832) EOSINOPHILS - ABS 0.06 K/uL 0.04-0.36 (CELLAVISION)(BEAKER) (test code = 2834) ATYPICAL LYMPHOCYTES - ABS 0.06 K/uL 0.00-0.00 H (CELLAVISION)(BEAKER) (test code = 2858) TOTAL COUNTED (BEAKER) (test code 100 = 1351) WBC MORPHOLOGY (BEAKER) (test Normal code = 487) PLT MORPHOLOGY (BEAKER) (test Normal code = 486) POLYCHROMATOPHILLIC RBCS(BEAKER) 2+ moderate (test code = 478) ANISOCYTOSIS (BEAKER) (test code 1+ few = 961) POIKILOCYTES (BEAKER) (test code 1+ few = 966) OVALOCYTES (BEAKER) (test code = 1+ few 477) ARTIFACT (CELLAVISION)(BEAKER) Present (test code = 3432) PLATELET CONCENTRATION Adequate (CELLAVISION)(BEAKER) (test code = 3438) Psychologist Engineering ID - Brooke OverholtUser comments: Slide comments:RAD, CHEST, 1 VIEW, NON [id number] 09:38:00Reason for exam:->check for pacemakerShould this be performed at the bedside?->YesFINAL REPORT Chest, one view. HISTORY: check for pacemaker COMPARISON: Radiograph from 12/20/2018 IMPRESSION: There are patchy opacities in the right lower lung, most consistent with pneumonia. No pleural effusion or pneumothorax. The cardiac silhouette is normal in size and unchanged. Prior CABG. There are subacute, healing fractures of the right posterior fifth rib and the right lateral ninth rib. Old, healed right posterior fourth rib fracture. Moderate rightward convex curvature of the lower thoracic spine. Signed: Clovis Eli MDReport Verified Date/Time: 06/27/2020 09:38:45 Reading Location: [facility] C013Y CT Body Reading Room POCT-GLUCOSE [id number] 07:15:00 Test Item Value Reference Range Interpretation Comments POC-GLUCOSE METER 130 mg/dL 70-110 H : TESTED A T [facility] 6720 (BEAKER) (test code = [facility], 1538) [id number]: Psychologist Engineering/Techni bhavya ID = [id number] for ALMITA CUI [id number] 06:54:00 Test Item Value Reference Range Interpretation Comments MAGNESIUM (BEAKER) (test code = 1.4 mg/dL 1.6-2.6 L 627) Psychologist Engineering ID - WALI LBASIC METABOLIC [id number] 06:54:00 Test Item Value Reference Range Interpretation Comments SODIUM (BEAKER) 139 meq/L 136-145 (test code = 381) POTASSIUM (BEAKER) 3.9 meq/L 3.5-5.1 (test code = 379) CHLORIDE (BEAKER) 108 meq/L 98-107 H (test code = 382) CO2 (BEAKER) (test 24 meq/L 22-29 code = 355) BLOOD UREA NITROGEN 8 mg/dL 7-21 (BEAKER) (test code = 354) CREATININE (BEAKER) 0.89 mg/dL 0.57-1.25 (test code = 358) GLUCOSE RANDOM 137 mg/dL 70-105 H (BEAKER) (test code = 652) CALCIUM (BEAKER) 9.1 mg/dL 8.4-10.2 (test code = 697) EGFR (BEAKER) (test 74 mL/min/1.73 ESTIMA DMITRY GFR IS code = 1092) sq m NOT ACCURATE CREATININE CLEARANCE IN PREDICTING GLOMERULAR FILTRATION RATE . ESTIMATED GFR I S NOT APPLICABLE FOR DIALYSIS PATIEN TS. Psychologist Engineering ID - WALI LHEPATIC FUNCTION [id number] 06:54:00 Test Item Value Reference Range Interpretation Comments TOTAL PROTEIN (BEAKER) (test code = 7.8 gm/dL 6.0-8.3 770) ALBUMIN (BEAKER) (test code = 1145) 3.6 g/dL 3.5-5.0 BILIRUBIN TOTAL (BEAKER) (test code 0.7 mg/dL 0.2-1.2 = 377) BILIRUBIN DIRECT (BEAKER) (test 0.4 mg/dL 0.1-0.5 code = 706) ALKALINE PHOSPHATASE (BEAKER) (test 59 U/L 40-150 code = 346) AST (SGOT) (BEAKER) (test code = 47 U/L 5-34 H 353) ALT (SGPT) (BEAKER) (test code = 33 U/L 6-55 347) Psychologist Engineering ID - WALI LTROPONIN [id number] 06:54:00 Test Item Value Reference Range Interpretation Comments TROPONIN I (BEAKER) (test code = 0.04 ng/mL 0.00-0.03 H 397) Troponin I (TnI) levels must be [...] failure, acidosis, acute neurological disease, and persistent tachyarrhythmia.Psychologist Engineering ID - WALI LPROTHROMBIN [id number] 06:11:00 Test Item Value Reference Range Interpretation Comments PROTIME (BEAKER) (test code = 14.4 seconds 11.9-14.2 H 759) INR (BEAKER) (test code = 370) 1.2 <=5.9 Effective 04/23/2019: PT Reference Range ChangeNew: 11.9-14.2 Previous: 11.7- 14.7RECOMMENDED COUMADIN/WARFARIN INR THERAPY RANGESSTANDARD DOSE: 2.0-3.0 Includes: PROPHYLAXIS for venous thrombosis, systemic embolization; TREATMENT for venous thrombosis and/or pulmonary embolus.HIGH RISK: Target INR is2.5-3.5 for patients wiht mechanical heart valves.[id number] 06:11:00 Test Item Value Reference Range Interpretation Comments PROTIME (BEAKER) (test code = 14.4 seconds 11.9-14.2 H 759) INR (BEAKER) (test code = 370) 1.2 <=5.9 PARTIAL THROMBOPLASTIN TIME 30.8 seconds 22.5-36.0 (BEAKER) (test code = 760) Effective 04/23/2019: PT Reference Range ChangeNew: 11.9-14.2 Previous: 11.7- 14.7RECOMMENDED COUMADIN/WARFARIN INR THERAPY RANGESSTANDARD DOSE: 2.0-3.0 Includes: PROPHYLAXIS for venous thrombosis, systemic embolization; TREATMENT for venous thrombosis and/or pulmonary embolus.HIGH RISK: Target INR is2.5-3.5 for patients wiht mechanical heart valves.[id number] 11:32:008.3 [facility] WjscbspDNBWBMJFZI3453-87-64 11:32:000.7[facility]ann[facility]Y 2020-01-27 11:32:000.4[facility] EdhkzkbGXILMYTAOX6553-68-80 11:32:007.8[facility] PxekxwiMSUSXYKONO1210-63-72 11:32:001.7[facility] JhiegkjJQVGRLKGHT8620-79-09 11:32:000.9[facility] GobxklvIZOJBLSLHE6852-97-93 11:32:000.1[facility] TVHRPIBMQT6295-25-64 11:32:001+ *ABN*(01/27/20 5:32 AM)[facility] 2020-01-27 11:32:001+ (01/27/20 5:32 AM)[facility]annCHEM AKUCN1211-22-74 11:32:87291Kxsqyigp HermannCHEM MFUNY4148-08-04 11:32:0041[facility]annCHEM UMWNO9177-00-67 11:32:001.14[facility]annCHEM VRFQL5202-04-03 11:32:35614 [facility]annCHE[facility] XBROW1381-58-98 11:32:004.5[facility]annCHEM PANEL 2020-01-27 11:32:68982Vgehduah HermannCHEM CNFOF4385-97-62 11:32:0026[facility]annCHEM SHIYN8608-87-08 11:32:009.1[facility]annCHEM FOWXB7492-97-10 11:32:0011.5[facility]annCHEM JYPIV0251-08-75 11:32:0052[facility] KLMGNBWZIF8064-86-92 11:32:0010.5[facility] ZokcgwzJDKRIOZCKT1259-25-78 11:32:00 2.11[facility] QbetphqEOFNYLPXID8737-92-61 11:32:007.4[facility]annHEMATOLOGY 2020-01-27 11:32:0022.0[facility] GexhwowBLGXSIVUSL4118-59-99 11:32:07386.1 [facility] TchlhsmWKALTWXVSS1526-55-84 11:32:00 Test Item Value Reference Range Interpretation Comments MCH (test code = MCH) 35.1 pg 27.0-31.0 [facility] HpjojllPTLEWJJDFJ1309-22-96 11:32:0033.7[facility]annHEMATOLOGY 2020-01-27 11:32:0017.9[facility] TnwlmuyTNDBNIGJUH5023-24-73 11:32:46764Fbdslwhj SlyvwfsIUYKRKINQZ8374-59-23 11:32:0011.0[facility] OsefrbzMQSJFYXKFH2545-19-93 11:32:00Normal (01/27/20 5:32 AM)[facility] GdhhavkQZMSYVNTCS3254-95-38 11:32:0074.0 [facility] TberzzdWFFBHEMVDV3337-25-56 11:32:0016.6[facility]annHEMATOLOGY 2020-01-27 03:11:000.37[facility] HermannCHEM JDHEV7448-89-36 11:54:36669Tsikkxoz HermannCHEM KQOXY9999-79-12 11:54:0032[facility]annCHEM GGKKD6312-89-29 11:54:001.08[facility]annCHEM GVHCN8381-02-61 11:54:07941Ijopuvif HermannCHEM AUHBN4018-90-86 11:54:004.7[facility]annCHEM XJEON7008-56-15 11:54:91345 [facility]annCHE[facility] EJCRF5382-70-43 11:54:0027[facility] HermannCHEM PANEL 2020-01-26 11:54:009.1[facility] HermannCHEM IOKOM9227-44-51 11:54:009.7[facility] HermannCHEM HZZIB2123-94-12 11:54:0056[facility] PsoajxpSBHLSTMKJV7994-83-41 11:54:0074.1[facility] UkozpgwFOTZAJHHPT6070-35-05 11:54:0014.9[facility] MCGUOEKDYK8531-87-55 11:54:009.2[facility] EvwdbovZZLWIEPPRM7278-30-86 11:54:001.1 [facility] YwmgogcXBUTWESYTN9537-11-15 11:54:000.7[facility]annHEMATOLOGY 2020-01-26 11:54:008.3[facility] KvlgukhZPQKMEQORW6175-10-35 11:54:001.7[facility] JyiwjluIYLVVHJIHM6224-77-06 11:54:001.0[facility] CewtupcYZDLSTKVNV3368-10-04 11:54:000.1[facility] XdihkzwCNZHUMHNNU8657-22-13 11:54:000.1[facility] CKMMPSBICX8556-31-54 11:54:001+ *ABN*(01/26/20 5:54 AM)[facility] 2020-01-26 11:54:0011.2[facility] AzlgzyxNNXJMSIXWP1711-45-85 11:54:002.36[facility] AbhblwvGRGDFISMNE4110-61-20 11:54:008.2[facility] IoelhvwSPQSSTIAQO3003-86-59 11:54:0024.4[facility] RhchmvvLTGQMPXNVQ1655-77-18 11:54:69921.5[facility] GBYXGMMKLA7380-45-22 11:54:00 Test Item Value Reference Range Interpretation Comments MCH (test code = MCH) 34.6 pg 27.0-31.0 [facility] JexptnoAWPXUNQEKG5491-55-40 11:54:0033.4[facility]annHEMATOLOGY 2020-01-26 11:54:0017.5[facility] MjwrcrcKXFQUJMWWQ8818-69-39 11:54:95948Pibodkbj HszbnxyNKMXALARQT5037-07-80 11:54:0010.9[facility] HermannCHEM FPRQX9501-03-96 10:15:66232Fypamgdl HermannCHEM WEQNK6257-80-49 10:15:0039[facility] HermannCHEM IHDLQ1144-01-13 10:15:001.11[facility] HermannCHEM BRADC9776-27-22 10:15:30229 [facility]annCHE[facility] MFFFD9999-72-77 10:15:004.7[facility] HermannCHEM PANEL 2020-01-25 10:15:86667Vjfyexjo HermannCHEM MYVZE1237-38-54 10:15:0025[facility] HermannCHEM EEGSB4826-93-46 10:15:009.2[facility] HermannCHEM JVVRN2935-92-47 10:15:0012.7[facility] HermannCHEM JSHTH7897-67-69 10:15:0054[facility] PBLGHOKBLQ6563-40-19 10:15:002.32[facility] AxfhugvUCLSHOWXIP5164-47-35 10:15:00 8.0[facility] CgdlvccXPLNBCQKEF9306-08-73 10:15:0024.0[facility]annHEMATOLOGY 2020-01-25 10:15:22151.4[facility] IbqdbjjIEOXQMOQKW9439-36-93 10:15:00 Test Item Value Reference Range Interpretation Comments MCH (test code = MCH) 34.3 pg 27.0-31.0 [facility] LdjdmxwORUMPAHAXT6467-97-41 10:15:0033.2[facility]annHEMATOLOGY 2020-01-25 10:15:0017.2[facility] CjhwbhfFKZRNJZSPD9648-45-65 10:15:50892Vimfvgrm MrwxmltSXOTQLOQMK6849-86-41 10:15:0011.1[facility] RxnumvrQLKUSKGEPT6358-62-75 10:15:0011.9[facility] AnxtqwlTDKUVCCQNX1427-72-10 10:15:0074.6[facility] XDKYLDGXSL6122-16-42 10:15:0016.5[facility] EyyftsjGBJNHUMCHG7283-83-14 10:15:00 7.7[facility] UsavtegIXIKGJOAHY6049-93-84 10:15:000.7[facility]annHEMATOLOGY 2020-01-25 10:15:000.5[facility] RlxmercIBAARWMLAU5902-41-08 10:15:008.9[facility] ZuhmijuVYZXZOXPOE0438-47-85 10:15:002.0[facility] MgthdbbOAEWFEQPWM5594-45-02 10:15:000.9[facility] CboqvpmTKHXWLELMH3958-14-11 10:15:000.1[facility] KWCYFBFFLF1522-82-81 10:15:000.1[facility] SbqqjwdXTWDOGQNZI7402-14-91 10:15:001+ *ABN*(01/25/20 4:15 AM)[facility] AfmpxskBJHTCRJRFQ7272-47-73 10:05:000.1[facility] HermannCHEM YWCER1715-69-72 09:55:002.3[facility] HermannCHEM RVOYU5874-58-40 16:37:003.0[facility] HermannCHEM FHPSK2446-29-54 16:37:001.8[facility] AJUWKWHBYA7161-11-15 16:37:00Normal (01/22/20 10:37 AM)[facility] HermannHEMATOLOGY 2020-01-22 16:37:00 Test Item Value Reference Range Interpretation Comments ACT (TEG) Rapid (test code = ACT (TEG) 128 s 86-118 Rapid) [facility]WwykoohFMYQEMMZRP8250-07-67 16:37:00 Test Item Value Reference Range Interpretation Comments Split Point Rapid (test code = Split 0.7 min Point Rapid) [facility] CampusMkrrpkoFYOYKBSYWG3216-57-56 16:37:00 Test Item Value Reference Range Interpretation Comments R-time Rapid (test code = R-time 0.8 min 0.4-0.7 Rapid) [facility] CampusVpaaijwHQBQVCTNXV1353-08-69 16:37:00 Test Item Value Reference Range Interpretation Comments K-time Rapid (test code = K-time 1.2 min 0.6-2.3 Rapid) [facility] CampusQogltrmZGVXFJEYBT0141-05-63 16:37:00 Test Item Value Reference Range Interpretation Comments Angle Rapid (test code = Angle 75 degrees 64-80 Rapid) [id number] 16:37:00 Test Item Value Reference Range Interpretation Comments Max Amplitude Rapid (test code = Max 69 mm 52-71 Amplitude Rapid) [facility] HospitalGlomjlnGWZFXKRPHC2395-71-64 16:37:0011.0[facility] 16:37:000.7[facility] [id number] 01:35:00 Negative (01/20/20 7:35 PM)[facility] [id number] 01:35:003.5 [facility] HospitalOdcyrjcBLUGSKYFLB8392-02-96 01:35:00 Test Item Value Reference Range Interpretation Comments PT (test code = PT) 14.6 s 12.0-14.7 [facility] HospitalPwvbhxcYCURZIJOGW2362-71-42 01:35:00 Test Item Value Reference Range Interpretation Comments INR (test code = INR) 1.13 1 0.85-1.17 [facility] HospitalSdlrpzdXAZLDUACUK2074-74-96 01:35:00 Test Item Value Reference Range Interpretation Comments PTT (test code = PTT) 25.3 s 22.9-35.8 [facility] HospitalRlmrrjzREJOMCRBOK0363-37-76 01:35:00 Test Item Value Reference Range Interpretation Comments ACT (TEG) Rapid (test code = ACT (TEG) 82 s 86-118 Rapid) [facility] HospitalNwczvwyRARGSSNTBS4128-99-28 01:35:00 Test Item Value Reference Range Interpretation Comments Split Point Rapid (test code = Split 0.2 min Point Rapid) [facility] HospitalSoutkueWRGCJVATHU8989-73-57 01:35:00 Test Item Value Reference Range Interpretation Comments R-time Rapid (test code = R-time 0.3 min 0.4-0.7 Rapid) [facility] HospitalLzbasxhIYKGDJLIEJ0054-09-10 01:35:00 Test Item Value Reference Range Interpretation Comments K-time Rapid (test code = K-time 1.2 min 0.6-2.3 Rapid) [facility] HospitalXbeqeweRBQIJFHSWB9259-11-98 01:35:00 Test Item Value Reference Range Interpretation Comments Angle Rapid (test code = Angle 77 degrees 64-80 Rapid) [facility] HospitalTkjetzfHXEGZHJELK7223-92-82 01:35:00 Test Item Value Reference Range Interpretation Comments Max Amplitude Rapid (test code = Max 62 mm 52-71 Amplitude Rapid) [facility] IvwskagTLBGHAWLWP4027-53-71 01:35:008.3[facility] 2020-[facility]-21 01:35:000.0[facility] WfyenfvWCVSUFKCGO5359-24-45 01:35:00<3[facility] DkvtdcqLIHJRCGTXN2648-91-22 01:35:00<0.003[facility]annPOCT-GLUCOSE METER 2018-12-27 13:28:00 Test Item Value Reference Range Interpretation Comments POC-GLUCOSE METER 153 mg/dL 70-110 H TESTED AT [facility] 67[address] (BEAKER) (test code = [place] 1538) [address] POCT-GLUCOSE [id number] 09:00:00 Test Item Value Reference Range Interpretation Comments POC-GLUCOSE METER 193 mg/dL 70-110 H TESTED AT [facility] [address] (BEAKER) (test code = [place] 1538) [address] [id number] 06:55:00 Test Item Value Reference Range Interpretation Comments MAGNESIUM (BEAKER) (test code = 1.5 mg/dL 1.6-2.6 L 627) BASIC METABOLIC [id number] 06:55:00 Test Item Value Reference Range Interpretation [...] PATIEN TS. CBC W/PLT COUNT & AUTO [id number] 06:25:00 Test Item Value Reference Range Interpretation [...] EOSINOPHILS ABSOLUTE COUNT 0.11 K/ L 0.04-0.36 ([facility]) (test code = 416) BASOPHILS ABSOLUTE COUNT ([facility]) 0.05 K/ L 0.01-0.08 (test code = 417) IMMATURE GRANULOCYTES-RELATIVE 1 % 0-1 PERCENT ([facility]) (test code = 2801) POCT-GLUCOSE [id number] 23:25:00 Test Item Value Reference Range Interpretation Comments POC-GLUCOSE METER 171 mg/dL 70-110 H TESTED AT [place] [address] ([facility]) (test code = RHETTPREETHI Coy [place] 1538) [address] POCT-GLUCOSE [id number] 18:08:00 Test Item Value Reference Range Interpretation Comments POC-GLUCOSE METER 138 mg/dL 70-110 H TESTED AT [place] [address] ([facility]) (test code = RHETTPREETHI Coy [facility] 1538) 338[address] POCT-GLUCOSE [id number] 13:05:00 Test Item Value Reference Range Interpretation Comments POC-GLUCOSE METER 140 mg/dL 70-110 H TESTED AT [place] [address] ([facility]) (test code = ALONDRA Coy [facility] 1538) 6[address] POCT-GLUCOSE [id number] 08:57:00 Test Item Value Reference Range Interpretation Comments POC-GLUCOSE METER 180 mg/dL 70-110 H TESTED AT [place] [address] ([facility]) (test code = RHETTPREETHI Coy [place] 1538) [address] POCT-GLUCOSE [id number] 21:30:00 Test Item Value Reference Range Interpretation Comments POC-GLUCOSE METER 212 mg/dL 70-110 H TESTED AT [place] [address] ([facility]) (test code = RHETTPREETHI Coy [place] 1538) 6[address] POCT-GLUCOSE [id number] 17:26:00 Test Item Value Reference Range Interpretation Comments POC-GLUCOSE METER 117 mg/dL 70-110 H TESTED AT [place] [address] ([facility]) (test code = [facility] [place] [facility]) [address] POCT-GLUCOSE [id number] 13:12:00 Test Item Value Reference Range Interpretation Comments POC-GLUCOSE METER 166 mg/dL 70-110 H TESTED AT [place] [address] ([facility]) (test code = ALONDRA Coy [place] 1538) 93170 URIC [id number] 13:02:00 Test Item Value Reference Range Interpretation Comments URIC ACID (BEAKER) (test code = 5.9 mg/dL 2.6-7.2 773) POCT-GLUCOSE [id number] 09:40:00 Test Item Value Reference Range Interpretation Comments POC-GLUCOSE METER 175 mg/dL 70-110 H TESTED AT [facility] 6720 (BEAKER) (test code = ALONDRA Coy [place] 1538) [address] POCT-GLUCOSE [id number] 08:10:00 Test Item Value Reference Range Interpretation Comments POC-GLUCOSE METER 175 mg/dL 70-110 H TESTED AT [facility] 6720 (BEAKER) (test code = ALONDRA Coy [place] 1538) [address] [id number] 05:15:00 Test Item Value Reference Range Interpretation Comments MAGNESIUM (BEAKER) (test code = 1.8 mg/dL 1.6-2.6 627) BASIC METABOLIC [id number] 05:15:00 Test Item Value Reference Range Interpretation [...] PATIEN TS. CBC W/PLT COUNT & AUTO [id number] 04:56:00 Test Item Value Reference Range Interpretation [...] PERCENT (BEAKER) (test code = 2801) POCT-GLUCOSE [id number] 21:26:00 Test Item Value Reference Range Interpretation Comments POC-GLUCOSE METER 162 mg/dL 70-110 H TESTED AT [place] [address] ([facility]) (test code = ALONDRA [place] 1538) 78[address] POCT-GLUCOSE [id number] 19:38:00 Test Item Value Reference Range Interpretation Comments POC-GLUCOSE METER 194 mg/dL 70-110 H TESTED AT [place] [address] ([facility]) (test code = ALONDRA [place] 1538) 0[address] POCT-GLUCOSE [id number] 13:05:00 Test Item Value Reference Range Interpretation Comments POC-GLUCOSE METER 177 mg/dL 70-110 H TESTED AT [place] [address] ([facility]) (test code = ALONDRA Coy [place] 1538) 43[address] POCT-GLUCOSE [id number] 08:48:00 Test Item Value Reference Range Interpretation Comments POC-GLUCOSE METER 140 mg/dL 70-110 H TESTED AT [place] [address] ([facility]) (test code = ALONDRA [place] 1538) 17957 POCT-GLUCOSE [id number] 21:57:00 Test Item Value Reference Range Interpretation Comments POC-GLUCOSE METER 160 mg/dL 70-110 H TESTED AT [place] [address] ([facility]) (test code = ALONDRA Coy [place] 1538) [address] POCT-GLUCOSE [id number] 17:35:00 Test Item Value Reference Range Interpretation Comments POC-GLUCOSE METER 107 mg/dL 70-110 TESTED AT [place] [address] ([facility]) (test code = ALONDRA Coy [place] 1538) 0[address] POCT-GLUCOSE [id number] 13:02:00 Test Item Value Reference Range Interpretation Comments POC-GLUCOSE METER 167 mg/dL 70-110 H TESTED AT [place] [address] ([facility]) (test code = ALONDRA Coy [place] 1538) 13593 POCT-GLUCOSE [id number] 08:39:00 Test Item Value Reference Range Interpretation Comments POC-GLUCOSE METER 172 mg/dL 70-110 H TESTED AT [place] [address] ([facility]) (test code = ALONDRA Coy [place] 1538) [address] [id number] 06:10:00 Test Item Value Reference Range Interpretation Comments MAGNESIUM ([facility]) (test code = 1.5 mg/dL 1.6-2.6 L 627) BASIC METABOLIC [id number] 06:10:00 Test Item Value Reference Range Interpretation [...] PATIEN TS. CBC W/PLT COUNT & AUTO [id number] 05:12:00 Test Item Value Reference Range Interpretation [...] PERCENT (BEAKER) (test code = 2801) POCT-GLUCOSE [id number] 22:03:00 Test Item Value Reference Range Interpretation Comments POC-GLUCOSE METER 208 mg/dL 70-110 H TESTED AT [place] [address] ([facility]) (test [facility] = [facility] 1538) [address] POCT-GLUCOSE [id number] 18:20:00 Test Item Value Reference Range Interpretation Comments POC-GLUCOSE METER 146 mg/dL 70-110 H TESTED AT [place] [address] ([facility]) (test code = [facility] 1538) [address] POCT-GLUCOSE [id number] 12:53:00 Test Item Value Reference Range Interpretation Comments POC-GLUCOSE METER 168 mg/dL 70-110 H TESTED AT [place] [address] ([facility]) (test code = [facility] 1538) 12030 POCT-GLUCOSE [id number] 09:31:00 Test Item Value Reference Range Interpretation Comments POC-GLUCOSE METER 192 mg/dL 70-110 H TESTED AT [facility] 6720 (BEAKER) (test code = ALONDRA [place] 1538) [address] [id number] 07:27:00 Test Item Value Reference Range Interpretation Comments MAGNESIUM (BEAKER) (test code = 1.6 mg/dL 1.6-2.6 627) BASIC METABOLIC [id number] 07:27:00 Test Item Value Reference Range Interpretation [...] PATIEN TS. CBC W/PLT COUNT & AUTO [id number] 06:06:00 Test Item Value Reference Range Interpretation [...] PERCENT (BEAKER) (test code = 2801) POCT-GLUCOSE [id number] 22:49:00 Test Item Value Reference Range Interpretation Comments POC-GLUCOSE METER 214 mg/dL 70-110 H TESTED AT [facility] 6720 [facility] (test [facility] = [facility] 1538) [address] POCT-GLUCOSE [id number] 22:48:00 Test Item Value Reference Range Interpretation Comments POC-GLUCOSE METER 247 mg/dL 70-110 H TESTED AT [facility] 6720 (BEAKER) (test code = [facility] Zbigniew [place] 1538) [address] POCT-GLUCOSE [id number] 17:37:00 Test Item Value Reference Range Interpretation Comments POC-GLUCOSE METER 185 mg/dL 70-110 H TESTED AT [facility] 6720 (BEAKER) (test code = ALONDRA [place] 1538) [address] [id number] 15:08:00 Test Item Value Reference Range Interpretation Comments MAGNESIUM (BEAKER) (test code = 1.7 mg/dL 1.6-2.6 627) BASIC METABOLIC [id number] 15:08:00 Test Item Value Reference Range Interpretation [...] CORPUSCULAR HEMOGLOBIN CONC 31.0 GM/DL 32.2-35.5 L ([facility]) (test code = 752) RED CELL DISTRIBUTION WIDTH 17.0 % 11.7-14.4 H ([facility]) (test code = 412) PLATELET COUNT ([facility]) (test 131 K/CU MM 150-450 L code = 756) MEAN PLATELET VOLUME ([facility]) 12.6 fL 9.4-12.3 H (test code = 754) NUCLEATED RED BLOOD CELLS 1 /100 WBC 0-0 H ([facility]) (test code = 413) POCT-GLUCOSE [id number] 12:49:00 Test Item Value Reference Range Interpretation Comments POC-GLUCOSE METER 182 mg/dL 70-110 H TESTED AT [place] [address] ([facility]) (test code = ALONDRA [place] 1538) 26784 POCT-GLUCOSE [id number] 08:49:00 Test Item Value Reference Range Interpretation Comments POC-GLUCOSE METER 111 mg/dL 70-110 H TESTED AT [place] [address] ([facility]) (test code = ALONDRA [place] 1538) 47300 POCT-GLUCOSE [id number] 22:38:00 Test Item Value Reference Range Interpretation Comments POC-GLUCOSE METER 225 mg/dL 70-110 H TESTED AT [place] [address] ([facility]) (test code = ALONDRA [place] 1538) 40490 POCT-GLUCOSE [id number] 17:12:00 Test Item Value Reference Range Interpretation Comments POC-GLUCOSE METER 194 mg/dL 70-110 H TESTED AT [place] [address] ([facility]) (test code = ALONDRA [place] 1538) 51754 POCT-GLUCOSE [id number] 14:19:00 Test Item Value Reference Range Interpretation Comments POC-GLUCOSE METER 179 mg/dL 70-110 H TESTED AT [place] [address] ([facility]) (test code = ALONDRA Coy [facility] 1538) 47719 RAD, CHEST, 1 VIEW, NON [id number] 12:01:00Reason for exam:->short of breathShould this be [...] aligned. Bones are osteopenic. Signed: Flor Shipman MDReport Verified Date/Time: 12/20/2018 12:01:09 Reading Location: [facility] Radiology Reading Room POCT-GLUCOSE METER 2018-12-20 10:07:00 Test Item Value Reference Range Interpretation Comments POC-GLUCOSE METER 169 mg/dL 70-110 H TESTED AT [facility] 6720 (BEAKER) (test code = ALONDRA [place] 1538) [address]45 [id number] 08:40:00 Test Item Value Reference Range Interpretation Comments MAGNESIUM (BEAKER) (test code = 1.5 mg/dL 1.6-2.6 L 627) BASIC METABOLIC [id number] 08:40:00 Test Item Value Reference Range Interpretation [...] CELL DISTRIBUTION WIDTH 17.1 % 11.7-14.4 H (BEAKER) (test code = 412) PLATELET COUNT (BEAKER) (test 110 K/CU MM 150-450 L code = 756) MEAN PLATELET VOLUME (BEAKER) 13.1 fL 9.4-12.3 H (test code = 754) NUCLEATED RED BLOOD CELLS 0 /100 WBC 0-0 (BEAKER) (test code = 413) POCT-GLUCOSE [id number] 22:11:00 Test Item Value Reference Range Interpretation Comments POC-GLUCOSE METER 207 mg/dL 70-110 H TESTED AT [place] [address] ([facility]) (test code = ALONDRA Coy [facility] 1538) 19389 POCT-GLUCOSE [id number] 17:51:00 Test Item Value Reference Range Interpretation Comments POC-GLUCOSE METER 197 mg/dL 70-110 H TESTED AT [place] [address] ([facility]) (test code = ALONDRA Coy [facility] 1538) 8[address]59 POCT-GLUCOSE [id number] 12:26:00 Test Item Value Reference Range Interpretation Comments POC-GLUCOSE METER 238 mg/dL 70-110 H TESTED AT [place] [address] ([facility]) (test code = ALONDRA Coy [facility] 1538) 53542 POCT-GLUCOSE [id number] 12:00:00 Test Item Value Reference Range Interpretation Comments POC-GLUCOSE METER 207 mg/dL 70-110 H TESTED AT [facility] 6720 (BEAKER) (test code = ALONDRA [place] 1538) 8[address] [id number] 07:04:00 Test Item Value Reference Range Interpretation Comments PHOSPHORUS (BEAKER) (test code = 2.9 mg/dL 2.3-4.7 604) [id number] 07:04:00 Test Item Value Reference Range Interpretation Comments MAGNESIUM (BEAKER) (test code = 1.8 mg/dL 1.6-2.6 627) BASIC METABOLIC [id number] 07:04:00 Test Item Value Reference Range Interpretation [...] 753) MEAN CORPUSCULAR HEMOGLOBIN 31.3 pg 25.6-32.2 ([facility]) (test code = 751) MEAN CORPUSCULAR HEMOGLOBIN CONC 31.8 GM/DL 32.2-35.5 L ([facility]) (test code = 752) RED CELL DISTRIBUTION WIDTH 17.4 % 11.7-14.4 H ([facility]) (test code = 412) PLATELET COUNT ([facility]) (test 107 K/CU MM 150-450 L code = 756) MEAN PLATELET VOLUME ([facility]) 12.3 fL 9.4-12.3 (test code = 754) NUCLEATED RED BLOOD CELLS 0 /100 WBC 0-0 ([facility]) (test code = 413) POCT-GLUCOSE [id number] 21:38:00 Test Item Value Reference Range Interpretation Comments POC-GLUCOSE METER 204 mg/dL 70-110 H TESTED AT [place] [address] ([facility]) (test code = ALONDRA Coy [place] 1538) 17364 POCT-GLUCOSE [id number] 12:18:00 Test Item Value Reference Range Interpretation Comments POC-GLUCOSE METER 158 mg/dL 70-110 H TESTED AT [place] [address] ([facility]) (test code = ALONDRA Coy [place] 1538) 83573 POCT-GLUCOSE [id number] 09:50:00 Test Item Value Reference Range Interpretation Comments POC-GLUCOSE METER 153 mg/dL 70-110 H TESTED AT [place] [address] ([facility]) (test code = ALONDRA Coy [place] 1538) [address]60 POCT-GLUCOSE [id number] 09:50:00 Test Item Value Reference Range Interpretation Comments POC-GLUCOSE METER 132 mg/dL 70-110 H TESTED AT [place] [address] ([facility]) (test code = ALONDRA Coy [place] 1538) [address]86 POCT-GLUCOSE [id number] 07:48:00 Test Item Value Reference Range Interpretation Comments POC-GLUCOSE METER 98 mg/dL 70-110 TESTED AT [place] [address] ([facility]) (test code = [place] [address] 1538) POCT-GLUCOSE [id number] 07:48:00 Test Item Value Reference Range Interpretation Comments POC-GLUCOSE METER 101 mg/dL 70-110 TESTED AT [facility] 6720 (BEAKER) (test code = ALONDRA [place] 1538) 85887 [id number] 05:44:00 Test Item Value Reference Range Interpretation Comments PHOSPHORUS (BEAKER) (test code = 3.7 mg/dL 2.3-4.7 604) [id number] 05:44:00 Test Item Value Reference Range Interpretation Comments MAGNESIUM (BEAKER) (test code = 2.4 mg/dL 1.6-2.6 627) BASIC METABOLIC [id number] 05:44:00 Test Item Value Reference Range Interpretation [...] S NOT APPLICABLE FOR DIALYSIS PATIEN TS. [id number] 05:26:00 Test Item Value Reference Range Interpretation [...] (BEAKER) (test code = 413) BLOOD GAS, [id number] 05:10:00 Test Item Value Reference Range Interpretation [...] 60.0 % RAD, CHEST, 1 VIEW, NON [id number] 04:43:00while patient is intubated or has chest [...] MDReport Verified Date/Time: 12/18/2018 04:43:02 Reading Location: [address] Reading Room BLOOD GAS, [id number] 02:48:00 Test Item Value Reference Range Interpretation [...] (BEAKER) (test code = 1819) 40.0 % [id number] 23:12:00 Test Item Value Reference Range Interpretation Comments MAGNESIUM (BEAKER) (test code = 2.4 mg/dL 1.6-2.6 627) Check Serum Magnesium level 2 hours after IV magnesium replacement.BLOOD GAS, [id number] 23:00:00 Test Item Value Reference Range Interpretation [...] 1819) 40.0 % LACTIC ACID, ARTERIAL, WHOLE [id number] 20:01:00 Test Item Value Reference Range Interpretation Comments LACTATE BLOOD ARTERIAL (2) 1.5 mmol/L 0.5-2.2 (BEAKER) (test code = 2874) [id number] 19:59:00 Test Item Value Reference Range Interpretation Comments MAGNESIUM (BEAKER) (test code = 1.7 mg/dL 1.6-2.6 627) SODIUM NA-STAT [id number] 19:40:00 Test Item Value Reference Range Interpretation Comments SODIUM (BEAKER) (test code = 381) 139 meq/L 135-148 POTASSIUM-STAT [id number] 19:40:00 Test Item Value Reference Range Interpretation Comments POTASSIUM (BEAKER) (test code = 4.2 meq/L 3.6-5.5 379) OXYGEN SATURATION, [id number] 19:40:00 Test Item Value Reference Range Interpretation Comments O2 SATURATION (MEASURED) (BEAKER) 61.6 % (test code = 1455) CALCIUM, [id number] 19:40:00 Test Item Value Reference Range Interpretation Comments CALCIUM IONIZED (BEAKER) (test 1.12 mmol/L 1.12-1.27 code = 698) PH, BLOOD (BEAKER) (test code = 7.48 1810) BLOOD GAS, [id number] 19:40:00 Test Item Value Reference Range Interpretation [...] (test code = 1819) 40.0 % GLUCOSE-STAT [id number] 19:40:00 Test Item Value Reference Range Interpretation Comments GLUCOSE RANDOM (BEAKER) (test code 136 mg/dL 70-110 H = 652) HGB/HCT (H&H) - STAT [id number] 19:40:00 Test Item Value Reference Range Interpretation Comments HEMOGLOBIN (BEAKER) (test code = 10.8 g/dL 12.0-15.0 L 410) HEMATOCRIT (BEAKER) (test code = 32.0 % 36.0-45.0 L 411) POCT-GLUCOSE [id number] 18:42:00 Test Item Value Reference Range Interpretation Comments POC-GLUCOSE METER 138 mg/dL 70-110 H TESTED AT [facility] 67 ([facility]) (test code = RHETTPREETHI [place] 1538) 6[address] POCT-GLUCOSE [id number] 17:37:00 Test Item Value Reference Range Interpretation Comments POC-GLUCOSE METER 147 mg/dL 70-110 H TESTED AT [facility] 6720 ([facility]) (test code = [facility] Zbigniew [facility] 1538) 104[address] CBC W/PLT COUNT & AUTO [id number] 16:05:00 Test Item Value Reference Range Interpretation [...] (BEAKER) (test code = 1+ few 961) [id number] 15:49:00 Test Item Value Reference Range Interpretation Comments ACTIVATED CLOTTING TIME 103 sec TEST ED AT [facility] 6720 (BEAKER) (test code = ALONDRA [place] 441) [address] [id number] 15:49:00 Test Item Value Reference Range Interpretation Comments ACTIVATED CLOTTING TIME 400 sec TEST ED AT [place] [address] ([facility]) (test code = ALONDRA [place] 441) [address] [id number] 15:49:00 Test Item Value Reference Range Interpretation Comments ACTIVATED CLOTTING TIME 373 sec TEST ED AT [place] [address] ([facility]) (test code = ALONDRA [place] 441) [address] [id number] 15:49:00 Test Item Value Reference Range Interpretation Comments ACTIVATED CLOTTING TIME 450 sec TEST ED AT [place] [address] ([facility]) (test code = ALONDRA [place] 441) [address] [id number] 15:49:00 Test Item Value Reference Range Interpretation Comments ACTIVATED CLOTTING TIME 389 sec TEST ED AT [place] [address] ([facility]) (test code = ALONDRA [place] 441) [address] [id number] 15:49:00 Test Item Value Reference Range Interpretation Comments ACTIVATED CLOTTING TIME 340 sec TEST ED AT [place] [address] ([facility]) (test code = ALONDRA Coy [place] 441) [address] POCT-GLUCOSE [id number] 15:27:00 Test Item Value Reference Range Interpretation Comments POC-GLUCOSE METER 131 mg/dL 70-110 H TESTED AT [place] [address] ([facility]) (test code = ALONDRA Coy [place] 1538) [address]271 LACTIC ACID, ARTERIAL, WHOLE [id number] 15:19:00 Test Item Value Reference Range Interpretation Comments LACTATE BLOOD ARTERIAL (2) 2.3 mmol/L 0.5-2.2 H ([facility]) (test code = 2874) [id number] 15:16:00 Test Item Value Reference Range Interpretation Comments MAGNESIUM ([facility]) (test code = 2.8 mg/dL 1.6-2.6 H 627) OXYGEN SATURATION, [id number] 14:57:00 Test Item Value Reference Range Interpretation Comments O2 SATURATION (MEASURED) ([facility]) 51.5 % (test code = 1455) SODIUM NA-STAT [id number] 14:56:00 Test Item Value Reference Range Interpretation Comments SODIUM (BEAKER) (test code = 381) 140 meq/L 135-148 POTASSIUM-STAT [id number] 14:56:00 Test Item Value Reference Range Interpretation Comments POTASSIUM (BEAKER) (test code = 3.9 meq/L 3.6-5.5 379) HGB/HCT (H&H) - STAT [id number] 14:56:00 Test Item Value Reference Range Interpretation Comments HEMOGLOBIN (BEAKER) (test code = 12.3 g/dL 12.0-15.0 410) HEMATOCRIT (BEAKER) (test code = 36.0 % 36.0-45.0 411) BLOOD GAS, [id number] 14:56:00 Test Item Value Reference Range Interpretation [...] (test code = 1819) 60.0 % GLUCOSE-STAT [id number] 14:56:00 Test Item Value Reference Range Interpretation Comments GLUCOSE RANDOM (BEAKER) (test code 141 mg/dL 70-110 H = 652) BLOOD GAS, [id number] 13:28:00 Test Item Value Reference Range Interpretation [...] 60.0 % RAD, CHEST, 1 VIEW, NON [id number] 12:53:00Reason for exam:->PostopFINAL REPORT Chest x-ray Clinical [...] Tyler Verified Date/Time: 12/17/2018 12:53:38 Reading Location: [facility] C0[facility] Consult Reading Room Electronically signed by: RISA TYLER M.D. on 12/17 12:53 PMPROTHROMBIN [id number] 12:37:00 Test Item Value Reference Range Interpretation Comments PROTIME (BEAKER) (test code = 17.4 seconds 11.7-14.7 H 759) INR (BEAKER) (test code = 370) 1.4 <=5.9 RECOMMENDED COUMADIN/WARFARIN INR THERAPY RANGESSTANDARD DOSE: 2.0 - 3.0 Includes: PROPHYLAXIS forvenous thrombosis, systemic embolization; TREATMENT for venous thrombosis and/or pulmonary embolus.HIGH RISK: Target INR is 2.5-3.5 for patients with mechanical heart valves.[id number] 12:37:00 Test Item Value Reference Range Interpretation Comments FIBRINOGEN LEVEL (BEAKER) (test 238 mg/dl 225-434 code = 658) [id number] 12:37:00 Test Item Value Reference Range Interpretation Comments PARTIAL THROMBOPLASTIN TIME 33.3 seconds 22.5-36.0 (BEAKER) (test code = 760) [id number] 12:37:00 Test Item Value Reference Range Interpretation Comments MAGNESIUM (BEAKER) (test code = 1.4 mg/dL 1.6-2.6 L 627) BASIC METABOLIC [id number] 12:37:00 Test Item Value Reference Range Interpretation [...] DIALYSIS PATIEN TS. LACTIC ACID, ARTERIAL, WHOLE [id number] 12:35:00 Test Item Value Reference Range Interpretation Comments LACTATE BLOOD ARTERIAL (2) 1.5 mmol/L 0.5-2.2 (BEAKER) (test code = 2874) CALCIUM, [id number] 12:32:00 Test Item Value Reference Range Interpretation Comments CALCIUM IONIZED (BEAKER) (test 1.19 mmol/L 1.12-1.27 code = 698) PH, BLOOD (BEAKER) (test code = 7.28 1810) OXYGEN SATURATION, [id number] 12:32:00 Test Item Value Reference Range Interpretation Comments O2 SATURATION (MEASURED) (BEAKER) 49.7 % (test code = 1455) BLOOD GAS, [id number] 12:31:00 Test Item Value Reference Range Interpretation [...] code = 1819) 60.0 % BLOOD GAS, [id number] 10:54:00 Test Item Value Reference Range Interpretation [...] (test code = 1819) 100.0 % GLUCOSE-STAT [id number] 10:54:00 Test Item Value Reference Range Interpretation Comments GLUCOSE RANDOM (BEAKER) (test code 193 mg/dL 70-110 H = 652) CALCIUM, [id number] 10:54:00 Test Item Value Reference Range Interpretation Comments CALCIUM IONIZED (BEAKER) (test 1.08 mmol/L 1.12-1.27 L code = 698) PH, BLOOD (BEAKER) (test code = 7.34 1810) SODIUM NA-STAT [id number] 10:53:00 Test Item Value Reference Range Interpretation Comments SODIUM (BEAKER) (test code = 381) 138 meq/L 135-148 POTASSIUM-STAT [id number] 10:53:00 Test Item Value Reference Range Interpretation Comments POTASSIUM (BEAKER) (test code = 4.4 meq/L 3.6-5.5 379) HGB/HCT (H&H) - STAT [id number] 10:53:00 Test Item Value Reference Range Interpretation Comments HEMOGLOBIN (BEAKER) (test code = 12.3 g/dL 12.0-15.0 410) HEMATOCRIT (BEAKER) (test code = 36.0 % 36.0-45.0 411) CALCIUM, [id number] 10:30:00 Test Item Value Reference Range Interpretation Comments CALCIUM IONIZED (BEAKER) (test 1.16 mmol/L 1.12-1.27 code = 698) PH, BLOOD (BEAKER) (test code = 7.34 1810) BLOOD GAS, [id number] 10:25:00 Test Item Value Reference Range Interpretation [...] (test code = 1819) 100.0 % GLUCOSE-STAT [id number] 10:25:00 Test Item Value Reference Range Interpretation Comments GLUCOSE RANDOM (BEAKER) (test code 223 mg/dL 70-110 H = 652) HGB/HCT (H&H) - STAT [id number] 10:25:00 Test Item Value Reference Range Interpretation Comments HEMOGLOBIN (BEAKER) (test code = 13.4 g/dL 12.0-15.0 410) HEMATOCRIT (BEAKER) (test code = 39.0 % 36.0-45.0 411) SODIUM NA-STAT [id number] 10:24:00 Test Item Value Reference Range Interpretation Comments SODIUM (BEAKER) (test code = 381) 136 meq/L 135-148 POTASSIUM-STAT [id number] 10:24:00 Test Item Value Reference Range Interpretation Comments POTASSIUM (BEAKER) (test code = 5.0 meq/L 3.6-5.5 379) POTASSIUM-STAT [id number] 09:51:00 Test Item Value Reference Range Interpretation Comments POTASSIUM (BEAKER) (test code = 6.4 meq/L 3.6-5.5 HH 379) BLOOD GAS, [id number] 09:45:00 Test Item Value Reference Range Interpretation [...] (test code = 1819) 70.0 % GLUCOSE-STAT [id number] 09:45:00 Test Item Value Reference Range Interpretation Comments GLUCOSE RANDOM (BEAKER) (test code 235 mg/dL 70-110 H = 652) HGB/HCT (H&H) - STAT [id number] 09:45:00 Test Item Value Reference Range Interpretation Comments HEMOGLOBIN (BEAKER) (test code = 9.0 g/dL 12.0-15.0 L 410) HEMATOCRIT (BEAKER) (test code = 26.0 % 36.0-45.0 L 411) SODIUM NA-STAT [id number] 09:45:00 Test Item Value Reference Range Interpretation Comments SODIUM (BEAKER) (test code = 381) 134 meq/L 135-148 L HGB/HCT (H&H) - STAT [id number] 09:23:00 Test Item Value Reference Range Interpretation Comments HEMOGLOBIN (BEAKER) (test code = 5.3 g/dL 12.0-15.0 LL 410) HEMATOCRIT (BEAKER) (test code = 16.0 % 36.0-45.0 L 411) SODIUM NA-STAT [id number] 09:16:00 Test Item Value Reference Range Interpretation Comments SODIUM (BEAKER) (test code = 381) 130 meq/L 135-148 L POTASSIUM-STAT [id number] 09:16:00 Test Item Value Reference Range Interpretation Comments POTASSIUM (BEAKER) (test code = 5.7 meq/L 3.6-5.5 H 379) BLOOD GAS, [id number] 09:15:00 Test Item Value Reference Range Interpretation [...] (test code = 1819) 65.0 % GLUCOSE-STAT [id number] 09:15:00 Test Item Value Reference Range Interpretation Comments GLUCOSE RANDOM (BEAKER) (test code 206 mg/dL 70-110 H = 652) BLOOD GAS, [id number] 08:17:00 Test Item Value Reference Range Interpretation [...] (test code = 1819) 100.0 % GLUCOSE-STAT [id number] 08:17:00 Test Item Value Reference Range Interpretation Comments GLUCOSE RANDOM (BEAKER) (test code 124 mg/dL 70-110 H = 652) HGB/HCT (H&H) - STAT [id number] 08:17:00 Test Item Value Reference Range Interpretation Comments HEMOGLOBIN (BEAKER) (test code = 10.0 g/dL 12.0-15.0 L 410) HEMATOCRIT (BEAKER) (test code = 29.0 % 36.0-45.0 L 411) CALCIUM, [id number] 08:17:00 Test Item Value Reference Range Interpretation Comments CALCIUM IONIZED (BEAKER) (test 1.10 mmol/L 1.12-1.27 L code = 698) PH, BLOOD (BEAKER) (test code = 7.47 1810) SODIUM NA-STAT [id number] 08:16:00 Test Item Value Reference Range Interpretation Comments SODIUM (BEAKER) (test code = 381) 138 meq/L 135-148 POTASSIUM-STAT [id number] 08:16:00 Test Item Value Reference Range Interpretation Comments POTASSIUM (BEAKER) (test code = 4.2 meq/L 3.6-5.5 379) [id number] 06:01:00 Test Item Value Reference Range Interpretation Comments MAGNESIUM (BEAKER) (test code = 1.5 mg/dL 1.6-2.6 L 627) BASIC METABOLIC [id number] 06:01:00 Test Item Value Reference Range Interpretation [...] S NOT APPLICABLE FOR DIALYSIS PATIEN TS. [id number] 05:50:00 Test Item Value Reference Range Interpretation Comments PARTIAL THROMBOPLASTIN TIME 81.2 seconds 22.5-36.0 H (BEAKER) (test code = 760) PROTHROMBIN [id number] 05:49:00 Test Item Value Reference Range Interpretation [...] CORPUSCULAR HEMOGLOBIN CONC 31.4 GM/DL 32.2-35.5 L ([facility]) (test code = 752) RED CELL DISTRIBUTION WIDTH 14.8 % 11.7-14.4 H ([facility]) (test code = 412) PLATELET COUNT ([facility]) (test 171 K/CU MM 150-450 code = 756) MEAN PLATELET VOLUME ([facility]) 12.5 fL 9.4-12.3 H (test code = 754) NUCLEATED RED BLOOD CELLS 0 /100 WBC 0-0 ([facility]) (test code = 413) POCT-GLUCOSE [id number] 21:31:00 Test Item Value Reference Range Interpretation Comments POC-GLUCOSE METER 123 mg/dL 70-110 H TESTED AT [place] [address] ([facility]) (test code = ALONDRA [place] 1538) [address] POCT-GLUCOSE [id number] 17:23:00 Test Item Value Reference Range Interpretation Comments POC-GLUCOSE METER 121 mg/dL 70-110 H TESTED AT [place] [address] ([facility]) (test code = [place]A [place] 1538) 267[address] POCT-GLUCOSE [id number] 12:37:00 Test Item Value Reference Range Interpretation Comments POC-GLUCOSE METER 167 mg/dL 70-110 H TESTED AT [place] [address] ([facility]) (test code = AL[place]DRA [place] 1538) 26[address] POCT-GLUCOSE [id number] 09:52:00 Test Item Value Reference Range Interpretation Comments POC-GLUCOSE METER 227 mg/dL 70-110 H TESTED AT [place] [address] ([facility]) (test code = AL[place]A [place] 1538) [address] [id number] 04:44:00 Test Item Value Reference Range Interpretation Comments PARTIAL THROMBOPLASTIN TIME 66.8 seconds 22.5-36.0 H ([facility]) (test code = 760) [id number] 04:42:00 Test Item Value Reference Range Interpretation Comments MAGNESIUM ([facility]) (test code = 1.7 mg/dL 1.6-2.6 627) BASIC METABOLIC [id number] 04:42:00 Test Item Value Reference Range Interpretation [...] WBC 0-0 (BEAKER) (test code = 413) [id number] 23:39:00 Test Item Value Reference Range Interpretation Comments PARTIAL THROMBOPLASTIN TIME 70.2 seconds 22.5-36.0 H (BEAKER) (test code = 760) POCT-GLUCOSE [id number] 21:47:00 Test Item Value Reference Range Interpretation Comments POC-GLUCOSE METER 145 mg/dL 70-110 H TESTED AT [place] [address] [facility] (test code = [facility] Zbigniew [facility] 1538) [address] POCT-GLUCOSE [id number] 18:36:00 Test Item Value Reference Range Interpretation Comments POC-GLUCOSE METER 143 mg/dL 70-110 H TESTED AT [place] [address] ([facility]) (test code = [facility] 1538) [address] [id number] 17:07:00 Test Item Value Reference Range Interpretation Comments PARTIAL THROMBOPLASTIN TIME 65.6 seconds 22.5-36.0 H (BEAKER) (test code = 760) [id number] 09:50:00 Test Item Value Reference Range Interpretation Comments PARTIAL THROMBOPLASTIN TIME 58.1 seconds 22.5-36.0 H (BEAKER) (test code = 760) POCT-GLUCOSE [id number] 09:08:00 Test Item Value Reference Range Interpretation Comments POC-GLUCOSE METER 164 mg/dL 70-110 H TESTED AT [place] [address] ([facility] (test code = [facility] 1538) [address] [id number] 04:08:00 Test Item Value Reference Range Interpretation Comments PARTIAL THROMBOPLASTIN TIME 79.3 seconds 22.5-36.0 H (BEAKER) (test code = 760) [id number] 04:05:00 Test Item Value Reference Range Interpretation Comments MAGNESIUM (BEAKER) (test code = 1.5 mg/dL 1.6-2.6 L 627) BASIC METABOLIC [id number] 04:05:00 Test Item Value Reference Range Interpretation [...] WBC 0-0 (BEAKER) (test code = 413) [id number] 21:53:00 Test Item Value Reference Range Interpretation Comments PARTIAL THROMBOPLASTIN TIME 112.2 seconds 22.5-36.0 H (BEAKER) (test code = 760) POCT-GLUCOSE [id number] 20:34:00 Test Item Value Reference Range Interpretation Comments POC-GLUCOSE METER 125 mg/dL 70-110 H TESTED AT [facility] 6720 ([facility]) (test code = AL[place]A [place] 1538) [address] OCCULT BLOOD, [id number] 14:49:00 Test Item Value Reference Range Interpretation Comments FECAL OCCULT BLOOD (BEAKER) (test Negative Negative code = 618) POCT-GLUCOSE [id number] 14:43:00 Test Item Value Reference Range Interpretation Comments POC-GLUCOSE METER 128 mg/dL 70-110 H TESTED AT [facility] 6720 ([facility]) (test code = AL[place]DRA Coy [place] 1538) [address] [id number] 14:43:00 Test Item Value Reference Range Interpretation Comments PARTIAL THROMBOPLASTIN TIME 104.0 seconds 22.5-36.0 H ([facility]) (test code = 760) C. DIFFICILE GDH [id number] 09:11:00 Test Item Value Reference Range Interpretation Comments CDT TOXIN (test code Negative Negative = [id number]) CDT GDH ANTIGEN Positive Negative A C. difficile present but (test code = toxin not detec dmitry. [id number]) Indicates colon ization with non-toxige sabrina strain [...] of kit performance was done by the [facility] Microbiology Lab prior to clinical use.[id number] 07:50:00 Test Item Value Reference Range Interpretation Comments MAGNESIUM (BEAKER) 1.8 mg/dL 1.6-2.6 Specimen slightly (test code = 627) hemolyzed BASIC METABOLIC [id number] 07:50:00 Test Item Value Reference Range Interpretation [...] NOT APPLICABLE FOR DIALYSIS PATIEN TS. POCT-GLUCOSE [id number] 07:49:00 Test Item Value Reference Range Interpretation Comments POC-GLUCOSE METER 131 mg/dL 70-110 H TESTED AT [facility] 6720 (BEAKER) (test code = AL[place]A [place] 1538) [address] [id number] 07:18:00 Test Item Value Reference Range Interpretation [...] CORPUSCULAR HEMOGLOBIN CONC 30.8 GM/DL 32.2-35.5 L ([facility]) (test code = 752) RED CELL DISTRIBUTION WIDTH 14.6 % 11.7-14.4 H ([facility]) (test code = 412) PLATELET COUNT ([facility]) (test 177 K/CU MM 150-450 code = 756) MEAN PLATELET VOLUME ([facility]) 12.7 fL 9.4-12.3 H (test code = 754) NUCLEATED RED BLOOD CELLS 0 /100 WBC 0-0 ([facility]) (test code = 413) [id number] 21:36:00 Test Item Value Reference Range Interpretation Comments PARTIAL THROMBOPLASTIN TIME 73.2 seconds 22.5-36.0 H ([facility]) (test code = 760) POCT-GLUCOSE [id number] 21:14:00 Test Item Value Reference Range Interpretation Comments POC-GLUCOSE METER 116 mg/dL 70-110 H TESTED AT [place] [address] ([facility]) (test code = AL[place]A [place] 1538) [address] POCT-GLUCOSE [id number] 18:13:00 Test Item Value Reference Range Interpretation Comments POC-GLUCOSE METER 150 mg/dL 70-110 H TESTED AT [place] [address] ([facility]) (test code = AL[place]A [place] 1538) [address] [id number] 14:26:00 Test Item Value Reference Range Interpretation Comments PARTIAL THROMBOPLASTIN TIME 87.5 seconds 22.5-36.0 H ([facility]) (test code = 760) POCT-GLUCOSE [id number] 12:54:00 Test Item Value Reference Range Interpretation Comments POC-GLUCOSE METER 140 mg/dL 70-110 H TESTED AT [place] [address] ([facility]) (test code = AL[place]A [place] 1538) [address] POCT-GLUCOSE [id number] 09:38:00 Test Item Value Reference Range Interpretation Comments POC-GLUCOSE METER 148 mg/dL 70-110 H TESTED AT [place] [address] ([facility]) (test code = AL[place]A [place] 1538) [address] [id number] 06:53:00 Test Item Value Reference Range Interpretation Comments MAGNESIUM ([facility]) (test code = 2.0 mg/dL 1.6-2.6 627) BASIC METABOLIC [id number] 06:53:00 Test Item Value Reference Range Interpretation [...] S NOT APPLICABLE FOR DIALYSIS PATIMELISSA DEVLIN [id number] 06:39:00 Test Item Value Reference Range Interpretation [...] CELL DISTRIBUTION WIDTH 14.5 % 11.7-14.4 H ([facility]) (test code = 412) PLATELET COUNT ([facility]) (test 190 K/CU MM 150-450 code = 756) MEAN PLATELET VOLUME ([facility]) 12.4 fL 9.4-12.3 H (test code = 754) NUCLEATED RED BLOOD CELLS 0 /100 WBC 0-0 ([facility]) (test code = 413) POCT-GLUCOSE [id number] 23:24:00 Test Item Value Reference Range Interpretation Comments POC-GLUCOSE METER 157 mg/dL 70-110 H TESTED AT [place] [address] ([facility]) (test code = AL[place] 1538) [address] POCT-GLUCOSE [id number] 18:13:00 Test Item Value Reference Range Interpretation Comments POC-GLUCOSE METER 135 mg/dL 70-110 H TESTED AT [place] [address] ([facility]) (test code = AL[place]A [place] 1538) [address] POCT-GLUCOSE [id number] 13:04:00 Test Item Value Reference Range Interpretation Comments POC-GLUCOSE METER 147 mg/dL 70-110 H TESTED AT [place] [address] ([facility]) (test code = AL[place]A [place] 1538) [address] [id number] 12:49:00 Test Item Value Reference Range Interpretation Comments PARTIAL THROMBOPLASTIN TIME 92.6 seconds 22.5-36.0 H ([facility]) (test code = 760) POCT-GLUCOSE [id number] 08:55:00 Test Item Value Reference Range Interpretation Comments POC-GLUCOSE METER 144 mg/dL 70-110 H TESTED AT [place] [address] ([facility]) (test code = AL[place] 1538) [address] [id number] 05:30:00 Test Item Value Reference Range Interpretation Comments PARTIAL THROMBOPLASTIN TIME 84.5 seconds 22.5-36.0 H ([facility]) (test code = 760) [id number] 02:15:00 Test Item Value Reference Range Interpretation Comments PARTIAL THROMBOPLASTIN TIME 160.4 seconds 22.5-36.0 HH ([facility]) (test code = 760) [id number] 01:51:00 Test Item Value Reference Range Interpretation Comments MAGNESIUM (BEAKER) (test code = 1.7 mg/dL 1.6-2.6 627) BASIC METABOLIC [id number] 01:51:00 Test Item Value Reference Range Interpretation [...] (BEAKER) (test code = 412) PLATELET COUNT ([facility]) (test 197 K/CU MM 150-450 code = 756) MEAN PLATELET VOLUME ([facility]) 12.0 fL 9.4-12.3 (test code = 754) NUCLEATED RED BLOOD CELLS 0 /100 WBC 0-0 ([facility]) (test code = 413) POCT-GLUCOSE [id number] 18:06:00 Test Item Value Reference Range Interpretation Comments POC-GLUCOSE METER 110 mg/dL 70-110 TESTED AT [place] [address] ([facility]) (test code = RHETTPREETHI Zbigniew [place] 1538) [address] [id number] 17:35:00 Test Item Value Reference Range Interpretation Comments PARTIAL THROMBOPLASTIN TIME 49.2 seconds 22.5-36.0 H ([facility]) (test code = 760) POCT-GLUCOSE [id number] 14:02:00 Test Item Value Reference Range Interpretation Comments POC-GLUCOSE METER 215 mg/dL 70-110 H TESTED AT [place] [address] ([facility]) (test code = RHETTPREETHI Coy [place] 1538) [address] [id number] 11:09:00 Test Item Value Reference Range Interpretation Comments PARTIAL THROMBOPLASTIN TIME 52.4 seconds 22.5-36.0 H ([facility]) (test code = 760) Prior to initiating heparinPOCT-GLUCOSE [id number] 08:34:00 Test Item Value Reference Range Interpretation Comments POC-GLUCOSE METER 121 mg/dL 70-110 H TESTED AT [place] [address] ([facility]) (test code = RHETTPREETHI Coy [place] 1538) [address] POCT-GLUCOSE [id number] 21:46:00 Test Item Value Reference Range Interpretation Comments POC-GLUCOSE METER 132 mg/dL 70-110 H TESTED AT [place] [address] ([facility]) (test code = ALONDRA Coy [place] 1538) 68[address] POCT-GLUCOSE [id number] 17:30:00 Test Item Value Reference Range Interpretation Comments POC-GLUCOSE METER 146 mg/dL 70-110 H TESTED AT [place] [address] ([facility]) (test code = RHETTPREETHI Coy [place] 1538) [address] POCT-GLUCOSE [id number] 13:44:00 Test Item Value Reference Range Interpretation Comments POC-GLUCOSE METER 124 mg/dL 70-110 H TESTED AT [facility] 6720 (BEAKER) (test code = AL[place]DRA [place] 1538) [address] POCT-GLUCOSE [id number] 09:03:00 Test Item Value Reference Range Interpretation Comments POC-GLUCOSE METER 136 mg/dL 70-110 H TESTED AT [facility] 6720 (BEAKER) (test code = AL[place]DRA [place] 1538) 0[address] CBC W/PLT COUNT & AUTO [id number] 07:24:00 Test Item Value Reference Range Interpretation Comments WHITE BLOOD CELL COUNT (BEAKER) 5.8 K/ L 3.5-10.5 (test code = 775) RED BLOOD CELL COUNT (BEAKER) 3.17 M/ L 3.93-5.22 L (test code [...] (BEAKER) (test code = 2801) BASIC METABOLIC [id number] 06:43:00 Test Item Value Reference Range Interpretation [...] S NOT APPLICABLE FOR DIALYSIS PATIEN TS. [id number] 06:43:00 Test Item Value Reference Range Interpretation Comments MAGNESIUM (BEAKER) (test code = 1.4 mg/dL 1.6-2.6 L 627) [id number] 06:36:00 Test Item Value Reference Range Interpretation Comments PARTIAL THROMBOPLASTIN TIME 70.2 seconds 22.5-36.0 H (BEAKER) (test code = 760) TROPONIN [id number] 00:58:00 Test Item Value Reference Range Interpretation [...] failure, acidosis, acute neurological disease, and persistent tachyarrhythmia.[id number] 00:23:00 Test Item Value Reference Range Interpretation Comments PARTIAL THROMBOPLASTIN TIME 46.8 seconds 22.5-36.0 H ([facility]) (test code = 760) Prior to initiating heparinPOCT-GLUCOSE [id number] 23:28:00 Test Item Value Reference Range Interpretation Comments POC-GLUCOSE METER 96 mg/dL 70-110 TESTED AT [facility] 67 ([facility]) (test code = [facility] [address] 1538) TROPONIN [id number] 18:41:00 Test Item Value Reference Range Interpretation Comments TROPONIN I ([facility]) (test code = 0.02 ng/mL [...] acidosis, acute neurological disease, and persistent tachyarrhythmia.POCT-GLUCOSE [id number] 17:53:00 Test Item Value Reference Range Interpretation Comments POC-GLUCOSE METER 132 mg/dL 70-110 H TESTED AT [facility] 67[address] ([facility] (test code = [facility] 1538) [address] POCT-GLUCOSE [id number] 14:30:00 Test Item Value Reference Range Interpretation Comments POC-GLUCOSE METER 179 mg/dL 70-110 H TESTED AT [facility] 6720 ([facility]) (test code = [facility] 1538) [address] TROPONIN [id number] 12:32:00 Test Item Value Reference Range Interpretation [...] failure, acidosis, acute neurological disease, and persistent tachyarrhythmia.[id number] 12:22:00 Test Item Value Reference Range Interpretation Comments MAGNESIUM (BEAKER) (test code = 1.1 mg/dL 1.6-2.6 L 627) BASIC METABOLIC [id number] 12:22:00 Test Item Value Reference Range Interpretation [...] NOT APPLICABLE FOR DIALYSIS PATIEN TS. POCT-GLUCOSE [id number] 08:39:00 Test Item Value Reference Range Interpretation Comments POC-GLUCOSE METER 121 mg/dL 70-110 H TESTED AT [facility] 6720 (BEAKER) (test code = RHETTPREETHI [place] 1538) 167[address] CBC W/PLT COUNT & AUTO [id number] 06:20:00 Test Item Value Reference Range Interpretation [...] PERCENT (BEAKER) (test code = 2801) POCT-GLUCOSE [id number] 23:04:00 Test Item Value Reference Range Interpretation Comments POC-GLUCOSE METER 106 mg/dL 70-110 TESTED AT [place] [address] ([facility]) (test code = ALONDRA Coy [facility] 1538) 97[address] POCT-GLUCOSE [id number] 19:31:00 Test Item Value Reference Range Interpretation Comments POC-GLUCOSE METER 142 mg/dL 70-110 H TESTED AT [place] [address] ([facility]) (test code = ALONDRA Coy [facility] 1538) 89164 POCT-GLUCOSE [id number] 12:27:00 Test Item Value Reference Range Interpretation Comments POC-GLUCOSE METER 101 mg/dL 70-110 TESTED AT [place] [address] ([facility]) (test [facility] = [facility] 1538) 8[address] POCT-GLUCOSE [id number] 09:34:00 Test Item Value Reference Range Interpretation Comments POC-GLUCOSE METER 126 mg/dL 70-110 H TESTED AT [place] [address] ([facility]) (test code = ALONDRA Coy [facility] 1538) 35145 POCT-GLUCOSE [id number] 07:54:00 Test Item Value Reference Range Interpretation Comments POC-GLUCOSE METER 101 mg/dL 70-110 TESTED AT [place] [address] ([facility]) (test code = [facility] Zbigniew [facility] 1538) [address] BASIC METABOLIC [id number] 05:55:00 Test Item Value Reference Range Interpretation [...] = 358) GLUCOSE RANDOM 85 mg/dL 70-105 ([facility] (test code = 652) CALCIUM (BEAKER) 9.3 mg/dL 8.4-10.2 (test code = 697) EGFR (BEAKER) (test 59 mL/min/1.73 ESTIMA DMITRY GFR IS code = 1092) sq m NOT ACCURATE CREATININE CLEARANCE IN PREDICTING GLOMERULAR FILTRATION RATE . ESTIMATED GFR I S NOT APPLICABLE FOR DIALYSIS PATIEN TS. CBC W/PLT COUNT & AUTO [id number] 05:06:00 Test Item Value Reference Range Interpretation [...] EOSINOPHILS ABSOLUTE COUNT 0.15 K/ L 0.04-0.36 ([facility]) (test code = 416) BASOPHILS ABSOLUTE COUNT ([facility]) 0.02 K/ L 0.01-0.08 (test code = 417) IMMATURE GRANULOCYTES-RELATIVE 1 % 0-1 PERCENT ([facility]) (test code = 2801) POCT-GLUCOSE [id number] 23:07:00 Test Item Value Reference Range Interpretation Comments POC-GLUCOSE METER 102 mg/dL 70-110 TESTED AT [place] [address] ([facility]) (test code = ALONDRA MAYKOR [facility] 1538) 75604 POCT-GLUCOSE [id number] 17:29:00 Test Item Value Reference Range Interpretation Comments POC-GLUCOSE METER 114 mg/dL 70-110 H TESTED AT [place] [address] ([facility]) (test code = ALONDRA MAYKOR [facility] 1538) 66405 POCT-GLUCOSE [id number] 12:02:00 Test Item Value Reference Range Interpretation Comments POC-GLUCOSE METER 146 mg/dL 70-110 H TESTED AT [place] [address] ([facility]) (test code = [facility] MAYKOR [facility] 1538) 264[address] POCT-GLUCOSE [id number] 08:14:00 Test Item Value Reference Range Interpretation Comments POC-GLUCOSE METER 101 mg/dL 70-110 TESTED AT [place] [address] ([facility]) (test code = [employer] MAYKOR [facility] 1538) 25943 POCT-GLUCOSE [id number] 23:17:00 Test Item Value Reference Range Interpretation Comments POC-GLUCOSE METER 112 mg/dL 70-110 H TESTED AT [place] [address] ([facility]) (test code = [employer] MAYKOR [facility] 1538) 39954 POCT-GLUCOSE [id number] 17:06:00 Test Item Value Reference Range Interpretation Comments POC-GLUCOSE METER 114 mg/dL 70-110 H TESTED AT [place] [address] ([facility]) (test code = [employer] [place] 1538) 35[address] POCT-GLUCOSE [id number] 13:08:00 Test Item Value Reference Range Interpretation Comments POC-GLUCOSE METER 110 mg/dL 70-110 TESTED AT [place] [address] ([facility]) (test code = [place] 1538) [address] POCT-GLUCOSE [id number] 08:26:00 Test Item Value Reference Range Interpretation Comments POC-GLUCOSE METER 151 mg/dL 70-110 H TESTED AT [place] [address] ([facility]) (test code = ALONDRA Coy [facility] 1538) 58[address] POCT-GLUCOSE [id number] 23:22:00 Test Item Value Reference Range Interpretation Comments POC-GLUCOSE METER 116 mg/dL 70-110 H TESTED AT [place] [address] ([facility]) (test code = ALONDRA Coy [facility] 1538) 25163 POCT-GLUCOSE [id number] 19:01:00 Test Item Value Reference Range Interpretation Comments POC-GLUCOSE METER 145 mg/dL 70-110 H TESTED AT [place] [address] ([facility]) (test code = ALONDRA Coy [facility] 1538) [id number] POCT-GLUCOSE [id number] 13:42:00 Test Item Value Reference Range Interpretation Comments POC-GLUCOSE METER 119 mg/dL 70-110 H TESTED AT [place] [address] ([facility]) (test code = ALONDRA Coy [facility] 1538) [id number] TISSUE [id number] 12:34:00Surgical Pathology Report Case: [id number] Authorizing Provider: Geo Farfan, Collected: 11/28/2018 0901 Ordering Location: [facility] Received: 11/28/2018 1029 PERIOPERATIVE SERVICES Pathologist: Reese Soares MD Specimen: Plaque, Right Carotid ARTERY, RIGHT CAROTID, ENDARTERECTOMY:CALCIFIC ATHEROSCLEROTIC PLAQUE Signing Pathologist Direct Phone Line: [phone]; [phone] stenosis Right carotid plaque Specimen is received in saline labeled with the patient's information and labeled "right carotid plaque" and consists of three irregular fragments of calcified azar-red tissue measuring 2.5 x 2 x 0.3 cm in aggregate. Park Worker sections are submitted in A1 for decalcification.CG/ew PERFORMEDPOCT-GLUCOSE [id number] 10:06:00 Test Item Value Reference Range Interpretation Comments POC-GLUCOSE METER 137 mg/dL 70-110 H TESTED AT [place] [address] ([facility]) (test code = ALONDRA Coy [facility] 8548) [address]703 C. DIFFICILE GDH [id number] 09:08:00 Test Item Value Reference Range Interpretation Comments CDT TOXIN (test code Negative Negative = [id number]) CDT GDH ANTIGEN Positive Negative A C. difficile present but (test code = toxin not detec dmitry. [id number]) Indicates colon ization with non-toxige sabrina strain or level of tox in below detectable leve ls. No need for enteri c isolation. Irving atment is rarely needed ( only when strong clinical suspicion for Clostridium difficile infection) Testing performed by [employer] Rapid [employer]ette Assay. For GDH, published sensitivity of the assay is 98.7% compared to cytotoxicity testing. For Toxin AB, published sensitivity is 87.8% and specificity 99.4% compared to cytotoxicity testing.Verification of kit performance was done by the [facility] Microbiology Lab prior to clinical use.BASIC METABOLIC [id number] 07:16:00 Test Item Value Reference Range Interpretation [...] (BEAKER) (test code = 412) PLATELET COUNT ([facility]) (test 289 K/CU MM 150-450 code = 756) MEAN PLATELET VOLUME (AKER) 11.2 fL 9.4-12.3 (test code = 754) NUCLEATED RED BLOOD CELLS 0 /100 WBC 0-0 ([facility]) (test code = 413) POCT-GLUCOSE [id number] 22:15:00 Test Item Value Reference Range Interpretation Comments POC-GLUCOSE METER 112 mg/dL 70-110 H TESTED AT [place] [address] ([facility]) (test code = ALONDRA Coy [facility] 1538) [id number] POCT-GLUCOSE [id number] 18:17:00 Test Item Value Reference Range Interpretation Comments POC-GLUCOSE METER 149 mg/dL 70-110 H TESTED AT [place] [address] ([facility]) (test code = ALONDRA Coy [facility] 1538) [id number] POCT-GLUCOSE [id number] 13:17:00 Test Item Value Reference Range Interpretation Comments POC-GLUCOSE METER 160 mg/dL 70-110 H TESTED AT [place] [address] ([facility]) (test code = ALONDRA Coy [place] 1538) [address] POCT-GLUCOSE [id number] 08:01:00 Test Item Value Reference Range Interpretation Comments POC-GLUCOSE METER 110 mg/dL 70-110 TESTED AT [place] [address] ([facility]) (test code = AOLNDRA Coy [facility] 1538) [address] [id number] 05:54:00 Test Item Value Reference Range Interpretation Comments MAGNESIUM (BEAKER) 1.9 mg/dL 1.6-2.6 Specimen slightly (test code = 627) hemolyzed BASIC METABOLIC [id number] 05:54:00 Test Item Value Reference Range Interpretation [...] (BEAKER) (test code = 412) PLATELET COUNT ([facility]) (test 299 K/CU MM 150-450 code = 756) MEAN PLATELET VOLUME (AKER) 11.5 fL 9.4-12.3 (test code = 754) NUCLEATED RED BLOOD CELLS 0 /100 WBC 0-0 ([facility]) (test code = 413) POCT-GLUCOSE [id number] 22:44:00 Test Item Value Reference Range Interpretation Comments POC-GLUCOSE METER 91 mg/dL 70-110 TESTED AT [place] [address] ([facility]) (test code = [facility] [address] 1538) POCT-GLUCOSE [id number] 17:10:00 Test Item Value Reference Range Interpretation Comments POC-GLUCOSE METER 151 mg/dL 70-110 H TESTED AT [place] [address] ([facility]) (test code = [facility] 1538) [address] POCT-GLUCOSE [id number] 12:46:00 Test Item Value Reference Range Interpretation Comments POC-GLUCOSE METER 166 mg/dL 70-110 H TESTED AT [place] [address] ([facility]) (test code = [facility] 1538) [id number] POCT-GLUCOSE [id number] 08:21:00 Test Item Value Reference Range Interpretation Comments POC-GLUCOSE METER 147 mg/dL 70-110 H TESTED AT [place] [address] ([facility]) (test code = [facility] 1538) [address] CBC (HEMOGRAM ONLY)2018-12-03 07:53:00 Test Item Value Reference Range Interpretation Comments WHITE BLOOD CELL COUNT (AKER) 6.1 K/ L 3.5-10.5 (test code = 775) RED BLOOD CELL COUNT (AKER) 3.30 M/ L 3.93-5.22 L (test code = 761) HEMOGLOBIN (BEAKER) (test code = 10.7 GM/DL 11.2-15.7 L 410) HEMATOCRIT (AKER) (test code = 33.6 % 34.1-44.9 L 411) MEAN CORPUSCULAR VOLUME ([facility]) 101.8 fL 79.4-94.8 H (test code = [...] WBC 0-0 (BEAKER) (test code = 413) [id number] 06:48:00 Test Item Value Reference Range Interpretation Comments MAGNESIUM (BEAKER) (test code = 1.5 mg/dL 1.6-2.6 L 627) BASIC METABOLIC [id number] 06:48:00 Test Item Value Reference Range Interpretation [...] NOT APPLICABLE FOR DIALYSIS PATIEN TS. POCT-GLUCOSE [id number] 23:20:00 Test Item Value Reference Range Interpretation Comments POC-GLUCOSE METER 125 mg/dL 70-110 H TESTED AT [facility] 6720 (BEAKER) (test code = ALONDRA [place] 1538) [address] POCT-GLUCOSE [id number] 17:33:00 Test Item Value Reference Range Interpretation Comments POC-GLUCOSE METER 136 mg/dL 70-110 H TESTED AT [facility] 6720 (BEAKER) (test code = ALONDRA Coy [place] 1538) [address] POCT-GLUCOSE [id number] 11:43:00 Test Item Value Reference Range Interpretation Comments POC-GLUCOSE METER 168 mg/dL 70-110 H TESTED AT [facility] 6720 (BEAKER) (test code = [facility] [place] 1538) [address] POCT-GLUCOSE [id number] 08:52:00 Test Item Value Reference Range Interpretation Comments POC-GLUCOSE METER 165 mg/dL 70-110 H TESTED AT [facility] 6720 (BEAKER) (test code = [facility] Zbigniew [facility] 1538) [address] [id number] 05:18:00 Test Item Value Reference Range Interpretation Comments MAGNESIUM (BEAKER) (test code = 1.8 mg/dL 1.6-2.6 627) BASIC METABOLIC [id number] 05:18:00 Test Item Value Reference Range Interpretation [...] (BEAKER) (test code = 412) PLATELET COUNT ([facility]) (test 206 K/CU MM 150-450 code = 756) MEAN PLATELET VOLUME (AKER) 11.8 fL 9.4-12.3 (test code = 754) NUCLEATED RED BLOOD CELLS 0 /100 WBC 0-0 ([facility]) (test code = 413) POCT-GLUCOSE [id number] 22:03:00 Test Item Value Reference Range Interpretation Comments POC-GLUCOSE METER 206 mg/dL 70-110 H TESTED AT [place] [address] ([facility]) (test code = ALONDRA [place] 1538) [address] POCT-GLUCOSE [id number] 21:51:00 Test Item Value Reference Range Interpretation Comments POC-GLUCOSE METER 185 mg/dL 70-110 H TESTED AT [place] [address] ([facility]) (test code = ALONDRA [place] 1538) [address] POCT-GLUCOSE [id number] 12:51:00 Test Item Value Reference Range Interpretation Comments POC-GLUCOSE METER 180 mg/dL 70-110 H TESTED AT [place] [address] ([facility]) (test code = ALONDRA [place] 1538) [address] POCT-GLUCOSE [id number] 09:51:00 Test Item Value Reference Range Interpretation Comments POC-GLUCOSE METER 171 mg/dL 70-110 H TESTED AT [place] [address] ([facility]) (test code = ALONDRA [place] 1538) [address] [id number] 06:42:00 Test Item Value Reference Range Interpretation Comments MAGNESIUM (BEAKER) (test code = 1.6 mg/dL 1.6-2.6 627) BASIC METABOLIC [id number] 06:42:00 Test Item Value Reference Range Interpretation [...] APPLICABLE FOR DIALYSIS PATIEN TS. HEPATIC FUNCTION [id number] 06:42:00 Test Item Value Reference Range Interpretation [...] 6-55 347) CBC W/PLT COUNT & AUTO [id number] 05:25:00 Test Item Value Reference Range Interpretation [...] PERCENT (BEAKER) (test code = 2801) POCT-GLUCOSE [id number] 21:31:00 Test Item Value Reference Range Interpretation Comments POC-GLUCOSE METER 143 mg/dL 70-110 H TESTED AT [place] [address] [facility] (test code = ALONDRA Coy [place] 1538) [address] POCT-GLUCOSE [id number] 18:26:00 Test Item Value Reference Range Interpretation Comments POC-GLUCOSE METER 252 mg/dL 70-110 H TESTED AT [place] [address] ([facility] (test code = ALONDRA Coy [place] 1538) [address] POCT-GLUCOSE [id number] 12:40:00 Test Item Value Reference Range Interpretation Comments POC-GLUCOSE METER 161 mg/dL 70-110 H TESTED AT [place] [address] ([facility] (test code = ALONDRA Coy [place] 1538) [address] HEMOGLOBIN [id number] 11:08:00 Test Item Value Reference Range Interpretation Comments HEMOGLOBIN A1C (BEAKER) (test code = 7.2 % 4.3-6.1 H 368) POCT-GLUCOSE [id number] 08:17:00 Test Item Value Reference Range Interpretation Comments POC-GLUCOSE METER 162 mg/dL 70-110 H TESTED AT [place] [address] ([facility] (test code = ALONDRA Coy [place] 1538) [address] POCT-GLUCOSE [id number] 07:48:00 Test Item Value Reference Range Interpretation Comments POC-GLUCOSE METER 158 mg/dL 70-110 H TESTED AT [place] [address] ([facility] (test code = ALONDRA Coy [place] 1538) [address] [id number] 06:55:00 Test Item Value Reference Range Interpretation Comments MAGNESIUM (BEAKER) (test code = 1.4 mg/dL 1.6-2.6 L 627) BASIC METABOLIC [id number] 06:55:00 Test Item Value Reference Range Interpretation [...] NOT APPLICABLE FOR DIALYSIS PATIEN TS. LIPID [id number] 06:55:00 Test Item Value Reference Range Interpretation [...] Very High >=190CBC W/PLT COUNT & AUTO [id number] 06:39:00 Test Item Value Reference Range Interpretation [...] PERCENT (BEAKER) (test code = 2801) POCT-GLUCOSE [id number] 21:50:00 Test Item Value Reference Range Interpretation Comments POC-GLUCOSE METER 185 mg/dL 70-110 H TESTED AT [facility] 6720 (BEAKER) (test code = ALONDRA [place] 1538) [address] POCT-GLUCOSE [id number] 17:26:00 Test Item Value Reference Range Interpretation Comments POC-GLUCOSE METER 201 mg/dL 70-110 H TESTED AT [facility] 6720 (BEAKER) (test code = ALONDRA [place] 1538) [address] POCT-GLUCOSE [id number] 15:25:00 Test Item Value Reference Range Interpretation Comments POC-GLUCOSE METER 136 mg/dL 70-110 H TESTED AT [facility] 6720 (BEAKER) (test code = ALONDRA Coy [place] 1538) [address] POCT-GLUCOSE [id number] 13:38:00 Test Item Value Reference Range Interpretation Comments POC-GLUCOSE METER 136 mg/dL 70-110 H TESTED AT [facility] 6720 (BEAKER) (test code = ALONDRA Coy [place] 1538) [address] POCT-GLUCOSE [id number] 11:05:00 Test Item Value Reference Range Interpretation Comments POC-GLUCOSE METER 183 mg/dL 70-110 H TESTED AT [facility] 6720 (BEAKER) (test code = ALONDRA Coy [place] 1538) [address] [id number] 04:18:00 Test Item Value Reference Range Interpretation Comments MAGNESIUM (BEAKER) (test code = 1.4 mg/dL 1.6-2.6 L 627) BASIC METABOLIC [id number] 04:18:00 Test Item Value Reference Range Interpretation [...] PATIEN TS. CBC W/PLT COUNT & AUTO [id number] 03:47:00 Test Item Value Reference Range Interpretation [...] (BEAKER) (test code = 2801) BASIC METABOLIC [id number] 17:45:00 Test Item Value Reference Range Interpretation [...] NOT APPLICABLE FOR DIALYSIS PATIEN TS. POCT-GLUCOSE [id number] 14:36:00 Test Item Value Reference Range Interpretation Comments POC-GLUCOSE METER 158 mg/dL 70-110 H TESTED AT [facility] 6720 (BEAKER) (test code = ALONDRA [place] 1538) [address] [id number] 10:50:00 Test Item Value Reference Range Interpretation Comments PHOSPHORUS (BEAKER) (test code = 3.1 mg/dL 2.3-4.7 604) [id number] 10:50:00 Test Item Value Reference Range Interpretation Comments MAGNESIUM (BEAKER) (test code = 1.4 mg/dL 1.6-2.6 L 627) BASIC METABOLIC [id number] 10:50:00 Test Item Value Reference Range Interpretation [...] DIALYSIS PATIEN TS. LACTIC ACID, ARTERIAL, WHOLE [id number] 10:47:00 Test Item Value Reference Range Interpretation Comments LACTATE BLOOD ARTERIAL (2) 0.7 mmol/L 0.5-2.2 (BEAKER) (test code = 2874) CALCIUM, [id number] 10:36:00 Test Item Value Reference Range Interpretation Comments CALCIUM IONIZED (BEAKER) (test 1.12 mmol/L 1.12-1.27 code = 698) PH, BLOOD (BEAKER) (test code = 7.41 1810) BLOOD GAS, [id number] 10:36:00 Test Item Value Reference Range Interpretation [...] (BEAKER) (test code = 1819) 32.0 % CBC W/PLT COUNT & AUTO [id number] 10:32:00 Test Item Value Reference Range Interpretation [...] (BEAKER) (test code = 2801) COMPREHENSIVE METABOLIC [id number] 07:28:00 Test Item Value Reference Range Interpretation [...] PATIEN TS. RAD, CHEST, 1 VIEW, NON [id number] 07:18:00Reason for exam:->CV pre- opShould this be performed at the bedside?->YesFINAL REPORT INDICATION: CV pre-op COMPARISON: None TECHNIQUE: Single frontalview of the chest. FINDINGS: Lungs and pleura: Clear lungs. No effusion.Heart and mediastinum: Normal heart size. Unremarkable mediastinal contours.Osseous structures: No acute abnormality.Other: None. IMPRESSION: No acute intrathoracic abnormality. Signed: JR Victro M, Juan Jose Skinner Verified Date/Time: 11/28/2018 07:18:00 [facility] APTT 2018-11-28 07:13:00 Test Item Value Reference Range Interpretation Comments PARTIAL THROMBOPLASTIN TIME 38.8 seconds 22.5-36.0 H (BEAKER) (test code = 760) PROTHROMBIN [id number] 07:12:00 Test Item Value Reference Range Interpretation [...] % 0-1 PERCENT (BEAKER) (test code = 6621)
[2021-08-03 19:05] LABS: Protime INR 1.21
[2021-08-03 19:09] LABS: Absolute Lymphocytes (CBC) 2.1 K/uL (0.7-4.9); Basophils % 0.8 % (0-1.3); MPV 10.1 fL (7.6-11.3)
[2021-08-03 19:24] LABS: Albumin 3.1 g/dL (3.4-5.0); Bilirubin Direct 0.1 mg/dL (0-0.2); Bilirubin Total 0.5 mg/dL (0.2-1.0); Magnesium 1.9 mg/dL (1.8-2.4); Protein, Total 7.7 g/dL (6.4-8.2); Troponin (Emerg Dept Use Only) 0.02 ng/mL (0.0-0.045)
--- NOTE | 2021-08-03 19:48 | RAD REPORT ---
EXAM DESCRIPTION: RAD - Chest Single View - 08/03/2021 7:25 pm CLINICAL HISTORY: DYSPNEA COMPARISON: Chest Single View dated 01/20/2020; Chest Single View dated 01/20/2020; Chest Single View dated 11/11/2018; Chest Pa And Lat (2 Views) dated 10/10/2018 FINDINGS: Lines: None. Lungs: Rounded masslike consolidation in the right upper lobe. Ill-defined opacities in the right jacquelin g base. Pleural: No significant pleural effusions or pneumothorax. Cardiac: Mild cardiomegaly. Sternotomy. Bones: No acute fractures. Other: IMPRESSION: Rounded consolidation in the right upper lobe could represent pneumonia, mass, or locula madison effusion given the history of chest tube. Chest CT could better evaluate.
--- NOTE | 2021-08-03 21:01 | RAD REPORT ---
EXAM DESCRIPTION: CT - Chest Abd Pelvis Wo Con - 08/03/2021 8:42 pm CLINICAL HISTORY: Chest and abdomen pain. mass in lung. Abdominal pain COMPARISON: Thorax Wo Con dated 01/20/2020 TECHNIQUE: Approximately 100 mL nonionic IV contrast was administered to the patient. All CT scans are performed using dose optimization technique as appropriate and may include automated exposure control or mA/KV adjustment according to patient size. FINDINGS: 8.1 cm mass along the right upper lung. There is a second pleural based mass with central low attenuation in the right lower lung measuring 2.7 cm. Emphysema is present.Coronary artery calcif ications. Cardiomegaly. Sternotomy. Possible low-density lesion in the right hepatic lobe. Cholelithiasis. 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 Atherosclerosis. No renal ureteral calculi identified. No bowel obstruction . Bladder is unremarkable. Hysterectomy No bowel obstruction, free air, free fluid or abscess. No worrisome osseous finding. Sternotomy. Multilevel degenerative changes are present in the spine. IMPRESSION: Two masses in the right lung, the larger measuring over 8 cm . This is suspicious for ne oplasm. There is a more indeterminate right lower lobe process with a broader differential. Could con cuff setter lockstitch PET-CT or percutaneous biopsy for further evaluation.
--- NOTE | 2021-08-03 21:43 | EDPHYS ---
Physician Documentation [facility] Name: Estefani Leiva Age: 81 yrs Sex: Female : 1940 Arrival Date: 08/03/2021 Time: 17:44 Bed 2 Private MD: JEANCARLOS BYERS ED Physician Margarito Barragan HPI: 08/03 20:00 This 81 yrs old Black Female presents to ER via Wheelchair with complaints of jr8 Vomiting/Diarrhea, Abdominal Pain. 20:00 Onset: The symptoms/episode began/occurred acutely, today. Possible causes: unknown. jr8 Severity of symptoms: At their worst the symptoms were moderate in the emergency department the symptoms are unchanged. The patient has not experienced similar symptoms in the past. The patient has not recently seen a physician. Historical: - Allergies: 17:59 PENICILLINS; tw2 - Home Meds: 17:59 Vesicare 5 mg Oral tab 1 tab once daily [Active]; Humulin 70/30 100 unit/mL (70-30) tw2 Sub-Q susp 32 units in am and 20 units at night [Active]; trazodone 50 mg Oral tab 1 tab q hs prn [Active]; Miralax 17 gram/dose Oral powd once daily [Active]; metformin 1,000 mg Oral tr24 1 tab twice a day [Active]; 18:02 lisinopril 30 mg oral tab 1 tab once daily [Active]; metoprolol tartrate 25 mg oral tab tw2 0.5 tab 2 times per day [Active]; solifenacin 5 mg oral tab 1 tab once daily [Active]; gabapentin 100 mg oral cap 1 cap 4 times a day [Active]; aspirin 81 mg Oral chew 1 tab once daily [Active]; - PMHx: 17:59 chronic diarrhea; Hyperlipidemia; Diabetes - NIDDM; CVA; right side weakness; tw2 Hypertension; - Immunization history:: Client reports receiving the 2nd dose of the Covid vaccine. - Social history:: Smoking status: Patient denies any tobacco usage or history of. ROS: 20:00 Eyes: Negative for injury, pain, redness, and discharge, ENT: Negative for injury, jr8 pain, and discharge, Neck: Negative for injury, pain, and swelling, Cardiovascular: Negative for chest pain, palpitations, and edema, Respiratory: Negative for shortness of breath, cough, wheezing, and pleuritic chest pain, Back: Negative for injury and pain, MS/Extremity: Negative for injury and deformity, Skin: Negative for injury, rash, and discoloration, Neuro: Negative for headache, weakness, numbness, tingling, and seizure. 20:00 Abdomen/GI: Positive for nausea, vomiting, and diarrhea, constipation, abdominal cramps. Exam: 20:00 Constitutional: This is a well developed, well nourished patient who is awake, alert, jr8 and in no acute distress. Cardiovascular: Bradycardic with a normal S1 and S2. No gallops, murmurs, or rubs. Normal PMI, no JVD. No pulse deficits. Respiratory: Lungs have equal breath sounds bilaterally, clear to auscultation and percussion. No rales, rhonchi or wheezes noted. No increased work of breathing, no retractions or nasal flaring. Back: No spinal tenderness. No costovertebral tenderness. Full range of motion. Skin: Warm, dry with normal turgor. Normal color with no rashes, no lesions, and no evidence of cellulitis. MS/ Extremity: Pulses equal, no cyanosis. Neurovascular intact. Full, normal range of motion. Neuro: Awake and alert, GCS 15, oriented to person, place, time, and situation. Cranial nerves II-XII grossly intact. Motor strength 5/5 in all extremities. Sensory grossly intact. 20:00 Abdomen/GI: Inspection: abdomen appears normal, Bowel sounds: active, all quadrants, Palpation: soft, in all quadrants, mild abdominal tenderness, in the right upper quadrant and left upper quadrant, mass, is not appreciated, rebound tenderness, is not appreciated, voluntary guarding, is not appreciated, involuntary guarding, is not appreciated, no appreciated organomegaly, Indicators: McBurney's point is not tender, Junior's sign is negative, Rovsing's sign is negative, Liver: tenderness, is not appreciated. Vital Signs: 18:01 BP 101 / 30; Pulse 39; Resp 18; Temp 97.9(TE); Pulse Ox 98% on R/A; Weight 83.91 kg (R);tw2 18:49 BP 132 / 33 LA (auto/lg); Pulse 41; Resp 18; Pulse Ox 100% on R/A; ap3 19:37 BP 127 / 40; Pulse 38; Resp 20; Temp 98.8(O); Pulse Ox 100% on R/A; Pain 0/10; kc4 21:18 BP 138 / 52; Pulse 60; Resp 20; Temp 98.8(O); Pulse Ox 100% on R/A; Pain 0/10; kc4 22:00 BP 136 / 50; Pulse 54; Resp 18; Temp 98.9; Pulse Ox 100% ; Pain 0/10; kc4 MDM: 18:38 Patient medically screened. jr8 21:06 Data reviewed: vital signs, nurses notes, lab test result(s), EKG, radiologic studies, jr8 CT scan, plain films. Data interpreted: Pulse oximetry: on room air is 100 %. Interpretation: normal. Counseling: I had a detailed discussion with the patient and/or guardian regarding: the historical points, exam findings, and any diagnostic results supporting the discharge/admit diagnosis, lab results, radiology results, the need for outpatient follow up, a billet driller, a plastics supervisor, to return to the emergency department if symptoms worsen or persist or if there are any questions or concerns that arise at home. 21:41 ED course: Discussed with patient and daughter that there is no surgical emergent jr8 findings in the abdomen. Has remained hemodynamically stable at this time and without pain. Also discussed with them the findings of the chest x-ray and further exploration with CT. There is concern for neoplasm and needs to follow-up with pulmonology. Gave referral to a plastics supervisor for further evaluation and possible biopsy. Patient and daughter understand and will follow up. Knows to come back if patient were to worsen at any point time.. 08/03 18:38 Order name: Basic Metabolic Panel; Complete Time: 20:01 08/03 18:38 Order name: CBC with Diff; Complete Time: 20:08/03 18:38 Order name: LFT's; Complete Time: 20:08/03 18:38 Order name: Magnesium; Complete Time: 20:08/03 18:38 Order name: NT PRO-BNP; Complete Time: 20:08/03 18:38 Order name: PT-INR; Complete Time: 20:08/03 18:38 Order name: Troponin (emerg Dept Use Only); Complete Time: 20:01 08/03 18:38 Order name: XRAY Chest (1 view); Complete Time: 20:01 08/03 18:38 Order name: EKG; Complete Time: 18:39 08/03 18:38 Order name: Cardiac monitoring; Complete Time: 18:44 08/03 18:38 Order name: EKG - Nurse/Tech; Complete Time: 18:43 08/03 18:38 Order name: IV Saline Lock; Complete Time: 18:43 08/03 18:38 Order name: Lipase; Complete Time: 20:01 08/03 20:02 Order name: CT Chest Abdomen Pelvis W/O Contrast; Complete Time: 21:05 08/03 18:38 Order name: Labs collected and sent; Complete Time: 18:43 08/03 18:38 Order name: O2 Per Protocol; Complete Time: 18:44 08/03 18:38 Order name: O2 Sat Monitoring; Complete Time: 18:44 Administered Medications: No medications were administered Disposition: 08/04 07:00 Co-signature as Attending Physician, Margarito Barragan MD I agree with the assessment and sp3 plan of care. Disposition Summary: 08/03/21 21:43 Discharge Ordered Location: Home [facility] Problem: new jr8 Symptoms: have improved jr8 Condition: Stable jr8 Diagnosis - Pulmonary Mass jr8 - Abdominal pain, Generalized jr8 Followup: jr8 - With: Felipe Simon MD - When: 2 - 3 days - Reason: Recheck today's complaints, Continuance of care, Re-evaluation by your physician Discharge Instructions: - Discharge Summary Sheet jr8 - Abdominal Pain, Adult jr8 - Lung Mass jr8 Forms: - Medication Reconciliation Form jr8 - Thank You Letter jr8 - Antibiotic Education jr8 - Prescription Opioid Use jr8 Signatures: Dispatcher [employer] EDMS Red Sifuentes PA PA jr8 Renea Ruff, RN RN tw2 Margarito Barragan MD MD sp3 Corrections: (The following items were deleted from the chart) 08/03 18:04 17:59 Home Meds: metoprolol tartrate 100 mg Oral tab 1 tab 2 times per day; tw2 tw2 18:04 17:59 Home Meds: metronidazole 500 mg Oral tab 1 tab once daily; 2 18: 17:59 Home Meds: lisinopril Oral; 2 18: 17:59 Home Meds: isosorbide dinitrate 30 mg Oral tab 1 tab daily; 18: 17:59 Home Meds: Furosemide Oral; 2 18: 17:59 Home Meds: carvedilol Oral; 18: 17:59 Home Meds: atorvastatin 40 mg Oral tab 1 tab once daily;
--- NOTE | 2021-08-03 21:43 | ER ---
Nurse's Notes [facility] Name: Estefani Leiva Age: 81 yrs Sex: Female : 1940 Arrival Date: 08/03/2021 Time: 17:44 Bed 2 Private MD: JEANCARLOS BYERS Diagnosis: Pulmonary Mass;Abdominal pain, Generalized Presentation: 08/03 17:56 Chief complaint: Patient's son or daughter states: she had been having constipation and tw2 she fights that off and on. then the other night i guess she had hemorrhoids and it bled just a little. she is complaining about her stomach and normally she eats good so i know when she dont eat good something is going. i did give her milk of magnesia this morning and normally we give prune juice too. she did throw up this morning. Coronavirus screen: At this time, the client does not indicate any symptoms associated with coronavirus-19. Ebola Screen: Patient denies travel to an Ebola-affected area in the 21 days before illness onset. 17:56 Method Of Arrival: Wheelchair tw2 18:04 Initial Sepsis Screen: Does the patient meet any 2 criteria? No. Patient's initial tw2 sepsis screen is negative. Does the patient have a suspected source of infection? No. Patient's initial sepsis screen is negative. Risk Assessment: Do you want to hurt yourself or someone else? Patient reports no desire to harm self or others. Onset of symptoms was August 03, 2021. 18:04 Acuity: LEORA 2 tw2 Triage Assessment: 18:00 General: Appears in no apparent distress. uncomfortable, Behavior is calm, cooperative, tw2 appropriate for age. Pain: Complains of pain in abdomen. GI: Reports constipation, Parent/caregiver reports the patient having constipation, nausea, vomiting. 21:19 General: Appears in no apparent distress. uncomfortable, Behavior is calm, appropriate kc4 for age. Pain: Complains of pain in abdomen Alleviated by. Neuro: Respiratory: No deficits noted. GI: Reports lower abdominal pain, constipation, cramping, Parent/caregiver reports the patient having constipation, nausea, vomiting, pt had large soft brown bowel movement. Historical: - Allergies: 17:59 PENICILLINS; tw2 - Home Meds: 17:59 Vesicare 5 mg Oral tab 1 tab once daily [Active]; Humulin 70/30 100 unit/mL (70-30) tw2 Sub-Q susp 32 units in am and 20 units at night [Active]; trazodone 50 mg Oral tab 1 tab q hs prn [Active]; Miralax 17 gram/dose Oral powd once daily [Active]; metformin 1,000 mg Oral tr24 1 tab twice a day [Active]; 18:02 lisinopril 30 mg oral tab 1 tab once daily [Active]; metoprolol tartrate 25 mg oral tab tw2 0.5 tab 2 times per day [Active]; solifenacin 5 mg oral tab 1 tab once daily [Active]; gabapentin 100 mg oral cap 1 cap 4 times a day [Active]; aspirin 81 mg Oral chew 1 tab once daily [Active]; - PMHx: 17:59 chronic diarrhea; Hyperlipidemia; Diabetes - NIDDM; CVA; right side weakness; tw2 Hypertension; - Immunization history:: Client reports receiving the 2nd dose of the Covid vaccine. - Social history:: Smoking status: Patient denies any tobacco usage or history of. Screenin:49 Abuse screen: Denies threats or abuse. Nutritional screening: No deficits noted. ap3 Tuberculosis screening: No symptoms or risk factors identified. Fall Risk No fall in past 12 months (0 pts). Secondary diagnosis (15 points) CVA, IV access (20 points). Ambulatory Aid- None/Bed Rest/Nurse Assist (0 pts). Gait- Normal/Bed Rest/Wheelchair (0 pts) Mental Status- Oriented to own ability (0 pts). Total Merritt Fall Scale indicates Low Risk Score (25-44 pts). Fall prevention measures have been instituted. Side Rails Up X 2 Placed close to Nursing Station Frequent Obs/Assesments occuring Family Present and informed to notify staff if they need to leave bedside As available Patient and Family Educated on Fall Prevention Program and strategies. Assessment: 18:47 General: Appears in no apparent distress. comfortable, Behavior is calm, cooperative, ap3 appropriate for age, Reports feeling ill for > 3 days. Pain: Complains of pain in abdomen Pain does not radiate. Pain began 30 min ago. started over the weekend Is intermittent. Neuro: Level of Consciousness is awake, alert, obeys commands, Oriented to person, place, time, Cooler Tender are equal bilaterally Speech is normal. Cardiovascular: Denies chest pain, lightheadedness, shortness of breath, Rhythm is sinus bradycardia. Respiratory: Airway is patent Respiratory effort is even, unlabored, Respiratory pattern is regular, symmetrical. GI: Abdomen is round Bowel sounds present X 4 quads. Abdomen is tender to palpation in abdomen diffusely. : No signs and/or symptoms were reported regarding the genitourinary system. Vital Signs: 18:01 BP 101 / 30; Pulse 39; Resp 18; Temp 97.9(TE); Pulse Ox 98% on R/A; Weight 83.91 kg (R);tw2 18:49 BP 132 / 33 LA (auto/lg); Pulse 41; Resp 18; Pulse Ox 100% on R/A; ap3 19:37 BP 127 / 40; Pulse 38; Resp 20; Temp 98.8(O); Pulse Ox 100% on R/A; Pain 0/10; kc4 21:18 BP 138 / 52; Pulse 60; Resp 20; Temp 98.8(O); Pulse Ox 100% on R/A; Pain 0/10; kc4 22:00 BP 136 / 50; Pulse 54; Resp 18; Temp 98.9; Pulse Ox 100% ; Pain 0/10; kc4 ED Course: 17:44 Patient arrived in ED. am2 17:44 JEANCARLOS BYERS is Private Physician. am2 17:59 Arm band placed on. tw2 18:04 Triage completed. tw2 18:35 Inserted saline lock: 20 gauge in right antecubital area, using aseptic technique. ap3 Blood collected. 18:38 Red Sifuentes PA is PHCP. jr8 18:38 Margarito Barragan MD is Attending Physician. jr8 18:49 Patient has correct armband on for positive identification. Bed in low position. Call ap3 light in reach. Side rails up X2. Adult w/ patient. pole sander operator on. Pulse ox on. NIBP on. Door closed. Noise minimized. 18:57 Pt visited by daughter. ap3 19:25 XRAY Chest (1 view) In Process Unspecified. EDMS 19:35 Aggie Elizondo is Primary Nurse. kc4 20:42 CT Chest Abdomen Pelvis W/O Contrast In Process Unspecified. EDMS 21:42 Felipe Simon MD is Referral Physician. jr8 22:32 No provider procedures requiring assistance completed. IV discontinued, intact, kc4 bleeding controlled, No redness/swelling at site. Pressure dressing applied. Administered Medications: No medications were administered Outcome: 21:23 Condition: improved kc4 21:43 Discharge ordered by . jr8 22:32 Discharged to home via wheelchair, with family, with friend. kc4 22:32 Condition: stable kc4 22:32 Discharge instructions given to patient, family, Instructed on discharge instructions, follow up and referral plans. Demonstrated understanding of instructions, follow-up care, medications. 22:34 Patient left the ED. kc4 Signatures: Dispatcher [employer] EDMS Red Sifuentes PA PA jr8 Renea Ruff RN RN tw2 Christina Peraza am2 Christina Friedman RN RN ap3 Aggie Elizondo kc4 Corrections: (The following items were deleted from the chart) 18:04 17:59 Home Meds: metoprolol tartrate 100 mg Oral tab 1 tab 2 times per day; tw2 2 18:04 17:59 Home Meds: metronidazole 500 mg Oral tab 1 tab once daily; tw2 2 18:04 17:59 Home Meds: lisinopril Oral; tw2 2 18:04 17:59 Home Meds: isosorbide dinitrate 30 mg Oral tab 1 tab daily; tw2 tw2 18:04 17:59 Home Meds: Furosemide Oral; tw2 2 18:04 17:59 Home Meds: carvedilol Oral; tw2 2 18:04 17:59 Home Meds: atorvastatin 40 mg Oral tab 1 tab once daily; 2 tw2
[2021-08-03 22:50] VITALS: O2SAT 100
[2021-08-03 22:54] VITALS: BP 136/50; TEMP 98.9
== END 2021-08-03 22:34 | disposition home or self-care (01) ==
LOC: ER 17:41
DX: R91.8 Other nonspecific abnormal finding of lung field (principal); R10.9 Unspecified abdominal pain; Z88.0 Allergy status to penicillin; E78.5 Hyperlipidemia, unspecified; E11.9 Type 2 diabetes mellitus without complications; I10 Essential (primary) hypertension; Z86.73 Personal history of transient ischemic attack (TIA), and cerebral infarction without residual deficits; I67.9 Cerebrovascular disease, unspecified; G81.91 Hemiplegia, unspecified affecting right dominant side
CPT/HCPCS: 36415; 71045; 71250; 74176; 80048; 80076; 83690; 83735; 83880; 84484; 85025; 85610; 93005; 99284

== ENCOUNTER 2021-10-06 13:55 | Inpatient (IN) | payer OTHER ==
[2021-10-06 15:26] LABS: Absolute Lymphocytes (CBC) 1.4 K/uL (0.7-4.9); Basophils % 0.7 % (0-1.3); Hematocrit 38.4 % (36.0-45.0); Lymphocytes % 21.3 % (15.3-44.8); MPV 10.3 fL (7.6-11.3); RBC Red Blood Cell Count 3.86 M/uL (3.86-4.86)
[2021-10-06] MEDS ORDERED: NA CHLORIDE 0.9% 1,000 ML ONE (15:26)
[2021-10-06 16:12] LABS: Urine Blood Trace-intact (Negative); Urine Glucose Negative (Negative); Urine Protein 1+ (Negative); Urine Specific Gravity 1.015 (1.005-1.030)
[2021-10-06 16:14] LABS: Protime INR 1.19
--- NOTE | 2021-10-06 16:23 | RAD REPORT ---
EXAM DESCRIPTION: RAD - Chest Single View - 10/06/2021 3:14 pm CLINICAL HISTORY: CONGESTION COMPARISON: CT chest August 03, portable chest August 03 TECHNIQUE: AP portable chest image was obtained 10/06/2021 3:14 pm . FINDINGS: Chronic interstitial lung disease is present in both lung martinez. Focally more prominent l savi parenchymal opacification in the right base believed to be part of the posterior right base mass detailed on the August 03 CT chest study. A larger 8 centimeter mass in the lateral upper right jacquelin g field again noted. These masses are not clearly different from prior imaging. No significant failur e or volume overload. Sternotomy wires are in place. Heart and vasculature are normal. No measurable pleural effusion and n o pneumothorax. No acute bony abnormality seen. No acute aortic findings suspected. IMPRESSION: Two right-side chest masses are present superimposed on chronic fibrotic lung change. No acute chest finding seen. No significant change from the July imaging.
[2021-10-06 16:29] LABS: Albumin 3.3 g/dL (3.4-5.0); Bilirubin Direct 0.2 mg/dL (0-0.2); Bilirubin Total 0.8 mg/dL (0.2-1.0); Magnesium 2.2 mg/dL (1.8-2.4); Potassium 4.9 mmol/L (3.5-5.1); Protein, Total 8.3 g/dL (6.4-8.2); Troponin (Emerg Dept Use Only) 0.04 ng/mL (0.0-0.045)
[2021-10-06 17:51] LABS: Urine Amorphous Sediment 4+ /HPF (NONE SEEN); Urine Bacteria 20-50 /HPF (<20); Urine RBC <5 /HPF (NONE SEEN)
[2021-10-06] MEDS ORDERED: CEFTRIAXONE 1,000 MG in NA CHLORIDE 0.9% 50 ML IVPB ONE (18:00)
[2021-10-06] MEDS ORDERED: LORazepam 2 MG/ML VIAL ONE (18:01)
--- NOTE | 2021-10-06 18:01 | EDPHYS ---
Physician Documentation [facility] Name: Estefani Leiva Age: 81 yrs Sex: Female : 1940 Arrival Date: 10/06/2021 Time: 14:03 Bed 19 Private MD: ED Physician Marcela Sanders HPI: 10/06 14:40 This 81 yrs old Black Female presents to ER via EMS with complaints of General ma2 Weakness, Decreased Appetite. 14:40 Onset: The symptoms/episode began/occurred gradually, 5 day(s) ago. Severity of ma2 symptoms: At their worst the symptoms were mild in the emergency department the symptoms are unchanged. The patient has experienced a previous episode. Historical: - Allergies: 14:09 PENICILLINS; ss - Home Meds: 18:33 gabapentin 100 mg Oral cap 1 cap 4 times a day [Active]; lisinopril 30 mg Oral tab 1 ss tab once daily [Active]; metoprolol tartrate 25 mg Oral tab 0.5 tab 2 times per day [Active]; solifenacin 5 mg Oral tab 1 tab once daily [Active]; - PMHx: 14:09 chronic diarrhea; CVA; right side weakness; Diabetes - NIDDM; Hyperlipidemia; ss Hypertension; - Immunization history:: Client reports receiving the 2nd dose of the Covid vaccine. - Social history:: Smoking status: Patient denies any tobacco usage or history of. Patient/guardian denies using alcohol, street drugs, The patient lives with family. - Family history:: not pertinent. ROS: 14:40 Constitutional: Negative for fever, chills, and weight loss. ma2 14:40 All other systems are negative. Exam: 14:40 Constitutional: This is a well developed, well nourished patient who is awake, alert, ma2 and in no acute distress. Head/Face: Normocephalic, atraumatic. Eyes: Pupils equal round and reactive to light, extra-ocular motions intact. Lids and lashes normal. Conjunctiva and sclera are non-icteric and not injected. Cornea within normal limits. Periorbital areas with no swelling, redness, or edema. ENT: Nares patent. No nasal discharge, no septal abnormalities noted. Tympanic membranes are normal and external auditory canals are clear. Oropharynx with no redness, swelling, or masses, exudates, or evidence of obstruction, uvula midline. Mucous membranes moist. Neck: Trachea midline, no thyromegaly or masses palpated, and no cervical lymphadenopathy. Supple, full range of motion without nuchal rigidity, or vertebral point tenderness. No Meningismus. Chest/axilla: Normal chest wall appearance and motion. Nontender with no deformity. No lesions are appreciated. Cardiovascular: Regular rate and rhythm with a normal S1 and S2. No gallops, murmurs, or rubs. Normal PMI, no JVD. No pulse deficits. Respiratory: Lungs have equal breath sounds bilaterally, clear to auscultation and percussion. No rales, rhonchi or wheezes noted. No increased work of breathing, no retractions or nasal flaring. Abdomen/GI: Soft, non-tender, with normal bowel sounds. No distension or tympany. No guarding or rebound. No evidence of tenderness throughout. Back: No spinal tenderness. No costovertebral tenderness. Full range of motion. Skin: Warm, dry with normal turgor. Normal color with no rashes, no lesions, and no evidence of cellulitis. MS/ Extremity: Pulses equal, no cyanosis. Neurovascular intact. Full, normal range of motion. Neuro: Awake and alert, GCS 15, oriented to person, place, time, and situation. Cranial nerves II-XII grossly intact. Motor strength 5/5 in all extremities. Sensory grossly intact. Cerebellar exam normal. Normal gait. Psych: Awake, alert, with orientation to person, place and time. Behavior, mood, and affect are within normal limits. Vital Signs: 14:05 BP 172 / 68; Pulse 50; Resp 16; Temp 98.3(TE); Pulse Ox 98% on R/A; Weight 82.55 kg; ss Height 5 ft. 5 in. (165.10 cm); Pain 0/10; 15:30 BP 91 / 78; Pulse 50; Resp 18; Pulse Ox 97% on R/A; sl2 16:30 BP 160 / 67; Pulse 54; Resp 20; Temp 98.4; Pulse Ox 96% on R/A; sl2 16:30 BP 194 / 67; Pulse 59; Resp 18; Pulse Ox 94% on R/A; sl2 17:25 BP 227 / 83; Pulse 59; Pulse Ox 96% on R/A; Pain 0/10; ss 17:45 BP 238 / 125; Pulse 54; Resp 18; Pulse Ox 99% on R/A; sl2 18:30 BP 175 / 76; Pulse 77; Pulse Ox 97% on R/A; sl2 19:00 BP 154 / 80; Pulse 72; Resp 18; Pulse Ox 97% on R/A; sl2 20:30 BP 154 / 80; Pulse 81; Resp 20; Temp 98.4; Pulse Ox 97% on R/A; sl2 14:05 Body Mass Index 30.29 (82.55 kg, 165.10 cm) ss MDM: 14:10 Patient medically screened. [facility] 14:40 Differential Diagnosis altered mental status, flu, dehydration. [facility] 17:59 Data reviewed: vital signs, nurses notes. Counseling: I had a detailed discussion with [facility] the patient and/or guardian regarding: the historical points, exam findings, and any diagnostic results supporting the discharge/admit diagnosis, the presence of at least one elevated blood pressure reading (>120/80) during this emergency department visit, the need for further work-up and treatment in the hospital. Response to treatment: the patient's symptoms have markedly improved after treatment. 10/06 14:12 Order name: Basic Metabolic Panel [facility] 10/06 14:12 Order name: CBC with Diff [facility] 10/06 14:12 Order name: LFT's [facility] 10/06 14:12 Order name: Magnesium; Complete Time: 16:38 [facility] 10/06 14:12 Order name: NT PRO-BNP; Complete Time: 16:38 [facility] 10/06 14:12 Order name: PT-INR; Complete Time: 16:38 [facility] 10/06 14:12 Order name: Troponin (emerg Dept Use Only); Complete Time: 16:38 [facility] 10/06 14:13 Order name: Basic Metabolic Panel; Complete Time: 16:38 [facility] 10/06 14:13 Order name: CBC with Automated Diff; Complete Time: 15:29 [facility] 10/06 14:13 Order name: Liver (Hepatic) Function; Complete Time: 16:38 [facility] 10/06 14:41 Order name: SARS-COV-2 RT PCR (Document "Date of Onset" if Symptomatic); Complete Time: [facility] 17:26 10/06 16:07 Order name: Urine Microscopic Only; Complete Time: 18:00 1 10/06 16:07 Order name: Urine Culture [facility] 10/06 16:12 Order name: Urine Dipstick-Ancillary; Complete Time: 16:38 EDMS 10/06 14:12 Order name: XRAY Chest (1 view); Complete Time: 16:38 [facility] 10/06 14:12 Order name: EKG; Complete Time: 14:13 [facility] 10/06 14:12 Order name: Cardiac monitoring; Complete Time: 15:14 [facility] 10/06 14:12 Order name: EKG - Nurse/Tech; Complete Time: 14:51 [facility] 10/06 14:12 Order name: IV Saline Lock; Complete Time: 15:50 [facility] 10/06 14:12 Order name: Labs collected and sent; Complete Time: 15:14 [facility] 10/06 14:12 Order name: O2 Per Protocol; Complete Time: 15:14 [facility] 10/06 14:12 Order name: O2 Sat Monitoring; Complete Time: 15:14 [facility] 10/06 14:31 Order name: Urine Dipstick-Ancillary (obtain specimen); Complete Time: 17:14 [facility] Administered Medications: 15:00 Drug: NS 0.9% 1000 ml Route: IV; Rate: 1 bolus; Site: left antecubital; sl2 17:56 Drug: Rocephin (cefTRIAXone) 1 grams Route: IV; Rate: calculated rate; Site: left sl2 antecubital; 18:36 Follow up: Response: No adverse reaction sl2 18:37 Follow up: IV Status: Completed infusion; IV Intake: 50ml sl2 18:02 Drug: Ativan (LORazepam) 1 mg Route: IVP; Site: left antecubital; sl2 18:36 Follow up: Response: No adverse reaction; Marked relief of symptoms; Blood pressure is sl2 lowered 18:19 Drug: hydrALAZINE 20 mg Route: IVP; Site: left antecubital; sl2 18:36 Follow up: Response: No adverse reaction; Blood pressure is lowered sl2 Disposition Summary: 10/06/21 18:00 Hospitalization Ordered Hospitalization Status: Inpatient Admission ma2 Location: Telemetry/MedSur (observation) ma2 Condition: Stable ma2 Problem: new ma2 Symptoms: are unchanged ma2 Bed/Room Type: Standard ne2 Provider: Prezas, Jorge(10/06/21 18:12) la1 Room Assignment: [facility](10/06/21 20:16) cg Diagnosis - Acute cystitis ma2 - Weakness - generalized ma2 - Essential (primary) hypertension ma2 - Dehydration ma2 Forms: - Medication Reconciliation Form ma2 - SBAR form ma2 Signatures: Dispatcher [employer] EDAriadne Deng RN RN Brandt Hopkins, SALES PROFESSIONAL BILINGUAL-C SALES PROFESSIONAL BILINGUAL-Jodi1 Natty Campos RN RN Mracela Sanders MD MD ma2 Michelle Mccord RN RN sl2 Corrections: (The following items were deleted from the chart) 18:12 18:00 Alberto Conn ma2 la1 20:16 18:00 ma2 cg
--- NOTE | 2021-10-06 18:01 | ER ---
Nurse's Notes [facility] Name: Estefani Leiva Age: 81 yrs Sex: Female : 1940 Arrival Date: 10/06/2021 Time: 14:03 Bed 19 Private MD: Diagnosis: Acute cystitis;Weakness-generalized;Essential (primary) hypertension;Dehydration Presentation: 10/06 14:05 Chief complaint: Patient's son or daughter states: Generalized weakness and decreased ss appetite x 8 days. Daughter reports that patient fell 2 weeks ago and has a spot on her lung that she has been causing discomfort, but has been too weak to make it to a doctor's appointment. Coronavirus screen: Client denies travel out of the [place] in the last 14 days. Ebola Screen: Patient denies exposure to infectious person. Patient denies travel to an Ebola-affected area in the 21 days before illness onset. Initial Sepsis Screen: Does the patient meet any 2 criteria? No. Patient's initial sepsis screen is negative. Does the patient have a suspected source of infection? No. Patient's initial sepsis screen is negative. Risk Assessment: Do you want to hurt yourself or someone else? Patient reports no desire to harm self or others. Onset of symptoms was September 28, 2021. 14:05 Method Of Arrival: EMS: [facility] 14:05 Acuity: LEORA 3 ss Historical: - Allergies: 14:09 PENICILLINS; ss - Home Meds: 18:33 gabapentin 100 mg Oral cap 1 cap 4 times a day [Active]; lisinopril 30 mg Oral tab 1 ss tab once daily [Active]; metoprolol tartrate 25 mg Oral tab 0.5 tab 2 times per day [Active]; solifenacin 5 mg Oral tab 1 tab once daily [Active]; - PMHx: 14:09 chronic diarrhea; CVA; right side weakness; Diabetes - NIDDM; Hyperlipidemia; ss Hypertension; - Immunization history:: Client reports receiving the 2nd dose of the Covid vaccine. - Social history:: Smoking status: Patient denies any tobacco usage or history of. Patient/guardian denies using alcohol, street drugs, The patient lives with family. - Family history:: not pertinent. Screenin:20 Abuse screen: Denies threats or abuse. Nutritional screening: No deficits noted. sl2 Tuberculosis screening: No symptoms or risk factors identified. Fall Risk No fall in past 12 months (0 pts). Secondary diagnosis (15 points) IV access (20 points). Ambulatory Aid- Crutches/Cane/Walker (15 pts). Gait- Impaired (20 pts.). Mental Status- Oriented to own ability (0 pts). Total Merritt Fall Scale indicates High Risk Score (45 or more points). Fall prevention measures have been instituted. Side Rails Up X 2 Placed Close to Nursing Station 1:1 Attendant Assigned Frequent Obs/Assessments Occuring Family Present and informed to notify staff if the need to leave the bedside. Assessment: 14:20 General: Appears in no apparent distress. well developed, Behavior is calm, sl2 cooperative, appropriate for age, Reports poor appetite X 8 days and generalized weakness. 14:20 Pain: Denies pain. Neuro: Reports weakness in Generalized. Neuro: No deficits noted. sl2 Level of Consciousness is awake, alert, obeys commands, Oriented to person, place, situation, Appropriate for age Denies blurred vision dizziness, difficulty swallowing, paresthesias numbness headache photophobia diplopia. Cardiovascular: No deficits noted. Cardiovascular: Capillary refill Rhythm is sinus bradycardia. Respiratory: No deficits noted. Breath sounds are clear bilaterally. GI: No deficits noted. No signs and/or symptoms were reported involving the gastrointestinal system. : No deficits noted. No signs and/or symptoms were reported regarding the genitourinary system. EENT: No deficits noted. No signs and/or symptoms were reported regarding the EENT system. Derm: No deficits noted. No signs and/or symptoms reported regarding the dermatologic system. Musculoskeletal: No deficits noted. No signs and/or symptoms reported regarding the musculoskeletal system. Reports weakness in all extremities - generalized. Vital Signs: 14:05 BP 172 / 68; Pulse 50; Resp 16; Temp 98.3(TE); Pulse Ox 98% on R/A; Weight 82.55 kg; ss Height 5 ft. 5 in. (165.10 cm); Pain 0/10; 15:30 BP 91 / 78; Pulse 50; Resp 18; Pulse Ox 97% on R/A; sl2 16:30 BP 160 / 67; Pulse 54; Resp 20; Temp 98.4; Pulse Ox 96% on R/A; sl2 16:30 BP 194 / 67; Pulse 59; Resp 18; Pulse Ox 94% on R/A; sl2 17:25 BP 227 / 83; Pulse 59; Pulse Ox 96% on R/A; Pain 0/10; ss 17:45 BP 238 / 125; Pulse 54; Resp 18; Pulse Ox 99% on R/A; sl2 18:30 BP 175 / 76; Pulse 77; Pulse Ox 97% on R/A; sl2 19:00 BP 154 / 80; Pulse 72; Resp 18; Pulse Ox 97% on R/A; sl2 20:30 BP 154 / 80; Pulse 81; Resp 20; Temp 98.4; Pulse Ox 97% on R/A; sl2 14:05 Body Mass Index 30.29 (82.55 kg, 165.10 cm) ED Course: 14:03 Patient arrived in ED. ss 14:09 Triage completed. ss 14:09 Arm band placed on right wrist. 14:10 Marcela Sanders MD is Attending Physician. ma2 14:20 Patient has correct armband on for positive identification. Placed in gown. Bed in low sl2 position. Call light in reach. Side rails up X2. Adult w/ patient. 14:20 No provider procedures requiring assistance completed. sl2 14:50 Michelle Mccord, CATHI is Primary Nurse. 2 14:51 EKG done, by ED staff, reviewed by Marcela Sanders MD. [facility] 15:14 XRAY Chest (1 view) In Process Unspecified. EDMS 15:15 Initial lab(s) drawn, by me, sent to lab. COVID swab sent to lab. 2 18:00 Alberto Conn MD is Hospitalizing Provider. ma2 18:12 Jorge Fraire DO is Hospitalizing Provider. la1 Administered Medications: 15:00 Drug: NS 0.9% 1000 ml Route: IV; Rate: 1 bolus; Site: left antecubital; sl2 17:56 Drug: Rocephin (cefTRIAXone) 1 grams Route: IV; Rate: calculated rate; Site: left sl2 antecubital; 18:36 Follow up: Response: No adverse reaction sl2 18:37 Follow up: IV Status: Completed infusion; IV Intake: 50ml 2 18:02 Drug: Ativan (LORazepam) 1 mg Route: IVP; Site: left antecubital; sl2 18:36 Follow up: Response: No adverse reaction; Marked relief of symptoms; Blood pressure is sl2 lowered 18:19 Drug: hydrALAZINE 20 mg Route: IVP; Site: left antecubital; sl2 18:36 Follow up: Response: No adverse reaction; Blood pressure is lowered sl2 Intake: 18:37 IV: 50ml; Total: 50ml. sl2 Outcome: 18:00 Decision to Hospitalize by Provider. ma2 22:24 Patient left the ED. cc4 Signatures: Dispatcher [employer] EDMS Ariadne Leblanc, CATHI RN ss Brandt Hopkins, VEST BUSHELER-C VEST BUSHELER-Cla1 Loretta La Marcela Nunez MD MD ma2 Nicky Perez RN RN cc4 Michelle Mccord RN RN sl2
[2021-10-06] MEDS ORDERED: HYDRALAZINE HCL 20 MG/ML VIAL ONE (18:12)
--- NOTE | 2021-10-06 19:07 | P.HP ---
Certification for Inpatient Patient admitted to: Inpatient With expected LOS: >2 Midnights Patient will require the following post-hospital care: None Practitioner: I am a practitioner with admitting privileges, knowledge of patient current condition, hospital course, and medical plan of care. Services: Services provided to patient in accordance with Admission requirements found in Title 42 Section 412.3 of the Code of Federal Regulations Patient History Date of Service: 10/06/21 Primary Care Provider: Benja osborne Reason for admission: UTI History of Present Illness: 81-year-old -Finnish female with history of atrial fibrillation not on chronic anticoagulation therapy, diabetes mellitus type 2, hypertension, h yperlipidemia, history of CVA with known lung mass presents emergency department for chest pain and generalized weakness. Patient also with dementia, oriented x1 living with daughters currently. Daughters report that patient had a fall last week and ever since then has been much more weak and not getting out of bed. Patient was evaluated in the emergency department labs were significant for creatinine 1.35 GFR 46 glucose 134 calcium 11 initial troponin 0.[address] changes. Patient also noted to have urinary tract infection with leuk esterase on dip and bacteria on microscopic analysis. Patient was given Rocephin, during ED stay patient became significantly hypertensive with blood pressure around 250/220, patient was given hydralazine, ED provider wishes to admit for further evaluation and management. Allergies Penicillins Adverse Reaction (Verified 06/19/20 04:11) Itching/Hives/Rash Home Medications: Aspirin [Aspirin EC 81 MG] 1 tab PO DAILY 09/08/15 Solifenacin [Vesicare*] 5 mg PO DAILY 09/08/15 Atorvastatin Calcium 40 mg PO DAILY 09/10/18 Metformin ER [Glucophage ER*] 1,000 tab PO BID 09/10/18 Carvedilol [Coreg] 3.125 mg PO BID 06/19/20 Inulin/Chromium Picolinate [Fiber Gummies] 1 tab PO DAILY 06/19/20 Lisinopril [Zestril] 2.5 mg PO DAILY 06/19/20 Multivitamin 1 tab PO DAILY 06/19/20 Nitrofuran Macro [Macrobid] 100 mg PO BID #14 cap 06/21/20 - Past Medical/Surgical History Diabetic: Yes -: IDDM -: HTN -: HIGH CHOLESTEROL -: CVA -: Dementia -: HYSTERECTOMY -: heart bypass -: abd sx Psychosocial/ Personal History: Patient lives at home with her 2 daughters - Family History Mother -: Cancer - Social History Smoking Status: Former smoker Alcohol use: No CD- Drugs: No Caffeine use: Yes Place of Residence: Home Review of Systems 10-point ROS is otherwise unremarkable General: Weakness, Malaise Cardiovascular: Chest Pain Physical Examination - Physical Exam General: Alert, Oriented x1 HEENT: Atraumatic, Normocephalic Neck: Supple Respiratory: Clear to auscultation bilaterally, Normal air movement Cardiovascular: No edema, Irregular heart rate/rhythm (A. fib, rate controlled) Capillary refill: <2 Seconds Gastrointestinal: Normal bowel sounds Integumentary: No significant lesion, No tenderness/swelling, No erythema Neurological: Normal speech, Normal tone - Studies Laboratory Data (last 24 hrs) 10/06/21 15:45: PT 13.7 H, INR 1.19 10/06/21 15:45: Sodium 142, Potassium 4.9, BUN 27 H, Creatinine 1.35 H, Glucose 134 H, Magnesium 2.2, Total Bilirubin 0.8, AST 28, ALT 22, Alkaline Phosphatase 66 10/06/21 15:00: WBC 6.50, Hgb 12.4, Hct 38.4, Plt Count 223 Assessment and Plan - Plan Assessment: UTI Hypertensive urgency with underlying primary hypertension Hypercalcemia,2 right-sided lung masses larger measuring 8 cm in the lateral upper right lung field Medical debility/generalized weakness after fall Atrial fibrillation not on chronic anticoagulation therapy Diabetes mellitus type 2 Hypertension Hyperlipidemia CKD 3 Plan: UTI: Continue with IV Rocephin, urine culture obtained. Hypertensive urgency with underlying primary hypertension: As needed hydr alazine, home medications including lisinopril and metoprolol restarted. Hypercalcemia,2 right-sided lung masses larger measuring 8 cm in the lateral upper right lung field: Patient was post of lung biopsy but appointment ended up needing to be canceled because patient was too weak to get there. Pulmonology consulted for additional input. Medical debility/generalized weakness after fall: Patient very weak, previously ambulated with a cane now currently basically bedbound per family. Will have patient evaluated by physical therapy, possible need for home health/physical therapy versus [facility] facility versus inpatient rehab. Atrial fibrillation not on chronic anticoagulation therapy: Patient on metoprolol for rate control we will continue this, monitor on telemetry. Diabetes mellitus type 2: A [facility] Accu-Chek, sliding scale insulin therapy. Patient takes 70/30 insulin twice daily, will initiate if blood sugars become elevated. Hypertension: Home medications continued Hyperlipidemia: Home medications continued CKD 3: Continue with gentle hydration DVT PPX: Heparin Code status: Full code at this time, daughter at bedside who is MPOA reports that she is going to discuss this further with her sister. Patient may have previously said she preferred DNR again they will discuss this further. Daughter Judit phone number [phone] Discharge Plan: Home Plan to discharge in: 48 Hours - Advance Directives Does patient have a Living Will: No Does patient have a Durable POA for Healthcare: No - Code Status/Comfort Care Code Status Assessed: Yes (Full code) Critical Care: No Time Spent Managing Pts Care (In Minutes): 55
[2021-10-06] MEDS ORDERED: HEPARIN 5000 UNIT/ML 1 ML VIAL SQ SCH (22:39)
[2021-10-06] MEDS: INSULIN -REGULAR HUMAN 50 UNIT/0.5 ML ML SQ SCH (22:39)
[2021-10-06] MEDS: ATORVASTATIN 20 MG TAB PO SCH (22:57)
[2021-10-06] MEDS: NA CHLORIDE 0.9% 1,000 ML IV SCH (22:58)
[2021-10-06 23:07] VITALS: BMI 18.6
[2021-10-07] MEDS ORDERED: ASPIRIN EC 81 MG TAB PO ONE (00:29)
[2021-10-07] MEDS ORDERED: ENOXAPARIN 60 MG/0.6 ML SQ SCH (00:30)
[2021-10-07] MEDS: HYDRALAZINE HCL 20 MG/ML VIAL IV PRN ×3 (00:48→16:09)
[2021-10-07] MEDS: METOPROLOL TAR 25 MG TAB PO SCH ×2 (06:04→17:18)
--- NOTE | 2021-10-07 06:11 | P.PN ---
Subjective Date of Service: 10/07/21 Primary Care Provider: [facility] Chief Complaint: UTI Subjective: Doing well Physical Examination - Vital Signs Temperature: 96.9 F Blood Pressure: 143/74 Pulse: 67 Respirations: 19 Pulse Ox (%): 91 - Studies Laboratory Data (last 24 hrs) 10/06/21 15:45: PT 13.7 H, INR 1.19 10/06/21 15:45: Sodium 142, Potassium 4.9, BUN 27 H, Creatinine 1.35 H, Glucose 134 H, Magnesium 2.2, Total Bilirubin 0.8, AST 28, ALT 22, Alkaline Phosphatase 66 10/06/21 15:00: WBC 6.50, Hgb 12.4, Hct 38.4, Plt Count 223 Assessment & Plan Discharge Plan: Home Plan to discharge in: 48 Hours Physician Review Additional Text: COVID: Negative CT Chest 07/2021: COMPARISON: Thorax Wo Con dated 01/20/2020 TECHNIQUE: Approximately 100 mL nonionic IV contrast was administered to the patient. All CT scans are performed using dose optimization technique as appropriate and may include automated exposure control or mA/KV adjustment according to patient size. FINDINGS: 8.1 cm mass along the right upper lung. There is a second pleural based mass with central low attenuation in the right lower lung measuring 2.7 cm. Emphysema is present.Coronary artery calcifications. Cardiomegaly. Sternotomy. Possible low-density lesion in the right hepatic lobe. Cholelithiasis. 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 Atherosclerosis. No renal ureteral calculi identified. No bowel obstruction. Bladder is unremarkable. Hysterectomy No bowel obstruction, free air, free fluid or abscess. No worrisome osseous finding. Sternotomy. Multilevel degenerative changes are present in the spine. IMPRESSION: Two masses in the right lung, the larger measuring over 8 cm . This is suspicious for neoplasm. There is a more indeterminate right lower lobe process with a broader differential. Could consider PET-CT or percutaneous biopsy for further evaluation. CXR: COMPARISON: CT chest August 03, portable chest August 03 TECHNIQUE: AP portable chest image was obtained 10/06/2021 3:14 pm . FINDINGS: Chronic interstitial lung disease is present in both lung martinez. Focally more prominent lung parenchymal opacification in the right base believed to be part of the posterior right base mass detailed on the August 03 CT chest study. A larger 8 centimeter mass in the lateral upper right lung field again noted. These masses are not clearly different from prior imaging. No significant failure or volume overload. Sternotomy wires are in place. Heart and vasculature are normal. No measurable pleural effusion and no pneumothorax. No acute bony abnormality seen. No acute aortic findings suspected. IMPRESSION: Two right-side chest masses are present superimposed on chronic fibrotic lung change. No acute chest finding seen. No significant change from the July imaging. Physical exam: General: Alert, Oriented x1, patient with dementia. Patient appears overall stable. HEENT: Atraumatic, Normocephalic Neck: Supple Respiratory: Clear to auscultation bilaterally, Normal air movement, patient on room air Cardiovascular: Normal sinus rhythm trolled Capillary refill: <2 Seconds Gastrointestinal: Normal bowel sounds Integumentary: No significant lesion, No tenderness/swelling, No erythema Neurological: Normal speech, Normal tone Impression: UTI Hypertensive urgency with underlying primary hypertension Hypercalcemia with abnormal CT scan in the past showing 2 masses in the right lung COPD with history of tobacco use Elevated troponin likely ischemic demand with history of CAD/CABG Medical debility/generalized weakness after fall Atrial fibrillation not on chronic anticoagulation therapy Diabetes mellitus type 2 Hyperlipidemia CKD 3 with hyperkalemia Plan: UTI: Patient remains on IV Rocephin. Urine and blood cultures obtained. Await culture results. Anticipate continued improvement. Physical therapy to assess ambulation. Will discuss with family about plan of care. Hypertensive urgency with underlying primary hypertension: Blood pressure improved with lisinopril 20 mg daily and metoprolol 12.5 mg 1 pill twice daily. Need to review home medications. Will monitor and address appropriately. Hypercalcemia with abnormal CT scan in the past showing 2 masses in the right lung: Pulmonology consulted. Pulmonology reports patient was to have bronchoscopy this past week but patient was weak and not able to get. Patient was also to have pulmonary function test. Pulmonology has started medication for COPD. Patient now on Brovana and Solu-Medrol. Will discuss further with pulmonology. COPD with history of tobacco use: Pulmonology consulted. Pulmonology has added Brovana and Solu-Medrol. Elevated troponin likely ischemic demand with history of CAD/CABG: Case discussed with cardiology. No intervention required at this time. Will obtain echocardiogram to further evaluate. Will monitor closely. Continue aspirin, Lipitor, folic acid and blood pressure medication. Medical debility/generalized weakness after fall: Physical therapy to evaluate patient. Will discuss with family about plan of care. Will recommend skilled placement. Atrial fibrillation not on chronic anticoagulation therapy: Continue metoprolol 12.5 mg 1 pill twice daily. Will monitor and adjust appropriately. Patient not on chronic anticoagulation therapy due to risk of fall, bleeding and age. Diabetes mellitus type 2: Will check hemoglobin A1c. Continue Accu-Cheks and sliding scale. Will monitor dress appropriately. Will review home medication. Hyperlipidemia: Continue Lipitor 20 mg daily CKD 3 hyperkalemia: Recheck potassium. Overall stable. Will monitor closely. Encourage oral intake. If taking good oral intake will Hep-Lock IV fluids DVT PPX: Lovenox Code status: Zigzag Stitcher spoke to family last night. Patient is full code at this time. Last night daughter was at bedside who is MPOA reports that she is going to discuss this further with her sister. Patient may have previously said she preferred DNR again they will discuss this further. Daughter Judit phone number [phone] Discharge Plan: Home at discharge but will consider skilled placement. Will discuss with family about plan of care. Time Spent Managing Pts Care (In Minutes): 55
[2021-10-07 07:14] LABS: Absolute Lymphocytes (CBC) 1.6 K/uL (0.7-4.9); Basophils % 0.6 % (0-1.3); Hematocrit 38.7 % (36.0-45.0); Lymphocytes % 19.3 % (15.3-44.8); MPV 10.4 fL (7.6-11.3); RBC Red Blood Cell Count 3.82 M/uL (3.86-4.86)
[2021-10-07] MEDS: INSULIN -REGULAR HUMAN 50 UNIT/0.5 ML ML SQ SCH ×4 (07:30→21:45)
[2021-10-07 07:31] LABS: Albumin 3.2 g/dL (3.4-5.0); Bilirubin Total 0.7 mg/dL (0.2-1.0); Protein, Total 8.3 g/dL (6.4-8.2); Thyroid Stimulating Hormone 0.812 uIU/mL (0.360-3.740); Troponin I 0.4 ng/mL (0.0-0.045)
[2021-10-07 07:35] LABS: Potassium 5.3 mmol/L (3.5-5.1)
[2021-10-07] MEDS ORDERED: CEFTRIAXONE 1000 MG/VIAL ONE (08:51)
[2021-10-07] MEDS ORDERED: NA CHLORIDE 0.9% 50 ML ONE (08:53)
--- NOTE | 2021-10-07 08:53 | P.CNS ---
Date of Consult: 10/07/21 Primary Care Provider: [facility] Chief Complaint: RUL lung mass History of Present Illness: age 81 Afibm metabolic synd, lung mass AW chest pain and gen weakness, hx of dementia, falling and weak, noted to have UTI, severe HTN PT was seen in my office ans was patito for bronch on Sunday . Pt has cancelled Bronch recently/ Former smoker the patient is weak nonverbal Allergies Penicillins Adverse Reaction (Verified 06/19/20 04:11) Itching/Hives/Rash Home Medications: Aspirin [Aspirin EC 81 MG] 1 tab PO DAILY 09/08/15 Solifenacin [Vesicare*] 5 mg PO DAILY 09/08/15 Atorvastatin Calcium 40 mg PO DAILY 09/10/18 Metformin ER [Glucophage ER*] 1,000 tab PO BID 09/10/18 Carvedilol [Coreg] 3.125 mg PO BID 06/19/20 Inulin/Chromium Picolinate [Fiber Gummies] 1 tab PO DAILY 06/19/20 Lisinopril [Zestril] 2.5 mg PO DAILY 06/19/20 Multivitamin 1 tab PO DAILY 06/19/20 Nitrofuran Macro [Macrobid] 100 mg PO BID #14 cap 06/21/20 - Past Medical/Surgical History Diabetic: Yes -: IDDM -: HTN -: HIGH CHOLESTEROL -: CVA -: Dementia -: CRF -: HYSTERECTOMY -: heart bypass -: abd sx Psychosocial/ Personal History: Patient lives at home with her 2 daughters - Family History Mother Medical History: Cancer - Social History Smoking Status: Unknown if ever smoked Alcohol use: No CD- Drugs: No Caffeine use: Yes Place of Residence: Home Review of Systems is unable to be obtained General: Weakness Physical Examination Temp Pulse Resp BP Pulse Ox 96.9 F 67 19 143/74 H 91 10/07/21 06:11 10/07/21 06:11 10/07/21 06:11 10/07/21 06:11 10/07/21 06:11 General: Unresponsive Neck: Supple Respiratory: Clear to auscultation bilaterally, Diminished Cardiovascular: No edema, Normal S1 S2 Laboratory Data (last 24 hrs) 10/06/21 15:45: PT 13.7 H, INR 1.19 10/06/21 15:45: Sodium 142, Potassium 4.9, BUN 27 H, Creatinine 1.35 H, Glucose 134 H, Magnesium 2.2, Total Bilirubin 0.8, AST 28, ALT 22, Alkaline Phosphatase 66 10/06/21 15:00: WBC 6.50, Hgb 12.4, Hct 38.4, Plt Count 223 - Problems (1) Lung cancer Current Visit: Yes Status: Acute Plan: Patient is 81 years of age admitted with progressive weakness hypercalcemia renal failure she has a large right upper lobe mass I strongly suspect that she has lung cancer Stefan causing hypercalcemia continue with IV hydration increase fluids 200 cc an hr I discussed with her daughter was scheduled for a fine- needle aspiration biopsy of the right upper lobe mass of the bronchoscopy Lab discuss with the daughter regarding the fine-needle aspiration biopsy of the right upper lobe risk including bleeding infection lung collapse patient has a mildly elevated troponin at term steroids prognosis very poor Qualifiers: Laterality: right
[2021-10-07] MEDS: ARFORMOTEROL TARTRATE 15 MCG/2 ML VIAL.NEB NEB SCH ×2 (08:59→20:00)
[2021-10-07] MEDS: ASPIRIN EC 81 MG TAB PO SCH (09:12)
[2021-10-07] MEDS: lisinopriL 20 MG TAB PO SCH (09:12)
[2021-10-07] MEDS: CEFTRIAXONE 1,000 MG in NA CHLORIDE 0.9% 50 ML IVPB SCH (09:12)
[2021-10-07] MEDS: METHYLPREDNISOLONE 40 MG INJ IV SCH ×2 (09:20→21:42)
[2021-10-07] MEDS: NA CHLORIDE 0.9% 1,000 ML IV SCH ×3 (09:30→22:44)
[2021-10-07 09:43] LABS: Arterial Blood Carboxyhemoglob 1.1 % (0-1.5); Blood Gas Oxyhemoglobin 94.2 % (94-97); Blood O2 Saturation 96.2 % (92-98.5)
[2021-10-07] MEDS: ENOXAPARIN 30 MG/0.3 ML SQ SCH (16:09)
--- NOTE | 2021-10-07 20:36 | EKG ---
Test Date: 2021-10-07 Test Time: 06:16:34 Underwriter: AF MEASUREMENT RESULTS: Intervals: Rate: 60 RI: 112 QRSD: 72 QT: 418 QTc: 418 [place]: P: 94 RI: 112 QRS: -17 T: 70 INTERPRETIVE STATEMENTS: Sinus rhythm with premature supraventricular complexes Nonspecific ST abnormality Abnormal ECG Compared to ECG 10/06/2021 15:27:38 Atrial premature complex(es) now present ST (T wave) deviation now present Electronically Signed On 10-07-21 20:34:58 THIRD MILLER by Erick Pedersen
--- NOTE | 2021-10-07 20:38 | EKG ---
Test Date: 2021-10-06 Test Time: 15:27:38 Chip Washer: CHRISTA MEASUREMENT RESULTS: Intervals: Rate: 45 [place]: QRSD: 68 QT: 486 QTc: 420 [place]: P: 88 [place]: QRS: 3 T: 89 INTERPRETIVE STATEMENTS: Sinus rhythm with 2nd degree AV block (Mobitz I) with 2:1 AV conduction Abnormal ECG Compared to ECG 08/03/2021 18:38:12 Sinus bradycardia no longer present Electronically Signed On 10-07-21 20:35:14 OPERATIONS SPECIALIST by Erick Pedersen
[2021-10-07] MEDS: ATORVASTATIN 20 MG TAB PO SCH (21:42)
[2021-10-08] MEDS: METOPROLOL TAR 25 MG TAB PO SCH ×2 (05:50→17:56)
--- NOTE | 2021-10-08 05:55 | P.PN ---
Subjective Date of Service: 10/08/21 Primary Care Provider: [facility] Chief Complaint: RUL lung mass Subjective: Improving, Doing well Physical Examination - Vital Signs Temperature: 97.6 F Blood Pressure: 199/61 Pulse: 69 Respirations: 17 Pulse Ox (%): 98 Assessment & Plan Discharge Plan: Other (shelter facility) Plan to discharge in: 48 Hours Physician Review Additional Text: COVID: Negative CT Chest 07/2021: COMPARISON: Thorax Wo Con dated 01/20/2020 TECHNIQUE: Approximately 100 mL nonionic IV contrast was administered to the patient. All CT scans are performed using dose optimization technique as appropriate and may include automated exposure control or mA/KV adjustment according to patient size. FINDINGS: 8.1 cm mass along the right upper lung. There is a second pleural based mass with central low attenuation in the right lower lung measuring 2.7 cm. Emphysema is present.Coronary artery calcifications. Cardiomegaly. Sternotomy. Possible low-density lesion in the right hepatic lobe. Cholelithiasis. 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 Atherosclerosis. No renal ureteral calculi identified. No bowel obstruction. Bladder is unremarkable. Hysterectomy No bowel obstruction, free air, free fluid or abscess. No worrisome osseous finding. Sternotomy. Multilevel degenerative changes are present in the spine. IMPRESSION: Two masses in the right lung, the larger measuring over 8 cm . This is suspicious for neoplasm. There is a more indeterminate right lower lobe process with a broader differential. Could consider PET-CT or percutaneous biopsy for further evaluation. CXR: COMPARISON: CT chest August 03, portable chest August 03 TECHNIQUE: AP portable chest image was obtained 10/06/2021 3:14 pm . FINDINGS: Chronic interstitial lung disease is present in both lung martinez. Focally more prominent lung parenchymal opacification in the right base believed to be part of the posterior right base mass detailed on the August 03 CT chest study. A larger 8 centimeter mass in the lateral upper right lung field again noted. These masses are not clearly different from prior imaging. No significant failure or volume overload. Sternotomy wires are in place. Heart and vasculature are normal. No measurable pleural effusion and no pneumothorax. No acute bony abnormality seen. No acute aortic findings suspected. IMPRESSION: Two right-side chest masses are present superimposed on chronic fibrotic lung change. No acute chest finding seen. No significant change from the July imaging. Physical exam: General: Alert, Oriented x1, patient with dementia. Patient appears overall stable. HEENT: Atraumatic, Normocephalic Neck: Supple Respiratory: Clear to auscultation bilaterally, Normal air movement, patient on room air Cardiovascular: Normal sinus rhythm trolled Capillary refill: <2 Seconds Gastrointestinal: Normal bowel sounds Integumentary: No significant lesion, No tenderness/swelling, No erythema Neurological: Normal speech, Normal tone Impression: UTI Hypertensive urgency with underlying primary hypertension Hypercalcemia with abnormal CT scan in the past showing 2 masses in the right lung COPD with history of tobacco use Elevated troponin likely ischemic demand with history of CAD/CABG Medical debility/generalized weakness after fall Atrial fibrillation not on chronic anticoagulation therapy Diabetes mellitus type 2 Hyperlipidemia CKD 3 with hyperkalemia Plan: UTI: Urine culture negative. Will discontinue IV antibiotic therapy. Continue physical therapy. Family wants patient to go to skilled placement. Will pursue skilled placement. Hypertensive urgency with underlying primary hypertension: Blood pressure still elevated. Will increase lisinopril to 20 mg 1 pill twice daily. Continue metoprolol 12.5 mg 1 pill twice daily. Will monitor and adjust medication. Hypercalcemia with abnormal CT scan in the past showing 2 masses in the right lung: Case discussed with pulmonology.. Pulmonology reports patient was to have bronchoscopy this past week but patient was weak and not able to get. Patient was also to have pulmonary function test. Pulmonology has started medication for COPD. Patient now on Brovana and Solu-Medrol. Will discuss further with pulmonology. COPD with history of tobacco use: Pulmonology has added Brovana and Solu-Medrol. Patient will need medication at discharge. Elevated troponin likely ischemic demand with history of CAD/CABG: Case discussed with cardiology. No intervention required at this time. Will obtain echocardiogram to further evaluate. Will monitor closely. Continue aspirin, Lipitor, folic acid and blood pressure medication. Medical debility/generalized weakness after fall: Physical therapy to evaluate patient. Will discuss with family about plan of care. Will recommend skilled placement. Atrial fibrillation not on chronic anticoagulation therapy: Continue metoprolol 12.5 mg 1 pill twice daily. Will monitor and adjust appropriately. Patient not on chronic anticoagulation therapy due to risk of fall, bleeding and age. Diabetes mellitus type 2: Will check hemoglobin A1c. Continue Accu-Cheks and sliding scale. Will monitor dress appropriately. Will review home medication. Hyperlipidemia: Continue Lipitor 20 mg daily CKD 3 hyperkalemia: Recheck potassium. Overall stable. Will monitor closely. Encourage oral intake. If taking good oral intake will Hep-Lock IV fluids DVT PPX: Lovenox Code status: spoke to Daughter Judit phone number [phone] yesterday. Patient remains Full code Discharge Plan: Spoke to daughter. Daughter wants patient to go to SNF. Await SNF approval. Time Spent Managing Pts Care (In Minutes): 55
[2021-10-08 06:16] LABS: Basophils % 0.4 % (0-1.3); Hematocrit 38.1 % (36.0-45.0); Lymphocytes % 10.2 % (15.3-44.8); MPV 10.3 fL (7.6-11.3); RBC Red Blood Cell Count 3.79 M/uL (3.86-4.86)
[2021-10-08 06:29] LABS: Albumin 3.4 g/dL (3.4-5.0); Bilirubin Total 0.6 mg/dL (0.2-1.0); Magnesium 2.1 mg/dL (1.8-2.4); Potassium 4.5 mmol/L (3.5-5.1); Protein, Total 8.6 g/dL (6.4-8.2)
[2021-10-08 07:18] LABS: Platelet Estimate ADEQ; Toxic Granulation 1+; White Blood Cell Scan OK (OK)
[2021-10-08 07:19] LABS: Anisocytosis 2+; Blood Morphology Comment NOTED (NOT SEEN); Macrocytosis 1+; Target Cells 1+
[2021-10-08] MEDS: INSULIN -REGULAR HUMAN 50 UNIT/0.5 ML ML SQ SCH ×4 (07:30→20:22)
[2021-10-08] MEDS: ARFORMOTEROL TARTRATE 15 MCG/2 ML VIAL.NEB NEB SCH ×2 (08:01→20:00)
[2021-10-08] MEDS: NA CHLORIDE 0.9% 1,000 ML IV SCH ×2 (08:44→18:44)
[2021-10-08] MEDS: METHYLPREDNISOLONE 40 MG INJ IV SCH ×2 (10:13→20:22)
[2021-10-08] MEDS: ASPIRIN EC 81 MG TAB PO SCH (10:14)
[2021-10-08] MEDS: lisinopriL 20 MG TAB PO SCH ×2 (10:15→20:21)
[2021-10-08] MEDS: CEFTRIAXONE 1,000 MG in NA CHLORIDE 0.9% 50 ML IVPB SCH (10:23)
[2021-10-08] MEDS: ENOXAPARIN 30 MG/0.3 ML SQ SCH (17:51)
--- NOTE | 2021-10-08 19:39 | CON ---
Date of Consultation: 10/07/2021 Reason For Consultation: Weakness and elevated troponin and BNP. History Of Present Illness: Ms. Leiva is 81, was admitted with UTI, general weakness, decreased a ppetite. No cardiac complaint. She has a history of chronic diarrhea, CVA, diabetes, hyperlipidemia , and hypertension. Denied any palpitation or syncope. Dr. Simon has been consulted for some jacquelin g masses that have not changed since July. Past Medical History: As stated above. Allergies: PENICILLIN. Review of Systems: Negative. Social History: Negative. Family History: Negative. Medications: At home include gabapentin, lisinopril, and metoprolol. Physical Examination: Vital Signs: Stable. She was afebrile. She was in a sinus rhythm. HEENT: Negative. Neck: Supple without any bruit, lymphadenopathy, JVD, or thyromegaly. Chest: Clear to auscultation and percussion. Cardiac: Exam revealed a regular rhythm and rate. No murmurs, gallops, or rubs. Abdomen: Benign. Extremities: Revealed no clubbing, cyanosis, or edema. Diagnostic Data: Include a creatinine of 1.34. Chest x-ray was stated earlier. Her white count was normal. Her troponin was 0.4, glucose was 134. Her BNP was 759. Appeared to have UTI. She was CO VID negative. Impression And Plan: 1.Elevated troponin without any chest pain secondary to demand ischemia. Echocardiogram is pending. She is on aspirin, Lipitor, Lovenox, hydralazine, insulin, metoprolol, antibiotics, lisinopril, and I agree with all that regimen. She is also on inhalers. 2.Her other problems including lung masses. Dr. Simon has been consulted. She also had diabetes that is poorly controlled, history of cerebrovascular accident, chronic diarrhea, hypertension, and neuropathy. All those problems are stable. We will see what her echocardiogram shows before making any further decision. She is certainly not a candidate for heart catheterization at this point. Dep ending on what her echo shows, we can plan that as an outpatient. For now, continue present regimen. SORAYA/RENE Voice ID: [id number] Report ID: [id number]
[2021-10-08] MEDS: ATORVASTATIN 20 MG TAB PO SCH (20:22)
--- OUTSIDE RECORDS SUMMARY | 2021-10-08 21:41 | XMS REPORT | Continuity of Care Document ---
:1940 Author Organization [facility] t Address [address] [place] [address] Care Team Providers Name Role Phone Pcp Primary Care Physician Unavailable KRISTIE NOONAN Attending Clinician Unavailable ROBERT FARFAN Attending Clinician Unavailable KRISTIE NOONAN Admitting Clinician Unavailable ROBERT FARFAN Admitting Clinician Unavailable Payers Payer Name Policy Type Policy Number Effective Date Expiration Date S sherman UNITED MEDICARE [id number] 2018 HMO 00:00:00 [facility] STAR [id number] 2018 PLAN 00:00:00 Problems Condition Condition Condition Status Onset Resolution Last Treating Co mments Source Name Details Category Date Date Treatment Clinician Date COVID-19 COVID-19 Disease [facility] detected detected [facility] Medica l 00 Center BRBPR BRBPR Disease Active 2020- [facility] (bright (bright 8-[facility] - red blood red blood 00:00: Medi preeti per per 00 Center rectum) rectum) Anemia Anemia Disease Active 2019- [facility] - 00:[facility]: Medical 00 Center LIVER LAC Diagnosis Active 2020-01-20 Memoria 2 19:43:00 l LIVER 00:00: Orestes LAC 00 Active 01/20/2020 [facility] ACUTE Diagnosis Active 2019-2020-02-02 Mem oria TRAUMATIC 01-20 22:10:00 l PAIN ACUTE 00:00: Jose Luis TRAUMATIC 00 PAIN Active 01/20/2020 [facility] S/P CABG S/P CABG Disease Active [facility] (coronary (coronary 2- Luke s - artery artery 00:00: Medical bypass bypass 00 Center graft) graft) S/P S/P Disease Active [facility] carotid carotid 2- [facility] - endarterec endarterec 00:00: Me shell germain jessa 00 Center CAD CAD Disease Active [facility] (coronary (coronary 1- Luke s - artery artery 00:00: Medical disease) disease) 00 Center Carotid Carotid Disease Active [facility] stenosis, stenosis, 1- Luke s - right right 00:00: Medical 00 Center Chronic Problem Active 2009-112021-06-02 Johnnie wilder obstructiv 0-11 21:45:07 l e lung Chronic 00:00: Jose Luis disease obstructiv 00 (disorder) e lung disease (disorder) Active 09/05/2010 Problem 06/02/2021 Data migrated from [employer] on 04/26/15. Chris Neuro,[facility] Dementia Problem Active 2021-06-02 Mem oria (disorder) 21:45:07 l Dementia Chris n (disorder) Active Problem 06/02/2021 [facility] Diabetes Problem Active 2021-06-02 Mem oria mellitus 21:45:07 l type 2 Diabetes Chris n (disorder) mellitus type 2 (disorder) Active Problem 06/02/2021 [facility] ACUTE PAIN Diagnosis Active 2020-02-02 Memoria DUE TO 22:10:00 l TRAUMA ACUTE Jose Luis PAIN DUE TO TRAUMA Active [facility] Carotid Carotid Disease Active [facility] artery artery [facility] - occlusion occlusion [facility] Stroke Stroke Disease Active [facility] Hypertensi Hypertensi Disease Active [facility] Hyperlipid Hyperlipid Disease Active [facility] emia emia [facility] Cigarette Problem Resolve 2009-112021-06-02 2021-06-02 Memoria smoker d 0-11 21:45:07 21:45:07 l (finding) 00:00: Jose Luis Cigarette 00 smoker (finding) Resolved 09/05/2010 Problem 06/02/2021 Data migrated from [employer] on 04/26/15. 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 Allergies, Adverse Reactions, Alerts Allergy Allergy Status Severity Reaction(s) Onset Inactive Treating Comm ents Source Name Type Date Date Clinician NO KNOWN Allergy Active [facility] Family History Family Member Diagnosis Comments Start Date Stop Date Source Natural mother Breast cancer [facility] Social History Social Habit Start Date Stop Date Quantity Comments Source Sex Assigned [facility] of tobacco [facility] use [facility] History SDNM [facility] - Alcohol Std Drinks [facility] History SDOH [facility] - Alcohol Binge Medical [facility] Social History 2021-04-18 2021-04-18 [facility] 18:43:46 18:43:46 Orestes Cigarettes smoked 2020-06-27 2020-06-[address] [facility] - current (pack per 00:00:00 00:00:00 [facility] day) - Reported Tobacco use and 2020-06-27 2020-06-[address] [facility] - exposure 00:00:00 00:00:00 [facility] Alcohol intake 2020-06-27 2020-06-27 Current drinker of [facility] - 00:00:00 00:00:00 alcohol (finding) [facility] Alcohol Comment 2018-11-06 2018-11-[address] [facility] - 00:00:00 00:00:00 [facility] History SDOH 2018-11-04 2018-11-[address] [facility] - Alcohol Frequency 00:00:00 00:00:00 [facility] Smoking Status Start Date Stop Date Source Former smoker 2020-06-27 00:00:00 2020-06-27 00:00:[address] [facility] Social [facility] Medications Ordered Filled Start Stop Current Ordering Indication Dosage Frequency Signature Comments Components Source Medication Medication Date Date Medication? Clinician (SIG) Name Name metoprolol Yes 12.5 mg = Me moria tartrate 25 5-24 0.5 tab, l mg oral 18:43: PO, BID, # Herm nancy tablet 00 180 tab, 0 Refill(s) PreserVisio Yes PO, Daily, Memoria n 5-24 0 l 18:41: Refill(s) Orestes 00 Multi Yes 0 Memoria Vitamin+ 5-24 Refill(s) l 18:40: Orestes 00 Vitamin D3 Yes 0 Memoria 5-24 Refill(s) l 18:40: Orestes 00 Humulin Yes 32 units, Memor ia 70/30 5-24 SUB-Q, 0 l 18:39: Refill(s) Jose Luis 00 Metformin Yes 500 mg = 1 Me moria hydrochlori 5-24 tab, PO, l de 500 MG 18:39: BID, 0 Chris n Oral Tablet 00 Refill(s) lisinopriL 2020- No 20mg QD Take [address] [...] by mouth [facility]ukes - tablet 17:40: daily. [place] [address] Center HUMULIN Yes Resume if [facility] 70[facility]30 U-100 06-30 taking [facility] - INSULIN 100 00:00: prior to Wa dical unit/mL 00 admission, Center (70-30) resume at injection prior home dose. hydrALAZINE No 50mg [id number] Take [address] (APRESOLINE 06-30 [id number] tablet (50 [facility] - ) 50 MG [...] tab, oral tablet 0 Refill(s) Folic Acid 2020-0 Yes 1 mg = 1 Mem oria 1 MG Oral 3-03 tab, PO, l Tablet 18:28: Daily, # Orestes 00 30 tab, 0 Refill(s) thiamine 2020-0 Yes 100 mg = 1 Mem oria 100 mg oral 3-03 tab, PO, l tablet 18:28: Daily, # Jose Luis 00 30 tab, 0 Refill(s) amLODIPine 2020-0 Yes 5 mg = 1 Mem oria 5 mg oral 3-03 tab, PO, l tablet 18:28: Daily, # Jose Luis 00 30 tab, 0 Refill(s) Dextrose 2020-0 No 12.5 gm, Memor ia 50% Syringe 01-25 25 mL, l (D50W) 20:09: Route: IVP, Drug Form: INJ, Dosing Weight 68, kg, PRN, PRN Blood Glucose Results, Start date: 01/26/20 14:09:00 [employer] MARKET[employer]IST, Duration: 30 day, Stop date: 02/25/20 15:08:00 CDT, 0 Glucagon 2019-0 No 1 mg, Memoria 01-25 Route: IM, l 20:09: Drug form: PDR/INJ, PRN, Dosing Weight 68, kg, PRN Blood Glucose Results, Start date: 01/26/20 14:09:00 [employer] MARKET[employer] SPECIALIST, Duration: 30 day, Stop date: 02/25/20 15:08:00 CDT, 0 Insulin 2020-0 No Notes: Memoria regular - (Same as: l 20:09: Humulin R) Roll in palms of hands gently; Do not shake vigorously . WASTE: F/P - Black; E - Municipal Trash Bin Stable for 31 days at room temperatur e Expires in days from ____Date Lisinopril 2019-0 No Notes: Memor ia - (Same as: l 15:00: Prinivil) Amlodipine 2020-0 No Notes: Memor ia 2-29 (Same as: l 15:00: Norvasc) Orestes 00 Aspirin 81 2019-0 No Notes: Do Me moria MG Enteric 2-29 not crush l Coated 15:00: or chew. Orestes Tablet 00 (Same As: Ecotrin) Furosemide No Notes: Memor ia 20 MG Oral 2-29 (Same as: l Tablet 03:00: Lasix) Orestes [Lasix] 00 May cause GI upset. Give with food or milk. NPH 2019-0 Yes 20 unit, Memoria Insulin, 2-28 SUB-Q, l Human 70 20:43: BID, 0 Jose Luis UNT/ML / 00 Refill(s) Regular Insulin, Human 30 UNT/ML Injectable Suspension [Humulin] gabapentin 0 Yes 100 mg = 1 M emoria [...] 2-28 TOP, TID, l MG/ML 20:43: 0 Jose Luis Topical 00 Refill(s) Cream [Proctozone HC] cholestyram [...] Daily, 0 He rmann 00 Refill(s) lisinopril 2019-0 Yes 2.5 mg = 1 M emoria 2.5 mg oral 2-28 tab, PO, l tablet 20:43: Daily, 0 Orestes 00 Refill(s) carvedilol 2020-0 Yes 3.125 mg = M emoria 3.125 mg 2-28 1 tab, PO, l oral tablet 20:43: BID, 0 Herm nancy 00 Refill(s) Metformin 2019-0 Yes 2,000 mg = Me moria hydrochlori 2-28 2 tab, PO, l de 1000 MG 20:43: BID, 0 Emma nn Oral Tablet 00 Refill(s) solifenacin 2019-0 Yes 5 mg = 1 Me moria 5 mg oral 2-28 tab, PO, l tablet 20:43: Daily, 0 Orestes 00 Refill(s) Furosemide 2019-0 Yes 20 mg = 1 Me moria 20 MG Oral 2-28 tab, PO, l Tablet 20:43: QPM, 0 Jose Luis 00 Refill(s) Aspirin 81 2019-0 Yes 81 mg = 1 Me moria MG Enteric 2-28 tab, PO, l Coated 20:43: Daily Jose Luis Tablet 00 carvedilol No Notes: Memor ia - Give with l 03:00: food. Orestes 00 (Same As: Coreg) Magnesium No Notes: Memori a Sulfate 01-22 WASTE: F/P l 19:23: - Sink; E Orestes - Municipal Trash Bin Iohexol No 100 mL, Memoria 01-22 Route: l 19:05: IVP, Drug Form: SOLN, Dosing Weight 68, kg, ONCALL, STAT, Start date: 01/22/20 13:05:00 [employer] MARKETING SPECIALIST, Duration: 1 doses or times, Dose = 2.2ml/kg, Max dose = 100ml -- "To be infused by Radiology Staff ONLY" carvedilol No Notes: Memor ia 2- Give with l 17:09: food. Orestes (Same As: Coreg) Enoxaparin No Notes: Memor ia - (Same as: l 10:00: Lovenox) Jose Luis 00 Docusate No Notes: Memoria Sodium 50 - (Same as l MG / 03:00: Senokot-S) sennosides, 00 Equiv. to NURSING HOME 8.6 MG [place] Oral Tablet e. remove No Notes: Memoria patch - Remove l 03:00: patch 12 hours after applicatio n each day. Thiamine No Notes: Memoria 01-21 (Same As: l 19:00: Vitamin B1) Folic Acid No Notes: Memor ia 01-21 (Same as: l 19:00: Folvite) Vitamin B12 No Notes: Johnnie wilder 01-21 (Same As: l 19:00: Vitamin B-12) Dextrose No 12.5 gm, Memor ia 50% Syringe 01-21 25 mL, l (D50W) 16:13: Route: IVP, Drug Form: INJ, Dosing Weight 68, kg, PRN, PRN Blood Glucose Results, Start date: 01/21/20 10:13:00 [employer] MARKETING SPECIALIST, Duration: 30 day, Stop date: 02/20/20 11:12:00 CDT, 0 Glucagon No 1 mg, Memoria 01-21 Route: IM, l 16:13: Drug form: PDR/INJ, PRN, Dosing Weight 68, kg, PRN Blood Glucose Results, Start date: 01/21/20 10:13:00 [employer] MARKET[employer] SPECIALIST, Duration: 30 day, Stop date: 02/20/20 11:12:00 CDT, 0 Insulin No Notes: Memoria regular 01-21 (Same as: l 16:13: Humulin R) Roll in palms of hands gently; Do not shake vigorously . WASTE: F/P - Black; E - Municipal Trash Bin Stable for 31 days at room temperatur e Expires in days from ____Date carvedilol No Notes: Memor ia - Give with l 16:06: food. (Same As: Coreg) Spironolact No Notes: Johnnie wilder one 01-21 (Same As: l 16:06: Aldactone) Hazardous Drug Group 2:Non-anti neoplastic Hazardous Drug -- Refer to safe handling procedure PPE [id number] Lidocaine No Notes: Memori a 0.05 MG/MG 01-21 (Same as: l Transdermal 15:00: Lidoderm) H ermann Patch 00 "Remove old patch before applicatio n of new patch" Miralax No Notes: Memoria 2-26 Dissolve l 15:00: in 8 oz of Jose Luis water or juice. (Same as: Miralax) Hydralazine No Notes: Ojhnnie wilder -26 (Same as: l 06:00: Apresoline Orestes ) Push over 5 minutes Tylenol No Notes: Max Johnnie wilder - acetaminop l 04:40: hen 4000 Jose Luis mg/day (4 gm/day). (Same as: Tylenol Extra Strength) Tramadol No Notes: Not Mem oria 01-21 to exceed l 04:40: 400mg/day. Orestes (Same As: Ultram) gabapentin No Notes: Memor ia 100 MG Oral 01-21 (Same as: l Capsule 04:40: Neurontin) Herm nancy Isolyte S No Notes: Memori a PH 7.4 01-21 (Same as: l 1,000 mL 04:38: Isolyte S Herm nancy 00 PH7.4, Normosol-R PH 7.4, Plasma-Lyt e A ) Isolyte S 2019-0 No 500 mL, Memor ia PH-7.4 01-21 Route: IV, l (Bolus) IV 02:43: ONCE, Chris n 00 Dosing Weight 68 kg, Start date: 01/20/20 20:43:00 [employer] MARKET[employer]IST, Stop date: 01/20/20 20:43:00 [employer] MARKET[employer]IST Morphine No 4 mg, Memoria 01-21 Route: l 02:26: IVP, ONCE, Orestes 00 Dosing Weight 68, kg, Priority: STAT, Start date: 01/20/20 20:26:00 [employer] MARKET[employer]IST, Stop date: 01/20/20 20:26:00 [employer] MARKET[employer] SPECIALIST Ondansetron No 4 mg, Memor ia 2 MG/ML 01-21 Route: IV, l Injectable 02:26: ONCE, Chris n Solution 00 Dosing [Zofran] Weight 68, kg, Start date: 01/20/20 20:26:00 [employer] MARKET[employer] SPECIALIST, Stop date: 01/20/20 20:26:00 [employer] MARKET[employer]IST Fentanyl No 50 Memoria 2-26 microgram, l 01:18: Route: Orestes 00 IVP, ONCE, Dosing Weight 68, kg, Priority: STAT, Start date: 01/20/20 19:18:00 [employer] MARKETING SPECIALIST, Stop date: 01/20/20 19:18:00 [employer] MARKETING SPECIALIST Saline No Notes: Memoria Flush 0.9% 2-26 Same as: l 00:58: BD Jose Luis 00 Posiflush Sterile polyethylen Yes Use daily C [...] - 40 MG 00:00: daily. Medical tablet [address] [place] [address] furosemide 2017-11 Yes 20mg QD Take [address] (LASIX) 20 0-17 by mouth [facility] - MG tablet 00:00: daily. Medica l 00 [place] VESICARE 5 2017-11 Yes 5mg QD Take [address] mg tablet 0-17 by mouth [facility] - 00:00: daily. Medical 00 [place] metFORMIN 2017-11 Yes 1000mg Q.5D Take 1,[address] [facility] (GLUCOPHAGE 0-06 mg by [facility] - -XR) 500 MG 00:00: mouth 2 Med ical 24 hr 00 (two) Center tablet times daily. Vital Signs Vital Name Observation Time Observation Value Comments Source HEIGHT 2020-06-26 00:00:00 177.8 cm WEIGHT 2020-06-26 00:00:00 75.297 kg HEIGHT 2020-06-26 00:00:00 177.8 cm WEIGHT 2020-06-26 00:00:00 75.297 kg Systolic (mm Hg) 2021-04-18 18:24:00 Johnnie Amaya Diastolic (mm Hg) 2021-04-18 18:24:00 [facility] kelley Amaya Heart Rate 2021-04-18 18:24:00 [facility] Resp[facility] 2021-04-18 18:24:00 Memori al Jose Luis Weight 2021-04-18 18:24:00 [facility] Jose Luis Temperature Oral (F) 2020-01-28 18:07:00 98.2 F [facility] Jose Luis Heart Rate 2020-01-28 18:07:00 [facility] Jose Luis Systolic (mm Hg) 2020-01-28 18:07:00 Johnnie rial Jose Luis Diastolic (mm Hg) 2020-01-28 18:07:00 Mem orial Jose Luis Temperature Oral (F) 2020-01-28 16:58:00 98.4 F [facility] Jose Luis Heart Rate 2020-01-28 16:58:00 [facility] Jose Luis Respitory Rate 2020-01-28 16:58:00 Memori al Orestes Systolic (mm Hg) 2020-01-28 16:58:00 Johnnie rial Orestes Diastolic (mm Hg) 2020-01-28 16:58:00 Mem orial Orestes Temperature Oral (F) 2020-01-28 14:49:00 98.1 F Memorial Orestes Heart Rate 2020-01-28 14:49:00 [facility] Orestes Respitory Rate 2020-01-28 14:49:00 Memori al Jos Eluis Systolic (mm Hg) 2020-01-28 14:49:00 Johnnie rial Orestes Diastolic (mm Hg) 2020-01-28 14:49:00 Mem orial Orestes Respitory Rate 2020-01-28 09:35:00 Memori al Orestes Height 2020-01-21 00:44:00 172.72 cm [facility] Jose Luis BMI Calculated 2020-01-21 00:44:00 Memori al Jose Luis Weight 2020-01-21 00:44:00 [facility] Procedures Procedure Date / Time Performed Performing Clinician [facility] e Procedure on heart [facility] [...] - Test 00:00:00 (1 of 1 - [facility] [id number] PCV13) [code = PNEUMOCOCCAL 65+ YRS (1 of 1 - [id number] PCV13)] Encounters Start End Encounter Admission Attending Care Care Encounter Source Date/Time Date/Time Type Type Clinicians Facility Department ID 2020-06-27 Inpatient ER BUZZ NOONAN Internal [id number] [facility] 01:34:00 PILAR Med 2021-05-31 2021-05-31 Ambulatory nullFlavo MNA [id number] Memoria 16:15:00 16:15:00 Pre-Reg r Neurology 01 l [facility] 2021-04-18 2021-04-19 Outpatient nullFlavo MNA [id number] Memoria 18:30:00 04:59:59 r Neurology 00 l [facility] 2020-01-21 2020-01-28 Inpatient nullFlavo [facility] [id number] Memoria 00:42:00 19:30:00 r Orestes 56 l [facility] Results Test Description Test Time Test Comments Results Result Comments Source POCT-GLUCOSE METER 2020-06-30 17:10:00 Test Item Value Reference Range Interpretation Comme nts POC-GLUCOSE METER (Sidense) 155 mg/dL 70-110 H : TESTED AT [address] (test code = 1538) [facility] X, [address]: Tobacco Hanger/Techni bhavya ID = [id number] for Jinny Penn POCT-GLUCOSE [id number] 13:50:00 Test Item Value Reference Range Interpretation Comments POC-GLUCOSE METER 153 mg/dL 70-110 H : [facility] (Sidense) (test code = [facility], 153) [address]: Tobacco Hanger/Techni bhavya ID = [id number] for Gemini Dodson POCT-GLUCOSE [id number] 07:49:00 Test Item Value Reference Range Interpretation Comments POC-GLUCOSE METER 137 mg/dL 70-110 H : [facility] (Sidense) (test code = [facility], 153) [address]: Tobacco Hanger/Techni bhavya ID = [id number] for CA STRO, LORETA CBC W/PLT COUNT & AUTO [id number] 06:39:00 Test Item Value Reference Range Interpretation [...] PERCENT (BEAKER) (test code = 2801) POCT-GLUCOSE [id number] 20:49:00 Test Item Value Reference Range Interpretation Comments POC-GLUCOSE METER 138 mg/dL 70-110 H : TESTED A T [facility] 6720 (BEAKER) (test code = ALONDRA Coy [facility], 1538) [address]: Tobacco Hanger/Techni bhavya ID = [id number] for RHONDA NEVAREZ POCT-GLUCOSE [id number] 17:00:00 Test Item Value Reference Range Interpretation Comments POC-GLUCOSE METER 137 mg/dL 70-110 H : Notified RN/MD: (BEAKER) (test code = TESTED AT [facility] 6720 1538) JAILENE [facility], [address]: Tobacco Hanger/Techni bhavya ID = [id number] for RUTHIE OCHOA CBC W/PLT COUNT & AUTO [id number] 12:31:00 Test Item Value Reference Range Interpretation [...] (test code = 1+ few 961) POCT-GLUCOSE [id number] 12:24:00 Test Item Value Reference Range Interpretation Comments POC-GLUCOSE METER 139 mg/dL 70-110 H : Notified RN/MD: (BEAKER) (test code = TESTED AT [facility] 6720 1538) [facility], [address]: Tobacco Hanger/Techni bhavya ID = [id number] for AN RUTHIE WARREN [id number] 08:26:00 Test Item Value Reference Range Interpretation Comments FERRITIN (BEAKER) (test code = 406.03 ng/mL 5.00-275.00 H 361) Tobacco Hanger ID - NTPPOCT-GLUCOSE [id number] 07:44:00 Test Item Value Reference Range Interpretation Comments POC-GLUCOSE METER 126 mg/dL 70-110 H : TESTED A T [facility] 6720 (BEAKER) (test code = [facility], 1538) [address]: Tobacco Hanger/Techni bhavya ID = [id number] for AN RUTHIE WARREN [id number] 07:44:00 Test Item Value Reference Range Interpretation Comments MAGNESIUM (BEAKER) (test code = 1.6 mg/dL 1.6-2.6 627) Tobacco Hanger ID - NTPBASIC METABOLIC [id number] 07:44:00 Test Item Value Reference Range Interpretation [...] S NOT APPLICABLE FOR DIALYSIS PATIEN TS. Tobacco Hanger ID - NTPHEPATIC FUNCTION [id number] 07:44:00 Test Item Value Reference Range Interpretation [...] (test code = 24 U/L 6-55 347) Tobacco Hanger ID - NTPC-REACTIVE [id number] 07:44:00 Test Item Value Reference Range Interpretation Comments C-REACTIVE PROTEIN (BEAKER) (test 1.13 mg/dL 0.00-0.50 H code = 676) Tobacco Hanger ID - [id number] 07:17:00 Test Item Value Reference Range Interpretation [...] exclusion of thrombosis is within 95-100% range. [id number] 07:07:00 Test Item Value Reference Range Interpretation [...] is2.5-3.5 for patients wiht mechanical heart valves.POCT-GLUCOSE [id number] 22:26:00 Test Item Value Reference Range Interpretation Comments POC-GLUCOSE METER 179 mg/dL 70-110 H : TESTED A T [facility] 6720 (BEAKER) (test code = [facility], 1538) [address]: Tobacco Hanger/Techni bhavya ID = [id number] for TAHMINA AWAD POCT-GLUCOSE [id number] 17:20:00 Test Item Value Reference Range Interpretation Comments POC-GLUCOSE METER 172 mg/dL 70-110 H : TESTED A T [facility] 6720 (BEAKER) (test code = [facility], 1538) [address]: Tobacco Hanger/Techni bhavya ID = [id number] for Yo savi, Cassidy POCT-GLUCOSE [id number] 12:48:00 Test Item Value Reference Range Interpretation Comments POC-GLUCOSE METER 158 mg/dL 70-110 H : TESTED A T [facility] 6720 (BEAKER) (test code = [facility], 1538) [address]: Tobacco Hanger/Techni bhavya ID = [id number] for Yo savi, Cassidy LACTATE DEHYDROGENASE (LDH)2020-06-28 11:32:00 Test Item Value Reference Range Interpretation Comments LACTATE DEHYDROGENASE (BEAKER) (test 406 U/L 125-220 H code = 635) Tobacco Hanger ID - WALI LHEMOGLOBIN [id number] 08:59:00 Test Item Value Reference Range Interpretation Comments HEMOGLOBIN A1C (BEAKER) (test code = 7.0 % 4.3-6.1 H 368) POCT-GLUCOSE [id number] 08:19:00 Test Item Value Reference Range Interpretation Comments POC-GLUCOSE METER 124 mg/dL 70-110 H : TESTED A T [facility] 6720 (BEAKER) (test code = [facility], 1538) [address]: Tobacco Hanger/Techni bhavya ID = [id number] for FREDY SANCHEZ [id number] 08:08:00 Test Item Value Reference Range Interpretation Comments MAGNESIUM (BEAKER) (test code = 1.7 mg/dL 1.6-2.6 627) Tobacco Hanger ID - WALI LBASIC METABOLIC [id number] 08:08:00 Test Item Value Reference Range Interpretation [...] S NOT APPLICABLE FOR DIALYSIS PATIEN TS. Tobacco Hanger ID - PIAYA LHEPATIC FUNCTION [id number] 08:08:00 Test Item Value Reference Range Interpretation [...] (test code = 26 U/L 6-55 347) Tobacco Hanger ID - PIAYA [id number] 06:30:00 Test Item Value Reference Range Interpretation [...] is2.5-3.5 for patients wiht mechanical heart valves.PROTHROMBIN [id number] 06:29:00 Test Item Value Reference Range Interpretation [...] is2.5-3.5 for patients wiht mechanical heart valves.POCT-GLUCOSE [id number] 22:00:00 Test Item Value Reference Range Interpretation Comments POC-GLUCOSE METER 208 mg/dL 70-110 H : TESTED A T [facility] 6720 (BEAKER) (test code = [employer] [facility], 153) [address]: Tobacco Hanger/Techni bhavya ID = [id number] for DANIELSJUDD PEREIRACA POCT-GLUCOSE [id number] 16:10:00 Test Item Value Reference Range Interpretation Comments POC-GLUCOSE METER 152 mg/dL 70-110 H : TESTED A T [facility] 6720 (BEAKER) (test code = [employer] [facility], 1538) [address]: Tobacco Hanger/Techni bhavya ID = [id number] for AUNDREA ALEXANDRA POCT-GLUCOSE [id number] 11:54:00 Test Item Value Reference Range Interpretation Comments POC-GLUCOSE METER 157 mg/dL 70-110 H : TESTED A T [facility] 6720 (FazlandAKER) (test code = [facility] [employer] [facility], 1538) [address]: Tobacco Hanger/Techni bhavya ID = [id number] for LORETA CASTRO CBC W/PLT COUNT & AUTO [id number] 09:49:00 Test Item Value Reference Range Interpretation [...] CONCENTRATION Adequate (CELLAVISION)(BEAKER) (test code = 3438) Tobacco Hanger ID - Brooke OverholtUser comments: Slide comments:RAD, CHEST, 1 VIEW, NON [id number] 09:38:00Reason for exam:->check for pacemakerShould this be [...] MDReport Verified Date/Time: 06/27/2020 09:38:45 Reading Location: [address] Body Reading Room POCT-GLUCOSE [id number] 07:15:00 Test Item Value Reference Range Interpretation Comments POC-GLUCOSE METER 130 mg/dL 70-110 H : [facility] (BEAKER) (test code = [facility], 1538) [address]: Tobacco Hanger/Techni bhavya ID = [id number] for ALMITA CUI [id number] 06:54:00 Test Item Value Reference Range Interpretation Comments MAGNESIUM (BEAKER) (test code = 1.4 mg/dL 1.6-2.6 L 627) Tobacco Hanger ID - PIAYA LBASIC METABOLIC [id number] 06:54:00 Test Item Value Reference Range Interpretation [...] S NOT APPLICABLE FOR DIALYSIS PATIEN TS. Tobacco Hanger ID - PIAYA LHEPATIC FUNCTION [id number] 06:54:00 Test Item Value Reference Range Interpretation [...] (test code = 33 U/L 6-55 347) Tobacco Hanger TERRI KEYES LTROPONIN [id number] 06:54:00 Test Item Value Reference Range Interpretation Comments TROPONIN I (ELKINAKER) (test code = 0.04 ng/mL 0.00-0.03 H [...] failure, acidosis, acute neurological disease, and persistent tachyarrhythmia.Tobacco Hanger ID Raulito KEYES LPROTHROMBIN TIME/[id number] 06:11:00 Test Item Value Reference Range Interpretation Comments PROTIME (RUFUS) (test code = 14.4 seconds 11.9-14.2 H 759) INR (BEAKER) (test code = 370) 1.2 <=5.9 Effective 04/23/2019: PT Reference Range ChangeNew: 11.9-14.2 Previous: 11.7- 14.7RECOMMENDED COUMADIN/WARFARIN INR THERAPY RANGESSTANDARD DOSE: 2.0-3.0 Includes: PROPHYLAXIS for venous thrombosis, systemic embolization; TREATMENT for venous thrombosis and/or pulmonary embolus.HIGH RISK: Target INR is2.5-3.5 for patients wiht mechanical heart valves.PT/[id number] 06:11:00 Test Item Value Reference Range Interpretation [...] INR is2.5-3.5 for patients wiht mechanical heart valves.DXRCAAUMZJ6366-07-90 11:32:000.4 [facility] TalhwlgHSUGEWAJAB2118-76-12 11:32:007.8[facility]annHEMATOLOGY 2020-01-27 11:32:001.7[facility] ZmieyylGXSHQPKWRM2383-75-71 11:32:000.9[facility] PqhmhazRGBWRJEDFO0465-48-68 11:32:000.1[facility] XkyviruQTIKZEOZAA1753-02-96 11:32:001+ *ABN*(01/27/20 5:32 AM)[facility] FuwhkzmZPKMNBASIW5337-13-80 11:32:001+ (01/27/20 5:32 AM)[facility]annCHEM BAYWF9890-29-77 11:32:57625Luvsnhdu Orestes CHEM GHRAD7839-36-15 11:32:0041[facility]annCHEM PJGJW4029-95-10 11:32:001.14 [facility]annCHE[facility] JZNJC3430-50-15 11:32:10899Adkjqhsn HermannCHEM PANEL 2020-01-27 11:32:004.5[facility]annCHEM DSSUK2502-84-02 11:32:98499Ycbckmiy HermannCHEM WDDUV4650-54-38 11:32:0026[facility]annCHEM TDWXJ2209-24-98 11:32:009.1[facility]annCHEM ZFARB5221-31-04 11:32:0011.5[facility]annCHEM SOEFP8301-30-10 11:32:0052[facility] UwmizrxACGVOEDEHO3268-71-22 11:32:0010.5 [facility] HsfoucgBHWDOEALDF3370-20-15 11:32:002.11[facility]annHEMATOLOGY 2020-01-27 11:32:007.4[facility] HudkrbrWWFKHSFZPS8103-30-36 11:32:0022.0[facility] JrhxrlzNAGRZMPBRW5063-48-21 11:32:66011.1[facility] LblycxtPTEGGXKPTU5123-63-59 11:32:00 Test Item Value Reference Range Interpretation Comments MCH (test code = MCH) 35.1 pg 27.0-31.0 [facility] HjsyhohIKFKEUTCTG1730-12-33 11:32:0033.7[facility]annHEMATOLOGY 2020-01-27 11:32:0017.9[facility] XlfnlbdLJAJDEOTEG6602-55-59 11:32:69087Vzpawjil VoszuqpHQPLGVZIVT4276-45-85 11:32:0011.0[facility] EpebeixFVTBEFQMTM8451-73-63 11:32:00Normal (01/27/20 5:32 AM)[facility] EygahqbURCVULIPQW9673-31-68 11:32:0074.0 [facility] JgbxepsDGACMZWUJY2820-12-28 11:32:0016.6[facility]annHEMATOLOGY 2020-01-27 11:32:008.3[facility] EqcvhdmCEGSMSOREC5349-75-03 11:32:000.7[facility] FlxmdeyTQWEOURUYA7640-53-62 03:11:000.37[facility]annCHEM JTVOG9041-13-45 11:54:33302Jwjlxicb HermannCHEM JFKEJ7730-90-23 11:54:0032[facility]annCHEM KEKEX6637-50-86 11:54:001.08[facility]annCHEM OUVAP2057-63-22 11:54:89069 [facility]annCHE[facility] FXDEC4832-21-88 11:54:004.7[facility]annCHEM PANEL 2020-01-26 11:54:37332Ftpsicob HermannCHEM JJCNP2722-41-16 11:54:0027[facility]annCHEM ECHBZ4053-23-15 11:54:009.1[facility]annCHEM ETIEP4807-45-75 11:54:009.7[facility]annCHEM XYMHU2299-11-08 11:54:0056[facility] Orestes AQLOAFIJPD8808-71-03 11:54:0074.1[facility] UjygsewKISDQDQGGQ1199-47-54 11:54:00 14.9[facility] LffczxbSGGHVPRYSK1367-25-17 11:54:009.2[facility]annHEMATOLOGY 2020-01-26 11:54:001.1[facility] FaimijoSRWINIQXNS1798-03-09 11:54:000.7[facility] UbfgyvwBKAHZYQWRW5424-55-99 11:54:008.3[facility] QptrhpvNZKYKWRRXU0994-80-23 11:54:001.7[facility] WytjnbpEIWGMVFXSQ6159-66-08 11:54:001.0[facility] Orestes LVRQBLOXOZ3393-02-76 11:54:000.1[facility] LoktskiOERBKLOYCB8676-62-30 11:54:000.1 [facility] OpajnpfJZJDHVUENT7739-47-74 11:54:001+ *ABN*(01/26/20 5:54 AM)[facility] ZinwggnUVEWFOPWBS8267-76-07 11:54:0011.2[facility] IehvqwfZDPHILEKDK7569-50-53 11:54:002.36[facility] ZwypqrtEZJMTCBFHI8868-86-50 11:54:008.2[facility] Jose Luis XRZBHGMTXT7347-22-44 11:54:0024.4[facility] YcvlmpeFCTQHSQGCT4603-07-65 11:54:00 103.5[facility] ExrotaxTJNZAQRHHA5087-47-67 11:54:00 Test Item Value Reference Range Interpretation Comments MCH (test code = MCH) 34.6 pg 27.0-31.0 [facility] JetwlvrRFRVWOTYNR6862-76-97 11:54:0033.4[facility] HermannHEMATOLOGY 2020-01-26 11:54:0017.5[facility] WltffqqWETVBEANGF9756-74-18 11:54:35623Nhvshsgi TgxqjutMQRLGYKAXU1267-02-42 11:54:0010.9[facility] GririasVPSOZHNJCL5715-84-25 10:15:0017.2[facility] UugjtplBEJPEVJEMN0524-87-26 10:15:74536Ecsnuyha Orestes MUOWLATWFU6681-41-57 10:15:0011.1[facility] GjewdlbGSUEUXTPRO0579-45-66 10:15:00 11.9[facility] GsyuxdjJUKDPOOPXT8788-11-38 10:15:0074.6[facility]annHEMATOLOGY 2020-01-25 10:15:0016.5[facility] BayncshYYMUNAJTNR9083-85-08 10:15:007.7[facility] YayncaoOKYDUXUHVT4488-31-23 10:15:000.7[facility] KkedcnbOTDEUBNLWC8870-74-64 10:15:000.5[facility] WaerkjzHSGQBOXYUS6452-67-14 10:15:008.9[facility] Orestes EJQJLJFZCV9985-13-97 10:15:002.0[facility] KyrntuvJXATUQKFJW5952-94-74 10:15:000.9 [facility] TcavymjWCTJLXJQDD1108-80-91 10:15:000.1[facility]annHEMATOLOGY 2020-01-25 10:15:000.1[facility] YktdyxxHXBMKZONLK2333-91-61 10:15:001+ *ABN*(01/25/20 4:15 AM)[facility]annCHEM ANYFC9735-23-31 10:15:32687Dgpeokoz HermannCHEM LFYLX5927-03-89 10:15:0039[facility] HermannCHEM STHTY4901-14-08 10:15:001.11[facility] HermannCHEM JYALA7199-19-04 10:15:70048Vhuxmbbe HermannCHEM HGTUX3663-52-43 10:15:004.7[facility] HermannCHEM JJYCR3367-82-02 10:15:08764 [facility]annCHE[facility] ORTQX4180-29-76 10:15:0025[facility]annCHEM PANEL 2020-01-25 10:15:009.2[facility] HermannCHEM NWNEN1766-87-16 10:15:0012.7[facility] HermannCHEM TUSRU2217-89-22 10:15:0054[facility] GosyxqzUQWDLBCMMD6546-93-65 10:15:002.32[facility] FownnrvTLFYCSCREB6636-83-30 10:15:008.0[facility] Orestes PMGNJYTYAA4867-44-97 10:15:0024.0[facility] ZbepjxjSGPXAFFTNB6239-78-64 10:15:00 103.4[facility] KkfjadwTUXMUORBTZ3378-38-11 10:15:00 Test Item Value Reference Range Interpretation Comments MCH (test code = MCH) 34.3 pg 27.0-31.0 [facility]rnwjckMPBBFVFNJC6850-32-22 10:15:0033.2[facility]annHEMATOLOGY 2020-01-24 10:05:000.1[facility] HermannCHEM PKMEA1389-50-71 09:55:002.3[facility] HermannCHEM LFZFE6629-65-52 16:37:003.0[facility] HermannCHEM BPJBW8406-93-92 16:37:001.8[facility] OfsovdsDIGRQJXLNS3055-22-55 16:37:00Normal (01/22/20 10:37 AM)[facility]ZejpyrgXWZXCYICXT0353-69-18 16:37:00 Test Item Value Reference Range Interpretation Comments ACT (TEG) Rapid (test code = ACT (TEG) 128 s 86-118 Rapid) [facility]CvcvadvYXCNBTFDMS1694-70-68 16:37:00 Test Item Value Reference Range Interpretation Comments Split Point Rapid (test code = Split 0.7 min Point Rapid) [facility]QdnqkkrZTYWDONBJO4294-50-01 16:37:00 Test Item Value Reference Range Interpretation Comments R-time Rapid (test code = R-time 0.8 min 0.4-0.7 Rapid) [facility] HospitalZyryqbjTCFNEBZXEC6301-62-77 16:37:00 Test Item Value Reference Range Interpretation Comments K-time Rapid (test code = K-time 1.2 min 0.6-2.3 Rapid) [facility] HospitalLuknxzmXIYKDEIISB9874-49-80 16:37:00 Test Item Value Reference Range Interpretation Comments Angle Rapid (test code = Angle 75 degrees 64-80 Rapid) [facility] HospitalBvcvzpqFBNQNIKXKD4926-26-33 16:37:00 Test Item Value Reference Range Interpretation Comments Max Amplitude Rapid (test code = Max 69 mm 52-71 Amplitude Rapid) [facility] HospitalBleliiaNZPTHGHEDM0272-09-61 16:37:0011.0[facility]annHEMATOLOGY 2020-01-22 16:37:000.7[facility] XAMYCZR0807-65-91 01:35:00 Negative (01/20/20 7:35 PM)[facility] HZHRP9972-35-05 01:35:003.5 [facility] AmericaLdatkarCKOXWGGAMX5106-57-75 01:35:00 Test Item Value Reference Range Interpretation Comments PT (test code = PT) 14.6 s 12.0-14.7 [facility] HospitalPnmrgiuSCPTTFJVFW8241-47-65 01:35:00 Test Item Value Reference Range Interpretation Comments INR (test code = INR) 1.13 1 0.85-1.17 [facility] HospitalIfxkyuoKHHVGZDTWA7359-20-56 01:35:00 Test Item Value Reference Range Interpretation Comments PTT (test code = PTT) 25.3 s 22.9-35.8 [facility] AmericaTubxaqiFQEPOQGLZH7713-92-15 01:35:00 Test Item Value Reference Range Interpretation Comments ACT (TEG) Rapid (test code = ACT (TEG) 82 s 86-118 Rapid) [facility]YznvehsSFNKKTVHAH6823-49-18 01:35:00 Test Item Value Reference Range Interpretation Comments Split Point Rapid (test code = Split 0.2 min Point Rapid) [facility] AmericaRsbkuqvDDFZBIUQKB6272-70-04 01:35:00 Test Item Value Reference Range Interpretation Comments R-time Rapid (test code = R-time 0.3 min 0.4-0.7 Rapid) [facility] AmericaAgxbzlqTGRSCBWQBI9859-32-93 01:35:00 Test Item Value Reference Range Interpretation Comments K-time Rapid (test code = K-time 1.2 min 0.6-2.3 Rapid) [facility] AmericaQuzehrzGWKSVKTRQD3752-22-32 01:35:00 Test Item Value Reference Range Interpretation Comments Angle Rapid (test code = Angle 77 degrees 64-80 Rapid) [facility] AmericaJrugcrjCFNXNZROTD5195-15-68 01:35:00 Test Item Value Reference Range Interpretation Comments Max Amplitude Rapid (test code = Max 62 mm 52-71 Amplitude Rapid) [facility] AmericaPmmrbzjVJNCIMDHVH8502-81-14 01:35:008.3[facility]annHEMATOLOGY 2020-01-21 01:35:000.0[facility] ZargbsvTKPRVGSNTF1107-02-54 01:35:00<3[facility] FfjshpuTXQTTCIVDX8600-25-35 01:35:00<0.003[facility] HermannPOCT-GLUCOSE METER 2018-12-27 13:28:00 Test Item Value Reference Range Interpretation Comments POC-GLUCOSE METER 153 mg/dL 70-[address] [facility] 6720 (BEAKER) (test code = [facility] Zbigniew [facility] 1538) [address] POCT-GLUCOSE [id number] 09:00:00 Test Item Value Reference Range Interpretation Comments POC-GLUCOSE METER 193 mg/dL 70-[address] [facility] 6720 (BEAKER) (test code = [facility] 1538) [address] GHUUFUTAY7033-18-84 06:55:00 Test Item Value Reference Range Interpretation Comments MAGNESIUM (BEAKER) (test code = 1.5 mg/dL 1.6-2.6 L 627) BASIC METABOLIC [id number] 06:55:00 Test Item Value Reference Range Interpretation [...] PATIEN TS. CBC W/PLT COUNT & AUTO AGFPIXTSGKQE7955-64-14 06:25:00 Test Item Value Reference Range Interpretation [...] PERCENT (BEAKER) (test code = 2801) POCT-GLUCOSE [id number] 23:25:00 Test Item Value Reference Range Interpretation Comments POC-GLUCOSE METER 171 mg/dL 70-110 H TESTED AT [place] [address] ([facility]) (test code = ALONDRA Coy [place] 1538) [address] POCT-GLUCOSE [id number] 18:08:00 Test Item Value Reference Range Interpretation Comments POC-GLUCOSE METER 138 mg/dL 70-110 H TESTED AT [place] [address] ([facility]) (test code = ALONDRA Coy [place] 1538) [address] POCT-GLUCOSE [id number] 13:05:00 Test Item Value Reference Range Interpretation Comments POC-GLUCOSE METER 140 mg/dL 70-110 H TESTED AT [place] [address] ([facility]) (test code = ALONDRA Coy [place] 1538) [address] POCT-GLUCOSE [id number] 08:57:00 Test Item Value Reference Range Interpretation Comments POC-GLUCOSE METER 180 mg/dL 70-110 H TESTED AT [place] [address] ([facility]) (test code = ALONDRA Coy [place] 1538) [address] POCT-GLUCOSE [id number] 21:30:00 Test Item Value Reference Range Interpretation Comments POC-GLUCOSE METER 212 mg/dL 70-110 H TESTED AT [place] [address] ([facility]) (test code = ALONDRA Coy [place] 1538) [address] POCT-GLUCOSE [id number] 17:26:00 Test Item Value Reference Range Interpretation Comments POC-GLUCOSE METER 117 mg/dL 70-110 H TESTED AT [place] [address] ([facility]) (test code = ALONDRA Coy [place] 1538) [address] POCT-GLUCOSE [id number] 13:12:00 Test Item Value Reference Range Interpretation Comments POC-GLUCOSE METER 166 mg/dL 70-110 H TESTED AT [place] [address] ([facility]) (test code = ALONDRA Coy [place] 1538) [address] URIC [id number] 13:02:00 Test Item Value Reference Range Interpretation Comments URIC ACID ([facility]) (test code = 5.9 mg/dL 2.6-7.2 773) POCT-GLUCOSE [id number] 09:40:00 Test Item Value Reference Range Interpretation Comments POC-GLUCOSE METER 175 mg/dL 70-110 H TESTED AT [place] [address] ([facility]) (test code = ALONDRA Coy [place] 1538) [address] POCT-GLUCOSE [id number] 08:10:00 Test Item Value Reference Range Interpretation Comments POC-GLUCOSE METER 175 mg/dL 70-[address] [facility] 6720 (BEAKER) (test code = ALONDRA [place] 1538) [address] [id number] 05:15:00 Test Item Value Reference Range Interpretation Comments MAGNESIUM (BEAKER) (test code = 1.8 mg/dL 1.6-2.6 627) BASIC METABOLIC [id number] 05:15:00 Test Item Value Reference Range Interpretation [...] PATIEN TS. CBC W/PLT COUNT & AUTO [id number] 04:56:00 Test Item Value Reference Range Interpretation [...] PERCENT (BEAKER) (test code = 2801) POCT-GLUCOSE [id number] 21:26:00 Test Item Value Reference Range Interpretation Comments POC-GLUCOSE METER 162 mg/dL 70-[address] [facility] 6720 ([facility]) (test code = ALONDRA Coy [facility] 1538) [address] POCT-GLUCOSE [id number] 19:38:00 Test Item Value Reference Range Interpretation Comments POC-GLUCOSE METER 194 mg/dL 70-[address] [facility] 6720 ([facility]) (test code = [facility] Zbigniew [facility] 1538) [address] POCT-GLUCOSE [id number] 13:05:00 Test Item Value Reference Range Interpretation Comments POC-GLUCOSE METER 177 mg/dL 70-110 H TESTED AT [place] [address] ([facility]) (test code = ALONDRA Coy [facility] 1538) [address] POCT-GLUCOSE [id number] 08:48:00 Test Item Value Reference Range Interpretation Comments POC-GLUCOSE METER 140 mg/dL 70-110 H TESTED AT [place] [address] ([facility]) (test code = ALONDRA Coy [facility] 1538) [address] POCT-GLUCOSE [id number] 21:57:00 Test Item Value Reference Range Interpretation Comments POC-GLUCOSE METER 160 mg/dL 70-110 H TESTED AT [place] [address] ([facility]) (test code = ALONDRA Coy [facility] 1538) [address] POCT-GLUCOSE [id number] 17:35:00 Test Item Value Reference Range Interpretation Comments POC-GLUCOSE METER 107 mg/dL 70-110 TESTED AT [place] [address] ([facility]) (test code = ALONDRA Coy [facility] 1538) [address] POCT-GLUCOSE [id number] 13:02:00 Test Item Value Reference Range Interpretation Comments POC-GLUCOSE METER 167 mg/dL 70-110 H TESTED AT [place] [address] ([facility]) (test code = RHETTKS Zbigniew [facility] 1538) [address] POCT-GLUCOSE [id number] 08:39:00 Test Item Value Reference Range Interpretation Comments POC-GLUCOSE METER 172 mg/dL 70-110 H TESTED AT [place] [address] ([facility]) (test code = [facility] Zbigniew [facility] 1538) [address] [id number] 06:10:00 Test Item Value Reference Range Interpretation Comments MAGNESIUM (BEAKER) (test code = 1.5 mg/dL 1.6-2.6 L 627) BASIC METABOLIC [id number] 06:10:00 Test Item Value Reference Range Interpretation [...] PATIEN TS. CBC W/PLT COUNT & AUTO [id number] 05:12:00 Test Item Value Reference Range Interpretation [...] PERCENT (BEAKER) (test code = 2801) POCT-GLUCOSE [id number] 22:03:00 Test Item Value Reference Range Interpretation Comments POC-GLUCOSE METER 208 mg/dL 70-110 H TESTED AT [place] [address] ([facility]) (test code = ALONDRA [place] 1538) [address] POCT-GLUCOSE [id number] 18:20:00 Test Item Value Reference Range Interpretation Comments POC-GLUCOSE METER 146 mg/dL 70-110 H TESTED AT [place] [address] ([facility]) (test code = ALONDRA [place] 1538) [address] POCT-GLUCOSE [id number] 12:53:00 Test Item Value Reference Range Interpretation Comments POC-GLUCOSE METER 168 mg/dL 70-110 H TESTED AT [place] [address] ([facility]) (test code = ALONDRA Coy [facility] 1538) [address] POCT-GLUCOSE [id number] 09:31:00 Test Item Value Reference Range Interpretation Comments POC-GLUCOSE METER 192 mg/dL 70-110 H TESTED AT [place] [address] ([facility]) (test code = ALONDRA Coy [facility] 1538) [address] [id number] 07:27:00 Test Item Value Reference Range Interpretation Comments MAGNESIUM (BEAKER) (test code = 1.6 mg/dL 1.6-2.6 627) BASIC METABOLIC [id number] 07:27:00 Test Item Value Reference Range Interpretation [...] PATIEN TS. CBC W/PLT COUNT & AUTO [id number] 06:06:00 Test Item Value Reference Range Interpretation [...] PERCENT (BEAKER) (test code = 2801) POCT-GLUCOSE [id number] 22:49:00 Test Item Value Reference Range Interpretation Comments POC-GLUCOSE METER 214 mg/dL 70-110 H TESTED AT [place] [address] ([facility]) (test code = ALONDRA Coy [facility] 1538) [address] POCT-GLUCOSE [id number] 22:48:00 Test Item Value Reference Range Interpretation Comments POC-GLUCOSE METER 247 mg/dL 70-110 H TESTED AT [place] [address] ([facility]) (test code = [facility] 1538) [address] POCT-GLUCOSE [id number] 17:37:00 Test Item Value Reference Range Interpretation Comments POC-GLUCOSE METER 185 mg/dL 70-110 H TESTED AT [place] [address] ([facility]) (test code = [facility] Zbigniew [facility] 1538) [address] [id number] 15:08:00 Test Item Value Reference Range Interpretation Comments MAGNESIUM (BEAKER) (test code = 1.7 mg/dL 1.6-2.6 627) BASIC METABOLIC [id number] 15:08:00 Test Item Value Reference Range Interpretation [...] BLOOD CELLS 1 /100 WBC 0-0 H ([facility]) (test code = 413) POCT-GLUCOSE [id number] 12:49:00 Test Item Value Reference Range Interpretation Comments POC-GLUCOSE METER 182 mg/dL 70-110 H TESTED AT [place] [address] ([facility]) (test code = ALONDRA Coy [place] 1538) [address] POCT-GLUCOSE [id number] 08:49:00 Test Item Value Reference Range Interpretation Comments POC-GLUCOSE METER 111 mg/dL 70-110 H TESTED AT [place] [address] ([facility]) (test code = ALONDRA Coy [place] 1538) [address] POCT-GLUCOSE [id number] 22:38:00 Test Item Value Reference Range Interpretation Comments POC-GLUCOSE METER 225 mg/dL 70-110 H TESTED AT [place] [address] ([facility]) (test code = ALONDRA Coy [facility] 1538) [address] POCT-GLUCOSE [id number] 17:12:00 Test Item Value Reference Range Interpretation Comments POC-GLUCOSE METER 194 mg/dL 70-110 H TESTED AT [place] [address] ([facility]) (test code = ALONDRA Coy [facility] 1538) [address] POCT-GLUCOSE [id number] 14:19:00 Test Item Value Reference Range Interpretation Comments POC-GLUCOSE METER 179 mg/dL 70-110 H TESTED AT [place] [address] ([facility]) (test code = ALONDRA Coy [facility] 1538) [address] RAD, CHEST, 1 VIEW, NON [id number] 12:01:00Reason for exam:->short of breathShould this be [...] Shipman Verified Date/Time: 12/20/2018 12:01:09 Reading Location: [facility] Radiology Reading Room POCT-GLUCOSE METER 2018-12-20 10:07:00 Test Item Value Reference Range Interpretation Comments POC-GLUCOSE METER 169 mg/dL 70-[address] [facility] 6720 (BEAKER) (test code = ALONDRA [place] 1538) [address] [id number] 08:40:00 Test Item Value Reference Range Interpretation Comments MAGNESIUM (BEAKER) (test code = 1.5 mg/dL 1.6-2.6 L 627) BASIC METABOLIC [id number] 08:40:00 Test Item Value Reference Range Interpretation [...] % 34.1-44.9 L 411) MEAN CORPUSCULAR VOLUME ([facility]) 99.4 fL 79.4-94.8 H (test code = 753) MEAN CORPUSCULAR HEMOGLOBIN 31.6 pg 25.6-32.2 ([facility]) (test code = 751) MEAN CORPUSCULAR HEMOGLOBIN CONC 31.8 GM/DL 32.2-35.5 L ([facility]) (test code = 752) RED CELL DISTRIBUTION WIDTH 17.1 % 11.7-14.4 H ([facility]) (test code = 412) PLATELET COUNT ([facility]) (test 110 K/CU MM 150-450 L code = 756) MEAN PLATELET VOLUME ([facility]) 13.1 fL 9.4-12.3 H (test code = 754) NUCLEATED RED BLOOD CELLS 0 /100 WBC 0-0 ([facility]) (test code = 413) POCT-GLUCOSE [id number] 22:11:00 Test Item Value Reference Range Interpretation Comments POC-GLUCOSE METER 207 mg/dL 70-110 H TESTED AT [place] [address] ([facility]) (test code = ALONDRA LARA MA 1538) [id number] POCT-GLUCOSE [id number] 17:51:00 Test Item Value Reference Range Interpretation Comments POC-GLUCOSE METER 197 mg/dL 70-110 H TESTED AT [place] [address] ([facility]) (test code = ALONDRA LARA [place] 1538) [id number] POCT-GLUCOSE [id number] 12:26:00 Test Item Value Reference Range Interpretation Comments POC-GLUCOSE METER 238 mg/dL 70-110 H TESTED AT [place] [address] ([facility]) (test code = ALONDRA LARA [place] 1538) [id number] POCT-GLUCOSE [id number] 12:00:00 Test Item Value Reference Range Interpretation Comments POC-GLUCOSE METER 207 mg/dL 70-110 H TESTED AT [place] [address] ([facility]) (test code = ALONDRA LARA [place] 1538) [id number] 07:04:00 Test Item Value Reference Range Interpretation Comments PHOSPHORUS (BEAKER) (test code = 2.9 mg/dL 2.3-4.7 604) [id number] 07:04:00 Test Item Value Reference Range Interpretation Comments MAGNESIUM (BEAKER) (test code = 1.8 mg/dL 1.6-2.6 627) BASIC METABOLIC [id number] 07:04:00 Test Item Value Reference Range Interpretation [...] L code = 756) MEAN PLATELET VOLUME ([facility]) 12.3 fL 9.4-12.3 (test code = 754) NUCLEATED RED BLOOD CELLS 0 /100 WBC 0-0 ([facility]) (test code = 413) POCT-GLUCOSE [id number] 21:38:00 Test Item Value Reference Range Interpretation Comments POC-GLUCOSE METER 204 mg/dL 70-110 H TESTED AT [place] [address] ([facility]) (test code = RHETTPREETHI Zbigniew [facility] 1538) [id number] POCT-GLUCOSE [id number] 12:18:00 Test Item Value Reference Range Interpretation Comments POC-GLUCOSE METER 158 mg/dL 70-110 H TESTED AT [place] [address] ([facility]) (test code = [facility]ign[facility] 1538) [id number] POCT-GLUCOSE [id number] 09:50:00 Test Item Value Reference Range Interpretation Comments POC-GLUCOSE METER 153 mg/dL 70-110 H TESTED AT [place] [address] ([facility]) (test code = [facility]ign[facility] 1538) [id number] POCT-GLUCOSE [id number] 09:50:00 Test Item Value Reference Range Interpretation Comments POC-GLUCOSE METER 132 mg/dL 70-110 H TESTED AT [place] [address] ([facility]) (test code = ALONDRA Coy [facility] 1538) [id number] POCT-GLUCOSE [id number] 07:48:00 Test Item Value Reference Range Interpretation Comments POC-GLUCOSE METER 98 mg/dL 70-110 TESTED AT [place] [address] ([facility]) (test code = [facility] Zbigniew [facility] [id number] 1538) POCT-GLUCOSE [id number] 07:48:00 Test Item Value Reference Range Interpretation Comments POC-GLUCOSE METER 101 mg/dL 70-110 TESTED AT [place] [address] ([facility]) (test code = [facility] Coy [facility] 1538) [address] [id number] 05:44:00 Test Item Value Reference Range Interpretation Comments PHOSPHORUS ([facility]) (test code = 3.7 mg/dL 2.3-4.7 604) [id number] 05:44:00 Test Item Value Reference Range Interpretation Comments MAGNESIUM ([facility]) (test code = 2.4 mg/dL 1.6-2.6 627) BASIC METABOLIC [id number] 05:44:00 Test Item Value Reference Range Interpretation [...] I S NOT APPLICABLE FOR DIALYSIS PATIMELISSA TS. [id number] 05:26:00 Test Item Value Reference Range Interpretation [...] (BEAKER) (test code = 413) BLOOD GAS, [id number] 05:10:00 Test Item Value Reference Range Interpretation [...] 60.0 % RAD, CHEST, 1 VIEW, NON [id number] 04:43:00while patient is intubated or has chest [...] effusion. There is no pneumothorax. Signed: Nicolette [place] Verified Date/Time: 12/18/2018 04:43:02 Reading Location: [address] Reading Room BLOOD GAS, [id number] 02:48:00 Test Item Value Reference Range Interpretation [...] (BEAKER) (test code = 1819) 40.0 % [id number] 23:12:00 Test Item Value Reference Range Interpretation Comments MAGNESIUM (BEAKER) (test code = 2.4 mg/dL 1.6-2.6 627) Check Serum Magnesium level 2 hours after IV magnesium replacement.BLOOD GAS, [id number] 23:00:00 Test Item Value Reference Range Interpretation [...] 1819) 40.0 % LACTIC ACID, ARTERIAL, WHOLE [id number] 20:01:00 Test Item Value Reference Range Interpretation Comments LACTATE BLOOD ARTERIAL (2) 1.5 mmol/L 0.5-2.2 (BEAKER) (test code = 2874) [id number] 19:59:00 Test Item Value Reference Range Interpretation Comments MAGNESIUM (BEAKER) (test code = 1.7 mg/dL 1.6-2.6 627) SODIUM NA-STAT [id number] 19:40:00 Test Item Value Reference Range Interpretation Comments SODIUM (BEAKER) (test code = 381) 139 meq/L 135-148 POTASSIUM-STAT [id number] 19:40:00 Test Item Value Reference Range Interpretation Comments POTASSIUM (BEAKER) (test code = 4.2 meq/L 3.6-5.5 379) OXYGEN SATURATION, [id number] 19:40:00 Test Item Value Reference Range Interpretation Comments O2 SATURATION (MEASURED) (BEAKER) 61.6 % (test code = 1455) CALCIUM, [id number] 19:40:00 Test Item Value Reference Range Interpretation Comments CALCIUM IONIZED (BEAKER) (test 1.12 mmol/L 1.12-1.27 code = 698) PH, BLOOD (BEAKER) (test code = 7.48 1810) BLOOD GAS, [id number] 19:40:00 Test Item Value Reference Range Interpretation [...] (test code = 1819) 40.0 % GLUCOSE-STAT [id number] 19:40:00 Test Item Value Reference Range Interpretation Comments GLUCOSE RANDOM (BEAKER) (test code 136 mg/dL 70-110 H = 652) HGB/HCT (H&H) - STAT [id number] 19:40:00 Test Item Value Reference Range Interpretation Comments HEMOGLOBIN (BEAKER) (test code = 10.8 g/dL 12.0-15.0 L 410) HEMATOCRIT (BEAKER) (test code = 32.0 % 36.0-45.0 L 411) POCT-GLUCOSE [id number] 18:42:00 Test Item Value Reference Range Interpretation Comments POC-GLUCOSE METER 138 mg/dL 70-[address] [facility] 67 (BEAKER) (test code = ALONDRA Coy [place] 1538) [address] POCT-GLUCOSE [id number] 17:37:00 Test Item Value Reference Range Interpretation Comments POC-GLUCOSE METER 147 mg/dL 70-110 H TESTED AT [place] [address] ([facility]) (test code = ALONDRA Coy [place] 1538) [address] CBC W/PLT COUNT & AUTO [id number] 16:05:00 Test Item Value Reference Range Interpretation [...] (BEAKER) (test code = 1+ few 961) [id number] 15:49:00 Test Item Value Reference Range Interpretation Comments ACTIVATED CLOTTING TIME 103 sec TEST ED AT [place] [address] (BEAKER) (test code = AL[place]DRA [place] 441) [address] [id number] 15:49:00 Test Item Value Reference Range Interpretation Comments ACTIVATED CLOTTING TIME 400 sec TEST ED AT [place] [address] (BEAKER) (test code = ALONDRA Coy [place] 441) [address] [id number] 15:49:00 Test Item Value Reference Range Interpretation Comments ACTIVATED CLOTTING TIME 373 sec TEST ED AT [place] [address] ([facility]) (test code = AL[place]DRA [place] 441) [address] [id number] 15:49:00 Test Item Value Reference Range Interpretation Comments ACTIVATED CLOTTING TIME 450 sec TEST ED AT [place] [address] ([facility]) (test code = [place]DRA [place] 441) [address] [id number] 15:49:00 Test Item Value Reference Range Interpretation Comments ACTIVATED CLOTTING TIME 389 sec TEST ED AT [place] [address] ([facility]) (test code = ALONDRA Coy [place] 441) [address] [id number] 15:49:00 Test Item Value Reference Range Interpretation Comments ACTIVATED CLOTTING TIME 340 sec TEST ED AT [place] [address] ([facility]) (test code = ALONDRA Coy [facility] 441) [address] POCT-GLUCOSE [id number] 15:27:00 Test Item Value Reference Range Interpretation Comments POC-GLUCOSE METER 131 mg/dL 70-110 H TESTED AT [place] [address] ([facility]) (test code = ALONDRA Coy [facility] 1538) [address] LACTIC ACID, ARTERIAL, WHOLE [id number] 15:19:00 Test Item Value Reference Range Interpretation Comments LACTATE BLOOD ARTERIAL (2) 2.3 mmol/L 0.5-2.2 H ([facility]) (test code = 2874) [id number] 15:16:00 Test Item Value Reference Range Interpretation Comments MAGNESIUM (BEAKER) (test code = 2.8 mg/dL 1.6-2.6 H 627) OXYGEN SATURATION, [id number] 14:57:00 Test Item Value Reference Range Interpretation Comments O2 SATURATION (MEASURED) (BEAKER) 51.5 % (test code = 1455) SODIUM NA-STAT [id number] 14:56:00 Test Item Value Reference Range Interpretation Comments SODIUM (BEAKER) (test code = 381) 140 meq/L 135-148 POTASSIUM-STAT [id number] 14:56:00 Test Item Value Reference Range Interpretation Comments POTASSIUM (BEAKER) (test code = 3.9 meq/L 3.6-5.5 379) HGB/HCT (H&H) - STAT [id number] 14:56:00 Test Item Value Reference Range Interpretation Comments HEMOGLOBIN (BEAKER) (test code = 12.3 g/dL 12.0-15.0 410) HEMATOCRIT (BEAKER) (test code = 36.0 % 36.0-45.0 411) BLOOD GAS, [id number] 14:56:00 Test Item Value Reference Range Interpretation [...] (test code = 1819) 60.0 % GLUCOSE-STAT [id number] 14:56:00 Test Item Value Reference Range Interpretation Comments GLUCOSE RANDOM (BEAKER) (test code 141 mg/dL 70-110 H = 652) BLOOD GAS, [id number] 13:28:00 Test Item Value Reference Range Interpretation [...] 60.0 % RAD, CHEST, 1 VIEW, NON [id number] 12:53:00Reason for exam:->PostopFINAL REPORT Chest x-ray Clinical [...] Tyler Verified Date/Time: 12/17/2018 12:53:38 Reading Location: [address] Consult Reading Room Electronically signed by: RISA TYLER M.D. on 12/17 12:53 PMPROTHROMBIN [id number] 12:37:00 Test Item Value Reference Range Interpretation Comments PROTIME (BEAKER) (test code = 17.4 seconds 11.7-14.7 H 759) INR (BEAKER) (test code = 370) 1.4 <=5.9 RECOMMENDED COUMADIN/WARFARIN INR THERAPY RANGESSTANDARD DOSE: 2.0 - 3.0 Includes: PROPHYLAXIS forvenous thrombosis, systemic embolization; TREATMENT for venous thrombosis and/or pulmonary embolus.HIGH RISK: Target INR is 2.5-3.5 for patients with mechanical heart valves.[id number] 12:37:00 Test Item Value Reference Range Interpretation Comments FIBRINOGEN LEVEL (BEAKER) (test 238 mg/dl 225-434 code = 658) [id number] 12:37:00 Test Item Value Reference Range Interpretation Comments PARTIAL THROMBOPLASTIN TIME 33.3 seconds 22.5-36.0 (BEAKER) (test code = 760) [id number] 12:37:00 Test Item Value Reference Range Interpretation Comments MAGNESIUM (BEAKER) (test code = 1.4 mg/dL 1.6-2.6 L 627) BASIC METABOLIC [id number] 12:37:00 Test Item Value Reference Range Interpretation [...] DIALYSIS PATIEN TS. LACTIC ACID, ARTERIAL, WHOLE [id number] 12:35:00 Test Item Value Reference Range Interpretation Comments LACTATE BLOOD ARTERIAL (2) 1.5 mmol/L 0.5-2.2 (BEAKER) (test code = 2874) CALCIUM, [id number] 12:32:00 Test Item Value Reference Range Interpretation Comments CALCIUM IONIZED (BEAKER) (test 1.19 mmol/L 1.12-1.27 code = 698) PH, BLOOD (BEAKER) (test code = 7.28 1810) OXYGEN SATURATION, [id number] 12:32:00 Test Item Value Reference Range Interpretation Comments O2 SATURATION (MEASURED) (BEAKER) 49.7 % (test code = 1455) BLOOD GAS, [id number] 12:31:00 Test Item Value Reference Range Interpretation [...] code = 1819) 60.0 % BLOOD GAS, [id number] 10:54:00 Test Item Value Reference Range Interpretation [...] (test code = 1819) 100.0 % GLUCOSE-STAT [id number] 10:54:00 Test Item Value Reference Range Interpretation Comments GLUCOSE RANDOM (BEAKER) (test code 193 mg/dL 70-110 H = 652) CALCIUM, [id number] 10:54:00 Test Item Value Reference Range Interpretation Comments CALCIUM IONIZED (BEAKER) (test 1.08 mmol/L 1.12-1.27 L code = 698) PH, BLOOD (BEAKER) (test code = 7.34 1810) SODIUM NA-STAT [id number] 10:53:00 Test Item Value Reference Range Interpretation Comments SODIUM (BEAKER) (test code = 381) 138 meq/L 135-148 POTASSIUM-STAT [id number] 10:53:00 Test Item Value Reference Range Interpretation Comments POTASSIUM (BEAKER) (test code = 4.4 meq/L 3.6-5.5 379) HGB/HCT (H&H) - STAT [id number] 10:53:00 Test Item Value Reference Range Interpretation Comments HEMOGLOBIN (BEAKER) (test code = 12.3 g/dL 12.0-15.0 410) HEMATOCRIT (BEAKER) (test code = 36.0 % 36.0-45.0 411) CALCIUM, [id number] 10:30:00 Test Item Value Reference Range Interpretation Comments CALCIUM IONIZED (BEAKER) (test 1.16 mmol/L 1.12-1.27 code = 698) PH, BLOOD (BEAKER) (test code = 7.34 1810) BLOOD GAS, [id number] 10:25:00 Test Item Value Reference Range Interpretation [...] (test code = 1819) 100.0 % GLUCOSE-STAT [id number] 10:25:00 Test Item Value Reference Range Interpretation Comments GLUCOSE RANDOM (BEAKER) (test code 223 mg/dL 70-110 H = 652) HGB/HCT (H&H) - STAT [id number] 10:25:00 Test Item Value Reference Range Interpretation Comments HEMOGLOBIN (BEAKER) (test code = 13.4 g/dL 12.0-15.0 410) HEMATOCRIT (BEAKER) (test code = 39.0 % 36.0-45.0 411) SODIUM NA-STAT [id number] 10:24:00 Test Item Value Reference Range Interpretation Comments SODIUM (BEAKER) (test code = 381) 136 meq/L 135-148 POTASSIUM-STAT [id number] 10:24:00 Test Item Value Reference Range Interpretation Comments POTASSIUM (BEAKER) (test code = 5.0 meq/L 3.6-5.5 379) POTASSIUM-STAT [id number] 09:51:00 Test Item Value Reference Range Interpretation Comments POTASSIUM (BEAKER) (test code = 6.4 meq/L 3.6-5.5 HH 379) BLOOD GAS, [id number] 09:45:00 Test Item Value Reference Range Interpretation [...] (test code = 1819) 70.0 % GLUCOSE-STAT [id number] 09:45:00 Test Item Value Reference Range Interpretation Comments GLUCOSE RANDOM (BEAKER) (test code 235 mg/dL 70-110 H = 652) HGB/HCT (H&H) - STAT [id number] 09:45:00 Test Item Value Reference Range Interpretation Comments HEMOGLOBIN (BEAKER) (test code = 9.0 g/dL 12.0-15.0 L 410) HEMATOCRIT (BEAKER) (test code = 26.0 % 36.0-45.0 L 411) SODIUM NA-STAT [id number] 09:45:00 Test Item Value Reference Range Interpretation Comments SODIUM (BEAKER) (test code = 381) 134 meq/L 135-148 L HGB/HCT (H&H) - STAT [id number] 09:23:00 Test Item Value Reference Range Interpretation Comments HEMOGLOBIN (BEAKER) (test code = 5.3 g/dL 12.0-15.0 LL 410) HEMATOCRIT (BEAKER) (test code = 16.0 % 36.0-45.0 L 411) SODIUM NA-STAT [id number] 09:16:00 Test Item Value Reference Range Interpretation Comments SODIUM (BEAKER) (test code = 381) 130 meq/L 135-148 L POTASSIUM-STAT [id number] 09:16:00 Test Item Value Reference Range Interpretation Comments POTASSIUM (BEAKER) (test code = 5.7 meq/L 3.6-5.5 H 379) BLOOD GAS, [id number] 09:15:00 Test Item Value Reference Range Interpretation [...] (test code = 1819) 65.0 % GLUCOSE-STAT [id number] 09:15:00 Test Item Value Reference Range Interpretation Comments GLUCOSE RANDOM (BEAKER) (test code 206 mg/dL 70-110 H = 652) BLOOD GAS, [id number] 08:17:00 Test Item Value Reference Range Interpretation [...] (test code = 1819) 100.0 % GLUCOSE-STAT [id number] 08:17:00 Test Item Value Reference Range Interpretation Comments GLUCOSE RANDOM (BEAKER) (test code 124 mg/dL 70-110 H = 652) HGB/HCT (H&H) - STAT [id number] 08:17:00 Test Item Value Reference Range Interpretation Comments HEMOGLOBIN (BEAKER) (test code = 10.0 g/dL 12.0-15.0 L 410) HEMATOCRIT (BEAKER) (test code = 29.0 % 36.0-45.0 L 411) CALCIUM, [id number] 08:17:00 Test Item Value Reference Range Interpretation Comments CALCIUM IONIZED (BEAKER) (test 1.10 mmol/L 1.12-1.27 L code = 698) PH, BLOOD (BEAKER) (test code = 7.47 1810) SODIUM NA-STAT [id number] 08:16:00 Test Item Value Reference Range Interpretation Comments SODIUM (BEAKER) (test code = 381) 138 meq/L 135-148 POTASSIUM-STAT [id number] 08:16:00 Test Item Value Reference Range Interpretation Comments POTASSIUM (BEAKER) (test code = 4.2 meq/L 3.6-5.5 379) [id number] 06:01:00 Test Item Value Reference Range Interpretation Comments MAGNESIUM (BEAKER) (test code = 1.5 mg/dL 1.6-2.6 L 627) BASIC METABOLIC [id number] 06:01:00 Test Item Value Reference Range Interpretation [...] I S NOT APPLICABLE FOR DIALYSIS PATIEN [id number] 05:50:00 Test Item Value Reference Range Interpretation Comments PARTIAL THROMBOPLASTIN TIME 81.2 seconds 22.5-36.0 H (BEAKER) (test code = 760) PROTHROMBIN [id number] 05:49:00 Test Item Value Reference Range Interpretation [...] 0-0 (BEAKER) (test code = 413) POCT-GLUCOSE [id number] 21:31:00 Test Item Value Reference Range Interpretation Comments POC-GLUCOSE METER 123 mg/dL 70-110 H TESTED AT [place] [address] (BEAKER) (test code = ALONDRA Coy [facility] 1538) [address] POCT-GLUCOSE [id number] 17:23:00 Test Item Value Reference Range Interpretation Comments POC-GLUCOSE METER 121 mg/dL 70-110 H TESTED AT [place] [address] ([facility]) (test code = [facility] 1538) [address] POCT-GLUCOSE [id number] 12:37:00 Test Item Value Reference Range Interpretation Comments POC-GLUCOSE METER 167 mg/dL 70-110 H TESTED AT [place] [address] ([facility]) (test code = [facility] 1538) [address] POCT-GLUCOSE [id number] 09:52:00 Test Item Value Reference Range Interpretation Comments POC-GLUCOSE METER 227 mg/dL 70-110 H TESTED AT [place] [address] ([facility]) (test code = [facility] 1538) [address] [id number] 04:44:00 Test Item Value Reference Range Interpretation Comments PARTIAL THROMBOPLASTIN TIME 66.8 seconds 22.5-36.0 H (BEAKER) (test code = 760) [id number] 04:42:00 Test Item Value Reference Range Interpretation Comments MAGNESIUM (BEAKER) (test code = 1.7 mg/dL 1.6-2.6 627) BASIC METABOLIC [id number] 04:42:00 Test Item Value Reference Range Interpretation [...] WBC 0-0 (BEAKER) (test code = 413) [id number] 23:39:00 Test Item Value Reference Range Interpretation Comments PARTIAL THROMBOPLASTIN TIME 70.2 seconds 22.5-36.0 H (BEAKER) (test code = 760) POCT-GLUCOSE [id number] 21:47:00 Test Item Value Reference Range Interpretation Comments POC-GLUCOSE METER 145 mg/dL 70-110 H TESTED AT [place] [address] (BEAKER) (test code = ALONDRA Coy [place] 1538) [address] POCT-GLUCOSE [id number] 18:36:00 Test Item Value Reference Range Interpretation Comments POC-GLUCOSE METER 143 mg/dL 70-110 H TESTED AT [place] [address] (BEAKER) (test code = ALONDRA Coy [place] 1538) [address] [id number] 17:07:00 Test Item Value Reference Range Interpretation Comments PARTIAL THROMBOPLASTIN TIME 65.6 seconds 22.5-36.0 H (BEAKER) (test code = 760) [id number] 09:50:00 Test Item Value Reference Range Interpretation Comments PARTIAL THROMBOPLASTIN TIME 58.1 seconds 22.5-36.0 H (BEAKER) (test code = 760) POCT-GLUCOSE [id number] 09:08:00 Test Item Value Reference Range Interpretation Comments POC-GLUCOSE METER 164 mg/dL 70-110 H TESTED AT [place] [address] ([facility]) (test code = ALONDRA Coy [facility] 1538) [address] [id number] 04:08:00 Test Item Value Reference Range Interpretation Comments PARTIAL THROMBOPLASTIN TIME 79.3 seconds 22.5-36.0 H (BEAKER) (test code = 760) [id number] 04:05:00 Test Item Value Reference Range Interpretation Comments MAGNESIUM (BEAKER) (test code = 1.5 mg/dL 1.6-2.6 L 627) BASIC METABOLIC [id number] 04:05:00 Test Item Value Reference Range Interpretation [...] WBC 0-0 (BEAKER) (test code = 413) [id number] 21:53:00 Test Item Value Reference Range Interpretation Comments PARTIAL THROMBOPLASTIN TIME 112.2 seconds 22.5-36.0 H (BEAKER) (test code = 760) POCT-GLUCOSE [id number] 20:34:00 Test Item Value Reference Range Interpretation Comments POC-GLUCOSE METER 125 mg/dL 70-[address] [facility] 6720 (AKER) (test code = ALONDRA CRISOSTOMO 1538) [address] OCCULT BLOOD, [id number] 14:49:00 Test Item Value Reference Range Interpretation Comments FECAL OCCULT BLOOD (BEAKER) (test Negative Negative code = 618) POCT-GLUCOSE [id number] 14:43:00 Test Item Value Reference Range Interpretation Comments POC-GLUCOSE METER 128 mg/dL 70-[address] [facility] 6720 (BEAKER) (test code = ALONDRA [place] 1538) [address] [id number] 14:43:00 Test Item Value Reference Range Interpretation Comments PARTIAL THROMBOPLASTIN TIME 104.0 seconds 22.5-36.0 H (BEAKER) (test code = 760) C. DIFFICILE GDH [id number] 09:11:00 Test Item Value Reference Range Interpretation Comments CDT TOXIN (test code Negative Negative = [id number]) CDT GDH ANTIGEN Positive Negative A C. difficile present but (test code = toxin not detec dmitry. [id number]) Indicates colon ization with non-toxige sabrina strain or level of tox in below detectable leve ls. No need for enteri c isolation. [place] atment is rarely needed ( only when strong clinical suspicion for Clostridium difficile infection) Testing performed by [employer] Rapid Cassette Assay. For GDH, published sensitivity of the assay is 98.7% compared to cytotoxicity testing. For Toxin AB, published sensitivity is 87.8% and specificity 99.4% compared to cytotoxicity testing.Verification of kit performance was done by the [facility] Microbiology Lab prior to clinical use.[id number] 07:50:00 Test Item Value Reference Range Interpretation Comments MAGNESIUM (BEAKER) 1.8 mg/dL 1.6-2.6 Specimen slightly (test code = 627) hemolyzed BASIC METABOLIC [id number] 07:50:00 Test Item Value Reference Range Interpretation [...] NOT APPLICABLE FOR DIALYSIS PATIEN TS. POCT-GLUCOSE [id number] 07:49:00 Test Item Value Reference Range Interpretation Comments POC-GLUCOSE METER 131 mg/dL 70-[address] [facility] 6720 (BEAKER) (test code = ALONDRA [place] 1538) [address] [id number] 07:18:00 Test Item Value Reference Range Interpretation [...] WBC 0-0 (BEAKER) (test code = 413) [id number] 21:36:00 Test Item Value Reference Range Interpretation Comments PARTIAL THROMBOPLASTIN TIME 73.2 seconds 22.5-36.0 H (BEAKER) (test code = 760) POCT-GLUCOSE [id number] 21:14:00 Test Item Value Reference Range Interpretation Comments POC-GLUCOSE METER 116 mg/dL 70-110 H TESTED AT [place] [address] ([facility]) (test code = ALONDRA Coy [facility] 1538) [address] POCT-GLUCOSE [id number] 18:13:00 Test Item Value Reference Range Interpretation Comments POC-GLUCOSE METER 150 mg/dL 70-110 H TESTED AT [place] [address] ([facility]) (test code = ALONDRA Coy [facility] 1538) [address] [id number] 14:26:00 Test Item Value Reference Range Interpretation Comments PARTIAL THROMBOPLASTIN TIME 87.5 seconds 22.5-36.0 H (BEAKER) (test code = 760) POCT-GLUCOSE [id number] 12:54:00 Test Item Value Reference Range Interpretation Comments POC-GLUCOSE METER 140 mg/dL 70-110 H TESTED AT [place] [address] ([facility]) (test code = ALONDRA Coy [place] 1538) [address] POCT-GLUCOSE [id number] 09:38:00 Test Item Value Reference Range Interpretation Comments POC-GLUCOSE METER 148 mg/dL 70-110 H TESTED AT [place] [address] ([facility]) (test code = [facility] [employer] [facility] 1538) [address] [id number] 06:53:00 Test Item Value Reference Range Interpretation Comments MAGNESIUM (BEAKER) (test code = 2.0 mg/dL 1.6-2.6 627) BASIC METABOLIC [id number] 06:53:00 Test Item Value Reference Range Interpretation [...] S NOT APPLICABLE FOR DIALYSIS PATIEN ANGE. [id number] 06:39:00 Test Item Value Reference Range Interpretation [...] 0-0 (BEAKER) (test code = 413) POCT-GLUCOSE [id number] 23:24:00 Test Item Value Reference Range Interpretation Comments POC-GLUCOSE METER 157 mg/dL 70-[address] [facility] 67 (BEAKER) (test code = ALONDRA [place] 1538) [address] POCT-GLUCOSE [id number] 18:13:00 Test Item Value Reference Range Interpretation Comments POC-GLUCOSE METER 135 mg/dL 70-110 H TESTED AT [place] [address] (BEAKER) (test code = ALONDRA [place] 1538) [address] POCT-GLUCOSE [id number] 13:04:00 Test Item Value Reference Range Interpretation Comments POC-GLUCOSE METER 147 mg/dL 70-110 H TESTED AT [place] [address] ([facility]) (test code = ALONDRA Coy [place] 1538) [address] [id number] 12:49:00 Test Item Value Reference Range Interpretation Comments PARTIAL THROMBOPLASTIN TIME 92.6 seconds 22.5-36.0 H (BEAKER) (test code = 760) POCT-GLUCOSE [id number] 08:55:00 Test Item Value Reference Range Interpretation Comments POC-GLUCOSE METER 144 mg/dL 70-110 H TESTED AT [place] [address] ([facility]) (test code = ALONDRA Coy [place] 1538) [address] [id number] 05:30:00 Test Item Value Reference Range Interpretation Comments PARTIAL THROMBOPLASTIN TIME 84.5 seconds 22.5-36.0 H (BEAKER) (test code = 760) [id number] 02:15:00 Test Item Value Reference Range Interpretation Comments PARTIAL THROMBOPLASTIN TIME 160.4 seconds 22.5-36.0 HH (BEAKER) (test code = 760) [id number] 01:51:00 Test Item Value Reference Range Interpretation Comments MAGNESIUM (BEAKER) (test code = 1.7 mg/dL 1.6-2.6 627) BASIC METABOLIC [id number] 01:51:00 Test Item Value Reference Range Interpretation [...] 0-0 (BEAKER) (test code = 413) POCT-GLUCOSE [id number] 18:06:00 Test Item Value Reference Range Interpretation Comments POC-GLUCOSE METER 110 mg/dL 70-110 TESTED AT [place] [address] ([facility]) (test code = [place]A [place] 1538) [id number] 17:35:00 Test Item Value Reference Range Interpretation Comments PARTIAL THROMBOPLASTIN TIME 49.2 seconds 22.5-36.0 H ([facility]) (test code = 760) POCT-GLUCOSE [id number] 14:02:00 Test Item Value Reference Range Interpretation Comments POC-GLUCOSE METER 215 mg/dL 70-110 H TESTED AT [place] [address] ([facility]) (test code = ALONDRA Coy [place] 1538) [id number] 11:09:00 Test Item Value Reference Range Interpretation Comments PARTIAL THROMBOPLASTIN TIME 52.4 seconds 22.5-36.0 H ([facility]) (test code = 760) Prior to initiating heparinPOCT-GLUCOSE [id number] 08:34:00 Test Item Value Reference Range Interpretation Comments POC-GLUCOSE METER 121 mg/dL 70-110 H TESTED AT [place] [address] ([facility]) (test code = ALONDRA Coy [facility] 1538) [id number] POCT-GLUCOSE [id number] 21:46:00 Test Item Value Reference Range Interpretation Comments POC-GLUCOSE METER 132 mg/dL 70-110 H TESTED AT [place] [address] ([facility]) (test code = ALONDRA Coy [facility] 1538) 78795 POCT-GLUCOSE [id number] 17:30:00 Test Item Value Reference Range Interpretation Comments POC-GLUCOSE METER 146 mg/dL 70-110 H TESTED AT [place] [address] ([facility]) (test code = ALONDRA Coy [facility] 1538) 65191 POCT-GLUCOSE [id number] 13:44:00 Test Item Value Reference Range Interpretation Comments POC-GLUCOSE METER 124 mg/dL 70-110 H TESTED AT [place] [address] ([facility]) (test code = ALONDRA Coy [place] 1538) 58238 POCT-GLUCOSE [id number] 09:03:00 Test Item Value Reference Range Interpretation Comments POC-GLUCOSE METER 136 mg/dL 70-110 H TESTED AT [place] [address] ([facility]) (test code = RHETTPREETHI Zbigniew [facility] 1538) 48643 CBC W/PLT COUNT & AUTO [id number] 07:24:00 Test Item Value Reference Range Interpretation [...] 0-1 PERCENT (BEAKER) (test code = 2801) [id number] 06:43:00 Test Item Value Reference Range Interpretation Comments MAGNESIUM (BEAKER) (test code = 1.4 mg/dL 1.6-2.6 L 627) BASIC METABOLIC [id number] 06:43:00 Test Item Value Reference Range Interpretation [...] S NOT APPLICABLE FOR DIALYSIS PATIEN TS. [id number] 06:36:00 Test Item Value Reference Range Interpretation Comments PARTIAL THROMBOPLASTIN TIME 70.2 seconds 22.5-36.0 H (BEAKER) (test code = 760) TROPONIN [id number] 00:58:00 Test Item Value Reference Range Interpretation [...] failure, acidosis, acute neurological disease, and persistent tachyarrhythmia.[id number] 00:23:00 Test Item Value Reference Range Interpretation Comments PARTIAL THROMBOPLASTIN TIME 46.8 seconds 22.5-36.0 H ([facility]) (test code = 760) Prior to initiating heparinPOCT-GLUCOSE [id number] 23:28:00 Test Item Value Reference Range Interpretation Comments POC-GLUCOSE METER 96 mg/dL 70-110 TESTED AT [place] [address] ([facility]) (test code = [facility] [address] 1538) TROPONIN [id number] 18:41:00 Test Item Value Reference Range Interpretation Comments TROPONIN I ([facility]) (test code = 0.02 [...] acidosis, acute neurological disease, and persistent tachyarrhythmia.POCT-GLUCOSE [id number] 17:53:00 Test Item Value Reference Range Interpretation Comments POC-GLUCOSE METER 132 mg/dL 70-110 H TESTED AT [place] [address] ([facility]) (test code = [facility] 1538) 37712 POCT-GLUCOSE [id number] 14:30:00 Test Item Value Reference Range Interpretation Comments POC-GLUCOSE METER 179 mg/dL 70-110 H TESTED AT [place] [address] ([facility]) (test code = [facility] 1538) 08468 TROPONIN [id number] 12:32:00 Test Item Value Reference Range Interpretation Comments TROPONIN I ([facility]) (test code = 0.03 [...] failure, acidosis, acute neurological disease, and persistent tachyarrhythmia.[id number] 12:22:00 Test Item Value Reference Range Interpretation Comments MAGNESIUM (BEAKER) (test code = 1.1 mg/dL 1.6-2.6 L 627) BASIC METABOLIC [id number] 12:22:00 Test Item Value Reference Range Interpretation [...] NOT APPLICABLE FOR DIALYSIS PATIEN TS. POCT-GLUCOSE [id number] 08:39:00 Test Item Value Reference Range Interpretation Comments POC-GLUCOSE METER 121 mg/dL 70-[address] [facility] 6720 (BEAKER) (test code = ALONDRA [place] 1538) 29096 CBC W/PLT COUNT & AUTO [id number] 06:20:00 Test Item Value Reference Range Interpretation [...] PERCENT (BEAKER) (test code = 2801) POCT-GLUCOSE [id number] 23:04:00 Test Item Value Reference Range Interpretation Comments POC-GLUCOSE METER 106 mg/dL 70-[address] [facility] 6720 (BEAKER) (test code = ALONDRA CRISOSTOMO 1538) 16485 POCT-GLUCOSE [id number] 19:31:00 Test Item Value Reference Range Interpretation Comments POC-GLUCOSE METER 142 mg/dL 70-110 H TESTED AT [place] [address] ([facility]) (test code = ALONDRA Coy [place] 1538) [address] POCT-GLUCOSE [id number] 12:27:00 Test Item Value Reference Range Interpretation Comments POC-GLUCOSE METER 101 mg/dL 70-110 TESTED AT [place] [address] ([facility]) (test code = ALONDRA Coy [facility] 1538) 58120 POCT-GLUCOSE [id number] 09:34:00 Test Item Value Reference Range Interpretation Comments POC-GLUCOSE METER 126 mg/dL 70-110 H TESTED AT [place] [address] ([facility]) (test code = ALONDRA Coy [facility] 1538) 78981 POCT-GLUCOSE [id number] 07:54:00 Test Item Value Reference Range Interpretation Comments POC-GLUCOSE METER 101 mg/dL 70-110 TESTED AT [place] [address] ([facility]) (test code = ALONDRA Coy [facility] 1538) 66[address] BASIC METABOLIC [id number] 05:55:00 Test Item Value Reference Range Interpretation [...] PATIEN TS. CBC W/PLT COUNT & AUTO [id number] 05:06:00 Test Item Value Reference Range Interpretation [...] PERCENT (BEAKER) (test code = 2801) POCT-GLUCOSE [id number] 23:07:00 Test Item Value Reference Range Interpretation Comments POC-GLUCOSE METER 102 mg/dL 70-110 TESTED AT [place] [address] ([facility]) (test code = RHETTPREETHI [place] 1538) [address] POCT-GLUCOSE [id number] 17:29:00 Test Item Value Reference Range Interpretation Comments POC-GLUCOSE METER 114 mg/dL 70-110 H TESTED AT [place] [address] ([facility]) (test code = ALONDRA [place] 1538) [address] POCT-GLUCOSE [id number] 12:02:00 Test Item Value Reference Range Interpretation Comments POC-GLUCOSE METER 146 mg/dL 70-110 H TESTED AT [place] [address] ([facility]) (test code = ALONDRA [place] 1538) 85677 POCT-GLUCOSE [id number] 08:14:00 Test Item Value Reference Range Interpretation Comments POC-GLUCOSE METER 101 mg/dL 70-110 TESTED AT [place] [address] ([facility]) (test code = ALONDRA [place] 1538) 89869 POCT-GLUCOSE [id number] 23:17:00 Test Item Value Reference Range Interpretation Comments POC-GLUCOSE METER 112 mg/dL 70-110 H TESTED AT [place] [address] ([facility]) (test code = ALONDRA [place] 1538) 55256 POCT-GLUCOSE [id number] 17:06:00 Test Item Value Reference Range Interpretation Comments POC-GLUCOSE METER 114 mg/dL 70-110 H TESTED AT [place] [address] ([facility]) (test code = ALONDRA [place] 1538) 31873 POCT-GLUCOSE [id number] 13:08:00 Test Item Value Reference Range Interpretation Comments POC-GLUCOSE METER 110 mg/dL 70-110 TESTED AT [place] [address] ([facility]) (test code = ALONDRA [place] 1538) 72785 POCT-GLUCOSE [id number] 08:26:00 Test Item Value Reference Range Interpretation Comments POC-GLUCOSE METER 151 mg/dL 70-110 H TESTED AT [place] [address] ([facility]) (test code = ALONDRA [place] 1538) 71883 POCT-GLUCOSE [id number] 23:22:00 Test Item Value Reference Range Interpretation Comments POC-GLUCOSE METER 116 mg/dL 70-110 H TESTED AT [place] [address] ([facility]) (test code = ALONDRA Coy [facility] 1538) 07824 POCT-GLUCOSE [id number] 19:01:00 Test Item Value Reference Range Interpretation Comments POC-GLUCOSE METER 145 mg/dL 70-110 H TESTED AT [place] [address] ([facility]) (test code = ALONDRA Coy [facility] 1538) 00445 POCT-GLUCOSE [id number] 13:42:00 Test Item Value Reference Range Interpretation Comments POC-GLUCOSE METER 119 mg/dL 70-110 H TESTED AT [place] [address] ([facility]) (test code = ALONDRA Coy [facility] 1538) 96596 TISSUE [id number] 12:34:00Surgical Pathology Report Case: [id number] Authorizing Provider: Geo Farfan, Collected: 11/28/2018 09 Ordering Location: [facility] Received: 11/28/2018 1029 PERIOPERATIVE SERVICES Pathologist: Reese Soares MD Specimen: Plaque, Right Carotid ARTERY, RIGHT CAROTID, ENDARTERECTOMY:CALCIFIC ATHEROSCLEROTIC PLAQUE Signing Pathologist Direct Phone Line: [phone]; [id number] stenosis Right carotid plaque Specimen is received in saline labeled with the patient's information and labeled "right carotid plaque" and consists of three irregular fragments of calcified azar-red tissue measuring 2.5 x 2 x 0.3 cm in aggregate. Pole Framer Machine sections are submitted in A1 for decalcification.CG/ew PERFORMEDPOCT-GLUCOSE [id number] 10:06:00 Test Item Value Reference Range Interpretation Comments POC-GLUCOSE METER 137 mg/dL 70-110 H TESTED AT [place] [address] ([facility]) (test code = ALONDRA Coy [facility] 1538) 91038 C. DIFFICILE GDH [id number] 09:08:00 Test Item Value Reference Range Interpretation Comments CDT TOXIN (test code Negative Negative = [id number]) CDT GDH ANTIGEN Positive Negative A C. difficile present but (test code = toxin not detec dmitry. [id number]) Indicates colon ization with non-toxige sabrina strain [...] kit performance was done by the [facility] Microbiology Lab prior to clinical use.BASIC METABOLIC [id number] 07:16:00 Test Item Value Reference Range Interpretation [...] CORPUSCULAR HEMOGLOBIN CONC 32.0 GM/DL 32.2-35.5 L ([facility]) (test code = 752) RED CELL DISTRIBUTION WIDTH 14.2 % 11.7-14.4 ([facility]) (test code = 412) PLATELET COUNT ([facility]) (test 289 K/CU MM 150-450 code = 756) MEAN PLATELET VOLUME (AKER) 11.2 fL 9.4-12.3 (test code = 754) NUCLEATED RED BLOOD CELLS 0 /100 WBC 0-0 ([facility]) (test code = 413) POCT-GLUCOSE [id number] 22:15:00 Test Item Value Reference Range Interpretation Comments POC-GLUCOSE METER 112 mg/dL 70-110 H TESTED AT [place] [address] ([facility]) (test code = [facility] 1538) 90180 POCT-GLUCOSE [id number] 18:17:00 Test Item Value Reference Range Interpretation Comments POC-GLUCOSE METER 149 mg/dL 70-110 H TESTED AT [place] [address] ([facility]) (test code = [facility] 1538) 54108 POCT-GLUCOSE [id number] 13:17:00 Test Item Value Reference Range Interpretation Comments POC-GLUCOSE METER 160 mg/dL 70-110 H TESTED AT [place] [address] ([facility]) (test code = [facility] 1538) 33403 POCT-GLUCOSE [id number] 08:01:00 Test Item Value Reference Range Interpretation Comments POC-GLUCOSE METER 110 mg/dL 70-110 TESTED AT [place] [address] ([facility]) (test code = [facility] 1538) 10598 [id number] 05:54:00 Test Item Value Reference Range Interpretation Comments MAGNESIUM (BEAKER) 1.9 mg/dL 1.6-2.6 Specimen slightly (test code = 627) hemolyzed BASIC METABOLIC [id number] 05:54:00 Test Item Value Reference Range Interpretation Comments SODIUM (BEAKER) 141 meq/L 136-145 (test code = 381) POTASSIUM (BEAKER) 4.4 meq/L 3.5-5.1 Specimen slightly (test code = 379) hemolyzed CHLORIDE (AKER) 109 meq/L 98-107 H (test code = [...] 0-0 (BEAKER) (test code = 413) POCT-GLUCOSE [id number] 22:44:00 Test Item Value Reference Range Interpretation Comments POC-GLUCOSE METER 91 mg/dL 70-110 TESTED AT [place] [address] ([facility]) (test code = [place] [address] 1538) POCT-GLUCOSE [id number] 17:10:00 Test Item Value Reference Range Interpretation Comments POC-GLUCOSE METER 151 mg/dL 70-110 H TESTED AT [place] [address] ([facility]) (test code = ALONDRA Coy [place] 1538) 7[address] POCT-GLUCOSE [id number] 12:46:00 Test Item Value Reference Range Interpretation Comments POC-GLUCOSE METER 166 mg/dL 70-110 H TESTED AT [place] [address] ([facility]) (test code = ALONDRA Coy [place] 1538) [address]119 POCT-GLUCOSE [id number] 08:21:00 Test Item Value Reference Range Interpretation Comments POC-GLUCOSE METER 147 mg/dL 70-110 H TESTED AT [place] [address] ([facility]) (test code = ALONDRA Coy [facility] 1538) 74341 CBC (HEMOGRAM ONLY)2018-12-03 07:53:00 Test Item Value [...] WBC 0-0 (BEAKER) (test code = 413) [id number] 06:48:00 Test Item Value Reference Range Interpretation Comments MAGNESIUM (BEAKER) (test code = 1.5 mg/dL 1.6-2.6 L 627) BASIC METABOLIC [id number] 06:48:00 Test Item Value Reference Range Interpretation [...] NOT APPLICABLE FOR DIALYSIS PATIEN TS. POCT-GLUCOSE [id number] 23:20:00 Test Item Value Reference Range Interpretation Comments POC-GLUCOSE METER 125 mg/dL 70-110 H TESTED AT [place] [address] ([facility]) (test code = [facility] Zbigniew [facility] 1538) 49062 POCT-GLUCOSE [id number] 17:33:00 Test Item Value Reference Range Interpretation Comments POC-GLUCOSE METER 136 mg/dL 70-110 H TESTED AT [place] [address] ([facility]) (test code = [facility] 1538) 07046 POCT-GLUCOSE [id number] 11:43:00 Test Item Value Reference Range Interpretation Comments POC-GLUCOSE METER 168 mg/dL 70-110 H TESTED AT [place] [address] ([facility]) (test code = [facility] Zbigniew [facility] 1538) 56735 POCT-GLUCOSE [id number] 08:52:00 Test Item Value Reference Range Interpretation Comments POC-GLUCOSE METER 165 mg/dL 70-[address] [facility] 6720 (BEAKER) (test code = ALONDRA CRISOSTOMO 1538) 72718 [id number] 05:18:00 Test Item Value Reference Range Interpretation Comments MAGNESIUM (BEAKER) (test code = 1.8 mg/dL 1.6-2.6 627) BASIC METABOLIC [id number] 05:18:00 Test Item Value Reference Range Interpretation [...] (BEAKER) (test code = 412) PLATELET COUNT ([facility]) (test 206 K/CU MM 150-450 code = 756) MEAN PLATELET VOLUME (BEAKER) 11.8 fL 9.4-12.3 (test code = 754) NUCLEATED RED BLOOD CELLS 0 /100 WBC 0-0 (AKER) (test code = 413) POCT-GLUCOSE [id number] 22:03:00 Test Item Value Reference Range Interpretation Comments POC-GLUCOSE METER 206 mg/dL 70-110 H TESTED AT [place] [address] ([facility]) (test code = ALONDRA Coy [facility] 1538) 77996 POCT-GLUCOSE [id number] 21:51:00 Test Item Value Reference Range Interpretation Comments POC-GLUCOSE METER 185 mg/dL 70-110 H TESTED AT [place] [address] ([facility]) (test code = ALONDRA Coy [facility] 1538) 09046 POCT-GLUCOSE [id number] 12:51:00 Test Item Value Reference Range Interpretation Comments POC-GLUCOSE METER 180 mg/dL 70-110 H TESTED AT [place] [address] ([facility]) (test code = ALONDRA Coy [place] 1538) 9[address]49 POCT-GLUCOSE [id number] 09:51:00 Test Item Value Reference Range Interpretation Comments POC-GLUCOSE METER 171 mg/dL 70-110 H TESTED AT [place] [address] ([facility]) (test code = ALONDRA Coy [facility] 1538) 68425 [id number] 06:42:00 Test Item Value Reference Range Interpretation Comments MAGNESIUM (BEAKER) (test code = 1.6 mg/dL 1.6-2.6 627) BASIC METABOLIC [id number] 06:42:00 Test Item Value Reference Range Interpretation [...] APPLICABLE FOR DIALYSIS PATIEN TS. HEPATIC FUNCTION [id number] 06:42:00 Test Item Value Reference Range Interpretation [...] 6-55 347) CBC W/PLT COUNT & AUTO [id number] 05:25:00 Test Item Value Reference Range Interpretation [...] 0-1 H PERCENT (BEAKER) (test code = 2809) POCT-GLUCOSE [id number] 21:31:00 Test Item Value Reference Range Interpretation Comments POC-GLUCOSE METER 143 mg/dL 70-[address] [facility] 6720 (BEAKER) (test code = ALONDRA CRISOSTOMO 1538) 30918 POCT-GLUCOSE [id number] 18:26:00 Test Item Value Reference Range Interpretation Comments POC-GLUCOSE METER 252 mg/dL 70-110 H TESTED AT [place] [address] ([facility]) (test code = ALONDRA Coy [place] 1538) 27242 POCT-GLUCOSE [id number] 12:40:00 Test Item Value Reference Range Interpretation Comments POC-GLUCOSE METER 161 mg/dL 70-110 H TESTED AT [place] [address] ([facility]) (test code = ALONDRA Coy [facility] 1538) 86294 HEMOGLOBIN [id number] 11:08:00 Test Item Value Reference Range Interpretation Comments HEMOGLOBIN A1C (BEAKER) (test code = 7.2 % 4.3-6.1 H 368) POCT-GLUCOSE [id number] 08:17:00 Test Item Value Reference Range Interpretation Comments POC-GLUCOSE METER 162 mg/dL 70-110 H TESTED AT [place] [address] ([facility]) (test code = ALONDRA Coy [facility] 1538) 32954 POCT-GLUCOSE [id number] 07:48:00 Test Item Value Reference Range Interpretation Comments POC-GLUCOSE METER 158 mg/dL 70-110 H TESTED AT [place] [address] ([facility]) (test code = ALONDRA Coy [facility] 1538) 42766 [id number] 06:55:00 Test Item Value Reference Range Interpretation Comments MAGNESIUM (BEAKER) (test code = 1.4 mg/dL 1.6-2.6 L 627) BASIC METABOLIC [id number] 06:55:00 Test Item Value Reference Range Interpretation [...] NOT APPLICABLE FOR DIALYSIS PATIEN TS. LIPID [id number] 06:55:00 Test Item Value Reference Range Interpretation [...] Very High >=190CBC W/PLT COUNT & AUTO [id number] 06:39:00 Test Item Value Reference Range Interpretation [...] PERCENT (BEAKER) (test code = 2801) POCT-GLUCOSE [id number] 21:50:00 Test Item Value Reference Range Interpretation Comments POC-GLUCOSE METER 185 mg/dL 70-110 H TESTED AT [place] [address] ([facility]) (test code = [facility] 1538) 83270 POCT-GLUCOSE [id number] 17:26:00 Test Item Value Reference Range Interpretation Comments POC-GLUCOSE METER 201 mg/dL 70-110 H TESTED AT [place] [address] ([facility]) (test code = [facility] 1538) 69713 POCT-GLUCOSE [id number] 15:25:00 Test Item Value Reference Range Interpretation Comments POC-GLUCOSE METER 136 mg/dL 70-110 H TESTED AT [place] [address] ([facility]) (test code = [facility] 1538) 61787 POCT-GLUCOSE [id number] 13:38:00 Test Item Value Reference Range Interpretation Comments POC-GLUCOSE METER 136 mg/dL 70-110 H TESTED AT [place] [address] ([facility]) (test code = [facility] 1538) 34090 POCT-GLUCOSE [id number] 11:05:00 Test Item Value Reference Range Interpretation Comments POC-GLUCOSE METER 183 mg/dL 70-[address] [facility] 6720 (BEAKER) (test code = ALONDRA Coy [place] 1538) 887[address] [id number] 04:18:00 Test Item Value Reference Range Interpretation Comments MAGNESIUM (BEAKER) (test code = 1.4 mg/dL 1.6-2.6 L 627) BASIC METABOLIC [id number] 04:18:00 Test Item Value Reference Range Interpretation [...] PATIEN TS. CBC W/PLT COUNT & AUTO [id number] 03:47:00 Test Item Value Reference Range Interpretation [...] (BEAKER) (test code = 2801) BASIC METABOLIC [id number] 17:45:00 Test Item Value Reference Range Interpretation [...] NOT APPLICABLE FOR DIALYSIS PATIEN TS. POCT-GLUCOSE [id number] 14:36:00 Test Item Value Reference Range Interpretation Comments POC-GLUCOSE METER 158 mg/dL 70-[address] [facility] 6720 (BEAKER) (test code = ALONDRA [place] 1538) 0[address] [id number] 10:50:00 Test Item Value Reference Range Interpretation Comments PHOSPHORUS (BEAKER) (test code = 3.1 mg/dL 2.3-4.7 604) [id number] 10:50:00 Test Item Value Reference Range Interpretation Comments MAGNESIUM (BEAKER) (test code = 1.4 mg/dL 1.6-2.6 L 627) BASIC METABOLIC [id number] 10:50:00 Test Item Value Reference Range Interpretation [...] DIALYSIS PATIEN TS. LACTIC ACID, ARTERIAL, WHOLE [id number] 10:47:00 Test Item Value Reference Range Interpretation Comments LACTATE BLOOD ARTERIAL (2) 0.7 mmol/L 0.5-2.2 (BEAKER) (test code = 2874) BLOOD GAS, [id number] 10:36:00 Test Item Value Reference Range Interpretation [...] (test code = 1819) 32.0 % CALCIUM, [id number] 10:36:00 Test Item Value Reference Range Interpretation Comments CALCIUM IONIZED (BEAKER) (test 1.12 mmol/L 1.12-1.27 code = 698) PH, BLOOD (BEAKER) (test code = 7.41 1810) CBC W/PLT COUNT & AUTO [id number] 10:32:00 Test Item Value Reference Range Interpretation [...] (BEAKER) (test code = 2801) COMPREHENSIVE METABOLIC [id number] 07:28:00 Test Item Value Reference Range Interpretation [...] PATIEN TS. RAD, CHEST, 1 VIEW, NON [id number] 07:18:00Reason for exam:->CV pre- opShould this be performed at the bedside?->YesFINAL REPORT INDICATION: CV pre-op COMPARISON: None TECHNIQUE: Single frontalview of the chest. FINDINGS: Lungs and pleura: Clear lungs. No effusion.Heart and mediastinum: Normal heart size. Unremarkable mediastinal contours.Osseous structures: No acute abnormality.Other: None. IMPRESSION: No acute intrathoracic abnormality. Signed: JR Dow Robert MDReport Verified Date/Time: 11/28/2018 07:18:00 Reading Location: [facility] Radiology Reading Room APTT 2018-11-28 07:13:00 Test Item Value Reference Range Interpretation Comments PARTIAL THROMBOPLASTIN TIME 38.8 seconds 22.5-36.0 H (BEAKER) (test code = 760) PROTHROMBIN [id number] 07:12:00 Test Item Value Reference Range Interpretation [...] % 0-1 PERCENT (BEAKER) (test code = 4422)
[2021-10-09] MEDS: METOPROLOL TAR 25 MG TAB PO SCH (06:00)
--- NOTE | 2021-10-09 06:10 | P.PN ---
Subjective Date of Service: 10/09/21 Primary Care Provider: Catawba dylon Chief Complaint: RUL lung mass Subjective: Doing well (Patient reports no complaints, chest pain or shortness of breath) Physical Examination - Vital Signs Temperature: 97.8 F Blood Pressure: 122/60 Pulse: 70 Respirations: 16 Pulse Ox (%): 94 Assessment & Plan Discharge Plan: Other ([facility] facility) Plan to discharge in: 24 Hours Physician Review Additional Text: COVID: Negative CT Chest 07/2021: COMPARISON: Thorax Wo Con dated 01/20/2020 TECHNIQUE: Approximately 100 mL nonionic IV contrast was administered to the patient. All CT scans are performed using dose optimization technique as appropriate and may include automated exposure control or mA/KV adjustment according to patient size. FINDINGS: 8.1 cm mass along the right upper lung. There is a second pleural based mass with central low attenuation in the right lower lung measuring 2.7 cm. Emphysema is present.Coronary artery calcifications. Cardiomegaly. Sternotomy. Possible low-density lesion in the right hepatic lobe. Cholelithiasis. 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 Atherosclerosis. No renal ureteral calculi identified. No bowel obstruction. Bladder is unremarkable. Hysterectomy No bowel obstruction, free air, free fluid or abscess. No worrisome osseous finding. Sternotomy. Multilevel degenerative changes are present in the spine. IMPRESSION: Two masses in the right lung, the larger measuring over 8 cm . This is suspicious for neoplasm. There is a more indeterminate right lower lobe process with a broader differential. Could consider PET-CT or percutaneous biopsy for further evaluation. CXR: COMPARISON: CT chest August 03, portable chest August 03 TECHNIQUE: AP portable chest image was obtained 10/06/2021 3:14 pm . FINDINGS: Chronic interstitial lung disease is present in both lung martinez. Focally more prominent lung parenchymal opacification in the right base believed to be part of the posterior right base mass detailed on the August 03 CT chest study. A larger 8 centimeter mass in the lateral upper right lung field again noted. These masses are not clearly different from prior imaging. No significant failure or volume overload. Sternotomy wires are in place. Heart and vasculature are normal. No measurable pleural effusion and no pneumothorax. No acute bony abnormality seen. No acute aortic findings suspected. IMPRESSION: Two right-side chest masses are present superimposed on chronic fibrotic lung change. No acute chest finding seen. No significant change from the [facility] imaging. Physical exam: General: Alert, Oriented x1, patient with dementia. Patient appears overall stable. HEENT: Atraumatic, Normocephalic Neck: Supple Respiratory: Clear to auscultation bilaterally, Normal air movement, patient on room air Cardiovascular: Normal sinus rhythm trolled Capillary refill: <2 Seconds Gastrointestinal: Normal bowel sounds Integumentary: No significant lesion, No tenderness/swelling, No erythema Neurological: Normal speech, Normal tone Impression: Hypertensive urgency with underlying primary hypertension Hypercalcemia with abnormal CT scan in the past showing 2 masses in the right lung COPD with history of tobacco use Elevated troponin likely ischemic demand with history of CAD/CABG Medical debility/generalized weakness after fall Atrial fibrillation not on chronic anticoagulation therapy Diabetes mellitus type 2 Hyperlipidemia CKD 3 with hyperkalemia Plan: Hypertensive urgency with underlying primary hypertension: Blood pressure overall improved. Lisinopril was increased to 20 mg 1 pill twice daily.. Clonidine was added but this will be discontinued. Patient had episode of second versus third-degree block. Care discussed with cardiology. Cardiology recommends clonidine and metoprolol to be discontinued. We will add Norvasc for better blood pressure control. Will monitor blood pressure closely and adjust accordingly. Patient to have lung biopsy tomorrow with radiology. Awaiting approval for skilled placement. Will discuss with family about plan of care. Episode of second/third degree block: Reviewed with telemetry. Cardiology co nsulted. Await recommendations. Medications reviewed. No evidence of significant bradycardia. Cardiology recommended to discontinue metoprolol and clonidine. Hypercalcemia with abnormal CT scan in the past showing 2 masses in the right lung: Case discussed with pulmonology.pulmonology reports patient was not able to get bronchoscopy as an outpatient along with pulmonary function test. As the patient is here, pulmonology discussed the possibility of radiology assisted CT- guided lung biopsy. Radiology would be able to do this tomorrow. Biopsy to be done. Continue her COPD medication. Patient on room air. COPD with history of tobacco use: Continue Brovana and COPD medication. Discontinue IV Solu-Medrol and transition to oral steroid. Patient will require medication at discharge. Elevated troponin likely ischemic demand with history of CAD/CABG: Case discussed with cardiology. No intervention required at this time. Continue with above recommendations. Echocardiogram to be obtained. Await recommendations from cardiology concerning EKG/telemetry. Continue aspirin, Lipitor, folic acid and blood pressure medication. Medical debility/generalized weakness after fall: Continue physical therapy and Occupational Therapy. Family wants patient to go to skilled placement. Await approval. Atrial fibrillation not on chronic anticoagulation therapy: Patient currently in sinus rhythm. Cardiology recommends to discontinue metoprolol due to EKG change s. Will monitor closely. Cardiology recommends no chronic anticoagulation therapy. Patient not on chronic anticoagulation therapy due to risk of fall, bleeding and age. Diabetes mellitus type 2: Will check hemoglobin A1c. Continue Accu-Cheks and sliding scale. Will monitor dress appropriately. Will review home medication. Hyperlipidemia: Continue Lipitor 20 mg daily CKD 3 hyperkalemia: Recheck potassium. Overall stable. Will monitor closely. Encourage oral intake. If taking good oral intake will Hep-Lock IV fluids DVT PPX: Lovenox Code status: spoke to Daughter Judit phone number [phone] yesterday. Patient remains Full code Discharge Plan: Spoke to daughter. Daughter wants patient to go to SNF. Await SNF approval. Time Spent Managing Pts Care (In Minutes): 55
[2021-10-09] MEDS: ARFORMOTEROL TARTRATE 15 MCG/2 ML VIAL.NEB NEB SCH ×2 (07:29→19:40)
[2021-10-09] MEDS: INSULIN -REGULAR HUMAN 50 UNIT/0.5 ML ML SQ SCH ×4 (07:30→21:14)
[2021-10-09] MEDS: ASPIRIN EC 81 MG TAB PO SCH (09:14)
[2021-10-09] MEDS: METHYLPREDNISOLONE 40 MG INJ IV SCH (09:14)
[2021-10-09] MEDS: lisinopriL 20 MG TAB PO SCH ×2 (09:22→21:13)
[2021-10-09] MEDS: HYDRALAZINE HCL 20 MG/ML VIAL IV PRN (09:29)
[2021-10-09] MEDS: ENOXAPARIN 30 MG/0.3 ML SQ SCH (16:09)
[2021-10-09] MEDS: GLUCERNA SHAKE 237 ML CAN PO SCH (21:00)
[2021-10-09] MEDS: ATORVASTATIN 20 MG TAB PO SCH (21:13)
[2021-10-09] MEDS: predniSONE 10 MG TAB PO SCH (21:13)
[2021-10-09 21:34] LABS: Albumin 3.1 g/dL (3.4-5.0); Bilirubin Total 0.3 mg/dL (0.2-1.0); Magnesium 1.9 mg/dL (1.8-2.4); Potassium 4.8 mmol/L (3.5-5.1); Protein, Total 7.7 g/dL (6.4-8.2)
[2021-10-10 06:27] LABS: Absolute Lymphocytes (CBC) 1.5 K/uL (0.7-4.9); Basophils % 0.5 % (0-1.3); Hematocrit 37.4 % (36.0-45.0); Lymphocytes % 11.5 % (15.3-44.8); MPV 10.6 fL (7.6-11.3)
[2021-10-10 06:40] LABS: Bilirubin Total 0.4 mg/dL (0.2-1.0); Magnesium 1.9 mg/dL (1.8-2.4); Potassium 4.1 mmol/L (3.5-5.1); Protein, Total 7.6 g/dL (6.4-8.2)
[2021-10-10] MEDS: INSULIN -REGULAR HUMAN 50 UNIT/0.5 ML ML SQ SCH ×3 (07:30→16:30)
[2021-10-10] MEDS: ARFORMOTEROL TARTRATE 15 MCG/2 ML VIAL.NEB NEB SCH ×2 (07:54→20:00)
--- NOTE | 2021-10-10 08:03 | ECHO ---
HEIGHT: 5 ft 7 in WEIGHT: 119 lb 0 oz DATE OF STUDY: 10/07/[address]: Erick Pedersen MD 2-DIMENSIONAL: YES M.MODE: YES DOPPLER: YES COLOR FLOW: YES TDS: YES PORTABLE: NO DEFINITY: NO BUBBLE STUDY: NO DIAGNOSIS: TROPONIN ABNORMAL CARDIAC HISTORY: CATHERIZATION: SURGERY: PROSTHETIC VALVE: PACEMAKER: MEASUREMENTS (cm) DIASTOLIC (NORMALS) SYSTOLIC (NORMALS) IVSd 1.2 (0.6-1.2) LA Diam 3.3 (1.9-4.0) LVEF 79% LVIDd 3.6 (3.5-5.7) LVIDs 1.9 (2.0-3.5) %FS 47% LVPWd 1.3 (0.6-1.2) Ao Diam 2.5 (2.0-3.7) 2 DIMENSIONAL ASSESSMENT: RIGHT ATRIUM: NORMAL LEFT ATRIUM: NORMAL RIGHT VENTRICLE: NORMAL LEFT VENTRICLE: LEFT VENTRICUALR HYPERTROPHY TRICUSPID VALVE: NORMAL MITRAL VALVE: NORMAL PULMONIC VALVE: NORMAL AORTIC VALVE: STENOTIC PERICARDIAL EFFUSION: NONE AORTIC ROOT: NORMAL LEFT VENTRICULAR WALL MOTION: NORMAL DOPPLER/COLOR FLOW: MILD TRICUSPID REGURGITATION. COMMENTS: MILD AOTRIC STENOSIS. AORTIC VALVE AREA 1.9 CENTIMETERS SQUARED. LEFT VENTIRCULAR HYPERTROPHY. NO WALL MOTION ABORMALITY. NO EFFUSION. NORMAL LEFT VENTIRUCLAR EJECTION FRACTION 79% TECHNOLOGIST: Licha GALEAS
[2021-10-10] MEDS: MEMANTINE HCL 10 MG TABLET PO SCH (08:52)
[2021-10-10] MEDS: ASPIRIN EC 81 MG TAB PO SCH (08:52)
[2021-10-10] MEDS: lisinopriL 20 MG TAB PO SCH (08:53)
[2021-10-10] MEDS: predniSONE 10 MG TAB PO SCH (08:56)
[2021-10-10] MEDS: GLUCERNA SHAKE 237 ML CAN PO SCH ×2 (08:57→21:00)
[2021-10-10] MEDS ORDERED: AMLODIPINE 5 MG TAB PO SCH (09:00)
[2021-10-10] MEDS ORDERED: MIDAZOLAM HCL 2 MG/2 ML INJ ONE (09:07)
[2021-10-10] MEDS ORDERED: FENTANYL CITR 100 MCG/2 ML ONE (09:07)
[2021-10-10] MEDS ORDERED: FLUMAZENIL 0.1 MG/ML (5 mL VIAL) IV ONE (09:07)
[2021-10-10] MEDS ORDERED: NALOXONE 0.4 MG/ML VIAL ONE (09:07)
--- NOTE | 2021-10-10 11:51 | RAD REPORT ---
EXAM DESCRIPTION: CT - Lung Biopsy Perc w/CT - 10/10/2021 10:52 am CLINICAL HISTORY: Right upper lobe lung mass to be done by Radiology COMPARISON: No comparisons FINDINGS: Preoperative diagnosis: Right upper lobe lung mass Post operative diagnosis: Same Conscious Sedation: Provided. Patient was continuously monitored by nursing staff. Contrast used: NONE Estimated blood loss: less than 5 mL Specimens: 2 core samples were obtained of the right upper lobe lung mass. The patient was placed prone on the table and the right posterior thorax area was prepped and draped in the usual sterile fashion. 1% lidocaine was infiltrated into the subcutaneous tissues for local an esthesia. Under computed tomographic guidance, a 17 gauge introducer was advanced into the lesion. Delgado bsequently, a 18 gauge, 10 cm long, 20 mm throw core biopsy gun was advanced into the lesion and cor es were obtained. Postprocedure imaging demonstrated no complications. Samples were given to pathology for analysis. Th e patient tolerated the procedure without immediate complication and transferred to the recovery room in stable condition. IMPRESSION: Technically successful CT-guided biopsy of a right upper lobe lung mass. No immediate co mplications. Conscious sedation was utilized. All CT scans are performed using dose optimization technique as appropriate and may include automated exposure control or mA/KV adjustment according to patient size.
[2021-10-10] MEDS: ONDANSETRON 4 MG/2 ML VIAL IV PRN (12:03)
--- NOTE | 2021-10-10 14:35 | RAD REPORT ---
EXAM DESCRIPTION: RAD - Chest Single View - 10/10/2021 2:22 pm CLINICAL HISTORY: post lung bx COMPARISON: CT lung biopsy, CT chest August 03 October 10 TECHNIQUE: AP portable chest image was obtained 10/10/2021 2:22 pm on expiration approximately [address]-guided lung biopsy. FINDINGS: Lung volumes are low due to expiration technique. There is no pneumothorax. Right base opa cification is accentuated by shallow inspiration. Patient has a known small right pleural effusion th at was present prior to the biopsy procedure. No evidence for an enlarging pleural the fusion or hemo thorax. Trachea is in the midline. Heart size is stable. IMPRESSION: No post biopsy pneumothorax.
[2021-10-10] MEDS: ENOXAPARIN 30 MG/0.3 ML SQ SCH (17:00)
[2021-10-11] MEDS: INSULIN -REGULAR HUMAN 50 UNIT/0.5 ML ML SQ SCH ×5 (00:07→21:00)
[2021-10-11] MEDS: ATORVASTATIN 20 MG TAB PO SCH ×2 (00:17→00:25)
[2021-10-11] MEDS: predniSONE 10 MG TAB PO SCH ×3 (00:19→21:22)
[2021-10-11] MEDS: lisinopriL 20 MG TAB PO SCH ×3 (00:19→21:22)
[2021-10-11] MEDS: ARFORMOTEROL TARTRATE 15 MCG/2 ML VIAL.NEB NEB SCH ×2 (08:05→20:00)
[2021-10-11] MEDS: MEMANTINE HCL 10 MG TABLET PO SCH (08:16)
[2021-10-11] MEDS: ASPIRIN EC 81 MG TAB PO SCH (08:16)
[2021-10-11] MEDS: GLUCERNA SHAKE 237 ML CAN PO SCH ×2 (08:17→21:00)
--- NOTE | 2021-10-11 08:17 | P.PN ---
Subjective Date of Service: 10/10/21 Patient had lung biopsy performed today. Still weak and frail. Awaiting for placement at [facility]. Review of Systems 10-point ROS is otherwise unremarkable Physical Examination - Vital Signs Temperature: 97.1 F Blood Pressure: 130/84 Pulse: 68 Respirations: 20 Pulse Ox (%): 99 - Physical Exam General: Alert, In no apparent distress, Oriented x3 HEENT: Atraumatic, PERRLA, EOMI Neck: Supple, JVD not distended Respiratory: Clear to auscultation bilaterally, Normal air movement Cardiovascular: Regular rate/rhythm, Normal S1 S2, Systolic murmur Gastrointestinal: Normal bowel sounds, Soft and benign, Non-distended, No tenderness Musculoskeletal: No clubbing, No swelling, No tenderness Neurological: Sensation intact, Cranial nerves 3-12 intact - Studies Medications List Reviewed: Yes Assessment & Plan - Problems (Diagnosis) (1) Lung cancer Current Visit: Yes Status: Acute Qualifiers: Laterality: right (2) Chronic systolic heart failure Current Visit: No Status: Acute (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 Continue anti-platelet therapy 2. Continue physical therapy 3. Monitor caloric intake 4. Out of bed and to a chair with meals 5. Protein supplementation 6. Monitor hemodynamics closely 7. GI and DVT prophylaxis Discharge Plan: Home Plan to discharge in: Greater than 2 days - Advance Directives Does patient have a Living Will: No Does patient have a Durable POA for Healthcare: No - Code Status/Comfort Care Code Status Assessed: Yes Code Status: Full Code Critical Care: No Time Spent Managing PTS Care (In Minutes): 45
--- NOTE | 2021-10-11 08:21 | P.PN ---
Date of Service: 10/11/21 Subjective Patient no significant changes. Patient clinically feeling a little bit better. Continue with therapy. Review of Systems 10-point ROS is otherwise unremarkable Physical Examination - Vital Signs Reviewed - Physical Exam General: Alert, In no apparent distress, Oriented x3 Respiratory: Clear to auscultation bilaterally, Normal air movement Cardiovascular: Regular rate/rhythm, Normal S1 S2, Systolic murmur Gastrointestinal: Normal bowel sounds, Soft and benign, Non-distended, No tenderness Musculoskeletal: No clubbing, No swelling, No tenderness Neurological: Sensation intact, Cranial nerves 3-12 intact Assessment & Plan - Problems (Diagnosis) (1) Lung cancer Current Visit: Yes Status: Acute Qualifiers: Laterality: right (2) Chronic systolic heart failure Current Visit: No Status: Acute (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 Continue anti-platelet therapy 2. Continue physical therapy 3. Monitor caloric intake 4. Out of bed and to a chair with meals 5. Protein supplementation 6. Monitor hemodynamics closely 7. GI and DVT prophylaxis Awaiting for placement at [facility]
--- NOTE | 2021-10-11 12:29 | P.PN ---
Subjective Date of Service: 10/11/21 Primary Care Provider: Benja osborne Chief Complaint: RUL lung mass Subjective: Improving (Patient is doing much better today she is more alert responsive cooperative s/p FNA results pending) Review of Systems General: Weakness Respiratory: Shortness of Breath Physical Examination - Vital Signs Temperature: 97.0 F Blood Pressure: 134/61 Pulse: 68 Respirations: 14 Pulse Ox (%): 99 - Physical Exam General: Alert, Oriented x3, Cooperative Respiratory: Clear to auscultation bilaterally, Diminished Cardiovascular: No edema, Normal S1 S2 - Studies Medications List Reviewed: Yes Assessment & Plan - Problems (Diagnosis) (1) Lung cancer Current Visit: Yes Status: Acute Plan: S/p FNA awaiting biopsy result still feeling weak blood pressures much better controlled Daily room air pulse ox oxygenation appears to be eating and drinking fairly well not requiring oxygen plan for discharge calcium is back to normal Qualifiers: Laterality: right
[2021-10-11] MEDS: ENOXAPARIN 30 MG/0.3 ML SQ SCH (16:28)
--- NOTE | 2021-10-11 16:55 | EKG ---
Test Date: 2021-10-09 Test Time: 06:07:18 Rock Drill Operator: SANDRA MEASUREMENT RESULTS: Intervals: Rate: 61 IN: QRSD: 68 QT: 446 QTc: 448 [place]: P: IN: QRS: -19 T: 69 INTERPRETIVE STATEMENTS: Atrial fibrillation with premature ventricular or aberrantly conducted complexes Nonspecific ST and T wave abnormality, probably digitalis effect Abnormal ECG Compared to ECG 10/07/2021 21:03:46 Ventricular premature complex(es) now present Sinus rhythm no longer present ST (T wave) deviation still present Electronically Signed On 10-11-21 16:51:30 TRAINING AND DEVELOPMENT PROJECT LEADER by Erick Pedersen
--- NOTE | 2021-10-11 16:56 | EKG ---
Test Date: 2021-10-07 Test Time: 21:03:46 Philanthropy Officer: SANDRA MEASUREMENT RESULTS: Intervals: Rate: 57 VT: QRSD: 68 QT: 472 QTc: 459 [place]: P: 87 VT: QRS: -3 T: 121 INTERPRETIVE STATEMENTS: Sinus rhythm with 2nd degree AV block (Mobitz I) with 2:[address] and T wave abnormality Abnormal ECG Compared to ECG 10/07/2021 06:16:34 Atrial premature complex(es) no longer present ST (T wave) deviation still present Electronically Signed On 10-11-21 16:51:32 MANAGER OF QUALITY by Erick Pedersen
[2021-10-12] MEDS: INSULIN -REGULAR HUMAN 50 UNIT/0.5 ML ML SQ SCH ×4 (07:30→21:29)
[2021-10-12] MEDS: ARFORMOTEROL TARTRATE 15 MCG/2 ML VIAL.NEB NEB SCH ×2 (08:05→20:00)
[2021-10-12] MEDS: lisinopriL 20 MG TAB PO SCH ×2 (10:10→21:28)
[2021-10-12] MEDS: predniSONE 10 MG TAB PO SCH ×2 (10:11→21:29)
[2021-10-12] MEDS: ASPIRIN EC 81 MG TAB PO SCH (10:11)
[2021-10-12] MEDS: MEMANTINE HCL 10 MG TABLET PO SCH (10:11)
[2021-10-12] MEDS: GLUCERNA SHAKE 237 ML CAN PO SCH ×2 (10:13→21:30)
[2021-10-12] MEDS: ENOXAPARIN 30 MG/0.3 ML SQ SCH (17:11)
[2021-10-12] MEDS: ATORVASTATIN 20 MG TAB PO SCH (21:28)
[2021-10-13] MEDS: INSULIN -REGULAR HUMAN 50 UNIT/0.5 ML ML SQ SCH ×4 (07:30→20:12)
[2021-10-13] MEDS: ARFORMOTEROL TARTRATE 15 MCG/2 ML VIAL.NEB NEB SCH ×2 (08:04→20:00)
[2021-10-13] MEDS: ASPIRIN EC 81 MG TAB PO SCH (10:31)
[2021-10-13] MEDS: predniSONE 10 MG TAB PO SCH ×2 (10:31→20:12)
[2021-10-13] MEDS: MEMANTINE HCL 10 MG TABLET PO SCH (10:31)
[2021-10-13] MEDS: lisinopriL 20 MG TAB PO SCH ×2 (10:33→20:11)
[2021-10-13] MEDS: GLUCERNA SHAKE 237 ML CAN PO SCH ×2 (10:33→22:00)
--- NOTE | 2021-10-13 11:00 | P.PN ---
Date of Service: 10/12/21 Subjective Patient appears to be doing much better. Strength has improved. Continue out of bed and transfer and continue with physical therapy. Pathology report pending from lung biopsy Review of Systems 10-point ROS is otherwise unremarkable Physical Examination - Vital Signs Reviewed - Physical Exam General: Alert, In no apparent distress, Oriented x3 Respiratory: Clear to auscultation bilaterally, Normal air movement Cardiovascular: Regular rate/rhythm, Normal S1 S2, Systolic murmur Gastrointestinal: Normal bowel sounds, Soft and benign, Non-distended, No tenderness Musculoskeletal: No clubbing, No swelling, No tenderness Neurological: Sensation intact, Cranial nerves 3-12 intact Assessment & Plan - Problems (Diagnosis) (1) Lung cancer Current Visit: Yes Status: Acute Qualifiers: Laterality: right (2) Chronic systolic heart failure Current Visit: No Status: Acute (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 Continue anti-platelet therapy 2. Continue physical therapy; strength is improving in mentation has improved 3. Monitor caloric intake 4. Out of bed and to a chair with meals 5. Protein supplementation 6. Monitor hemodynamics closely 7. Awaiting biopsy results 8. GI and DVT prophylaxis Awaiting for placement at [facility]
[2021-10-13] MEDS: ENOXAPARIN 30 MG/0.3 ML SQ SCH (17:37)
[2021-10-13] MEDS: ATORVASTATIN 20 MG TAB PO SCH (20:12)
[2021-10-13] MEDS: ACETAMINOPHEN 500 MG TAB PO PRN (20:12)
[2021-10-14] MEDS: INSULIN -REGULAR HUMAN 50 UNIT/0.5 ML ML SQ SCH ×4 (07:30→21:05)
[2021-10-14] MEDS: ASPIRIN EC 81 MG TAB PO SCH (07:55)
[2021-10-14] MEDS: predniSONE 10 MG TAB PO SCH ×2 (07:55→20:57)
[2021-10-14] MEDS: GLUCERNA SHAKE 237 ML CAN PO SCH ×2 (07:56→20:58)
[2021-10-14] MEDS: MEMANTINE HCL 10 MG TABLET PO SCH (07:56)
[2021-10-14] MEDS: lisinopriL 20 MG TAB PO SCH ×2 (07:56→20:56)
[2021-10-14] MEDS: ARFORMOTEROL TARTRATE 15 MCG/2 ML VIAL.NEB NEB SCH ×2 (08:47→20:00)
--- NOTE | 2021-10-14 09:24 | P.PN ---
Date of Service: 10/13/21 Subjective Spoke to family about lung cancer diagnosis. Spoke to a Oncology as well. They will come by and talk to patient later today. I did advise the family to follow up as an outpatient. Review of Systems 10-point ROS is otherwise unremarkable Physical Examination - Vital Signs Reviewed - Physical Exam General: Alert, In no apparent distress, Oriented x3 Respiratory: Clear to auscultation bilaterally, Normal air movement Cardiovascular: Irregular rhythm and rate Gastrointestinal: Normal bowel sounds, Soft and benign, Non-distended, No tenderness Musculoskeletal: No clubbing, No swelling, No tenderness Neurological: Sensation intact, Cranial nerves 3-12 intact Assessment & Plan - Problems (Diagnosis) (1) Lung cancer; squamous cell carcinoma Current Visit: Yes Status: Acute Qualifiers: Laterality: right (2) Chronic systolic heart failure Current Visit: No Status: Acute (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 Continue monitoring cardiac status. Cardiology consultation has been done are ready. 2. Continue physical therapy; strength is improving in mentation has improved 3. Monitor caloric intake 4. Out of bed and to a chair with meals 5. Protein supplementation 6. Monitor hemodynamics closely 7. Patient with squamous cell lung carcinoma. Spoke with family as well as Oncology. 8. GI and DVT prophylaxis Awaiting for placement at [facility]
--- NOTE | 2021-10-14 13:16 | EKG ---
Test Date: 2021-10-14 Test Time: 10:43:48 Senior Portfolio Manager: PIERO MEASUREMENT RESULTS: Intervals: Rate: 79 ME: QRSD: 68 QT: 386 QTc: 442 [place]: P: 92 ME: QRS: 5 T: 121 INTERPRETIVE STATEMENTS: Sinus rhythm with 2nd degree AV block (Mobitz I) with premature supraventricular complexes ST & T wave abnormality, consider lateral ischemia Abnormal ECG Compared to ECG 10/13/2021 13:05:40 Atrial premature complex(es) now present ST (T wave) deviation now present Possible ischemia now present T-wave abnormality no longer present Electronically Signed On 10-14-21 13:15:57 COMMERCIAL APPRAISER by Erick Pedersen
[2021-10-14] MEDS: ENOXAPARIN 30 MG/0.3 ML SQ SCH (17:00)
[2021-10-14] MEDS: ATORVASTATIN 20 MG TAB PO SCH (20:56)
[2021-10-15] MEDS: INSULIN -REGULAR HUMAN 50 UNIT/0.5 ML ML SQ SCH ×4 (07:30→21:08)
[2021-10-15] MEDS: ARFORMOTEROL TARTRATE 15 MCG/2 ML VIAL.NEB NEB SCH ×2 (08:00→20:35)
[2021-10-15] MEDS: GLUCERNA SHAKE 237 ML CAN PO SCH ×2 (09:00→21:00)
[2021-10-15] MEDS ORDERED: CLONIDINE 0.1 MG/PATCH TD SCH (09:00)
[2021-10-15] MEDS: MEMANTINE HCL 10 MG TABLET PO SCH (09:35)
[2021-10-15] MEDS: ASPIRIN EC 81 MG TAB PO SCH (09:35)
[2021-10-15] MEDS: lisinopriL 20 MG TAB PO SCH ×2 (09:35→21:08)
[2021-10-15] MEDS: predniSONE 10 MG TAB PO SCH ×2 (09:35→21:07)
[2021-10-15] MEDS: ENOXAPARIN 30 MG/0.3 ML SQ SCH (18:43)
--- NOTE | 2021-10-15 20:53 | P.PN ---
Date of Service: 10/15/21 Subjective Patient is doing well with no new complaints. Clinical symptoms were stable. Patient denies any complaints. Review of Systems 10-point ROS is otherwise unremarkable Physical Examination - Vital Signs Reviewed - Physical Exam General: Alert, In no apparent distress, Oriented x3 Respiratory: Clear to auscultation bilaterally, Normal air movement Cardiovascular: Irregular rhythm and rate Gastrointestinal: Normal bowel sounds, Soft and benign, Non-distended, No tenderness Musculoskeletal: No clubbing, No swelling, No tenderness Neurological: Sensation intact, Cranial nerves 3-12 intact Assessment & Plan - Problems (Diagnosis) (1) Lung cancer; squamous cell carcinoma Current Visit: Yes Status: Acute Qualifiers: Laterality: right (2) Chronic systolic heart failure Current Visit: No Status: Acute (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 Continue monitoring cardiac status. Cardiology consultation has been done are ready. 2. Continue physical therapy; Speech therapy consultation pending strength is improving & mentation has improved 3. Monitor caloric intake 4. Out of bed and to a chair with meals 5. Protein supplementation with meals; Patient strengths is not where it needs to be to get chemo or radiation at this time. correction facility placement and then outpatient follow up with oncology. 6. Monitor hemodynamics closely 7. Patient with squamous cell lung carcinoma. Spoke with family as well as Oncology. Dr. Finley is to follow with the patient per Dr. Castillo 8. GI and DVT prophylaxis Awaiting for placement at [facility]
--- NOTE | 2021-10-15 20:53 | P.PN ---
Date of Service: 10/14/21 Subjective Patient awaiting for placement. Review of Systems 10-point ROS is otherwise unremarkable Physical Examination - Vital Signs Reviewed - Physical Exam General: Alert, In no apparent distress, Oriented x3 Respiratory: Clear to auscultation bilaterally, Normal air movement Cardiovascular: Irregular rhythm and rate Gastrointestinal: Normal bowel sounds, Soft and benign, Non-distended, No tenderness Musculoskeletal: No clubbing, No swelling, No tenderness Neurological: Sensation intact, Cranial nerves 3-12 intact Assessment & Plan - Problems (Diagnosis) (1) Lung cancer; squamous cell carcinoma Current Visit: Yes Status: Acute Qualifiers: Laterality: right (2) Chronic systolic heart failure Current Visit: No Status: Acute (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 Continue monitoring cardiac status. Cardiology consultation has been done are ready. 2. Continue physical therapy; strength is improving in mentation has improved 3. Monitor caloric intake 4. Out of bed and to a chair with meals 5. Protein supplementation 6. Monitor hemodynamics closely 7. Patient with squamous cell lung carcinoma. Spoke with family as well as Oncology. 8. GI and DVT prophylaxis Awaiting for placement at [facility]
[2021-10-15] MEDS: ATORVASTATIN 20 MG TAB PO SCH (21:07)
[2021-10-16] MEDS: ACETAMINOPHEN 500 MG TAB PO PRN ×2 (06:36→12:50)
[2021-10-16] MEDS: INSULIN -REGULAR HUMAN 50 UNIT/0.5 ML ML SQ SCH ×4 (07:30→21:47)
[2021-10-16] MEDS: ARFORMOTEROL TARTRATE 15 MCG/2 ML VIAL.NEB NEB SCH ×2 (08:25→19:50)
[2021-10-16] MEDS ORDERED: CLONIDINE 0.1 MG/PATCH TD SCH (09:00)
[2021-10-16] MEDS: GLUCERNA SHAKE 237 ML CAN PO SCH ×2 (09:00→21:00)
[2021-10-16] MEDS: ASPIRIN EC 81 MG TAB PO SCH (10:25)
[2021-10-16] MEDS: MEMANTINE HCL 10 MG TABLET PO SCH (10:25)
[2021-10-16] MEDS: lisinopriL 20 MG TAB PO SCH ×2 (10:25→21:48)
[2021-10-16 14:22] LABS: Absolute Lymphocytes (CBC) 0.9 K/uL (0.7-4.9); Basophils % 0.4 % (0-1.3); Hematocrit 34.9 % (36.0-45.0); Lymphocytes % 3.6 % (15.3-44.8); MPV 10.5 fL (7.6-11.3); RBC Red Blood Cell Count 3.46 M/uL (3.86-4.86)
[2021-10-16 14:39] LABS: Albumin 2.4 g/dL (3.4-5.0); Bilirubin Total 0.9 mg/dL (0.2-1.0); Magnesium 1.9 mg/dL (1.8-2.4); Potassium 4.8 mmol/L (3.5-5.1); Protein, Total 7.2 g/dL (6.4-8.2)
[2021-10-16] MEDS ORDERED: METHYLPREDNISOLONE 40 MG INJ IV ONE (14:50)
[2021-10-16] MEDS: NA CHLORIDE 0.9% 1,000 ML IV SCH (15:00)
[2021-10-16] MEDS: ENOXAPARIN 30 MG/0.3 ML SQ SCH (17:00)
--- NOTE | 2021-10-16 18:35 | RAD REPORT ---
EXAM DESCRIPTION: US - UPPER EXTREMITY VENOUS UNILATE - 10/16/2021 6:18 pm CLINICAL HISTORY: Left arm pain and swelling COMPARISON: None. TECHNIQUE: Real-time sonographic evaluation of the left upper extremity deep venous systems was perf ormed. FINDINGS: Normal compressibility, flow augmentation, phasic flow and spontaneous flow are identified in the left upper extremity deep venous system. No intraluminal filling defects seen. Internal jugul ar and subclavian veins are normal as well. Superficial cephalic vein was not well visualized. IMPRESSION: No DVT in the left upper extremity.
[2021-10-16 20:36] LABS: Anisocytosis 2+; Blood Morphology Comment NOTED (NOT SEEN); Platelet Estimate ADEQ; Platelets, Giant OCC; Poikilocytosis SLIGHT; Toxic Granulation PRESENT
[2021-10-16 20:37] LABS: Ovalocytes SLIGHT
--- NOTE | 2021-10-16 21:27 | P.PN ---
Date of Service: 10/16/21 Subjective Patient's daughter are in the room. She had been doing well but today she is having some pain in the left arm. There previously and it is tender to palpation. Feels like it has very stiff as well. Continue with anti- inflammatory. White count maybe related to steroids. Patient also with lung cA. Blood cultures may need to be repeated. Rule out DVT Review of Systems 10-point ROS is otherwise unremarkable Physical Examination - Vital Signs Reviewed - Physical Exam General: Alert, In no apparent distress, Oriented x3 Respiratory: Clear to auscultation bilaterally, Normal air movement Cardiovascular: Irregular rhythm and rate Gastrointestinal: Normal bowel sounds, Soft and benign, Non-distended, No tenderness Musculoskeletal: No clubbing, No swelling, No tenderness Neurological: Sensation intact, Cranial nerves 3-12 intact Assessment & Plan - Problems (Diagnosis) (1) Lung cancer; squamous cell carcinoma Current Visit: Yes Status: Acute Qualifiers: Laterality: right (2) Chronic systolic heart failure Current Visit: No Status: Acute (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 Continue monitoring cardiac status. Cardiology consultation has been done are ready. 2. Continue physical therapy; strength is improving in mentation has improved 3. Monitor caloric intake 4. Out of bed and to a chair with meals 5. Protein supplementation 6. White count maybe related to steroids. Continue monitoring cultures 7. Patient with squamous cell lung carcinoma. Spoke with family as well as Oncology. 8. GI and DVT prophylaxis Awaiting for placement at [facility]
[2021-10-16] MEDS: ATORVASTATIN 20 MG TAB PO SCH (21:48)
[2021-10-17] MEDS: NA CHLORIDE 0.9% 1,000 ML IV SCH ×2 (03:51→03:54)
[2021-10-17] MEDS: HYDRALAZINE HCL 20 MG/ML VIAL IV PRN (04:25)
--- NOTE | 2021-10-17 06:17 | P.PN ---
Subjective Date of Service: 10/17/21 [facility] Chief Complaint: RUL lung mass Subjective: Doing well Physical Examination - Vital Signs Temperature: 97.1 F Blood Pressure: 182/86 Pulse: 69 Respirations: 19 Pulse Ox (%): 97 - Studies Medications List Reviewed: Yes Assessment & Plan Discharge Plan: Other (SNF) Plan to discharge in: 48 Hours Physician Review Additional Text: COVID: Negative CT Chest 07/2021: COMPARISON: Thorax Wo Con dated 01/20/2020 TECHNIQUE: Approximately 100 mL nonionic IV contrast was administered to the patient. All CT scans are performed using dose optimization technique as appropriate and may include automated exposure control or mA/KV adjustment according to patient size. FINDINGS: 8.1 cm mass along the right upper lung. There is a second pleural based mass with central low attenuation in the right lower lung measuring 2.7 cm. Emphysema is present.Coronary artery calcifications. Cardiomegaly. Sternotomy. Possible low-density lesion in the right hepatic lobe. Cholelithiasis. 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 Atherosclerosis. No renal ureteral calculi identified. No bowel obstruction. Bladder is unremarkable. Hysterectomy No bowel obstruction, free air, free fluid or abscess. No worrisome osseous finding. Sternotomy. Multilevel degenerative changes are present in the spine. IMPRESSION: Two masses in the right lung, the larger measuring over 8 cm . This is suspicious for neoplasm. There is a more indeterminate right lower lobe process with a broader differential. Could consider PET-CT or percutaneous biopsy for further evaluation. CXR: COMPARISON: CT chest August 03, portable chest August 03 TECHNIQUE: AP portable chest image was obtained 10/06/2021 3:14 pm . FINDINGS: Chronic interstitial lung disease is present in both lung martinez. Focally more prominent lung parenchymal opacification in the right base believed to be part of the posterior right base mass detailed on the August 03 CT chest study. A larger 8 centimeter mass in the lateral upper right lung field again noted. These masses are not clearly different from prior imaging. No significant failure or volume overload. Sternotomy wires are in place. Heart and vasculature are normal. No measurable pleural effusion and no pneumothorax. No acute bony abnormality seen. No acute aortic findings suspected. IMPRESSION: Two right-side chest masses are present superimposed on chronic fibrotic lung change. No acute chest finding seen. No significant change from the July imaging. 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 Patient appears overall stable. HEENT: Atraumatic, Normocephalic Neck: Supple Respiratory: Clear to auscultation bilaterally, Normal air movement, patient on room air Cardiovascular: Normal sinus rhythm trolled Capillary refill: <2 Seconds Gastrointestinal: Normal bowel sounds Integumentary: No significant lesion, No tenderness/swelling, No erythema Neurological: Normal speech, Normal tone Impression: Hypertensive urgency with underlying primary hypertension Hypercalcemia with abnormal CT scan in the past showing 2 masses in the right lung status post lung biopsy with pathology showing squamous cell carcinoma COPD with history of tobacco use Elevated troponin likely ischemic demand with history of CAD/CABG Medical debility/generalized weakness after fall Atrial fibrillation not on chronic anticoagulation therapy Diabetes mellitus type 2 Hyperlipidemia CKD 3 with hyperkalemia Leukocytosis etiology unknown Plan: Hypertensive urgency with underlying primary hypertension: Overall stable currently on lisinopril. Currently awaiting skilled placement. Episode of second/third degree block: No intervention required. Cardiology recommends further evaluation as an outpatient. Hypercalcemia with abnormal CT scan in the past showing 2 masses in the right lung status post lung biopsy with pathology showing squamous cell carcinoma: Bio psy shows squamous cell carcinoma. Will discuss with pulmonology and oncology about plan of care. COPD with history of tobacco use: Continue Brovana and COPD medication. Di scontinue IV Solu-Medrol and transition to oral steroid. Patient will require medication at discharge. Elevated troponin likely ischemic demand with history of CAD/CABG: Case discussed with cardiology. No intervention required at this time. Continue with above recommendations. Echocardiogram to be obtained. Await recommendations from cardiology concerning EKG/telemetry. Continue aspirin, Lipitor, folic acid and blood pressure medication. Medical debility/generalized weakness after fall: Continue physical therapy and Occupational Therapy. Family wants patient to go to skilled placement. Await approval. Atrial fibrillation not on chronic anticoagulation therapy: Patient currently in sinus rhythm. Cardiology recommends to discontinue metoprolol due to EKG changes. Will monitor closely. Cardiology recommends no chronic anticoagulation therapy. Patient not on chronic anticoagulation therapy due to risk of fall, bleeding and age. Diabetes mellitus type 2: Continue Accu-Cheks and sliding scale. Will monitor dress appropriately. Will review home medication. Hyperlipidemia: Continue Lipitor 20 mg daily CKD 3 hyperkalemia: Recheck potassium. Overall stable. Will monitor closely. Encourage oral intake. If taking good oral intake will Hep-Lock IV fluids Leukocytosis etiology unknown: Patient does not appear septic. Patient did receive Solu-Medrol. This may be the likely cause of the leukocytosis. Will check blood culture, chest x-ray and urine culture. DVT PPX: Lovenox Code status: spoke to Daughter Judit phone number [phone]. Patient remains Full code Discharge Plan: Continue to pursue skilled placement. Will discuss with family Time Spent Managing Pts Care (In Minutes): 55
[2021-10-17] MEDS: INSULIN -REGULAR HUMAN 50 UNIT/0.5 ML ML SQ SCH ×4 (07:30→20:27)
[2021-10-17] MEDS: ARFORMOTEROL TARTRATE 15 MCG/2 ML VIAL.NEB NEB SCH ×2 (09:00→20:20)
[2021-10-17] MEDS: GLUCERNA SHAKE 237 ML CAN PO SCH ×2 (09:00→20:28)
[2021-10-17 09:56] LABS: Magnesium 1.9 mg/dL (1.8-2.4); Potassium 4.4 mmol/L (3.5-5.1)
[2021-10-17 10:03] LABS: Absolute Lymphocytes (CBC) 1.2 K/uL (0.7-4.9); Basophils % 0.1 % (0-1.3); Hematocrit 34.6 % (36.0-45.0); Lymphocytes % 4.1 % (15.3-44.8); MPV 11.4 fL (7.6-11.3); RBC Red Blood Cell Count 3.39 M/uL (3.86-4.86)
[2021-10-17] MEDS: MEMANTINE HCL 10 MG TABLET PO SCH (10:18)
[2021-10-17] MEDS: ASPIRIN EC 81 MG TAB PO SCH (10:19)
[2021-10-17] MEDS: lisinopriL 20 MG TAB PO SCH ×2 (10:19→20:26)
--- NOTE | 2021-10-17 14:56 | RAD REPORT ---
EXAM DESCRIPTION: Kavithat Single View10/17/2021 2:28 pm CLINICAL HISTORY: Leukocytosis COMPARISON: October 10, 2021 FINDINGS: Overall no significant change in the right lung masses. A lung consolidation is not seen. Heart remains enlarged. Postsurgical changes involve the chest
[2021-10-17] MEDS: ACETAMINOPHEN 500 MG TAB PO PRN (15:21)
--- NOTE | 2021-10-17 15:36 | PN ---
Date of Progress Note: 10/09/2021 Ms. Leiva was initially admitted with cellulitis requiring incision and drainage. I was recalled on 10/09/2021 because of further arrhythmia. 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 I actually discussed the case with Electrophysiology and they agreed that this is more of the Wenckebach. She is not hypotensive with her arrhythmia, no hemodynamic compromise and no symptoms of chest pain or syncope or palpitation. H er heart rate occasionally be on the low side and I recommend we stop the metoprolol and consider sto pping the clonidine. Certainly not a candidate for pacemaker at this point. SORAYA/RENE Voice ID: [id number] Report ID: [id number]
[2021-10-17] MEDS: ENOXAPARIN 30 MG/0.3 ML SQ SCH (17:00)
[2021-10-17] MEDS: ATORVASTATIN 20 MG TAB PO SCH (20:27)
[2021-10-18 05:41] LABS: Absolute Lymphocytes (CBC) 1.2 K/uL (0.7-4.9); Basophils % 0.3 % (0-1.3); Hematocrit 35.2 % (36.0-45.0); Lymphocytes % 4.1 % (15.3-44.8); MPV 11.3 fL (7.6-11.3); RBC Red Blood Cell Count 3.48 M/uL (3.86-4.86)
[2021-10-18 05:52] LABS: Magnesium 2.3 mg/dL (1.8-2.4); Potassium 4.1 mmol/L (3.5-5.1)
--- NOTE | 2021-10-18 06:02 | P.PN ---
Subjective Date of Service: 10/18/21 Primary Care Provider: [place] [facility] Chief Complaint: RUL lung mass Subjective: Demented Physical Examination - Vital Signs Temperature: 97.7 F Blood Pressure: 140/60 Pulse: 80 Respirations: 16 Pulse Ox (%): 96 - Studies Medications List Reviewed: Yes Assessment & Plan Discharge Plan: Other (long term facility) Plan to discharge in: 48 Hours Physician Review Additional Text: COVID: Negative CT Chest 07/2021: COMPARISON: Thorax Wo Con dated 01/20/2020 TECHNIQUE: Approximately 100 mL nonionic IV contrast was administered to the patient. All CT scans are performed using dose optimization technique as appropriate and may include automated exposure control or mA/KV adjustment according to patient size. FINDINGS: 8.1 cm mass along the right upper lung. There is a second pleural based mass with central low attenuation in the right lower lung measuring 2.7 cm. Emphysema is present.Coronary artery calcifications. Cardiomegaly. Sternotomy. Possible low-density lesion in the right hepatic lobe. Cholelithiasis. 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 Atherosclerosis. No renal ureteral calculi identified. No bowel obstruction. Bladder is unremarkable. Hysterectomy No bowel obstruction, free air, free fluid or abscess. No worrisome osseous finding. Sternotomy. Multilevel degenerative changes are present in the spine. IMPRESSION: Two masses in the right lung, the larger measuring over 8 cm . This is suspicious for neoplasm. There is a more indeterminate right lower lobe process with a broader differential. Could consider PET-CT or percutaneous biopsy for further evaluation. CXR: COMPARISON: CT chest August 03, portable chest August 03 TECHNIQUE: AP portable chest image was obtained 10/06/2021 3:14 pm . FINDINGS: Chronic interstitial lung disease is present in both lung martinez. Focally more prominent lung parenchymal opacification in the right base believed to be part of the posterior right base mass detailed on the August 03 CT chest study. A larger 8 centimeter mass in the lateral upper right lung field again noted. These masses are not clearly different from prior imaging. No significant failure or volume overload. Sternotomy wires are in place. Heart and vasculature are normal. No measurable pleural effusion and no pneumothorax. No acute bony abnormality seen. No acute aortic findings suspected. IMPRESSION: Two right-side chest masses are present superimposed on chronic fibrotic lung change. No acute chest finding seen. No significant change from the July imaging. 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 TECHNIQUE: Real-time sonographic evaluation of the left upper extremity deep ve nous systems was performed. FINDINGS: Normal compressibility, flow augmentation, phasic flow and spontaneous flow are identified in the left upper extremity deep venous system. No intraluminal filling defects seen. Internal jugular and subclavian veins are normal as well. Superficial cephalic vein was not well visualized. IMPRESSION: No DVT in the left upper extremity. Follow up CXR 10/17/2021: COMPARISON: October 10, 2021 FINDINGS: Overall no significant change in the right lung masses. A lung consolidation is not seen. Heart remains enlarged. Postsurgical changes involve the chest Physical exam: General: Alert, Oriented x1, patient with dementia. Patient appears overall stable. HEENT: Atraumatic, Normocephalic Neck: Supple Respiratory: Clear to auscultation bilaterally, Normal air movement, patient on room air Cardiovascular: Normal sinus rhythm trolled Capillary refill: <2 Seconds Gastrointestinal: Normal bowel sounds Integumentary: No significant lesion, No tenderness/swelling, No erythema Neurological: Normal speech, Normal tone Impression: Hypertensive urgency with underlying primary hypertension Hypercalcemia with abnormal CT scan in the past showing 2 masses in the right lung status post lung biopsy with pathology showing squamous cell carcinoma COPD with history of tobacco use Elevated troponin likely ischemic demand with history of CAD/CABG Medical debility/generalized weakness after fall Atrial fibrillation not on chronic anticoagulation therapy Diabetes mellitus type 2 Hyperlipidemia CKD 3 with hyperkalemia Leukocytosis etiology unknown Hypernatremia Plan: Hypertensive urgency with underlying primary hypertension: Overall stable currently on lisinopril. Currently awaiting skilled placement. Episode of second/third degree block: No intervention required. Cardiology recommends further evaluation as an outpatient. Hypercalcemia with abnormal CT scan in the past showing 2 masses in the right lung status post lung biopsy with pathology showing squamous cell carcinoma: Biopsy shows squamous cell carcinoma. Oncology recommends outpatient evaluation for possible chemotherapy but due to her current status patient may not be a candidate. Care discussed in detail with daughter. Daughter plans to see how she does with skilled placement. If she does well then patient may be able to go and see oncology for recommendations. If she declines she would consider hospice. COPD with history of tobacco use: Continue Brovana and COPD medication. IV Solu-Medrol discontinued. Patient will require medication at discharge. Elevated troponin likely ischemic demand with history of CAD/CABG: Case discussed with cardiology. No intervention recommended by cardiology at this time.. Continue aspirin, Lipitor, folic acid and blood pressure medication. Medical debility/generalized weakness after fall: Continue physical therapy and Occupational Therapy. Family wants patient to go to skilled placement. Await approval. Atrial fibrillation not on chronic anticoagulation therapy: Patient currently in sinus rhythm. Cardiology recommends to discontinue metoprolol due to EKG erma nges. Will monitor closely. Cardiology recommends no chronic anticoagulation therapy. Patient not on chronic anticoagulation therapy due to risk of fall, bleeding and age. Diabetes mellitus type 2: Continue Accu-Cheks and sliding scale. Will monitor dress appropriately. Will review home medication. Hyperlipidemia: Continue Lipitor 20 mg daily CKD 3 hyperkalemia: Potassium improved. Overall stable. Will monitor closely. Encourage oral intake. Leukocytosis etiology unknown: Patient does not appear septic. Patient afebrile. X-ray shows no pneumonia. Urine culture pending. Blood cultures obtained. Will consult infectious disease for recommendations. Patient not on antibiotics at this time. We will monitor this closely. Hypernatremia: We will start D5W. Will monitor closely. DVT PPX: Lovenox Code status: spoke to Daughter Judit phone number [phone]. Patient remains Full code Discharge Plan: Spoke with daughter. Patient remains full code. Daughter wants patient to go to a skilled facility. Time Spent Managing Pts Care (In Minutes): 55
[2021-10-18] MEDS: D5 0.45 NS 1,000 ML IV SCH (06:16)
[2021-10-18] MEDS: INSULIN -REGULAR HUMAN 50 UNIT/0.5 ML ML SQ SCH ×4 (07:30→21:29)
[2021-10-18] MEDS: ARFORMOTEROL TARTRATE 15 MCG/2 ML VIAL.NEB NEB SCH ×2 (08:00→17:20)
[2021-10-18 08:21] LABS: Blood Morphology Comment NOT SEEN (NOT SEEN); Platelet Estimate ADEQ; Platelets, Giant FEW
[2021-10-18] MEDS: GLUCERNA SHAKE 237 ML CAN PO SCH ×2 (09:00→21:00)
[2021-10-18] MEDS: ASPIRIN EC 81 MG TAB PO SCH (11:25)
[2021-10-18] MEDS: MEMANTINE HCL 10 MG TABLET PO SCH (11:25)
[2021-10-18] MEDS: lisinopriL 20 MG TAB PO SCH ×2 (11:26→21:28)
--- NOTE | 2021-10-18 12:40 | P.CNS ---
Date of Consult: 10/18/21 Primary Care Provider: [facility] Chief Complaint: RUL lung mass History of Present Illness: The patient is an 81-year-old female with a past medical history of dementia, atrial fibrillation, diabetes mellitus type 2, hypertension, hyperlipidemia, history of CVA, and a right-sided lung mass who presented to the emergency department secondary to chest pain and generalized weakness. Patient initially presented to the hospital on 10/06. Chest x-ray showed two right-sided lung masses, one in the posterior lung base and one in the lateral upper lobe. Patient underwent lung biopsy on 10/10. Procedure went well with no complications. Infectious disease has been consulted as the patient has developed progressive leukocytosis. Patient initially had normal WBC on admission however labs demonstrated leukocytosis from 10/10 up until today. Patient has remained afebrile, procalcitonin mildly elevated at 0.19. Due to patient's history of dementia ROS/medical history is difficult to obtain. On admission patient was treated for urinary tract infection with Rocephin however urine culture was negative and as such antibiotics were discontinued. Allergies Penicillins Adverse Reaction (Verified 06/19/20 04:11) Itching/Hives/Rash Home Medications: Aspirin [Aspirin EC 81 MG] 1 tab PO DAILY 09/08/15 Atorvastatin Calcium 40 mg PO DAILY 09/10/18 Gabapentin [Neurontin] 100 mg PO QID PRN 10/08/21 Insulin NPH Hum/Reg Insulin Hm [Humulin 70-30 Vial] 20 units SQ BID 10/08/21 Lisinopril [Zestril] 30 mg PO DAILY 10/08/21 Memantine HCl 5 mg PO DAILY 10/08/21 Metformin HCl 500 mg PO DAILY 10/08/21 Metoprolol Tartrate 12.5 mg PO BID 10/08/21 Solifenacin [Vesicare*] 5 mg PO DAILY 10/08/21 Tramadol HCl/Acetaminophen [Tramadol-Acetaminophn 37.5-325] 37.5 - 325 mg PO PRN 10/08/21 - Past Medical/Surgical History Diabetic: Yes -: IDDM -: HTN -: HIGH CHOLESTEROL -: CVA -: Dementia -: CRF -: HYSTERECTOMY -: heart bypass -: abd sx Psychosocial/ Personal History: Patient lives at home with her 2 daughters - Family History Mother Medical History: Cancer - Social History Smoking Status: Unknown if ever smoked Alcohol use: No CD- Drugs: No Caffeine use: Yes Place of Residence: Home Review of Systems 10-point ROS is otherwise unremarkable Physical Examination Temp Pulse Resp BP Pulse Ox 97.7 F 80 16 140/60 96 10/18/21 10:55 10/18/21 10:55 10/18/21 10:55 10/18/21 10:55 10/18/21 10:55 General: Mild distress (Very tearful during patient interview. Very concerned about her health.), Confused HEENT: Atraumatic, Normocephalic Neck: Supple Respiratory: Clear to auscultation bilaterally, Normal air movement Cardiovascular: Normal pulses, Normal S1 S2 Gastrointestinal: Normal bowel sounds, Non-distended Musculoskeletal: No clubbing, No swelling, No contractures, No erythema, No tenderness Integumentary: No rashes, No breakdown, No significant lesion, No tenderness/swelling Conclusions/Impression: Assessment/plan Leukocytosis of unknown origin Patient initially noted have leukocytosis on 10/10. Since then WBC has steadily [id number]-->29.1. Patient remains afebrile. Possible sources include: C diff:patient noted to have diarrhea for the past few days, C diff test pending. Perineoplastic leukocytosis: Patient noted to have squamous cell carcinoma. Had a lung biopsy on 10/10, pending results. Obstructive pneumonia secondary to squamous cell carcinoma/COPD: CT chest pending. Hold off on starting empiric antibiotics until C diff results are back. If C diff negative, recommend starting cefepime and Flagyl. Urine culture shows no growth, blood cultures obtained on 10/17 pending. Procal mildly elevated at 0.19. And cancer CKD stage 3 Protein caloric malnutrition Diabetes Anemia -medical management per primary team -continue to monitor CBC and BMP -continue to monitor for signs of infection Plan of care discussed with Dr. Hyde Thank you for consultation.
[2021-10-18] MEDS: ENOXAPARIN 30 MG/0.3 ML SQ SCH (17:00)
[2021-10-18] MEDS: ATORVASTATIN 20 MG TAB PO SCH (21:28)
[2021-10-19] MEDS: D5 0.45 NS 1,000 ML IV SCH (02:00)
--- NOTE | 2021-10-19 06:01 | P.PN ---
Subjective Date of Service: 10/19/21 Primary Care Provider: [place] dylon Chief Complaint: RUL lung mass Subjective: Demented, Other (Overall stable. Unchanged. Diarrhea improved.) Physical Examination - Vital Signs Temperature: 97.3 F Blood Pressure: 147/58 Pulse: 73 Respirations: 18 Pulse Ox (%): 98 - Studies Medications List Reviewed: Yes Assessment & Plan Discharge Plan: Other (To nursing facility) Plan to discharge in: 24 Hours Physician Review Additional Text: COVID: Negative CT Chest 07/2021: COMPARISON: Thorax Wo Con dated 01/20/2020 TECHNIQUE: Approximately 100 mL nonionic IV contrast was administered to the patient. All CT scans are performed using dose optimization technique as appropriate and may include automated exposure control or mA/KV adjustment according to patient size. FINDINGS: 8.1 cm mass along the right upper lung. There is a second pleural based mass with central low attenuation in the right lower lung measuring 2.7 cm. Emphysema is present.Coronary artery calcifications. Cardiomegaly. Sternotomy. Possible low-density lesion in the right hepatic lobe. Cholelithiasis. 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 Atherosclerosis. No renal ureteral calculi identified. No bowel obstruction. Bladder is unremarkable. Hysterectomy No bowel obstruction, free air, free fluid or abscess. No worrisome osseous finding. Sternotomy. Multilevel degenerative changes are present in the spine. IMPRESSION: Two masses in the right lung, the larger measuring over 8 cm . This is suspicious for neoplasm. There is a more indeterminate right lower lobe process with a broader differential. Could consider PET-CT or percutaneous biopsy for further evaluation. CXR: COMPARISON: CT chest August 03, portable chest August 03 TECHNIQUE: AP portable chest image was obtained 10/06/2021 3:14 pm . FINDINGS: Chronic interstitial lung disease is present in both lung martinez. Focally more prominent lung parenchymal opacification in the right base believed to be part of the posterior right base mass detailed on the August 03 CT chest study. A larger 8 centimeter mass in the lateral upper right lung field again noted. These masses are not clearly different from prior imaging. No significant failure or volume overload. Sternotomy wires are in place. Heart and vasculature are normal. No measurable pleural effusion and no pneumothorax. No acute bony abnormality seen. No acute aortic findings suspected. IMPRESSION: Two right-side chest masses are present superimposed on chronic fibrotic lung change. No acute chest finding seen. No significant change from the July imaging. 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 TECHNIQUE: Real-time sonographic evaluation of the left upper extremity deep venous systems was performed. FINDINGS: Normal compressibility, flow augmentation, phasic flow and spontaneous flow are identified in the left upper extremity deep venous system. No intraluminal filling defects seen. Internal jugular and subclavian veins are normal as well. Superficial cephalic vein was not well visualized. IMPRESSION: No DVT in the left upper extremity. Follow up CXR 10/17/2021: COMPARISON: October 10, 2021 FINDINGS: Overall no significant change in the right lung masses. A lung consolidation is not seen. Heart remains enlarged. Postsurgical changes involve the chest CT Chest: COMPARISON: Chest Abd Pelvis Wo Con dated 08/03/2021; Thorax Wo Con dated 01/20/2020; Lung Biopsy Perc w/CT dated 10/10/2021 TECHNIQUE: Axial 5 mm thick images of the chest were obtained without IV contrast. All CT scans are performed using dose optimization technique as appropriate and may include automated exposure control or mA/KV adjustment according to patient size. FINDINGS: The large lobulated, recently biopsied mass of the posterolateral right chest has enlarged since the August 03 comparison. The mass is 9.1 x 4.5 cm compared to 18.1 x 3.3 centimeter size in July. Furthermore, there is now invasion of the chest wall with bone destructive changes seen in the right f ourth and fifth ribs. The pleural abutting mass in the posterior lower right lung field approximately 3 cm has not changed. Trace amount of pleural fluid seen in the right hemithorax. No new or progressive left lung field finding. No pneumothorax. Abnormal mediastinal lymphadenopathy pattern not significantly different from the July study. Full extent is difficult to characterize in the absence of IV contrast. No gross aortic dilatation. Dense aortic calcifications are present. There are also dense coronary artery calcifications. No pericardial effusion. No abnormal axillary lymphadenopathy. No adrenal masses are seen in the upper abdomen. Liver assessment is limited. Low-density mass in the posterior right lobe is again noted. IMPRESSION: The large malignant mass of the posterolateral upper right chest has enlarged since July and is now invading the chest wall with bone destruction in the third and fourth ribs. Approximately 3 centimeter pleural abutting mass in the posterior lower right lung field has not changed. Mediastinal and hilar lymphadenopathy pattern not clearly different. Physical exam: General: Alert, Oriented x1, patient with dementia. Patient appears overall stable. HEENT: Atraumatic, Normocephalic Neck: Supple Respiratory: Clear to auscultation bilaterally, Normal air movement, patient on room air Cardiovascular: Normal sinus rhythm trolled Capillary refill: <2 Seconds Gastrointestinal: Normal bowel sounds Integumentary: No significant lesion, No tenderness/swelling, No erythema Neurological: Normal speech, Normal tone Impression: Hypertensive urgency with underlying primary hypertension Hypercalcemia with abnormal CT scan large malignant mass of the posterior lateral upper right chest enlarged since July now invading the chest wall with bony destruction to the third and fourth ribs status post lung biopsy with pathology showing squamous cell carcinoma COPD with history of tobacco use Elevated troponin likely ischemic demand with history of CAD/CABG Medical debility/generalized weakness after fall Atrial fibrillation not on chronic anticoagulation therapy Diabetes mellitus type 2 Hyperlipidemia CKD 3 with hypernatremia and hypercalcemia Leukocytosis etiology unknown likely related to underlying cancer Dementia Plan: Hypertensive urgency with underlying primary hypertension: Blood pressure stable. Currently on lisinopril 20 mg 1 pill twice daily. Patient with hypernatremia and hypercalcemia. This is likely related to her poor oral intake and lung cancer. Case discussed in detail with pulmonology. Pulmonology will provide pamidronate x1. Continue D5W. CT scan shows larger malignant mass in the posterior lateral upper right chest wall. Larger since July. Now invading chest wall with bony destruction to the third and fourth ribs. Patient prognosis poor. After discussion with pulmonology and nephrology hospice is the best option for patient. This was discussed in detail with the daughter. Daughter plans to address this in detail with other children. They will make a final decision on whether hospice will be pursued. This is likely. Will need to consider hospice at home or hospice at the care home. Await final decision by family. Episode of second/third degree block: No intervention required. Cardiology recommends further evaluation as an outpatient. Hypercalcemia with abnormal CT scan large malignant mass of the posterior lateral upper right chest enlarged since July now invading the chest wall with bony destruction to the third and fourth ribs status post lung biopsy with pathology showing squamous cell carcinoma: Biopsy shows squamous cell carcinoma. Continue with above plan of care. Family to decide on hospice. Will reach out again to them again later today for final decision. COPD with history of tobacco use: Continue Brovana and COPD medication. Patient will require medication at discharge. Elevated troponin likely ischemic demand with history of CAD/CABG: Case discussed with cardiology. No intervention recommended by cardiology at this time.. Continue aspirin, Lipitor, folic acid and blood pressure medication. Medical debility/generalized weakness after fall: Continue physical therapy and Occupational Therapy. Family wants patient to go to skilled placement. Await approval. Atrial fibrillation not on chronic anticoagulation therapy: Patient currently in sinus rhythm. Cardiology recommends to discontinue metoprolol due to EKG changes. Will monitor closely. Cardiology recommends no chronic anticoagulation therapy. Patient not on chronic anticoagulation therapy due to risk of fall, bleeding and age. Diabetes mellitus type 2: Continue Accu-Cheks and sliding scale. Will monitor dress appropriately. Will review home medication. Hyperlipidemia: Continue Lipitor 20 mg daily CKD 3 with hypernatremia and hypercalcemia: Pamidronate given. Continue D5W. Recheck lab later today. Await recommendations from nephrology. Leukocytosis etiology unknown likely related to underlying cancer: Patient is not septic. White count improved. Case discussed at length with pulmonology. Pulmonology suspects this may be related to her underlying lung cancer. CT scan chest obtained. Case also discussed with infectious disease. No antibiotic therapy at this time required. Diarrhea improved. Continue to discuss with pulmonology and infectious disease. Dementia: Continue with Namenda DVT PPX: Lovenox Code status: Spoke to Daughter Judit the other day. Phone number [phone]. Patient remains Full code but considering DO NOT RESUSCITATE and possible hospice. Discharge Plan: Case discussed in detail with the daughter. Daughter to reach out to other family members to make a final decision on possibly hospice. Time Spent Managing Pts Care (In Minutes): 55
[2021-10-19 06:18] LABS: Absolute Lymphocytes (CBC) 0.7 K/uL (0.7-4.9); Basophils % 0.1 % (0-1.3); Hematocrit 33.6 % (36.0-45.0); Lymphocytes % 3.3 % (15.3-44.8); MPV 11.2 fL (7.6-11.3); RBC Red Blood Cell Count 3.32 M/uL (3.86-4.86)
[2021-10-19 06:30] LABS: Magnesium 2.4 mg/dL (1.8-2.4); Potassium 3.6 mmol/L (3.5-5.1)
[2021-10-19 07:11] LABS: Blood Morphology Comment NOT SEEN (NOT SEEN); Platelet Estimate ADEQ; Toxic Granulation 2+; White Blood Cell Scan OK (OK)
[2021-10-19] MEDS: ARFORMOTEROL TARTRATE 15 MCG/2 ML VIAL.NEB NEB SCH ×2 (08:02→19:50)
--- NOTE | 2021-10-19 08:15 | EKG ---
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: RT MEASUREMENT RESULTS: Intervals: Rate: 50 HI: 128 QRSD: 90 QT: 422 QTc: 384 [place]: P: 83 HI: 128 QRS: -9 T: 132 INTERPRETIVE STATEMENTS: Sinus rhythm with 2nd degree AV block (Mobitz II) Minimal voltage criteria for LVH, may be normal variant T wave abnormality, consider lateral ischemia Abnormal ECG Compared to ECG 10/14/2021 10:43:48 Left ventricular hypertrophy now present T-wave abnormality now present Atrial premature complex(es) no longer present ST (T wave) deviation no longer present Possible ischemia still present Electronically Signed On 10-19-21 08:04:38 BROOM BUNDLER by Erick Pedersen
[2021-10-19] MEDS ORDERED: PAMIDRONATE DISOD 30 MG VIAL IV ONE (08:22)
[2021-10-19] MEDS ORDERED: D5W 1,000 ML IV SCH ×2 (09:00)
[2021-10-19] MEDS: GLUCERNA SHAKE 237 ML CAN PO SCH ×2 (09:00→20:24)
[2021-10-19] MEDS ORDERED: KCL 20 MEQ/100 mL IVPB 20 MEQ/100 ML BAG IV SCH (09:00)
[2021-10-19] MEDS ORDERED: PAMIDRONATE 60 MG in NA CHLORIDE 0.9% 500 ML IV ONE (09:00)
--- NOTE | 2021-10-19 09:26 | RAD REPORT ---
EXAM DESCRIPTION: CT - Thorax Wo Con - 10/19/2021 8:43 am CLINICAL HISTORY: LUNG CA, LEUKOCYTOSIS, EVALUATE POSTOB COMPARISON: Chest Abd Pelvis Wo Con dated 08/03/2021; Thorax Wo Con dated 01/20/2020; Lung Biopsy Perc w/CT dated 10/10/2021 TECHNIQUE: Axial 5 mm thick images of the chest were obtained without IV contrast. All CT scans are performed using dose optimization technique as appropriate and may include automated exposure control or mA/KV adjustment according to patient size. FINDINGS: The large lobulated, recently biopsied mass of the posterolateral right chest has enlarged since the August 03 comparison. The mass is 9.1 x 4.5 cm compared to 18.1 x 3.3 centimeter size in July. Furthermore, there is now invasion of the chest wall with bone destructive changes seen i n the right fourth and fifth ribs. The pleural abutting mass in the posterior lower right lung field approximately 3 cm has not changed. Trace amount of pleural fluid seen in the right hemithorax. No ne w or progressive left lung field finding. No pneumothorax. Abnormal mediastinal lymphadenopathy pattern not significantly different from the July study. Fu ll extent is difficult to characterize in the absence of IV contrast. No gross aortic dilatation. Den se aortic calcifications are present. There are also dense coronary artery calcifications. No pericar dial effusion. No abnormal axillary lymphadenopathy. No adrenal masses are seen in the upper abdomen. Liver assessm ent is limited. Low-density mass in the posterior right lobe is again noted. IMPRESSION: The large malignant mass of the posterolateral upper right chest has enlarged since Jul ember and is now invading the chest wall with bone destruction in the third and fourth ribs. Approximately 3 centimeter pleural abutting mass in the posterior lower right lung field has not bonilla ged. Mediastinal and hilar lymphadenopathy pattern not clearly different.
[2021-10-19] MEDS: lisinopriL 20 MG TAB PO SCH ×2 (09:56→20:22)
[2021-10-19] MEDS: MEMANTINE HCL 10 MG TABLET PO SCH (09:57)
[2021-10-19] MEDS: ASPIRIN EC 81 MG TAB PO SCH (09:58)
[2021-10-19] MEDS: INSULIN -REGULAR HUMAN 50 UNIT/0.5 ML ML SQ SCH ×4 (09:58→20:23)
[2021-10-19] MEDS: D5W 1,000 ML IV SCH ×2 (10:03→18:40)
--- NOTE | 2021-10-19 11:17 | P.CNS ---
Date of Consult: 10/19/21 Reason for Consult: Hypercalcemia, hypernatremia Requesting Physician: Jorge Fraire Primary Care Provider: [facility] (formerly [facility] Chief Complaint: RUL lung mass History of Present Illness: 81AAF w/ PMHx of CKD3 presumed to be 2/2 Htn/DM, Htn, HLD, DM2, afib not on chronic AC, hx of CVA, dementia, fall event 1 wk prior to adm, hx of cig smoking, COPD, & hx of lung mass who p/w chest pain & gen weakness, found to have pyuria, renal failure, accelerated Htn, & hypercalcemia. Baseline SCr 0.9-1.0. SCr worsened to 1.5 but now improved to 1.1. Her renal fxn has improved since admission. Urine culture neg. BP is now better controlled. Her corrected serum Ca is 12.6. She received IV fluids & IV Pamidronate today. She also had hypernatremia w/ corrected serum Na at 152 today. She is receiving D5W gtt. Allergies Penicillins Adverse Reaction (Verified 06/19/20 04:11) Itching/Hives/Rash Home Medications: Aspirin [Aspirin EC 81 MG] 1 tab PO DAILY 09/08/15 Atorvastatin Calcium 40 mg PO DAILY 09/10/18 Gabapentin [Neurontin] 100 mg PO QID PRN 10/08/21 Insulin NPH Hum/Reg Insulin Hm [Humulin 70-30 Vial] 20 units SQ BID 10/08/21 Lisinopril [Zestril] 30 mg PO DAILY 10/08/21 Memantine HCl 5 mg PO DAILY 10/08/21 Metformin HCl 500 mg PO DAILY 10/08/21 Metoprolol Tartrate 12.5 mg PO BID 10/08/21 Solifenacin [Vesicare*] 5 mg PO DAILY 10/08/21 Tramadol HCl/Acetaminophen [Tramadol-Acetaminophn 37.5-325] 37.5 - 325 mg PO PRN 10/08/21 - Past Medical/Surgical History Diabetic: Yes -: IDDM -: HTN -: HIGH CHOLESTEROL -: CVA -: Dementia -: CRF -: HYSTERECTOMY -: heart bypass -: abd sx Psychosocial/ Personal History: Patient lives at home with her 2 daughters - Family History Mother Medical History: Cancer - Social History Smoking Status: Unknown if ever smoked Alcohol use: No CD- Drugs: No Caffeine use: Yes Place of Residence: Home Review of Systems General: Weakness Eyes: Unremarkable ENT: Unremarkable Respiratory: Unremarkable Cardiovascular: Chest Pain Gastrointestinal: Unremarkable Genitourinary: Unremarkable Musculoskeletal: Unremarkable Integumentary: Unremarkable Neurological: Weakness Lymphatics: Unremarkable Physical Examination Temp Pulse Resp BP Pulse Ox 97.3 F 73 18 147/58 H 98 10/19/21 09:11 10/19/21 09:56 10/19/21 09:11 10/19/21 09:56 10/19/21 09:11 General: Other (Appears as her stated age) HEENT: Atraumatic, Normocephalic Neck: Supple, JVD not distended Respiratory: Other (Symmetric chest expansion) Cardiovascular: No rubs, No murmurs Gastrointestinal: Soft and benign, Non-distended Musculoskeletal: No clubbing Integumentary: No warmth Neurological: Normal speech, Normal tone Urinary: Other (No bladder distention) External genitalia: Deferred Rectal: Deferred Conclusions/Impression: # Hypercalcemia, non-PTH mediated, likely 2/2 lung SqCC iPTH appropriately in the low normal range 25OHD 29.8, not elevated F/u 1/25 OH2D, PTH-rP +Serum protein gap; 1+ proteinuria--> f/u random UPCR to assess for urine protein gap; f/u SPEP, CATHRYN, K:L SFLC to rule out plasma cell dyscrasia Pamidronate IV received on 10/19; redose after 7d if needed Cont IV fluids Hold giving Calcitonin as this med is super expensive # Hypernatremia 2/2 dec po free water intake Corrected serum Na 152 Wt 54 kg Total body water 24.3L Free water deficit 2.1L plus ongoing losses (insensibles 0.5L/d + urine water loss 1.5L/d) BNP elevated at 759, trop elevated Continue D5W gtt at 150 cc/hr # AVRIL 2/2 prerenal state, improving; on CKD3 Baseline SCr 0.9-1.0 SCr worsened to 1.5 but now improved to 1.1 IV hydration as above # Lung SqCC Hx of cig smoking, quit 15 yrs ago; hx of COPD Chest CT showed larger malignant mass in the posterior lateral upper right chest wall larger than in July 2021 w/ chest wall invasion w/ bony destruction of the third and fourth ribs Pamidronate received on 10/19 Per other services # Accelerated Htn; hx of CAD s/p CABG; afib not on anticoagulation therapy BP now better controlled Cont cardioprudent meds # Second/third degree block Further eval as outpt per Cardiology recs Metoprolol d/c'ed # DM2 Mngt per primary team # Dementia On Namenda # Debility, recent fall PT/OT # Dispo DNR Transition to hospice upon hosp dc
--- NOTE | 2021-10-19 11:52 | P.PN ---
Subjective Date of Service: 10/19/21 Primary Care Provider: [facility] Chief Complaint: RUL lung mass Patient seen examined at bedside, still having some diarrhea with mucus present in stool. Review of Systems 10-point ROS is otherwise unremarkable Physical Examination - Vital Signs Temperature: 97.3 F Blood Pressure: 147/58 Pulse: 73 Respirations: 18 Pulse Ox (%): 98 - Studies Laboratory Last Values WBC 6.50 K/uL (4.3-10.9) 10/06/21 15:00 RBC 3.86 M/uL (3.86-4.86) 10/06/21 15:00 Hgb 12.4 g/dL (12.0-15.0) 10/06/21 15:00 Hct 38.4 % (36.0-45.0) 10/06/21 15:00 MCV 99.6 fL (80-100) 10/06/21 15:00 MCH 32.1 pg (27.0-35.0) 10/06/21 15:00 MCHC 32.2 g/dL (32.0-36.0) 10/06/21 15:00 RDW 18.7 % (12.1-15.2) H 10/06/21 15:00 Plt Count 223 K/uL (152-406) 10/06/21 15:00 MPV 10.3 fL (7.6-11.3) 10/06/21 15:00 Neutrophils % 70.7 % (41.7-73.7) 10/06/21 15:00 Lymphocytes % 21.3 % (15.3-44.8) 10/06/21 15:00 Monocytes % 6.5 % (3.3-12.3) 10/06/21 15:00 Eosinophils % 0.8 % (0-4.4) 10/06/21 15:00 Basophils % 0.7 % (0-1.3) 10/06/21 15:00 Absolute Neutrophils 4.6 K/uL (1.8-8.0) 10/06/21 15:00 Absolute Lymphocytes 1.4 K/uL (0.7-4.9) 10/06/21 15:00 Absolute Monocytes 0.4 K/uL (0.1-1.3) 10/06/21 15:00 Absolute Eosinophils 0.0 K/uL (0-0.5) 10/06/21 15:00 Absolute Basophils 0.0 K/uL (0-0.5) 10/06/21 15:00 PT 13.7 SECONDS (9.5-12.5) H 10/06/21 15:45 INR 1.19 10/06/21 15:45 Sodium 142 mmol/L (136-145) 10/06/21 15:45 Potassium 4.9 mmol/L (3.5-5.1) 10/06/21 15:45 Chloride 110 mmol/L (98-107) H 10/06/21 15:45 Carbon Dioxide 28 mmol/L (21-32) 10/06/21 15:45 BUN 27 mg/dL (7-18) H 10/06/21 15:45 Creatinine 1.35 mg/dL (0.55-1.3) H 10/06/21 15:45 Estimated GFR 46 mL/min (=/>90) L 10/06/21 15:45 Glucose 134 mg/dL (74-106) H 10/06/21 15:45 Calcium 11.0 mg/dL (8.5-10.1) H 10/06/21 15:45 Magnesium 2.2 mg/dL (1.8-2.4) 10/06/21 15:45 Total Bilirubin 0.8 mg/dL (0.2-1.0) 10/06/21 15:45 Direct Bilirubin 0.2 mg/dL (0-0.2) 10/06/21 15:45 AST 28 U/L (15-37) 10/06/21 15:45 ALT 22 U/L (12-78) 10/06/21 15:45 Alkaline Phosphatase 66 U/L (45-117) 10/06/21 15:45 Rapid Troponin I 0.04 ng/mL (0.0-0.045) 10/06/21 15:45 NT-Pro-B Natriuret Pep 759 pg/mL (<450) H 10/06/21 15:45 Serum Total Protein 8.3 g/dL (6.4-8.2) H 10/06/21 15:45 Albumin 3.3 g/dL (3.4-5.0) L 10/06/21 15:45 Globulin 5.0 g/dL (2.3-3.5) H 10/06/21 15:45 Albumin/Globulin Ratio 0.7 (1.1-1.8) L 10/06/21 15:45 Urine pH 6.0 (5.0-7.0) 10/06/21 16:09 Ur Specific [place] 1.015 (1.005-1.030) 10/06/21 16:09 Glucose (UA)(Auto) Negative (Negative) 10/06/21 16:09 Urine Ketones 1+ (Negative) H 10/06/21 16:09 Urine Blood Trace-intact (Negative) H 10/06/21 16:09 Urine Nitrite Negative (Negative) 10/06/21 16:09 Ur Leukocyte Esterase 1+ (Negative) H 10/06/21 16:09 Urine RBC <5 /HPF (NONE SEEN) 10/06/21 16:10 Urine WBC 10-20 /HPF (<5) H 10/06/21 16:10 Ur Squamous Epith Cells 5-10 /HPF (NONE SEEN) H 10/06/21 16:10 Amorphous Sediment 4+ /HPF (NONE SEEN) H 10/06/21 16:10 Urine Bacteria 20-50 /HPF (<20) H 10/06/21 16:10 Urine Culture Reflexed Not needed 10/06/21 16:10 Urine Total Protein 1+ (Negative) H 10/06/21 16:09 SARS-CoV-2 Rap RNA(RT-PCR) Negative (NEGATIVE) 10/06/21 15:11 Medications List Reviewed: Yes Assessment And Plan - Plan Physical Exam: General: Mild distress (Very tearful during patient interview. Very concerned about her health.), Confused HEENT: Atraumatic, Normocephalic Neck: Supple Respiratory: Clear to auscultation bilaterally, Normal air movement Cardiovascular: Normal pulses, Normal S1 S2 Gastrointestinal: Normal bowel sounds, Non-distended Musculoskeletal: No clubbing, No swelling, No contractures, No erythema, No tenderness Integumentary: No rashes, No breakdown, No significant lesion, No tenderness/swelling Assessment/plan Leukocytosis of unknown origin WBC down trending 29.1>22.9. Patient remains afebrile. Possible sources include: C diff: patient noted to have diarrhea for the past few days, C diff test pending. leukocytosis secondary to underlying lung cancer: Patient has a history of squamous cell carcinoma, repeat CT imaging showed enlarging right upper lung mass. Obstructive pneumonia secondary to squamous cell carcinoma/COPD Hold off on starting empiric antibiotics until C diff results are back. If C diff negative, recommend starting cefepime and Flagyl. Urine culture shows no growth, blood cultures obtained on 10/17 show no growth at 24 hr. Procal mildly elevated at 0.19. And cancer CKD stage 3 Protein caloric malnutrition Diabetes Anemia -medical management per primary team -continue to monitor CBC and BMP -continue to monitor for signs of infection Plan of care discussed with Dr. Hyde Thank you for consultation. Physician Review Additional Text: COVID: Negative CT Chest 07/2021: COMPARISON: Thorax Wo Con dated 01/20/2020 TECHNIQUE: Approximately 100 mL nonionic IV contrast was administered to the patient. All CT scans are performed using dose optimization technique as appropriate and may include automated exposure control or mA/KV adjustment according to patient size. FINDINGS: 8.1 cm mass along the right upper lung. There is a second pleural based mass with central low attenuation in the right lower lung measuring 2.7 cm. Emphysema is present.Coronary artery calcifications. Cardiomegaly. St ernotomy. Possible low-density lesion in the right hepatic lobe. Cholelithiasis. 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 Atherosclerosis. No renal ureteral calculi identified. No bowel obstruction. Bladder is unremarkable. Hysterectomy No bowel obstruction, free air, free fluid or abscess. No worrisome osseous finding. Sternotomy. Multilevel degenerative changes are present in the spine. IMPRESSION: Two masses in the right lung, the larger measuring over 8 cm . This is suspicious for neoplasm. There is a more indeterminate right lower lobe process with a broader differential. Could consider PET-CT or percutaneous biopsy for further evaluation. CXR: COMPARISON: CT chest August 03, portable chest August 03 TECHNIQUE: AP portable chest image was obtained 10/06/2021 3:14 pm . FINDINGS: Chronic interstitial lung disease is present in both lung martinez. Focally more prominent lung parenchymal opacification in the right base believed to be part of the posterior right base mass detailed on the August 03 CT chest study. A larger 8 centimeter mass in the lateral upper right lung field again noted. These masses are not clearly different from prior imaging. No significant failure or volume overload. Sternotomy wires are in place. Heart and vasculature are normal. No measurable pleural effusion and no pneumothorax. No acute bony abnormality seen. No acute aortic findings suspected. IMPRESSION: Two right-side chest masses are present superimposed on chronic fibrotic lung change. No acute chest finding seen. No significant change from the July imaging. 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 TECHNIQUE: Real-time sonographic evaluation of the left upper extremity deep venous systems was performed. FINDINGS: Normal compressibility, flow augmentation, phasic flow and spontaneous flow are identified in the left upper extremity deep venous system. No intraluminal filling defects seen. Internal jugular and subclavian veins are normal as well. Superficial cephalic vein was not well visualized. IMPRESSION: No DVT in the left upper extremity. Follow up CXR 10/17/2021: COMPARISON: October 10, 2021 FINDINGS: Overall no significant change in the right lung masses. A lung consolidation is not seen. Heart remains enlarged. Postsurgical changes involve the chest CT Chest: Physical exam: General: Alert, Oriented x1, patient with dementia. Patient appears overall stable. HEENT: Atraumatic, Normocephalic Neck: Supple Respiratory: Clear to auscultation bilaterally, Normal air movement, patient on room air Cardiovascular: Normal sinus rhythm trolled Capillary refill: <2 Seconds Gastrointestinal: Normal bowel sounds Integumentary: No significant lesion, No tenderness/swelling, No erythema Neurological: Normal speech, Normal tone Impression: Hypertensive urgency with underlying primary hypertension Hypercalcemia with abnormal CT scan in the past showing 2 masses in the right lung status post lung biopsy with pathology showing squamous cell carcinoma COPD with history of tobacco use Elevated troponin likely ischemic demand with history of CAD/CABG Medical debility/generalized weakness after fall Atrial fibrillation not on chronic anticoagulation therapy Diabetes mellitus type 2 Hyperlipidemia CKD 3 with hypernatremia and hypercalcemia Leukocytosis etiology unknown likely related to underlying cancer Dementia Plan: Hypertensive urgency with underlying primary hypertension: Blood pressure stable. Currently on lisinopril 20 mg 1 pill twice daily. Patient with hypernatremia and hypercalcemia. This is likely related to her poor oral intake and lung cancer. Case discussed in detail with pulmonology. Pulmonology will provide pamidronate x1. Continue D5W. Await further recommendations from nephrology. CT chest obtained to evaluate leukocytosis. Pulmonology suspects leukocytosis likely related to lung cancer. White count improved. Will discuss case with daughter concerning plan of care. Daughter had wanted to continue with skilled placement. With her condition need to consider hospice. Await decision with family. Continue current management at this time. I will turn to service over to the hospitalist team tomorrow. I will plan to care with him. Episode of second/third degree block: No intervention required. Cardiology recommends further evaluation as an outpatient. Hypercalcemia with abnormal CT scan in the past showing 2 masses in the right lung status post lung biopsy with pathology showing squamous cell carcinoma: Biopsy shows squamous cell carcinoma. Oncology recommends outpatient evaluation for possible chemotherapy but due to her current status patient may not be a candidate. If her condition continues to decline oncology recommended hospice. Care discussed in detail with daughter the other day. Daughter plans to see how she does with skilled placement. If she does well then patient may be able to go and see oncology as an outpatient for recommendations. If she declines further she would consider hospice. Will readdress with family again today. COPD with history of tobacco use: Continue Brovana and COPD medication. Patient will require medication at discharge. Elevated troponin likely ischemic demand with history of CAD/CABG: Case discussed with cardiology. No intervention recommended by cardiology at this time.. Continue aspirin, Lipitor, folic acid and blood pressure medication. Medical debility/generalized weakness after fall: Continue physical therapy and Occupational Therapy. Family wants patient to go to skilled placement. Await approval. Atrial fibrillation not on chronic anticoagulation therapy: Patient currently in sinus rhythm. Cardiology recommends to discontinue metoprolol due to EKG changes. Will monitor closely. Cardiology recommends no chronic anticoagulation therapy. Patient not on chronic anticoagulation therapy due to risk of fall, bleeding and age. Diabetes mellitus type 2: Continue Accu-Cheks and sliding scale. Will monitor dress appropriately. Will review home medication. Hyperlipidemia: Continue Lipitor 20 mg daily CKD 3 with hypernatremia and hypercalcemia: Pamidronate given. Continue D5W. Recheck lab later today. Await recommendations from nephrology. Leukocytosis etiology unknown likely related to underlying cancer: Patient is not septic. White count improved. Case discussed at length with pulmonology. Pulmonology suspects this may be related to her underlying lung cancer. CT scan chest obtained. Case also discussed with infectious disease. No antibiotic therapy at this time required. Diarrhea improved. Continue to discuss with pulmonology and infectious disease. Dementia: Continue with Namenda DVT PPX: Lovenox Code status: Spoke to Daughter Judit the other day. Phone number [phone]. Patient remains Full code Discharge Plan: Continue with plan for skilled placement. Will rediscuss with family about plan of care.
--- NOTE | 2021-10-19 12:48 | P.PN ---
Subjective Date of Service: 10/19/21 Primary Care Provider: Benja [facility] Chief Complaint: RUL lung mass No change in patient's condition she continues to remain confused nonverbal not eating and drinking Review of Systems is unable to be obtained Physical Examination - Vital Signs Temperature: 97.3 F Blood Pressure: 147/58 Pulse: 73 Respirations: 18 Pulse Ox (%): 98 - Physical Exam General: Alert Neck: Supple Respiratory: Clear to auscultation bilaterally Cardiovascular: No edema, Normal S1 S2 - Studies Medications List Reviewed: Yes Assessment & Plan - Problems (Diagnosis) (1) Lung cancer Current Visit: Yes Status: Acute Plan: Patient has squamous cell cancer of the right upper lobe with hypercalcemia patient's prognosis is very poor she has underlying dementia not eating and drinking in addition to hyponatremia patient is not a candidate for surgical or chemo therapy for now recommend discharge her with hospice care I given her 1 dose of pamidronate given some IV fluids white count is elevated doubt sepsis most likely an inflammatory reaction to the tumor cultures are all negative Qualifiers: Laterality: right
[2021-10-19] MEDS: ENOXAPARIN 30 MG/0.3 ML SQ SCH (17:46)
[2021-10-19] MEDS: ACETAMINOPHEN 500 MG TAB PO PRN (20:22)
[2021-10-19] MEDS: ATORVASTATIN 20 MG TAB PO SCH (20:22)
[2021-10-20] MEDS: D5W 1,000 ML IV SCH ×4 (01:36→17:22)
[2021-10-20 06:16] LABS: Absolute Lymphocytes (CBC) 0.7 K/uL (0.7-4.9); Basophils % 0.1 % (0-1.3); Hematocrit 34.3 % (36.0-45.0); Lymphocytes % 4.7 % (15.3-44.8); MPV 10.6 fL (7.6-11.3); RBC Red Blood Cell Count 3.39 M/uL (3.86-4.86)
[2021-10-20 06:35] LABS: Albumin 1.9 g/dL (3.4-5.0); Magnesium 2.1 mg/dL (1.8-2.4); Phosphorus 1.8 mg/dL (2.5-4.9); Potassium 3.2 mmol/L (3.5-5.1)
--- NOTE | 2021-10-20 06:40 | P.PN ---
Subjective Date of Service: 10/20/21 Primary Care Provider: [place] [facility] Chief Complaint: RUL lung mass Subjective: No new changes Physical Examination - Vital Signs Temperature: 97.4 F Blood Pressure: 118/60 Pulse: 76 Respirations: 18 Pulse Ox (%): 97 - Physical Exam General: Other (Frail-looking) HEENT: Atraumatic, Normocephalic Neck: Supple, JVD not distended Respiratory: Diminished Cardiovascular: No rubs, No murmurs Gastrointestinal: Soft and benign, Non-distended Musculoskeletal: No clubbing Integumentary: No warmth Neurological: Normal tone Lymphatics: No axilla or inguinal lymphadenopathy Urinary: Other (No bladder distention) External genitalia: Deferred Rectal: Deferred - Studies Medications List Reviewed: Yes Assessment And Plan - Plan # Hypercalcemia, non-PTH mediated, likely 2/2 lung SqCC Corrected serum Ca improved/decreased to 11.4 iPTH appropriately in the low normal range 25OHD 29.8, not elevated F/u 1/25 OH2D, PTH-rP +Serum protein gap; 1+ proteinuria--> f/u random UPCR to assess for urine protein gap; f/u SPEP, CATHRYN, K:L SFLC to rule out plasma cell dyscrasia Pamidronate IV received on 10/19; redose after 7d if needed Cont IV fluids Hold giving Calcitonin as this med is super expensive # Hypernatremia 2/2 dec po free water intake Corrected serum Na improved/decreased to 146 Wt 54 kg Total body water 24.3L Free water deficit 2.1L plus ongoing losses (insensibles 0.5L/d + urine water loss 1.5L/d) BNP elevated at 759, trop elevated Continue D5W gtt at 75 cc/hr Switched to puree diet on 10/20 per pt daughter's request # AVRIL 2/2 prerenal state, improving; on CKD3 Baseline SCr 0.9-1.0 SCr worsened to 1.5 but now improved to 1.1-1.2 IV hydration as above # HypoPO4 Phos repletion today # HypoK K IV repletion today # Lung SqCC Hx of cig smoking, quit 15 yrs ago; hx of COPD Chest CT showed larger malignant mass in the posterior lateral upper right chest wall larger than in July 2021 w/ chest wall invasion w/ bony destruction of the third and fourth ribs Pamidronate received on 10/19 Per other services # Accelerated Htn; hx of CAD s/p CABG; afib not on anticoagulation therapy BP now better controlled Cont cardioprudent meds # Second/third degree block Further eval as outpt per Cardiology recs Metoprolol d/c'ed # DM2 Mngt per primary team # Dementia On Namenda # Debility, recent fall PT/OT # Dispo DNR Transition to hospice upon hosp dc
[2021-10-20] MEDS: POTASS/SODIUM PHOSPHATE 1 PKT POWD.PACK PO SCH ×2 (07:00→11:00)
[2021-10-20] MEDS: INSULIN -REGULAR HUMAN 50 UNIT/0.5 ML ML SQ SCH ×4 (07:30→21:22)
[2021-10-20] MEDS: ARFORMOTEROL TARTRATE 15 MCG/2 ML VIAL.NEB NEB SCH ×2 (08:50→20:05)
[2021-10-20] MEDS: GLUCERNA SHAKE 237 ML CAN PO SCH ×2 (09:00→21:00)
[2021-10-20] MEDS: ASPIRIN EC 81 MG TAB PO SCH (10:08)
[2021-10-20] MEDS: MEMANTINE HCL 10 MG TABLET PO SCH (10:08)
[2021-10-20] MEDS: lisinopriL 20 MG TAB PO SCH ×2 (10:08→21:20)
[2021-10-20] MEDS: KCL 20 MEQ/100 mL IVPB 20 MEQ/100 ML BAG IV SCH ×2 (10:09→12:00)
[2021-10-20] MEDS ORDERED: POTASSIUM PHOS IN 0.9 % NACL 15 MMOL/250 ML BAG IV ONE (14:00)
--- NOTE | 2021-10-20 14:28 | P.PN ---
Subjective Date of Service: 10/20/21 Primary Care Provider: [facility] Chief Complaint: RUL lung mass pt is sleeping, still confused, no issues over night, hospice placement pending Physical Examination - Vital Signs Temperature: 98.5 F Blood Pressure: 136/60 Pulse: 72 Respirations: 17 Pulse Ox (%): 99 - Studies Medications List Reviewed: Yes Assessment & Plan Physician Review Additional Text: COVID: Negative CT Chest 07/2021: COMPARISON: Thorax Wo Con dated 01/20/2020 TECHNIQUE: Approximately 100 mL nonionic IV contrast was administered to the patient. All CT scans are performed using dose optimization technique as appropriate and may include automated exposure control or mA/KV adjustment according to patient size. FINDINGS: 8.1 cm mass along the right upper lung. There is a second pleural based mass with central low attenuation in the right lower lung measuring 2.7 cm. Emphysema is present.Coronary artery calcifications. Cardiomegaly. Sternotomy. Possible low-density lesion in the right hepatic lobe. Cholelithiasis. 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 Atherosclerosis. No renal ureteral calculi identified. No bowel obstruction. Bladder is unremarkable. Hysterectomy No bowel obstruction, free air, free fluid or abscess. No worrisome osseous finding. Sternotomy. Multilevel degenerative changes are present in the spine. IMPRESSION: Two masses in the right lung, the larger measuring over 8 cm . This is suspicious for neoplasm. There is a more indeterminate right lower lobe process with a broader differential. Could consider PET-CT or percutaneous biopsy for further evaluation. CXR: COMPARISON: CT chest August 03, portable chest August 03 TECHNIQUE: AP portable chest image was obtained 10/06/2021 3:14 pm . FINDINGS: Chronic interstitial lung disease is present in both lung martinez. Focally more prominent lung parenchymal opacification in the right base believed to be part of the posterior right base mass detailed on the August 03 CT chest study. A larger 8 centimeter mass in the lateral upper right lung field again noted. These masses are not clearly different from prior imaging. No significant failure or volume overload. Sternotomy wires are in place. Heart and vasculature are normal. No measurable pleural effusion and no pneumothorax. No acute bony abnormality seen. No acute aortic findings suspected. IMPRESSION: Two right-side chest masses are present superimposed on chronic fibrotic lung change. No acute chest finding seen. No significant change from the July imaging. 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 TECHNIQUE: Real-time sonographic evaluation of the left upper extremity deep venous systems was performed. FINDINGS: Normal compressibility, flow augmentation, phasic flow and spontaneous flow are identified in the left upper extremity deep venous system. No intraluminal filling defects seen. Internal jugular and subclavian veins are normal as well. Superficial cephalic vein was not well visualized. IMPRESSION: No DVT in the left upper extremity. Follow up CXR 10/17/2021: COMPARISON: October 10, 2021 FINDINGS: Overall no significant change in the right lung masses. A lung consolidation is not seen. Heart remains enlarged. Postsurgical changes involve the chest CT Chest: COMPARISON: Chest Abd Pelvis Wo Con dated 08/03/2021; Thorax Wo Con dated 01/20/2020; Lung Biopsy Perc w/CT dated 10/10/2021 TECHNIQUE: Axial 5 mm thick images of the chest were obtained without IV contrast. All CT scans are performed using dose optimization technique as appropriate and may include automated exposure control or mA/KV adjustment according to patient size. FINDINGS: The large lobulated, recently biopsied mass of the posterolateral right chest has enlarged since the August 03 comparison. The mass is 9.1 x 4.5 cm compared to 18.1 x 3.3 centimeter size in July. Furthermore, there is now invasion of the chest wall with bone destructive changes seen in the right fourth and fifth ribs. The pleural abutting mass in the posterior lower right lung field approximately 3 cm has not changed. Trace amount of pleural fluid seen in the right hemithorax. No new or progressive left lung field finding. No pneumothorax. Abnormal mediastinal lymphadenopathy pattern not significantly different from the July study. Full extent is difficult to characterize in the absence of IV contrast. No gross aortic dilatation. Dense aortic calcifications are present. There are also dense coronary artery calcifications. No pericardial effusion. No abnormal axillary lymphadenopathy. No adrenal masses are seen in the upper abdomen. Liver assessment is limited. Low-density mass in the posterior right lobe is again noted. IMPRESSION: The large malignant mass of the posterolateral upper right chest has enlarged since July and is now invading the chest wall with bone destruction in the third and fourth ribs. Approximately 3 centimeter pleural abutting mass in the posterior lower right lung field has not changed. Mediastinal and hilar lymphadenopathy pattern not clearly different. Physical exam: General: Alert, Oriented x1, patient with dementia. Patient appears overall stable. HEENT: Atraumatic, Normocephalic Neck: Supple Respiratory: Clear to auscultation bilaterally, Normal air movement, patient on room air Cardiovascular: Normal sinus rhythm trolled Capillary refill: <2 Seconds Gastrointestinal: Normal bowel sounds Integumentary: No significant lesion, No tenderness/swelling, No erythema Neurological: Normal speech, Normal tone Impression: Hypertensive urgency with underlying primary hypertension Hypercalcemia with abnormal CT scan large malignant mass of the posterior lateral upper right chest enlarged since July now invading the chest wall with bony destruction to the third and fourth ribs status post lung biopsy with pathology showing squamous cell carcinoma COPD with history of tobacco use Elevated troponin likely ischemic demand with history of CAD/CABG Medical debility/generalized weakness after fall Atrial fibrillation not on chronic anticoagulation therapy Diabetes mellitus type 2 Hyperlipidemia CKD 3 with hypernatremia and hypercalcemia Leukocytosis etiology unknown likely related to underlying cancer Dementia Plan: Hypertensive urgency with underlying primary hypertension: Blood pressure stable. Currently on lisinopril 20 mg 1 pill twice daily. Patient with hypernatremia and hypercalcemia. This is likely related to her poor oral intake and lung cancer. Dr Eastman discussed case in detail with pulmonology. Pulmonology provided pamidronate x1 perviously . Continue D5W. CT scan shows larger malignant mass in the posterior lateral upper right chest wall. Larger since July. Now invading chest wall with bony destruction to the third and fourth ribs. Patient prognosis poor. After discussion with pulmonology and nephrology hospice is the best option for patient. gabe agrees hospice placment in progress Episode of second/third degree block: No intervention required. Cardiology recommends further evaluation as an outpatient.but pt going on hospice Hypercalcemia with abnormal CT scan large malignant mass of the posterior lateral upper right chest enlarged since July now invading the chest wall with bony destruction to the third and fourth ribs status post lung biopsy with pathology showing squamous cell carcinoma: Biopsy shows squamous cell carcinoma. Family to decide on hospice COPD with history of tobacco use: Continue Brovana and COPD medication. Patient will require medication at discharge. Elevated troponin likely ischemic demand with history of CAD/CABG: Case discussed with cardiology. No intervention recommended by cardiology at this time.. Continue aspirin, Lipitor, folic acid and blood pressure medication. pt going on hospice Medical debility/generalized weakness after fall: Continue physical therapy and Occupational Therapy. Family wants patient to go to skilled placement. Await approval. Atrial fibrillation not on chronic anticoagulation therapy: Patient currently in sinus rhythm. Cardiology recommends to discontinue metoprolol due to EKG changes. Will monitor closely. Cardiology recommends no chronic anticoagulation therapy. Patient not on chronic anticoagulation therapy due to risk of fall, bleeding and age. Diabetes mellitus type 2: Continue Accu-Cheks and sliding scale. till pt DC on hospice Hyperlipidemia: Continue Lipitor 20 mg daily Hypokalemia -replace CKD 3 with hypernatremia and hypercalcemia: Pamidronate given. Continue D5W. calcium today 9.7 Leukocytosis etiology unknown likely related to underlying cancer: better today down to 16 k, Patient is not septic. White count improved. Case discussed at length with pulmonology. Pulmonology suspects this may be related to her underlying lung cancer. CT scan chest obtained. Case also discussed with infectious disease. No antibiotic therapy at this time required. pt is going on hospice, no further intervention needed Dementia: Continue with Namenda DVT PPX: Lovenox Code status: Spoke to Daughter Judit the other day. Phone number [phone]. Patient remains Full code but considering DO NOT RESUSCITATE and possible hospice. Discharge Plan: Case discussed in detail with the daughter. Daughter to reach out to other family members to make a final decision on possibly hospice.
[2021-10-20] MEDS: ENOXAPARIN 30 MG/0.3 ML SQ SCH (17:21)
[2021-10-20] MEDS: ONDANSETRON 4 MG/2 ML VIAL IV PRN (18:33)
[2021-10-20] MEDS: ATORVASTATIN 20 MG TAB PO SCH (21:00)
[2021-10-20] MEDS: ACETAMINOPHEN 500 MG TAB PO PRN (21:21)
--- NOTE | 2021-10-21 06:02 | P.PN ---
Subjective Date of Service: 10/21/21 Primary Care Provider: Benja osborne Chief Complaint: RUL lung mass Subjective: No new changes Physical Examination - Vital Signs Temperature: 97.5 F Blood Pressure: 141/57 Pulse: 83 Respirations: 18 Pulse Ox (%): 94 - Physical Exam General: Other (Frail-looking) HEENT: Atraumatic, Normocephalic Neck: Supple, JVD not distended Respiratory: Diminished Cardiovascular: No rubs, No murmurs Gastrointestinal: Soft and benign Musculoskeletal: No clubbing Integumentary: No warmth Neurological: Dementia Lymphatics: No axilla or inguinal lymphadenopathy Urinary: Other (No bladder distention) External genitalia: Deferred Rectal: Deferred - Studies Medications List Reviewed: Yes Assessment And Plan - Plan # Hypercalcemia, non-PTH mediated, likely 2/2 lung SqCC Corrected serum Ca improved/decreased to 11.3 today iPTH appropriately in the low normal range 25OHD 29.8, not elevated F/u 1/25 OH2D, PTH-rP +Serum protein gap; 1+ proteinuria--> f/u random UPCR to assess for urine protein gap; f/u SPEP, CATHRYN, K:L SFLC to rule out plasma cell dyscrasia Pamidronate IV received on 10/19; redose after 7d if needed Cont IV fluids Hold giving Calcitonin as this med is super expensive # Hypernatremia 2/2 dec po free water intake Resolved; corrected serum Na improved/decreased to 136 Wt 54 kg Total body water 24.3L BNP elevated at 759, trop elevated Dc D5W gtt. Start D5LR 75 cc/hr ON puree diet # AVRIL 2/2 prerenal state, improving; on CKD3 Baseline SCr 0.9-1.0 SCr worsened to 1.5 but now improved to 1.1 IV hydration as above # HypoPO4 Phos IV repletion today # Acidosis Mild, monitor # Lung SqCC Hx of cig smoking, quit 15 yrs ago; hx of COPD Chest CT showed larger malignant mass in the posterior lateral upper right chest wall larger than in July 2021 w/ chest wall invasion w/ bony destruction of the third and fourth ribs Pamidronate received on 10/19 Per other services # Accelerated Htn; hx of CAD s/p CABG; afib not on anticoagulation therapy BP now better controlled Cont cardioprudent meds # Second/third degree block Further eval as outpt per Cardiology recs Metoprolol d/c'ed # DM2 Mngt per primary team # Dementia On Namenda # Debility, recent fall PT/OT # Dispo DNR Transition to hospice upon hosp dc
[2021-10-21] MEDS: D5W 1,000 ML IV SCH (06:03)
[2021-10-21 06:40] LABS: Albumin 1.8 g/dL (3.4-5.0); Magnesium 1.9 mg/dL (1.8-2.4); Phosphorus 2.1 mg/dL (2.5-4.9); Potassium 3.8 mmol/L (3.5-5.1)
[2021-10-21] MEDS: ARFORMOTEROL TARTRATE 15 MCG/2 ML VIAL.NEB NEB SCH ×2 (07:40→20:00)
[2021-10-21] MEDS ORDERED: KCL 20 MEQ/100 mL IVPB 20 MEQ/100 ML BAG IV SCH (09:00)
[2021-10-21] MEDS: GLUCERNA SHAKE 237 ML CAN PO SCH ×2 (09:00→21:00)
[2021-10-21] MEDS: INSULIN -REGULAR HUMAN 50 UNIT/0.5 ML ML SQ SCH ×4 (09:55→21:00)
[2021-10-21] MEDS: ASPIRIN EC 81 MG TAB PO SCH (09:56)
[2021-10-21] MEDS: lisinopriL 20 MG TAB PO SCH ×2 (09:56→21:18)
[2021-10-21] MEDS: MEMANTINE HCL 10 MG TABLET PO SCH (09:56)
[2021-10-21 10:22] VITALS: O2SAT 97
--- NOTE | 2021-10-21 11:44 | P.PN ---
Subjective Date of Service: 10/21/21 Primary Care Provider: [facility] Chief Complaint: RUL lung mass pt is sleeping, very hard to arouse no issues over night, hospice placement pending Physical Examination - Vital Signs Temperature: 97.7 F Blood Pressure: 122/52 Pulse: 87 Respirations: 16 Pulse Ox (%): 97 - Studies Medications List Reviewed: Yes Assessment & Plan Physician Review Additional Text: .CT Chest 07/2021: COMPARISON: Thorax Wo Con dated 01/20/2020 TECHNIQUE: Approximately 100 mL nonionic IV contrast was administered to the patient. All CT scans are performed using dose optimization technique as appropriate and may include automated exposure control or mA/KV adjustment according to patient size. FINDINGS: 8.1 cm mass along the right upper lung. There is a second pleural based mass with central low attenuation in the right lower lung measuring 2.7 cm. Emphysema is present.Coronary artery calcifications. Cardiomegaly. Sternotomy. Possible low-density lesion in the right hepatic lobe. Cholelithiasis. 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 Atherosclerosis. No renal ureteral calculi identified. No bowel obstruction. Bladder is unremarkable. Hysterectomy No bowel obstruction, free air, free fluid or abscess. No worrisome osseous finding. Sternotomy. Multilevel degenerative changes are present in the spine. IMPRESSION: Two masses in the right lung, the larger measuring over 8 cm . This is suspicious for neoplasm. There is a more indeterminate right lower lobe process with a broader differential. Could consider PET-CT or percutaneous biopsy for further evaluation. CXR: COMPARISON: CT chest August 03, portable chest August 03 TECHNIQUE: AP portable chest image was obtained 10/06/2021 3:14 pm . FINDINGS: Chronic interstitial lung disease is present in both lung martinez. Focally more prominent lung parenchymal opacification in the right base believed to be part of the posterior right base mass detailed on the August 03 CT chest study. A larger 8 centimeter mass in the lateral upper right lung field again noted. These masses are not clearly different from prior imaging. No significant failure or volume overload. Sternotomy wires are in place. Heart and vasculature are normal. No measurable pleural effusion and no pneumothorax. No acute bony abnormality seen. No acute aortic findings suspected. IMPRESSION: Two right-side chest masses are present superimposed on chronic fibrotic lung change. No acute chest finding seen. No significant change from the July imaging. 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 TECHNIQUE: Real-time sonographic evaluation of the left upper extremity deep venous systems was performed. FINDINGS: Normal compressibility, flow augmentation, phasic flow and spontaneous flow are identified in the left upper extremity deep venous system. No intraluminal filling defects seen. Internal jugular and subclavian veins are normal as well. Superficial cephalic vein was not well visualized. IMPRESSION: No DVT in the left upper extremity. Follow up CXR 10/17/2021: COMPARISON: October 10, 2021 FINDINGS: Overall no significant change in the right lung masses. A lung consolidation is not seen. Heart remains enlarged. Postsurgical changes involve the chest CT Chest: COMPARISON: Chest Abd Pelvis Wo Con dated 08/03/2021; Thorax Wo Con dated 12/28; Lung Biopsy Perc w/CT dated 10/10/2021 TECHNIQUE: Axial 5 mm thick images of the chest were obtained without IV contrast. All CT scans are performed using dose optimization technique as appropriate and may include automated exposure control or mA/KV adjustment according to patient size. FINDINGS: The large lobulated, recently biopsied mass of the posterolateral right chest has enlarged since the August 03 comparison. The mass is 9.1 x 4.5 cm compared to 18.1 x 3.3 centimeter size in July. Furthermore, there is now invasion of the chest wall with bone destructive changes seen in the right fourth and fifth ribs. The pleural abutting mass in the posterior lower right lung field approximately 3 cm has not changed. Trace amount of pleural fluid seen in the right hemithorax. No new or progressive left lung field finding. No pneumothorax. Abnormal mediastinal lymphadenopathy pattern not significantly different from the July study. Full extent is difficult to characterize in the absence of IV contrast. No gross aortic dilatation. Dense aortic calcifications are present. There are also dense coronary artery calcifications. No pericardial effusion. No abnormal axillary lymphadenopathy. No adrenal masses are seen in the upper abdomen. Liver assessment is limited. Low-density mass in the posterior right lobe is again noted. IMPRESSION: The large malignant mass of the posterolateral upper right chest has enlarged since July and is now invading the chest wall with bone destruction in the third and fourth ribs. Approximately 3 centimeter pleural abutting mass in the posterior lower right lung field has not changed. Mediastinal and hilar lymphadenopathy pattern not clearly different. Physical exam: General: Alert, Oriented x1, patient with dementia. Patient appears overall stable. HEENT: Atraumatic, Normocephalic Neck: Supple Respiratory: Clear to auscultation bilaterally, Normal air movement, patient on room air Cardiovascular: Normal sinus rhythm trolled Capillary refill: <2 Seconds Gastrointestinal: Normal bowel sounds Integumentary: No significant lesion, No tenderness/swelling, No erythema Neurological: Normal speech, Normal tone Impression: Hypertensive urgency with underlying primary hypertension Hypercalcemia with abnormal CT scan large malignant mass of the posterior latera l upper right chest enlarged since July now invading the chest wall with bony destruction to the third and fourth ribs status post lung biopsy with pathology showing squamous cell carcinoma COPD with history of tobacco use Elevated troponin likely ischemic demand with history of CAD/CABG Medical debility/generalized weakness after fall Atrial fibrillation not on chronic anticoagulation therapy Diabetes mellitus type 2 Hyperlipidemia CKD 3 with hypernatremia and hypercalcemia Leukocytosis etiology unknown likely related to underlying cancer Dementia Plan: Hypertensive urgency with underlying primary hypertension: Blood pressure stable. Currently on lisinopril 20 mg 1 pill twice daily. Patient with hypernatremia and hypercalcemia. This is likely related to her poor oral intake and lung cancer. Dr Eastman discussed case in detail with pulmonology. Pulmonology provided pamidronate x1 perviously . Continue D5W. CT scan shows larger malignant mass in the posterior lateral upper right chest wall. Larger since July. Now invading chest wall with bony destruction to the third and fourth ribs. Patient prognosis poor. After discussion with pulmonology and nephrology hospice is the best option for patient. daughter agrees hospice placment in progress Episode of second/third degree block: No intervention required. Cardiology recommends further evaluation as an outpatient.but pt going on hospice Hypercalcemia with abnormal CT scan large malignant mass of the posterior lateral upper right chest enlarged since July now invading the chest wall with bony destruction to the third and fourth ribs status post lung biopsy with pathology showing squamous cell carcinoma: Biopsy shows squamous cell carcinoma. Family to decide on hospice COPD with history of tobacco use: Continue Brovana and COPD medication. Patient will require medication at [facility]. Elevated troponin likely ischemic demand with history of CAD/CABG: Case discussed with cardiology. No intervention recommended by cardiology at this time.. Continue aspirin, Lipitor, folic acid and blood pressure medication. pt going on hospice Medical debility/generalized weakness after fall: Continue physical therapy and Occupational Therapy. Family wants patient to go to skilled placement. Await approval. Atrial fibrillation not on chronic anticoagulation therapy: Patient currently in sinus rhythm. Cardiology recommends to discontinue metoprolol due to EKG changes. Will monitor closely. Cardiology recommends no chronic anticoagulation therapy. Patient not on chronic anticoagulation therapy due to risk of fall, bleeding and age. Diabetes mellitus type 2: Continue Accu-Cheks and sliding scale. till pt DC on hospice Hyperlipidemia: Continue Lipitor 20 mg daily Hypokalemia -replace CKD 3 with hypernatremia and hypercalcemia: Pamidronate given on 10/19 Continue D5W. calcium today 9.6 today Leukocytosis etiology unknown likely related to underlying cancer: no CBC today and will not order , since pt going on hospice, , Patient is not septic. White count improved. Case discussed at length with pulmonology. Pulmonology suspects this may be related to her underlying lung cancer. CT scan chest obtained. Case also discussed with infectious disease. No antibiotic therapy at this time required. pt is going on hospice, no further intervention needed Dementia: Continue with Namenda DVT PPX: Lovenox Code status: Spoke to Daughter Judit the other day. Phone number [phone]. Patient remains Full code but considering DO NOT RESUSCITATE and possible hospice. Discharge Plan: hospice with nurse home pending insurance approval most likely will be sunday .
--- NOTE | 2021-10-21 11:56 | PN ---
Subjective: The patient lying in bed. No new acute event overnight. As per staff, the patient is s omewhat confused. Most of the history was obtained through medical records and staff. Objective: Vital Signs: Temperature 97.7, pulse 87, respirations 16, blood pressure 122/52. Lungs: Basal crackles. Heart: S1 and S2. Regular. Abdomen: Soft, nontender. Bowel sounds present. Extremities: No edema. Laboratory Data: Shows WBC 14.7, hemoglobin 10.7, platelets 200. Chemistry shows sodium 133, potass ium 3.8, chloride 102, bicarb 20, BUN 27, creatinine 1.1, glucose 289. Micro data, blood cultures ne gative from 10/17/2021. Chest CT done on 10/19/2021 shows the patient has large malignant mass at the posterolateral upper ri ght chest has enlarged since July and is now invading the chest wall with bone destruction in th e third and fourth ribs, approximately 3 cm pleural abutting mass in the posterior lower right lung f ield, has not changed. Mediastinal and hilar lymphadenopathy pattern not clearly differentiated. Assessment And Plan: An 81-year-old female with altered mental status and chest CT showing large mal ignant tumor, most likely possible cause of leukocytosis, possible obstructive or obstructive pneumon itis. Consider comfort care. Consider getting a CT head to rule out metastasis to head. We will fo llow the patient closely. Thank you for consult. LUCÍA/RENE Voice ID: [id number] Report ID: [id number]
[2021-10-21] MEDS ORDERED: D5LR 1,000 ML IV SCH (15:00)
[2021-10-21] MEDS ORDERED: POTASSIUM PHOS IN 0.9 % NACL 15 MMOL/250 ML BAG IV ONE (15:00)
[2021-10-21] MEDS: ENOXAPARIN 30 MG/0.3 ML SQ SCH (17:11)
[2021-10-21] MEDS: ACETAMINOPHEN 500 MG TAB PO PRN (21:18)
[2021-10-21] MEDS: ATORVASTATIN 20 MG TAB PO SCH (21:18)
[2021-10-22 05:07] LABS: KAPPA LIGHT CHAIN, FREE SERUM 46.6 mg/L (3.3-19.4)
[2021-10-22 05:35] VITALS: BP 109/50; TEMP 97.6
--- NOTE | 2021-10-22 06:14 | P.PN ---
Subjective Date of Service: 10/22/21 Primary Care Provider: Benja osborne Chief Complaint: RUL lung mass Physical Examination - Vital Signs Temperature: 97.6 F Blood Pressure: 109/50 Pulse: 76 Respirations: 16 Pulse Ox (%): 98 - Studies Medications List Reviewed: Yes Assessment And Plan - Plan # Hypercalcemia, non-PTH mediated, likely 2/2 lung SqCC Corrected serum Ca improved/decreased to 11.3 today iPTH appropriately in the low normal range 25OHD 29.8, not elevated F/u 1/25 OH2D, PTH-rP +Serum protein gap; 1+ proteinuria--> f/u random UPCR to assess for urine protein gap; f/u SPEP, CATHRYN, K:L SFLC to rule out plasma cell dyscrasia Pamidronate IV received on 10/19; redose after 7d if needed Cont IV fluids Hold giving Calcitonin as this med is super expensive # Hypernatremia 2/2 dec po free water intake Resolved; corrected serum Na improved/decreased to 136 Wt 54 kg Total body water 24.3L BNP elevated at 759, trop elevated Dc D5W gtt. Start D5LR 75 cc/hr ON puree diet # AVRIL 2/2 prerenal state, improving; on CKD3 Baseline SCr 0.9-1.0 SCr worsened to 1.5 but now improved to 1.1 IV hydration as above # HypoPO4 Phos IV repletion today # Acidosis Mild, monitor # Lung SqCC Hx of cig smoking, quit 15 yrs ago; hx of COPD Chest CT showed larger malignant mass in the posterior lateral upper right chest wall larger than in July 2021 w/ chest wall invasion w/ bony destruction of the third and fourth ribs Pamidronate received on 10/19 Per other services # Accelerated Htn; hx of CAD s/p CABG; afib not on anticoagulation therapy BP now better controlled Cont cardioprudent meds # Second/third degree block Further eval as outpt per Cardiology recs Metoprolol d/c'ed # DM2 Mngt per primary team # Dementia On Namenda # Debility, recent fall PT/OT # Dispo DNR Transition to hospice upon hosp dc Physician Review Additional Text: .CT Chest 07/2021: COMPARISON: Thorax Wo Con dated 01/20/2020 TECHNIQUE: Approximately 100 mL nonionic IV contrast was administered to the patient. All CT scans are performed using dose optimization technique as appropriate and may include automated exposure control or mA/KV adjustment according to patient size. FINDINGS: 8.1 cm mass along the right upper lung. There is a second pleural based mass with central low attenuation in the right lower lung measuring 2.7 cm. Emphysema is present.Coronary artery calcifications. Cardiomegaly. Sternotomy. Possible low-density lesion in the right hepatic lobe. Cholelithiasis. 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 Atherosclerosis. No renal ureteral calculi identified. No bowel obstruction. Bladder is unremarkable. Hysterectomy No bowel obstruction, free air, free fluid or abscess. No worrisome osseous finding. Sternotomy. Multilevel degenerative changes are p resent in the spine. IMPRESSION: Two masses in the right lung, the larger measuring over 8 cm . This is suspicious for neoplasm. There is a more indeterminate right lower lobe process with a broader differential. Could consider PET-CT or percutaneous biopsy for further evaluation. CXR: COMPARISON: CT chest August 03, portable chest August 03 TECHNIQUE: AP portable chest image was obtained 10/06/2021 3:14 pm . FINDINGS: Chronic interstitial lung disease is present in both lung martinez. Focally more prominent lung parenchymal opacification in the right base believed to be part of the posterior right base mass detailed on the August 03 CT chest study. A larger 8 centimeter mass in the lateral upper right lung field again noted. These masses are not clearly different from prior imaging. No significant failure or volume overload. Sternotomy wires are in place. Heart and vasculature are normal. No measurable pleural effusion and no pneumothorax. No acute bony abnormality seen. No acute aortic findings suspected. IMPRESSION: Two right-side chest masses are present superimposed on chronic fibrotic lung change. No acute chest finding seen. No significant change from the July imaging. 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 TECHNIQUE: Real-time sonographic evaluation of the left upper extremity deep venous systems was performed. FINDINGS: Normal compressibility, flow augmentation, phasic flow and spontaneous flow are identified in the left upper extremity deep venous system. No intraluminal filling defects seen. Internal jugular and subclavian veins are normal as well. Superficial cephalic vein was not well visualized. IMPRESSION: No DVT in the left upper extremity. Follow up CXR 10/17/2021: COMPARISON: October 10, 2021 FINDINGS: Overall no significant change in the right lung masses. A lung consolidation is not seen. Heart remains enlarged. Postsurgical changes involve the chest CT Chest: COMPARISON: Chest Abd Pelvis Wo Con dated 08/03/2021; Thorax Wo Con dated 01/20/2020; Lung Biopsy Perc w/CT dated 10/10/2021 TECHNIQUE: Axial 5 mm thick images of the chest were obtained without IV contrast. All CT scans are performed using dose optimization technique as appropriate and may include automated exposure control or mA/KV adjustment according to patient size. FINDINGS: The large lobulated, recently biopsied mass of the posterolateral right chest has enlarged since the August 03 comparison. The mass is 9.1 x 4.5 cm compared to 18.1 x 3.3 centimeter size in July. Furthermore, there is now invasion of the chest wall with bone destructive changes seen in the right fourth and fifth ribs. The pleural abutting mass in the posterior lower right lung field approximately 3 cm has not changed. Trace amount of pleural fluid seen in the right hemithorax. No new or progressive left lung field finding. No pneumothorax. Abnormal mediastinal lymphadenopathy pattern not significantly different from the July study. Full extent is difficult to characterize in the absence of IV contrast. No gross aortic dilatation. Dense aortic calcifications are present. There are also dense coronary artery calcifications. No pericardial effusion. No abnormal axillary lymphadenopathy. No adrenal masses are seen in the upper abdomen. Liver assessment is limited. Low-density mass in the posterior right lobe is again noted. IMPRESSION: The large malignant mass of the posterolateral upper right chest has enlarged since July and is now invading the chest wall with bone destruction in the third and fourth ribs. Approximately 3 centimeter pleural abutting mass in the posterior lower right lung field has not changed. Mediastinal and hilar lymphadenopathy pattern not c learly different. Physical exam: General: Alert, Oriented x1, patient with dementia. Patient appears overall stable. HEENT: Atraumatic, Normocephalic Neck: Supple Respiratory: Clear to auscultation bilaterally, Normal air movement, patient on room air Cardiovascular: Normal sinus rhythm trolled Capillary refill: <2 Seconds Gastrointestinal: Normal bowel sounds Integumentary: No significant lesion, No tenderness/swelling, No erythema Neurological: Normal speech, Normal tone Impression: Hypertensive urgency with underlying primary hypertension Hypercalcemia with abnormal CT scan large malignant mass of the posterior lateral upper right chest enlarged since July now invading the chest wall with bony destruction to the third and fourth ribs status post lung biopsy with pathology showing squamous cell carcinoma COPD with history of tobacco use Elevated troponin likely ischemic demand with history of CAD/CABG Medical debility/generalized weakness after fall Atrial fibrillation not on chronic anticoagulation therapy Diabetes mellitus type 2 Hyperlipidemia CKD 3 with hypernatremia and hypercalcemia Leukocytosis etiology unknown likely related to underlying cancer Dementia Plan: Hypertensive urgency with underlying primary hypertension: Blood pressure stable. Currently on lisinopril 20 mg 1 pill twice daily. Patient with hypernatremia and hypercalcemia. This is likely related to her poor oral intake and lung cancer. Dr Eastman discussed case in detail with pulmonology. Pulmonology provided pamidronate x1 perviously . Continue D5W. CT scan shows larger malignant mass in the posterior lateral upper right chest wall. Larger since July. Now invading chest wall with bony destruction to the third and fourth ribs. Patient prognosis poor. After discussion with pulmonology and nephrology hospice is the best option for patient. daughter agrees hospice placment in progress Episode of second/third degree block: No intervention required. Cardiology recommends further evaluation as an outpatient.but pt going on hospice Hypercalcemia with abnormal CT scan large malignant mass of the posterior lateral upper right chest enlarged since July now invading the chest wall with bony destruction to the third and fourth ribs status post lung biopsy with pathology showing squamous cell carcinoma: Biopsy shows squamous cell carcinoma. Family to decide on hospice COPD with history of tobacco use: Continue Brovana and COPD medication. Patient will require medication at discharge. Elevated troponin likely ischemic demand with history of CAD/CABG: Case discussed with cardiology. No intervention recommended by cardiology at this time.. Continue aspirin, Lipitor, folic acid and blood pressure medication. pt going on hospice Medical debility/generalized weakness after fall: Continue physical therapy and Occupational Therapy. Family wants patient to go to skilled placement. Await approval. Atrial fibrillation not on chronic anticoagulation therapy: Patient currently in sinus rhythm. Cardiology recommends to discontinue metoprolol due to EKG changes. Will monitor closely. Cardiology recommends no chronic anticoagulation therapy. Patient not on chronic anticoagulation therapy due to risk of fall, bleeding and age. Diabetes mellitus type 2: Continue Accu-Cheks and sliding scale. till pt DC on hospice Hyperlipidemia: Continue Lipitor 20 mg daily Hypokalemia -replace CKD 3 with hypernatremia and hypercalcemia: Pamidronate given on 10/19 Continue D5W. calcium today 9.6 today Leukocytosis etiology unknown likely related to underlying cancer: no CBC today and will not order , since pt going on hospice, , Patient is not septic. White count improved. Case discussed at length with pulmonology. Pulmonology suspects this may be related to her underlying lung cancer. CT scan chest obtained. Case also discussed with infectious disease. No antibiotic therapy at this time required. pt is going on hospice, no further intervention needed Dementia: Continue with Namenda DVT PPX: Lovenox Code status: Spoke to Daughter Judit the other day. Phone number [phone]. Patient remains Full code but considering DO NOT RESUSCITATE and possible hospice. Discharge Plan: hospice with nurse home pending insurance approval most likely will be sunday .
[2021-10-22 06:45] LABS: Albumin 1.8 g/dL (3.4-5.0); Magnesium 2.1 mg/dL (1.8-2.4); Potassium 4.4 mmol/L (3.5-5.1)
[2021-10-22 06:50] LABS: Basophils % 0.1 % (0-1.3); Hematocrit 34.6 % (36.0-45.0); Lymphocytes % 7.9 % (15.3-44.8); RBC Red Blood Cell Count 3.45 M/uL (3.86-4.86)
[2021-10-22] MEDS: ARFORMOTEROL TARTRATE 15 MCG/2 ML VIAL.NEB NEB SCH (08:00)
--- NOTE | 2021-10-22 10:11 | P.DS ---
Admission Date: 10/06/21 Discharge Date: 10/22/21 Primary Care Provider: [facility] Disposition: Reason for Admission: RUL lung mass Procedures: .CT Chest 07/2021: COMPARISON: Thorax Wo Con dated 01/20/2020 TECHNIQUE: Approximately 100 mL nonionic IV contrast was administered to the patient. All CT scans are performed using dose optimization technique as appropriate and may include automated exposure control or mA/KV adjustment according to patient size. FINDINGS: 8.1 cm mass along the right upper lung. There is a second pleural based mass with central low attenuation in the right lower lung measuring 2.7 cm. Emphysema is present.Coronary artery calcifications. Cardiomegaly. Sternotomy. Possible low-density lesion in the right hepatic lobe. Cholelithiasis. 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 Atherosclerosis. No renal ureteral calculi identified. No bowel obstruction. Bladder is unremarkable. Hysterectomy No bowel obstruction, free air, free fluid or abscess. No worrisome osseous finding. Sternotomy. Multilevel degenerative changes are present in the spine. IMPRESSION: Two masses in the right lung, the larger measuring over 8 cm . This is suspicious for neoplasm. There is a more indeterminate right lower lobe process with a broader differential. Could consider PET-CT or percutaneous biopsy for further evaluation. CXR: COMPARISON: CT chest August 03, portable chest August 03 TECHNIQUE: AP portable chest image was obtained 10/06/2021 3:14 pm . FINDINGS: Chronic interstitial lung disease is present in both lung martinez. Focally more prominent lung parenchymal opacification in the right base believed to be part of the posterior right base mass detailed on the August 03 CT chest study. A larger 8 centimeter mass in the lateral upper right lung field again noted. These masses are not clearly different from prior imaging. No significant failure or volume overload. Sternotomy wires are in place. Heart and vasculature are normal. No measurable pleural effusion and no pneumothorax. No acute bony abnormality seen. No acute aortic findings suspected. IMPRESSION: Two right-side chest masses are present superimposed on chronic fibrotic lung change. No acute chest finding seen. No significant change from the July imaging. 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 TECHNIQUE: Real-time sonographic evaluation of the left upper extremity deep venous systems was performed. FINDINGS: Normal compressibility, flow augmentation, phasic flow and spontaneous flow are identified in the left upper extremity deep venous system. No intraluminal filling defects seen. Internal jugular and subclavian veins are normal as well. Superficial cephalic vein was not well visualized. IMPRESSION: No DVT in the left upper extremity. Follow up CXR 10/17/2021: COMPARISON: October 10, 2021 FINDINGS: Overall no significant change in the right lung masses. A lung consolidation is not seen. Heart remains enlarged. Postsurgical changes involve the chest CT Chest: COMPARISON: Chest Abd Pelvis Wo Con dated 08/03/2021; Thorax Wo Con dated 01/20/2020; Lung Biopsy Perc w/CT dated 10/10/2021 TECHNIQUE: Axial 5 mm thick images of the chest were obtained without IV contrast. All CT scans are performed using dose optimization technique as appropriate and may include automated exposure control or mA/KV adjustment according to patient size. FINDINGS: The large lobulated, recently biopsied mass of the posterolateral right chest has enlarged since the August 03 comparison. The mass is 9.1 x 4.5 cm compared to 18.1 x 3.3 centimeter size in July. Furthermore, there is now invasion of the chest wall with bone destructive changes seen in the right fourth and fifth ribs. The pleural abutting mass in the posterior lower right lung field approximately 3 cm has not changed. Trace amount of pleural fluid seen in the right hemithorax. No new or progressive left lung field finding. No pneumothorax. Abnormal mediastinal lymphadenopathy pattern not significantly different from the July study. Full extent is difficult to characterize in the absence of IV contrast. No gross aortic dilatation. Dense aortic calcifications are present. There are also dense coronary artery calcifications. No pericardial effusion. No abnormal axillary lymphadenopathy. No adrenal masses are seen in the upper abdomen. Liver assessment is limited. Low-density mass in the posterior right lobe is again noted. IMPRESSION: The large malignant mass of the posterolateral upper right chest has enlarged since July and is now invading the chest wall with bone destruction in the third and fourth ribs. Approximately 3 centimeter pleural abutting mass in the posterior lower right lung field has not changed. Mediastinal and hilar lymphadenopathy pattern not clearly different. Brief History of Present Illness: 81-year-old -[place] female with history of atrial fibrillation not on chronic anticoagulation therapy, diabetes mellitus type 2, hypertension, hyperlipidemia, history of CVA with known lung mass presents emergency depar tment for chest pain and generalized weakness. Patient also with dementia, oriented x1 living with daughters currently. Daughters report that patient had a fall last week and ever since then has been much more weak and not getting out of bed. Patient was evaluated in the emergency department labs were significant for creatinine 1.35 GFR 46 glucose 134 calcium 11 initial troponin 0.[address] changes. Patient also noted to have urinary tract infection with leuk esterase on dip and bacteria on microscopic analysis. Patient was given Rocephin, during ED stay patient became significantly hypertensive with blood pressure around 250/220, patient was given hydralazine, ED provider wishes to admit for further evaluation and management. Hospital Course: Hypertensive urgency with underlying primary hypertension Hypercalcemia with abnormal CT scan large malignant mass of the posterior lateral upper right chest enlarged since July now invading the chest wall with bony destruction to the third and fourth ribs status post lung biopsy with pathology showing squamous cell carcinoma COPD with history of tobacco use Elevated troponin likely ischemic demand with history of CAD/CABG Medical debility/generalized weakness after fall Atrial fibrillation not on chronic anticoagulation therapy Diabetes mellitus type 2 Hyperlipidemia CKD 3 with hypernatremia and hypercalcemia Leukocytosis etiology unknown likely related to underlying cancer Dementia Pt had complex hospital course ( see prognoss noted for detailed info) complicated with Hypertensive urgency with underlying primary hypertension, Episode of second/third degree block with Hypercalcemia with abnormal CT scan large malignant mass of the posterior lateral upper right chest enlarged since July now invading the chest wall with bony destruction to the third and fourth ribs status post lung biopsy with pathology showing squamous cell carcinoma: as well as Elevated troponin likely ischemic demand with history of CAD/CABG with A fib , Hyperkalemia with renal insuff, and DM, give he demenita, and poor overall prognosis , family decide to proceed with usp and hospice , pt found today in her bed at 6 40 Vital Signs/Physical Exam: Temp Pulse Resp BP Pulse Ox 97.6 F 76 16 109/50 L 98 10/22/21 06:14 10/22/21 06:14 10/22/21 06:14 10/22/21 06:14 10/22/21 06:14 Laboratory Data at Discharge: WBC 12.40 K/uL (4.3-10.9) H D 10/22/21 05:13 Hgb 11.0 g/dL (12.0-15.0) L 10/22/21 05:13 Hct 34.6 % (36.0-45.0) L 10/22/21 05:13 Plt Count 212 K/uL (152-406) 10/22/21 05:13 PT 13.7 SECONDS (9.5-12.5) H 10/06/21 15:45 INR 1.19 10/06/21 15:45 Sodium 133 mmol/L (136-145) L 10/22/21 05:13 Potassium 4.4 mmol/L (3.5-5.1) 10/22/21 05:13 Potassium 4.4 mmol/L (3.5-5.1) 10/22/21 05:13 BUN 45 mg/dL (7-18) H 10/22/21 05:13 Creatinine 2.71 mg/dL (0.55-1.3) H D 10/22/21 05:13 Glucose 185 mg/dL (74-106) H 10/22/21 05:13 Phosphorus 6.0 mg/dL (2.5-4.9) H D 10/22/21 05:13 Magnesium 2.1 mg/dL (1.8-2.4) 10/22/21 05:13 Total Bilirubin 0.9 mg/dL (0.2-1.0) 10/16/21 14:03 AST 28 U/L (15-37) 10/16/21 14:03 ALT 30 U/L (12-78) 10/16/21 14:03 Alkaline Phosphatase 79 U/L (45-117) 10/16/21 14:03 Troponin I 0.40 ng/mL (0.0-0.045) H 10/07/21 06:46 Triglycerides 123 mg/dL (<150) 10/07/21 06:46 Cholesterol 158 mg/dL (<200) 10/07/21 06:46 HDL Cholesterol 50 mg/dL (40-60) 10/07/21 06:46 Cholesterol/HDL Ratio 3.16 10/07/21 06:46 Home Medications: Aspirin [Aspirin EC 81 MG] 1 tab PO DAILY 09/08/15 Atorvastatin Calcium 40 mg PO DAILY 09/10/18 Gabapentin [Neurontin] 100 mg PO QID PRN 10/08/21 Insulin NPH Hum/Reg Insulin Hm [Humulin 70-30 Vial] 20 units SQ BID 10/08/21 Lisinopril [Zestril] 30 mg PO DAILY 10/08/21 Memantine HCl 5 mg PO DAILY 10/08/21 Metformin HCl 500 mg PO DAILY 10/08/21 Metoprolol Tartrate 12.5 mg PO BID 10/08/21 Solifenacin [Vesicare*] 5 mg PO DAILY 10/08/21 Tramadol HCl/Acetaminophen [Tramadol-Acetaminophn 37.5-325] 37.5 - 325 mg PO PRN 10/08/21 Followup: Unknown,U [Primary Care Provider] -
[2021-10-23 04:01] LABS: Albumin, (SPE) 2.4 g/dL (3.8-4.8); Alpha-1-Globulins 0.6 g/dL (0.2-0.3); Gamma Globulins 0.9 g/dL (0.8-1.7); INTERPRETATION REPORT
[2021-10-23 20:48] LABS: Vitamin D 1,25-Dihydroxy Total 35 pg/mL (18-72); Vitamin D,1,25-OH2, D2 <8 pg/mL
== END 2021-10-22 14:45 | disposition expired | DRG 180 ==
LOC: ER 13:55 → ERHOLD 18:53 → 2ND 21:52
PROVIDERS: ADMIT Family Medicine; ATTEND Family Medicine
PROC: 0BBC3ZX Excision of Right Upper Lung Lobe, Percutaneous Approach, Diagnostic (ICD-10-PCS; principal; 2021-10-10)
DX: C34.11 Malignant neoplasm of upper lobe, right bronchus or lung (principal); I50.23 Acute on chronic systolic (congestive) heart failure; N17.9 Acute kidney failure, unspecified; I44.2 Atrioventricular block, complete; E87.2 Acidosis; E87.0 Hyperosmolality and hypernatremia; I24.8 Other forms of acute ischemic heart disease; E46 Unspecified protein-calorie malnutrition; Z68.1 Body mass index [BMI] 19.9 or less, adult; N39.0 Urinary tract infection, site not specified; C79.51 Secondary malignant neoplasm of bone; I13.0 Hypertensive heart and chronic kidney disease with heart failure and stage 1 through stage 4 chronic kidney disease, or unspecified chronic kidney disease; I16.0 Hypertensive urgency; N18.30 Chronic kidney disease, stage 3 unspecified; I25.10 Atherosclerotic heart disease of native coronary artery without angina pectoris; F03.90 Unspecified dementia, unspecified severity, without behavioral disturbance, psychotic disturbance, mood disturbance, and anxiety; R53.81 Other malaise; E83.52 Hypercalcemia; E11.22 Type 2 diabetes mellitus with diabetic chronic kidney disease; J44.9 Chronic obstructive pulmonary disease, unspecified; E78.5 Hyperlipidemia, unspecified; D72.829 Elevated white blood cell count, unspecified; E87.6 Hypokalemia; Z87.891 Personal history of nicotine dependence; Z95.1 Presence of aortocoronary bypass graft; Z86.73 Personal history of transient ischemic attack (TIA), and cerebral infarction without residual deficits; Z66 Do not resuscitate; Z88.0 Allergy status to penicillin; Z20.822 Contact with and (suspected) exposure to COVID-19
CPT/HCPCS: 32405; 36415; 71045; 71250; 77012; 80048; 80053; 80061; 80069; 80076; 81003; 81015; 82040; 82306; 82652; 82805; 82947; 83519; 83520; 83735; 83880; 83970; 84100; 84132; 84145; 84165; 84439; 84443; 84484; 85025; 85610; 86334; 87040; 87086; 87088; 88305; 93005; 93306; 93971; 96365; 96375; 97110; 97161; 97530; 99284; J0360; J1644; J1650; J2250; J2310; J2405; J2430; J2920; J3010; J3480; J7030; J7040; J7121; J7512; J7605; J7799; U0003